=== PATIENT | female | born 1940 | race Caucasian/White ===

== ENCOUNTER 2020-06-25 08:09 | Outpatient (REF) | payer MEDICARE, SELFPAY ==
--- NOTE | 2020-06-25 08:38 | XR_ITS ---
EXAMINATION: XR RIBS, RIGHT CLINICAL INFORMATION: Pleurodynia, no injury. COMPARISON: 07/23/2014 TECHNIQUE: 3 views of the right ribs were obtained. Frontal view of the chest. FINDINGS: Lungs are clear. No consolidation, pneumothorax, or pleural effusion. The cardiomediastinal silhouette and pulmonary vasculature are normal. Aortic calcifications. Cervical fusion hardware noted. Osseous structures are unremarkable. Ribs are intact. No fractures are identified. Right upper quadrant surgical clips noted. XR/XR ribs RT min 3V w CXR1V IMPRESSION: No acute pulmonary finding. No focal rib abnormality identified.
--- NOTE | 2020-06-25 08:38 | XR_ITS ---
EXAMINATION: XR SCAPULA, RIGHT CLINICAL INFORMATION: Disorders of the bone/shoulder. COMPARISON: 08/06/2018 TECHNIQUE: AP and scapular Y views of the right scapula. FINDINGS: There is no fracture seen. Appropriate alignment of the glenohumeral joint. The acromioclavicular joint is intact. Degenerative changes present. The visualized lung is clear. The visualized ribs are intact. XR/XR scapula RT IMPRESSION: No fracture or malalignment. Degenerative change.
--- NOTE | 2020-06-25 08:38 | XR_ITS ---
EXAMINATION: XR SHOULDER, LEFT CLINICAL INFORMATION: Left shoulder pain. No injury. COMPARISON: None TECHNIQUE: Three views of the left shoulder. FINDINGS: No fracture or dislocation. The glenohumeral joint is well aligned. The joint space is maintained. Small marginal osteophytes are present. Mild hypertrophic degenerative change of the acromioclavicular joint. The visualized lung is clear. The visualized ribs are intact. Partially visualized cervical fusion hardware. XR/XR shoulder LT min 2V IMPRESSION: Mild degenerative changes throughout the left shoulder.
[2020-06-25 11:16] LABS: MANUAL DIFF FLAG NO
[2020-06-25 11:25] LABS: Basophils Percent Auto 0.3 % (0-2); Eosinophils Absolute Auto 0.1 X10*3/uL (0.0-0.4); Eosinophils Percent Auto 1.3 % (0-4); Hematocrit 35.8 % (37-47); Hemoglobin 11.7 g/dl (12.0-16.0); Imm Gran Abs Auto 0.01 X10*3/uL (0.00-0.03); Imm Gran Pct Auto 0.2 % (0.0-0.4); Lymphocytes Absolute Auto 1.5 X10*3/uL (1.2-4.9); Lymphocytes Percent Auto 23.7 % (20-40); Mean Corpuscular HGB Conc 32.7 g/dl (31.0-35.0); Mean Corpuscular Hemoglobin 30.3 pg (27.0-33.0); Mean Corpuscular Volume 92.7 fL (80-98); Mean Platelet Volume 10.2 fL (9.4-12.3); Monocytes Absolute Auto 0.4 X10*3/uL (0.1-1.2); Monocytes Percent Auto 6.9 % (2-11); Neutrophils Absolute Auto 4.2 X10*3/uL (2.0-8.3); Neutrophils Percent Auto 67.6 % (45-73); Platelet Count 245 X10*3/uL (160-400); Red Blood Count 3.86 X10*6/uL (4.20-5.50); Red Cell Distribution Width 12.6 % (11.0-16.0); White Blood Count 6.2 X10*3/uL (4.8-10.8)
[2020-06-25 11:35] LABS: Glucose Urine UA NEG (NEG); Leukocyte Esterase Urine NEG (NEG); Nitrite Urine NEG (NEG); Specific Gravity - Urine >= 1.030 (1.005-1.025); Urine Blood TRACE (NEG); Urine Ketones NEG (NEG); Urine Protein NEG (NEG-TRACE)
[2020-06-25 11:36] LABS: Appearance Urine CLOUDY; Color Urine YELLOW
[2020-06-25 11:45] LABS: Amorphous Sediment Urine 3+ /LPF; RBC Urine 0-2 /HPF (0); Squamous Epithelial Cell Urine 1+ /LPF; WBC Urine 0 /HPF (0-4)
[2020-06-25 12:08] LABS: Alanine Aminotransferase 16 U/L (0-31); Albumin Level 4.1 g/dL (3.5-5.0); Alkaline Phosphatase 101 U/L (39-117); Anion Gap 14 (12-20); Aspartate Amino Transferase 18 U/L (5-31); Bilirubin Total 0.4 mg/dL (0.0-1.0); Blood Urea Nitrogen 17 mg/dL (9-16); Calcium 8.9 mg/dL (8.4-10.2); Carbon Dioxide 23 mmol/L (22-29); Chloride 106 mmol/L (96-108); Cholesterol 198 mg/dL; Estimated Glomerular Filt Rate > 60; Glucose Fasting 101 mg/dL (60-99); HDL Cholesterol 53 mg/dL; LDL Cholesterol Calculated 116 mg/dl; Potassium 4.4 mmol/l (3.3-5.1); Sodium 139 mmol/L (135-145); Total Protein 6.8 g/dL (6.5-8.0); Triglycerides 145 mg/dL
[2020-06-25 12:14] LABS: TSH reflex Free T4 2.54 mIU/mL (0.32-4.0)
== END 2020-06-25 08:10 | disposition home or self-care (01) ==
LOC: HO.HMGCLDS 08:09
PROVIDERS: PCP Internal Medicine; Visit Provider Internal Medicine
DX: R07.81 Pleurodynia (principal); R05 Cough; M89.8X1 Other specified disorders of bone, shoulder; M54.6 Pain in thoracic spine; M25.512 Pain in left shoulder; I10 Essential (primary) hypertension; E78.00 Pure hypercholesterolemia, unspecified; E66.9 Obesity, unspecified
CPT/HCPCS: 36415; 71101; 73010; 73030; 80053; 80061; 81001; 84443; 85025

== ENCOUNTER 2020-10-20 06:45 | Outpatient (REF) | payer MEDICARE, SELFPAY ==
[2020-10-20 11:25] LABS: MANUAL DIFF FLAG NO
[2020-10-20 11:27] LABS: Glucose Urine UA NEG (NEG); Leukocyte Esterase Urine NEG (NEG); Nitrite Urine NEG (NEG); Specific Gravity - Urine 1.025 (1.005-1.025); Urine Blood NEG (NEG); Urine Ketones NEG (NEG); Urine Protein NEG (NEG-TRACE)
[2020-10-20 11:28] LABS: Appearance Urine CLEAR; Color Urine YELLOW
[2020-10-20 11:36] LABS: Basophils Percent Auto 0.3 % (0-2); Eosinophils Absolute Auto 0.1 X10*3/uL (0.0-0.4); Eosinophils Percent Auto 1.8 % (0-4); Hematocrit 36.5 % (37-47); Hemoglobin 11.7 g/dl (12.0-16.0); Imm Gran Abs Auto 0.01 X10*3/uL (0.00-0.03); Imm Gran Pct Auto 0.1 % (0.0-0.4); Lymphocytes Absolute Auto 1.9 X10*3/uL (1.2-4.9); Lymphocytes Percent Auto 28.4 % (20-40); Mean Corpuscular HGB Conc 32.1 g/dl (31.0-35.0); Mean Corpuscular Hemoglobin 30.5 pg (27.0-33.0); Mean Corpuscular Volume 95.1 fL (80-98); Mean Platelet Volume 10.4 fL (9.4-12.3); Monocytes Absolute Auto 0.6 X10*3/uL (0.1-1.2); Monocytes Percent Auto 9.3 % (2-11); Neutrophils Percent Auto 60.1 % (45-73); Platelet Count 237 X10*3/uL (160-400); Red Blood Count 3.84 X10*6/uL (4.20-5.50); Red Cell Distribution Width 13.2 % (11.0-16.0); White Blood Count 6.7 X10*3/uL (4.8-10.8)
[2020-10-20 11:51] LABS: Alanine Aminotransferase 18 U/L (0-31); Albumin Level 4.1 g/dL (3.5-5.0); Alkaline Phosphatase 110 U/L (39-117); Anion Gap 14 (12-20); Aspartate Amino Transferase 18 U/L (5-31); Bilirubin Total < 0.2 mg/dL (0.0-1.0); Blood Urea Nitrogen 14 mg/dL (9-16); Calcium 9.1 mg/dL (8.4-10.2); Carbon Dioxide 24 mmol/L (22-29); Chloride 106 mmol/L (96-108); Cholesterol 180 mg/dL; Estimated Glomerular Filt Rate > 60; Glucose Fasting 101 mg/dL (60-99); HDL Cholesterol 52 mg/dL; LDL Cholesterol Calculated 104 mg/dl; Potassium 3.7 mmol/L (3.3-5.1); Sodium 140 mmol/L (135-145); Total Protein 6.8 g/dL (6.5-8.0); Triglycerides 120 mg/dL
[2020-10-20 12:11] LABS: TSH reflex Free T4 3.12 uIU/mL (0.32-4.0)
[2020-10-20 12:24] LABS: Erythrocyte Sedimentation Rate 29 MM/HR (0-20)
== END 2020-10-20 06:46 | disposition home or self-care (01) ==
LOC: HO.HMGCLDS 06:45
PROVIDERS: PCP Internal Medicine; Visit Provider Internal Medicine
DX: E78.00 Pure hypercholesterolemia, unspecified (principal); I10 Essential (primary) hypertension; M25.512 Pain in left shoulder; M89.49 Other hypertrophic osteoarthropathy, multiple sites
CPT/HCPCS: 36415; 80053; 80061; 81003; 84443; 85025; 85652

== ENCOUNTER 2020-10-22 12:00 | Outpatient (REF) | payer MEDICARE, SELFPAY ==
--- NOTE | ~2020-10-22 | XR_ITS ---
EXAMINATION: XR CERVICAL SPINE CLINICAL INFORMATION: Cervicalgia COMPARISON: 09/01/2019 TECHNIQUE: 5 views of the cervical spine FINDINGS: Status post anterior fusion at C5-C7. There is stable anatomic alignment. Some mild disc height loss and bony spurring in the C3-C4 and C4-C5 levels. Bones are demineralized. Bony neuroforamina are grossly patent. Dens is intact. Prevertebral soft tissues are unremarkable. XR/XR cervical spine 4V IMPRESSION: Stable postsurgical changes in the cervical spine without hardware complication.
== END 2020-10-22 12:01 | disposition home or self-care (01) ==
LOC: HO.XRAY 12:00
PROVIDERS: PCP Internal Medicine; Visit Provider Internal Medicine
DX: M54.2 Cervicalgia (principal)
CPT/HCPCS: 72050

== ENCOUNTER 2020-12-14 07:39 | Outpatient (REF) | payer MEDICARE, SELFPAY ==
--- NOTE | ~2020-12-14 | XR_ITS ---
EXAMINATION: XR KNEE STANDING, BILATERAL XR KNEE, RIGHT XR KNEE, LEFT CLINICAL INFORMATION: Pain. COMPARISON: Bilateral knee radiographs dated 07/14/2016 TECHNIQUE: AP standing as well as lateral and sunrise views of the right and left knee. FINDINGS: RIGHT KNEE: Total right knee arthroplasty. No acute hardware or osseous fracture. No perihardware lucency to suggest loosening or infection. No significant joint effusion. Atherosclerotic calcifications. LEFT KNEE: Moderate medial compartment joint space narrowing. Tricompartmental marginal osteophytes. No osseous erosion. No fracture or dislocation. No significant joint effusion. Atherosclerotic calcifications. XR/XR knee RT 2V IMPRESSION: RIGHT KNEE: Total right knee arthroplasty without evidence of complication. LEFT KNEE: Moderate medial as well as mild patellofemoral and lateral compartment osteoarthritis. Findings appear progressed when compared to the most recent radiographs.
--- NOTE | ~2020-12-14 | XR_ITS ---
EXAMINATION: XR KNEE STANDING, BILATERAL XR KNEE, RIGHT XR KNEE, LEFT CLINICAL INFORMATION: Pain. COMPARISON: Bilateral knee radiographs dated 07/14/2016 TECHNIQUE: AP standing as well as lateral and sunrise views of the right and left knee. FINDINGS: RIGHT KNEE: Total right knee arthroplasty. No acute hardware or osseous fracture. No perihardware lucency to suggest loosening or infection. No significant joint effusion. Atherosclerotic calcifications. LEFT KNEE: Moderate medial compartment joint space narrowing. Tricompartmental marginal osteophytes. No osseous erosion. No fracture or dislocation. No significant joint effusion. Atherosclerotic calcifications. XR/XR knee LT 2V IMPRESSION: RIGHT KNEE: Total right knee arthroplasty without evidence of complication. LEFT KNEE: Moderate medial as well as mild patellofemoral and lateral compartment osteoarthritis. Findings appear progressed when compared to the most recent radiographs.
--- NOTE | ~2020-12-14 | XR_ITS ---
EXAMINATION: XR KNEE STANDING, BILATERAL XR KNEE, RIGHT XR KNEE, LEFT CLINICAL INFORMATION: Pain. COMPARISON: Bilateral knee radiographs dated 07/14/2016 TECHNIQUE: AP standing as well as lateral and sunrise views of the right and left knee. FINDINGS: RIGHT KNEE: Total right knee arthroplasty. No acute hardware or osseous fracture. No perihardware lucency to suggest loosening or infection. No significant joint effusion. Atherosclerotic calcifications. LEFT KNEE: Moderate medial compartment joint space narrowing. Tricompartmental marginal osteophytes. No osseous erosion. No fracture or dislocation. No significant joint effusion. Atherosclerotic calcifications. XR/XR knee standing BI IMPRESSION: RIGHT KNEE: Total right knee arthroplasty without evidence of complication. LEFT KNEE: Moderate medial as well as mild patellofemoral and lateral compartment osteoarthritis. Findings appear progressed when compared to the most recent radiographs.
== END 2020-12-14 07:40 | disposition home or self-care (01) ==
LOC: HO.HOSX 07:39
PROVIDERS: Visit Provider Orthopaedic Surgery
DX: M17.12 Unilateral primary osteoarthritis, left knee (principal); Z96.651 Presence of right artificial knee joint; Z87.891 Personal history of nicotine dependence
CPT/HCPCS: 20610; 73560; 73565; 99202; J1100

== ENCOUNTER 2021-01-06 11:16 | Outpatient (REF) | payer MEDICARE, SELFPAY ==
--- NOTE | ~2021-01-06 | MM_ITS ---
EXAMINATION: MM SCREENING DIGITAL BREAST TOMOSYNTHESIS, BILATERAL CLINICAL INFORMATION: Screening. Asymptomatic. The lifetime risk of breast cancer based on the Tyrer-Cuzick Model is 3.5%. COMPARISON: Mammography: January 03, 2020 and studies dating back to May 20, 2014 TECHNIQUE: Digital breast tomosynthesis is performed in both the craniocaudal and mediolateral oblique views along with computer-aided detection (CAD). Synthesized 2D images are generated from the tomosynthesis. FINDINGS: There are scattered areas of fibroglandular density (ACR BI-RADS breast composition Category b). There are no significant masses, abnormal calcifications, or other abnormalities. There is stability of multiplicity and bilaterality of calcifications in circumscribed densities some of which appear to be related to prominent ducts. MM/MM tomosynthesis screening BI IMPRESSION: There are no significant changes from prior study. ASSESSMENT: BI-RADS 2: Benign RECOMMENDATION: Routine annual mammography screening. This patient's information was entered into a reminder system with a target due date for their next mammogram.
== END 2021-01-06 11:17 | disposition home or self-care (01) ==
LOC: HO.MAMMO 11:16
PROVIDERS: Visit Provider Internal Medicine
DX: Z12.31 Encounter for screening mammogram for malignant neoplasm of breast (principal)
CPT/HCPCS: 77063; 77067

== ENCOUNTER → 2021-01-15 10:30 | Outpatient (BNVA) | payer MEDICARE, SELFPAY | PROVIDERS: PCP Internal Medicine; Visit Provider Orthopaedic Surgery | DX: M17.12 Unilateral primary osteoarthritis, left knee (principal) | CPT/HCPCS: 20610; 99212; J7318 ==

== ENCOUNTER 2021-02-26 07:56 | Outpatient (REF) | payer MEDICARE, SELFPAY ==
[2021-02-26 12:10] LABS: Appearance Urine CLEAR; Color Urine YELLOW; Glucose Urine UA NEG (NEG); Leukocyte Esterase Urine NEG (NEG); Nitrite Urine NEG (NEG); PH 5.5 (5.0-8.0); Specific Gravity - Urine >= 1.030 (1.005-1.025); UACC Culture Trigger NO; Urine Blood TRACE (NEG); Urine Ketones NEG (NEG); Urine Protein NEG (NEG-TRACE)
[2021-02-26 12:22] LABS: MANUAL DIFF FLAG NO
[2021-02-26 12:25] LABS: RBC Urine 0-2 /HPF (0); Squamous Epithelial Cell Urine 2+ /LPF; WBC Urine 0-2 /HPF (0-4)
[2021-02-26 12:33] LABS: Basophils Percent Auto 0.1 % (0-2); Eosinophils Absolute Auto 0.1 X10*3/uL (0.0-0.4); Hematocrit 34.8 % (37-47); Hemoglobin 11.7 g/dl (12.0-16.0); Imm Gran Abs Auto 0.02 X10*3/uL (0.00-0.03); Imm Gran Pct Auto 0.3 % (0.0-0.4); Lymphocytes Absolute Auto 1.3 X10*3/uL (1.2-4.9); Mean Corpuscular HGB Conc 33.6 g/dl (31.0-35.0); Mean Corpuscular Hemoglobin 31.1 pg (27.0-33.0); Mean Corpuscular Volume 92.6 fL (80-98); Mean Platelet Volume 10.1 fL (9.4-12.3); Monocytes Absolute Auto 0.5 X10*3/uL (0.1-1.2); Monocytes Percent Auto 6.7 % (2-11); Neutrophils Absolute Auto 5.4 X10*3/uL (2.0-8.3); Neutrophils Percent Auto 73.9 % (45-73); Platelet Count 270 X10*3/uL (160-400); Red Blood Count 3.76 X10*6/uL (4.20-5.50); Red Cell Distribution Width 12.9 % (11.0-16.0); White Blood Count 7.3 X10*3/uL (4.8-10.8)
[2021-02-26 12:58] LABS: Alanine Aminotransferase 15 U/L (0-31); Albumin Level 4.1 g/dL (3.5-5.0); Alkaline Phosphatase 106 U/L (39-117); Anion Gap 12 (12-20); Aspartate Amino Transferase 17 U/L (5-31); Bilirubin Total 0.5 mg/dL (0.0-1.0); Blood Urea Nitrogen 13 mg/dL (9-16); Calcium 9.4 mg/dL (8.4-10.2); Carbon Dioxide 25 mmol/L (22-29); Chloride 104 mmol/L (96-108); Cholesterol 193 mg/dL; Estimated Glomerular Filt Rate > 60; Glucose Fasting 99 mg/dL (60-99); HDL Cholesterol 60 mg/dL; LDL Cholesterol Calculated 108 mg/dl; Potassium 4.2 mmol/L (3.3-5.1); Sodium 137 mmol/L (135-145); Total Protein 6.8 g/dL (6.5-8.0); Triglycerides 129 mg/dL
[2021-02-26 13:24] LABS: TSH reflex Free T4 1.58 uIU/mL (0.32-4.0)
== END 2021-02-26 07:57 | disposition home or self-care (01) ==
LOC: HO.HMGCLDS 07:56
PROVIDERS: PCP Internal Medicine; Visit Provider Internal Medicine
DX: I10 Essential (primary) hypertension (principal); E78.00 Pure hypercholesterolemia, unspecified; E66.9 Obesity, unspecified
CPT/HCPCS: 36415; 80053; 80061; 81001; 84443; 85025

== ENCOUNTER → 2021-03-22 09:26 | Outpatient (BNVA) | payer MEDICARE, SELFPAY | PROVIDERS: PCP Internal Medicine; Visit Provider Orthopaedic Surgery | DX: M17.12 Unilateral primary osteoarthritis, left knee (principal) | CPT/HCPCS: 99212; J7318 ==

== ENCOUNTER → 2021-05-05 09:30 | Outpatient (BNVA) | payer MEDICARE, SELFPAY | PROVIDERS: PCP Internal Medicine; Visit Provider Orthopaedic Surgery | DX: Z01.812 Encounter for preprocedural laboratory examination (principal); Z01.810 Encounter for preprocedural cardiovascular examination ==

== ENCOUNTER 2021-07-21 07:09 | Outpatient (REF) | payer MEDICARE, SELFPAY ==
--- NOTE | ~2021-07-21 | XR_ITS ---
EXAMINATION: XR RIBS, RIGHT CLINICAL INFORMATION: Pleurodynia COMPARISON: Previous chest x-rays for a and rib x-ray May 2020 TECHNIQUE: 3 views of the right ribs and one view of the chest were obtained. FINDINGS: The cardiac and mediastinal contours are stable. The lungs are clear. There is no pleural effusion or pneumothorax. There are degenerative changes of the spine. There are postsurgical changes to the lower cervical spine. No rib fracture is seen. XR/XR ribs RT min 3V w CXR1V IMPRESSION: Degenerative changes of the thoracic spine otherwise unremarkable exam. No rib fracture seen.
[2021-07-21 11:13] LABS: MANUAL DIFF FLAG NO
[2021-07-21 11:15] LABS: Appearance Urine CLEAR; Color Urine YELLOW; Glucose Urine UA NEG (NEG); Leukocyte Esterase Urine NEG (NEG); Nitrite Urine NEG (NEG); PH 5.5 (5.0-8.0); Specific Gravity - Urine 1.025 (1.005-1.025); Urine Blood NEG (NEG); Urine Ketones NEG (NEG); Urine Protein NEG (NEG-TRACE)
[2021-07-21 11:18] LABS: Basophils Percent Auto 0.3 % (0-2); Eosinophils Absolute Auto 0.1 X10*3/uL (0.0-0.4); Hematocrit 37.9 % (37.0-47.0); Hemoglobin 12.2 g/dl (12.0-16.0); Imm Gran Abs Auto 0.03 X10*3/uL (0.00-0.03); Imm Gran Pct Auto 0.5 % (0.0-0.4); Lymphocytes Absolute Auto 1.6 X10*3/uL (1.2-4.9); Lymphocytes Percent Auto 24.1 % (20-40); Mean Corpuscular HGB Conc 32.2 g/dl (31.0-35.0); Mean Corpuscular Hemoglobin 29.9 pg (27.0-33.0); Mean Corpuscular Volume 92.9 fL (80.0-98.0); Mean Platelet Volume 10.3 fL (9.4-12.3); Monocytes Absolute Auto 0.5 X10*3/uL (0.1-1.2); Monocytes Percent Auto 7.3 % (2-11); Neutrophils Absolute Auto 4.2 x10*3/uL (2.0-8.3); Neutrophils Percent Auto 65.8 % (45-73); Platelet Count 261 X10*3/uL (160-400); Red Blood Count 4.08 X10*6/uL (4.20-5.50); Red Cell Distribution Width 13.1 % (11.0-16.0); White Blood Count 6.4 X10*3/uL (4.8-10.8)
[2021-07-21 11:52] LABS: Alanine Aminotransferase 13 U/L (0-31); Albumin Level 4.1 g/dL (3.5-5.0); Alkaline Phosphatase 106 U/L (39-117); Anion Gap 14 (12-20); Aspartate Amino Transferase 16 U/L (5-31); Bilirubin Total 0.3 mg/dL (0.0-1.0); Blood Urea Nitrogen 16 mg/dL (9-16); Calcium 9.5 mg/dL (8.4-10.2); Carbon Dioxide 23 mmol/L (22-29); Chloride 109 mmol/L (96-108); Cholesterol 192 mg/dL; Estimated Glomerular Filt Rate > 60; Glucose Fasting 106 mg/dL (60-99); HDL Cholesterol 52 mg/dL; LDL Cholesterol Calculated 116 mg/dl; Potassium 4.1 mmol/L (3.3-5.1); Sodium 142 mmol/L (135-145); Total Protein 7.1 g/dL (6.5-8.0); Triglycerides 124 mg/dL
[2021-07-21 11:59] LABS: Vitamin D 25-OH Total 25.3 ng/mL (>30)
== END 2021-07-21 07:10 | disposition home or self-care (01) ==
LOC: HO.HMGCLDS 07:09
PROVIDERS: Visit Provider Internal Medicine
DX: R07.81 Pleurodynia (principal); E55.9 Vitamin D deficiency, unspecified; E78.00 Pure hypercholesterolemia, unspecified; I10 Essential (primary) hypertension
CPT/HCPCS: 36415; 71101; 80053; 80061; 81003; 82306; 84443; 85025

== ENCOUNTER 2021-11-15 07:29 | Outpatient (REF) | payer MEDICARE, SELFPAY ==
[2021-11-15 11:18] LABS: MANUAL DIFF FLAG NO
[2021-11-15 11:27] LABS: Basophils Percent Auto 0.4 % (0-2); Eosinophils Absolute Auto 0.1 X10*3/uL (0.0-0.4); Eosinophils Percent Auto 1.5 % (0-4); Hematocrit 34.8 % (37.0-47.0); Hemoglobin 11.5 g/dl (12.0-16.0); Imm Gran Abs Auto 0.03 X10*3/uL (0.00-0.03); Imm Gran Pct Auto 0.4 % (0.0-0.4); Lymphocytes Absolute Auto 1.6 X10*3/uL (1.2-4.9); Lymphocytes Percent Auto 24.6 % (20-40); Mean Corpuscular Hemoglobin 30.8 pg (27.0-33.0); Mean Corpuscular Volume 93.3 fL (80.0-98.0); Mean Platelet Volume 10.2 fL (9.4-12.3); Monocytes Absolute Auto 0.5 X10*3/uL (0.1-1.2); Monocytes Percent Auto 8.1 % (2-11); Neutrophils Absolute Auto 4.3 x10*3/uL (2.0-8.3); Platelet Count 263 X10*3/uL (160-400); Red Blood Count 3.73 X10*6/uL (4.20-5.50); Red Cell Distribution Width 13.1 % (11.0-16.0); White Blood Count 6.7 X10*3/uL (4.8-10.8)
[2021-11-15 12:01] LABS: Alanine Aminotransferase 13 U/L (0-31); Albumin Level 4.1 g/dL (3.5-5.0); Alkaline Phosphatase 107 U/L (39-117); Anion Gap 11 (12-20); Aspartate Amino Transferase 15 U/L (5-31); Bilirubin Total 0.4 mg/dL (0.0-1.0); Blood Urea Nitrogen 13 mg/dL (9-16); Calcium 9.2 mg/dL (8.4-10.2); Carbon Dioxide 26 mmol/L (22-29); Chloride 104 mmol/L (96-108); Cholesterol 199 mg/dL; Estimated Glomerular Filt Rate > 60; Glucose Fasting 110 mg/dL (60-99); HDL Cholesterol 51 mg/dL; LDL Cholesterol Calculated 119 mg/dl; Potassium 5.3 mmol/L (3.3-5.1); Sodium 136 mmol/L (135-145); Total Protein 6.8 g/dL (6.5-8.0); Triglycerides 149 mg/dL
[2021-11-15 12:07] LABS: TSH reflex Free T4 2.99 uIU/mL (0.32-4.0); Vitamin D 25-OH Total 25.4 ng/mL (>30)
== END 2021-11-15 07:30 | disposition home or self-care (01) ==
LOC: HO.HMGCLDS 07:29
PROVIDERS: Visit Provider Internal Medicine
DX: E78.00 Pure hypercholesterolemia, unspecified (principal); I10 Essential (primary) hypertension; E55.9 Vitamin D deficiency, unspecified
CPT/HCPCS: 36415; 80053; 80061; 82306; 84443; 85025

== ENCOUNTER 2022-01-18 11:40 | Outpatient (REF) | payer MEDICARE, SELFPAY ==
--- NOTE | ~2022-01-18 | MM_ITS ---
EXAMINATION: MM SCREENING DIGITAL BREAST TOMOSYNTHESIS, BILATERAL CLINICAL INFORMATION: Screening. Asymptomatic. The lifetime risk of breast cancer based on the Tyrer-Cuzick Model is 1.5%. COMPARISON: Mammography: January 06, 2021 and studies dating back to May 20, 2014 TECHNIQUE: Digital breast tomosynthesis is performed in both the craniocaudal and mediolateral oblique views along with computer-aided detection (CAD). Synthesized 2D images are generated from the tomosynthesis. FINDINGS: There are scattered areas of fibroglandular density (ACR BI-RADS breast composition Category b). There are no new significant masses, abnormal calcifications, or other abnormalities. MM/MM tomosynthesis screening BI IMPRESSION: No significant changes from prior exam. ASSESSMENT: BI-RADS 1: Negative RECOMMENDATION: Routine annual mammography screening. This patient's information was entered into a reminder system with a target due date for their next mammogram.
== END 2022-01-18 11:41 | disposition home or self-care (01) ==
LOC: HO.MAMMO 11:40
PROVIDERS: Visit Provider Internal Medicine
DX: Z12.31 Encounter for screening mammogram for malignant neoplasm of breast (principal)
CPT/HCPCS: 77063; 77067

== ENCOUNTER 2022-03-22 06:11 | Outpatient (REF) | payer MEDICARE, SELFPAY ==
[2022-03-22 11:06] LABS: MANUAL DIFF FLAG NO
[2022-03-22 11:16] LABS: Appearance Urine Clear; Color Urine Yellow; Glucose Urine UA Negative (Negative); Leukocyte Esterase Urine Small (1+) (Negative); Nitrite Urine Negative (Negative); Specific Gravity - Urine 1.015 (1.005-1.025); UMIC TRIGGER UACC YES; Urine Blood Negative (Negative); Urine Ketones Negative (Negative); Urine Protein Negative (Neg-Trace)
[2022-03-22 11:28] LABS: Bacteria Urine None Seen (None Seen); Hyaline Casts Urine 0-2 /LPF (0-2); RBC Urine 0-2 /HPF (0-2); Squamous Epithelial Cell Urine 0-2 /HPF (0-2); UACC Culture Trigger YES; WBC Urine 0-5 /HPF (0-5)
[2022-03-22 11:35] LABS: Estimated Average Glucose 120 mg/dL; Hemoglobin A1c % 5.8 %
[2022-03-22 11:36] LABS: Basophils Percent Auto 0.3 % (0-2); Eosinophils Absolute Auto 0.1 X10*3/uL (0.0-0.4); Eosinophils Percent Auto 1.7 % (0-4); Hematocrit 34.9 % (37.0-47.0); Hemoglobin 11.4 g/dl (12.0-16.0); Imm Gran Abs Auto 0.03 X10*3/uL (0.00-0.03); Imm Gran Pct Auto 0.4 % (0.0-0.4); Lymphocytes Absolute Auto 1.9 X10*3/uL (1.2-4.9); Lymphocytes Percent Auto 27.7 % (20-40); Mean Corpuscular HGB Conc 32.7 g/dl (31.0-35.0); Mean Corpuscular Hemoglobin 30.5 pg (27.0-33.0); Mean Corpuscular Volume 93.3 fL (80.0-98.0); Mean Platelet Volume 10.3 fL (9.4-12.3); Monocytes Absolute Auto 0.6 X10*3/uL (0.1-1.2); Monocytes Percent Auto 8.5 % (2-11); Neutrophils Absolute Auto 4.2 x10*3/uL (2.0-8.3); Neutrophils Percent Auto 61.4 % (45-73); Platelet Count 270 X10*3/uL (160-400); Red Blood Count 3.74 X10*6/uL (4.20-5.50); Red Cell Distribution Width 13.4 % (11.0-16.0); White Blood Count 6.9 X10*3/uL (4.8-10.8)
[2022-03-22 12:05] LABS: Alanine Aminotransferase 13 U/L (0-31); Alkaline Phosphatase 101 U/L (39-117); Anion Gap 15 (12-20); Aspartate Amino Transferase 17 U/L (5-31); Bilirubin Total 0.2 mg/dL (0.0-1.0); Blood Urea Nitrogen 16 mg/dL (9-16); Calcium 9.4 mg/dL (8.4-10.2); Carbon Dioxide 25 mmol/L (22-29); Chloride 106 mmol/L (96-108); Cholesterol 197 mg/dL; Estimated Glomerular Filt Rate > 60; Glucose Fasting 103 mg/dL (60-99); HDL Cholesterol 49 mg/dL; LDL Cholesterol Calculated 114 mg/dl; Potassium 4.4 mmol/L (3.3-5.1); Sodium 142 mmol/L (135-145); Total Protein 6.8 g/dL (6.5-8.0); Triglycerides 174 mg/dL
[2022-03-22 12:30] LABS: TSH reflex Free T4 4.85 uIU/mL (0.32-4.0)
[2022-03-22 13:02] LABS: Free T4 (Free Thyroxine) 0.75 ng/dL (0.71-1.85)
== END 2022-03-22 06:12 | disposition home or self-care (01) ==
LOC: HO.HMGCLDS 06:11
PROVIDERS: PCP Internal Medicine; Visit Provider Internal Medicine
DX: I10 Essential (primary) hypertension (principal); E55.9 Vitamin D deficiency, unspecified; R73.01 Impaired fasting glucose; E78.00 Pure hypercholesterolemia, unspecified
CPT/HCPCS: 36415; 80053; 80061; 81001; 82306; 83036; 84439; 84443; 85025; 87086

== ENCOUNTER 2022-12-19 07:22 | Outpatient (REF) | payer MEDICARE, SELFPAY ==
[2022-12-19 11:32] LABS: MANUAL DIFF FLAG NO
[2022-12-19 11:43] LABS: Basophils Percent Auto 0.3 % (0-2); Eosinophils Absolute Auto 0.1 X10*3/uL (0.0-0.4); Eosinophils Percent Auto 1.7 % (0-4); Hematocrit 35.1 % (37.0-47.0); Hemoglobin 11.6 g/dl (12.0-16.0); Imm Gran Abs Auto 0.03 X10*3/uL (0.00-0.03); Imm Gran Pct Auto 0.4 % (0.0-0.4); Lymphocytes Absolute Auto 1.7 X10*3/uL (1.2-4.9); Lymphocytes Percent Auto 24.6 % (20-40); Mean Corpuscular Hemoglobin 30.4 pg (27.0-33.0); Mean Corpuscular Volume 91.9 fL (80.0-98.0); Mean Platelet Volume 10.1 fL (9.4-12.3); Monocytes Absolute Auto 0.6 X10*3/uL (0.1-1.2); Monocytes Percent Auto 8.3 % (2-11); Neutrophils Absolute Auto 4.5 x10*3/uL (2.0-8.3); Neutrophils Percent Auto 64.7 % (45-73); Platelet Count 258 X10*3/uL (160-400); Red Blood Count 3.82 X10*6/uL (4.20-5.50); Red Cell Distribution Width 12.9 % (11.0-16.0)
[2022-12-19 11:46] LABS: Appearance Urine Clear; Color Urine Yellow; Glucose Urine UA Negative (Negative); Leukocyte Esterase Urine Negative (Negative); Nitrite Urine Negative (Negative); PH 5.5 (5.0-9.0); Specific Gravity - Urine 1.015 (1.005-1.025); Urine Blood Negative (Negative); Urine Ketones Negative (Negative); Urine Protein Negative (Neg-Trace)
[2022-12-19 12:01] LABS: Alanine Aminotransferase 17 U/L (0-31); Alkaline Phosphatase 116 U/L (39-117); Anion Gap 13 (12-20); Aspartate Amino Transferase 20 U/L (5-31); Bilirubin Total 0.3 mg/dL (0.0-1.0); Blood Urea Nitrogen 13 mg/dL (9-16); Calcium 9.3 mg/dL (8.4-10.2); Carbon Dioxide 24 mmol/L (22-29); Chloride 103 mmol/L (96-108); Cholesterol 176 mg/dL; Estimated Glomerular Filt Rate > 60; Glucose Fasting 103 mg/dL (60-99); HDL Cholesterol 51 mg/dL; LDL Cholesterol Calculated 102 mg/dl; Potassium 4.1 mmol/L (3.3-5.1); Sodium 136 mmol/L (135-145); Total Protein 7.1 g/dL (6.5-8.0); Triglycerides 117 mg/dL
[2022-12-19 12:02] LABS: Estimated Average Glucose 120 mg/dL; Hemoglobin A1c % 5.8 %
[2022-12-19 12:18] LABS: Free T4 (Free Thyroxine) 0.74 ng/dL (0.71-1.85); Thyroid Stimulating Hormone 2.77 uIU/mL (0.32-4.0); Vitamin D 25-OH Total 43.4 ng/mL (>30)
== END 2022-12-19 07:23 | disposition home or self-care (01) ==
LOC: HO.HMGCLDS 07:22
PROVIDERS: PCP Internal Medicine; Visit Provider Internal Medicine
DX: E78.00 Pure hypercholesterolemia, unspecified (principal); R30.0 Dysuria; E03.9 Hypothyroidism, unspecified; R79.89 Other specified abnormal findings of blood chemistry; E11.9 Type 2 diabetes mellitus without complications; I10 Essential (primary) hypertension; E55.9 Vitamin D deficiency, unspecified
CPT/HCPCS: 36415; 80053; 80061; 81003; 82306; 83036; 84439; 84443; 85025

== ENCOUNTER 2022-12-20 10:57 | Outpatient (AMB) | payer MEDICARE, SELFPAY ==
[2022-12-20 11:00] VITALS: BP 130/78; PULSE 71; O2SAT 98; BMI 30.2
--- NOTE | 2022-12-20 11:00 | MHC.PC.OV ---
Vital Signs 12/20/22 11:00 Height 5 ft 3 in Weight 170 lb 4 oz BMI 30.2 BP 130/78 Blood Pressure Location Lt brachial Position Sitting Pulse 71 Pulse Source Pulse Oximeter Pulse Oximetry (%) 98 Oxygen Delivery Method Room Air Intake Visit Reasons: HTN, hyperlipidemia, lumbar DDD Migration Specialist Required: No Accompanied by: Self / Same As Patient Allergies sertraline [SERTRALINE] Allergy (Severe, Verified 12/20/22 11:55) DROPPED SODIUM LEVEL, BP increase Sodium drop aspirin [ASPIRIN] Allergy (Intermediate, Verified 12/20/22 11:55) RISK OF BLEDING NSAIDS (Non-Steroidal Anti-Inflamma Allergy (Unknown, Verified 12/20/22 11:55) risk of bleeding phenytoin [Dilantin] Allergy (Unknown, Verified 12/20/22 11:55) unknown Medication List - Last Reconciled 12/20/22 by Kelvin Pruett MD amlodipine 5 mg PO DAILY atenolol 50 mg PO DAILY atorvastatin 80 mg PO DAILY carbamide peroxide 6.5% (Debrox) 5 drps otic (ears) DAILY 7 days fluticasone propionate 50 mcg/actuation 2 sprays intranasal DAILY PRN irbesartan 300 mg PO DAILY lorazepam 0.5 mg PO BID PRN 30 days mirtazapine 15 mg PO BEDTIME 90 days Myrbetriq ER (mirabegron) 25 mg PO DAILY NS oxcarbazepine TAKE 1 TABLET BY MOUTH DAILY IN THE MORNING AND 2 TABLETS BY MOUTH DAILY IN THE EVENING oxycodone 5 mg PO Q6H PRN 28 days trazodone 150 mg PO BEDTIME Tobacco use date assessed: 12/20/22 Fall risk assessment: No Falls in past year Last assessed Fall Risk: 12/20/22 Dental Screening Dental Screen Date: 12/20/22 Did you have a dental visit in the last 12 months?: No Did you have a dental problem in the last 6 months where you did not have access to dental care?: No Was dental information given to patient?: No HPI HTN, hyperlipidemia, lumbar DDD HPI Details Patient comes in today for her follow up visit States that she has been experiencing increasing pain in her left knee lately and has been having a hard time walking as a results Used to see Dr. No for orhtopedic follow up but has not been back to see him in almost 2 years now Denies any recent injury or trauma to her knee Has also been experiencing some recurrent itching in both of her ears lately and has noticed at times recently that something seems to be popping' in her ears; denies any ear pain States that she feels okay otherwise She denies any headaches or dizziness Denies any chest pains, no increased SOB No nausea/vomiting, no abdominal pain No change in bowel habits noted States that her neck pain (chronic) remain adequately controlled on her current Rx Needs her Oxycodone Rx refilled Had her follow up labs done yesterday - to discuss her results [facility] Medical History Allergic rhinitis Anxiety Benign essential hypertension Degenerative disc disease, cervical Depression Epilepsy Insomnia Left shoulder pain Neck pain Obesity (BMI 30-39.9) Osteoarthritis Pain of right scapula Pure hypercholesterolemia Recurrent dry cough Rib pain on right side Right-sided thoracic back pain Urinary frequency Surgical History History of kidney surgery History of knee replacement procedure of right knee Hx of colonoscopy Hx of knee surgery Status post cervical disc replacement Family History Father Chronic mental illness Mother Hypertension Other Mental health problem Social History Housing: House Alcohol intake: current Alcohol intake frequency: holidays/special occasions only Alcohol type: wine Patient Tobacco Use Status: Former Tobacco user Tobacco use type: Cigarette e-Cigarette/Vaping Use: Never Used Second Hand Smoke Exposure: Yes service: No Current occupational status: retired Cognitive needs: No Hearing needs: No Vision needs: No Questionnaire PHQ-9 Over the last 2 weeks, how often have you been bothered by any of the following problems? 1. Little interest or pleasure in doing things: not at all 2. Feeling down, depressed, or hopeless: not at all 3. Trouble falling or staying asleep, or sleeping too much: not at all 4. Feeling tired or having little energy: not at all 5. Poor appetite or overeating: not at all 6. Feeling bad about yourself - or that you are a failure or have let yourself or your family down: not at all 7. Trouble concentrating on things, such as reading the newspaper or watching television: not at all 8. Moving or speaking so slowly that other people could have noticed. Or the opposite - being so fidgety or restless that you have been moving around a lot more than usual: not at all 9. Thoughts that you would be better off or of hurting yourself in some way: not at all Total score: 0 Depression Screening Interpretation: Negative 65302 - PHQ-9 Billing: Yes Source: Developed by Drs. Michoacano Hanson, Dayanna Car, Javier Spain and colleagues, with an educational zach from [employer]. Thrive Questionnaire Date Thrive assessed: 12/20/22 I am a: Patient What is your living situation today?: I have a steady place to live Within the past 12 months, did the food you bought not last and you didn't have the money to get more?: Never true Within the past 12 months, did you worry whether your food would run out before you got money to buy more?: Never true Do you have trouble paying for medicines?: No Do you have trouble getting transportation to medical appointments?: No Do you have trouble paying your heating and electricity bill?: No Do you have trouble taking care of your child, family member or friend?: No Do you have trouble with day-to-day activities such as bathing, preparing meals, shopping, managing finances, etc.?: No Are you currently unemployed and looking for a job?: No Are you interested in more education?: No Please select the resources that you would like help with: None Currently or been in a relationship where the following occur: no concerns reported AUDIT C Alcohol Use Questionnaire (AUDIT-C) 1. How often do you have a drink containing alcohol?: Never 3. How often do you have six or more drinks on one occasion?: Never Total Score: 0 Score Reviewed/Action Taken: Yes FEI-7 AMB Questionnaire FEI-7 Date FEI - 7 assessed: 12/20/22 Feeling nervous, anxious, or on edge: 0 = Not at all Not being able to stop or control worryin = Not at all Worrying too much about different things: 0 = Not at all Trouble relaxin = Not at all Being so restless that it is hard to sit still: 0 = Not at all Becoming easily annoyed or irritable: 0 = Not at all Feeling afraid as if something awful might happen: 0 = Not at all Total FEI-7 score (0-4 normal; 5-9 mild; 10-14 moderate; 15-21 severe): 0 Source: Developed by Drs. Michoacano Hanson, Dayanna Car, Javier Spain and colleagues, with an educational zach from [employer]. Review of Systems Const Denies chills, Reports fatigue, Denies fever(s) and Denies headache(s) ENT Denies dysphagia, Denies dizziness, Denies otalgia (but (+) recurrent itching and occasional popping sensation - see HPI), Denies headache(s), Reports neck pain, Denies sinus pain and Denies sore throat Card Denies chest pain, Denies palpitations and Denies dyspnea Resp Denies cough and Denies dyspnea GI Denies abdominal pain, Denies constipation, Denies dysphagia, Denies heartburn, Denies diarrhea, Denies nausea and Denies vomiting Denies difficulty voiding, Denies nocturia and Denies dysuria Musc Reports back pain, Reports arthralgias (left knee - increasing lately) and Reports neck pain Neuro Denies dizziness and Denies headache(s) Endo Reports fatigue and Denies palpitations Physical exam (Primary Care) Vital Signs: Last Vital Signs Pulse 71 12/20/22 11:00 BP 130/78 12/20/22 11:00 Pulse Ox 98 12/20/22 11:00 Oxygen Delivery Method Room Air 12/20/22 11:00 BMI result Body Mass Index 30.2 Tobacco/Smoking Status: Tobacco use Status Tobacco use date assessed 12/20/22 12/20/22 11:07 Patient Tobacco Use Status Former Tobacco user 12/20/22 11:07 Tobacco use type Cigarette 12/20/22 11:07 e-Cigarette/Vaping Use Never Used 12/20/22 11:07 PHQ-9: PHQ-9 Score PHQ-9: Total score 0 12/20/22 11:07 Depression Screening Interpretation: Negative Thrive Assessment: Date of Thrive Assessment Date Thrive assessed 12/20/22 12/20/22 11:07 Currently or been in a relationship where the following occur: no concerns reported Const General: no acute distress and alert HENMT Ears: unable to visualize TM bilaterally (due to excessive cerumen in both ear canals) Throat: Yes posterior oropharynx normal and Yes tonsils normal (no TP congestion noted) Neck Neck: Yes no lymphadenopathy and Yes tender Resp Auscultation: clear to auscultation bilaterally, no rales and no wheezes Cardio Rate: regular rate Rhythm: regular rhythm Heart sounds: no murmurs GI Palpation (GI): Soft to palpation and nontender Auscultation: normal bowel sounds Back/Spine/Pelvis Cervical Spine: Cervical spine tenderness Thoracic/Lumbar Spine: lumbar spinal tenderness Extrem General: Yes no clubbing, cyanosis or edema Left lower extremity: knee Details: tenderness and crepitus; no swelling Results Reviewed Results Reviewed: Laboratory Tests 12/19/22 12/19/22 12/19/22 07:33 07:33 07:33 WBC 7.0 Hgb 11.6 L Hct 35.1 L Plt Count 258 Sodium 136 Potassium 4.1 Creatinine 0.76 Estimated GFR > 60 Fasting Glucose 103 H Hemoglobin A1c % Calcium 9.3 AST 20 ALT 17 Triglycerides 117 Cholesterol 176 LDL Cholesterol, Calc 102 HDL Cholesterol 51 25-OH Vitamin D Total 43.4 TSH 2.77 Free T4 0.74 Ur Specific [place] 1.015 Urine Protein Negative Urine Glucose (UA) Negative Urine Blood Negative 12/19/22 07:33 WBC Hgb Hct Plt Count Sodium Potassium Creatinine Estimated GFR Fasting Glucose Hemoglobin A1c % 5.8 Calcium AST ALT Triglycerides Cholesterol LDL Cholesterol, Calc HDL Cholesterol 25-OH Vitamin D Total TSH Free T4 Ur Specific [place] Urine Protein Urine Glucose (UA) Urine Blood Assessment and Plan Assessment & Plan (1) Benign essential hypertension: Code(s): I10 - Essential (primary) hypertension Plan: Reinforced low-sodium diet - goal is systolic BP of at least 140 to 150 mm or less Continue Atenolol 50 mg QD, Amlodipine 5 mg QD and Irbesartan 300 mg QD (2) Pure hypercholesterolemia: Code(s): E78.00 - Pure hypercholesterolemia, unspecified Plan: Results of her labs done yesterday reviewed and discussed with patient - lipids have improved slightly from previous Reinforced low-cholesterol diet Continue Atorvastatin 80 mg QD Will recheck labs in 4 months for follow-up (3) Degenerative disc disease, cervical: Comment: S/P anterior fusion of C5-C7 in 2011 Code(s): M50.30 - Other cervical disc degeneration, unspecified cervical region Plan: States that her neck pain has been mostly manageable lately Cervical spine x-rays done in September 2020 revealed stable post-surgical changes and some mild degenerative changes in the cervical spine Will consider referral again to physical therapy if her neck pain flares up (4) Osteoarthritis: Comment: Involving multiple joints, including both shoulders and the right knee Code(s): M19.90 - Unspecified osteoarthritis, unspecified site Qualifiers: Osteoarthritis location: multiple joints Osteoarthritis type: primary Qualified Code(s): M89.49 - Other hypertrophic osteoarthropathy, multiple sites Plan: Shoulder x-rays in May 2020 revealed (+) degenerative changes S/P right knee arthroplasty in 2015 with significant improvement of her symptoms; has been experiencing increasing left knee pain for the past couple of years Had injections into her left knee a couple of years ago without any significant relief and states that she was seriously considering knee replacement surgery on her left knee for a while but her knee pain appears to have subsided lately Continue Oxycodone 5 mg every 6 hours as needed for severe pain (Rx refilled) and Celecoxib 200 mg QD PRN Used to follow up with orthopedics but has not been seen in a while - will refer back to orthopedics for her recently increasing left knee pain (5) Elevated TSH: Code(s): R79.89 - Other specified abnormal findings of blood chemistry Plan: Her serum TSH was slightly elevated back in February 2022 and her free T4 was in the low normal range back then but her TFTs are all back to normal on her labs done yesterday Will continue to monitor her TFTs closely (6) Epilepsy: Code(s): G40.909 - Epilepsy, unspecified, not intractable, without status epilepticus Qualifiers: Epilepsy type: unspecified Intractability: not intractable Status epilepticus: without status epilepticus Qualified Code(s): G40.909 - Epilepsy, unspecified, not intractable, without status epilepticus Plan: Stable with no recent recurrence Continue Trileptal 300 mg 1 tablet Q AM and 2 tablets Q PM Follow up with neurology as scheduled (7) Overactive bladder: Code(s): N32.81 - Overactive bladder Plan: Continue Myrbetriq ER 25 mg QD Follow up with urology as scheduled (8) Excessive cerumen in both ear canals: Code(s): H61.23 - Impacted cerumen, bilateral Plan: Will have patient start using some Debrox ear drops BID x 7 days and instructed on self-irrigation of her ears while in the shower If this is unsuccessful, will then consider referring patient to ENT for ear irrigation / disimpaction (9) Insomnia: Code(s): G47.00 - Insomnia, unspecified Qualifiers: Insomnia type: unspecified Qualified Code(s): G47.00 - Insomnia, unspecified Plan: Sleep hygiene reinforced Continue Trazodone 100 mg 1.5 tablets (150 mg) Q HS PRN (10) Anxiety: Code(s): F41.9 - Anxiety disorder, unspecified Plan: Continue Lorazepam 0.5 mg 1 to 2 tablets once a day at bedtime as needed (11) Depression: Code(s): F32.9 - Major depressive disorder, single episode, unspecified Qualifiers: Depression Type: unspecified Qualified Code(s): F32.9 - Major depressive disorder, single episode, unspecified Plan: Continue Mirtazapine 15 mg Q HS (12) Obesity (BMI 30-39.9): Code(s): E66.9 - Obesity, unspecified Plan: Reinforced diet/exercise as tolerated/lose weight, although due to her age, comorbidites and physical condition/issues, her activity and exercise tolerance is very limited Plan Follow up in 4 months Orders: Orders Comprehensive [place]. Panel Fast 4 Months E78.00 - Pure hypercholesterolemia, unspecified Lipid Panel 4 Months E78.00 - Pure hypercholesterolemia, unspecified TSH reflex Free T4 4 Months E78.00 - Pure hypercholesterolemia, unspecified Vitamin D 25-OH Total 4 Months E55.9 - Vitamin D deficiency, unspecified Complete Blood Count Auto Diff 4 Months I10 - Essential (primary) hypertension UA CC w/rflx Micro + Cult 4 Months R30.0 - Dysuria Referrals Orthopedics Referral M17.12 - Unilateral primary osteoarthritis, left knee Medications: New carbamide peroxide 6.5% (Debrox) 5 drps otic (ears) DAILY 7 days 15 mL 0RF Refilled oxycodone 5 mg PO Q6H 28 days PRN 112 tabs 0RF pain M89.49 - Other hypertrophic osteoarthropathy, multiple sites Coding Level of Care Code Est Pt Level 4 (46755) Diagnoses Benign essential hypertension I10 Pure hypercholesterolemia E78.00 Degenerative disc disease, cervical M50.30 Osteoarthritis M89.49 Osteoarthritis location: multiple joints Osteoarthritis type: primary Elevated TSH R79.89 Epilepsy G40.909 Epilepsy type: unspecified Intractability: not intractable Status epilepticus: without status epilepticus Overactive bladder N32.81 Excessive cerumen in both ear canals H61.23 Insomnia G47.00 Insomnia type: unspecified Anxiety F41.9 Depression F32.9 Depression Type: unspecified Obesity (BMI 30-39.9) E66.9
== END 2022-12-20 11:53 | disposition home or self-care (01) ==
PROVIDERS: Visit Provider Internal Medicine
DX: I10 Essential (primary) hypertension (principal); G40.909 Epilepsy, unspecified, not intractable, without status epilepticus; Z68.30 Body mass index [BMI] 30.0-30.9, adult; F41.9 Anxiety disorder, unspecified; F32.9 Major depressive disorder, single episode, unspecified; E78.00 Pure hypercholesterolemia, unspecified; M50.30 Other cervical disc degeneration, unspecified cervical region; M89.49 Other hypertrophic osteoarthropathy, multiple sites; R79.89 Other specified abnormal findings of blood chemistry; N32.81 Overactive bladder; H61.23 Impacted cerumen, bilateral; E66.9 Obesity, unspecified
CPT/HCPCS: 99214

== ENCOUNTER 2023-01-26 10:07 | Outpatient (REF) | payer MEDICARE, SELFPAY ==
--- NOTE | ~2023-01-26 | MM_ITS ---
EXAMINATION: MM SCREENING DIGITAL BREAST TOMOSYNTHESIS, BILATERAL CLINICAL INFORMATION: Screening. Asymptomatic. COMPARISON: Mammography: This study is compared with prior exams dating back to 2018. TECHNIQUE: Digital breast tomosynthesis is performed in both the craniocaudal and mediolateral oblique views along with computer-aided detection (CAD). Synthesized 2D images are generated from the tomosynthesis. FINDINGS: There are scattered areas of fibroglandular density (ACR BI-RADS breast composition Category b). There is a focal asymmetry in the upper inner quadrant of the left breast for which additional mammographic imaging is advised. Targeted sonography may be performed at the discretion of the diagnostic radiologist. The remainder of the left breast is normal. In the right breast, there are no significant masses, abnormal calcifications, or other abnormalities. MM/MM tomosynthesis screening BI IMPRESSION: Focal asymmetry of the left breast warrants additional mammographic imaging. No mammographic signs of malignancy right breast. ASSESSMENT: BI-RADS BI-RADS 0 - Incomplete: Needs additional Imaging. RECOMMENDATION: 1. Additional views of the left breast 2. Targeted ultrasound if warranted after review of the additional views. 3. Radiology department staff will contact the patient for additional imaging. Additional Imaging required This examination should not preclude the clinical evaluation of a suspicious palpable abnormality. This patient's information was entered into a reminder system with a target due date for their next mammogram.
== END 2023-01-26 10:08 | disposition home or self-care (01) ==
LOC: HO.MAMMO 10:07
PROVIDERS: PCP Internal Medicine; Visit Provider Internal Medicine
DX: Z12.31 Encounter for screening mammogram for malignant neoplasm of breast (principal)
CPT/HCPCS: 77063; 77067

== ENCOUNTER → 2023-01-26 10:15 | Outpatient (BNV) | payer MEDICARE, SELFPAY | PROVIDERS: PCP Internal Medicine; Visit Provider Radiology Diagnostic Radiology | DX: Z12.31 Encounter for screening mammogram for malignant neoplasm of breast (principal) | CPT/HCPCS: 77063; 77067 ==

== ENCOUNTER → 2023-02-09 11:00 | Outpatient (BNV) | payer MEDICARE, SELFPAY | PROVIDERS: PCP Internal Medicine; Visit Provider Radiology Diagnostic Radiology | DX: N63.22 Unspecified lump in the left breast, upper inner quadrant (principal) | CPT/HCPCS: 76642; 77061; 77065 ==

== ENCOUNTER 2023-02-09 11:51 | Outpatient (REF) | payer MEDICARE, SELFPAY ==
--- NOTE | ~2023-02-09 | MM_ITS ---
EXAMINATION: MM DIAGNOSTIC DIGITAL BREAST TOMOSYNTHESIS, LEFT US BREAST LIMITED, LEFT MAMMOGRAPHY: CLINICAL INFORMATION: Diagnostic follow-up for asymmetric density seen left breast upper inner quadrant, middle one third. COMPARISON: Mammography: Screening mammography 01/26/2023, 01/18/2022, and 01/06/2021. TECHNIQUE: Digital left breast tomosynthesis is performed utilizing left full-field 3-D mediolateral view, as well as left 3-D spot compression MLO and CC, views along with computer-aided detection (CAD). Synthesized 2D images are generated from the tomosynthesis. FINDINGS: There are scattered areas of fibroglandular density (ACR BI-RADS breast composition Category b). In the 10:00 axis of the left breast, middle one third, there is a persistent area of architectural distortion which does not dissipate on spot compression views and is also present persisting on the left mediolateral view. Finding is suspicious and will be evaluated by ultrasound. No additional suspicious findings left breast. There are a few scattered benign-appearing calcifications including vascular calcifications. ULTRASOUND: CLINICAL INFORMATION: Evaluate area of architectural distortion left breast 10:00 axis, middle one third, seen on screening exam. COMPARISON: None relevant. Mammography dated 01/26/2023, and 02/09/2023. TECHNIQUE: Targeted sonographic evaluation was performed using a high frequency linear transducer, with specific attention to the upper inner left breast. Selected archived documentation. FINDINGS: LEFT BREAST: Within the left breast at the 10:00 axis, 7 cm from the nipple, there is a irregular hypoechoic shadowing mass measuring 6 x 4 x 5 mm, with surrounding distortion of the Elder's ligaments and internal color Doppler signal with feeding vessel noted. This finding is suspicious and ultrasound-guided biopsy is recommended. The left axilla was scanned, which demonstrated no suspicious adenopathy. Findings and recommendations were discussed with the patient in detail. MM/MM tomosynthesis diagnostic LT IMPRESSION: Suspicious spiculated hypoechoic mass left breast 10:00 axis, 7 cm from the nipple, for which ultrasound-guided biopsy is recommended. Findings and recommendations were discussed with the patient in detail. She is in agreement with the overall plan. OVERALL ASSESSMENT: Mammography: BI-RADS 4 - Suspicious finding Ultrasound: BI-RADS 4 - Suspicious finding RECOMMENDATION: Biopsy recommended
== END 2023-02-09 11:52 | disposition home or self-care (01) ==
LOC: HO.MAMMO 11:51
PROVIDERS: PCP Internal Medicine; Visit Provider Internal Medicine
DX: N64.89 Other specified disorders of breast (principal)
CPT/HCPCS: 76642; 77061; 77065

== ENCOUNTER 2023-02-13 08:18 | Outpatient (AMB) | payer MEDICARE, SELFPAY ==
[2023-02-13 08:20] VITALS: BP 164/65; PULSE 75; BMI 30.1
--- NOTE | 2023-02-13 08:20 | MHC.OFFVIS ---
Intake Vital Signs 02/13/23 08:20 Height 5 ft 3 in Weight 170 lb BMI 30.1 BP 164/65 H Blood Pressure Location Rt brachial Position Sitting Pulse 75 Intake Visit Reasons: LT breast US guided bx 10 o'clock lesion Intake Note: Patient scheduled for Lt breast US guided bx. Denies pain, lumps, itch breasts. No hx of breast ca. Recent mammo and US done on 02-09-23. Office Coordinator Required: No Accompanied by: daughter Katie Allergies sertraline [SERTRALINE] Allergy (Severe, Verified 02/13/23 08:27) DROPPED SODIUM LEVEL, BP increase Sodium drop aspirin [ASPIRIN] Allergy (Intermediate, Verified 02/13/23 08:27) RISK OF BLEDING NSAIDS (Non-Steroidal Anti-Inflamma Allergy (Unknown, Verified 02/13/23 08:27) risk of bleeding phenytoin [Dilantin] Allergy (Unknown, Verified 02/13/23 08:27) unknown HPI HPI Comments History of Present Illness Details Patient presents for evaluation status post screening mammogram ultrasound demonstrated suspicious lesion involving left breast. Patient has no breast issues or complaints herself. She denies any pain, discharge, or skin changes. She does not do self-breast exams. 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 Chart was reviewed and patient evaluated. No significant family history the that she knows of for breast cancer although her daughter was also present for evaluations at the were 2 cousins with breast cancer. [facility] Medical History (Updated 02/13/23 @ 08:32 by PHOENIX Bob) Seizures Stroke (~2000) Ash ash disease (~2000) Urinary frequency Allergic rhinitis Degenerative disc disease, cervical Neck pain Depression Anxiety Insomnia Epilepsy Obesity (BMI 30-39.9) Osteoarthritis Benign essential hypertension Pure hypercholesterolemia Rib pain on right side Left shoulder pain Recurrent dry cough Pain of right scapula Right-sided thoracic back pain Surgical History (Updated 02/13/23 @ 08:58 by Lucio Stout MD) Hx of colonoscopy History of kidney surgery Status post cervical disc replacement History of knee replacement procedure of right knee Hx of knee surgery Family History Father Chronic mental illness Mother Hypertension Other Mental health problem Social History Housing: House Alcohol intake: current Alcohol intake frequency: holidays/special occasions only Alcohol type: wine Patient Tobacco Use Status: Former Tobacco user Tobacco use type: Cigarette e-Cigarette/Vaping Use: Never Used Second Hand Smoke Exposure: Yes service: No Current occupational status: retired Cognitive needs: No Hearing needs: No Vision needs: No Physical Exam Vital Signs: Last Vital Signs Pulse 75 02/13/23 08:20 BP 164/65 H 02/13/23 08:20 BMI result Body Mass Index 30.1 Chest Other: Chest breath sounds bilaterally, bilateral breast exam demonstrates no obvious mass, discharge, adenopathy or skin changes. Negative periclavicular, cervical, axillary exam bilaterally. GI Other: Abdomen moderately corpulent. Midline scar. Soft, benign. No obvious organomegaly. Assessment & Plan Assessment & Plan (1) Breast calcification, left: Code(s): R92.1 - Mammographic calcification found on diagnostic imaging of breast Plan: Patient is to have ultrasound-guided left breast +biopsy this morning. She will see me in approximately weeks time. All questions were answered. Orders: Orders US breast ndl core biopsy LT Today R92.1 - Mammographic calcification found on diagnostic imaging of breast Coding Level of Care Code New Pt Level 4 (95006) Diagnoses Breast calcification, left R92.1
== END 2023-02-13 08:52 | disposition home or self-care (01) ==
PROVIDERS: PCP Internal Medicine; Visit Provider Surgery
DX: R92.1 Mammographic calcification found on diagnostic imaging of breast (principal)
CPT/HCPCS: 99204

== ENCOUNTER 2023-02-13 09:49 | Outpatient (REF) | payer MEDICARE, SELFPAY ==
--- NOTE | ~2023-02-13 | MM_ITS ---
PROCEDURE: US GUIDED BREAST BIOPSY, LEFT CLINICAL INFORMATION: Suspicious hypoechoic irregular vascular shadowing mass 10:00 axis left breast, 10 cm from the nipple, measuring approximately 6 x 4 x 5 cm. COMPARISON: Mammography and ultrasound dated 02/09/2023. PROCEDURAL DETAILS: The details of the procedure, as well as the risks, benefits, and alternatives to the procedure were explained to the patient in detail and all of her questions were answered, after which written informed consent was obtained. Site and side were confirmed. Prior to the procedure, sonography revealed the expected irregular hypoechoic shadowing vascular-type o'clock mass, 10 cm from the nipple. A time-out was performed, the lesion intended for biopsy was targeted, and the overlying skin was then marked, prepped and draped in the usual sterile fashion. Using sonographic guidance, sterile technique, and 1% lidocaine without epinephrine for local anesthesia, multiple core biopsies were obtained through the targeted area with a 14G spring loaded Achieve core biopsy device. There was real-time confirmation of appropriate needle passage. Sampling was documented. At the completion of tissue sampling, a single open coil-shaped metallic clip was deposited at the biopsy site. There was no evidence of immediate complication. SPECIMEN: An appropriate sample was obtained. DIGITAL POST-PROCEDURE MAMMOGRAPHY: Breast density: The tissue contains scattered areas of fibroglandular density. BI-RADS version 5, category B. There are no new mammographic findings demonstrated. The postprocedure 2-view direct digital mammogram reveals the biopsy clip has migrated approximately 1 cm posterior to the biopsied mass on both views. There is no evidence of hematoma or other complication. The patient tolerated the procedure well and, after assuring adequate hemostasis, was discharged in good condition after reviewing postbiopsy breast care instructions. Final pathology results are pending. MM/MM diagnostic mammo unilat LT IMPRESSION: 1. No immediate complication from ultrasound-guided percutaneous biopsy left breast. 2. Ultrasound was used to localize and guide marker clip placement. 3. The 2-view direct digital postprocedure mammogram reveals the open coil-shaped biopsy clip is located approximately 1 cm posterior to the biopsied spiculated mass. 4. Final pathology results are pending. A separate report with final recommendations will be issued once these results are made available.
[2023-02-13] MEDS: Sodium Bicarbonate 8.4% 50 MEQ/50 ML VIAL SUBCUT (11:05)
== END 2023-02-13 09:50 | disposition home or self-care (01) ==
LOC: HO.MAMMO 09:49
PROVIDERS: PCP Internal Medicine; Visit Provider Surgery
DX: C50.212 Malignant neoplasm of upper-inner quadrant of left female breast (principal)
CPT/HCPCS: 19083; 77062; 77065; 88305; 88342; 88360; A4648

== ENCOUNTER → 2023-02-13 10:00 | Outpatient (BNV) | payer MEDICARE, SELFPAY | PROVIDERS: PCP Internal Medicine; Visit Provider Radiology Diagnostic Radiology | DX: C50.212 Malignant neoplasm of upper-inner quadrant of left female breast (principal) | CPT/HCPCS: 19083; 77065 ==

== ENCOUNTER 2023-02-20 09:32 | Outpatient (AMB) | payer MEDICARE, SELFPAY ==
[2023-02-20 09:46] VITALS: BP 152/67; PULSE 72; BMI 29.8
--- NOTE | 2023-02-20 09:46 | MHC.OFFVIS ---
Intake Vital Signs 02/20/23 09:46 Height 5 ft 3 in Weight 168 lb BMI 29.8 BP 152/67 H Blood Pressure Location Lt brachial Position Sitting Pulse 72 Intake Visit Reasons: Follow Up LT breast US guided bx 10 o'clock lesion Intake Note: Patient here to discuss Lt breast us guided bx. Feels nervous and anxious. Reports bx site healing well. Marketing And Communications Officer Required: No Accompanied by: Daughter Allergies sertraline [SERTRALINE] Allergy (Severe, Verified 02/20/23 09:47) DROPPED SODIUM LEVEL, BP increase Sodium drop aspirin [ASPIRIN] Allergy (Intermediate, Verified 02/20/23 09:47) RISK OF BLEDING NSAIDS (Non-Steroidal Anti-Inflamma Allergy (Unknown, Verified 02/20/23 09:47) risk of bleeding phenytoin [Dilantin] Allergy (Unknown, Verified 02/20/23 09:47) unknown HPI HPI Comments History of Present Illness Details Patient presents with her daughter. We had a very lengthy discussion of the pathology results demonstrating invasive breast cancer. Therapeutic options were extensively reviewed ranging from conservative therapy which I do not recommend, lumpectomy with sentinel lymph node biopsy, or modified radical mastectomy. My current recommendation is the patient undergo lumpectomy with sentinel lymph node biopsy. Extensive discussion was had with risks, benefits, alternatives of this procedure which included but not limited to bleeding, infection, recurrence, numbness, pain, scarring, not diagnosis lymph nodes, and the patient wishes to proceed. All questions were answered. Discussion was also made should they wish to pursue a 2nd opinion which I think encouraged but patient would like to proceed with the above-mentioned procedure. [facility] Medical History Seizures Stroke (~2000) Ash ash disease (~2000) Urinary frequency Allergic rhinitis Degenerative disc disease, cervical Neck pain Depression Anxiety Insomnia Epilepsy Obesity (BMI 30-39.9) Osteoarthritis Benign essential hypertension Pure hypercholesterolemia Rib pain on right side Left shoulder pain Recurrent dry cough Pain of right scapula Right-sided thoracic back pain Surgical History Hx of colonoscopy History of kidney surgery Status post cervical disc replacement History of knee replacement procedure of right knee Hx of knee surgery Family History Father Chronic mental illness Mother Hypertension Other Mental health problem Social History Housing: House Alcohol intake: current Alcohol intake frequency: holidays/special occasions only Alcohol type: wine Patient Tobacco Use Status: Former Tobacco user Tobacco use type: Cigarette e-Cigarette/Vaping Use: Never Used Second Hand Smoke Exposure: Yes service: No Current occupational status: retired Cognitive needs: No Hearing needs: No Vision needs: No Physical Exam Vital Signs: Last Vital Signs Pulse 72 02/20/23 09:46 BP 152/67 H 02/20/23 09:46 BMI result Body Mass Index 29.8 Chest Other: Chest breath sounds bilaterally, HS 1 in 2 Breast exam status quo, benign. Biopsy site clean dry and intact. GI Other: Abdomen soft, benign Assessment & Plan Assessment & Plan (1) Breast calcification, left: Code(s): R92.1 - Mammographic calcification found on diagnostic imaging of breast Plan Current plan is to arrange for radiologic localizer placement to be undertaken and day prior to surgery to have sentinel lymph node injection. Tentatively surgery will be next . I spoke with nuclear medicine and they are going to accommodate the patient for day before injection. All questions were answered. Arrangements made for all this. Coding Level of Care Code Est Pt Level 5 (16066) Diagnoses Breast calcification, left R92.1
== END 2023-02-20 10:26 | disposition home or self-care (01) ==
PROVIDERS: PCP Internal Medicine; Visit Provider Surgery
DX: R92.1 Mammographic calcification found on diagnostic imaging of breast (principal)
CPT/HCPCS: 99214

== ENCOUNTER → 2023-02-20 09:32 | Outpatient (BNVA) | payer MEDICARE, SELFPAY | PROVIDERS: PCP Internal Medicine; Visit Provider Surgery | DX: R92.1 Mammographic calcification found on diagnostic imaging of breast (principal) | CPT/HCPCS: 99212 ==

== ENCOUNTER 2023-02-23 12:46 | Outpatient (REF) | payer MEDICARE, SELFPAY ==
--- NOTE | ~2023-02-23 | MM_ITS ---
EXAMINATION: MM MAMMOGRAM GUIDED RFID LOCALIZATION BREAST, LEFT CLINICAL INFORMATION: Invasive ductal and lobular carcinoma, grade 1, medial upper left breast. COMPARISON: 02/13/2023, 02/09/2023, 01/26/2023. TECHNIQUE NEEDLE LOC: Proper informed consent is obtained from the patient after discussion of the procedure, potential risks and complications, and alternatives including declining the procedure today. Patient was given an opportunity for questions. The patient appeared to understand. The patient consented to the procedure and signed the consent form. GUIDANCE: Digital mammography. APPROACH: Cranio-caudal. TARGET: Mass/clip. ANESTHESIA: carbonated lidocaine 1%: 5 mL. LOCALIZATION SYSTEM: -[employer] LOCallizer Wire-Free Guidance System with 12g needle applicator. -Length: 10 cm. -RADIOFREQUENCY TAG: ID # [id number] DERMATOTOMY: Not performed. RF Tag ID confirmed with LOCalizer Guidance System prior to placement. The skin is prepped and local anesthesia administered. The needle is positioned and RFID tag deployed. Final images demonstrate the LOCalizer RF tag to reside immediately adjacent to the spiculated mass, and slightly anterior to the coil clip. Pertinent images have been marked and labeled. The patient tolerated the procedure well and had no immediate complications. Dressing placed and home instructions reviewed. MM/MM needle loc LT IMPRESSION: -Status post successful left breast RFID localization. -Please refer to marked and labeled images.
[2023-02-23] MEDS: Lidocaine HCl 1 % 20 ML VIAL 4 ML SUBCUT (14:31)
[2023-02-23] MEDS: Sodium Bicarbonate 8.4% 50 MEQ/50 ML VIAL SUBCUT (14:32)
== END 2023-02-23 12:47 | disposition home or self-care (01) ==
LOC: HO.MAMMO 12:46
PROVIDERS: PCP Internal Medicine; Visit Provider Surgery
DX: R92.1 Mammographic calcification found on diagnostic imaging of breast (principal)
CPT/HCPCS: 19281; C1819

== ENCOUNTER → 2023-03-01 12:53 | Outpatient (REF) | payer MEDICARE, SELFPAY ==
--- NOTE | ~2023-03-01 | NM_ITS ---
EXAMINATION: NM LYMPH SCINTIGRAPHY CLINICAL INFORMATION: Breast cancer COMPARISON: None available. TECHNIQUE: The subcutaneous soft tissues of the skin and nipple interface of the left breast at the 12, 3, 6 and 9:00 o'clock axis were injected with 4 separate aliquots of 0.125 mCi technetium 99 M labeled sulfur colloid for total dose of 0.5 mCi. Postprocedure imaging in the AP [place] and left lateral projection was performed. FINDINGS: There is adequate radiotracer uptake at the skin and nipple interface. Blossom node activity is seen in the left axilla. NM/NM sentinel node w imaging IMPRESSION: Positive sentinel node activity in the left axilla.
== END ==
LOC: HO.NUCMED 12:53
PROVIDERS: PCP Internal Medicine; Visit Provider Surgery
DX: R92.1 Mammographic calcification found on diagnostic imaging of breast (principal)
CPT/HCPCS: 78195; A9541

== ENCOUNTER 2023-03-02 06:05 | Day surgery (SDC) | payer MEDICARE, SELFPAY ==
[2023-02-28 07:31] VITALS: BMI 29.8
--- NOTE | 2023-03-01 09:25 | MHC.SHP ---
Pre-Procedural Eval Section A Date of Service: 03/01/23 The patient is an INPATIENT: No Changes since office visit: No Cold of Flu in the past 2 weeks, No New Medical Problems, No Changes in Medication and No Patient answered all questions The History & Physical has been completed within 30 days and I have reviewed it.: Yes Section B Chief Complaint: Mammographic calcification found on diagnostic denisse Allergies: Allergies Allergy/AdvReac Type Severity Reaction Status Date / Time sertraline [SERTRALINE] Allergy Severe DROPPED Verified 02/20/23 09:47 SODIUM LEVEL, BP increase Sodium drop aspirin [ASPIRIN] Allergy Intermediate RISK OF Verified 02/20/23 09:47 BLEDING NSAIDS (Non-Steroidal Allergy Unknown risk of Verified 02/20/23 09:47 Anti-Inflamma bleeding phenytoin [Dilantin] Allergy Unknown unknown Verified 02/20/23 09:47 Plan I have reviewed the history and physical and performed a pertinent physical examination on my patient. No changes have occurred unless specified. Time Spent With Patient Time: Total time managing care of this patient today ____ minutes.
[2023-03-02] VITALS (9 sets, daily range): BP systolic 160–181; BP diastolic 59–97; PULSE 63–68; RESP 14–18; TEMP 36.2–36.6; O2SAT 95–100
--- NOTE | ~2023-03-02 | MM_ITS ---
EXAMINATION: RFID LOCALIZATION SPECIMEN FROM THE LEFT BREAST CLINICAL INFORMATION: Left breast lumpectomy for invasive carcinoma with ductal and lobular features. COMPARISON: 02/23/2023. TECHNIQUE: Single view of the surgical specimen was obtained. FINDINGS: The radiograph of the excised surgical specimen shows that the RFID chip, and open coil biopsy clip as well as the spiculated mass are contained centrally within the specimen. There are a few peripheral calcifications also obtained. MM/MM surgical specimen IMPRESSION: Satisfactory excision of the mass, RFID chip, and biopsy clip. These findings were communicated to the surgeon in the OR at the time of specimen radiography.
[2023-03-02] MEDS: Lactated Ringers 1,000 ML 50 ML IVCONT (06:40)
--- NOTE | 2023-03-02 07:31 | P.CONAN_ITS ---
[facility] Active Problems Active Problems: All Active Problems (Updated 03/02/23 @ 06:37 by Elda Dunn RN) Breast calcification, left (Acute) Excessive cerumen in both ear canals (Acute) Overactive bladder (Acute) Elevated TSH (Acute) Impaired fasting blood sugar (Acute) Medicare annual wellness visit, subsequent (Acute) Rib pain on right side (Acute) Osteoarthritis of left knee (Acute) Encounter for annual wellness exam in Medicare patient (Acute) Torticollis, acute (Acute) Urinary frequency (Acute) Allergic rhinitis (Acute) Degenerative disc disease, cervical (Acute) Neck pain (Acute) Depression (Acute) Anxiety (Acute) Insomnia (Acute) Epilepsy (Acute) Obesity (BMI 30-39.9) (Acute) Osteoarthritis (Acute) Benign essential hypertension (Acute) Pure hypercholesterolemia (Acute) Rib pain on right side (Acute) Left shoulder pain (Acute) Recurrent dry cough (Acute) Pain of right scapula (Acute) Right-sided thoracic back pain (Acute) Past Medical History Medical History (Updated 03/02/23 @ 06:37 by Elda Dunn RN) Cataract Seizures Stroke (~2000) Ash ash disease (~2000) Urinary frequency Allergic rhinitis Degenerative disc disease, cervical Neck pain Depression Anxiety Insomnia Epilepsy Obesity (BMI 30-39.9) Osteoarthritis Benign essential hypertension Pure hypercholesterolemia Rib pain on right side Left shoulder pain Recurrent dry cough Pain of right scapula Right-sided thoracic back pain Family History Family History Father Chronic mental illness Mother Hypertension Other Mental health problem Family history of problems with anesthesia: No Surgical History Surgical History Hx of colonoscopy History of kidney surgery Status post cervical disc replacement History of knee replacement procedure of right knee Hx of knee surgery History of Problems with Anesthesia: No Social History Social History Housing: House Alcohol intake: current Alcohol intake frequency: does not drink Alcohol type: wine Patient Tobacco Use Status: Former Tobacco user Tobacco use type: Cigarette e-Cigarette/Vaping Use: Never Used Second Hand Smoke Exposure: Yes Are you DNR?: No Advance Directives: No Advance Directives Information Provided: No Advance Directives on File: No service: No Current occupational status: retired Cognitive needs: No Hearing needs: No Vision needs: No Meds Allergies Allergy/AdvReac Type Severity Reaction Status Date / Time sertraline [SERTRALINE] Allergy Severe DROPPED Verified 02/20/23 09:47 SODIUM LEVEL, BP increase Sodium drop aspirin [ASPIRIN] Allergy Intermediate RISK OF Verified 02/20/23 09:47 BLEDING NSAIDS (Non-Steroidal Allergy Unknown risk of Verified 02/20/23 09:47 Anti-Inflamma bleeding phenytoin [Dilantin] Allergy Unknown unknown Verified 02/20/23 09:47 Active Medications: Current Medications Lactated Ringer's (Lr) 1,000 mls @ 50 mls/hr IVCONT .Q20H ALANA Last Admin: 03/02/23 06:40 Dose: 50 mls/hr Home Medications Medication Instructions Recorded Confirmed Last Taken Type trazodone 100 mg tablet 150 mg PO BEDTIME 06/24/20 12/20/22 Unknown History Exam Exam Date and Time: March 02, 2023 0731 Height,Weight and Vital Signs: Height 5 ft 3 in Weight 76.204 kg Last Vital Signs Temp 98 F 03/02/23 06:23 Pulse 65 03/02/23 06:23 Resp 18 03/02/23 06:23 BP 160/84 H 03/02/23 06:23 Pulse Ox 97 03/02/23 06:23 O2 Del Method Room Air 03/02/23 06:23 Airway Mallampati Class: II TM Dist: >3cm Neck ROM: Full Denture: Upper Assessment and Plan Assessment Anesthesia Assessment: Anesthesia Plan Discussed and Chart Reviewed Final Anesthetic Review Family History of Problems with Anesthesia: No History of Problems with Anesthesia: No NPO: Yes ASA Class: III Final Preanesthetic Review: No Changes in Pt Med Stat, Meds/Allgs Chart Reviewed, Consent Obtained/Reviewed and Anes Risks/Benef Reviewed Patient Risk: Intermediate Procedure Risk: Low Anesthetic Plan Anesthetic Plan: GA Disposition: Standard PACU
--- NOTE | 2023-03-02 10:08 | W.PM.OPN ---
Operative Note Operative Note Date of Service: 03/02/23 Narrative: Preoperative diagnosis: [] Left breast cancer Postop diagnosis: [] Same Procedure [] left lumpectomy/quadrantectomy, sentinel lymph node biopsy Surgeon: Angle Senior Marketing Coordinator: [] Nehemiah Type of Anesthesia: [] General Indication for surgery: [] Left upper inner quadrant breast cancer Amma lymph nodes were identified with both methylene blue dye and isotope marker. Generous circumferential breast quadrantectomy was performed using localizer device. Specimen confirmed radiographically post excision. Findings: [] Patient was brought to the operating room, placed on operative table supine position, after adequate level of general anesthesia was induced, using alcohol prep, periareolar methylene blue subcutaneous injection was performed and area massaged. Preop identification with localizer device was used in the area in question was marked, in the left upper quadrant. Next the left breast, chest and axilla and upper arm were prepped and draped in usual sterile fashion. Using a curvilinear incision the upper outer quadrant just outside the areola, this carried down through skin, subcutaneous tissue, were superior and inferior skin flaps were developed and using localizer device, a very generous circumferential lumpectomy was performed and carried down to the pectoralis major. Dissection was completed and specimen tagged and immediately photographed/radiographed which demonstrated confirmation of specimen with localizer marker in specimen. Specimen was then sent to pathology for permanent evaluation. The lumpectomy wound Was irrigated, secured hemostasis, and closed using interrupted inverted dermal 3-0 Vicryl sutures followed by Steri-Strips. Next the axilla was approached where the isotope probe identified a ?hot ?area and through oblique small incision skin incision along the inferior axillary skin fold, carried down through skin, and subcutaneous tissue, were an in vivo (followed by ex vivo) [place] counter measured the sentinel lymph node hot spot value that was greater than 700 units of a collection of sentinel lymph nodes was uneventfully dissected out using combination of Bovie and blunt dissection. Postprocedure probing of the wound demonstrated no residual isotoping. Wound was irrigated, secured hemostasis, and closed using interrupted inverted dermal 3-0 Vicryl sutures followed by Steri-Strips. Sterile dressings were applied to both incisions. Each wound was infiltrated 0.5% Marcaine at completion. Sponge, needle, instrument counts reported correct. Patient tolerated the procedure well and emerged anesthesia and stable condition. EBL minimal
== END 2023-03-02 11:52 | disposition home or self-care (01) ==
PROVIDERS: PCP Internal Medicine; Visit Provider Surgery
PROC: (CPT 19301; principal; 2023-03-02 07:30)
PROC: (CPT 19301; 2023-03-02 07:30)
DX: C50.212 Malignant neoplasm of upper-inner quadrant of left female breast (principal); Z17.0 Estrogen receptor positive status [ER+]; I67.5 Moyamoya disease; I10 Essential (primary) hypertension; G40.909 Epilepsy, unspecified, not intractable, without status epilepticus; E78.00 Pure hypercholesterolemia, unspecified; Z88.8 Allergy status to other drugs, medicaments and biological substances; Z87.891 Personal history of nicotine dependence; Z86.73 Personal history of transient ischemic attack (TIA), and cerebral infarction without residual deficits; Z98.890 Other specified postprocedural states; Z79.899 Other long term (current) drug therapy
CPT/HCPCS: 19301; 38525; 88307; 88329; 88342; J0690; J2795; J3010; Q9968

== ENCOUNTER → 2023-03-02 06:05 | Outpatient (BNV) | payer MEDICARE, SELFPAY | PROVIDERS: PCP Internal Medicine; Visit Provider Surgery | DX: C50.212 Malignant neoplasm of upper-inner quadrant of left female breast (principal) | CPT/HCPCS: 19301; 38525; 38900 ==

== ENCOUNTER 2023-03-08 13:01 | Outpatient (AMB) | payer MEDICARE, SELFPAY ==
[2023-03-08 13:09] VITALS: BP 134/63; PULSE 80
--- NOTE | 2023-03-08 13:09 | MHC.OFFVIS ---
Intake Vital Signs 03/08/23 13:09 Weight 169 lb BP 134/63 Blood Pressure Location Lt brachial Position Sitting Pulse 80 Intake Visit Reasons: S/P Lt. breast lumpectomy, localizer, SN bx Intake Note: Patient here s/o lt breast lumpectomy. Patient c/o pain and soreness. Still taking rx pain meds. Denies oozing, redness, itch. Reports incision site healing well. Metal Bumper Required: No Accompanied by: Daughter Allergies sertraline [SERTRALINE] Allergy (Severe, Verified 03/08/23 13:11) DROPPED SODIUM LEVEL, BP increase Sodium drop aspirin [ASPIRIN] Allergy (Intermediate, Verified 03/08/23 13:11) RISK OF BLEDING NSAIDS (Non-Steroidal Anti-Inflamma Allergy (Unknown, Verified 03/08/23 13:11) risk of bleeding phenytoin [Dilantin] Allergy (Unknown, Verified 03/08/23 13:11) unknown HPI HPI Comments History of Present Illness Details Patient presents with her daughter for follow-up. She has minimal incisional discomfort. She is otherwise doing relatively well. Pathology results reviewed and demonstrated a T1 lesion with negative lymph nodes. [facility] Medical History Cataract Seizures Stroke (~2000) Ash ash disease (~2000) Urinary frequency Allergic rhinitis Degenerative disc disease, cervical Neck pain Depression Anxiety Insomnia Epilepsy Obesity (BMI 30-39.9) Osteoarthritis Benign essential hypertension Pure hypercholesterolemia Rib pain on right side Left shoulder pain Recurrent dry cough Pain of right scapula Right-sided thoracic back pain Surgical History Hx of colonoscopy History of kidney surgery Status post cervical disc replacement History of knee replacement procedure of right knee Hx of knee surgery Family History Father Chronic mental illness Mother Hypertension Other Mental health problem Social History Housing: House Alcohol intake: current Alcohol intake frequency: does not drink Alcohol type: wine Patient Tobacco Use Status: Former Tobacco user Tobacco use type: Cigarette e-Cigarette/Vaping Use: Never Used Second Hand Smoke Exposure: Yes service: No Current occupational status: retired Cognitive needs: No Hearing needs: No Vision needs: No Physical Exam Vital Signs: Last Vital Signs Pulse 80 03/08/23 13:09 BP 134/63 03/08/23 13:09 Chest Other: Breast and axillary wounds are healing very well. Assessment & Plan Assessment & Plan (1) Breast cancer, left: Code(s): C50.912 - Malignant neoplasm of unspecified site of left female breast Plan Patient and daughter would like the referral for Oncology and Radiation Oncology to be done at [facility]. Arrangements will be made for this. In The meantime, patient will see me approximately 3 weeks time for follow-up. She will need at least 4-6 weeks for complete healing of her incisions/wounds before commencing radiation therapy. All questions were answered. Patient will see me as directed or PE Coding Level of Care Code Global (80514) Diagnoses Breast cancer, left C50.912
== END 2023-03-08 13:38 | disposition home or self-care (01) ==
PROVIDERS: PCP Internal Medicine; Visit Provider Surgery
DX: C50.912 Malignant neoplasm of unspecified site of left female breast (principal)
CPT/HCPCS: 99024

== ENCOUNTER → 2023-03-08 13:01 | Outpatient (BNVA) | payer MEDICARE, SELFPAY | PROVIDERS: PCP Internal Medicine; Visit Provider Surgery ==

== ENCOUNTER 2023-03-28 09:09 | Outpatient (AMB) | payer MEDICARE, SELFPAY ==
[2023-03-28 09:38] VITALS: BP 139/64; PULSE 77
--- NOTE | 2023-03-28 09:38 | A.OFFVIS_ITS ---
Intake Vital Signs 03/28/23 09:38 Weight 167 lb BP 139/64 Blood Pressure Location Rt brachial Position Sitting Pulse 77 Intake Visit Reasons: S/P Lt. breast lumpectomy, localizer, SN bx Intake Note: Patient here s/p lt breast lumpectomy. Reports no changes with medical hx. Has appt with [facility] HEM/ONC Dr. Fair in March. Make Ready Worker Required: No Accompanied by: Daughter Allergies sertraline [SERTRALINE] Allergy (Severe, Verified 03/28/23 09:41) DROPPED SODIUM LEVEL, BP increase Sodium drop aspirin [ASPIRIN] Allergy (Intermediate, Verified 03/28/23 09:41) RISK OF BLEDING NSAIDS (Non-Steroidal Anti-Inflamma Allergy (Unknown, Verified 03/28/23 09:41) risk of bleeding phenytoin [Dilantin] Allergy (Unknown, Verified 03/28/23 09:41) unknown HPI HPI Comments History of Present Illness Details Patient presents with her daughter. She is convalescing quite well. She has occasional incisional discomfort which is improving. Genetic testing was reviewed and was all negative. [facility] Medical History Cataract Seizures Stroke (~2000) Ash ash disease (~2000) Urinary frequency Allergic rhinitis Degenerative disc disease, cervical Neck pain Depression Anxiety Insomnia Epilepsy Obesity (BMI 30-39.9) Osteoarthritis Benign essential hypertension Pure hypercholesterolemia Rib pain on right side Left shoulder pain Recurrent dry cough Pain of right scapula Right-sided thoracic back pain Surgical History Hx of colonoscopy History of kidney surgery Status post cervical disc replacement History of knee replacement procedure of right knee Hx of knee surgery Family History Father Chronic mental illness Mother Hypertension Other Mental health problem Social History Housing: House Alcohol intake: current Alcohol intake frequency: does not drink Alcohol type: wine Patient Tobacco Use Status: Former Tobacco user Tobacco use type: Cigarette e-Cigarette/Vaping Use: Never Used Second Hand Smoke Exposure: Yes service: No Current occupational status: retired Cognitive needs: No Hearing needs: No Vision needs: No Physical Exam Vital Signs: Last Vital Signs Pulse 77 03/28/23 09:38 BP 139/64 03/28/23 09:38 Chest Other: Breast and axillary wounds are well healed. Assessment & Plan Assessment & Plan (1) Breast cancer, left: Code(s): C50.912 - Malignant neoplasm of unspecified site of left female breast Plan Patient is scheduled to see [facility] oncology and radiation. Records will be sent. Patient will see vt status post completion of radiation therapy for a post radiation six-month mammogram and exam and then entered regular surveillance. All questions were answered. Coding Level of Care Code Global (58266) Diagnoses Breast cancer, left C50.912
== END 2023-03-28 09:59 | disposition home or self-care (01) ==
PROVIDERS: PCP Internal Medicine; Visit Provider Surgery
DX: C50.912 Malignant neoplasm of unspecified site of left female breast (principal)
CPT/HCPCS: 99024

== ENCOUNTER → 2023-03-28 09:09 | Outpatient (BNVA) | payer MEDICARE, SELFPAY | PROVIDERS: PCP Internal Medicine; Visit Provider Surgery ==

== ENCOUNTER 2023-04-25 06:27 | Outpatient (REF) | payer MEDICARE, SELFPAY ==
[2023-04-25 11:14] LABS: Appearance Urine Cloudy; Color Urine Yellow; Glucose Urine UA Negative (Negative); Leukocyte Esterase Urine Negative (Negative); Nitrite Urine Negative (Negative); PH 5.5 (5.0-9.0); Specific Gravity - Urine 1.015 (1.005-1.025); Urine Blood Negative (Negative); Urine Ketones Negative (Negative); Urine Protein Negative (Neg-Trace)
[2023-04-25 11:17] LABS: MANUAL DIFF FLAG NO
[2023-04-25 11:25] LABS: Basophils Percent Auto 0.5 % (0-2); Eosinophils Absolute Auto 0.1 X10*3/uL (0.0-0.4); Eosinophils Percent Auto 1.5 % (0-4); Hematocrit 34.9 % (37.0-47.0); Hemoglobin 11.1 g/dl (12.0-16.0); Imm Gran Abs Auto 0.03 X10*3/uL (0.00-0.03); Imm Gran Pct Auto 0.4 % (0.0-0.4); Lymphocytes Absolute Auto 1.8 X10*3/uL (1.2-4.9); Lymphocytes Percent Auto 24.1 % (20-40); Mean Corpuscular HGB Conc 31.8 g/dl (31.0-35.0); Mean Corpuscular Hemoglobin 30.1 pg (27.0-33.0); Mean Corpuscular Volume 94.6 fL (80.0-98.0); Mean Platelet Volume 10.4 fL (9.4-12.3); Monocytes Absolute Auto 0.5 X10*3/uL (0.1-1.2); Monocytes Percent Auto 7.1 % (2-11); Neutrophils Absolute Auto 4.9 x10*3/uL (2.0-8.3); Neutrophils Percent Auto 66.4 % (45-73); Platelet Count 264 X10*3/uL (160-400); Red Blood Count 3.69 X10*6/uL (4.20-5.50); Red Cell Distribution Width 13.3 % (11.0-16.0); White Blood Count 7.4 X10*3/uL (4.8-10.8)
[2023-04-25 12:00] LABS: Alanine Aminotransferase 15 U/L (0-31); Alkaline Phosphatase 107 U/L (39-117); Anion Gap 11 (12-20); Aspartate Amino Transferase 17 U/L (5-31); Bilirubin Total 0.3 mg/dL (0.0-1.0); Blood Urea Nitrogen 18 mg/dL (9-16); Calcium 9.3 mg/dL (8.4-10.2); Carbon Dioxide 25 mmol/L (22-29); Chloride 109 mmol/L (96-108); Cholesterol 177 mg/dL (<200); Estimated Glomerular Filt Rate > 60; Glucose Fasting 104 mg/dL (60-99); HDL Cholesterol 45 mg/dL (>40); LDL Cholesterol Calculated 104 mg/dL (<100); Sodium 141 mmol/L (135-145); TSH reflex Free T4 4.24 uIU/mL (0.32-4.0); Total Protein 7.1 g/dL (6.5-8.0); Triglycerides 142 mg/dL (<150); Vitamin D 25-OH Total 50.5 ng/mL (>30)
[2023-04-25 12:35] LABS: Free T4 (Free Thyroxine) 0.66 ng/dL (0.71-1.85)
== END 2023-04-25 06:28 | disposition home or self-care (01) ==
LOC: HO.HMGCLDS 06:27
PROVIDERS: PCP Internal Medicine; Visit Provider Internal Medicine
DX: E78.00 Pure hypercholesterolemia, unspecified (principal); R30.0 Dysuria; E55.9 Vitamin D deficiency, unspecified; I10 Essential (primary) hypertension
CPT/HCPCS: 36415; 80053; 80061; 81003; 82306; 84439; 84443; 85025

== ENCOUNTER 2023-04-26 10:55 | Outpatient (AMB) | payer MEDICARE, SELFPAY ==
[2023-04-26 10:58] VITALS: BP 140/82; PULSE 76; O2SAT 97; BMI 29.2
--- NOTE | 2023-04-26 10:58 | MHC.PC.OV ---
Vital Signs 04/26/23 10:58 Height 5 ft 3 in Weight 165 lb 2 oz BMI 29.2 BP 140/82 H Blood Pressure Location Lt brachial Position Sitting Pulse 76 Pulse Source Pulse Oximeter Pulse Oximetry (%) 97 Oxygen Delivery Method Room Air Intake Visit Reasons: 4mon f/u Manager Enterprise Required: No Accompanied by: Self / Same As Patient Allergies sertraline [SERTRALINE] Allergy (Severe, Verified 04/26/23 11:41) DROPPED SODIUM LEVEL, BP increase Sodium drop aspirin [ASPIRIN] Allergy (Intermediate, Verified 04/26/23 11:41) RISK OF BLEDING NSAIDS (Non-Steroidal Anti-Inflamma Allergy (Unknown, Verified 04/26/23 11:41) risk of bleeding phenytoin [Dilantin] Allergy (Unknown, Verified 04/26/23 11:41) unknown Medication List - Last Reconciled 04/26/23 by Kelvin Pruett MD amlodipine 5 mg PO DAILY anastrozole 1 mg PO DAILY atenolol 50 mg PO DAILY atorvastatin 80 mg PO DAILY fluticasone propionate 50 mcg/actuation 2 sprays intranasal DAILY PRN irbesartan 300 mg PO DAILY lidocaine HCl 4% (Aspercreme (lidocaine HCl)) 1 appl topical BID lorazepam 0.5 mg PO BID PRN 30 days mirtazapine 15 mg PO BEDTIME 90 days Myrbetriq ER (mirabegron) 25 mg PO DAILY NS oxcarbazepine TAKE 1 TABLET BY MOUTH DAILY IN THE MORNING AND 2 TABLETS BY MOUTH DAILY IN THE EVENING oxycodone 5 mg PO Q6H PRN 28 days oxycodone-acetaminophen 5-325 mg 1 tab PO Q4-6H PRN trazodone 150 mg PO BEDTIME Tobacco use date assessed: 04/26/23 Fall risk assessment: No Falls in past year Dental Screening Dental Screen Date: 04/26/23 Did you have a dental visit in the last 12 months?: No Did you have a dental problem in the last 6 months where you did not have access to dental care?: No Was dental information given to patient?: No HPI 4mon f/u HPI Details Patient comes in today for her follow up visit States that she feels okay She denies any headaches or dizziness Denies any chest pains, no increased SOB No nausea/vomiting, no abdominal pain States that she has been experiencing increasing constipation often lately and would like to get something to help relieve her recurrent bloating and discomfort due to increasing constipation States that her neck pain (chronic) and joint pains remain adequately controlled on her current Rx She was also recently diagnosed with left breast cancer and has since undergone lumpectomy She was referred to and seen by oncology at [facility] and has been started on Anastrozole 1 mg QD She is scheduled to see radiation oncology at [facility] in a couple of weeks to discuss need for adjuvant radiation Tx or not Had her follow up labs done yesterday - to discuss her results [facility] Medical History (Updated 05/01/23 @ 04:12 by Kelvin Pruett MD) Constipation Acquired hypothyroidism Overweight (BMI 25.0-29.9) Cataract Seizures Stroke (~2000) Ash ash disease (~2000) Urinary frequency Allergic rhinitis Degenerative disc disease, cervical Neck pain Depression Anxiety Insomnia Epilepsy Obesity (BMI 30-39.9) Osteoarthritis Benign essential hypertension Pure hypercholesterolemia Rib pain on right side Left shoulder pain Recurrent dry cough Pain of right scapula Right-sided thoracic back pain Surgical History (Updated 05/01/23 @ 04:16 by Kelvin Pruett MD) Hx of colonoscopy History of kidney surgery Status post cervical disc replacement History of knee replacement procedure of right knee Hx of knee surgery Family History Father Chronic mental illness Mother Hypertension Other Mental health problem Social History Housing: House Alcohol intake: current Alcohol intake frequency: does not drink Alcohol type: wine Patient Tobacco Use Status: Former Tobacco user Tobacco use type: Cigarette e-Cigarette/Vaping Use: Never Used Second Hand Smoke Exposure: Yes service: No Current occupational status: retired Cognitive needs: No Hearing needs: No Vision needs: No Questionnaire PHQ-9 Over the last 2 weeks, how often have you been bothered by any of the following problems? 1. Little interest or pleasure in doing things: not at all 2. Feeling down, depressed, or hopeless: not at all 3. Trouble falling or staying asleep, or sleeping too much: not at all 4. Feeling tired or having little energy: not at all 5. Poor appetite or overeating: not at all 6. Feeling bad about yourself - or that you are a failure or have let yourself or your family down: not at all 7. Trouble concentrating on things, such as reading the newspaper or watching television: not at all 8. Moving or speaking so slowly that other people could have noticed. Or the opposite - being so fidgety or restless that you have been moving around a lot more than usual: not at all 9. Thoughts that you would be better off or of hurting yourself in some way: not at all Total score: 0 Depression Screening Interpretation: Negative Depression Screening Done: Yes 88370 - PHQ-9 Billing: Yes Source: Developed by Drs. Michoacano Hanson, Dayanna Car, Javier Spain and colleagues, with an educational zach from [employer]. Thrive Questionnaire Date Thrive assessed: 04/26/23 I am a: Patient What is your living situation today?: I have a steady place to live Within the past 12 months, did the food you bought not last and you didn't have the money to get more?: Never true Within the past 12 months, did you worry whether your food would run out before you got money to buy more?: Never true Do you have trouble paying for medicines?: No Do you have trouble getting transportation to medical appointments?: No Do you have trouble paying your heating and electricity bill?: No Do you have trouble taking care of your child, family member or friend?: No Do you have trouble with day-to-day activities such as bathing, preparing meals, shopping, managing finances, etc.?: No Are you currently unemployed and looking for a job?: No Are you interested in more education?: No Please select the resources that you would like help with: None Currently or been in a relationship where the following occur: no concerns reported AUDIT C Alcohol Use Questionnaire (AUDIT-C) 1. How often do you have a drink containing alcohol?: Never 3. How often do you have six or more drinks on one occasion?: Never Total Score: 0 Score Reviewed/Action Taken: Yes FEI-7 AMB Questionnaire FEI-7 Date FEI - 7 assessed: 04/26/23 Feeling nervous, anxious, or on edge: 0 = Not at all Not being able to stop or control worryin = Not at all Worrying too much about different things: 0 = Not at all Trouble relaxin = Not at all Being so restless that it is hard to sit still: 0 = Not at all Becoming easily annoyed or irritable: 0 = Not at all Feeling afraid as if something awful might happen: 0 = Not at all Total FEI-7 score (0-4 normal; 5-9 mild; 10-14 moderate; 15-21 severe): 0 Source: Developed by Drs. Michoacano Hanson, Dayanna Car, Javier Spain and colleagues, with an educational zach from [employer]. Review of Systems Const Denies chills, Reports fatigue, Denies fever(s) and Denies headache(s) ENT Denies dysphagia, Denies dizziness, Denies otalgia, Denies headache(s), Reports neck pain (chronic), Denies odynophagia, Denies sinus pain and Denies sore throat Card Denies chest pain, Denies palpitations and Denies dyspnea Resp Denies cough and Denies dyspnea GI Denies abdominal pain, Denies constipation, Denies dysphagia, Denies heartburn, Denies diarrhea, Denies nausea, Denies odynophagia and Denies vomiting Denies difficulty voiding, Denies nocturia, Denies dysuria and Denies urinary urgency Musc Reports back pain, Reports arthralgias (left knee ) and Reports neck pain (chronic) Skin/Breast Denies rash Neuro Denies dizziness and Denies headache(s) Endo Reports fatigue and Denies palpitations Physical exam (Primary Care) Vital Signs: Last Vital Signs Pulse 76 04/26/23 10:58 BP 140/82 H 04/26/23 10:58 Pulse Ox 97 04/26/23 10:58 Oxygen Delivery Method Room Air 04/26/23 10:58 BMI result Body Mass Index 29.2 Tobacco/Smoking Status: Tobacco use Status Tobacco use date assessed 04/26/23 04/26/23 11:04 Patient Tobacco Use Status Former Tobacco user 04/26/23 11:00 Tobacco use type Cigarette 04/26/23 11:00 e-Cigarette/Vaping Use Never Used 04/26/23 11:00 PHQ-9: PHQ-9 Score PHQ-9: Total score 0 04/26/23 11:48 Depression Screening Interpretation: Negative Thrive Assessment: Date of Thrive Assessment Date Thrive assessed 04/26/23 04/26/23 11:04 Currently or been in a relationship where the following occur: no concerns reported Const General: no acute distress and alert HENMT Ears: TM's normal bilaterally and EAC's normal Throat: Yes posterior oropharynx normal and Yes tonsils normal (no TP congestion noted) Neck Neck: Yes no lymphadenopathy and Yes tender Resp Auscultation: clear to auscultation bilaterally, no rales and no wheezes Cardio Rate: regular rate Rhythm: regular rhythm Heart sounds: no murmurs GI Palpation (GI): Soft to palpation and nontender Auscultation: normal bowel sounds General: Yes no CVA tenderness Back/Spine/Pelvis Back: no CVA tenderness Cervical Spine: Cervical spine tenderness Thoracic/Lumbar Spine: lumbar spinal tenderness Skin Rashes: no rashes Extrem General: Yes no clubbing, cyanosis or edema Left lower extremity: knee Details: tenderness and crepitus; no swelling Results Reviewed Results Reviewed: Laboratory Tests 04/25/23 06:43 WBC 7.4 Hgb 11.1 L Hct 34.9 L Plt Count 264 Sodium 141 Potassium 4.0 Creatinine 0.87 Estimated GFR > 60 Fasting Glucose 104 H Calcium 9.3 AST 17 ALT 15 Triglycerides 142 Cholesterol 177 LDL Cholesterol, Calc 104 H HDL Cholesterol 45 25-OH Vitamin D Total 50.5 TSH 4.24 H Free T4 0.66 L Ur Specific [place] 1.015 Urine Protein Negative Urine Glucose (UA) Negative Urine Blood Negative Assessment and Plan Assessment & Plan (1) Benign essential hypertension: Code(s): I10 - Essential (primary) hypertension Plan: Reinforced low-sodium diet - goal is systolic BP of at least 140 to 150 mm or less Continue Atenolol 50 mg QD, Amlodipine 5 mg QD and Irbesartan 300 mg QD (2) Pure hypercholesterolemia: Code(s): E78.00 - Pure hypercholesterolemia, unspecified Plan: Results of her labs done yesterday reviewed and discussed with patient Reinforced low-cholesterol diet Continue Atorvastatin 80 mg QD Will recheck her labs and fasting lipids in 3 months for follow-up (3) Degenerative disc disease, cervical: Comment: S/P anterior fusion of C5-C7 in 2011 Code(s): M50.30 - Other cervical disc degeneration, unspecified cervical region Plan: States that her neck pain has been mostly manageable lately Cervical spine x-rays done in September 2020 revealed stable post-surgical changes and some mild degenerative changes in the cervical spine Will consider referral again to physical therapy if her neck pain flares up (4) Osteoarthritis: Comment: Involving multiple joints, including both shoulders and the right knee Code(s): M19.90 - Unspecified osteoarthritis, unspecified site Qualifiers: Osteoarthritis location: multiple joints Osteoarthritis type: primary Qualified Code(s): M89.49 - Other hypertrophic osteoarthropathy, multiple sites Plan: Shoulder x-rays in May 2020 revealed (+) degenerative changes S/P right knee arthroplasty in 2016 with significant improvement of her symptoms; has been experiencing increasing left knee pain for the past couple of years Had injections into her left knee a couple of years ago without any significant relief and states that she was seriously considering knee replacement surgery on her left knee for a while but her knee pain appears to have subsided lately Continue Oxycodone 5 mg every 6 hours as needed for severe pain; was also taking some Celecoxib 200 mg QD PRN for a while but she has not taken it in the past few months Used to follow up with orthopedics but has not been seen in a while - she was referred back to orthopedics for her recently increasing left knee pain back in November 2022 but placed her orthopedics appt on hold when she was diagnosed with breast cancer a couple of months ago (5) Breast cancer, left: Comment: 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; stage I ([id number]), grade 1, ER positive, SD positive, HER2 negative - diagnosed in January 2023 Code(s): C50.912 - Malignant neoplasm of unspecified site of left female breast Qualifiers: Breast location: unspecified site of breast Estrogen receptor status: positive Patient sex: female Qualified Code(s): C50.912 - Malignant neoplasm of unspecified site of left female breast; Z17.0 - Estrogen receptor positive status [ER+] Plan: Was diagnosed in January 2023 with invasive lobular carcinoma of the left breast after her routine mammogram revealed (+) calcifications and Bx done came back positive for breast cancer She has since undergone lumpectomy with negative margins She was referred to hematology/oncology and radiation oncology at [facility] (per request) and was seen by oncology a few weeks ago and started on Letrozole 1 mg QD, which should be continued for at least 5 years She will also be seeing radiation oncology at [facility] in 1 to 2 weeks for consultation as to whether she will require radiation therapy or not She will need to continue with annual mammography as well Follow up with oncology & radiation oncology as scheduled (6) Acquired hypothyroidism: Code(s): E03.9 - Hypothyroidism, unspecified Plan: Patient is advised that her TFTs are now indicating that she has an underactive thyroid and should start taking thyroid hormone supplements Will start her on Levothyroxine 25 mcg QD - instructions provided on the proper way of taking her thyroid hormone supplement Will recheck her TFTs in 3 months for follow up (7) Epilepsy: Code(s): G40.909 - Epilepsy, unspecified, not intractable, without status epilepticus Qualifiers: Epilepsy type: unspecified Intractability: not intractable Status epilepticus: without status epilepticus Qualified Code(s): G40.909 - Epilepsy, unspecified, not intractable, without status epilepticus Plan: Stable with no recent recurrence Continue Trileptal 300 mg 1 tablet Q AM and 2 tablets Q PM Follow up with neurology as scheduled (8) Constipation: Code(s): K59.00 - Constipation, unspecified Qualifiers: Constipation type: unspecified constipation type Qualified Code(s): K59.00 - Constipation, unspecified Plan: Encouraged increased oral fluids and dietary fiber Have advised patient that her opioid Rx may also be contributing to her constipation Will start patient for now on Senna 8.6 mg Q HS PRN (9) Overactive bladder: Code(s): N32.81 - Overactive bladder Plan: Continue Myrbetriq ER 25 mg QD Follow up with urology as scheduled (10) Insomnia: Code(s): G47.00 - Insomnia, unspecified Qualifiers: Insomnia type: unspecified Qualified Code(s): G47.00 - Insomnia, unspecified Plan: Sleep hygiene reinforced Continue Trazodone 100 mg 1.5 tablets (150 mg) Q HS PRN (11) Anxiety: Code(s): F41.9 - Anxiety disorder, unspecified Plan: Continue Lorazepam 0.5 mg 1 to 2 tablets once a day at bedtime as needed (12) Depression: Code(s): F32.9 - Major depressive disorder, single episode, unspecified Qualifiers: Depression Type: unspecified Qualified Code(s): F32.9 - Major depressive disorder, single episode, unspecified Plan: Continue Mirtazapine 15 mg Q HS (13) Overweight (BMI 25.0-29.9): Code(s): E66.3 - Overweight Plan: Reinforced diet/exercise as tolerated/lose weight, although due to her age, comorbidites and physical condition/issues, her activity and exercise tolerance is very limited Plan Follow up in 3 months Orders: Orders Lipid Panel 3 Months E78.00 - Pure hypercholesterolemia, unspecified Thyroid Stimulating Hormone 3 Months E03.9 - Hypothyroidism, unspecified Free T4 (Free Thyroxine) 3 Months E03.9 - Hypothyroidism, unspecified Complete Blood Count Auto Diff 3 Months I10 - Essential (primary) hypertension Comprehensive [facility]. Panel Fast 3 Months E78.00 - Pure hypercholesterolemia, unspecified Vitamin D 25-OH Total 3 Months E55.9 - Vitamin D deficiency, unspecified UA CC w/rflx Micro + Cult 3 Months R30.0 - Dysuria Medications: New levothyroxine Take on an empty stomach, first thing in the morning, with water. Do not eat or drink anything else for 30 minutes afterwards 25 mcg PO DAILY 90 days 90 tabs 3RF E03.9 - Hypothyroidism, unspecified sennosides (senna) 8.6 mg PO BEDTIME 90 days PRN 90 caps 3RF constipation levothyroxine Take on an empty stomach, first thing in the morning, with water. Do not eat or drink anything else for 30 minutes afterwards 25 mcg PO DAILY 15 days 15 tabs 0RF E03.9 - Hypothyroidism, unspecified Coding Level of Care Code Est Pt Level 4 (01481) Diagnoses Benign essential hypertension I10 Pure hypercholesterolemia E78.00 Degenerative disc disease, cervical M50.30 Primary osteoarthritis involving multiple joints M89.49 Osteoarthritis location: multiple joints Osteoarthritis type: primary Malignant neoplasm of left breast in female, estrogen receptor positive, unspecified site of breast C50.912; Z17.0 Breast location: unspecified site of breast Estrogen receptor status: positive Patient sex: female Acquired hypothyroidism E03.9 Nonintractable epilepsy without status epilepticus, unspecified epilepsy type G40.909 Epilepsy type: unspecified Intractability: not intractable Status epilepticus: without status epilepticus Constipation, unspecified constipation type K59.00 Constipation type: unspecified constipation type Overactive bladder N32.81 Insomnia, unspecified type G47.00 Insomnia type: unspecified Anxiety F41.9 Depression, unspecified depression type F32.9 Depression Type: unspecified Overweight (BMI 25.0-29.9) E66.3
== END 2023-04-26 11:54 | disposition home or self-care (01) ==
PROVIDERS: PCP Internal Medicine; Visit Provider Internal Medicine
DX: I10 Essential (primary) hypertension (principal); E78.00 Pure hypercholesterolemia, unspecified; M50.30 Other cervical disc degeneration, unspecified cervical region; M89.49 Other hypertrophic osteoarthropathy, multiple sites; E03.9 Hypothyroidism, unspecified; K59.00 Constipation, unspecified; N32.81 Overactive bladder; G47.00 Insomnia, unspecified; F41.9 Anxiety disorder, unspecified; F32.9 Major depressive disorder, single episode, unspecified; E66.3 Overweight
CPT/HCPCS: 99214

== ENCOUNTER 2023-05-08 13:42 | Outpatient (AMB) | payer MEDICARE, SELFPAY ==
--- NOTE | 2023-05-08 13:50 | MHC.OFFVIS ---
Intake Vital Signs 05/08/23 13:54 Height 5 ft 3 in Weight 163 lb 2.273 oz BMI 28.9 BP 143/66 H Blood Pressure Location Rt brachial Position Sitting Pulse 83 Intake Visit Reasons: ? left breast infection Intake Note: This patient presents for question left breast infection. Patient c/o; reports redness, reports hot to touch sensation, on abx; Cephalexin 500mg tid x10 days. 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 Accompanied by: Self / Same As Patient Allergies sertraline [SERTRALINE] Allergy (Severe, Verified 05/08/23 13:54) DROPPED SODIUM LEVEL, BP increase Sodium drop aspirin [ASPIRIN] Allergy (Intermediate, Verified 05/08/23 13:54) RISK OF BLEDING NSAIDS (Non-Steroidal Anti-Inflamma Allergy (Unknown, Verified 05/08/23 13:54) risk of bleeding phenytoin [Dilantin] Allergy (Unknown, Verified 05/08/23 13:54) unknown Medication List - Last Reconciled 05/08/23 by Lucio Stout MD amlodipine 5 mg PO DAILY anastrozole 1 mg PO DAILY atenolol 50 mg PO DAILY atorvastatin 80 mg PO DAILY cephalexin 500 mg PO TID fluticasone propionate 50 mcg/actuation 2 sprays intranasal DAILY PRN irbesartan 300 mg PO DAILY levothyroxine 25 mcg PO DAILY 15 days lidocaine HCl 4% (Aspercreme (lidocaine HCl)) 1 appl topical BID lorazepam 0.5 mg PO BID PRN 30 days mirtazapine 15 mg PO BEDTIME 90 days Myrbetriq ER (mirabegron) 25 mg PO DAILY NS oxcarbazepine TAKE 1 TABLET BY MOUTH DAILY IN THE MORNING AND 2 TABLETS BY MOUTH DAILY IN THE EVENING oxycodone 5 mg PO Q6H PRN 28 days oxycodone-acetaminophen 5-325 mg 1 tab PO Q4-6H PRN sennosides (senna) 8.6 mg PO BEDTIME PRN 90 days trazodone 150 mg PO BEDTIME HPI HPI Comments History of Present Illness Details Patient presents with a several-day history of left breast pain. She was seen by her oncologist and was found have superficial left breast cellulitis. She presents here for further evaluation. Patient is currently being treating by Oncology for her breast cancer. Patient is well known to me. [facility] Medical History (Updated 05/01/23 @ 04:12 by Kelvin Pruett MD) Constipation Acquired hypothyroidism Overweight (BMI 25.0-29.9) Cataract Seizures Stroke (~2000) Ash ash disease (~2000) Urinary frequency Allergic rhinitis Degenerative disc disease, cervical Neck pain Depression Anxiety Insomnia Epilepsy Obesity (BMI 30-39.9) Osteoarthritis Benign essential hypertension Pure hypercholesterolemia Rib pain on right side Left shoulder pain Recurrent dry cough Pain of right scapula Right-sided thoracic back pain Surgical History Hx of colonoscopy History of kidney surgery Status post cervical disc replacement History of knee replacement procedure of right knee Hx of knee surgery Family History Father Chronic mental illness Mother Hypertension Other Mental health problem Social History Housing: House Alcohol intake: current Alcohol intake frequency: does not drink Alcohol type: wine Patient Tobacco Use Status: Former Tobacco user Tobacco use type: Cigarette e-Cigarette/Vaping Use: Never Used Second Hand Smoke Exposure: Yes service: No Current occupational status: retired Cognitive needs: No Hearing needs: No Vision needs: No Physical Exam Vital Signs: Last Vital Signs Pulse 83 05/08/23 13:54 BP 143/66 H 05/08/23 13:54 BMI result Body Mass Index 28.9 Chest Other: Left periareolar and 12 o'clock position superficial cellulitis. Under sterile technique, incision site was aspirated and clear serous fluid postsurgical seroma was retrieved. No evidence of any purulence or abscess Assessment & Plan Assessment & Plan (1) Cellulitis of breast: Code(s): N61.0 - Mastitis without abscess Plan: , current plan is for patient continue antibiotics per Oncology, warm compresses, and left breast ultrasound. Patient will see me in few days time for follow-up or p.r.n. Orders: Orders US breast LT limited Today R92.1 - Mammographic calcification found on diagnostic imaging of breast Coding Level of Care Code Global (70959) Diagnoses Cellulitis of breast N61.0
[2023-05-08 13:54] VITALS: BP 143/66; PULSE 83; BMI 28.9
== END 2023-05-08 14:14 | disposition home or self-care (01) ==
PROVIDERS: PCP Internal Medicine; Visit Provider Surgery
DX: N61.0 Mastitis without abscess (principal)
CPT/HCPCS: 99024

== ENCOUNTER → 2023-05-08 13:42 | Outpatient (BNVA) | payer MEDICARE, SELFPAY | PROVIDERS: PCP Internal Medicine; Visit Provider Surgery | DX: N61.0 Mastitis without abscess (principal) | CPT/HCPCS: 99212 ==

== ENCOUNTER 2023-05-09 14:14 | Outpatient (REF) | payer MEDICARE, SELFPAY ==
--- NOTE | ~2023-05-09 | US_ITS ---
EXAMINATION: US DIAGNOSTIC ULTRASOUND BREAST, LEFT CLINICAL INFORMATION: Left breast seroma/fluid collection status post lumpectomy 12:00 axis, approximately 4 cm from the nipple.. COMPARISON: None relevant. TECHNIQUE: Ultrasound of the left breast breast is performed with real-time lopez scale imaging and color Doppler. FINDINGS: Within the 12:00 axis of the left breast approximately 4 cm from the nipple, there is a large hypoechoic predominantly anechoic fluid collection measuring 4.7 x 2.9 x 4.1 cm, most consistent with a postop seroma. There is no increased color Doppler signal surrounding the fluid collection. There are subtle septations noted within the fluid cavity. No additional abnormal findings. Results are discussed with the patient at time of visit. US/US breast LT limited IMPRESSION: Probable seroma as detailed 12:00 axis left breast, measuring up to 4.[address] Stout notified via secure text. ASSESSMENT: BI-RADS 2: Benign RECOMMENDATION: Clinical management. Ultrasound drainage in the mammogram department is offered if felt warranted..
== END 2023-05-09 14:15 | disposition home or self-care (01) ==
LOC: HO.MAMMO 14:14
PROVIDERS: PCP Internal Medicine; Visit Provider Surgery
DX: R92.1 Mammographic calcification found on diagnostic imaging of breast (principal)
CPT/HCPCS: 76642

== ENCOUNTER 2023-05-12 11:05 | Outpatient (AMB) | payer MEDICARE, SELFPAY ==
[2023-05-12 11:10] VITALS: BP 139/61; PULSE 83; BMI 28.9
--- NOTE | 2023-05-12 11:10 | MHC.OFFVIS ---
Intake Vital Signs 05/12/23 11:10 Height 5 ft 3 in Weight 163 lb BMI 28.9 BP 139/61 Blood Pressure Location Rt brachial Position Sitting Pulse 83 Intake Visit Reasons: follow up lt brst infection, f/u us Intake Note: Patient here for f/u Lt breast cellulitis. Lt beast US on 05-09-23. Reports Lt breast cellulitis improved with Cephalexin. Abx will finish in a couple of days. Patient c/o pain and tenderness at site. Take Down Inspector Required: No Accompanied by: Self / Same As Patient Allergies sertraline [SERTRALINE] Allergy (Severe, Verified 05/12/23 11:12) DROPPED SODIUM LEVEL, BP increase Sodium drop aspirin [ASPIRIN] Allergy (Intermediate, Verified 05/12/23 11:12) RISK OF BLEDING NSAIDS (Non-Steroidal Anti-Inflamma Allergy (Unknown, Verified 05/12/23 11:12) risk of bleeding phenytoin [Dilantin] Allergy (Unknown, Verified 05/12/23 11:12) unknown Medication List - Last Reconciled 05/12/23 by Lucio Stout MD amlodipine 5 mg PO DAILY anastrozole 1 mg PO DAILY atenolol 50 mg PO DAILY atorvastatin 80 mg PO DAILY cephalexin 500 mg PO TID fluticasone propionate 50 mcg/actuation 2 sprays intranasal DAILY PRN irbesartan 300 mg PO DAILY levothyroxine 25 mcg PO DAILY 15 days lidocaine HCl 4% (Aspercreme (lidocaine HCl)) 1 appl topical BID lorazepam 0.5 mg PO BID PRN 30 days mirtazapine 15 mg PO BEDTIME 90 days Myrbetriq ER (mirabegron) 25 mg PO DAILY NS oxcarbazepine TAKE 1 TABLET BY MOUTH DAILY IN THE MORNING AND 2 TABLETS BY MOUTH DAILY IN THE EVENING oxycodone 5 mg PO Q6H PRN 28 days oxycodone-acetaminophen 5-325 mg 1 tab PO Q4-6H PRN sennosides (senna) 8.6 mg PO BEDTIME PRN 90 days trazodone 150 mg PO BEDTIME HPI HPI Comments History of Present Illness Details Patient presents for follow-up. She has had moderate improvement of her left breast cellulitis. Ultrasound demonstrated no evidence of any abscess. Patient is completing her course of antibiotics. [facility] Medical History Constipation Acquired hypothyroidism Overweight (BMI 25.0-29.9) Cataract Seizures Stroke (~2000) Ash ash disease (~2000) Urinary frequency Allergic rhinitis Degenerative disc disease, cervical Neck pain Depression Anxiety Insomnia Epilepsy Obesity (BMI 30-39.9) Osteoarthritis Benign essential hypertension Pure hypercholesterolemia Rib pain on right side Left shoulder pain Recurrent dry cough Pain of right scapula Right-sided thoracic back pain Surgical History Hx of colonoscopy History of kidney surgery Status post cervical disc replacement History of knee replacement procedure of right knee Hx of knee surgery Family History Father Chronic mental illness Mother Hypertension Other Mental health problem Social History Housing: House Alcohol intake: current Alcohol intake frequency: does not drink Alcohol type: wine Patient Tobacco Use Status: Former Tobacco user Tobacco use type: Cigarette e-Cigarette/Vaping Use: Never Used Second Hand Smoke Exposure: Yes service: No Current occupational status: retired Cognitive needs: No Hearing needs: No Vision needs: No Physical Exam Vital Signs: Last Vital Signs Pulse 83 05/12/23 11:10 BP 139/61 05/12/23 11:10 BMI result Body Mass Index 28.9 Chest Other: Modest improvement of left breast cellulitis. Under sterile technique, seroma was aspirated and was of clear fluid. Approximately 20 cc was retrieved. Assessment & Plan Assessment & Plan (1) Cellulitis of breast: Code(s): N61.0 - Mastitis without abscess Plan Current plan is for the patient to continue antibiotic therapy and local wound care. She will see me approximately 1.5 weeks time or p.r.n.. All questions answered. Medications: New cephalexin 500 mg PO TID 30 caps 0RF Coding Level of Care Code Global (51842) Diagnoses Cellulitis of breast N61.0
== END 2023-05-12 11:36 | disposition home or self-care (01) ==
PROVIDERS: PCP Internal Medicine; Visit Provider Surgery
DX: N61.0 Mastitis without abscess (principal)
CPT/HCPCS: 99024

== ENCOUNTER → 2023-05-12 11:05 | Outpatient (BNVA) | payer MEDICARE, SELFPAY | PROVIDERS: PCP Internal Medicine; Visit Provider Surgery | DX: N61.0 Mastitis without abscess (principal) | CPT/HCPCS: 99212 ==

== ENCOUNTER 2023-05-23 09:03 | Observation (INO) | payer MEDICARE, SELFPAY ==
[2023-05-23] VITALS (10 sets, daily range): BP systolic 134–169; BP diastolic 55–86; PULSE 74–90; RESP 18–22; TEMP 36.8–37; O2SAT 90–98; BMI 29.0
--- NOTE | ~2023-05-23 | XR_ITS ---
EXAMINATION: XR CHEST CLINICAL INFORMATION: Cough. COMPARISON: None available. TECHNIQUE: 2 views of the chest were obtained. FINDINGS: The lungs are well-expanded and clear of acute process. Heart size and pulmonary vascularity is normal. There is mild dextroscoliosis dorsal spine. No aggressive lytic or sclerotic process seen. XR/XR chest 2V IMPRESSION: Unremarkable chest examination.
--- NOTE | 2023-05-23 09:43 | PC.NURSE ---
Pt reports SOB progressively worsening x's 1 week. Pt denies hx of COPD, asthma, or emphysema. Pt states she does have a hx of HTN, HLD, and recent breast infection for which she is on abx therapy. Pt lung soudns clear on auscultation; no noted edema to extremities can be assessed. Pt sat 95% on RA. BP norotensive. Pt declines any sick contacts.
--- NOTE | 2023-05-23 09:49 | MHC.EDTECH ---
This pct ambulated patient to conduct a sat test at the request of the provider, patient started at 92% o2 then byn the time we made it back to the room patient dropped to 90% o2
--- NOTE | 2023-05-23 10:01 | ED_ITS ---
HPI - General Adult General Chief complaint: Upper Respiratory Symptoms Stated complaint: Productive Cough Time Seen by Provider: 05/23/23 09:31 Source: patient Mode of arrival: ambulatory Limitations: no limitations History of Present Illness HPI narrative: 82-year-old female history of hypertension, hypothyroidism, breast cancer presenting to the emergency department for evaluation of cough, fatigue, malaise, myalgias, wheezing ongoing for the past week worsening. Patient reports some shortness of breath with exertion. Has not been feeling herself. Symptoms seem to be worse at night. Denies sick contacts. Denies chest pain, nausea, vomiting, abdominal pain, diarrhea, headache, vision changes. Related Data Home Medications Medication Instructions Recorded Confirmed anastrozole 1 mg tablet 1 mg PO DAILY 04/26/23 05/23/23 oxcarbazepine 300 mg tablet 300 mg PO TID 05/23/23 05/23/23 Previous Rx's Medication Instructions Recorded lorazepam 0.5 mg tablet 0.5 mg PO BID PRN anxiety 30 days 02/14/23 #60 tabs amlodipine 5 mg tablet 5 mg PO DAILY #90 tabs 02/28/23 atenolol 50 mg tablet 50 mg PO DAILY #90 tabs 02/28/23 atorvastatin 80 mg tablet 80 mg PO DAILY #90 tabs 02/28/23 oxycodone-acetaminophen 5 mg-325 1 tab PO Q4-6H PRN pain #30 tabs 03/02/23 mg tablet irbesartan 300 mg tablet 300 mg PO DAILY #90 tabs 03/22/23 mirtazapine 15 mg tablet 15 mg PO BEDTIME 90 days #90 tabs 03/31/23 levothyroxine 25 mcg tablet 25 mcg PO DAILY 15 days #15 tabs 04/26/23 sennosides 8.6 mg capsule (senna) 8.6 mg PO BEDTIME PRN constipation 04/26/23 90 days #90 caps Allergies Allergy/AdvReac Type Severity Reaction Status Date / Time sertraline [SERTRALINE] Allergy Severe DROPPED Verified 05/23/23 09:24 SODIUM LEVEL, BP increase Sodium drop aspirin [ASPIRIN] Allergy Intermediate RISK OF Verified 05/23/23 09:24 BLEDING NSAIDS (Non-Steroidal Allergy Unknown risk of Verified 05/23/23 09:24 Anti-Inflamma bleeding phenytoin [Dilantin] Allergy Unknown unknown Verified 05/23/23 09:24 Review of Systems 2 Review of Systems: Constitutional : No Weight loss, No Fever, No Chills, No Fatigue, No Malaise ENT/Mouth : No sore throat, No Rhinorrhea Eyes: No Eye Pain, No Swelling, No Redness Cardiovascular : No Chest Pain, + SOB, No Dyspnea on Exertion, No Orthopnea, No Edema, No Palpitations Respiratory : + Cough, + Sputum, + Wheezing Gastrointestinal : No Nausea, No Vomiting, No Diarrhea, No Constipation, No abdominal Pain, No Hematochezia, No Melena Genitourinary : No Dysuria, No Urinary Frequency, No Hematuria, Musculoskeletal : No joint pain, No Myalgias, No Joint Swelling Skin : No Skin Lesions, No rash Neuro : No Weakness, No Numbness, No Dizziness, No Headache Psych : No Anxiety/Panic, No Depression All other systems reviewed and are negative Yes all other systems are reviewed and are negative [facility] Past Medical History Attestation statement: The following information was validated with the patient. Source: old records reviewed and nursing notes reviewed Medical History Constipation Acquired hypothyroidism Overweight (BMI 25.0-29.9) Cataract Seizures Stroke (~2000) Ash ash disease (~2000) Urinary frequency Allergic rhinitis Degenerative disc disease, cervical Neck pain Depression Anxiety Insomnia Epilepsy Obesity (BMI 30-39.9) Osteoarthritis Benign essential hypertension Pure hypercholesterolemia Rib pain on right side Left shoulder pain Recurrent dry cough Pain of right scapula Right-sided thoracic back pain Surgical History Hx of colonoscopy History of kidney surgery Status post cervical disc replacement History of knee replacement procedure of right knee Hx of knee surgery Family History Family History Father Chronic mental illness Mother Hypertension Other Mental health problem Social History Social History Housing: House Alcohol intake: current Alcohol intake frequency: holidays/special occasions only Alcohol type: wine Patient Tobacco Use Status: Former Tobacco user Tobacco use type: Cigarette e-Cigarette/Vaping Use: Never Used Second Hand Smoke Exposure: Yes Use of substances other than those prescribed or required for medical reasons: No Advance Directives: Yes Advance Directives Information Provided: Yes Advance Directives on File: No service: No Current occupational status: retired Cognitive needs: No Hearing needs: No Vision needs: No Physical Exam ED Vital Signs: Vital Signs - 24 hr 05/23/23 09:24 05/23/23 09:39 05/23/23 09:46 Temperature 98.3 F Pulse Rate 85 79 Respiratory Rate 18 20 Blood Pressure 140/86 H 134/62 Pulse Oximetry 97 95 95 Oxygen Delivery Method Room Air Room Air Room Air 05/23/23 09:49 05/23/23 10:08 05/23/23 12:23 Temperature 98.4 F Pulse Rate 74 83 Respiratory Rate 18 22 H Blood Pressure 169/55 H Pulse Oximetry 90 L 94 Oxygen Delivery Method Room Air Room Air BMI result Body Mass Index 29.0 vss Appearance: Alert.? Oriented X3.? No acute distress.? Head: Normocephalic, atraumatic, no step-offs or deformities Eyes: Pupils equal, round and reactive to light.? ENT: Pharynx normal.? Neck: Normal inspection.? Neck supple.? CVS: Normal heart rate and rhythm.? Pulses normal.? Respiratory: No respiratory distress.? Breath sounds significant expiratory wheezing bilaterally, with faint crackles to bilateral lower lobes.? Abdomen: Soft and nontender.? Skin: Skin warm and dry.? Normal skin color.? Normal skin turgor.? Extremities: No lower extremity edema.? No calf ttp. 5/5 strength to bilateral upper and lower extremities Neuro: Oriented X 3.? No motor deficit.? No sensory deficit. CN 2-12 intact Course Reevaluation(s) Reevaluation #1: Ambulatory O2 patient became short of breath with labored breathing and was saturating 90% on room air had to go sit down. Steroids, bronch protocol and mag ordered. Likely hospital admission. Time: 10:07 Reevaluation #2: CBC with a normocytic anemia that appears to be around patient's baseline there is neutrophil predominance. Chemistry unremarkable. Troponin negative, EKG nonischemic. Lactic acid 2.4 patient receiving IV ceftriaxone as well as fluids. On reexamination patient has crackles bilaterally, worse on the right. I do have some concerns for pneumonia versus bronchitis. Patient 90% with ambulation will admit at this time for hypoxia and suspected pneumonia. RsV pending Time: 11:21 Reevaluation #3: RSV positive. Repeat ambulatory trial lowest oxygen 92%. Patient is reporting she feels tired however her breathing is improved from initially. Still having significant wheezing. Hospitalist will admit for obs. Request I cancel CT of chest. Time: 12:17 Additional Reevaluation(s): Patient to be admitted Medications Administered Generic Name Dose Route Start Last Admin Trade Name Freq PRN Reason Stop Dose Admin Enoxaparin Sodium 40 mg 05/23/23 12:30 05/23/23 12:40 Enoxaparin Sodium 40 Mg/0.4 Ml Syringe SUBCUT 40 mg Q24H ALANA Administration Discontinued Medications Generic Name Dose Route Start Last Admin Trade Name Freq PRN Reason Stop Dose Admin Albuterol Sulfate 2.5 mg/ 0 mg 05/23/23 10:03 05/23/23 10:06 Albuterol/Ipratropium 3 ml INHALE 05/23/23 10:04 1 dose ONCE ONE Administration Ceftriaxone Sodium 1 gm/ 50 mls @ 100 mls/hr 05/23/23 10:04 05/23/23 12:43 Sodium Chloride IV 05/23/23 10:33 Infused ONCE ONE Infusion Magnesium Sulfate 2 gm in 50 mls @ 25 mls/hr 05/23/23 10:05 05/23/23 10:54 Magnesium Sulfate/H2o IV 05/23/23 12:04 25 mls/hr ONCE ONE Administration Sodium Chloride 500 mls @ 500 mls/hr 05/23/23 11:30 05/23/23 12:41 Ns IV 05/23/23 12:29 500 mls/hr .Q1H ALANA Administration Methylprednisolone Sodium Succinate 125 mg 05/23/23 10:04 05/23/23 10:54 Methylprednisolone Sod Succ 125 Mg/2 Ml Vial IVPUSH 05/23/23 10:05 125 mg ONCE ONE Administration Medical Decision Making Medical Decision Making [facility] Narrative: 1004 82-year-old female presents with complaints of cough, fatigue, malaise, wheezing times 1 week physical exam with expiratory wheezing and faint crackles bilaterally history and physical exam concerning for bronchitis versus viral illness versus pneumonia. Unlikely acute respiratory distress, pneumothorax, pulmonary embolism. Plan- labs, imaging, viral test. Differential Diagnosis Differential Diagnoses: The differential diagnosis associated with the presentation includes history and physical exam concerning for bronchitis versus viral illness versus pneumonia. Unlikely acute respiratory distress, pneumothorax, pulmonary embolism. Admission/Observation Consideration of admission/observation: Escalation of care including admission/observation considered possible Consult Healthcare Provider Management of the patient was discussed with: Hospitalist Lab Data [facility] Lab Attestation statement: I reviewed the patient's lab results. 05/23/23 10:22 05/23/23 10:22 Labs: Lab Results 05/23/23 05/23/23 05/23/23 Range/Units 09:43 10:22 10:47 WBC 7.2 (4.8-10.8) X10*3/uL RBC 3.62 L (4.20-5.50) X10*6/uL Hgb 10.8 L (12.0-16.0) g/dl Hct 32.9 L (37.0-47.0) % MCV 90.9 (80.0-98.0) fL MCH 29.8 (27.0-33.0) pg MCHC 32.8 (31.0-35.0) g/dl RDW 13.0 (11.0-16.0) % Plt Count 277 (160-400) X10*3/uL MPV 9.4 (9.4-12.3) fL Immature Gran % (Auto) 0.4 (0.0-0.4) % Neut % (Auto) 78.1 H (45-73) % Lymph % (Auto) 13.7 L (20-40) % [place] % (Auto) 6.6 (2-11) % Eos % (Auto) 0.8 (0-4) % Baso % (Auto) 0.4 (0-2) % Lymph # (Auto) 1.0 L (1.2-4.9) X10*3/uL [place] # (Auto) 0.5 (0.1-1.2) X10*3/uL Eos # (Auto) 0.1 (0.0-0.4) X10*3/uL Baso # (Auto) 0.0 (0.0-0.2) X10*3/uL Abs Immat Gran (auto) 0.03 (0.00-0.03) X10*3/uL Absolute Neuts (auto) 5.6 (2.0-8.3) x10*3/uL Absolute Nucleated RBC 0.000 (0.0-0.012) X10*3/uL Nucleated RBC % (auto) 0.0 (0.0-0.2) /100WBC Sodium 137 (135-145) mmol/L Potassium 4.0 (3.3-5.1) mmol/L Chloride 102 (96-108) mmol/L Carbon Dioxide 24 (22-29) mmol/L Anion Gap 15 (12-20) BUN 12 (9-16) mg/dL Creatinine 0.91 (0.5-1.4) mg/dL Estim Creat Clear Calc 47.6 Estimated GFR 59 Random Glucose 143 H (60-115) mg/dL Lactic Acid 2.4 H* (0.5-2.0) mmol/L Calcium 9.6 (8.4-10.2) mg/dL Magnesium 1.8 (1.6-2.6) mg/dL Total Bilirubin 0.3 (0.0-1.0) mg/dL AST 18 (5-31) U/L ALT 14 (0-31) U/L Alkaline Phosphatase 118 H (39-117) U/L Troponin I High Sens < 2.7 (<3.5-17.0) ng/L B-Natriuretic Peptide 75 (<100) pg/mL Total Protein 7.3 (6.5-8.0) g/dL Albumin 4.0 (3.5-5.0) g/dL Procalcitonin 0.04 ng/mL COVID-19 (ELMO) Negative (Negative) COVID-19 Clin Com See Note Influenza Type A (BERNICE) Negative (Negative) Influenza Type A (PCR) NEGATIVE (Negative) Influenza Type B (BERNICE) Negative (Negative) Influenza Type B (PCR) NEGATIVE (Negative) Influenza A & B Note See Note RSV RNA Qual (PCR) POSITIVE A (Negative) SARS-CoV-2 RNA (RT-PCR) NEGATIVE (Negative) Independent Interpretation I performed an independent interpretation of an: Plain X-Ray (9 XR/XR chest 2V IMPRESSION: Unremarkable chest examination.) Radiology Impression Discussion of test interpretation with radiology: I have reviewed the radiologist's reading. Chronic Conditions Patient?s care impacted by: Hypertension and Other (hypothyroidism ) Critical Care Time Critical Care Time Critical Care Time: Yes Total Critical Care Time: 35 Attestation: I attest to this time spent taking care of the patient, obtaining history, physical, reviewing labs, imaging, speaking to my attending, speaking to specialist. Discharge Plan Discharge Clinical Impression: Pneumonia, Respiratory syncytial virus (RSV) Patient Disposition: Still a Patient Prescriptions: No Action lorazepam 0.5 mg tablet 0.5 mg PO BID PRN (Reason: anxiety) 30 Days Qty: 60 0RF amlodipine 5 mg tablet 5 mg PO DAILY Qty: 90 3RF atorvastatin 80 mg tablet 80 mg PO DAILY Qty: 90 3RF atenolol 50 mg tablet 50 mg PO DAILY Qty: 90 3RF irbesartan 300 mg tablet 300 mg PO DAILY Qty: 90 3RF mirtazapine 15 mg tablet 15 mg PO BEDTIME 90 Days Qty: 90 1RF oxycodone-acetaminophen 5-325 mg tablet 1 tab PO Q4-6H PRN (Reason: pain) Qty: 30 0RF Rx Instructions: Partial Fill upon patient request. oxcarbazepine 300 mg tablet 300 mg PO TID anastrozole 1 mg tablet 1 mg PO DAILY senna 8.6 mg capsule 8.6 mg PO BEDTIME PRN (Reason: constipation) 90 Days Qty: 90 3RF levothyroxine 25 mcg tablet 25 mcg PO DAILY 15 Days Qty: 15 0RF Rx Instructions: Take on an empty stomach, first thing in the morning, with water. Do not eat or drink anything else for 30 minutes afterwards
[2023-05-23 10:03] LABS: COVID-19 Test Negative (Negative); IDNOW Serial# 08D9AD1C; IDNOW Serial# BCCEAD1C; Influenza A Negative (Negative); Influenza B2 Negative (Negative)
--- NOTE | 2023-05-23 10:05 | ECG_ITS ---
Test Reason : SOB Blood Pressure : / mmHG Vent. Rate : 085 BPM Atrial Rate : 085 BPM P-R Int : 158 ms QRS Dur : 078 ms QT Int : 376 ms P-R-T Axes : 033 -07 032 degrees QTc Int : 447 ms Artifact in tracing Sinus rhythm with Premature atrial complexes Minimal voltage criteria for LVH, may be normal variant ( R in aVL ) Borderline ECG When compared with ECG of 14-MAY-2018 00:36, Premature atrial complexes are now Present T wave amplitude has decreased in Anterior leads Referred By: Alfonso Angeles Electronically Signed By:KILO DORSEY
[2023-05-23] MEDS: Albuterol Sulfate 2.5 MG, Albuterol/Iprat 2.5/0.5MG 3 ML 3 ML INHALE (10:06)
[2023-05-23 10:27] LABS: MANUAL DIFF FLAG NO
[2023-05-23 10:28] LABS: Basophils Percent Auto 0.4 % (0-2); Eosinophils Absolute Auto 0.1 X10*3/uL (0.0-0.4); Eosinophils Percent Auto 0.8 % (0-4); Hematocrit 32.9 % (37.0-47.0); Hemoglobin 10.8 g/dl (12.0-16.0); Imm Gran Abs Auto 0.03 X10*3/uL (0.00-0.03); Imm Gran Pct Auto 0.4 % (0.0-0.4); Lymphocytes Percent Auto 13.7 % (20-40); Mean Corpuscular HGB Conc 32.8 g/dl (31.0-35.0); Mean Corpuscular Hemoglobin 29.8 pg (27.0-33.0); Mean Corpuscular Volume 90.9 fL (80.0-98.0); Mean Platelet Volume 9.4 fL (9.4-12.3); Monocytes Absolute Auto 0.5 X10*3/uL (0.1-1.2); Monocytes Percent Auto 6.6 % (2-11); Neutrophils Absolute Auto 5.6 x10*3/uL (2.0-8.3); Neutrophils Percent Auto 78.1 % (45-73); Platelet Count 277 X10*3/uL (160-400); Red Blood Count 3.62 X10*6/uL (4.20-5.50); White Blood Count 7.2 X10*3/uL (4.8-10.8)
[2023-05-23] MEDS: methylPREDNISolone Sod Succ 125 MG/2 ML VIAL IVPUSH (10:54)
[2023-05-23] MEDS: cefTRIAXone sodium 1 GM in 0.9 % Sodium Chloride 50 ML IV (10:54)
[2023-05-23] MEDS: Magnesium Sulfate/H2O 2 GM/50 ML PIGGYBACK IV (10:54)
[2023-05-23 10:57] LABS: Alanine Aminotransferase 14 U/L (0-31); Alkaline Phosphatase 118 U/L (39-117); Anion Gap 15 (12-20); Aspartate Amino Transferase 18 U/L (5-31); Bilirubin Total 0.3 mg/dL (0.0-1.0); Blood Urea Nitrogen 12 mg/dL (9-16); Calcium 9.6 mg/dL (8.4-10.2); Carbon Dioxide 24 mmol/L (22-29); Chloride 102 mmol/L (96-108); Creatinine Clr Calc Pharmacy 47.6; Estimated Glomerular Filt Rate 59; Glucose Random 143 mg/dL (60-115); Magnesium 1.8 mg/dL (1.6-2.6); Sodium 137 mmol/L (135-145); Total Protein 7.3 g/dL (6.5-8.0)
[2023-05-23 10:59] LABS: Lactic Acid 2.4 mmol/L (0.5-2.0)
[2023-05-23 11:01] LABS: B Type Natriuretic Peptide 75 pg/mL (<100)
[2023-05-23 11:02] LABS: Troponin-I High Sensitivity < 2.7 ng/L (<3.5-17.0)
[2023-05-23 11:39] LABS: Influenza A PCR NEGATIVE (Negative); Influenza B PCR NEGATIVE (Negative); Resp Syncy Virus RNA Qual PCR POSITIVE (Negative); SARS COV2 PCR INHOUSE NEGATIVE (Negative)
--- NOTE | 2023-05-23 12:24 | PM.IMHP ---
History of Present Illness Date of Service: 05/23/23 Attending physician on admission: Maycol Cole Chief Complaint: SOB, dyspnea with exertion Pt is an 82-year-old female with a PMH significant for?HTN, HLD, hypothyroidism, hx of left breast cancer s/p lumpectomy 02/2023, moyamoya syndrome, and hemorrhagic CVA in 2000 who presents to the ED with?shortness of breath, cough, fatigue, and difficulty breathing x6 days. Patient states symptoms began on Monday of last week which she developed a cough and some shortness of breath. Symptoms worsened over the next few days to where she had significant shortness of breath, dyspnea upon exertion, fatigue, and constant cough productive of clear to whitish sputum. Reports symptoms worse at night. pt presents to the ED today after daughter found her to be significantly tired, fatigued, and not acting like herself. Pt denies chest pain/pressure, palpitations. No fever, chills, nausea, vomiting, abdominal pain. Denies headache. Of note, pt had left breast lumpectomy on 03/02/2023 and developed cellulitis of left breast approximately 2 months later. Was initially on a 10-day course of cephalexin 500 mg t.i.d. which was extended by another 10 days; pt finished course of abx last night. In the ED pt was patient was afebrile, but tachypneic up to 22, hypertensive up to 169/55, and satting as low as 90% on RA. Labs were significant for testing positive for RSV and lactic acid 2.4, otherwise unremarkable. No leukocytosis. Procalcitonin WNL at 0.04. CXR unremarkable with no evidence of consolidation or acute process. EKG demonstrated sinus rhythm with PACs and no evidence of significant ST elevations or depressions. Pt was treated with DuoNebs, Solu-Medrol, Mag sulfate, and ceftriaxone for empiric pneumonia coverage. Pt will be admitted to the hospital under observation for treatment and further evaluation of acute respiratory distress in the setting RSV infection. Review of Systems Review of Systems: Shortness of breath, GERARDO Persistent cough Fatigue Wheezing No chest pain/pressure, palpitations Denies fever, chills, N/V, abd pain PMFSH Medical History Constipation Acquired hypothyroidism Overweight (BMI 25.0-29.9) Cataract Seizures Stroke (~2000) Ash ash disease (~2000) Urinary frequency Allergic rhinitis Degenerative disc disease, cervical Neck pain Depression Anxiety Insomnia Epilepsy Obesity (BMI 30-39.9) Osteoarthritis Benign essential hypertension Pure hypercholesterolemia Rib pain on right side Left shoulder pain Recurrent dry cough Pain of right scapula Right-sided thoracic back pain Family History Father Chronic mental illness Mother Hypertension Other Mental health problem Surgical History Hx of colonoscopy History of kidney surgery Status post cervical disc replacement History of knee replacement procedure of right knee Hx of knee surgery Social History Housing: House Alcohol intake: current Alcohol intake frequency: holidays/special occasions only Alcohol type: wine Patient Tobacco Use Status: Former Tobacco user Tobacco use type: Cigarette Smoked in Last 30 Days: No e-Cigarette/Vaping Use: Never Used Patient Interested in Nicotine Replacement: No Patient Given Instructions on How to Stop Smoking: No Second Hand Smoke Exposure: No Use of substances other than those prescribed or required for medical reasons: No Advance Directives: Yes Advance Directives Information Provided: Yes Advance Directives on File: No Advance Directives Date on File: 05/23/23 Nutrition Risks: No Nutritional Risk service: No Current occupational status: retired Cognitive needs: No Hearing needs: No Vision needs: No Meds Allergies Allergy/AdvReac Type Severity Reaction Status Date / Time sertraline [SERTRALINE] Allergy Severe DROPPED Verified 05/23/23 09:24 SODIUM LEVEL, BP increase Sodium drop aspirin [ASPIRIN] Allergy Intermediate RISK OF Verified 05/23/23 09:24 BLEDING NSAIDS (Non-Steroidal Allergy Unknown risk of Verified 05/23/23 09:24 Anti-Inflamma bleeding phenytoin [Dilantin] Allergy Unknown unknown Verified 05/23/23 09:24 Active Medications: Current Medications Sodium Chloride (Ns) 500 mls @ 500 mls/hr IV .Q1H ALANA Stop: 05/23/23 12:29 Home Medications Medication Instructions Recorded Confirmed Last Taken Type anastrozole 1 mg tablet 1 mg PO DAILY 04/26/23 05/23/23 Unknown History oxcarbazepine 300 mg tablet 300 mg PO TID 05/23/23 05/23/23 Unknown History Physical Exam Vital Signs and Narrative: Vital Signs: Last Vital Signs Temp 98.4 F 05/23/23 12: Pulse 83 05/23/23 12:23 Resp 22 H 05/23/23 12:23 BP 169/55 H 05/23/23 12:23 Pulse Ox 94 05/23/23 12:23 O2 Del Method Room Air 05/23/23 12:23 BMI result Body Mass Index 29.0 Constitutional: Alert, audibly wheezing, in no acute distress. Mental Status: Oriented to person, place and time. Eyes: Pupils are equal, round, and reactive to light. Ear, Nose, and Throat: Oropharynx clear, mucous membranes moist. Ears and nose without deformities. Trachea midline. Respiratory: Significant bilateral wheezing and rhonchi. Cardiovascular: S1, S2, regularly irregular. No murmurs, rubs, or gallops. Chest: Left breast without erythema, warmth, or overt evidence of cellulitis Gastrointestinal: Abdomen soft, non-tender, non-distended. Normal bowel sounds. Neurologic: Cranial nerves II-XII are grossly intact bilaterally. No focal neurological deficits. Moves all extremities spontaneously. Skin: Warm, dry. Musculoskeletal: No cyanosis or clubbing. Extremities: No edema. Psychiatric: Normal mood and affect. Results Labs 05/23/23 10:22 05/23/23 10:22 Labs: Laboratory Results - last 24 hr 05/23/23 05/23/23 05/23/23 09:43 10:22 10:47 MCV 90.9 MCH 29.8 MCHC 32.8 RDW 13.0 Plt Count 277 MPV 9.4 Immature Gran % (Auto) 0.4 Neut % (Auto) 78.1 H Lymph % (Auto) 13.7 L [place] % (Auto) 6.6 Eos % (Auto) 0.8 Baso % (Auto) 0.4 Lymph # (Auto) 1.0 L [place] # (Auto) 0.5 Eos # (Auto) 0.1 Baso # (Auto) 0.0 Abs Immat Gran (auto) 0.03 Absolute Neuts (auto) 5.6 Absolute Nucleated RBC 0.000 Nucleated RBC % (auto) 0.0 Anion Gap 15 Estim Creat Clear Calc 47.6 Estimated GFR 59 Random Glucose 143 H Lactic Acid 2.4 H* Calcium 9.6 Magnesium 1.8 Total Bilirubin 0.3 AST 18 ALT 14 Alkaline Phosphatase 118 H B-Natriuretic Peptide 75 Total Protein 7.3 Albumin 4.0 COVID-19 (ELMO) Negative COVID-19 Clin Com See Note Influenza Type A (BERNICE) Negative Influenza Type A (PCR) NEGATIVE Influenza Type B (BERNICE) Negative Influenza Type B (PCR) NEGATIVE Influenza A & B Note See Note RSV RNA Qual (PCR) POSITIVE A SARS-CoV-2 RNA (RT-PCR) NEGATIVE Imaging Radiologist's Impressions: Impressions Chest X-Ray 05/23/23 09:57 IMPRESSION: Unremarkable chest examination. Assessment and Plan (1) Respiratory syncytial virus (RSV): Status: Acute Plan Pt is an 82-year-old female with a PMH significant for?HTN, HLD, hypothyroidism, hx of left breast cancer s/p lumpectomy 02/2023, moyamoya syndrome, and hemorrhagic CVA in 2000 who presents to the ED with?shortness of breath, cough, fatigue, and difficulty breathing x6 days. Pt will be admitted to the hospital under observation for treatment and further evaluation of acute respiratory distress in the setting RSV infection. Acute respiratory distress in the setting of RSV infection Pt with increased fatigue, SOB, cough, GERARDO for the 5-6 days Pt satting as low as 90% on RA; tested positive for RSV; significant wheezing on auscultation despite treatments in the ED Will treat with Duonebs, Solu-Medrol, Mucinex Elevated lactic acid Mildly elevated at 2.4 Likely secondary to respiratory distress, not sepsis; no sign of bacterial infection Repeat lactic acid Left breast cellulitis Patient last night completed 20-day course of cephalexin 500 mg t.i.d. No evidence of current cellulitis, no indication for continued/extended treatment at this time Follow up outpatient with Dr. Stout HTN Continue amlodipine, atenolol, irbesartan HLD Continue statin Hx of breast cancer Continue anastrozole Hypothyroidism Continue levothyroxine Mood disorder Continue mirtazapine Full Code Attending:?Dr. Cole DVT Prophylaxis: Lovenox Patient will be admitted to the hospital under observation for treatment of acute respiratory distress in the setting of RSV infection. Patient treated with IV steroids, breathing treatments, in close respiratory monitoring. Quality Stroke Does the patient have a stroke diagnosis?: No VTE Prior VTE?: No VTE Risk Level:: Medical - moderate - high VTE Device Contraindication: Treatment Not Indicated VTE Drug Contraindication: N/A - Med Ordered
[2023-05-23 12:25] LABS: Reflex Lactate? Lactic Acid Added
[2023-05-23 12:28] LABS: Procalcitonin 0.04 ng/mL
[2023-05-23] MEDS: Enoxaparin Sodium 40 MG/0.4 ML SYRINGE SUBCUT (12:40)
[2023-05-23] MEDS: 0.9 % Sodium Chloride 500 ML IV (12:41)
--- NOTE | 2023-05-23 12:48 | PHA.MEDREC ---
Pharmacy Consult ? Medication Reconciliation Pharmacy has completed the medication reconciliation.
--- NOTE | 2023-05-23 14:14 | MHC.EDTECH ---
Patient given lunch tray
[2023-05-23] MEDS: Albuterol/Iprat 2.5/0.5MG 3 ML AMPUL.NEB INHALE ×2 (15:27→19:59)
[2023-05-23] MEDS: OXcarbazepine 300 MG TABLET PO ×2 (15:43→20:17)
[2023-05-23 16:05] LABS: Lactic Acid 3.9 mmol/L (0.5-2.0)
[2023-05-23 17:10] LABS: Reflex Lactate? Lactic Acid Added
[2023-05-23] MEDS: 0.9 % Sodium Chloride Flush 3 ML SYRINGE IVFLUSH ×2 (17:26→20:22)
[2023-05-23] MEDS: guaiFENesin DM 200/20/10 ML 10 ML SYRUP PO (17:26)
[2023-05-23 17:55] LABS: ~Lactic Acid-LAB USE ONLY 3.6 mmol/L (0.5-2.0)
[2023-05-23] MEDS: methylPREDNISolone Sod Succ 40 MG/ML VIAL IVPUSH (18:26)
[2023-05-23 19:04] LABS: Cancel Lactic Acid Canceled
[2023-05-23] MEDS: Mirtazapine 15 MG TABLET PO (20:17)
[2023-05-23] MEDS: Acetaminophen 325 MG TABLET 650 MG PO (21:27)
[2023-05-23] MEDS: LORazepam 0.5 MG TABLET PO (21:28)
[2023-05-23] MEDS: oxyCODONE HCl Immed Release 5 MG TABLET PO (21:28)
[2023-05-23] MEDS: guaiFENesin DM 600/30 1 TAB TAB.ER.12H PO (22:18)
[2023-05-24] VITALS: BP 140/64; PULSE 85; RESP 18; TEMP 36.6; O2SAT 94
[2023-05-24 04:00] VITALS: BP 182/80; PULSE 73; RESP 16; TEMP 37; O2SAT 94
[2023-05-24] MEDS: Levothyroxine Sodium 25 MCG TABLET PO (05:21)
[2023-05-24] MEDS: guaiFENesin DM 200/20/10 ML 10 ML SYRUP PO ×2 (05:21→13:42)
[2023-05-24] MEDS: methylPREDNISolone Sod Succ 40 MG/ML VIAL IVPUSH (05:23)
[2023-05-24] MEDS: OXcarbazepine 300 MG TABLET PO ×2 (07:38→14:56)
[2023-05-24] MEDS: Anastrozole 1 MG TABLET PO (07:38)
[2023-05-24] MEDS: atenoloL 50 MG TABLET PO (07:38)
[2023-05-24] MEDS: amLODIPine Besylate 5 MG TABLET PO (07:38)
[2023-05-24] MEDS: Valsartan 160 MG TABLET PO (07:38)
[2023-05-24] MEDS: guaiFENesin DM 600/30 1 TAB TAB.ER.12H PO (07:38)
[2023-05-24] MEDS: Atorvastatin Calcium 80 MG TABLET PO (07:38)
[2023-05-24] MEDS: 0.9 % Sodium Chloride Flush 3 ML SYRINGE IVFLUSH (07:39)
[2023-05-24 07:47] VITALS: BP 201/80; PULSE 74; PULSE 81; RESP 16; TEMP 36; O2SAT 96
[2023-05-24] MEDS: Albuterol/Iprat 2.5/0.5MG 3 ML AMPUL.NEB INHALE ×2 (07:47→11:54)
[2023-05-24 09:32] VITALS: BP 145/80
[2023-05-24] MEDS: Enoxaparin Sodium 40 MG/0.4 ML SYRINGE SUBCUT (11:43)
[2023-05-24] MEDS: Docusate Sodium 100 MG CAPSULE PO (11:48)
[2023-05-24 11:54] VITALS: PULSE 81; RESP 16; O2SAT 98
--- NOTE | 2023-05-24 13:47 | P.DS_ITS ---
DS: Providers Provider Date of Service: 05/24/23 Date of admission: 05/23/23 12:16 Primary care physician: Kelvin Pruett MD DS: Diagnosis Discharge Diagnosis (1) Respiratory syncytial virus (RSV): Status: Acute DS: Summary Hospital Course Hospital Course: Date of Service: 05/23/23 Attending physician on admission: Maycol Cole Chief Complaint: SOB, dyspnea with exertion Pt is an 82-year-old female with a PMH significant for?HTN, HLD, hypothyroidism, hx of left breast cancer s/p lumpectomy 02/2023, moyamoya syndrome, and hemorrhagic CVA in 2000 who presents to the ED with?shortness of breath, cough, fatigue, and difficulty breathing x6 days. Patient states symptoms began on Monday of last week which she developed a cough and some shortness of breath. Symptoms worsened over the next few days to where she had significant shortness of breath, dyspnea upon exertion, fatigue, and constant cough productive of clear to whitish sputum. Reports symptoms worse at night. pt presents to the ED today after daughter found her to be significantly tired, fatigued, and not acting like herself. Pt denies chest pain/pressure, palpitations. No fever, chills, nausea, vomiting, abdominal pain. Denies headache. Of note, pt had left breast lumpectomy on 03/02/2023 and developed cellulitis of left breast approximately 2 months later. Was initially on a 10-day course of cephalexin 500 mg t.i.d. which was extended by another 10 days; pt finished course of abx last night. In the ED pt was patient was afebrile, but tachypneic up to 22, hypertensive up to 169/55, and satting as low as 90% on RA. Labs were significant for testing positive for RSV and lactic acid 2.4, otherwise unremarkable. No leukocytosis. Procalcitonin WNL at 0.04. CXR unremarkable with no evidence of consolidation or acute process. EKG demonstrated sinus rhythm with PACs and no evidence of significant ST elevations or depressions. Pt was treated with DuoNebs, Solu- Medrol, Mag sulfate, and ceftriaxone for empiric pneumonia coverage. Pt will be admitted to the hospital under observation for treatment and further evaluation of acute respiratory distress in the setting RSV infection. Hospital course: 82-year-old female with a PMH significant for?HTN, HLD, hypothyroidism, hx of left breast cancer s/p lumpectomy 02/2023, moyamoya syndrome, and hemorrhagic CVA in 2000 who presents to the ED with?shortness of breath, cough, fatigue, and difficulty breathing x6 days. Pt will be admitted to the hospital under observation for treatment and further evaluation of acute respiratory distress in the setting RSV infection. Acute respiratory distress in the setting of RSV infection, admitted to medical floor treated with DuoNebs, IV Solu-Medrol and Mucinex symptoms of shortness of breath and dyspnea on exertion improved therefore being discharged home on short course of prednisone, cough medications, albuterol MDI, recommended rest and plenty of fluids. Noted to have acute lactic acidosis likely secondary to respiratory distress and use of updraft not sepsis. History of Left breast cellulitis patient recently completed 20-day course of cephalexin 500 mg t.i.d. noted to have no recurrent episodes of cellulitis recommend outpatient follow-up with Dr. Stout. HTN stable blood pressures, Continue amlodipine, atenolol, irbesartan HLD Continue statin Hx of breast cancer Continue anastrozole Hypothyroidism Continue levothyroxine Mood disorder Continue mirtazapine. Time Attestation Discharge coordination time: Greater than 30 minutes Quality: Safe Use of Opioids Does Pt have an Active Cancer Diagnosis on the Problem List?: No Quality: Stroke Does the patient have a stroke diagnosis?: No Physical Exam Vital Signs: Vital Signs: Last Vital Signs Temp 96.8 F 05/24/23 07:47 Pulse 81 05/24/23 11:54 Resp 16 05/24/23 11:54 BP 145/80 H 05/24/23 09:32 Pulse Ox 96 05/24/23 07:47 O2 Del Method Room Air 05/24/23 07:47 BMI result Body Mass Index 29.0 Const: Other: General awake alert x3, in no acute distress. Neck no JVD. CVS regular rate rhythm, Left breast no tenderness .warmth or fluctuation noted Respiratory lungs occasional wheeze, no respiratory distress, no rales Gastrointestinal abdomen soft, non tender, bowel sounds audible, no no guarding , no rigidity. Extremities no edema. Neuro nonfocal Skin no rash Psych appropriate affect DS: Data Data Completed and Pending Labs on day of discharge: Laboratory Results - last 24 hr 05/23/23 05/23/23 15:06 17:22 Lactic Acid 3.9 H* Lactic Acid F/U @ 2Hr 3.6 H* Preliminary micro results at discharge 05/23/23 10:47 Blood Culture - Preliminary Blood - Venous No growth after 24 hours. 05/23/23 10:22 Blood Culture - Preliminary Blood - Venous No growth after 24 hours. Discharge Plan Discharge Anticipated Discharge Date/Time: 05/24/23 13:37 Patient Disposition: Home, Self-Care Discharge Diagnosis: Acute respiratory distress due to RSV Elevated waited lactic acid Referrals: Kelvin Pruett MD [Primary Care Provider] - 1 Week Discharge Medications: New dextromethorphan-guaifenesin 10-100 mg/5 mL Syrup 10 ml PO Q6H PRN (Reason: Cough) Qty: 237 0RF ascorbic acid (vitamin C) [Vitamin C] 500 mg tablet 500 mg PO DAILY Qty: 30 0RF prednisone 20 mg tablet 20 mg PO DAILY Qty: 4 0RF albuterol sulfate 90 mcg/actuation HFA aerosol inhaler 2 puff inhalation Q4-6H PRN (Reason: wheezing/sob) Qty: 8.5 0RF famotidine [Pepcid] 20 mg tablet 20 mg PO DAILY Qty: 7 0RF benzonatate 100 mg capsule 100 mg PO TID PRN (Reason: cough) Qty: 30 0RF Continued lorazepam 0.5 mg tablet 0.5 mg PO BID PRN (Reason: anxiety) 30 Days Qty: 60 0RF amlodipine 5 mg tablet 5 mg PO DAILY Qty: 90 3RF atorvastatin 80 mg tablet 80 mg PO DAILY Qty: 90 3RF atenolol 50 mg tablet 50 mg PO DAILY Qty: 90 3RF irbesartan 300 mg tablet 300 mg PO DAILY Qty: 90 3RF mirtazapine 15 mg tablet 15 mg PO BEDTIME 90 Days Qty: 90 1RF oxycodone-acetaminophen 5-325 mg tablet 1 tab PO Q4-6H PRN (Reason: pain) Qty: 30 0RF Rx Instructions: Partial Fill upon patient request. oxcarbazepine 300 mg tablet 300 mg PO TID anastrozole 1 mg tablet 1 mg PO DAILY senna 8.6 mg capsule 8.6 mg PO BEDTIME PRN (Reason: constipation) 90 Days Qty: 90 3RF levothyroxine 25 mcg tablet 25 mcg PO DAILY 15 Days Qty: 15 0RF Rx Instructions: Take on an empty stomach, first thing in the morning, with water. Do not eat or drink anything else for 30 minutes afterwards Discharge Orders: Discharge Order (Routine); Ordered 05/24/23 Ordered By: Maycol Cole Diet: Advance to usual diet Activity on Discharge: As tolerated Stand Alone Forms: Patient Portal Discharge page Care Plan Goals: RS we infection causing shortness of breath and cough, rest take vitamin-C, cough medication, prednisone as ordered and use albuterol MDI for shortness of breath and wheezing. Take Pepcid 20 mg daily for 1 week to avoid acidity with prednisone Return to check with recurrent or worsening symptoms of shortness of breath, high-grade fevers, worsening cough, headache, dizziness or lightheadedness. Health Concerns: Take all home medications as before Plan of Treatment: Outpatient follow-up with primary care physician call for appointment. Assessment: As above Discharge Date/Time: 05/24/23 15:26
--- NOTE | 2023-05-24 13:50 | MHC.CM.PN ---
pt dcd home no skilled services needed
[2023-05-24] MEDS: Albuterol Sulfate 90 MCG 8 GM INHALER 2 PUFF INHALE (14:56)
== END 2023-05-24 15:26 | disposition home or self-care (01) ==
LOC: HO.ED 11:23 → HO.EDOVER 12:57 → HO.S3 13:46
PROVIDERS: Physician Assistant; Admitting Provider Student in an Organized Health Care Education/Training Program; Emergency Provider Emergency Medicine; PCP Internal Medicine; Visit Provider Hospitalist
DX: J12.1 Respiratory syncytial virus pneumonia (principal); R05.9 Cough, unspecified; I10 Essential (primary) hypertension; E03.9 Hypothyroidism, unspecified; R06.02 Shortness of breath; I67.5 Moyamoya disease; G40.909 Epilepsy, unspecified, not intractable, without status epilepticus; R53.83 Other fatigue; N61.0 Mastitis without abscess; F39 Unspecified mood [affective] disorder; E78.5 Hyperlipidemia, unspecified; Z86.73 Personal history of transient ischemic attack (TIA), and cerebral infarction without residual deficits; Z20.828 Contact with and (suspected) exposure to other viral communicable diseases; Z20.822 Contact with and (suspected) exposure to COVID-19; Z85.3 Personal history of malignant neoplasm of breast
CPT/HCPCS: 0241U; 36415; 71046; 80053; 83605; 83735; 83880; 84145; 84484; 85025; 87040; 87502; 87635; 93005; 94640; 96365; 96366; 96368; 96372; 96375; 96376; 99221; 99285; J0696; J1650; J2920; J2930; J3475

== ENCOUNTER → 2023-05-23 10:05 | Outpatient (BNV) | payer MEDICARE, SELFPAY | PROVIDERS: Admitting Provider Student in an Organized Health Care Education/Training Program; Emergency Provider Emergency Medicine; PCP Internal Medicine; Visit Provider Internal Medicine | DX: I49.1 Atrial premature depolarization (principal) | CPT/HCPCS: 93010 ==

== ENCOUNTER → 2023-05-23 12:16 | Outpatient (BNV) | payer MEDICARE, SELFPAY | PROVIDERS: Admitting Provider Student in an Organized Health Care Education/Training Program; Emergency Provider Emergency Medicine; PCP Internal Medicine; Visit Provider Student in an Organized Health Care Education/Training Program | DX: B33.8 Other specified viral diseases (principal); R06.03 Acute respiratory distress | CPT/HCPCS: 99222; 99239 ==

== ENCOUNTER 2023-07-31 07:06 | Outpatient (REF) | payer MEDICARE, SELFPAY ==
[2023-07-31 11:09] LABS: MANUAL DIFF FLAG NO
[2023-07-31 11:25] LABS: Basophils Percent Auto 0.4 % (0-2); Eosinophils Absolute Auto 0.1 X10*3/uL (0.0-0.4); Eosinophils Percent Auto 1.9 % (0-4); Hematocrit 35.6 % (37.0-47.0); Hemoglobin 11.6 g/dl (12.0-16.0); Imm Gran Abs Auto 0.02 X10*3/uL (0.00-0.03); Imm Gran Pct Auto 0.3 % (0.0-0.4); Lymphocytes Absolute Auto 1.7 X10*3/uL (1.2-4.9); Lymphocytes Percent Auto 22.9 % (20-40); Mean Corpuscular HGB Conc 32.6 g/dl (31.0-35.0); Mean Corpuscular Hemoglobin 30.4 pg (27.0-33.0); Mean Corpuscular Volume 93.4 fL (80.0-98.0); Mean Platelet Volume 10.5 fL (9.4-12.3); Monocytes Absolute Auto 0.5 X10*3/uL (0.1-1.2); Monocytes Percent Auto 7.1 % (2-11); Neutrophils Absolute Auto 4.9 x10*3/uL (2.0-8.3); Neutrophils Percent Auto 67.4 % (45-73); Platelet Count 243 X10*3/uL (160-400); Red Blood Count 3.81 X10*6/uL (4.20-5.50); Red Cell Distribution Width 13.3 % (11.0-16.0); White Blood Count 7.3 X10*3/uL (4.8-10.8)
[2023-07-31 11:35] LABS: Appearance Urine Clear; Color Urine Yellow; Glucose Urine UA Negative (Negative); Leukocyte Esterase Urine Trace (Negative); Nitrite Urine Negative (Negative); UMIC TRIGGER UACC YES; Urine Blood Negative (Negative); Urine Ketones Negative (Negative); Urine Protein Negative (Neg-Trace)
[2023-07-31 11:41] LABS: Bacteria Urine None Seen (None Seen); Hyaline Casts Urine 0-2 /LPF (0-2); RBC Urine 0-2 /HPF (0-2); Squamous Epithelial Cell Urine 0-2 /HPF (0-2); WBC Urine 0-5 /HPF (0-5)
[2023-07-31 12:16] LABS: Alanine Aminotransferase 15 U/L (0-31); Alkaline Phosphatase 104 U/L (39-117); Anion Gap 11 (12-20); Aspartate Amino Transferase 18 U/L (5-31); Bilirubin Total 0.3 mg/dL (0.0-1.0); Blood Urea Nitrogen 17 mg/dL (9-16); Calcium 9.5 mg/dL (8.4-10.2); Carbon Dioxide 28 mmol/L (22-29); Chloride 107 mmol/L (96-108); Cholesterol 175 mg/dL (<200); Estimated Glomerular Filt Rate > 60; Glucose Fasting 102 mg/dL (60-99); HDL Cholesterol 49 mg/dL (>40); LDL Cholesterol Calculated 100 mg/dL (<100); Potassium 4.8 mmol/L (3.3-5.1); Sodium 141 mmol/L (135-145); Total Protein 7.1 g/dL (6.5-8.0); Triglycerides 133 mg/dL (<150)
[2023-07-31 12:19] LABS: Free T4 (Free Thyroxine) 0.63 ng/dL (0.71-1.85); Thyroid Stimulating Hormone 2.47 uIU/mL (0.32-4.0); Vitamin D 25-OH Total 50.5 ng/mL (>30)
== END 2023-07-31 07:07 | disposition home or self-care (01) ==
LOC: HO.HMGCLDS 07:06
PROVIDERS: PCP Internal Medicine; Visit Provider Internal Medicine
DX: E03.9 Hypothyroidism, unspecified (principal); E78.00 Pure hypercholesterolemia, unspecified; E55.9 Vitamin D deficiency, unspecified; I10 Essential (primary) hypertension
CPT/HCPCS: 36415; 80053; 80061; 81001; 82306; 84439; 84443; 85025

== ENCOUNTER 2023-08-03 11:29 | Outpatient (AMB) | payer MEDICARE, SELFPAY ==
[2023-08-03 11:40] VITALS: BP 116/58; PULSE 77; O2SAT 95; BMI 29.4
--- NOTE | 2023-08-03 11:40 | A.OFFPC_ITS ---
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 Required: No Accompanied by: Self / Same As Patient Allergies sertraline [SERTRALINE] Allergy (Severe, Verified 08/03/23 12:00) DROPPED SODIUM LEVEL, BP increase Sodium drop aspirin [ASPIRIN] Allergy (Intermediate, Verified 08/03/23 12:00) RISK OF BLEDING NSAIDS (Non-Steroidal Anti-Inflamma Allergy (Unknown, Verified 08/03/23 12:00) risk of bleeding phenytoin [Dilantin] Allergy (Unknown, Verified 08/03/23 12:00) unknown Medication List - Last Reconciled 08/03/23 by Kelvin Pruett MD albuterol sulfate 90 mcg/actuation 2 puffs inhalation Q4-6H PRN amlodipine 5 mg PO DAILY anastrozole 1 mg PO DAILY 90 days ascorbic acid (vitamin C) (Vitamin C) 500 mg PO DAILY atenolol 50 mg PO DAILY atorvastatin 80 mg PO DAILY benzonatate 100 mg PO TID PRN dextromethorphan-guaifenesin 10-100 mg/5 mL 10 mL PO Q6H PRN famotidine (Pepcid) 20 mg PO DAILY irbesartan 300 mg PO DAILY levothyroxine 25 mcg PO DAILY 15 days lorazepam 0.5 mg PO BID PRN 30 days mirtazapine 15 mg PO BEDTIME 90 days oxcarbazepine 300 mg PO TID oxycodone-acetaminophen 5-325 mg 1 tab PO Q4-6H PRN prednisone 20 mg PO DAILY sennosides (senna) 8.6 mg PO BEDTIME PRN 90 days Tobacco use date assessed: 08/03/23 Fall risk assessment: No Falls in past year Last assessed Fall Risk: 08/03/23 Dental Screening Dental Screen Date: 08/03/23 Did you have a dental visit in the last 12 months?: No Did you have a dental problem in the last 6 months where you did not have access to dental care?: No Was dental information given to patient?: No HPI 3mth f/u HPI Details Patient comes in today for her follow up visit States that she feels okay but reports increased fatigue for the past few weeks - states that for unknown reasons, she feels exhausted all the time lately She denies any headaches or dizziness Denies any chest pains, no increased SOB No nausea/vomiting, no abdominal pain No change in bowel habits noted States that her neck pain (chronic) and joint pains remain adequately controlled on her current Rx Had her follow up labs done a few days ago - to discuss her results [facility] Medical History (Updated 08/04/23 @ 04:49 by Kelvin Pruett MD) Osteopenia Constipation Acquired hypothyroidism Overweight (BMI 25.0-29.9) Cataract Seizures Stroke (~2000) Ash ash disease (~2000) Urinary frequency Allergic rhinitis Degenerative disc disease, cervical Neck pain Depression Anxiety Insomnia Epilepsy Obesity (BMI 30-39.9) Osteoarthritis Benign essential hypertension Pure hypercholesterolemia Rib pain on right side Left shoulder pain Recurrent dry cough Pain of right scapula Right-sided thoracic back pain Surgical History Hx of colonoscopy History of kidney surgery Status post cervical disc replacement History of knee replacement procedure of right knee Hx of knee surgery Family History Father Chronic mental illness Mother Hypertension Other Mental health problem Social History Housing: House Alcohol intake: current Alcohol intake frequency: holidays/special occasions only Alcohol type: wine Patient Tobacco Use Status: Former Tobacco user Tobacco use type: Cigarette e-Cigarette/Vaping Use: Never Used Second Hand Smoke Exposure: No Advance Directives Date on File: 05/23/23 service: No Current occupational status: retired Cognitive needs: No Hearing needs: No Vision needs: No Questionnaire PHQ-9 Over the last 2 weeks, how often have you been bothered by any of the following problems? 1. Little interest or pleasure in doing things: not at all 2. Feeling down, depressed, or hopeless: not at all 3. Trouble falling or staying asleep, or sleeping too much: not at all 4. Feeling tired or having little energy: not at all 5. Poor appetite or overeating: not at all 6. Feeling bad about yourself - or that you are a failure or have let yourself or your family down: not at all 7. Trouble concentrating on things, such as reading the newspaper or watching television: not at all 8. Moving or speaking so slowly that other people could have noticed. Or the opposite - being so fidgety or restless that you have been moving around a lot more than usual: not at all 9. Thoughts that you would be better off or of hurting yourself in some way: not at all Total score: 0 Depression Screening Interpretation: Negative Depression Screening Done: Yes 88088 - PHQ-9 Billing: Yes Source: Developed by Drs. Michoacano Hanson, Dayanna Car, Javier Spain and colleagues, with an educational zach from [employer]. Thrive Questionnaire Date Thrive assessed: 08/03/23 I am a: Patient What is your living situation today?: I have a steady place to live Within the past 12 months, did the food you bought not last and you didn't have the money to get more?: Never true Within the past 12 months, did you worry whether your food would run out before you got money to buy more?: Never true Do you have trouble paying for medicines?: No Do you have trouble getting transportation to medical appointments?: No Do you have trouble paying your heating and electricity bill?: No Do you have trouble taking care of your child, family member or friend?: No Do you have trouble with day-to-day activities such as bathing, preparing meals, shopping, managing finances, etc.?: No Are you currently unemployed and looking for a job?: No Are you interested in more education?: No Please select the resources that you would like help with: None Currently or been in a relationship where the following occur: no concerns reported THRIVE Score: 0 AUDIT C Alcohol Use Questionnaire (AUDIT-C) 1. How often do you have a drink containing alcohol?: Never 3. How often do you have six or more drinks on one occasion?: Never Total Score: 0 Score Reviewed/Action Taken: Yes FEI-7 AMB Questionnaire FEI-7 Date FEI - 7 assessed: 08/03/23 Feeling nervous, anxious, or on edge: 0 = Not at all Not being able to stop or control worryin = Not at all Worrying too much about different things: 0 = Not at all Trouble relaxin = Not at all Being so restless that it is hard to sit still: 0 = Not at all Becoming easily annoyed or irritable: 0 = Not at all Feeling afraid as if something awful might happen: 0 = Not at all Total FEI-7 score (0-4 normal; 5-9 mild; 10-14 moderate; 15-21 severe): 0 Source: Developed by Drs. Michoacano Hanson, Dayanna Car, Javier Spain and colleagues, with an educational zach from [employer]. Review of Systems Const Denies chills, Reports fatigue (increased ), Denies fever(s) and Denies headache(s) ENT Denies dysphagia, Denies dizziness, Denies otalgia, Denies headache(s), Reports neck pain (chronic), Denies odynophagia, Denies sinus pain and Denies sore throat Card Denies chest pain, Denies palpitations and Denies dyspnea Resp Denies cough and Denies dyspnea GI Denies abdominal pain, Denies constipation, Denies dysphagia, Denies heartburn, Denies diarrhea, Denies nausea, Denies odynophagia and Denies vomiting Denies difficulty voiding, Denies nocturia, Denies dysuria and Denies urinary urgency Musc Reports back pain, Reports arthralgias (left knee ) and Reports neck pain (chronic) Skin/Breast Denies rash Neuro Denies dizziness and Denies headache(s) Endo Reports fatigue (increased ) and Denies palpitations Physical exam (Primary Care) Vital Signs: Last Vital Signs Pulse 77 08/03/23 11:40 BP 116/70 08/03/23 12:04 Pulse Ox 95 08/03/23 11:40 Oxygen Delivery Method Room Air 08/03/23 11:40 BMI result Body Mass Index 29.4 Tobacco/Smoking Status: Tobacco use Status Tobacco use date assessed 08/03/23 08/03/23 11:42 Patient Tobacco Use Status Former Tobacco user 08/03/23 11:42 Tobacco use type Cigarette 08/03/23 11:42 e-Cigarette/Vaping Use Never Used 08/03/23 11:42 PHQ-9: PHQ-9 Score PHQ-9: Total score 0 08/03/23 12:03 Depression Screening Interpretation: Negative Thrive Assessment: Date of Thrive Assessment Date Thrive assessed 08/03/23 08/03/23 11:42 Currently or been in a relationship where the following occur: no concerns reported Const General: no acute distress and alert HENMT Ears: TM's normal bilaterally and EAC's normal Throat: Yes posterior oropharynx normal and Yes tonsils normal (no TP congestion noted) Neck Neck: Yes no lymphadenopathy and Yes tender Resp Auscultation: clear to auscultation bilaterally, no rales and no wheezes Cardio Rate: regular rate Rhythm: regular rhythm Heart sounds: no murmurs GI Palpation (GI): Soft to palpation and nontender Auscultation: normal bowel sounds General: Yes no CVA tenderness Back/Spine/Pelvis Back: no CVA tenderness Cervical Spine: Cervical spine tenderness Thoracic/Lumbar Spine: lumbar spinal tenderness Skin Rashes: no rashes Extrem General: Yes no clubbing, cyanosis or edema Left lower extremity: knee Details: tenderness and crepitus; no swelling Results Reviewed Results Reviewed: Laboratory Tests 07/31/23 07/31/23 07:13 07:15 WBC 7.3 Hgb 11.6 L Hct 35.6 L Plt Count 243 Sodium 141 Potassium 4.8 Creatinine 0.79 Estimated GFR > 60 Fasting Glucose 102 H Calcium 9.5 AST 18 ALT 15 Cholesterol 175 LDL Cholesterol, Calc 100 H HDL Cholesterol 49 25-OH Vitamin D Total 50.5 TSH 2.47 Free T4 0.63 L Ur Specific [place] 1.020 Urine Protein Negative Urine Glucose (UA) Negative Urine Blood Negative Urine Nitrite Negative Ur Leukocyte Esterase Trace H Assessment and Plan Assessment & Plan (1) Pure hypercholesterolemia: Code(s): E78.00 - Pure hypercholesterolemia, unspecified Plan: Results of her labs done a few days ago reviewed and discussed with patient Reinforced low-cholesterol diet Continue Atorvastatin 80 mg QD Will recheck her labs and fasting lipids in 3 months for follow-up (2) Benign essential hypertension: Code(s): I10 - Essential (primary) hypertension Plan: Reinforced low-sodium diet - goal is systolic BP of at least 140 to 150 mm or less Continue Atenolol 50 mg QD, Amlodipine 5 mg QD and Irbesartan 300 mg QD (3) Degenerative disc disease, cervical: Comment: S/P anterior fusion of C5-C7 in 2011 Code(s): M50.30 - Other cervical disc degeneration, unspecified cervical region Plan: States that her neck pain has been manageable lately Cervical spine x-rays done in September 2020 revealed stable post-surgical changes and some mild degenerative changes in the cervical spine Will consider referral again to physical therapy if her neck pain flares up (4) Osteoarthritis: Comment: Involving multiple joints, including both shoulders and the right knee Code(s): M19.90 - Unspecified osteoarthritis, unspecified site Qualifiers: Osteoarthritis location: multiple joints Osteoarthritis type: primary Qualified Code(s): M89.49 - Other hypertrophic osteoarthropathy, multiple sites Plan: Involving multiple joints Shoulder x-rays in May 2020 revealed (+) degenerative changes S/P right knee arthroplasty in 2015 with significant improvement of her symptoms; has been experiencing increasing left knee pain for the past couple of years Had injections into her left knee a couple of years ago without any significant relief and states that she was seriously considering knee replacement surgery on her left knee for a while but her knee pain appears to have subsided lately Continue Oxycodone 5 mg every 6 hours as needed for severe pain; was also taking some Celecoxib 200 mg QD PRN for a while but she has not taken it in the past few months Used to follow up with orthopedics but has not been seen in a while - she was referred back to orthopedics for her recently increasing left knee pain back in November 2022 but placed her orthopedics appt on hold when she was diagnosed with breast cancer a couple of months later (5) Breast cancer, left: Comment: 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; stage I ([id number]), grade 1, ER positive, WI positive, HER2 negative - diagnosed in January 2023 Code(s): C50.912 - Malignant neoplasm of unspecified site of left female breast Qualifiers: Breast location: unspecified site of breast Estrogen receptor status: positive Patient sex: female Qualified Code(s): C50.912 - Malignant neoplasm of unspecified site of left female breast; Z17.0 - Estrogen receptor positive status [ER+] Plan: Was diagnosed in January 2023 with invasive lobular carcinoma of the left breast after her routine mammogram revealed (+) calcifications and Bx done came back positive for breast cancer She has since undergone lumpectomy with negative margins She was referred to hematology/oncology and radiation oncology at [facility] (per request) and was seen by oncology a few months ago and started on Letrozole 1 mg QD, which she was advised to continue on for at least 5 years She was seen by radiation oncology at [facility] a couple of months ago for consultation as to whether she will require radiation therapy or not This was subsequently delayed when she developed RSV over the recent holidays and by the time she got back to Radiation Oncology, was advised that she was no longer in the window for radiation treatment to benefit her She will need to continue with annual mammography as well Follow up with oncology as scheduled (6) Acquired hypothyroidism: Code(s): E03.9 - Hypothyroidism, unspecified Plan: Her free T4 level is still low on her recent labs although her TSH remains normal Will increase her Levothyroxine to 50 mcg QD Will recheck her TFTs in 3 months for follow up (7) Osteopenia: Code(s): M85.80 - Other specified disorders of bone density and structure, unspecified site Qualifiers: Osteopenia location: unspecified Qualified Code(s): M85.80 - Other specified disorders of bone density and structure, unspecified site Plan: Her recent BMD done at [facility] on 07/14/2023 revealed (+) osteopenia with a T- score of -1.8 at the lumbar spine, -0.8 the left hip and -0.9 at the left femoral neck She is advised to continue taking her daily vitamin-D and calcium supplements Fall precautions reinforced (8) Epilepsy: Code(s): G40.909 - Epilepsy, unspecified, not intractable, without status epilepticus Qualifiers: Epilepsy type: unspecified Intractability: not intractable Status epilepticus: without status epilepticus Qualified Code(s): G40.909 - Epilepsy, unspecified, not intractable, without status epilepticus Plan: Stable with no recent recurrence Continue Trileptal 300 mg 1 tablet Q AM and 2 tablets Q PM Follow up with neurology as scheduled (9) Constipation: Code(s): K59.00 - Constipation, unspecified Qualifiers: Constipation type: unspecified constipation type Qualified Code(s): K59.00 - Constipation, unspecified Plan: Encouraged increased oral fluids and dietary fiber Continue Senna 8.6 mg Q HS PRN Have advised patient that her opioid Rx may also be contributing to her constipation (10) Overactive bladder: Code(s): N32.81 - Overactive bladder Plan: Continue Myrbetriq ER 25 mg QD Follow up with urology as scheduled (11) Insomnia: Code(s): G47.00 - Insomnia, unspecified Qualifiers: Insomnia type: unspecified Qualified Code(s): G47.00 - Insomnia, unspecified Plan: Sleep hygiene reinforced Continue Trazodone 100 mg 1.5 tablets (150 mg) Q HS PRN (12) Anxiety: Code(s): F41.9 - Anxiety disorder, unspecified Plan: Continue Lorazepam 0.5 mg 1 to 2 tablets once a day at bedtime as needed (13) Depression: Code(s): F32.9 - Major depressive disorder, single episode, unspecified Qualifiers: Depression Type: unspecified Qualified Code(s): F32.9 - Major depressive disorder, single episode, unspecified Plan: Continue Mirtazapine 15 mg Q HS (14) Overweight (BMI 25.0-29.9): Code(s): E66.3 - Overweight Plan: Reinforced diet/exercise as tolerated/lose weight, although due to her age, comorbidites and physical condition/issues, her activity and exercise tolerance is very limited Plan Follow up in 3 months Orders: Orders Comprehensive Wells. Panel Fast 3 Months E78.00 - Pure hypercholesterolemia, unspecified Free T4 (Free Thyroxine) 3 Months E03.9 - Hypothyroidism, unspecified Complete Blood Count Auto Diff 3 Months D64.9 - Anemia, unspecified Lipid Panel 3 Months E78.00 - Pure hypercholesterolemia, unspecified Thyroid Stimulating Hormone 3 Months E03.9 - Hypothyroidism, unspecified Medications: Changed From levothyroxine Take on an empty stomach, first thing in the morning, with water. Do not eat or drink anything else for 30 minutes afterwards 25 mcg PO DAILY 15 days 15 tabs 0RF E03.9 - Hypothyroidism, unspecified To levothyroxine Take on an empty stomach, first thing in the morning, with water. Do not eat or drink anything else for 30 minutes afterwards 50 mcg PO DAILY 90 days 90 tabs 1RF E03.9 - Hypothyroidism, unspecified Refilled anastrozole 1 mg PO DAILY 90 days 90 tabs 1RF Coding Level of Care Code Est Pt Level 4 (06157) Diagnoses Pure hypercholesterolemia E78.00 Benign essential hypertension I10 Degenerative disc disease, cervical M50.30 Primary osteoarthritis involving multiple joints M89.49 Osteoarthritis location: multiple joints Osteoarthritis type: primary Malignant neoplasm of left breast in female, estrogen receptor positive, unspecified site of breast C50.912; Z17.0 Breast location: unspecified site of breast Estrogen receptor status: positive Patient sex: female Acquired hypothyroidism E03.9 Osteopenia, unspecified location M85.80 Osteopenia location: unspecified Nonintractable epilepsy without status epilepticus, unspecified epilepsy type G40.909 Epilepsy type: unspecified Intractability: not intractable Status epilepticus: without status epilepticus Constipation, unspecified constipation type K59.00 Constipation type: unspecified constipation type Overactive bladder N32.81 Insomnia, unspecified type G47.00 Insomnia type: unspecified Anxiety F41.9 Depression, unspecified depression type F32.9 Depression Type: unspecified Overweight (BMI 25.0-29.9) E66.3
[2023-08-03 12:04] VITALS: BP 116/70
== END 2023-08-03 12:14 | disposition home or self-care (01) ==
PROVIDERS: PCP Internal Medicine; Visit Provider Internal Medicine
DX: E78.00 Pure hypercholesterolemia, unspecified (principal); I10 Essential (primary) hypertension; C50.912 Malignant neoplasm of unspecified site of left female breast; Z17.0 Estrogen receptor positive status [ER+]; E03.9 Hypothyroidism, unspecified; M85.80 Other specified disorders of bone density and structure, unspecified site; G40.909 Epilepsy, unspecified, not intractable, without status epilepticus; K59.00 Constipation, unspecified; N32.81 Overactive bladder; G47.00 Insomnia, unspecified; F41.9 Anxiety disorder, unspecified; F32.9 Major depressive disorder, single episode, unspecified
CPT/HCPCS: 99214

== ENCOUNTER 2023-10-02 07:18 | Outpatient (REF) | payer MEDICARE, SELFPAY ==
--- NOTE | ~2023-10-02 | XR_ITS ---
EXAMINATION: XR KNEE, LEFT XR AP UPRIGHT BOTH KNEES CLINICAL INFORMATION: Pain in the knee. COMPARISON: X-rays of the knees November 2020. TECHNIQUE: AP upright both knees with additional lateral and patella view of the left knee. FINDINGS: Left knee: There are prominent marginal osteophytes and joint space narrowing indicative of [id number] osteoarthritis of the medial compartment which has progressed compared to prior. Lateral compartment: Marginal osteophytes indicative of mild arthrosis. Patellofemoral compartment: Marginal osteophytes and possible joint space narrowing indicative of [id number] osteoarthritis probably unchanged. Arterial calcification noted. Right knee limited AP upright: There is a total knee arthroplasty in place. The components are in the usual position and are unchanged. There is no periprosthetic fracture or surrounding abnormal lucency. The surrounding soft tissues are normal. XR/XR knee LT 3V IMPRESSION: Right knee limited: Total knee arthroplasty without change or evidence of complication. Left knee: Tricompartmental osteoarthritis with degenerative changes most prominent in the medial compartment being moderate to severe. Degenerative changes slightly progressed compared with November 2020.
== END 2023-10-02 07:19 | disposition home or self-care (01) ==
LOC: HO.HOSX 07:18
PROVIDERS: Visit Provider Orthopaedic Surgery
DX: M17.12 Unilateral primary osteoarthritis, left knee (principal); Z96.651 Presence of right artificial knee joint
CPT/HCPCS: 73562; 99212

== ENCOUNTER 2023-10-02 10:07 | Outpatient (AMB) | payer MEDICARE, SELFPAY ==
[2023-10-02 10:18] VITALS: BMI 31.4
--- NOTE | 2023-10-02 10:18 | MHC.OFFVIS ---
Vital Signs 10/02/23 10:18 Height 5 ft 3 in Weight 177 lb BMI 31.4 Intake Visit Reasons: ov- left knee OA Intake Note: Jennie is an 83 year old female who presents today for a follow up of her Left Knee OA. At her last appointment on 03/22/21 we injected the left knee with Durolane. Patient reports more pain , 7 on a 0-10 pain scale. States she cancelled surgery because her knee was doing better but it is acting up again. 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 She had right knee replacement done by me approximately 7 years ago. She had a left knee replacement scheduled in 2021 but canceled as she was feeling better at the time. She comes in today with her daughter. She describes difficulty with ambulation. She feels that her left knee limits her ability to walk regularly. She has had injections in the past which have been minimally helpful. Her right knee is doing well but she does describe having difficulty postoperatively. She describes extensive pain and a slow and protracted recovery. Ultimately, however, her right knee feels very stable and pain-free. [facility] Medical History (Updated 10/02/23 @ 12:37 by Emory No MD) Osteopenia Constipation Acquired hypothyroidism Overweight (BMI 25.0-29.9) Cataract Seizures Stroke (~2000) Ash ash disease (~2000) Urinary frequency Allergic rhinitis Degenerative disc disease, cervical Neck pain Depression Anxiety Insomnia Epilepsy Obesity (BMI 30-39.9) Osteoarthritis Benign essential hypertension Pure hypercholesterolemia Rib pain on right side Left shoulder pain Recurrent dry cough Pain of right scapula Right-sided thoracic back pain Surgical History (Updated 10/02/23 @ 10:25 by PHOENIX Neves) H/O breast surgery Hx of colonoscopy History of kidney surgery Status post cervical disc replacement History of knee replacement procedure of right knee Hx of knee surgery Family History Father Chronic mental illness Mother Hypertension Other Mental health problem Social History Housing: House Alcohol intake: current Alcohol intake frequency: holidays/special occasions only Alcohol type: wine Patient Tobacco Use Status: Former Tobacco user Tobacco use type: Cigarette e-Cigarette/Vaping Use: Never Used Second Hand Smoke Exposure: No Advance Directives Date on File: 05/23/23 service: No Current occupational status: retired Cognitive needs: No Hearing needs: No Vision needs: No Physical Exam Vital Signs: BMI result Body Mass Index 31.4 Const General: cooperative, healthy appearing, no acute distress, well developed and alert HEENT Head: Yes normal to inspection, Yes normocephalic and Yes atraumatic Mouth: moist mucous membranes Eyes General: appearance normal, both eyes and all related structures EOM: EOMs intact bilaterally Chest Other: no audible wheezing. Resp Other: No audible wheezing Effort & Inspection: normal respiratory effort Cardio Other: Radial pulse palpable with no rythmic abnormalities Back/Spine/Pelvis Cervical Spine: normal cervical lordosis Skin General skin exam: no rashes or lesions noted Neuro General: no focal motor deficits Extrem Other: Left knee with varus alignment and varus thrust on gait. Sharp tenderness palpation medial joint line. Psych Appearance: grossly normal and well kempt Mental Status: mental status grossly normal Speech and movement: Normal speech and movement present Affect: normal affect Attitude: cooperative Results Reviewed Results Reviewed: I personally reviewed relevant radiographs. Varus pattern left knee osteoarthritis, severe Right total knee arthroplasty in expected post operative position with no hardware complications or evidence of loosening Assessment & Plan Assessment & Plan (1) Arthritis of left knee: Code(s): M17.12 - Unilateral primary osteoarthritis, left knee Category: Medical Plan This is an 83-year-old patient with left knee osteoarthritis. She has previously been scheduled for knee replacement but that was postponed mostly, it sounds like after talking to her today, due to anxiety. She describes having a difficult time after her 1st knee replacement. I discussed this with her. She does seem limited and is unable to be as active as she would like and that conservative treatments have failed. Given this I recommend left knee replacement. I discussed with her some of the risks, benefits and alternatives. She would like to go to rehab afterward and I think it will be important that anesthesia discuss perioperative nerve blocks for her. She does also appear to have some narcotic tolerance as she describes having had to use high doses of narcotics postoperatively in the past. Orders: Orders XR knee standing BI Today M25.569 - Pain in unspecified knee Coding Level of Care Code Est Pt Level 4 (88830) Diagnoses Arthritis of left knee M17.12
== END 2023-10-02 13:03 | disposition home or self-care (01) ==
PROVIDERS: PCP Internal Medicine; Visit Provider Orthopaedic Surgery
DX: M17.12 Unilateral primary osteoarthritis, left knee (principal)
CPT/HCPCS: 99214

== ENCOUNTER 2023-11-03 14:19 | Outpatient (AMB) | payer MEDICARE, SELFPAY ==
[2023-11-03 14:23] VITALS: BP 112/62; PULSE 70; O2SAT 98; BMI 28.9
--- NOTE | 2023-11-03 14:23 | A.OFFPC_ITS ---
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: No Customer Advocacy Manager: Not Required per policy Accompanied by: Self / Same As Patient Allergies sertraline [SERTRALINE] Allergy (Severe, Verified 11/03/23 15:06) DROPPED SODIUM LEVEL, BP increase Sodium drop aspirin [ASPIRIN] Allergy (Intermediate, Verified 11/03/23 15:06) RISK OF BLEDING NSAIDS (Non-Steroidal Anti-Inflamma Allergy (Unknown, Verified 11/03/23 15:06) risk of bleeding phenytoin [Dilantin] Allergy (Unknown, Verified 11/03/23 15:06) unknown Medication List - Last Reconciled 11/03/23 by Kelvin Pruett MD albuterol sulfate 90 mcg/actuation 2 puffs inhalation Q4-6H PRN amlodipine 5 mg PO DAILY anastrozole 1 mg PO DAILY 90 days ascorbic acid (vitamin C) (Vitamin C) 500 mg PO DAILY atenolol 50 mg PO DAILY atorvastatin 80 mg PO DAILY benzonatate 100 mg PO TID PRN dextromethorphan-guaifenesin 10-100 mg/5 mL 10 mL PO Q6H PRN famotidine (Pepcid) 20 mg PO DAILY irbesartan 300 mg PO DAILY levothyroxine 50 mcg PO DAILY 90 days lorazepam 0.5 mg PO BID PRN 30 days mirtazapine 15 mg PO BEDTIME 90 days oxcarbazepine 300 mg PO TID oxycodone-acetaminophen 5-325 mg 1 tab PO Q4-6H PRN sennosides (senna) 8.6 mg PO BEDTIME PRN 90 days trazodone 100 mg PO BEDTIME PRN walker Folding front wheeled walker Tobacco use date assessed: 08/03/23 Fall risk assessment: No Falls in past year Last assessed Fall Risk: 11/03/23 Dental Screening Dental Screen Date: 08/03/23 HPI [place] HPI Details Patient comes in today complaining of a recurrent sore throat as well as recurrent cough and some congestion for the past 5 days now Notes that her symptoms feel worse at night and that her cough sometimes keep her up at night States that she is concerned that she may have a strep throat and as she has a left knee replacement surgery coming up next month, needs to get her respiratory infection cleared up quickly so they do not delay her surgery She denies any fever; denies any headaches or dizziness Denies any chest pains, no increased SOB except for when she is coughing non- stop No nausea/vomiting, no abdominal pain No change in bowel habits noted PFSH Medical History (Updated 11/03/23 @ 15:36 by Kelvin Pruett MD) Osteopenia Constipation Acquired hypothyroidism Overweight (BMI 25.0-29.9) Cataract Seizures Stroke (~2000) Ash ash disease (~2000) Urinary frequency Allergic rhinitis Degenerative disc disease, cervical Neck pain Depression Anxiety Insomnia Epilepsy Obesity (BMI 30-39.9) Osteoarthritis Benign essential hypertension Pure hypercholesterolemia Rib pain on right side Left shoulder pain Recurrent dry cough Pain of right scapula Right-sided thoracic back pain Surgical History H/O breast surgery Hx of colonoscopy History of kidney surgery Status post cervical disc replacement History of knee replacement procedure of right knee Hx of knee surgery Family History Father Chronic mental illness Mother Hypertension Other Mental health problem Social History Housing: House Alcohol intake: current Alcohol intake frequency: holidays/special occasions only Alcohol type: wine Patient Tobacco Use Status: Former Tobacco user Tobacco use type: Cigarette e-Cigarette/Vaping Use: Never Used Second Hand Smoke Exposure: No Advance Directives Date on File: 05/23/23 service: No Current occupational status: retired Cognitive needs: No Hearing needs: No Vision needs: No Questionnaire Thrive Questionnaire Date Thrive assessed: 08/03/23 FEI-7 AMB Questionnaire FEI-7 Date FEI - 7 assessed: 08/03/23 Source: Developed by Drs. Michoacano Hanson, Dayanna Car, Javier Spain and colleagues, with an educational zach from [employer]. Review of Systems Const Denies chills, Reports fatigue, Denies fever(s) and Denies headache(s) ENT Denies dysphagia, Denies dizziness, Denies otalgia, Denies headache(s), Reports nasal congestion (on and off), Reports neck pain (chronic), Denies odynophagia, Denies sinus pain and Reports sore throat (on and off, worse at night) Card Denies chest pain, Denies palpitations and Denies dyspnea Resp Denies chest congestion, Reports cough (recurrent, worse at night; coughs up slightly yellowish phlegm at times), Denies dyspnea and Denies wheezing GI Denies abdominal pain, Denies constipation, Denies dysphagia, Denies heartburn, Denies diarrhea, Denies nausea, Denies odynophagia and Denies vomiting Denies difficulty voiding, Denies nocturia, Denies dysuria and Denies urinary urgency Musc Reports back pain, Reports arthralgias (left knee ) and Reports neck pain (chronic) Skin/Breast Denies rash Neuro Denies dizziness and Denies headache(s) Endo Reports fatigue and Denies palpitations Aller/Immun Denies wheezing Physical exam (Primary Care) Vital Signs: Last Vital Signs Pulse 70 11/03/23 14:23 BP 112/62 11/03/23 14:23 Pulse Ox 98 11/03/23 14:23 Oxygen Delivery Method Room Air 11/03/23 14:23 BMI result Body Mass Index 28.9 Tobacco/Smoking Status: Tobacco use Status Tobacco use date assessed 08/03/23 11/03/23 14:29 Patient Tobacco Use Status Former Tobacco user 11/03/23 14:29 Tobacco use type Cigarette 11/03/23 14:29 e-Cigarette/Vaping Use Never Used 11/03/23 14:29 Thrive Assessment: Date of Thrive Assessment Date Thrive assessed 08/03/23 11/03/23 14:29 Const General: no acute distress and alert HENMT Ears: TM's normal bilaterally and EAC's normal Throat: Yes tonsils normal (no TP congestion noted) and Yes posterior oropharynx abnormal ((+) mild erythema over the posterior pharyngeal wall;no TP congestion noted) Neck Neck: Yes no lymphadenopathy and Yes tender Thyroid: Thyroid normal Resp Auscultation: clear to auscultation bilaterally, no rales and no wheezes Cardio Rate: regular rate Rhythm: regular rhythm Heart sounds: no murmurs GI Palpation (GI): Soft to palpation and nontender Auscultation: normal bowel sounds General: Yes no CVA tenderness Back/Spine/Pelvis Back: no CVA tenderness Cervical Spine: Cervical spine tenderness Thoracic/Lumbar Spine: lumbar spinal tenderness Skin Rashes: no rashes Extrem General: Yes no clubbing, cyanosis or edema Left lower extremity: knee Details: tenderness and crepitus; no swelling Assessment and Plan Assessment & Plan (1) Pharyngitis: Code(s): J02.9 - Acute pharyngitis, unspecified Qualifiers: Pharyngitis/tonsillitis etiology: unspecified etiology Qualified Code(s): J02.9 - Acute pharyngitis, unspecified Plan: Patient is advised that she does not appear to have strep throat at present based on her symptoms and her throat exam but as she has a knee replacement surgery coming up in a month and she is concerned that her surgery may get pushed back if she has some acute issues going on, will start her empirically on Amoxicillin 500 mg Q 8 hours x 7 days (2) Allergic rhinitis: Code(s): J30.9 - Allergic rhinitis, unspecified Qualifiers: Allergic rhinitis trigger: pollen Allergic rhinitis seasonality: seasonal Qualified Code(s): J30.1 - Allergic rhinitis due to pollen Plan: She is advised that her respiratory symptoms also appear to be at least partially due to allergies Will start her on Cetirizine 10 mg QD PRN Plan To return as scheduled next month for her preop exam - as she had her regular follow up appt scheduled on 11/10/2023 and her preop exam scheduled on 11/16/2023, will just have the office combine her 2 visits into one on 11/16/2023 and patient is reminded to get her previously ordered labs as well as her EKG done BEFORE she comes in as we will need her labs and EKG to complete her preop evaluation Orders: Orders ECG 12 lead EKG Today I10 - Essential (primary) hypertension, I49.1 - Atrial premature depolarization Medications: New amoxicillin 500 mg PO Q8H 7 days 21 caps 0RF cetirizine 10 mg PO DAILY 90 days PRN 90 tabs 3RF allergy symptoms Coding Level of Care Code Est Pt Level 3 (22226) Diagnoses Pharyngitis, unspecified etiology J02.9 Pharyngitis/tonsillitis etiology: unspecified etiology Seasonal allergic rhinitis due to pollen J30.1 Allergic rhinitis trigger: pollen Allergic rhinitis seasonality: seasonal
== END 2023-11-03 15:19 | disposition home or self-care (01) ==
PROVIDERS: PCP Internal Medicine; Visit Provider Internal Medicine
DX: J02.9 Acute pharyngitis, unspecified (principal); J30.1 Allergic rhinitis due to pollen
CPT/HCPCS: 99213

== ENCOUNTER → 2023-11-10 10:57 | Outpatient (BNVA) | payer MEDICARE, SELFPAY | PROVIDERS: PCP Internal Medicine | DX: Z01.818 Encounter for other preprocedural examination (principal) ==

== ENCOUNTER 2023-11-14 06:06 | Outpatient (REF) | payer MEDICARE, SELFPAY ==
[2023-11-14 10:19] LABS: MANUAL DIFF FLAG NO
[2023-11-14 10:24] LABS: Basophils Percent Auto 0.4 % (0-2); Eosinophils Absolute Auto 0.1 X10*3/uL (0.0-0.4); Eosinophils Percent Auto 1.5 % (0-4); Hematocrit 34.1 % (37.0-47.0); Hemoglobin 11.3 g/dl (12.0-16.0); Imm Gran Abs Auto 0.04 X10*3/uL (0.00-0.03); Imm Gran Pct Auto 0.5 % (0.0-0.4); Lymphocytes Absolute Auto 1.8 X10*3/uL (1.2-4.9); Lymphocytes Percent Auto 22.8 % (20-40); Mean Corpuscular HGB Conc 33.1 g/dl (31.0-35.0); Mean Corpuscular Hemoglobin 30.8 pg (27.0-33.0); Mean Corpuscular Volume 92.9 fL (80.0-98.0); Mean Platelet Volume 9.7 fL (9.4-12.3); Monocytes Absolute Auto 0.6 X10*3/uL (0.1-1.2); Monocytes Percent Auto 7.5 % (2-11); Neutrophils Absolute Auto 5.4 x10*3/uL (2.0-8.3); Neutrophils Percent Auto 67.3 % (45-73); Platelet Count 303 X10*3/uL (160-400); Red Blood Count 3.67 X10*6/uL (4.20-5.50); Red Cell Distribution Width 12.7 % (11.0-16.0)
[2023-11-14 11:04] LABS: Alanine Aminotransferase 17 U/L (0-31); Albumin Level 3.9 g/dL (3.5-5.0); Alkaline Phosphatase 107 U/L (39-117); Anion Gap 11 (12-20); Aspartate Amino Transferase 18 U/L (5-31); Bilirubin Total 0.2 mg/dL (0.0-1.0); Blood Urea Nitrogen 19 mg/dL (9-16); Calcium 9.4 mg/dL (8.4-10.2); Carbon Dioxide 25 mmol/L (22-29); Chloride 106 mmol/L (96-108); Cholesterol 159 mg/dL (<200); Estimated Glomerular Filt Rate > 60; Glucose Fasting 101 mg/dL (60-99); HDL Cholesterol 47 mg/dL (>40); LDL Cholesterol Calculated 91 mg/dL (<100); Potassium 4.4 mmol/L (3.3-5.1); Sodium 138 mmol/L (135-145); Total Protein 7.3 g/dL (6.5-8.0); Triglycerides 105 mg/dL (<150)
[2023-11-14 11:09] LABS: Free T4 (Free Thyroxine) 0.75 ng/dL (0.71-1.85); Thyroid Stimulating Hormone 1.58 uIU/mL (0.32-4.0)
== END 2023-11-14 06:07 | disposition home or self-care (01) ==
LOC: HO.HMGCLDS 06:06
PROVIDERS: PCP Internal Medicine; Visit Provider Internal Medicine
DX: C50.912 Malignant neoplasm of unspecified site of left female breast (principal); Z17.0 Estrogen receptor positive status [ER+]; D64.9 Anemia, unspecified; E78.00 Pure hypercholesterolemia, unspecified; E03.9 Hypothyroidism, unspecified
CPT/HCPCS: 36415; 80053; 80061; 84439; 84443; 85025; 99212

== ENCOUNTER 2023-11-14 10:59 | Outpatient (AMB) | payer MEDICARE, SELFPAY ==
--- NOTE | 2023-11-14 11:05 | MHC.OFFVIS ---
Intake Visit Reasons: 6m br exam~ lt br lumpectomy Intake Note: Patient here for 6m br exam. Hx of left breast lumpectomy/ sentinel lymph node. Reports currently on Anastrozole daily. Patient c/o: mammo due in December. Pain once in a while on lt breast area. 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 Mechanic Required: No Accompanied by: Self / Same As Patient Allergies sertraline [SERTRALINE] Allergy (Severe, Verified 11/14/23 11:12) DROPPED SODIUM LEVEL, BP increase Sodium drop aspirin [ASPIRIN] Allergy (Intermediate, Verified 11/14/23 11:12) RISK OF BLEDING NSAIDS (Non-Steroidal Anti-Inflamma Allergy (Unknown, Verified 11/14/23 11:12) risk of bleeding phenytoin [Dilantin] Allergy (Unknown, Verified 11/14/23 11:12) unknown Medication List - Last Reconciled 11/14/23 by Lucio Stout MD amlodipine 5 mg PO DAILY anastrozole 1 mg PO DAILY 90 days atenolol 50 mg PO DAILY atorvastatin 80 mg PO DAILY benzonatate 100 mg PO TID PRN cetirizine 10 mg PO DAILY PRN 90 days dextromethorphan-guaifenesin 10-100 mg/5 mL 10 mL PO Q6H PRN irbesartan 300 mg PO DAILY levothyroxine 50 mcg PO DAILY 90 days lorazepam 0.5 mg PO BID PRN 30 days mirtazapine 15 mg PO BEDTIME 90 days oxcarbazepine 300 mg PO TID sennosides (senna) 8.6 mg PO BEDTIME PRN 90 days trazodone 100 mg PO BEDTIME PRN walker Folding front wheeled walker HPI Comments Details: Patient presents for follow-up status post left lumpectomy and sentinel lymph node biopsy. She is doing quite well. This is several month post up visit. She has no breast issues or complaints. [facility] Medical History Osteopenia Constipation Acquired hypothyroidism Overweight (BMI 25.0-29.9) Cataract Seizures Stroke (~2000) Ash ash disease (~2000) Urinary frequency Allergic rhinitis Degenerative disc disease, cervical Neck pain Depression Anxiety Insomnia Epilepsy Obesity (BMI 30-39.9) Osteoarthritis Benign essential hypertension Pure hypercholesterolemia Rib pain on right side Left shoulder pain Recurrent dry cough Pain of right scapula Right-sided thoracic back pain Surgical History H/O breast surgery Hx of colonoscopy History of kidney surgery Status post cervical disc replacement History of knee replacement procedure of right knee Hx of knee surgery Family History Father Chronic mental illness Mother Hypertension Other Mental health problem Social History Housing: House Alcohol intake: current Alcohol intake frequency: holidays/special occasions only Alcohol type: wine Patient Tobacco Use Status: Former Tobacco user Tobacco use type: Cigarette e-Cigarette/Vaping Use: Never Used Second Hand Smoke Exposure: No Advance Directives Date on File: 05/23/23 service: No Current occupational status: retired Cognitive needs: No Hearing needs: No Vision needs: No Physical Exam Chest Other: Bilateral breast exams demonstrated no obvious mass, discharge, adenopathy, or skin changes bilaterally. No active cervical periclavicular axillary adenopathy. Left breast and sentinel lymph node scars well healed. 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 She is on hormone therapy. She states that she did not require radiation therapy post lumpectomy. Current plan is to obtain follow-up mammogram in 3 months time she will see me after this visit. All questions answered. Plan See above Orders: Orders MM diagnostic mammo BI 3 Months C50.912 - Malignant neoplasm of unspecified site of left female breast, Z17.0 - Estrogen receptor positive status [ER+] Coding Level of Care Code Est Pt Level 4 (09434) Diagnoses Malignant neoplasm of left breast in female, estrogen receptor positive, unspecified site of breast C50.912; Z17.0 Breast location: unspecified site of breast Estrogen receptor status: positive Patient sex: female
== END 2023-11-14 11:41 | disposition home or self-care (01) ==
PROVIDERS: PCP Internal Medicine; Visit Provider Surgery
DX: C50.912 Malignant neoplasm of unspecified site of left female breast (principal); Z17.0 Estrogen receptor positive status [ER+]
CPT/HCPCS: 99213

== ENCOUNTER 2023-11-16 12:17 | Outpatient (AMB) | payer MEDICARE, SELFPAY ==
[2023-11-16 12:19] VITALS: BP 126/58; PULSE 71; O2SAT 97; BMI 29.0
--- NOTE | 2023-11-16 12:19 | A.OFFPC_ITS ---
Vital Signs 11/16/23 12:19 Height 5 ft 3 in Weight 164 lb BMI 29.0 BP 126/58 L Blood Pressure Location Lt brachial Position Sitting Pulse 71 Pulse Source Pulse Oximeter Pulse Oximetry (%) 97 Oxygen Delivery Method Room Air Intake Visit Reasons: L TKA w/Dr. Martin on 12/12/23 Intake Note: Patient is here for a Pre-op for Left TKA with Dr. No on 12/06/2023 Allergies sertraline [SERTRALINE] Allergy (Severe, Verified 11/16/23 12:53) DROPPED SODIUM LEVEL, BP increase Sodium drop aspirin [ASPIRIN] Allergy (Intermediate, Verified 11/16/23 12:53) RISK OF BLEDING NSAIDS (Non-Steroidal Anti-Inflamma Allergy (Unknown, Verified 11/16/23 12:53) risk of bleeding phenytoin [Dilantin] Allergy (Unknown, Verified 11/16/23 12:53) unknown Medication List - Last Reconciled 11/16/23 by Kelvin Pruett MD amlodipine 5 mg PO DAILY anastrozole 1 mg PO DAILY 90 days atenolol 50 mg PO DAILY atorvastatin 80 mg PO DAILY benzonatate 100 mg PO TID PRN cetirizine 10 mg PO DAILY PRN 90 days dextromethorphan-guaifenesin 10-100 mg/5 mL 10 mL PO Q6H PRN irbesartan 300 mg PO DAILY levothyroxine 50 mcg PO DAILY 90 days lorazepam 0.5 mg PO BID PRN 30 days mirtazapine 15 mg PO BEDTIME 90 days oxcarbazepine 300 mg PO TID sennosides (senna) 8.6 mg PO BEDTIME PRN 90 days trazodone 100 mg PO BEDTIME PRN walker Folding front wheeled walker Tobacco use date assessed: 08/03/23 Fall risk assessment: No Falls in past year Last assessed Fall Risk: 11/16/23 Dental Screening Dental Screen Date: 08/03/23 HPI L TKA w/Dr. Martin on 12/12/23 HPI Details Patient comes in today at the request of Dr. Emory No for a preoperative medical examination for clearance for surgery She is scheduled for a total left knee arthroplasty under general anesthesia on 12/06/2023 Patient states that other that her knee pain and joint pains, she feels okay She has been experiencing increasing left knee pain for the past couple of years and injections into her left knee a couple of years ago did not provide her with any significant relief She did not follow up with orthopedics for about a year as she was able to manage her knee pain with some pain meds until her increasing knee pain prompted a referral back to orthopedics in November 2022 She was unfortunately then diagnosed with breast cancer and chose to put the orthopedic referral on hold to address her breast cancer and undergo cancer treatment first States that she still has on and off sore throat from a couple of weeks ago although this and her cough and nasal congestion have improved with the empiric Abx Tx (Amoxicillin) as well as the Cetirizine that we started her on She denies any headaches or dizziness; denies any fever Denies any chest pains, no SOB No nausea/vomiting, no abdominal pain No change in bowel habits noted She had her follow up labs done a couple of days ago - to discuss her results [facility] Medical History (Updated 11/16/23 @ 23:32 by Kelvin Pruett MD) Osteopenia Constipation Acquired hypothyroidism Overweight (BMI 25.0-29.9) Cataract Seizures Stroke (~2000) Ash ash disease (~2000) Urinary frequency Allergic rhinitis Degenerative disc disease, cervical Neck pain Depression Anxiety Insomnia Epilepsy Obesity (BMI 30-39.9) Osteoarthritis Benign essential hypertension Pure hypercholesterolemia Rib pain on right side Left shoulder pain Recurrent dry cough Pain of right scapula Right-sided thoracic back pain Surgical History H/O breast surgery Hx of colonoscopy History of kidney surgery Status post cervical disc replacement History of knee replacement procedure of right knee Hx of knee surgery Family History Father Chronic mental illness Mother Hypertension Other Mental health problem Social History Housing: House Alcohol intake: current Alcohol intake frequency: holidays/special occasions only Alcohol type: wine Patient Tobacco Use Status: Former Tobacco user Tobacco use type: Cigarette e-Cigarette/Vaping Use: Never Used Second Hand Smoke Exposure: No Advance Directives Date on File: 05/23/23 service: No Current occupational status: retired Cognitive needs: No Hearing needs: No Vision needs: No Questionnaire Thrive Questionnaire Date Thrive assessed: 08/03/23 AUDIT C Alcohol Use Questionnaire (AUDIT-C) 1. How often do you have a drink containing alcohol?: Never 3. How often do you have six or more drinks on one occasion?: Never Total Score: 0 Score Reviewed/Action Taken: Yes FEI-7 AMB Questionnaire FEI-7 Date FEI - 7 assessed: 08/03/23 Source: Developed by Drs. Michoacano Hanson, Dayanna Car, Javier Spain and colleagues, with an educational zach from [employer]. Review of Systems Const Denies chills, Reports fatigue, Denies fever(s) and Denies headache(s) ENT Denies dysphagia, Denies dizziness, Denies otalgia, Denies headache(s), Denies nasal congestion, Denies nasal discharge, Reports neck pain (chronic), Denies odynophagia and Reports sore throat (mild, on and off, worse at night) Card Denies chest pain, Denies palpitations and Denies dyspnea Resp Denies chest congestion, Denies cough, Denies dyspnea and Denies wheezing GI Denies abdominal pain, Denies constipation, Denies dysphagia, Denies heartburn, Denies diarrhea, Denies nausea, Denies odynophagia and Denies vomiting Denies difficulty voiding, Denies nocturia, Denies dysuria and Denies urinary urgency Musc Reports back pain, Reports arthralgias (left knee ) and Reports neck pain (chronic) Skin/Breast Denies rash Neuro Denies dizziness and Denies headache(s) Endo Reports fatigue and Denies palpitations Aller/Immun Denies wheezing Physical exam (Primary Care) Vital Signs: Last Vital Signs Pulse 71 11/16/23 12:19 BP 126/58 L 11/16/23 12:19 Pulse Ox 97 11/16/23 12:19 Oxygen Delivery Method Room Air 11/16/23 12:19 BMI result Body Mass Index 29.0 Tobacco/Smoking Status: Tobacco use Status Tobacco use date assessed 08/03/23 11/16/23 12:20 Patient Tobacco Use Status Former Tobacco user 11/16/23 12:20 Tobacco use type Cigarette 11/16/23 12:20 e-Cigarette/Vaping Use Never Used 11/16/23 12:20 Thrive Assessment: Date of Thrive Assessment Date Thrive assessed 08/03/23 11/16/23 12:20 Const General: no acute distress and alert HENMT Face and sinus: No sinuses nontender Throat: Yes posterior oropharynx normal, Yes tonsils normal (no TP congestion ) and No postnasal drainage Neck Neck: Yes no lymphadenopathy and Yes tender Thyroid: Thyroid normal Resp Auscultation: clear to auscultation bilaterally, no rales and no wheezes Cardio Rate: regular rate Rhythm: regular rhythm Heart sounds: no murmurs GI Palpation (GI): Soft to palpation and nontender Auscultation: normal bowel sounds General: Yes no CVA tenderness Back/Spine/Pelvis Back: no CVA tenderness Cervical Spine: Cervical spine tenderness Thoracic/Lumbar Spine: lumbar spinal tenderness Skin Rashes: no rashes Extrem General: Yes no clubbing, cyanosis or edema Left lower extremity: knee Details: tenderness and crepitus; no swelling Results Reviewed Results Reviewed: Laboratory Tests 11/14/23 06:30 WBC 8.0 Hgb 11.3 L Hct 34.1 L Plt Count 303 Sodium 138 Potassium 4.4 Creatinine 0.82 Estimated GFR > 60 Fasting Glucose 101 H Calcium 9.4 AST 18 ALT 17 Triglycerides 105 Cholesterol 159 LDL Cholesterol, Calc 91 HDL Cholesterol 47 TSH 1.58 Free T4 0.75 Assessment and Plan Assessment & Plan (1) Preoperative examination: Code(s): Z01.818 - Encounter for other preprocedural examination Plan: Patient currently presents with acceptable risks for planned intermediate cardiac risk procedure Results of her labs done a couple of days ago reviewed and discussed with patient - she is advised that aside from her mild anemia, which is stable and has been ongoing since 2020, her labs are all within acceptable range She was also supposed to get her EKG done when she went for her labs but states that this was unfortunately not done and she is not sure why Have advised her to try getting this done ANALISA as I will need this before I can formally clear her for her upcoming surgery (2) Osteoarthritis of left knee: Code(s): M17.12 - Unilateral primary osteoarthritis, left knee Qualifiers: Osteoarthritis type: primary Qualified Code(s): M17.12 - Unilateral primary osteoarthritis, left knee Plan: She is currently scheduled for a total left knee arthroplasty under general anesthesia with Dr. No on 12/06/2023 Right knee arthroplasty was done back in 2015 and her right knee is currently still doing well since her surgery She was taking Percocet 5/325 mg and Celecoxib for her knee pain for a while but states that she has not taken both of these Rx in the past few weeks Is advised that she should avoid taking any NSAIDs as well as any Aspirin for at least 7 days prior to her knee surgery date (3) Pure hypercholesterolemia: Code(s): E78.00 - Pure hypercholesterolemia, unspecified Plan: Results of her labs done a few days ago reviewed and discussed with patient Reinforced low-cholesterol diet Continue Atorvastatin 80 mg QD Will recheck her labs and fasting lipids in 3 months for follow-up (4) Benign essential hypertension: Code(s): I10 - Essential (primary) hypertension Plan: Reinforced low-sodium diet - goal is systolic BP of at least 140 to 150 mm or less Continue Atenolol 50 mg QD, Amlodipine 5 mg QD and Irbesartan 300 mg QD (5) PAC (premature atrial contraction): Code(s): I49.1 - Atrial premature depolarization Plan: Her EKG done back in April 2023 revealed sinus rhythm with Premature atrial complexes and minimal voltage criteria for LVH, which may be normal variant ( R in aVL ) She is currently asymptomatic from a cardiac standpoint Will have patient get a repeat 12-lead EKG for follow up - she is advised that this is required before I can complete her clearance so she should try to get this done ANALISA (6) Degenerative disc disease, cervical: Comment: S/P anterior fusion of C5-C7 in 2011 Code(s): M50.30 - Other cervical disc degeneration, unspecified cervical region Plan: States that her neck pain has been manageable lately Cervical spine x-rays done in September 2020 revealed stable post-surgical changes and some mild degenerative changes in the cervical spine Will consider referring her again to physical therapy if her neck pain flares up (7) Breast cancer, left: Comment: 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; stage I ([id number]), grade 1, ER positive, NV positive, HER2 negative - diagnosed in January 2023 Code(s): C50.912 - Malignant neoplasm of unspecified site of left female breast Qualifiers: Breast location: unspecified site of breast Estrogen receptor status: positive Patient sex: female Qualified Code(s): C50.912 - Malignant neoplasm of unspecified site of left female breast; Z17.0 - Estrogen receptor positive status [ER+] Plan: Was diagnosed in January 2023 with invasive lobular carcinoma of the left breast after her routine mammogram revealed (+) calcifications and Bx done came back positive for breast cancer She has since undergone lumpectomy with negative margins She was referred to hematology/oncology and radiation oncology at [facility] (per request) and was started on Letrozole 1 mg QD, which she was advised to continue on for at least 5 years She was seen by radiation oncology at [facility] late last year for consultation as to whether she will require radiation therapy or not Her appointment was delayed when she developed RSV over the holidays and by the time she got to see Radiation Oncology, was advised that she was no longer in the window for radiation treatment to benefit her She will need to continue with annual mammography for continuing surveillance and to follow up with oncology as scheduled (8) Anemia: Code(s): D64.9 - Anemia, unspecified Qualifiers: Anemia type: unspecified type Qualified Code(s): D64.9 - Anemia, unspecified Plan: Mild; stable - H/H was at 11.3/34.1 on her labs done a couple of days ago She has been consistently mildly anemic for the past couple of years but her RBC indices are normal Will continue to monitor her CBC regularly and consider referral to hematology for further evaluation if this progresses (9) Acquired hypothyroidism: Code(s): E03.9 - Hypothyroidism, unspecified Plan: Her TFTs were normal on her labs done a couple of days ago Continue Levothyroxine 50 mcg QD Will recheck her TFTs in 3 months for follow up (10) Osteopenia: Code(s): M85.80 - Other specified disorders of bone density and structure, unspecified site Qualifiers: Osteopenia location: unspecified Qualified Code(s): M85.80 - Other specified disorders of bone density and structure, unspecified site Plan: Her recent BMD done at [facility] on 07/14/2023 revealed (+) osteopenia with a T- score of -1.8 at the lumbar spine, -0.8 the left hip and -0.9 at the left femoral neck She is advised to continue taking her vitamin D and calcium supplements daily Fall precautions reinforced (11) Epilepsy: Code(s): G40.909 - Epilepsy, unspecified, not intractable, without status epilepticus Qualifiers: Epilepsy type: unspecified Intractability: not intractable Status epilepticus: without status epilepticus Qualified Code(s): G40.909 - Epilepsy, unspecified, not intractable, without status epilepticus Plan: Stable with no recent recurrence Continue Trileptal 300 mg 1 tablet Q AM and 2 tablets Q PM 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 and was taking Aspirin daily for a while but she stopped taking this many years ago Follow up with neurology as scheduled (12) Constipation: Code(s): K59.00 - Constipation, unspecified Qualifiers: Constipation type: unspecified constipation type Qualified Code(s): K59.00 - Constipation, unspecified Plan: Encouraged again on increased oral fluids and dietary fiber Continue Senna 8.6 mg Q HS PRN Have advised patient that her opioid Rx may also be contributing to her constipation (13) Overactive bladder: Code(s): N32.81 - Overactive bladder Plan: Continue Myrbetriq ER 25 mg QD Follow up with urology as scheduled (14) Insomnia: Code(s): G47.00 - Insomnia, unspecified Qualifiers: Insomnia type: unspecified Qualified Code(s): G47.00 - Insomnia, unspecified Plan: Sleep hygiene reinforced Continue Trazodone 100 mg 1.5 tablets (150 mg) Q HS PRN (15) Anxiety: Code(s): F41.9 - Anxiety disorder, unspecified Plan: Continue Lorazepam 0.5 mg 1 to 2 tablets once a day at bedtime as needed (16) Depression: Code(s): F32.9 - Major depressive disorder, single episode, unspecified Qualifiers: Depression Type: unspecified Qualified Code(s): F32.9 - Major depressive disorder, single episode, unspecified Plan: Continue Mirtazapine 15 mg Q HS (17) Overweight (BMI 25.0-29.9): Code(s): E66.3 - Overweight Plan: Reinforced diet/exercise as tolerated/lose weight, although due to her age, comorbidites and physical condition/issues, her activity and exercise tolerance is very limited Plan Patient currently appears medically optimized and does not appear to have any contraindications to undergo planned left knee arthroplasty with Dr. No but she was not able to get her EKG done recently and have advised her to get this done ANALISA as this is required before I can formally clear her for surgery Final clearance will be provided when her EKG results are available for review Follow up in 3 months Orders: Orders Lipid Panel 3 Months E78.00 - Pure hypercholesterolemia, unspecified Comprehensive [place]. Panel Fast 3 Months E78.00 - Pure hypercholesterolemia, u nspecified Free T4 (Free Thyroxine) 3 Months E03.9 - Hypothyroidism, unspecified UA CC w/rflx Micro + Cult 3 Months R30.0 - Dysuria Complete Blood Count Auto Diff 3 Months D64.9 - Anemia, unspecified Thyroid Stimulating Hormone 3 Months E03.9 - Hypothyroidism, unspecified Vitamin D 25-OH Total 3 Months E55.9 - Vitamin D deficiency, unspecified Vitamin B12 and Folate 3 Months E53.8 - Deficiency of other specified B group vitamins Coding Level of Care Code Est Pt Level 4 (31905) Diagnoses Preoperative examination Z01.818 Primary osteoarthritis of left knee M17.12 Osteoarthritis type: primary Pure hypercholesterolemia E78.00 Benign essential hypertension I10 PAC (premature atrial contraction) I49.1 Degenerative disc disease, cervical M50.30 Malignant neoplasm of left breast in female, estrogen receptor positive, unspecified site of breast C50.912; Z17.0 Breast location: unspecified site of breast Estrogen receptor status: positive Patient sex: female Anemia, unspecified type D64.9 Anemia type: unspecified type Acquired hypothyroidism E03.9 Osteopenia, unspecified location M85.80 Osteopenia location: unspecified Nonintractable epilepsy without status epilepticus, unspecified epilepsy type G40.909 Epilepsy type: unspecified Intractability: not intractable Status epilepticus: without status epilepticus Constipation, unspecified constipation type K59.00 Constipation type: unspecified constipation type Overactive bladder N32.81 Insomnia, unspecified type G47.00 Insomnia type: unspecified Anxiety F41.9 Depression, unspecified depression type F32.9 Depression Type: unspecified Overweight (BMI 25.0-29.9) E66.3
== END 2023-11-16 13:09 | disposition home or self-care (01) ==
PROVIDERS: PCP Internal Medicine; Visit Provider Internal Medicine
DX: M17.12 Unilateral primary osteoarthritis, left knee (principal); Z01.818 Encounter for other preprocedural examination; G40.909 Epilepsy, unspecified, not intractable, without status epilepticus; C50.912 Malignant neoplasm of unspecified site of left female breast; E78.00 Pure hypercholesterolemia, unspecified; I10 Essential (primary) hypertension; I49.1 Atrial premature depolarization; M50.30 Other cervical disc degeneration, unspecified cervical region; Z17.0 Estrogen receptor positive status [ER+]; D64.9 Anemia, unspecified; E03.9 Hypothyroidism, unspecified; M85.80 Other specified disorders of bone density and structure, unspecified site
CPT/HCPCS: 99214

== ENCOUNTER → 2023-11-17 11:32 | Outpatient (BNV) | payer MEDICARE, SELFPAY | PROVIDERS: Admitting Provider Orthopaedic Surgery; PCP Internal Medicine; Visit Provider Internal Medicine Cardiovascular Disease | DX: I49.9 Cardiac arrhythmia, unspecified (principal) | CPT/HCPCS: 93010 ==

== ENCOUNTER 2023-12-01 11:20 | Outpatient (AMB) | payer MEDICARE, SELFPAY ==
--- NOTE | 2023-12-01 12:01 | A.OFFVIS_ITS ---
Vital Signs 12/01/23 12:04 Height 5 ft 3 in Weight 165 lb BMI 29.2 Intake Visit Reasons: Pre-Op: L TKA w/NE 12/06/23 Intake Note: Jennie is a 83 year old female who presents today pre operatively for Left TKA w/NE 12/06/23. Allergies phenytoin [Dilantin] Allergy (Severe, Verified 12/06/23 06:23) Hives sertraline [SERTRALINE] Allergy (Severe, Verified 12/01/23 12:05) DROPPED SODIUM LEVEL, BP increase Sodium drop aspirin [ASPIRIN] Allergy (Intermediate, Verified 12/01/23 12:05) RISK OF BLEDING NSAIDS (Non-Steroidal Anti-Inflamma Allergy (Unknown, Verified 12/01/23 12:05) risk of bleeding Medication List - Last Reconciled 12/01/23 by Allan Tineo PA-C amlodipine 5 mg PO DAILY anastrozole 1 mg PO DAILY 90 days atenolol 50 mg PO DAILY atorvastatin 80 mg PO DAILY irbesartan 300 mg PO DAILY levothyroxine 50 mcg PO DAILY 90 days loratadine (Claritin) 10 mg PO DAILY PRN lorazepam 0.5 mg PO BEDTIME PRN mirtazapine 15 mg PO BEDTIME 90 days oxcarbazepine 300 mg PO QAM oxcarbazepine 450 mg PO BEDTIME oxycodone-acetaminophen 5-325 mg (Percocet) 1 tab PO Q4-6H PRN sennosides (senna) 8.6 mg PO BEDTIME PRN 90 days trazodone 100 mg PO BEDTIME PRN walker Folding front wheeled walker HPI Comments Details: Ms Stone presents to the office today for preop visit. She is scheduled for left total knee arthroplasty with Dr. No. She continues to have ongoing pain and difficulty with ambulation in the left knee, which is affecting her quality of life; therefore, she has elected to move forward with surgery. [facility] Medical History Seasonal allergies Osteopenia Constipation Acquired hypothyroidism Overweight (BMI 25.0-29.9) Cataract Seizures Stroke (~2000) Ash ash disease (~2000) Urinary frequency Allergic rhinitis Degenerative disc disease, cervical Neck pain Depression Anxiety Insomnia Epilepsy Obesity (BMI 30-39.9) Osteoarthritis Benign essential hypertension Pure hypercholesterolemia Rib pain on right side Left shoulder pain Recurrent dry cough Pain of right scapula Right-sided thoracic back pain Surgical History H/O breast surgery Hx of colonoscopy History of kidney surgery Status post cervical disc replacement History of knee replacement procedure of right knee Hx of knee surgery Family History Father Chronic mental illness Mother Hypertension Other Mental health problem Social History Household Members: None Housing: House Are you a primary care support representative to a significant other at home: No Do you presently have visiting nurse or other home services: No Alcohol intake: current Alcohol intake frequency: holidays/special occasions only Alcohol type: wine Patient Tobacco Use Status: Former Tobacco user Tobacco use type: Cigarette Years Smoked: 10 e-Cigarette/Vaping Use: Never Used Second Hand Smoke Exposure: No Advance Directives Date on File: 05/23/23 service: No Current occupational status: retired Cognitive needs: No Hearing needs: No Vision needs: No Review of Systems Const All systems reviewed & are unremarkable except as noted in HPI and below Physical Exam Vital Signs: BMI result Body Mass Index 29.2 Const General: cooperative and no acute distress Orientation/consciousness: patient oriented x3 Neck Neck: Yes normal visual inspection and Yes no lymphadenopathy Resp Effort & Inspection: normal respiratory effort and able to speak in complete sentences Cardio Peripheral pulses: Peripheral pulses 2+ throughout GI Inspection: Yes normal to inspection Palpation (GI): Soft to palpation Skin General skin exam: no rashes or lesions noted Neuro General: patient oriented x3 Extrem Other: Left knee: Skin is intact. No open wound abrasion. ROM is 0-90 degrees. Calf supple, nontender. NVI. Assessment & Plan Assessment & Plan (1) Arthritis of left knee: Code(s): M17.12 - Unilateral primary osteoarthritis, left knee Category: Medical Plan I discussed in detail the procedure and what to expect pre and post operatively. We discussed the risks, benefits and alternatives to the surgery as well as the rehabilitation course. The risks; which include, but are not limited to infection, bleeding, nerve injury, ongoing pain, swelling, and stiffness, perioperative risk of injury to bones and soft tissues, and blood clots. I?ve answered all questions and with their understanding they have consented to move forward with Left total knee arthroplasty with Dr. Oneal Muhammad Patient Instructions: Scribed for Allan Tineo PA-C, by Ramon Lynn medical officer, on 12/01/2023 at 11:30 AM EST.? I, Allan Tineo PA-C, have personally reviewed and agree with the information entered by the scribe. Coding Level of Care Code Est Pt Level 3 (86686) Diagnoses Arthritis of left knee M17.12
[2023-12-01 12:04] VITALS: BMI 29.2
== END 2023-12-01 12:47 | disposition home or self-care (01) ==
PROVIDERS: PCP Internal Medicine; Visit Provider Physician Assistant
DX: M17.12 Unilateral primary osteoarthritis, left knee (principal)
CPT/HCPCS: 99024

== ENCOUNTER → 2023-12-01 11:20 | Outpatient (BNVA) | payer MEDICARE, SELFPAY | PROVIDERS: PCP Internal Medicine; Visit Provider Physician Assistant | DX: Z01.818 Encounter for other preprocedural examination (principal); M17.12 Unilateral primary osteoarthritis, left knee | CPT/HCPCS: 99212 ==

== ENCOUNTER 2023-12-06 06:02 | Inpatient (IN) | payer MEDICARE, SELFPAY ==
--- NOTE | 2023-11-17 11:32 | ECG_ITS ---
Test Reason : ESSENT. HTN Blood Pressure : / mmHG Vent. Rate : 069 BPM Atrial Rate : 069 BPM P-R Int : 164 ms QRS Dur : 076 ms QT Int : 380 ms P-R-T Axes : 028 003 038 degrees QTc Int : 407 ms Normal sinus rhythm with sinus arrhythmia Normal ECG When compared with ECG of 23-MAY-2023 10:31, Premature atrial complexes are no longer Present T wave amplitude has increased in Anterior leads Referred By: Kelvin Pruett Electronically Signed By:Jose Gonzalez
[2023-11-23 13:14] VITALS: BP 143/65; PULSE 72; RESP 16; O2SAT 97; BMI 28.9
--- NOTE | 2023-11-23 13:41 | P.CONAN_ITS ---
HPI - Anesthesia Eval Consult details Narrative: 83yo F for Left Knee Replacement Total, 12/06/23 No recent illness. Seasonal allergies No CP/SOB with activity limited to pain Seizures: Last 4 years ago Moyamoya ds: Stroke 2000, no residual PMFSH Active Problems Active Problems: All Active Problems Anemia (Acute) Preoperative examination (Acute) Pharyngitis (Acute) PAC (premature atrial contraction) (Acute) Arthritis of left knee (Acute) Respiratory syncytial virus (RSV) (Acute) Cellulitis of breast (Acute) Breast cancer, left (Acute) Breast calcification, left (Acute) Excessive cerumen in both ear canals (Acute) Overactive bladder (Acute) Elevated TSH (Acute) Impaired fasting blood sugar (Acute) Medicare annual wellness visit, subsequent (Acute) Rib pain on right side (Acute) Osteoarthritis of left knee (Acute) Encounter for annual wellness exam in Medicare patient (Acute) Torticollis, acute (Acute) Osteopenia (Acute) Constipation (Acute) Acquired hypothyroidism (Acute) Overweight (BMI 25.0-29.9) (Acute) Urinary frequency (Acute) Allergic rhinitis (Acute) Degenerative disc disease, cervical (Acute) Neck pain (Acute) Depression (Acute) Anxiety (Acute) Insomnia (Acute) Epilepsy (Acute) Obesity (BMI 30-39.9) (Acute) Osteoarthritis (Acute) Benign essential hypertension (Acute) Pure hypercholesterolemia (Acute) Rib pain on right side (Acute) Left shoulder pain (Acute) Recurrent dry cough (Acute) Pain of right scapula (Acute) Right-sided thoracic back pain (Acute) Past Medical History Medical History (Updated 11/23/23 @ 13:33 by Heena Valencia RN) Seasonal allergies Osteopenia Constipation Acquired hypothyroidism Overweight (BMI 25.0-29.9) Cataract Seizures Stroke (~2000) Ash ash disease (~2000) Urinary frequency Allergic rhinitis Degenerative disc disease, cervical Neck pain Depression Anxiety Insomnia Epilepsy Obesity (BMI 30-39.9) Osteoarthritis Benign essential hypertension Pure hypercholesterolemia Rib pain on right side Left shoulder pain Recurrent dry cough Pain of right scapula Right-sided thoracic back pain Family History Family History Father Chronic mental illness Mother Hypertension Other Mental health problem Family history of problems with anesthesia: No Surgical History Surgical History H/O breast surgery Hx of colonoscopy History of kidney surgery Status post cervical disc replacement History of knee replacement procedure of right knee Hx of knee surgery History of Problems with Anesthesia: No Social History Social History (Updated 11/23/23 @ 13:29 by Heena Valencia RN) Household Members: None Housing: House Are you a primary health care liaison to a significant other at home: No Do you presently have visiting nurse or other home services: No Alcohol intake: current Alcohol intake frequency: holidays/special occasions only Alcohol type: wine Patient Tobacco Use Status: Former Tobacco user Tobacco use type: Cigarette Years Smoked: 10 e-Cigarette/Vaping Use: Never Used Second Hand Smoke Exposure: No Use of substances other than those prescribed or required for medical reasons: No Advance Directives Date on File: 05/23/23 service: No Current occupational status: retired Cognitive needs: No Hearing needs: No Vision needs: No Meds Allergies Allergy/AdvReac Type Severity Reaction Status Date / Time sertraline [SERTRALINE] Allergy Severe DROPPED Verified 11/16/23 12:53 SODIUM LEVEL, BP increase Sodium drop aspirin [ASPIRIN] Allergy Intermediate RISK OF Verified 11/16/23 12:53 BLEDING NSAIDS (Non-Steroidal Allergy Unknown risk of Verified 11/16/23 12:53 Anti-Inflamma bleeding phenytoin [Dilantin] Allergy Unknown unknown Verified 11/16/23 12:53 Home Medications ?Medication ?Instructions ?Recorded ?Confirmed ?Last Taken ?Type trazodone 100 mg tablet 100 mg PO BEDTIME PRN Insomnia 10/02/23 11/23/23 Unknown History loratadine 10 mg tablet (Claritin) 10 mg PO DAILY PRN Allergy Symptoms 11/23/23 11/23/23 Unknown History lorazepam 0.5 mg tablet 0.5 mg PO BEDTIME PRN anxiety 11/23/23 11/23/23 Unknown History oxcarbazepine 300 mg tablet 300 mg PO QAM 11/23/23 11/23/23 Unknown History oxcarbazepine 300 mg tablet 450 mg PO BEDTIME 11/23/23 11/23/23 Unknown History oxycodone-acetaminophen 5 mg-325 1 tab PO Q4-6H PRN Pain 11/23/23 11/23/23 Unknown History mg tablet (Percocet) Exam Height,Weight and Vital Signs: Height 5 ft 3 in Weight 73.936 kg Last Vital Signs Pulse 72 11/23/23 13:14 Resp 16 11/23/23 13:14 BP 143/65 H 11/23/23 13:14 Pulse Ox 97 11/23/23 13:14 O2 Del Method Room Air 11/23/23 13:14 Pertinent Lab Results Pertinent Lab Results: Laboratory Tests 11/14/23 06:30 WBC 8.0 Hgb 11.3 L Hct 34.1 L Plt Count 303 Sodium 138 Potassium 4.4 Chloride 106 Carbon Dioxide 25 BUN 19 H Creatinine 0.82 Narrative Narrative: EKG 10/2023 Vent. Rate : 069 BPM Atrial Rate : 069 BPM P-R Int : 164 ms QRS Dur : 076 ms QT Int : 380 ms P-R-T Axes : 028 003 038 degrees QTc Int : 407 ms Normal sinus rhythm with sinus arrhythmia Normal ECG When compared with ECG of 23-MAY-2023 10:31, Premature atrial complexes are no longer Present T wave amplitude has increased in Anterior leads Airway Mallampati Class: II TM Dist: >3cm Neck ROM: Limited (s/p cspine surgery 2011) Denture: Upper Loose/Missing/Broken Teeth: Yes (lower molars missing) Heart: RRR Lungs: CTAB Assessment and Plan Assessment Anesthesia Assessment: Anesthesia Plan Discussed and PAT Visit Final Anesthetic Review Family History of Problems with Anesthesia: No History of Problems with Anesthesia: No
[2023-11-23 15:42] LABS: MRSA Nasal PCR NEGATIVE (Negative); SA Nasal PCR NEGATIVE (Negative)
[2023-12-06] VITALS (15 sets, daily range): BP systolic 116–187; BP diastolic 51–81; PULSE 59–76; RESP 16–18; TEMP 36.1–37.1; O2SAT 95–98; BMI 29.1
--- NOTE | ~2023-12-06 | XR_ITS ---
EXAMINATION: XR KNEE, LEFT CLINICAL INFORMATION: Status-post left knee total arthroplasty. COMPARISON: Radiographs dated 10/02/2023. TECHNIQUE: AP and lateral views of the left knee. FINDINGS: Prosthetic components of the total knee arthroplasty are appropriately aligned. No periprosthetic fracture. Gas from recent surgery is present in the joint and surrounding soft tissues. A joint effusion is present. There are atherosclerotic calcifications. XR/XR knee LT 2V IMPRESSION: Appropriate alignment of the left total knee arthroplasty.
--- OUTSIDE RECORDS SUMMARY | 2023-12-06 06:21 | XMS_ITS | Continuity of Care Document ---
Author Organization [facility] C ancer Care Address [address] [place] [address]- Care Team Providers Care Hse Manager Name Role Phone Kelvin Pruett MD Primary Care Physician [phone] [id number] Date(s): 07/25/23 - 09/26/23 [facility] Care [address] [place] [id number] Discharge Disposition: A-D/C Home Attending Physician: Anila Fair MD Admitting Physician: Anila Fair MD Referring Physician: Kelvin Pruett MD Allergies, Adverse Reactions, Alerts Substance Reaction Severity Status aspirin Active sertraline Active Dilantin Active Medications acetaminophen-oxyCODONE 325 mg-5 mg oral tablet 1 tablet, By Mouth, 4 times a day, PRN Pain , Moderate, # 12 tablet, 0 Refills, 01/29/15 13:49:49 Start Date: 01/29/15 Status: Ordered amLODIPine 10 mg oral tablet = 10 mg, By Mouth, Daily, # 30 tablet, 0 Refills, Maintenance, 02/20/15 10:52:13, Tablet, 10 mg By Mouth Daily Start Date: 02/20/15 Status: Ordered anastrozole 1 mg oral tablet 1 tablet = 1 mg, By Mouth, Daily, # 30 tablet, 2 Refills, Maintenance, 04/14/23 9:37:00 EST, Tablet, [id number], Partial fill upon patient request if the prescription is for a schedule II opioid drug., 161.2, cm, 04/14/23 8:56:00 EST, Height,... Start Date: 04/14/23 Status: Ordered atenolol 50 mg oral tablet = 50 mg, By Mouth, Daily, 0 Refills, Maintenance, 08/23/14 11:47:08, Tablet Start Date: 08/23/14 Status: Ordered Docusate 100, mg, By Mouth, 2 times a day, 28 tablet, 0, 0, 05/05/08 16:00:06, Hold for diarrhea, Print CULLEN Number, ADS [facility], 1.66041g+[id number], Constant Indicator Start Date: 05/05/08 Status: Ordered hydrALAZINE 25 mg oral tablet = 25 mg, By Mouth, 3 times a day, # 90 tablet, 0 Refills, Maintenance, 02/20/15 10:52:47, Tablet, 25 mg By Mouth 3 times a day Start Date: 02/20/15 Status: Ordered irbesartan 150 mg oral tablet 2 tablet = 300 mg, By Mouth, Daily, # 60 tablet, 0 Refills, Maintenance, 02/20/15 12:14:08, Tablet,2 tablet By Mouth Daily Start Date: 02/20/15 Status: Ordered lidocaine 5% topical film See Instructions, 1 patch to each upper back/shoulder for 12 hrs every day, # 14 pack/packet, 0 Refills, Maintenance, 01/29/15 11:16:46, Patch, 1 patch to each upper back/shoulder for 12 hrs every day Start Date: 01/29/15 Status: Ordered Lipitor 40 mg oral tablet 80 mg, 2, tablet, By Mouth, Daily at bedtime, 0 Refills Start Date: 02/24/05 Status: Ordered omeprazole 20 mg oral enteric coated capsule 1 capsule = 20 mg, By Mouth, Daily, # 30 capsule, 0 Refills, Maintenance, 01/27/15 18:21:16, EC Capsule Start Date: 01/27/15 Status: Ordered sertraline 100 mg oral tablet = 100 mg, By Mouth, Daily, 0 Refills, Maintenance, 08/23/14 11:51:34, Tablet Start Date: 08/23/14 Status: Ordered trazodone 150 mg oral tablet = 150 mg, By Mouth, Daily at bedtime, 0 Refills, Maintenance, 08/23/14 11:50:45, Tablet Start Date: 08/23/14 Status: Ordered Trileptal 300 mg oral tablet 1 tablet = 300 mg, By Mouth, Daily in AM, 0 Refills, Maintenance, 01/27/15 18:17:04 Start Date: 01/27/15 Status: Ordered Trileptal 300 mg oral tablet 1.5 tablet = 450 mg, By Mouth, Daily at bedtime, 0 Refills, Maintenance, 01/27/15 18:17:36 Start Date: 01/27/15 Status: Ordered Vitamin D3 oral tablet 1 tablet = 10 mcg, By Mouth, Daily, 0 Refills, Maintenance, 05/04/23 10:38:00 EST, Partial fill upon patient request if the prescription is for a schedule II opioid drug. Start Date: 05/04/23 Status: Ordered Vital Signs Most recent to oldest [Reference Range]: 1 Height 161.1 cm (07/27/23 9:36 AM) Weight 74.5 kg (07/27/23 9:36 AM) Oxygen Saturation [94-100 %] 97 % (07/27/23 9:36 AM) Pulse Rate [55-90 bpm] 89 bpm (07/27/23 9:36 AM) Body Mass Index [18.5-24.99 kg/m2] 28.71 kg/m2 *H* (07/27/23 9:36 AM) Blood Pressure [90-138/55-84 mm Hg] 133/ 54mm Hg (07/27/23 9:36 AM) Temperature [96.8-100.4 DegF] 97.5 DegF (07/27/23 9:36 AM) Mode of Delivery (Oxygen) Room air (07/27/23 9:36 AM) Blood pressure sites Arm, right (07/27/23 9:36 AM) Temperature Route Oral (07/27/23 9:36 AM) Dry Weight 74.5 kg (07/27/23 9:36 AM) Weight Obtained Via Standing scale (07/27/23 9:36 AM) Dry Weight Obtained Via Standing scale (07/27/23 9:36 AM) Social History Social History Type Response Smoking Status Former smoker; Other : quit >30yrs ago; entered on: 02/15/15 Sex Patient Care team information Care Team Personnel Name: Kelvin Pruett MD Position: Reference Physician Member Role: PCP Address: Address: [address] [place] [address] Drive [address] [place] [id number] Name: Ana Younger RN Position: S RN Member Role: Primary Care Nurse Name: Ann Gary RN Position: [facility] RN Member Role: Primary Care Nurse Name: Evelia Estrella RN Position: [facility] RN Member Role: Primary Care Nurse Name: Jaqueline ELI, Philly Sousa Position: [facility] Onco RN Member Role: Primary Care Nurse Name: Marv VEGA, Anila Position: [facility] Physician - Oncology Med Service: Hematology & Oncology Member Role: Admitting Physician Address: Address: [address] [place] [address] [place] [address]- Care Team Related Persons Name: ZOHAIB URBANO Address: home [address] [place] [address] Name: FRANCISCO ORLANDO Address: home [address] [place] [address]
--- OUTSIDE RECORDS SUMMARY | 2023-12-06 06:21 | XMS_ITS | Continuity of Care Document ---
Author Organization [facility] ancer Care Address [address] [place] [address]- Care Team Providers Care Sweeping Compound Blender Name Role Phone Flynn VEGA, Kelvin Johnson Primary Care Physician Encounter [facility] [place] [place] Date(s): 04/14/23 - 05/14/23 [facility] Care [address] [place] [id number] Allergies, Adverse Reactions, Alerts Substance Reaction Severity [...] 2 Refills, Maintenance, 04/14/23 9:37:00 EST, Tablet, [facility]pharm[facility] #[id number], Partial fill upon patient request if the [...] Hold for diarrhea, Print CULLEN Number, ADS [facility], [id number], Constant Indicator Start Date: 05/05/08 Status: Ordered [...] opioid drug. Start Date: 05/04/23 Status: Ordered Social History Social History Type Response Smoking Status Former smoker; Other : quit >30yrs ago; entered on: 02/15/15 Sex Patient Care team information Care Team Personnel Name: Flynn VEGA, Kelvin Johnson Position: Reference Physician Member Role: PCP Address: Address: [address] [place] [address] [place] [id number] Name: Ana Younger RN Position: S RN Member Role: Primary Care Nurse Name: Evelia Estrella RN Position: S RN Member Role: Primary Care Nurse Name: Ann Hernandez RN Position: S RN Member Role: Primary Care Nurse Name: Philly Parsons RN Position: S Onco RN Member Role: Primary Care Nurse Care Team Related Persons Name: ZOHAIB URBANO Address: home [address] [place] [address] Name: FRANCISCO ORLANDO Address: [address] [place] [address]
--- OUTSIDE RECORDS SUMMARY | 2023-12-06 06:21 | XMS_ITS | Continuity of Care Document ---
Author Organization [facility] RAD[facility]OLOG[facility] Address [address] [facility] [place] [address]- Care Team Providers Care Latcher Name Role Phone Flynn VEGA, Kelvin Johnson Primary Care Physician Encounter 04/14/23 - 06/22/23 [facility] RADIOLOGY AND IMAGING [address], [address] [place] [address]- Attending Physician: Anila Fair MD Admitting Physician: Anila Fair MD Referring Physician: Anila Fair MD Allergies, Adverse Reactions, Alerts Substance Reaction [...] 2 Refills, Maintenance, 04/14/23 9:37:00 EST, Tablet, [facility] #[id number], Partial fill upon patient request if the [...] Hold for diarrhea, Print CULLEN Number, [facility], 1.58561w+[id number], Constant Indicator Start Date: 05/05/08 Status: Ordered [...] Reference Physician Member Role: PCP Address: Address: [address] [place] [address]- Name: Ana Younger RN Position: [facility] RN Member Role: Primary Care Nurse Name: Evelia Estrella RN Position: S RN Member Role: Primary Care Nurse Name: Ann Hernandez RN Position: [facility] RN Member Role: Primary Care Nurse Name: Jaqueline ELI, Philly Sousa Position: [facility] Onco RN Member Role: Primary Care Nurse Name: Marv VEGA, Anila Position: [facility] Physician - Oncology Med Service: Hematology & Oncology Member Role: Referring Physician Address: Address: [address] [place] [address] [place] [address]- Care Team Related Persons Name: ZOHAIB URBANO Address: [address] [place] [address] Name: FRANCISCO ORLANDO Address: [address] [place] [address]
--- OUTSIDE RECORDS SUMMARY | 2023-12-06 06:21 | XMS_ITS | Continuity of Care Document ---
Author Organization [facility] ancer Care Address [address] [place] [address]- Care Team Providers Care Cloth Measurer Machine Name Role Phone Kelvin Pruett MD Primary Care Physician Encounter [facility] [id number] Date(s): 07/25/23 - 08/24/23 [facility] Care [address] [place] [id number] Attending Physician: Ad Mariscal Admitting Physician: Admtr, Ad Referring Physician: Admtr, Ar8 Allergies, Adverse Reactions, Alerts Substance Reaction Severity [...] Refills, Maintenance, 04/14/23 9:37:00 EST, Tablet, [facility]/pharmacy #[id number], Partial fill upon patient request if the [...] Hold for diarrhea, Print CULLEN Number, [facility], 1.71266w+[id number], Constant Indicator Start Date: 05/05/08 Status: Ordered [...] quit >30yrs ago; entered on: 02/15/15 Sex Laboratory * Event Display: Genetic Labs, Non [facility] Authored Date: Patient Care team information Care Team Personnel Name: Flynn VEGA, Kelvin Johnson Position: Reference Physician Member Role: PCP Address: Address: [address] [place] [address]- Name: Ana Younger RN Position: S RN Member Role: Primary Care Nurse Name: Ann Gary RN Position: S RN Member Role: Primary Care Nurse Name: Evelia Estrella RN Position: S RN Member Role: Primary Care Nurse Name: Philly Parsons RN Position: [facility] Onco RN Member Role: Primary Care Nurse Care Team Related Persons Name: ZOHAIB URBANO Address: [address] [place] [address] Name: FRANCISCO ORLANDO Address: [address] [place] [address]
--- OUTSIDE RECORDS SUMMARY | 2023-12-06 06:21 | XMS_ITS | Continuity of Care Document ---
Author Organization [facility] RADIOLOGY A [facility] IMAG[facility] [place] Address [address] [facility] [place] [address]- Care Team Providers Care Wet Wheeler Name Role Phone Flynn VEGA, Kelvin Johnson Primary Care Physician [phone] Encounter 07/14/23 - 07/21/23 [facility] RADIOLOGY AND IMAGING [address], [address] [place] [address]- Attending Physician: Anila Fair MD Admitting Physician: [...] 2 Refills, Maintenance, 04/14/23 9:37:00 EST, Tablet, [facility] #[id number], Partial fill upon patient request if the [...] for diarrhea, Print CULLEN Number, [facility], 1.30929s+[id number], Constant Indicator Start Date: 05/05/08 Status: Ordered [...] opioid drug. Start Date: 05/04/23 Status: Ordered Results Radiology Reports * Exam Date Time Procedure Performing Provider Status 07/14/23 2:48 PM Dexa Bone Density (Axial) Nish Moreira; Auth (Verified) Notes: (Dexa Bone Density (Axial)) Reason For Exam: hx breast cancer;Medication Use Associated with Low Bone Mass RESULT: Dexa Bone Density (Axial) EXAMINATION: DEXA bone density scan. CLINICAL INDICATION: Postmenopausal COMPARISON: None. TECHNIQUE: DEXA scan was performed using Search to Phone SL hardware and software package. Density measurements were obtained at the L1-L4 vertebra in the lumbar spine and also at the left hip. FINDINGS: Lumbar spine T score -1.8 Left total hip T score -0.8 Left femoral neck T score -0.9 10 year fracture risk Major osteoporotic fracture: 11% Hip fracture: 2% IMPRESSION: Bone mineral density measurements according to WHO classification: Osteopenia. WSN: [id number] Ordering Physician: Anila Fair Dictated By: Valente Live MD Dictated Date/Time: 07/21/23 1:33 pm Reviewed By: Valente Live MD Signed By: Valente Live MD Signed Date/Time: 07/21/23 1:33 pm Transcribed By: SAVANNAH Transcribed Date/Time: 07/21/23 1:32 pm Social History Social History Type Response Smoking Status Former smoker; Other : quit >30yrs ago; entered on: 02/15/15 Sex Patient Care team information Care Team Personnel Name: Kelvin Pruett MD Position: Reference Physician Member Role: PCP Address: Address: [address] [place] [address] [place] [address]- Name: Ana Younger RN Position: S RN Member Role: Primary Care Nurse Name: Evelia Estrella RN Position: S RN Member Role: Primary Care Nurse Name: Ann Hernandez RN Position: [facility] RN Member Role: Primary Care Nurse Name: Jaqueline ELI, Philly Sousa Position: [facility] Onco RN Member Role: Primary Care Nurse Name: Anila Fair MD Position: [facility] Physician - Oncology Med Service: Hematology & Oncology Member Role: Referring Physician Address: Address: [address] [place] [address] [place] [address]- Care Team Related Persons Name: ZOHAIB URBANO Address: [address] [place] [address] Name: FRANCISCO ORLANDO Address: [address] [place] [address]
--- OUTSIDE RECORDS SUMMARY | 2023-12-06 06:21 | XMS_ITS | Continuity of Care Document ---
Author Organization [facility] Address [address] [place] [address]- Care Team Providers Care Drawer Fitter Name Role Phone Flynn VEGA, Kelvin Johnson Primary Care Physician Encounter [facility] [place] Date(s): 03/09/23 - 07/04/23 [facility] [address] [place] [id number]- Discharge Disposition: A-D/C Home Attending Physician: Anila Fair MD Admitting Physician: Elliott Sheehan MD Referring Physician: Not on Staff, Referring MD Allergies, Adverse Reactions, Alerts Substance Reaction [...] 2 Refills, Maintenance, 04/14/23 9:37:00 EST, Tablet, [facility]/pharmacy #[id number], Partial fill upon patient request if the [...] for diarrhea, Print CULLEN Number, ADS OPPT, [id number], Constant Indicator Start Date: 05/05/08 Status: Ordered [...] Most recent to oldest [Reference Range]: 1 2 Height 161.1 cm (05/04/23 9:01 AM) 161.2 cm (04/14/23 8:56 AM) Weight 74.4 kg (05/04/23 9:01 AM) 74.4 kg (04/14/23 8:56 AM) Oxygen Saturation [94-100 %] 95 % (05/04/23 9:01 AM) 97 % (04/14/23 8:56 AM) Pulse Rate [55-90 bpm] 79 bpm (05/04/23 9:01 AM) 72 bpm (04/14/23 8:56 AM) Body Mass Index [18.5-24.99 kg/m2] 28.67 kg/m2 *H* (05/04/23 9:01 AM) 28.63 kg/m2 *H* (04/14/23 8:56 AM) Blood Pressure [90-138/55-84 mm Hg] 131/ 51mm Hg (05/04/23 9:01 AM) 141/63mm Hg *H* (04/14/23 8:56 AM) Temperature [96.8-100.4 DegF] 97.9 DegF (05/04/23 9:01 AM) 97.7 DegF (04/14/23 8:56 AM) Mode of Delivery (Oxygen) Room air (04/14/23 8:56 AM) Blood pressure sites Arm, right (05/04/23 9:01 AM) Arm, left (04/14/23 8:56 AM) Temperature Route Oral (05/04/23 9:01 AM) Oral (04/14/23 8:56 AM) Dry Weight 74.4 kg (05/04/23 9:01 AM) 74.4 kg (04/14/23 8:56 AM) Weight Obtained Via Standing scale (05/04/23 9:01 AM) Standing scale (04/14/23 8:56 AM) Dry Weight Obtained Via Standing scale (05/04/23 9:01 AM) Standing scale (04/14/23 8:56 AM) Social History Social History Type Response Smoking Status Former smoker; Other : quit >30yrs ago; entered on: 02/15/15 Sex Laboratory * Event Display: Genetic Labs, Non [facility] Authored Date: * Event Display: Genetic Labs, Non [facility] Authored Date: Note * Lauren Coats: PERFORM, SIGN, VERIFY Event Display: Patient Education/Instruction Authored Date: [id number] [facility] *Heme/Onc Adult Clinical Summary Name TL ORLANDO Age 82 Years 1940 PCP Flynn VEGA, Kelvin Johnson PCP Visit Date 03/09/2023 14:07:00 Additional Instructions: Scheduled Appointments?? Future Appointments ?No Future Appointments Scheduled Follow-Up Instructions ?? With: Address: When: Anila Fair [address] [place] [address] [place] [address] Business (1) In 104 days 07/27/2023 Diagnosis Medications: Please continue your medications until treatment is completed or stopped by your provider. Discuss any questions related to medications with your provider. New Medications [facility]/pharmacy #[id number], [address], [place] [id number], [phone] Anastrozole (anastrozole 1 mg oral tablet) 1 tab(s) Oral Daily. Refills: 2. Next Dose: Medications to Continue with No Changes These medications were not printed or sent to your pharmacy Amlodipine (amLODIPine 10 mg oral tablet) 10 Milligram Oral Daily. Refills: 0. Next Dose: Atenolol (atenolol 50 mg oral tablet) 50 Milligram Oral Daily. Next Dose: Atorvastatin (Lipitor 40 mg oral tablet) 2 tab(s) Oral Daily at Bedtime. Next Dose: Docusate 100 Milligram Oral twice a day. Hold for diarrhea. Refills: 0. Next Dose: HydrALAZINE (hydrALAZINE 25 mg oral tablet) 25 Milligram Oral 3 times a day. Refills: 0. Next Dose: Irbesartan (irbesartan 150 mg oral tablet) 2 tab(s) Oral Daily. Refills: 0. Next Dose: Lidocaine Topical (lidocaine 5% topical film) 1 patch to each upper back/shoulder for 12 hrs every day. Refills: 0. Next Dose: Omeprazole (omeprazole 20 mg oral enteric coated capsule) 1 capsule Oral Daily. Next Dose: Oxcarbazepine (Trileptal 300 mg oral tablet) 1 tab(s) Oral Daily in the morning. Next Dose: Oxcarbazepine (Trileptal 300 mg oral tablet) 1.5 tab(s) Oral Daily at Bedtime. Next Dose: Oxycodone / Acetaminophen (acetaminophen-oxyCODONE 325 mg-5 mg oral tablet) 1 tab(s) Oral 4 times aday as needed Pain , Moderate. Refills: 0. Next Dose: Sertraline (sertraline 100 mg oral tablet) 100 Milligram Oral Daily. Next Dose: Trazodone (trazodone 150 mg oral tablet) 150 Milligram Oral Daily at Bedtime. Next Dose: Allergy Info:?? Dilantin; aspirin Medications Given This Visit Future Orders ?No future orders Vital Signs Height 161.2 cm Weight 74.4 kg BMI 28.63 kg/m2 Blood Pressure 141 mm Hg/63 mm Hg Temperature 97.7 DegF Pulse Rate 72 bpm Respiratory Rate 02 Sat Mode of Delivery 97 %/Room air You can now view a summary of your hospital visit from the comfort of your home through a free online portal called [employer]. [employer] is a website that allows you to securely view your medical information including discharge summary, medications and follow-up visits. ??You can alsosend a secure electronic message to your doctor???s office to request appointments, renew medications or just ask a question. You can enroll at [email or web address] or register during your next office visit. Disclaimer:?? The information provided is of a general nature and is intended to be used in conjunction with the recommendations and advice of your health care practitioner. ??Every effort has been made to ensure that the information provided is accurate and complete at the time it is provided to you however, as your needs change, or, as new ??information becomes available, different or additional instructions may be required. If you have questions, please consult with your primary care provider or pharmacist, as appropriate. ??This information is not intended to serve as substitution for assessment and evaluation by a qualified health care provider. If you do not have a primary care provider, you may find a [facility] provider by calling [facility] DIY Link at [phone]. [facility], in keeping with [facility] guidance, no longer requires face masks for staff, patientsor visitors in most situations. Similar to time spent indoors at other locations, there is the chance that you were exposed to respiratory viruses during your time with us (such as flu or COVID-19).? If you develop symptoms concerning for a viral respiratory infection, please seek testing (and treatment if indicated) from your medical provider or home test kit. For information about the plan of care including goals and instructions for your diagnosis, please see the patient education orders section of this document. Patient Education Materials?? The content of this educational material or handout may have been modified, supplemented, or adapted from its original content and format to support your individualized medical care. Patient Care team information Care Team Personnel Name: Flynn VEGA, Kelvin Johnson Position: Reference Physician Member Role: PCP Address: Address: [address] [place] [id number]- Name: Ana Younger RN Position: [facility] RN Member Role: Primary Care Nurse Name: Evelia Estrella RN Position: S RN Member Role: Primary Care Nurse Name: Ann Hernandez RN Position: [facility] RN Member Role: Primary Care Nurse Name: Jaqueline ELI, Philly Sousa Position: [facility] Onco RN Member Role: Primary Care Nurse Name: Marv VEGA, Anila Position: [facility] Physician - Oncology Med Service: Hematology & Oncology Member Role: Attending Physician Address: Address: [address] [place] [address] [place] [address]- Care Team Related Persons Name: ZOHAIB URBANO Address: home [address] [place] [address] Name: FRANCISCO ORLANDO Address: home [address] [place] [address]
--- NOTE | 2023-12-06 06:31 | PC.NURSE ---
denies deficits from stroke per patient
[2023-12-06 07:07] LABS: Hematocrit 31.8 % (37.0-47.0); Hemoglobin 10.6 g/dl (12.0-16.0)
[2023-12-06] MEDS: Lactated Ringers 1,000 ML 100 ML IVCONT ×3 (07:11→19:41)
--- NOTE | 2023-12-06 07:21 | MHC.SHP ---
Pre-Procedural Eval Section A - 24 Hr Update-Section A only Date of Service: 12/06/23 The patient is an INPATIENT: No Changes since office visit: No Cold of Flu in the past 2 weeks, No New Medical Problems, No Changes in Medication and No Patient answered all questions The patient has been examined within 24 hours of the surgical procedure. The History & Physical has been completed within 30 days and I have reviewed it.: Yes Section B - Complete if H&P > 30 days Chief Complaint: L TKA Allergies: Allergies Allergy/AdvReac Type Severity Reaction Status Date / Time phenytoin [Dilantin] Allergy Severe Hives Verified 12/06/23 06:23 sertraline [SERTRALINE] Allergy Severe DROPPED Verified 12/01/23 12:05 SODIUM LEVEL, BP increase Sodium drop aspirin [ASPIRIN] Allergy Intermediate RISK OF Verified 12/01/23 12:05 BLEDING NSAIDS (Non-Steroidal Allergy Unknown risk of Verified 12/01/23 12:05 Anti-Inflamma bleeding Plan I have reviewed the history and physical and performed a pertinent physical examination on my patient. No changes have occurred unless specified. Time Spent With Patient Time: Total time managing care of this patient today ____ minutes.
--- NOTE | 2023-12-06 08:18 | P.CONAN_ITS ---
HPI - Anesthesia Eval Consult details Narrative: left TKA PMFSH Active Problems Active Problems: All Active Problems Anemia (Acute) Preoperative examination (Acute) Pharyngitis (Acute) PAC (premature atrial contraction) (Acute) Arthritis of left knee (Acute) Respiratory syncytial virus (RSV) (Acute) Cellulitis of breast (Acute) Breast cancer, left (Acute) Breast calcification, left (Acute) Excessive cerumen in both ear canals (Acute) Overactive bladder (Acute) Elevated TSH (Acute) Impaired fasting blood sugar (Acute) Medicare annual wellness visit, subsequent (Acute) Rib pain on right side (Acute) Osteoarthritis of left knee (Acute) Encounter for annual wellness exam in Medicare patient (Acute) Torticollis, acute (Acute) Osteopenia (Acute) Constipation (Acute) Acquired hypothyroidism (Acute) Overweight (BMI 25.0-29.9) (Acute) Urinary frequency (Acute) Allergic rhinitis (Acute) Degenerative disc disease, cervical (Acute) Neck pain (Acute) Depression (Acute) Anxiety (Acute) Insomnia (Acute) Epilepsy (Acute) Obesity (BMI 30-39.9) (Acute) Osteoarthritis (Acute) Benign essential hypertension (Acute) Pure hypercholesterolemia (Acute) Rib pain on right side (Acute) Left shoulder pain (Acute) Recurrent dry cough (Acute) Pain of right scapula (Acute) Right-sided thoracic back pain (Acute) Past Medical History Medical History Seasonal allergies Osteopenia Constipation Acquired hypothyroidism Overweight (BMI 25.0-29.9) Cataract Seizures Stroke (~2000) Ash ash disease (~2000) Urinary frequency Allergic rhinitis Degenerative disc disease, cervical Neck pain Depression Anxiety Insomnia Epilepsy Obesity (BMI 30-39.9) Osteoarthritis Benign essential hypertension Pure hypercholesterolemia Rib pain on right side Left shoulder pain Recurrent dry cough Pain of right scapula Right-sided thoracic back pain Family History Family History Father Chronic mental illness Mother Hypertension Other Mental health problem Family history of problems with anesthesia: No Surgical History Surgical History H/O breast surgery Hx of colonoscopy History of kidney surgery Status post cervical disc replacement History of knee replacement procedure of right knee Hx of knee surgery History of Problems with Anesthesia: No Social History Social History Household Members: None Housing: House Are you a primary care administrative tech to a significant other at home: No Do you presently have visiting nurse or other home services: No Alcohol intake: current Alcohol intake frequency: holidays/special occasions only Alcohol type: wine Patient Tobacco Use Status: Former Tobacco user Tobacco use type: Cigarette Years Smoked: 10 Smoked in Last 30 Days: No e-Cigarette/Vaping Use: Never Used Second Hand Smoke Exposure: No Use of substances other than those prescribed or required for medical reasons: No Have you been hit, kicked, punched, or otherwise hurt by someone within the past year? If so, by whom?: No Are you DNR?: No Advance Directives: Yes Advance Directives Information Provided: Yes Advance Directives on File: Yes Advance Directives Date on File: 05/23/23 Recently lost weight without trying: Yes How much weight loss: 2-13 pounds Eating poorly because of decreased appetite: No Nutrition screen score: 3 Nutrition Risks: Surgical patient >75years service: No Current occupational status: retired Cognitive needs: No Hearing needs: No Vision needs: No Meds Allergies Allergy/AdvReac Type Severity Reaction Status Date / Time phenytoin [Dilantin] Allergy Severe Hives Verified 12/06/23 06:23 sertraline [SERTRALINE] Allergy Severe DROPPED Verified 12/01/23 12:05 SODIUM LEVEL, BP increase Sodium drop aspirin [ASPIRIN] Allergy Intermediate RISK OF Verified 12/01/23 12:05 BLEDING NSAIDS (Non-Steroidal Allergy Unknown risk of Verified 12/01/23 12:05 Anti-Inflamma bleeding Active Medications: Current Medications Lactated Ringer's (Lr) 1,000 mls @ 100 mls/hr IVCONT .Q10H ALANA Last Admin: 12/06/23 07:11 Dose: 100 mls/hr Home Medications ?Medication ?Instructions ?Recorded ?Confirmed ?Last Taken ?Type trazodone 100 mg tablet 100 mg PO BEDTIME PRN Insomnia 10/02/23 12/01/23 Unknown History loratadine 10 mg tablet (Claritin) 10 mg PO DAILY PRN Allergy Symptoms 11/23/23 12/01/23 Unknown History lorazepam 0.5 mg tablet 0.5 mg PO BEDTIME PRN anxiety 11/23/23 12/01/23 12/06/23 History oxcarbazepine 300 mg tablet 300 mg PO QAM 11/23/23 12/01/23 12/06/23 History oxcarbazepine 300 mg tablet 450 mg PO BEDTIME 11/23/23 12/01/23 12/05/23 History oxycodone-acetaminophen 5 mg-325 1 tab PO Q4-6H PRN Pain 11/23/23 12/01/23 Unknown History mg tablet (Percocet) atorvastatin 80 mg tablet 80 mg PO BEDTIME 12/06/23 12/06/23 12/05/23 History Exam Height,Weight and Vital Signs: Height 5 ft 3 in Weight 74.446 kg Last Vital Signs Temp 98.3 F 12/06/23 07:02 Pulse 62 12/06/23 07:02 Resp 16 12/06/23 07:02 BP 141/60 H 12/06/23 07:02 Pulse Ox 95 12/06/23 07:02 O2 Del Method Room Air 12/06/23 07:02 Pertinent Lab Results Pertinent Lab Results: Laboratory Tests 11/23/23 11/23/23 12/06/23 13:30 14:10 06:26 Hgb 10.6 L Hct 31.8 L Nasal Screen MRSA (PCR) NEGATIVE Nasal S. aureus Screen NEGATIVE Nasal MRSA/S.aureus Interp SEE NOTE Blood Type AB Positive Antibody Screen NEGATIVE Crossmatch See Detail Crossmatch (AHG) See Detail Airway Heart: rrr Lungs: cta Assessment and Plan Assessment Anesthesia Assessment: Anesthesia Plan Discussed (refuses to remove finger ring, accepts ALL risks ss with finger swelling and loss of circulation if fluid requirements increase.) Final Anesthetic Review Family History of Problems with Anesthesia: No History of Problems with Anesthesia: No NPO: Yes ASA Class: III Final Preanesthetic Review: No Changes in Pt Med Stat, Meds/Allgs Chart Reviewed, Consent Obtained/Reviewed and Anes Risks/Benef Reviewed Patient Risk: Intermediate Procedure Risk: Intermediate Anesthetic Plan Anesthetic Plan: MAC:, Spinal, Regional Block and Agree w/ Assess. and Plan Disposition: Standard PACU
--- NOTE | 2023-12-06 09:23 | P.BOP_ITS ---
Brief Operative Note Date of Service: 12/06/23 Pre-op diagnosis: Left knee OA Post-op diagnosis: same Procedure: Left TKA Implants: [place] Triathlon cemented posterior stabilized 07/29/10 Surgeon: Emory No MD Anesthesia: regional and spinal Was an Biodiesel Processing Technician used for this Procedure?: No Biodiesel Processing Technician: Charline Williamson Estimated blood loss (mL): 20 Tourniquet time (min): 54 IV fluids (mL): 800 Pathology: other Condition: stable Disposition: PACU Assessment and Plan (No Qualifiers) Assessment and Plan (1) Status post total left knee replacement: Status: Acute Plan: Lovenox if ok with medicine given h/o hemorragic stroke. ASA cannot tolerate WBAT
[2023-12-06] MEDS: oxyCODONE HCl Immed Release 5 MG TABLET 10 MG PO ×2 (10:28→14:32)
[2023-12-06] MEDS: Celecoxib 200 MG CAPSULE PO ×2 (10:28→19:38)
--- NOTE | 2023-12-06 10:47 | HO.PM.IMCN ---
History of Present Illness Data of Consult Service Date: 12/06/23 Primary Care Provider: Kelvin Pruett MD [facility] Reason for consult: Medical management This is a 83-year-old female with pertinent history of hypertension, mixed hyperlipidemia, history of breast cancer status post lumpectomy in 2022, mood MS syndrome, hypothyroidism, history of hemorrhagic CVA in 2000 who underwent elective left TKA by Dr. No on 12/05 and hospital medicine team consulted for routine medical management. Patient states she is doing okay after surgery. Is maintaining normal oxygen saturation on room air. No overt complaints of pain. Patient states her last CVA was in 2000. No hemorrhagic CVA since 2000. Patient has no new complaints at this time. Review of Systems Cardiovascular: Cardiovascular: Reports no additional cardiovascular complaints Respiratory: Respiratory: Reports no additional respiratory complaints Gastrointestinal: Gastrointestinal: Reports no additional gastrointestinal complaints Genitourinary: Genitourinary: Reports no additional female genitourinary complaints [facility] Medical History Seasonal allergies Osteopenia Constipation Acquired hypothyroidism Overweight (BMI 25.0-29.9) Cataract Seizures Stroke (~2000) Ash ash disease (~2000) Urinary frequency Allergic rhinitis Degenerative disc disease, cervical Neck pain Depression Anxiety Insomnia Epilepsy Obesity (BMI 30-39.9) Osteoarthritis Benign essential hypertension Pure hypercholesterolemia Rib pain on right side Left shoulder pain Recurrent dry cough Pain of right scapula Right-sided thoracic back pain Family History Father Chronic mental illness Mother Hypertension Other Mental health problem Surgical History H/O breast surgery Hx of colonoscopy History of kidney surgery Status post cervical disc replacement History of knee replacement procedure of right knee Hx of knee surgery Social History Household Members: None Housing: House Are you a primary client care representative to a significant other at home: No Do you presently have visiting nurse or other home services: No Alcohol intake: current Alcohol intake frequency: holidays/special occasions only Alcohol type: wine Patient Tobacco Use Status: Former Tobacco user Tobacco use type: Cigarette Years Smoked: 10 Smoked in Last 30 Days: No e-Cigarette/Vaping Use: Never Used Second Hand Smoke Exposure: No Use of substances other than those prescribed or required for medical reasons: No Have you been hit, kicked, punched, or otherwise hurt by someone within the past year? If so, by whom?: No Do you feel safe in your current relationship?: No Current Relationship Is there a partner from a previous relationship who is making you feel unsafe now?: No Are you made to feel afraid or neglected: No Are you DNR?: No Advance Directives: Yes Advance Directives Information Provided: Yes Advance Directives on File: Yes Advance Directives Date on File: 05/23/23 Do you have a plan to hurt others: No Plan Recently lost weight without trying: No How much weight loss: 2-13 pounds Eating poorly because of decreased appetite: No Nutrition screen score: 1 Nutrition Risks: No Nutritional Risk Patient : No : No Poor oral hygiene: No service: No Current occupational status: retired Cognitive needs: No Hearing needs: No Vision needs: No Meds Allergies Allergy/AdvReac Type Severity Reaction Status Date / Time phenytoin [Dilantin] Allergy Severe Hives Verified 12/06/23 06:23 sertraline [SERTRALINE] Allergy Severe DROPPED Verified 12/01/23 12:05 SODIUM LEVEL, BP increase Sodium drop aspirin [ASPIRIN] Allergy Intermediate RISK OF Verified 12/01/23 12:05 BLEDING NSAIDS (Non-Steroidal Allergy Unknown risk of Verified 12/01/23 12:05 Anti-Inflamma bleeding Active Medications: Current Medications Acetaminophen (Acetaminophen 325 Mg Tablet) 650 mg PO Q6H PRN PRN Reason: Pain, Mild (Pain Scale 1-3), fever or headache Amlodipine Besylate (Amlodipine Besylate 5 Mg Tablet) 5 mg PO DAILY [facility]; Protocol Anastrozole (Anastrozole 1 Mg Tablet) 1 mg PO DAILY [facility] Atenolol (Atenolol 50 Mg Tablet) 50 mg PO DAILY [facility]; Protocol Last Admin: 12/06/23 10:45 Dose: Not Given Atorvastatin Calcium (Atorvastatin Calcium 80 Mg Tablet) 80 mg PO BEDTIME [facility] Celecoxib (Celecoxib 200 Mg Capsule) 200 mg PO BID [facility] Last Admin: 12/06/23 10:28 Dose: 200 mg Enoxaparin Sodium (Enoxaparin Sodium 40 Mg/0.4 Ml Syringe) 40 mg SUBCUT Q24H [facility] Hydromorphone HCl (Hydromorphone Hcl 0.5 Mg/0.5 Ml Syringe) 0.25 mg IVPUSH Q4H PRN; Protocol PRN Reason: Pain, Severe (Pain Scale 7-10) Lactated Ringer's (Lr) 1,000 mls @ 100 mls/hr IVCONT .Q10H [facility] Last Admin: 12/06/23 10:25 Dose: 100 mls/hr Cefazolin Sodium/Dextrose (Ancef) 2 gm in 50 mls @ 100 mls/hr IV POSTOP ONE Stop: 12/06/23 14:29 Levothyroxine Sodium (Levothyroxine Sodium 50 Mcg Tablet) 50 mcg PO DAILY@0600 [facility] Last Admin: 12/06/23 10:45 Dose: Not Given Loratadine (Loratadine 10 Mg Tablet) 10 mg PO DAILY PRN PRN Reason: Allergy Symptoms Lorazepam (Lorazepam 0.5 Mg Tablet) 0.5 mg PO BEDTIME PRN PRN Reason: anxiety Mirtazapine (Mirtazapine 15 Mg Tablet) 15 mg PO BEDTIME [facility] Non-Formulary Medication (Sennosides [Senna]) 8.6 mg PO BEDTIME PRN PRN Reason: constipation Ondansetron HCl (Ondansetron Hcl 4 Mg/2 Ml Vial) 4 mg IVPUSH ONCE PRN PRN Reason: Nausea and Vomiting Stop: 12/06/23 14:19 Oxcarbazepine (Oxcarbazepine 150 Mg Tablet) 450 mg PO BEDTIME [facility] Oxcarbazepine (Oxcarbazepine 300 Mg Tablet) 300 mg PO QAM [facility] Oxycodone HCl (Oxycodone Hcl Immed Release 5 Mg Tablet) 10 mg PO Q4H PRN PRN Reason: Pain, Moderate(Pain Scale 4-6) Last Admin: 12/06/23 10:28 Dose: 10 mg Sodium Chloride (0.9 % Sodium Chloride Flush 3 Ml Syringe) 3 ml IVFLUSH QSHIFT [facility] Last Admin: 12/06/23 10:45 Dose: Not Given Trazodone HCl (Trazodone Hcl 100 Mg Tablet) 100 mg PO BEDTIME PRN PRN Reason: Insomnia Valsartan (Valsartan 160 Mg Tablet) 160 mg PO DAILY [facility] Last Admin: 12/06/23 10:45 Dose: Not Given Home Medications ?Medication ?Instructions ?Recorded ?Confirmed ?Last Taken ?Type trazodone 100 mg tablet 100 mg PO BEDTIME PRN Insomnia 10/02/23 12/01/23 Unknown History loratadine 10 mg tablet (Claritin) 10 mg PO DAILY PRN Allergy Symptoms 11/23/23 12/01/23 Unknown History lorazepam 0.5 mg tablet 0.5 mg PO BEDTIME PRN anxiety 11/23/23 12/01/23 12/06/23 History oxcarbazepine 300 mg tablet 300 mg PO QAM 11/23/23 12/01/23 12/06/23 History oxcarbazepine 300 mg tablet 450 mg PO BEDTIME 11/23/23 12/01/23 12/05/23 History oxycodone-acetaminophen 5 mg-325 1 tab PO Q4-6H PRN Pain 11/23/23 12/01/23 Unknown History mg tablet (Percocet) atorvastatin 80 mg tablet 80 mg PO BEDTIME 12/06/23 12/06/23 12/05/23 History Physical Exam Vital Signs and Narrative: Vital Signs: Last Vital Signs Temp 96.9 F 12/06/23 10:22 Pulse 65 12/06/23 10:22 Resp 16 12/06/23 10:22 BP 175/77 H 12/06/23 10:22 Pulse Ox 97 12/06/23 10:22 O2 Del Method Room Air 12/06/23 10:22 O2 Flow Rate 6 12/06/23 09:28 BMI result Body Mass Index 29.1 Elderly female lying in bed in no distress Neck supple, no JVD Regular rate and rhythm, S1-S2 heard Regular breath sounds bilaterally, no wheezing or crackles appreciated Abdomen soft nontender, no guarding, no rigidity Patient is awake, alert and oriented to self, place, time and person ; no focal motor deficit Psych: Normal mood Results Labs 12/06/23 06:26 Assessment and Plan (1) Status post total left knee replacement: Status: Acute Plan This is a 83-year-old female with pertinent history of hypertension, mixed hyperlipidemia, history of breast cancer status post lumpectomy in 2022, mood MS syndrome, hypothyroidism, history of hemorrhagic CVA in 2000 who underwent elective left TKA by Dr. No on 12/05 and hospital medicine team consulted for routine medical management. #. Postop day 1 status post left TKA: Management including analgesia as per Orthopedic surgery #. History of hemorrhagic CVA: Okay for prophylactic Lovenox 40 mg daily. Is not on antiplatelet agent but is on high-intensity statin #. Hypertension: Continue amlodipine, atenolol and irbesartan #. Hypothyroidism: On Synthroid #. Mood disorder: On lorazepam p.r.n., mirtazapine and trazodone #. Seizure disorder: On oxcarbamazepine #. History of breast cancer: On anastrozole Thank you for the consult. We will sign off. Please reach out in case we can help.
--- NOTE | 2023-12-06 11:11 | PHA.MEDREC ---
Pharmacy Consult ? Medication Reconciliation Pharmacy has reviewed the medication reconciliation done by nursing and also went to talk to patient. Patient confirmed she is still taking amlodipine 5 mg and atorvastatin 80 mg. She takes lorazepam 0.5 mg at bedtime. She takes oxcarbazepine 300 mg in the morning and 450 mg at bedtime. She is not taking senna 8.6 mg nor trazodone 100 mg.
[2023-12-06 11:43] LABS: Creatinine Clr Calc Pharmacy 41.7; Estimated Glomerular Filt Rate 52
[2023-12-06] MEDS: Anastrozole 1 MG TABLET PO (12:39)
--- NOTE | 2023-12-06 14:02 | MHC.CM.PN ---
IMM 12/06/23 S/P L TKA. She lives by herself. Her dtr lives close by. She assists with shopping. Patient used a cane prior to admit. She has a walker and cane at home. She also has grabars in the shower. She states that she is independent with Adls. Patients preference for Acute Rehab is [facility]. The PT deandra has been sent to the facility. [facility] Acute Rehab via BLS.
[2023-12-06] MEDS: Acetaminophen 325 MG TABLET 650 MG PO (14:31)
[2023-12-06] MEDS: ceFAZolin Sodium/Dextrose,Iso 2 GM/50 ML PIGGYBACK IV (14:32)
[2023-12-06] MEDS: HYDROmorphone HCl 0.5 MG/0.5 ML SYRINGE 0.25 MG IVPUSH ×3 (16:32→23:47)
[2023-12-06] MEDS: 0.9 % Sodium Chloride Flush 3 ML SYRINGE IVFLUSH (16:33)
[2023-12-06] MEDS: Atorvastatin Calcium 80 MG TABLET PO (19:36)
[2023-12-06] MEDS: OXcarbazepine 150 MG TABLET 450 MG PO (19:38)
[2023-12-06] MEDS: Mirtazapine 15 MG TABLET PO (19:40)
[2023-12-06] MEDS: LORazepam 0.5 MG TABLET PO (21:51)
[2023-12-07] VITALS (9 sets, daily range): BP systolic 138–163; BP diastolic 64–79; PULSE 64–91; RESP 16–18; TEMP 36.2–36.8; O2SAT 93–97
[2023-12-07] MEDS: oxyCODONE HCl Immed Release 5 MG TABLET 10 MG PO ×4 (02:12→21:27)
[2023-12-07] MEDS: Acetaminophen 325 MG TABLET 650 MG PO ×3 (02:12→17:25)
[2023-12-07] MEDS: HYDROmorphone HCl 0.5 MG/0.5 ML SYRINGE 0.25 MG IVPUSH (05:13)
[2023-12-07] MEDS: Levothyroxine Sodium 50 MCG TABLET PO (05:14)
[2023-12-07] MEDS: Lactated Ringers 1,000 ML 100 ML IVCONT ×2 (05:14→15:13)
[2023-12-07 06:09] LABS: MANUAL DIFF FLAG NO
[2023-12-07 06:14] LABS: Basophils Percent Auto 0.1 % (0-2); Eosinophils Percent Auto 0.1 % (0-4); Hematocrit 25.8 % (37.0-47.0); Hemoglobin 8.9 g/dl (12.0-16.0); Imm Gran Abs Auto 0.05 X10*3/uL (0.00-0.03); Imm Gran Pct Auto 0.5 % (0.0-0.4); Lymphocytes Absolute Auto 1.3 X10*3/uL (1.2-4.9); Lymphocytes Percent Auto 14.4 % (20-40); Mean Corpuscular HGB Conc 34.5 g/dl (31.0-35.0); Mean Corpuscular Hemoglobin 31.3 pg (27.0-33.0); Mean Corpuscular Volume 90.8 fL (80.0-98.0); Mean Platelet Volume 9.6 fL (9.4-12.3); Monocytes Percent Auto 10.5 % (2-11); Neutrophils Absolute Auto 6.9 x10*3/uL (2.0-8.3); Neutrophils Percent Auto 74.4 % (45-73); Platelet Count 235 X10*3/uL (160-400); Red Blood Count 2.84 X10*6/uL (4.20-5.50); Red Cell Distribution Width 12.7 % (11.0-16.0); White Blood Count 9.3 X10*3/uL (4.8-10.8)
[2023-12-07 06:26] LABS: Anion Gap 11 (12-20); Blood Urea Nitrogen 18 mg/dL (9-16); Carbon Dioxide 25 mmol/L (22-29); Chloride 104 mmol/L (96-108); Creatinine Clr Calc Pharmacy 45.3; Estimated Glomerular Filt Rate 57; Glucose Fasting 118 mg/dL (60-99); Potassium 4.6 mmol/L (3.3-5.1); Sodium 135 mmol/L (135-145)
[2023-12-07] MEDS: amLODIPine Besylate 5 MG TABLET PO (08:25)
[2023-12-07] MEDS: atenoloL 50 MG TABLET PO (08:25)
[2023-12-07] MEDS: Anastrozole 1 MG TABLET PO (08:25)
[2023-12-07] MEDS: OXcarbazepine 300 MG TABLET PO (08:26)
[2023-12-07] MEDS: Celecoxib 200 MG CAPSULE PO ×2 (08:26→21:26)
[2023-12-07] MEDS: Valsartan 160 MG TABLET PO (08:26)
--- NOTE | 2023-12-07 08:31 | PM.PNORT ---
Subjective Subjective Date of Service: 12/07/23 Interval history: POD1 s/p LTKA Patient is resting in bed comfortably No overnight events Reports pain - nursing called to bedside, pain medication to be administered No additional complaints Physical Exam Vital Signs: Vital Signs: Last Vital Signs Temp 97.7 F 12/07/23 07:31 Pulse 64 12/07/23 07:31 Resp 16 12/07/23 07:31 BP 139/64 12/07/23 07:31 Pulse Ox 93 12/07/23 07:31 O2 Del Method Room Air 12/07/23 07:31 O2 Flow Rate 6 12/06/23 09:28 BMI result Body Mass Index 29.1 Const: General: cooperative, healthy appearing and no acute distress Resp: Effort & Inspection: normal respiratory effort and able to speak in complete sentences Cardio: Rate: regular rate Peripheral pulses: Peripheral pulses 2+ throughout GI: Palpation (GI): Soft to palpation Skin: Lesions: no lesions Rashes: no rashes Extrem: Other: left knee dressing is c/d/i. Able to dorsi/plantar flex. Calf is supple and nontender. Sensation intact. Pedal pulse intact. Procedures Date of Service Date of Service: 12/07/23 Progress Note: A&P Assessment and plan (1) Status post total left knee replacement: Status: Acute Assessment and Plan: Continue pain mgmnt Begin ASA for dvt ppx begin PT/OT for LTKA Dispo planning-PT/OT, pain mgmnt - Reports pain - nursing called to bedside, pain medication to be administered Time Spent With Patient Time: Total time managing care of this patient today ____ minutes. Quality Stroke Does the patient have a stroke diagnosis?: No VTE Prior VTE?: No VTE Risk Level:: Medical - moderate - high VTE Device Contraindication: N/A - Device Ordered VTE Drug Contraindication: N/A - Med Ordered
--- NOTE | 2023-12-07 09:19 | PC.NURSE ---
PRN tylenol 650mg and PRN oxycodone 10mg given for 8/10 pain per pt request.
[2023-12-07] MEDS: Aspirin 325 MG TABLET PO ×2 (11:21→21:25)
[2023-12-07] MEDS: 0.9 % Sodium Chloride 1,000 ML 999 ML IV (12:50)
--- NOTE | 2023-12-07 12:55 | PC.NURSE ---
1L bolus NS ordered to run over an hour at approximately 0845. Morning BP 139/64 with HR of 64 bpm. Maintenance fluids running at 100mL/hour. Current H&H 8.9 and 25.8. Most recent BP 141/79 and HR 68 bpm at 1156. Addressed with SURESH Williamson and solar applications development engineer ortho SURESH Max. Per ortho team- patient is fluid depleted requiring bolus. Patient's vital signs remain stable. Patient voiding independently and tolerating PO well. No signs or symptoms of distress. Patient resting comfortably in chair, call russell within reach.
[2023-12-07] MEDS: Docusate Sodium 100 MG CAPSULE PO (16:08)
--- NOTE | 2023-12-07 18:28 | PC.NURSE ---
Pt requested PRN tylenol 650mg and PRN oxycodone 10 mg for 8/10 pain.
[2023-12-07] MEDS: Mirtazapine 15 MG TABLET PO (21:25)
[2023-12-07] MEDS: Atorvastatin Calcium 80 MG TABLET PO (21:25)
[2023-12-07] MEDS: OXcarbazepine 150 MG TABLET 450 MG PO (21:26)
[2023-12-07] MEDS: LORazepam 0.5 MG TABLET PO (21:26)
[2023-12-08] VITALS (12 sets, daily range): BP systolic 138–169; BP diastolic 63–76; PULSE 68–82; RESP 16–18; TEMP 36.1–37.1; O2SAT 93–95
[2023-12-08] MEDS: Lactated Ringers 1,000 ML 100 ML IVCONT ×3 (00:54→22:05)
[2023-12-08] MEDS: Acetaminophen 325 MG TABLET 650 MG PO ×3 (05:16→18:04)
[2023-12-08] MEDS: Levothyroxine Sodium 50 MCG TABLET PO (05:16)
[2023-12-08] MEDS: oxyCODONE HCl Immed Release 5 MG TABLET 10 MG PO ×3 (05:16→18:04)
[2023-12-08 05:58] LABS: MANUAL DIFF FLAG NO
[2023-12-08 06:05] LABS: Basophils Percent Auto 0.3 % (0-2); Eosinophils Absolute Auto 0.2 X10*3/uL (0.0-0.4); Eosinophils Percent Auto 1.8 % (0-4); Hematocrit 26.1 % (37.0-47.0); Hemoglobin 8.7 g/dl (12.0-16.0); Imm Gran Abs Auto 0.03 X10*3/uL (0.00-0.03); Imm Gran Pct Auto 0.3 % (0.0-0.4); Lymphocytes Percent Auto 22.8 % (20-40); Mean Corpuscular HGB Conc 33.3 g/dl (31.0-35.0); Mean Corpuscular Volume 92.9 fL (80.0-98.0); Mean Platelet Volume 9.7 fL (9.4-12.3); Monocytes Absolute Auto 0.7 X10*3/uL (0.1-1.2); Monocytes Percent Auto 7.7 % (2-11); Neutrophils Absolute Auto 5.9 x10*3/uL (2.0-8.3); Neutrophils Percent Auto 67.1 % (45-73); Platelet Count 215 X10*3/uL (160-400); Red Blood Count 2.81 X10*6/uL (4.20-5.50); Red Cell Distribution Width 13.2 % (11.0-16.0); White Blood Count 8.7 X10*3/uL (4.8-10.8)
[2023-12-08 06:21] LABS: Anion Gap 12 (12-20); Blood Urea Nitrogen 13 mg/dL (9-16); Calcium 8.5 mg/dL (8.4-10.2); Carbon Dioxide 24 mmol/L (22-29); Chloride 105 mmol/L (96-108); Creatinine Clr Calc Pharmacy 59.2; Estimated Glomerular Filt Rate > 60; Glucose Fasting 99 mg/dL (60-99); Potassium 4.5 mmol/L (3.3-5.1); Sodium 136 mmol/L (135-145)
--- NOTE | 2023-12-08 07:50 | PM.PNORT ---
Subjective Subjective Date of Service: 12/08/23 Interval history: POD2 s/p LTKA Patient is resting in bed comfortably No overnight events Reports pain H/H low however denies CP, Palpitations, lighteadedness/dizziness No additional complaints Physical Exam Vital Signs: Vital Signs: Last Vital Signs Temp 97 F 12/08/23 07:38 Pulse 74 12/08/23 07:38 Resp 18 12/08/23 07:38 BP 169/72 H 12/08/23 07:38 Pulse Ox 93 12/08/23 07:38 O2 Del Method Room Air 12/08/23 07:38 O2 Flow Rate 6 12/06/23 09:28 BMI result Body Mass Index 29.1 Const: General: cooperative, healthy appearing and no acute distress Resp: Effort & Inspection: normal respiratory effort and able to speak in complete sentences Cardio: Rate: regular rate Peripheral pulses: Peripheral pulses 2+ throughout GI: Palpation (GI): Soft to palpation Skin: Lesions: no lesions Rashes: no rashes Extrem: Other: left knee dressing is c/d/i. Able to dorsi/plantar flex. Calf is supple and nontender. Sensation intact. Pedal pulse intact. Procedures Date of Service Date of Service: 12/08/23 Progress Note: A&P Assessment and plan (1) Status post total left knee replacement: Status: Acute Assessment and Plan: Continue pain mgmnt Begin ASA for dvt ppx begin PT/OT for LTKA Pain continues to be a concern Monitor H&H -Fluid bolus ordered yesterday Dispo planning-PT/OT, pain mgmnt, continued monitoring of H&H Time Spent With Patient Time: Total time managing care of this patient today ____ minutes. Quality Stroke Does the patient have a stroke diagnosis?: No VTE Prior VTE?: No VTE Risk Level:: Medical - moderate - high VTE Device Contraindication: N/A - Device Ordered VTE Drug Contraindication: N/A - Med Ordered
--- NOTE | 2023-12-08 08:33 | MHC.CM.PN ---
Addendum entered by Sari Blair 12/08/23 10:36: CM MET WITH PT AND DAUGHTER, BLAINE, AT BEDSIDE THEY ARE AGREEABLE TO DC TO [facility] TOMORROW PT WILL BE TRANSPORTED VIA BLS SNF HAS REQUESTED PTS MED [facility] BE BROUGHT FROM HOME BLAINE WILL BRING THE MED AND PTS CLOTHES TO THE SNF TOMORROW Original Note: CM MET WITH PT TO DISCUSS DC PLAN SHE IS AWARE [facility] WAS UNABLE TO OFFER [facility]ANEH IS STILL FOLLOWING SHE WAS INFORMED [facility] WAS OFFERING A BED CM EXPLAINED THE DIFFERENCES BETWEEN AR AND STR PT IS AWARE SHE MAY BE CLEARED TO DC TOMORROW CM WILL MEET WITH HER AGAIN IN THE MORNING FOR FINAL CHOICE
[2023-12-08] MEDS: HYDROmorphone HCl 0.5 MG/0.5 ML SYRINGE 0.25 MG IVPUSH (09:23)
[2023-12-08] MEDS: atenoloL 50 MG TABLET PO (10:01)
[2023-12-08] MEDS: amLODIPine Besylate 5 MG TABLET PO (10:02)
[2023-12-08] MEDS: OXcarbazepine 300 MG TABLET PO (10:03)
[2023-12-08] MEDS: Celecoxib 200 MG CAPSULE PO ×2 (10:03→20:55)
[2023-12-08] MEDS: Aspirin 325 MG TABLET PO ×2 (10:03→20:53)
[2023-12-08] MEDS: Anastrozole 1 MG TABLET PO (10:03)
[2023-12-08] MEDS: Valsartan 160 MG TABLET PO (10:03)
--- NOTE | 2023-12-08 13:11 | PC.NURSE ---
prn 650 mg Tylenol and 10 mg oxycodone administered per pt request
--- NOTE | 2023-12-08 18:06 | PC.NURSE ---
prn oxycodone 10 mg and 650 tylenol given per pt requet
[2023-12-08] MEDS: OXcarbazepine 150 MG TABLET 450 MG PO (20:54)
[2023-12-08] MEDS: Docusate Sodium 100 MG CAPSULE PO (20:54)
[2023-12-08] MEDS: LORazepam 0.5 MG TABLET PO (20:54)
[2023-12-08] MEDS: Atorvastatin Calcium 80 MG TABLET PO (20:55)
[2023-12-08] MEDS: Mirtazapine 15 MG TABLET PO (20:55)
[2023-12-09] VITALS (8 sets, daily range): BP systolic 130–180; BP diastolic 60–92; PULSE 68–80; RESP 12–20; TEMP 36.4–36.9; O2SAT 93–95
[2023-12-09] MEDS: HYDROmorphone HCl 0.5 MG/0.5 ML SYRINGE 0.25 MG IVPUSH (04:53)
[2023-12-09] MEDS: Levothyroxine Sodium 50 MCG TABLET PO (04:53)
[2023-12-09] MEDS: atenoloL 50 MG TABLET PO (05:11)
--- NOTE | 2023-12-09 05:13 | PC.NURSE ---
Addendum entered by Rosa Heath RN 12/09/23 06:07: repeat BP 141/65, pain relief acceptable. Original Note: Bp 180/72, pain 8/10 to left knee. Patient medicated with dilaudid, atenolol given early. Will cont monitor.
[2023-12-09 06:05] LABS: MANUAL DIFF FLAG NO
[2023-12-09 06:15] LABS: Basophils Percent Auto 0.3 % (0-2); Eosinophils Absolute Auto 0.2 X10*3/uL (0.0-0.4); Eosinophils Percent Auto 1.8 % (0-4); Hematocrit 25.2 % (37.0-47.0); Hemoglobin 8.4 g/dl (12.0-16.0); Imm Gran Abs Auto 0.06 X10*3/uL (0.00-0.03); Imm Gran Pct Auto 0.7 % (0.0-0.4); Lymphocytes Absolute Auto 1.5 X10*3/uL (1.2-4.9); Lymphocytes Percent Auto 16.8 % (20-40); Mean Corpuscular HGB Conc 33.3 g/dl (31.0-35.0); Mean Corpuscular Hemoglobin 31.1 pg (27.0-33.0); Mean Corpuscular Volume 93.3 fL (80.0-98.0); Mean Platelet Volume 9.7 fL (9.4-12.3); Monocytes Absolute Auto 0.6 X10*3/uL (0.1-1.2); Monocytes Percent Auto 6.3 % (2-11); Neutrophils Absolute Auto 6.7 x10*3/uL (2.0-8.3); Neutrophils Percent Auto 74.1 % (45-73); Platelet Count 222 X10*3/uL (160-400); Red Cell Distribution Width 13.2 % (11.0-16.0); White Blood Count 9.1 X10*3/uL (4.8-10.8)
[2023-12-09 06:41] LABS: Anion Gap 10 (12-20); Blood Urea Nitrogen 14 mg/dL (9-16); Carbon Dioxide 27 mmol/L (22-29); Chloride 103 mmol/L (96-108); Estimated Glomerular Filt Rate > 60; Glucose Fasting 106 mg/dL (60-99); Potassium 4.3 mmol/L (3.3-5.1); Sodium 136 mmol/L (135-145)
[2023-12-09] MEDS: Valsartan 160 MG TABLET PO (08:53)
[2023-12-09] MEDS: OXcarbazepine 300 MG TABLET PO (08:53)
[2023-12-09] MEDS: Aspirin 325 MG TABLET PO (08:53)
[2023-12-09] MEDS: Celecoxib 200 MG CAPSULE PO (08:53)
[2023-12-09] MEDS: amLODIPine Besylate 5 MG TABLET PO (08:54)
[2023-12-09] MEDS: Anastrozole 1 MG TABLET PO (08:54)
[2023-12-09] MEDS: Lactated Ringers 1,000 ML 100 ML IVCONT (09:02)
--- NOTE | 2023-12-09 10:07 | PM.DS ---
DS: Providers Provider Date of Service: 12/09/23 Date of admission: 12/06/23 06:02 Primary care physician: Kelvin Pruett MD Consults: 12/06/23 09:58 Consult to Hospitalist Routine Comment: hx of hemorrhagic stroke, input on DVT ppx Consulting Provider: Hospitalist Reason For Exam: Routine medical management DS: Diagnosis Discharge Diagnosis (1) Status post total left knee replacement: Status: Acute DS: Summary Hospital Course Hospital Course: The patient underwent a successful left total knee arthroplasty, they were transferred to PACU and then to the floor to recover. During their stay, their vitals were stable, afebrile at 98. Labs were unremarkable, H/H 8.4/25.2. POD 1 they were started on Aspirin 325mg po bid for DVT ppx, they also received Physical Therapy services twice a day. Prior to discharge, their dressing was clean dry and intact, and the plan was to be discharged to short term rehab. Time Attestation Total time managing care of this patient today: 30 mintues. Discharge Coordination Time (in mins): 30 Quality: Safe Use of Opioids Does Pt have an Active Cancer Diagnosis on the Problem List?: No Quality: Stroke Does the patient have a stroke diagnosis?: No Physical Exam Vital Signs: Vital Signs: Last Vital Signs Temp 98 F 12/09/23 07:45 Pulse 72 12/09/23 07:45 Resp 12 12/09/23 07:45 BP 150/80 H 12/09/23 08:54 Pulse Ox 95 12/09/23 08:00 O2 Del Method Room Air 12/09/23 08:00 O2 Flow Rate 6 12/06/23 09:28 BMI result Body Mass Index 29.1 Const: General: cooperative, healthy appearing and no acute distress Resp: Effort & Inspection: normal respiratory effort and able to speak in complete sentences Cardio: Rate: regular rate Peripheral pulses: Peripheral pulses 2+ throughout GI: Palpation (GI): Soft to palpation Skin: Lesions: no lesions Rashes: no rashes Extrem: Other: left knee dressing is c/d/i. Able to dorsi/plantar flex. Calf is supple and nontender. Sensation intact. Pedal pulse intact. DS: Data Data Completed and Pending Pending studies at discharge: Pending at discharge 12/06/23 08:52 Surgical [PTH] Routine Labs on day of discharge: Laboratory Results - last 24 hr 12/09/23 05:26 WBC 9.1 RBC 2.70 L Hgb 8.4 L Hct 25.2 L MCV 93.3 MCH 31.1 MCHC 33.3 RDW 13.2 Plt Count 222 MPV 9.7 Immature Gran % (Auto) 0.7 H Neut % (Auto) 74.1 H Lymph % (Auto) 16.8 L [place] % (Auto) 6.3 Eos % (Auto) 1.8 Baso % (Auto) 0.3 Lymph # (Auto) 1.5 [place] # (Auto) 0.6 Eos # (Auto) 0.2 Baso # (Auto) 0.0 Abs Immat Gran (auto) 0.06 H Absolute Neuts (auto) 6.7 Absolute Nucleated RBC 0.000 Nucleated RBC % (auto) 0.0 Sodium 136 Potassium 4.3 Chloride 103 Carbon Dioxide 27 Anion Gap 10 L BUN 14 Creatinine 0.71 Estim Creat Clear Calc 60.0 Estimated GFR > 60 Fasting Glucose 106 H Calcium 9.0 Discharge Plan Discharge Anticipated Discharge Date/Time: 12/09/23 12:00 Patient Disposition: Xfer SNF Discharge Diagnosis: Status post L TKA Referrals: Henrry Barnett [Outside] Kelvin Pruett MD [Primary Care Provider] - 1 Week Discharge Medications: New acetaminophen 325 mg Tablet 650 mg PO Q6H PRN (Reason: Pain, Mild (Pain Scale 1-3), fever or headache) 30 Days Qty: 240 0RF aspirin 325 mg Tablet 325 mg PO BID 42 Days Qty: 84 0RF celecoxib 200 mg Capsule 200 mg PO BID 30 Days Qty: 60 0RF oxycodone 10 mg tablet 10 mg PO Q4H PRN (Reason: Pain, Moderate(Pain Scale 4-6)) 7 Days Qty: 42 0RF Rx Instructions: Partial Fill upon patient request. docusate sodium 100 mg Capsule 100 mg PO DAILY PRN (Reason: Constipation) 30 Days Qty: 30 0RF Continued amlodipine 5 mg tablet 5 mg PO DAILY Qty: 90 3RF atenolol 50 mg tablet 50 mg PO DAILY Qty: 90 3RF irbesartan 300 mg tablet 300 mg PO DAILY Qty: 90 3RF mirtazapine 15 mg tablet 15 mg PO BEDTIME 90 Days Qty: 90 0RF (DME) walker Misc See Rx Instructions .ROUTE .MEDSUPPLY Qty: 1 0RF Rx Instructions: Folding front wheeled walker oxcarbazepine 300 mg Tablet 450 mg PO BEDTIME oxcarbazepine 300 mg tablet 300 mg PO QAM lorazepam 0.5 mg tablet 0.5 mg PO BEDTIME PRN (Reason: anxiety) loratadine [Claritin] 10 mg Tablet 10 mg PO DAILY PRN (Reason: Allergy Symptoms) atorvastatin 80 mg tablet 80 mg PO BEDTIME senna 8.6 mg capsule 8.6 mg PO BEDTIME PRN (Reason: constipation) 90 Days Qty: 90 3RF levothyroxine 50 mcg tablet 50 mcg PO DAILY 90 Days Qty: 90 1RF Rx Instructions: Take on an empty stomach, first thing in the morning, with water. Do not eat or drink anything else for 30 minutes afterwards anastrozole 1 mg tablet 1 mg PO DAILY 90 Days Qty: 90 1RF trazodone 100 mg tablet 100 mg PO BEDTIME PRN (Reason: Insomnia) Held oxycodone-acetaminophen [Percocet] 5-325 mg Tablet 1 tab PO Q4-6H PRN (Reason: Pain) Hold Instructions: Resume on 01/06/24. Discharge Orders: Discharge Order (Routine); Ordered 12/09/23 Ordered By: Toño Max Activity on Discharge: Use cane or walker Stand Alone Forms: Patient Portal Discharge page Print Language: Turkish Care Plan Goals: Restore function to L knee Health Concerns: None Plan of Treatment: Physical Therapy for ROM 0-120, quad strength, gait training. Use walker for ambulation Limit stair climbing, No shower, No tub bath, No driving Continue anticoagulant ASA for 6 weeks Keep Aquacel dressing clean, dry and intact. Follow up with orthopedics in 2 weeks Assessment: Stable for discharge
[2023-12-09] MEDS: Milk of Magnesia 30 ML ORAL.SUSP PO (10:11)
--- NOTE | 2023-12-09 10:14 | MHC.CM.PN ---
Patient medically cleared for dc to [facility]. S transport to [facility] scheduled for 3:30pm. Patient, RN and facility aware. IMM delivered.
--- NOTE | 2023-12-09 12:23 | PM.PNORT ---
Subjective Subjective Date of Service: 12/09/23 Interval history: Patient is an 83-year-old female who was admitted to the hospital status post left total knee arthroplasty with Dr. No, DOS 12/06/2023. Today, the patient reports that she is feeling fairly well, and that she has been ambulating regularly with physical therapy. She reports that that she experiences pain when she attempts to ambulate or bend her left knee after being in bed for long periods of time. The patient also expresses concern that, both yesterday and today, her breakfast feels as if it has been ?catching in her throat?, but this issue did not present itself with lunch or dinner yesterday. Physical Exam Vital Signs: Vital Signs: Last Vital Signs Temp 98 F 12/09/23 07:45 Pulse 72 12/09/23 07:45 Resp 12 12/09/23 07:45 BP 150/80 H 12/09/23 08:54 Pulse Ox 95 12/09/23 08:00 O2 Del Method Room Air 12/09/23 08:00 O2 Flow Rate 6 12/06/23 09:28 BMI result Body Mass Index 29.1 Extrem: Other: Dressing is in place, clean dry and intact Able to plantar flex and dorsiflex Compartments soft Calf nontender NVI. Procedures Date of Service Date of Service: 12/09/23 Progress Note: A&P Assessment and plan (1) Status post total left knee replacement: Status: Acute Plan Plan is to discharge patient to SNF today for rehab Continue pain management Continue work with PT/OT while rehab facility H&H improved since yesterday Continue aspirin for DVT prophylaxis Patient will follow-up in office on 12/21/2023 for a 2 week postop appointment, sooner with any acute concerns Time Spent With Patient Time: Total time managing care of this patient today ____ minutes. Quality Stroke Does the patient have a stroke diagnosis?: No VTE Prior VTE?: No VTE Risk Level:: Medical - moderate - high VTE Device Contraindication: N/A - Device Ordered VTE Drug Contraindication: N/A - Med Ordered
[2023-12-09] MEDS: Sodium Phosphate,Mono-Dibasic 133 ML ENEMA PR (13:31)
[2023-12-09] MEDS: oxyCODONE HCl Immed Release 5 MG TABLET 10 MG PO (14:36)
--- NOTE | 2023-12-13 07:06 | W.PM.OPN ---
Operative Note Operative Note Date of Service: 12/06/23 Narrative: Date of Service: 12/06/23 Pre-op diagnosis: Left knee OA Post-op diagnosis: same Procedure: Left TKA Implants: Moro Triathlon cemented posterior stabilized 07/29/10 Surgeon: Emory No MD Anesthesia: regional and spinal Was an [place]ound [place] Production Supervisor used for this Procedure?: No [employer] [place] [place] Production Supervisor: Charline Williamson Estimated blood loss (mL): 20 Tourniquet time (min): 54 IV fluids (mL): 800 Pathology: other Condition: stable Disposition: PACU Procedure in detail: The patient was brought to the operating room and prepped and draped in standard sterile fashion. A time-out was called to identify proper site proper procedure proper surgeon and IV antibiotics were administered. 1 g of IV tranexamic acid was administered. I began by making a midline incision to the retinaculum and performed a medial parapatellar arthrotomy. The patella was translated laterally and the knee was flexed up. The medial compartment was eburnated. I performed a small medial peel and resected the infrapatellar fat pad. Tk's line was then used to drill my intramedullary femoral guide and my distal femur cut of 10 mm was made in 5 degrees of valgus while protecting the soft tissues. I then measured a # 3 femur and placed my cutting guide and made my anterior posterior and chamfer cuts protecting the soft tissues at all times. I then made my box but removing the PCL. Once I was satisfied with my cuts I turned my attention to the tibia. I removed the meniscus medially and laterally and , using an external cutting guide, in line with the tibial crest and the third ray, I made my distal tibial cut in 0 deg slope of while protecting the posterior soft tissues at all times. An extension block was used to confirm appropriate amount of bony resection. I then sized a #3 tibia and once I was satisfied that there was complete tibial coverage I placed my trial and with the trial femur in place took the knee through range of motion. I was satisfied with the extension and flexion as well as the balance at 0, 30 and 90 degrees. I then turned my attention to the patella where I removed 1 cm from the undersurface of the patella and then trialed a 32a patellar button. Again the knee was taken through range of motion I was satisfied with the tracking. I then prepared the tibia with a drill and punch. A femoral bone plug was placed and the knee was irrigated copiously. I then cemented the patella, tibia and femur in standard fashion. Axial compression and a clamp were used while the cement dried. Once the cement was hard on the back table all excess cement was removed and I trialed different inserts until I selected a #11 insert. The final insert was placed and local TXA was administered. The knee was then closed with a running Quill suture, a 3 0 Vicryl and swati on the skin. Patient was then placed in sterile dressing and brought to recovery room in stable condition there were no known complications.
== END 2023-12-09 16:29 | disposition skilled nursing facility (03) | DRG 470 ==
LOC: HO.SSSA 06:20 → HO.S3 09:37
PROVIDERS: Physician Assistant; Admitting Provider Orthopaedic Surgery; PCP Internal Medicine; Visit Provider Orthopaedic Surgery
PROC: 0SRD0J9 Replacement of Left Knee Joint with Synthetic Substitute, Cemented, Open Approach (ICD-10-PCS; CPT 27447; principal; 2023-12-06 07:30)
DX: M17.12 Unilateral primary osteoarthritis, left knee (principal); G89.18 Other acute postprocedural pain; I10 Essential (primary) hypertension; E78.2 Mixed hyperlipidemia; C50.911 Malignant neoplasm of unspecified site of right female breast; E03.9 Hypothyroidism, unspecified; F39 Unspecified mood [affective] disorder; G40.909 Epilepsy, unspecified, not intractable, without status epilepticus; Z98.1 Arthrodesis status; Z79.811 Long term (current) use of aromatase inhibitors; Z79.890 Hormone replacement therapy; Z79.899 Other long term (current) drug therapy
CPT/HCPCS: 27447; 36415; 73560; 80048; 82565; 85014; 85018; 85025; 86850; 86900; 86901; 86902; 86920; 86922; 87640; 87641; 88305; 88311; 93005; 97110; 97116; 97162; 97166; 97530; C1713; C1776; J0131; J0665; J0690; J1100; J1170; J2250; J2405; J2704; J3010; J7120

== ENCOUNTER → 2023-12-06 06:02 | Outpatient (BNV) | payer MEDICARE, SELFPAY | PROVIDERS: Admitting Provider Orthopaedic Surgery; PCP Internal Medicine; Visit Provider Student in an Organized Health Care Education/Training Program | DX: I10 Essential (primary) hypertension (principal); Z96.652 Presence of left artificial knee joint; M17.12 Unilateral primary osteoarthritis, left knee | CPT/HCPCS: 99222 ==

== ENCOUNTER → 2023-12-06 06:02 | Outpatient (BNV) | payer MEDICARE, SELFPAY | PROVIDERS: Admitting Provider Orthopaedic Surgery; PCP Internal Medicine; Visit Provider Orthopaedic Surgery | DX: Z47.1 Aftercare following joint replacement surgery (principal); Z96.652 Presence of left artificial knee joint | CPT/HCPCS: 27447; 99024 ==

== ENCOUNTER 2023-12-21 09:31 | Outpatient (AMB) | payer MEDICARE, SELFPAY ==
--- NOTE | 2023-12-21 09:34 | A.OFFVIS_ITS ---
Intake Visit Reasons: 2WK PO: L TKA w/NE 12/06/23 Intake Note: Jennie an 83 year old female who presents today in a wheel chair for a post operative left TKA on 12/06/23 NE. Patient reports having soreness and pain, states her current pain level is 10 out of 10. Allergies phenytoin [Dilantin] Allergy (Severe, Verified 12/21/23 09:38) Hives sertraline [SERTRALINE] Allergy (Severe, Verified 12/21/23 09:38) DROPPED SODIUM LEVEL, BP increase Sodium drop aspirin [ASPIRIN] Allergy (Intermediate, Verified 12/21/23 09:38) RISK OF BLEDING NSAIDS (Non-Steroidal Anti-Inflamma Allergy (Unknown, Verified 12/21/23 09:38) risk of bleeding HPI HPI 2WK PO: L TKA w/NE 12/06/23: Details: Jennie is an 83-year-old female who presents today in a wheelchair for a post operative left TKA on 12/06/23 NE. She reports soreness and pain and states that her current pain level is on scale of 10 out of 10. She claims that walking and stair climbing makes the pain worse. She was last seen by her PCP before surgery. She reports that she usually ambulates with the walker and experiences pain while ambulating and notices difficulty bending her knee. [facility] Medical History Seasonal allergies Osteopenia Constipation Acquired hypothyroidism Overweight (BMI 25.0-29.9) Cataract Seizures Stroke (~2000) Ash ash disease (~2000) Urinary frequency Allergic rhinitis Degenerative disc disease, cervical Neck pain Depression Anxiety Insomnia Epilepsy Obesity (BMI 30-39.9) Osteoarthritis Benign essential hypertension Pure hypercholesterolemia Rib pain on right side Left shoulder pain Recurrent dry cough Pain of right scapula Right-sided thoracic back pain Surgical History H/O breast surgery Hx of colonoscopy History of kidney surgery Status post cervical disc replacement History of knee replacement procedure of right knee Hx of knee surgery Family History Father Chronic mental illness Mother Hypertension Other Mental health problem Social History Household Members: None Housing: House Are you a primary manager long term care to a significant other at home: No Do you presently have visiting nurse or other home services: No Alcohol intake: current Alcohol intake frequency: holidays/special occasions only Alcohol type: wine Patient Tobacco Use Status: Former Tobacco user Tobacco use type: Cigarette Years Smoked: 10 e-Cigarette/Vaping Use: Never Used Second Hand Smoke Exposure: No Advance Directives Date on File: 05/23/23 service: No Current occupational status: retired Cognitive needs: No Hearing needs: No Vision needs: No Review of Systems Const All systems reviewed & are unremarkable except as noted in HPI and below Physical Exam Const General: cooperative, healthy appearing, comfortable and no acute distress Orientation/consciousness: patient oriented x3 Neck Neck: Yes normal visual inspection and Yes no JVD Chest Chest palpation & inspection: normal inspection of the chest Resp Effort & Inspection: normal respiratory effort Auscultation: clear to auscultation bilaterally, crackles (no), rales (no), rhonchi (no) and wheezes (no) Cardio Jugular venous distension: no JVD Rate: regular rate Rhythm: regular rhythm Heart sounds: S1 normal heart sound present, S2 normal heart sound present, Murmur heart sound present (no) and Rub heart sound present (no) Neuro General: patient oriented x3 Extrem Other: Left knee: incision is clean, dry, and intact. No erythema, no drainage. Range of motion is 0 to 90 degrees. Calf supple and nontender. General: Yes normal to inspection, Yes no pedal edema and Yes no calf tenderness Psych Appearance: grossly normal Mental Status: mental status grossly normal Speech and movement: Normal speech and movement present Assessment & Plan Assessment & Plan (1) Status post total left knee replacement: Code(s): Z96.652 - Presence of left artificial knee joint Category: Surgical Plan Jes removed, steri strips applied. She will begin to transition to Outpatient PT to continue working on Gait training, ROM and quad strength. No driving for another 4 weeks. She will require ppx abx for dental procedures. She will f/u in [address] No or sooner if needed. Patient Instructions: Scribed for Allan Tineo PA-C, by tj Díaz scribe, on 12/21/2023 at 9:45 AM Allan COOK PA-C, have personally reviewed and agree with the information entered by the benny. Coding Level of Care Code Global (48328) Diagnoses Status post total left knee replacement Z96.652
== END 2023-12-21 10:25 | disposition home or self-care (01) ==
PROVIDERS: PCP Internal Medicine; Visit Provider Physician Assistant
DX: Z96.652 Presence of left artificial knee joint (principal)
CPT/HCPCS: 99024

== ENCOUNTER → 2023-12-21 09:31 | Outpatient (BNVA) | payer MEDICARE, SELFPAY | PROVIDERS: PCP Internal Medicine; Visit Provider Physician Assistant | DX: Z96.652 Presence of left artificial knee joint (principal) | CPT/HCPCS: 99212 ==

== ENCOUNTER 2023-12-25 09:29 | Outpatient (AMB) | payer MEDICARE, SELFPAY ==
--- NOTE | 2023-12-25 09:30 | MHC.PC.OV ---
Vital Signs 12/25/23 09:31 Height 5 ft 3 in Weight 172 lb BMI 30.5 BP 130/62 Blood Pressure Location Lt brachial Position Sitting Pulse 65 Pulse Source Pulse Oximeter Pulse Oximetry (%) 96 Oxygen Delivery Method Room Air Intake Visit Reasons: discharge follow up Intake Note: Patient is here for hospital discharge follow up. Patient was [place] [facility] [place], [facility] 12/09/23 to 12/22/23 . Alliance Manager Required: No Coin Machine Collector Supervisor: Present Accompanied by: Son Madyson Allergies phenytoin [Dilantin] Allergy (Severe, Verified 12/25/23 09:31) Hives sertraline [SERTRALINE] Allergy (Severe, Verified 12/25/23 09:31) DROPPED SODIUM LEVEL, BP increase Sodium drop aspirin [ASPIRIN] Allergy (Intermediate, Verified 12/25/23 09:31) RISK OF BLEDING NSAIDS (Non-Steroidal Anti-Inflamma Allergy (Unknown, Verified 12/25/23 09:31) risk of bleeding Tobacco use date assessed: 12/25/23 Fall risk assessment: No Falls in past year Last assessed Fall Risk: 12/25/23 Dental Screening Dental Screen Date: 08/03/23 HPI discharge follow up HPI Details Patient comes in today for her HDF follow up visit She recently has total right [place] [facility] [place] No on 12/06/2023 States that she still has increased pain in her right knee and that her right knee and leg are still swollen but notes that her pain has subsided slightly recently She will likely be starting home PT/OT soon once [facility] starts seeing her - states that they are scheduled to come over to her house later today for initial intake She denies any fever, headaches or dizziness Denies any chest pains, no SOB No nausea/vomiting, no abdominal pain No change in bowel habits noted States that she had some labs done last weekend and is wondering how her results came out Patient also brought in today a copy of her MOLST form as well as her updated immunization list - states that she really does not understand what the pink form (MOLST) is about [facility], [facility] Medical History Seasonal allergies Osteopenia Constipation Acquired hypothyroidism Overweight (BMI 25.0-29.9) Cataract Seizures Stroke (~2000) Ash ash disease (~2000) Urinary frequency Allergic rhinitis Degenerative disc disease, cervical Neck pain Depression Anxiety Insomnia Epilepsy Obesity (BMI 30-39.9) Osteoarthritis Benign essential hypertension Pure hypercholesterolemia Rib pain on right side Left shoulder pain Recurrent dry cough Pain of right scapula Right-sided thoracic back pain Surgical History History of left knee replacement H/O breast surgery Hx of colonoscopy History of kidney surgery Status post cervical disc replacement History of knee replacement procedure of right knee Hx of knee surgery Family History Father Chronic mental illness Mother Hypertension Other Mental health problem Social History Household Members: None Housing: House Are you a primary hospice care transitions coordinator to a significant other at home: No Do you presently have visiting nurse or other home services: No Alcohol intake: current Alcohol intake frequency: holidays/special occasions only Alcohol type: wine Patient Tobacco Use Status: Former Tobacco user Tobacco use type: Cigarette Years Smoked: 10 e-Cigarette/Vaping Use: Never Used Second Hand Smoke Exposure: No Advance Directives Date on File: 05/23/23 service: No Current occupational status: retired Cognitive needs: Yes (Walker) Hearing needs: No Vision needs: No Questionnaire Thrive Questionnaire Date Thrive assessed: 12/06/23 FEI-7 AMB Questionnaire FEI-7 Date FEI - 7 assessed: 08/03/23 Source: Developed by Drs. Michoacano Hanson, Dayanna Car, Javier Spain and colleagues, with an educational zach from [employer]. Review of Systems Const Denies chills, Reports fatigue, Denies fever(s) and Denies headache(s) ENT Denies dysphagia, Denies dizziness, Denies otalgia, Denies headache(s), Denies nasal discharge, Reports neck pain (chronic), Denies odynophagia and Denies sore throat Card Denies chest pain, Denies palpitations and Denies dyspnea Resp Denies chest congestion, Denies cough, Denies dyspnea and Denies wheezing GI Denies abdominal pain, Denies constipation, Denies dysphagia, Denies heartburn, Denies diarrhea, Denies nausea, Denies odynophagia and Denies vomiting Denies difficulty voiding, Denies nocturia, Denies dysuria and Denies urinary urgency Musc Reports as per HPI, Reports back pain, Reports arthralgias (left knee ), Reports joint swelling (left knee, with swelling of her left leg and foot as well) and Reports neck pain (chronic) Skin/Breast Denies rash Neuro Denies dizziness and Denies headache(s) Psych Denies anxiety Endo Reports fatigue and Denies palpitations Aller/Immun Denies wheezing Physical exam (Primary Care) Vital Signs: Last Vital Signs Pulse 65 12/25/23 09:31 BP 130/62 12/25/23 09:31 Pulse Ox 96 12/25/23 09:31 Oxygen Delivery Method Room Air 12/25/23 09:31 BMI result Body Mass Index 30.5 Tobacco/Smoking Status: Tobacco use Status Tobacco use date assessed 12/25/23 12/25/23 09:43 Patient Tobacco Use Status Former Tobacco user 12/25/23 09:43 Tobacco use type Cigarette 12/25/23 09:43 e-Cigarette/Vaping Use Never Used 12/25/23 09:43 Thrive Assessment: Date of Thrive Assessment Date Thrive assessed 12/06/23 12/25/23 09:43 Advance Care Planning discussion: Completed/Scanned Date of discussion: 12/25/23 Who was present: Patient, son-in-law (Osman), PCP Forms completed: [facility] Time spent: 1-15 minutes, on File Const General: no acute distress and alert HENMT Face and sinus: No sinuses nontender Throat: Yes posterior oropharynx normal, Yes tonsils normal (no TP congestion ) and No postnasal drainage Neck Neck: Yes no lymphadenopathy and Yes tender Thyroid: Thyroid normal Resp Auscultation: clear to auscultation bilaterally, no rales and no wheezes Cardio Rate: regular rate Rhythm: regular rhythm Heart sounds: no murmurs GI Palpation (GI): Soft to palpation and nontender Auscultation: normal bowel sounds General: Yes no CVA tenderness Back/Spine/Pelvis Back: no CVA tenderness Cervical Spine: Cervical spine tenderness Thoracic/Lumbar Spine: lumbar spinal tenderness Skin Rashes: no rashes Extrem General: No clubbing, No cyanosis and Yes edema (3+ edema of the left lower leg and foot) Left lower extremity: knee ((+) healed vertical incision over the left knee) Details: tenderness and swelling Location: of the pre-patellar area and of the infrapatellar area Assessment and Plan Assessment & Plan (1) Osteoarthritis of left knee: Code(s): M17.12 - Unilateral primary osteoarthritis, left knee Qualifiers: Osteoarthritis type: primary Qualified Code(s): M17.12 - Unilateral primary osteoarthritis, left knee Plan: She appears to have had successful total left knee arthroplasty under general anesthesia with Dr. No on 12/06/2023 Right knee arthroplasty was done back in 2015 and her right knee is currently still doing well since her surgery Patient states that [facility] will be coming over to her house later today for an initial intake, after which they will then start home PT and OT Follow up with orthopedics as scheduled (2) Pure hypercholesterolemia: Code(s): E78.00 - Pure hypercholesterolemia, unspecified Plan: Reinforced low-cholesterol diet Continue Atorvastatin 80 mg QD Have reminded patient to recheck her labs and fasting lipids as scheduled in a few weeks for follow-up (3) Benign essential hypertension: Code(s): I10 - Essential (primary) hypertension Plan: Reinforced low-sodium diet - goal is systolic BP of at least 140 to 150 mm or less Continue Atenolol 50 mg QD, Amlodipine 5 mg QD and Irbesartan 300 mg QD (4) PAC (premature atrial contraction): Code(s): I49.1 - Atrial premature depolarization Plan: Her EKG done back in April 2023 revealed sinus rhythm with Premature atrial complexes and minimal voltage criteria for LVH, which may be normal variant ( R in aVL ) Repeat 12-lead EKG done on 12/06/2023 showed (+) NSR with sinus arrhythmia, with no PACs noted currently (5) Degenerative disc disease, cervical: Comment: S/P anterior fusion of C5-C7 in 2011 Code(s): M50.30 - Other cervical disc degeneration, unspecified cervical region Plan: Patient states that her neck pain has been manageable lately Cervical spine x-rays done in September 2020 revealed stable post-surgical changes and some mild degenerative changes in the cervical spine Will consider referring her again to physical therapy if her neck pain flares up (6) Breast cancer, left: Comment: 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; stage I ([id number]), grade 1, ER positive, TX positive, HER2 negative - diagnosed in January 2023 Code(s): C50.912 - Malignant neoplasm of unspecified site of left female breast Qualifiers: Breast location: unspecified site of breast Estrogen receptor status: positive Patient sex: female Qualified Code(s): C50.912 - Malignant neoplasm of unspecified site of left female breast; Z17.0 - Estrogen receptor positive status [ER+] Plan: She was diagnosed in January 2023 with invasive lobular carcinoma of the left breast after her routine mammogram revealed (+) calcifications and Bx done came back positive for breast cancer She has since undergone lumpectomy with negative margins She was referred to hematology/oncology and radiation oncology at [facility] (per request) and was started on Letrozole 1 mg QD, which she was advised to continue on for at least 5 years She was seen by radiation oncology at [facility] late last year for consultation as to whether she will require radiation therapy or not Her appointment was delayed when she developed RSV over the holidays and by the time she got to see Radiation Oncology, was advised that she was no longer in the window for radiation treatment to benefit her She will need to continue with annual mammography for continuing surveillance and to follow up with oncology as scheduled (7) Anemia: Code(s): D64.9 - Anemia, unspecified Qualifiers: Anemia type: unspecified type Qualified Code(s): D64.9 - Anemia, unspecified Plan: Mild; stable She has been consistently mildly anemic for the past couple of years but her RBC indices are normal H/H was at 11.3/34.1 on her preop labs although she was reportedly advised at discharge that she needed to have her H/H rechecked, presumably because her H/H dropped during her recent surgery - will have her get this rechecked when [facility] comes over to her house to do some lab draw sometime in the next couple of days Will continue to monitor her CBC regularly and consider referral to hematology for further evaluation if this progresses (8) Acquired hypothyroidism: Code(s): E03.9 - Hypothyroidism, unspecified Plan: Continue Levothyroxine 50 mcg QD Will recheck her TFTs in a few weeks for follow up (9) Hyponatremia: Code(s): E87.1 - Hypo-osmolality and hyponatremia Plan: Patient presumably developed hyponatremia post-op States that she had some labs done last weekend at [facility] - we do not have the results of these labs and will try to request for these to be sent over for review ANALISA Will also have her get her BMP rechecked to follow up on her serum sodium level (10) Osteopenia: Code(s): M85.80 - Other specified disorders of bone density and structure, unspecified site Qualifiers: Osteopenia location: unspecified Qualified Code(s): M85.80 - Other specified disorders of bone density and structure, unspecified site Plan: Her recent BMD done at [facility] on 07/14/2023 revealed (+) osteopenia with a T-score of -1.8 at the lumbar spine, -0.8 the left hip and -0.9 at the left femoral neck She is advised to continue taking her vitamin D and calcium supplements daily Fall precautions reinforced (11) Epilepsy: Code(s): G40.909 - Epilepsy, unspecified, not intractable, without status epilepticus Qualifiers: Epilepsy type: unspecified Intractability: not intractable Status epilepticus: without status epilepticus Qualified Code(s): G40.909 - Epilepsy, unspecified, not intractable, without status epilepticus Plan: Stable with no recent recurrence Continue Trileptal 300 mg 1 tablet Q AM and 2 tablets Q PM 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 and was taking Aspirin daily for a while but she stopped taking this many years ago Follow up with neurology as scheduled (12) Constipation: Code(s): K59.00 - Constipation, unspecified Qualifiers: Constipation type: unspecified constipation type Qualified Code(s): K59.00 - Constipation, unspecified Plan: Encouraged again on increased oral fluids and dietary fiber Continue Senna 8.6 mg Q HS PRN Have advised patient that her opioid Rx may also be contributing to her constipation (13) Overactive bladder: Code(s): N32.81 - Overactive bladder Plan: Continue Myrbetriq ER 25 mg QD Follow up with urology as scheduled (14) Insomnia: Code(s): G47.00 - Insomnia, unspecified Qualifiers: Insomnia type: unspecified Qualified Code(s): G47.00 - Insomnia, unspecified Plan: Sleep hygiene reinforced Continue Trazodone 100 mg 1.5 tablets (150 mg) Q HS PRN; she also takes Mirtazapine at bedtime and this may also be helping with her sleep (15) Anxiety: Code(s): F41.9 - Anxiety disorder, unspecified Plan: Continue Lorazepam 0.5 mg 1 to 2 tablets once a day at bedtime as needed (16) Depression: Code(s): F32.9 - Major depressive disorder, single episode, unspecified Qualifiers: Depression Type: unspecified Qualified Code(s): F32.9 - Major depressive disorder, single episode, unspecified Plan: Continue Mirtazapine 15 mg Q HS (17) Overweight (BMI 25.0-29.9): Code(s): E66.3 - Overweight Plan: Reinforced diet/exercise as tolerated/lose weight, although due to her age, comorbidites and physical condition/issues, her activity and exercise tolerance is very limited Plan Follow up as scheduled in January 2024 Have reminded patient to make sure she gets her previously ordered follow up labs done before she comes in for her regular appointment in January 2024 Orders: Orders Complete Blood Count Auto Diff Today D64.9 - Anemia, unspecified Basic Metabolic Panel Today E87.1 - Hypo-osmolality and hyponatremia Medications: Refilled levothyroxine Take on an empty stomach, first thing in the morning, with water. Do not eat or drink anything else for 30 minutes afterwards 50 mcg PO DAILY 90 days 90 tabs 1RF E03.9 - Hypothyroidism, unspecified Coding Level of Care Code Est Pt Level 3 (64726) Diagnoses Primary osteoarthritis of left knee M17.12 Osteoarthritis type: primary Pure hypercholesterolemia E78.00 Benign essential hypertension I10 PAC (premature atrial contraction) I49.1 Degenerative disc disease, cervical M50.30 Malignant neoplasm of left breast in female, estrogen receptor positive, unspecified site of breast C50.912; Z17.0 Breast location: unspecified site of breast Estrogen receptor status: positive Patient sex: female Anemia, unspecified type D64.9 Anemia type: unspecified type Acquired hypothyroidism E03.9 Hyponatremia E87.1 Osteopenia, unspecified location M85.80 Osteopenia location: unspecified Nonintractable epilepsy without status epilepticus, unspecified epilepsy type G40.909 Epilepsy type: unspecified Intractability: not intractable Status epilepticus: without status epilepticus Constipation, unspecified constipation type K59.00 Constipation type: unspecified constipation type Overactive bladder N32.81 Insomnia, unspecified type G47.00 Insomnia type: unspecified Anxiety F41.9 Depression, unspecified depression type F32.9 Depression Type: unspecified Overweight (BMI 25.0-29.9) E66.3 Additional Codes Vital Signs *Quality* - Advance Care Planning discussion: Completed/Scanned ([id number]) Vital Signs *Quality* - Time spent: 1-15 minutes, on File ([id number])
[2023-12-25 09:31] VITALS: BP 130/62; PULSE 65; O2SAT 96; BMI 30.5
== END 2023-12-25 10:48 | disposition home or self-care (01) ==
PROVIDERS: PCP Internal Medicine; Visit Provider Internal Medicine
DX: E78.00 Pure hypercholesterolemia, unspecified (principal); M17.12 Unilateral primary osteoarthritis, left knee; I10 Essential (primary) hypertension; I49.1 Atrial premature depolarization; M50.30 Other cervical disc degeneration, unspecified cervical region; C50.912 Malignant neoplasm of unspecified site of left female breast; Z17.0 Estrogen receptor positive status [ER+]; D64.9 Anemia, unspecified; E03.9 Hypothyroidism, unspecified; E87.1 Hypo-osmolality and hyponatremia; M85.80 Other specified disorders of bone density and structure, unspecified site; G40.909 Epilepsy, unspecified, not intractable, without status epilepticus; K59.00 Constipation, unspecified; N32.81 Overactive bladder; G47.00 Insomnia, unspecified; F41.9 Anxiety disorder, unspecified; F32.9 Major depressive disorder, single episode, unspecified; E66.3 Overweight
CPT/HCPCS: 1123F; 99213

== ENCOUNTER 2023-12-26 14:59 | Outpatient (REF) | payer MEDICARE, SELFPAY ==
[2023-12-26 16:11] LABS: MANUAL DIFF FLAG NO
[2023-12-26 16:33] LABS: Basophils Percent Auto 0.4 % (0-2); Eosinophils Absolute Auto 0.1 X10*3/uL (0.0-0.4); Eosinophils Percent Auto 1.4 % (0-4); Hematocrit 25.7 % (37.0-47.0); Hemoglobin 8.5 g/dl (12.0-16.0); Imm Gran Abs Auto 0.05 X10*3/uL (0.00-0.03); Imm Gran Pct Auto 0.6 % (0.0-0.4); Lymphocytes Absolute Auto 1.3 X10*3/uL (1.2-4.9); Lymphocytes Percent Auto 15.6 % (20-40); Mean Corpuscular HGB Conc 33.1 g/dl (31.0-35.0); Mean Corpuscular Hemoglobin 30.8 pg (27.0-33.0); Mean Corpuscular Volume 93.1 fL (80.0-98.0); Mean Platelet Volume 9.7 fL (9.4-12.3); Monocytes Absolute Auto 0.7 X10*3/uL (0.1-1.2); Monocytes Percent Auto 8.1 % (2-11); Neutrophils Percent Auto 73.9 % (45-73); Platelet Count 426 X10*3/uL (160-400); Red Blood Count 2.76 X10*6/uL (4.20-5.50); Red Cell Distribution Width 14.9 % (11.0-16.0); White Blood Count 8.1 X10*3/uL (4.8-10.8)
[2023-12-26 16:58] LABS: Anion Gap 14 (12-20); Blood Urea Nitrogen 10 mg/dL (9-16); Calcium 9.5 mg/dL (8.4-10.2); Carbon Dioxide 24 mmol/L (22-29); Chloride 96 mmol/L (96-108); Estimated Glomerular Filt Rate > 60; Glucose Random 136 mg/dL (60-115); Potassium 4.9 mmol/L (3.3-5.1); Sodium 129 mmol/L (135-145)
== END 2023-12-26 15:00 | disposition home or self-care (01) ==
LOC: HO.HMGCLDS 14:59
PROVIDERS: PCP Internal Medicine; Visit Provider Internal Medicine
DX: E87.1 Hypo-osmolality and hyponatremia (principal); D64.9 Anemia, unspecified
CPT/HCPCS: 36415; 80048; 85025

== ENCOUNTER → 2024-01-01 23:59 | Outpatient (BNV) | payer MEDICARE, SELFPAY | PROVIDERS: PCP Internal Medicine; Visit Provider Internal Medicine | DX: I10 Essential (primary) hypertension (principal); I67.5 Moyamoya disease; F33.9 Major depressive disorder, recurrent, unspecified | CPT/HCPCS: G0180 ==

== ENCOUNTER → 2024-01-05 23:59 | Outpatient (BNV) | payer MEDICARE, SELFPAY | PROVIDERS: PCP Internal Medicine; Visit Provider Internal Medicine | DX: I10 Essential (primary) hypertension (principal); K59.00 Constipation, unspecified; E87.1 Hypo-osmolality and hyponatremia | CPT/HCPCS: G0180 ==

== ENCOUNTER 2024-01-09 07:32 | Outpatient (REF) | payer MEDICARE, SELFPAY ==
[2024-01-09 10:50] LABS: Anion Gap 14 (12-20); Blood Urea Nitrogen 11 mg/dL (9-16); Calcium 9.5 mg/dL (8.4-10.2); Carbon Dioxide 22 mmol/L (22-29); Chloride 92 mmol/L (96-108); Estimated Glomerular Filt Rate > 60; Glucose Random 109 mg/dL (60-115); Potassium 4.5 mmol/L (3.3-5.1); Sodium 123 mmol/L (135-145)
== END 2024-01-09 07:33 | disposition home or self-care (01) ==
LOC: HO.HMGCLDS 07:32
PROVIDERS: PCP Internal Medicine; Visit Provider Internal Medicine
DX: Z13.89 Encounter for screening for other disorder (principal)
CPT/HCPCS: 36415; 80048

== ENCOUNTER 2024-01-09 19:34 | Inpatient (IN) | payer MEDICARE, SELFPAY ==
--- NOTE | 2024-01-09 | ECG_ITS ---
Test Reason : WEAKNESS Blood Pressure : / mmHG Vent. Rate : 077 BPM Atrial Rate : 077 BPM P-R Int : 188 ms QRS Dur : 084 ms QT Int : 394 ms P-R-T Axes : 027 -09 035 degrees QTc Int : 445 ms Sinus rhythm with Premature atrial complexes with Aberrant conduction (vs PVC) Otherwise normal ECG When compared with ECG of 17-NOV-2023 11:34, Aberrant conduction is now Present Referred By: Generic ED Physician Electronically Signed By:KILO DORSEY
[2024-01-09 19:44] VITALS: BP 156/56; BP 160/60; PULSE 70; PULSE 72; RESP 17; TEMP 37.1; O2SAT 95; BMI 30.6
[2024-01-09 19:58] LABS: MANUAL DIFF FLAG NO
[2024-01-09 20:05] LABS: Basophils Percent Auto 0.6 % (0-2); Eosinophils Absolute Auto 0.1 X10*3/uL (0.0-0.4); Eosinophils Percent Auto 1.1 % (0-4); Hematocrit 27.3 % (37.0-47.0); Hemoglobin 9.6 g/dl (12.0-16.0); Imm Gran Abs Auto 0.04 X10*3/uL (0.00-0.03); Imm Gran Pct Auto 0.6 % (0.0-0.4); Lymphocytes Absolute Auto 1.3 X10*3/uL (1.2-4.9); Lymphocytes Percent Auto 18.2 % (20-40); Mean Corpuscular HGB Conc 35.2 g/dl (31.0-35.0); Mean Corpuscular Hemoglobin 30.9 pg (27.0-33.0); Mean Corpuscular Volume 87.8 fL (80.0-98.0); Monocytes Absolute Auto 0.7 X10*3/uL (0.1-1.2); Monocytes Percent Auto 10.2 % (2-11); Neutrophils Absolute Auto 4.9 x10*3/uL (2.0-8.3); Neutrophils Percent Auto 69.3 % (45-73); Platelet Count 374 X10*3/uL (160-400); Red Blood Count 3.11 X10*6/uL (4.20-5.50); Red Cell Distribution Width 13.9 % (11.0-16.0); White Blood Count 7.1 X10*3/uL (4.8-10.8)
--- NOTE | 2024-01-09 20:12 | PC.NURSE ---
pt biba from home reporting onset of increasing weakness x1 week, pt reports getting call from PCP who stated pt had very low sodium levels and pt should follow up in the er. pt reports hx of stroke without deficits, pt stroke work up negative, all extremity functions in tact, pt a&ox4. ems placed 18G in left ac.
[2024-01-09 20:14] LABS: Alanine Aminotransferase 14 U/L (0-31); Alkaline Phosphatase 126 U/L (39-117); Anion Gap 14 (12-20); Aspartate Amino Transferase 16 U/L (5-31); Bilirubin Total 0.4 mg/dL (0.0-1.0); Blood Urea Nitrogen 12 mg/dL (9-16); Calcium 9.4 mg/dL (8.4-10.2); Carbon Dioxide 22 mmol/L (22-29); Chloride 94 mmol/L (96-108); Creatinine Clr Calc Pharmacy 58.3; Estimated Glomerular Filt Rate > 60; Glucose Random 117 mg/dL (60-115); Potassium 4.4 mmol/L (3.3-5.1); Sodium 126 mmol/L (135-145); Total Protein 7.1 g/dL (6.5-8.0)
--- NOTE | 2024-01-09 20:16 | ED.WEAKNESS ---
HPI - Weakness General Chief complaint: Weakness Stated complaint: Low sodium level per pcp, weakness Time Seen by Provider: 01/09/24 19:51 Source: patient and EMS Mode of arrival: EMS Limitations: no limitations History of Present Illness ED Provider: Dr. Fe Davis HPI Narrative: Patient comes to the emergency room via ambulance. Patient states that today she received a phone call from her PCP and asked her to come to the emergency room because her sodium is low. Patient states that she got blood work from her PCP earlier today because for 1 week she has been feeling very tired, weak, no chest pain or shortness of breath, no fever chills, no urinary symptoms. Patient states that for the last 3 days the weakness and fatigue got worse. Patient states that in the past she has had hyponatremia secondary to sertraline which was discontinued Related Data Home Medications ?Medication ?Instructions ?Recorded ?Confirmed trazodone 100 mg tablet 100 mg PO BEDTIME PRN Insomnia 10/02/23 12/01/23 loratadine 10 mg tablet (Claritin) 10 mg PO DAILY PRN Allergy Symptoms 11/23/23 12/01/23 oxcarbazepine 300 mg tablet 300 mg PO QAM 11/23/23 12/01/23 oxcarbazepine 300 mg tablet 450 mg PO BEDTIME 11/23/23 12/01/23 oxycodone-acetaminophen 5 mg-325 1 tab PO Q4-6H PRN Pain 11/23/23 12/01/23 mg tablet (Percocet) atorvastatin 80 mg tablet 80 mg PO BEDTIME 12/06/23 12/06/23 ferrous sulfate 325 mg (65 mg 325 mg PO DAILY 12/21/23 iron) tablet Previous Rx's ?Medication ?Instructions ?Recorded amlodipine 5 mg tablet 5 mg PO DAILY #90 tabs 02/28/23 irbesartan 300 mg tablet 300 mg PO DAILY #90 tabs 03/22/23 sennosides 8.6 mg capsule (senna) 8.6 mg PO BEDTIME PRN constipation 04/26/23 90 days #90 caps anastrozole 1 mg tablet 1 mg PO DAILY 90 days #90 tabs 08/03/23 walker #1 ea 10/31/23 acetaminophen 325 mg tablet 650 mg (2 x 325 mg) PO Q6H PRN 12/09/23 Pain, Mild (Pain Scale 1-3), fever or headache 30 days #240 tabs aspirin 325 mg tablet 325 mg PO BID 42 days #84 tabs 12/09/23 celecoxib 200 mg capsule 200 mg PO BID 30 days #60 caps 12/09/23 docusate sodium 100 mg capsule 100 mg PO DAILY PRN Constipation 12/09/23 30 days #30 caps oxycodone 10 mg tablet 10 mg PO Q4H PRN Pain, 12/09/23 Moderate(Pain Scale 4-6) 7 days #42 tabs atenolol 50 mg tablet 50 mg PO DAILY #90 tabs 12/11/23 levothyroxine 50 mcg tablet 50 mcg PO DAILY 90 days #90 tabs 12/25/23 lorazepam 0.5 mg tablet 0.5 mg PO BID PRN anxiety 30 days 01/02/24 #60 tabs mirtazapine 15 mg tablet 15 mg PO BEDTIME 90 days #90 tabs 01/02/24 oxycodone-acetaminophen 5 mg-325 1 tab PO Q6-8H PRN pain #30 tabs 01/05/24 mg tablet Allergies Allergy/AdvReac Type Severity Reaction Status Date / Time phenytoin [Dilantin] Allergy Severe Hives Verified 01/09/24 19:47 sertraline [SERTRALINE] Allergy Severe DROPPED Verified 01/09/24 19:47 SODIUM LEVEL, BP increase Sodium drop aspirin [ASPIRIN] Allergy Intermediate RISK OF Verified 01/09/24 19:47 BLEDING NSAIDS (Non-Steroidal Allergy Unknown risk of Verified 01/09/24 19:47 Anti-Inflamma bleeding Review of Systems Review of Systems: Constitutional : No Weight loss, No Fever, No Chills, No Night Sweats, complaining of fatigue and weakness ENT/Mouth : No Hearing loss, No Ear Pain, No Nasal Congestion, No Sinus Pain, No Hoarseness, No sore throat, No Rhinorrhea, No Swallowing Difficulty Eyes: No Eye Pain, No Swelling, No Redness, No Foreign Body, No Discharge, No Vision Changes Cardiovascular : No Chest Pain, No SOB, No Dyspnea on Exertion, No Orthopnea, No Edema, No Palpitations Respiratory : No Cough, No Sputum, No Wheezing, No Smoke Exposure, No Dyspnea Gastrointestinal : No Nausea, No Vomiting, No Diarrhea, No Constipation, No abdominal Pain, No Hematochezia, No Melena Genitourinary : no irregular bleeding, No Dysuria, No Urinary Frequency, No Hematuria, No Urinary Incontinence, No Urgency, No Flank Pain, No Urinary Flow Changes, No Hesitancy Musculoskeletal : No joint pain, No Myalgias, No Joint Swelling Skin : No Skin Lesions, No rash Neuro : No Weakness, No Numbness, No Paresthesias, No Loss of Consciousness, No Dizziness, No Headache Psych : No Anxiety/Panic, No Depression, No SI/HI/AH/VH, No Social Issues, Heme/Lymph: No Bruising, No Bleeding,No Lymphadenopathy Endocrine : No Polyuria, No Polydipsia, No Temperature Intolerance [facility] Past Medical History Medical History Seasonal allergies Osteopenia Constipation Acquired hypothyroidism Overweight (BMI 25.0-29.9) Cataract Seizures Stroke (~2000) Ash ash disease (~2000) Urinary frequency Allergic rhinitis Degenerative disc disease, cervical Neck pain Depression Anxiety Insomnia Epilepsy Obesity (BMI 30-39.9) Osteoarthritis Benign essential hypertension Pure hypercholesterolemia Rib pain on right side Left shoulder pain Recurrent dry cough Pain of right scapula Right-sided thoracic back pain Surgical History History of left knee replacement H/O breast surgery Hx of colonoscopy History of kidney surgery Status post cervical disc replacement History of knee replacement procedure of right knee Hx of knee surgery Family History Family History Father Chronic mental illness Mother Hypertension Other Mental health problem Social History Social History Household Members: None Housing: House Are you a primary dog day care attendant to a significant other at home: No Do you presently have visiting nurse or other home services: No Alcohol intake: current Alcohol intake frequency: holidays/special occasions only Alcohol type: wine Patient Tobacco Use Status: Former Tobacco user Tobacco use type: Cigarette Years Smoked: 10 e-Cigarette/Vaping Use: Never Used Second Hand Smoke Exposure: No Advance Directives: Yes Advance Directives Information Provided: No Advance Directives on File: No Advance Directives Date on File: 05/23/23 Do you have a plan to hurt others: No Plan service: No Current occupational status: retired Cognitive needs: Yes (Walker) Hearing needs: No Vision needs: No Physical Exam Vital Signs: Vital Signs: Last Vital Signs Temp 98.8 F 01/09/24 19:44 Pulse 72 01/09/24 19:44 Resp 17 01/09/24 19:44 BP 156/56 H 01/09/24 19:44 Pulse Ox 95 01/09/24 19:44 O2 Del Method Room Air 01/09/24 19:44 BMI result Body Mass Index 30.6 Const: Other: Appearance: Alert. Oriented X3. No acute distress. Eyes: Pupils equal, round and reactive to light. ENT: Pharynx normal. Neck: Normal inspection. Neck supple. No lymph nodes noted. No crepitus CVS: Normal heart rate and rhythm. Pulses normal. Normal S1 and S2 Respiratory: No respiratory distress. Breath sounds normal. No Wheezing. No rales Abdomen: Soft and nontender. No rigidity. No distention. Skin: Skin warm and dry. Normal skin color. Normal skin turgor. Extremities: No lower extremity edema. No Lacerations. No Rash Neuro: Oriented X 3. No motor deficit. No sensory deficit. Moving all extremities. No slurred speech. CN 2 through 12 grossly intact Psych: calm, cooperative, normal affect Medical Decision Making Medical Decision Making [facility] Narrative: My interpretation of labs: Hematology is at baseline, hemoglobin is 9.6 which is chronic for the patient. Sodium earlier this morning was 123, at this time in the evening 126. Urine analysis/osmolality/sodium pending -patient receiving 0.5 L of normal saline -patient is currently on several medications that may cause hyponatremia including Trileptal, lorazepam, mirtazapine and Celebrex -I discussed the patient with Dr. Ellsworth, patient being admitted Differential Diagnosis Differential Diagnoses: The differential diagnosis associated with the presentation includes (Hyponatremia, UTI, decompensation) Admission/Observation Consideration of admission/observation: Escalation of care including admission/observation considered Consult Healthcare Provider Management of the patient was discussed with: Hospitalist Lab Data [facility] Lab Attestation statement: I reviewed the patient's lab results. 01/09/24 19:54 01/09/24 19:54 Labs: Lab Results 01/09/24 Range/Units 19:54 WBC 7.1 (4.8-10.8) X10*3/uL RBC 3.11 L (4.20-5.50) X10*6/uL Hgb 9.6 L (12.0-16.0) g/dl Hct 27.3 L (37.0-47.0) % MCV 87.8 (80.0-98.0) fL MCH 30.9 (27.0-33.0) pg MCHC 35.2 H (31.0-35.0) g/dl RDW 13.9 (11.0-16.0) % Plt Count 374 (160-400) X10*3/uL MPV 9.0 L (9.4-12.3) fL Immature Gran % (Auto) 0.6 H (0.0-0.4) % Neut % (Auto) 69.3 (45-73) % Lymph % (Auto) 18.2 L (20-40) % [place] % (Auto) 10.2 (2-11) % Eos % (Auto) 1.1 (0-4) % Baso % (Auto) 0.6 (0-2) % Lymph # (Auto) 1.3 (1.2-4.9) X10*3/uL [place] # (Auto) 0.7 (0.1-1.2) X10*3/uL Eos # (Auto) 0.1 (0.0-0.4) X10*3/uL Baso # (Auto) 0.0 (0.0-0.2) X10*3/uL Abs Immat Gran (auto) 0.04 H (0.00-0.03) X10*3/uL Absolute Neuts (auto) 4.9 (2.0-8.3) x10*3/uL Absolute Nucleated RBC 0.000 (0.0-0.012) X10*3/uL Nucleated RBC % (auto) 0.0 (0.0-0.2) /100WBC Sodium 126 L (135-145) mmol/L Potassium 4.4 (3.3-5.1) mmol/L Chloride 94 L (96-108) mmol/L Carbon Dioxide 22 (22-29) mmol/L Anion Gap 14 (12-20) BUN 12 (9-16) mg/dL Creatinine 0.75 (0.5-1.4) mg/dL Estim Creat Clear Calc 58.3 Estimated GFR > 60 Random Glucose 117 H (60-115) mg/dL Calcium 9.4 (8.4-10.2) mg/dL Total Bilirubin 0.4 (0.0-1.0) mg/dL AST 16 (5-31) U/L ALT 14 (0-31) U/L Alkaline Phosphatase 126 H (39-117) U/L Total Protein 7.1 (6.5-8.0) g/dL Albumin 4.0 (3.5-5.0) g/dL Independent Interpretation I performed an independent interpretation of an: EKG (Sinus rhythm, heart rate 77, no ST segment depression or elevation, nonspecific T-wave inversion in lead 3, QTC 445, occasional PVCs) Critical Care Time Critical Care Time Critical Care Time: Yes Total Critical Care Time: 60 Attestation: I have personally provided critical care time. Time includes review of lab data, radiology results, discussion with consultants, and monitoring for potential decompensation. Intervention performed as documented. Discharge Plan Discharge Clinical Impression: Acute hyponatremia Prescriptions: No Action amlodipine 5 mg tablet 5 mg PO DAILY Qty: 90 3RF irbesartan 300 mg tablet 300 mg PO DAILY Qty: 90 3RF (DME[facility] See Rx Instructions .ROUTE .MEDSUPPLY Qty: 1 0RF Rx Instructions: Folding front wheeled walker atenolol 50 mg tablet 50 mg PO DAILY Qty: 90 3RF lorazepam 0.5 mg tablet 0.5 mg PO BID PRN (Reason: anxiety) 30 Days Qty: 60 0RF mirtazapine 15 mg tablet 15 mg PO BEDTIME 90 Days Qty: 90 0RF oxycodone-acetaminophen 5-325 mg tablet 1 tab PO Q6-8H PRN (Reason: pain) Qty: 30 0RF Rx Instructions: Partial Fill upon patient request. oxcarbazepine 300 mg Tablet 450 mg PO BEDTIME oxcarbazepine 300 mg tablet 300 mg PO QAM oxycodone-acetaminophen [Percocet] 5-325 mg Tablet 1 tab PO Q4-6H PRN (Reason: Pain) Hold Instructions: Resume on 01/06/24. loratadine [Claritin] 10 mg Tablet 10 mg PO DAILY PRN (Reason: Allergy Symptoms) atorvastatin 80 mg tablet 80 mg PO BEDTIME acetaminophen 325 mg Tablet 650 mg PO Q6H PRN (Reason: Pain, Mild (Pain Scale 1-3), fever or headache) 30 Days Qty: 240 0RF aspirin 325 mg Tablet 325 mg PO BID 42 Days Qty: 84 0RF celecoxib 200 mg Capsule 200 mg PO BID 30 Days Qty: 60 0RF oxycodone 10 mg tablet 10 mg PO Q4H PRN (Reason: Pain, Moderate(Pain Scale 4-6)) 7 Days Qty: 42 0RF Rx Instructions: Partial Fill upon patient request. docusate sodium 100 mg Capsule 100 mg PO DAILY PRN (Reason: Constipation) 30 Days Qty: 30 0RF senna 8.6 mg capsule 8.6 mg PO BEDTIME PRN (Reason: constipation) 90 Days Qty: 90 3RF anastrozole 1 mg tablet 1 mg PO DAILY 90 Days Qty: 90 1RF levothyroxine 50 mcg tablet 50 mcg PO DAILY 90 Days Qty: 90 1RF Rx Instructions: Take on an empty stomach, first thing in the morning, with water. Do not eat or drink anything else for 30 minutes afterwards ferrous sulfate 325 mg (65 mg iron) tablet 325 mg PO DAILY trazodone 100 mg tablet 100 mg PO BEDTIME PRN (Reason: Insomnia) Print Language: Guyanese
--- NOTE | 2024-01-09 20:18 | PM.IMHP ---
History of Present Illness Date of Service: 01/09/24 Chief Complaint: Abnormal labs This is a 83-year-old female with pertinent history of seizure disorder, hypertension, history of hemorrhagic CVA in 2000, hypothyroidism, history of breast cancer status post lumpectomy in 2022, moyamoya disease who was sent to the emergency department for evaluation of low-sodium. Patient states she made an appointment with her PCP as she was feeling unwell. Patient reports generalized weakness and easy fatigability that has been ongoing for the last 5-6 days. Outpatient blood work was done and patient's sodium was found to be 123 and she was asked to come to the ER. Patient was found to have low-sodium in the past attributed to sertraline which was discontinued. Admits poor p.o. intake due to weakness for the last few days. No nausea, vomiting or loose stools. No fever, chills, chest discomfort, palpitations, shortness of breath, abdominal pain, changes in urinary or bowel habits. No change in prescription medications in the last 1 week. In the emergency department, sodium was found to be 126. Review of Systems Constitutional: Constitutional: Reports fatigue, Reports lethargy, Reports malaise, Reports poor appetite and Reports weakness Cardiovascular: Cardiovascular: Reports no additional cardiovascular complaints Respiratory: Respiratory: Reports no additional respiratory complaints Gastrointestinal: Gastrointestinal: Reports no additional gastrointestinal complaints Genitourinary: Genitourinary: Reports no additional female genitourinary complaints Neurologic: Reports weakness Endocrine: Endocrine: Reports fatigue [facility] Medical History Seasonal allergies Osteopenia Constipation Acquired hypothyroidism Overweight (BMI 25.0-29.9) Cataract Seizures Stroke (~2000) Ash ash disease (~2000) Urinary frequency Allergic rhinitis Degenerative disc disease, cervical Neck pain Depression Anxiety Insomnia Epilepsy Obesity (BMI 30-39.9) Osteoarthritis Benign essential hypertension Pure hypercholesterolemia Rib pain on right side Left shoulder pain Recurrent dry cough Pain of right scapula Right-sided thoracic back pain Family History Father Chronic mental illness Mother Hypertension Other Mental health problem Surgical History History of left knee replacement H/O breast surgery Hx of colonoscopy History of kidney surgery Status post cervical disc replacement History of knee replacement procedure of right knee Hx of knee surgery Social History Household Members: None Housing: House Are you a primary medical care evaluation specialist to a significant other at home: No Do you presently have visiting nurse or other home services: No Alcohol intake: current Alcohol intake frequency: holidays/special occasions only Alcohol type: wine Patient Tobacco Use Status: Former Tobacco user Tobacco use type: Cigarette Years Smoked: 10 Smoked in Last 30 Days: No e-Cigarette/Vaping Use: Never Used Second Hand Smoke Exposure: No Use of substances other than those prescribed or required for medical reasons: No Advance Directives: Yes Advance Directives Information Provided: No Advance Directives on File: No Advance Directives Date on File: 05/23/23 Do you have a plan to hurt others: No Plan Nutrition Risks: No Nutritional Risk service: No Current occupational status: retired Cognitive needs: Yes (Walker) Hearing needs: No Vision needs: No Meds Allergies Allergy/AdvReac Type Severity Reaction Status Date / Time phenytoin [Dilantin] Allergy Severe Hives Verified 01/09/24 19:47 sertraline [SERTRALINE] Allergy Severe DROPPED Verified 01/09/24 19:47 SODIUM LEVEL, BP increase Sodium drop aspirin [ASPIRIN] Allergy Intermediate RISK OF Verified 01/09/24 19:47 BLEDING NSAIDS (Non-Steroidal Allergy Unknown risk of Verified 01/09/24 19:47 Anti-Inflamma bleeding Active Medications: Current Medications Sodium Chloride (Ns) 500 mls @ 999 mls/hr IVCONT .Q31M ONE Stop: 01/09/24 20:45 Home Medications ?Medication ?Instructions ?Recorded ?Confirmed ?Last Taken ?Type oxcarbazepine 300 mg tablet 300 mg PO DAILY 11/23/23 01/09/24 01/09/24 History oxcarbazepine 300 mg tablet 450 mg PO BEDTIME 11/23/23 01/09/24 01/09/24 History oxycodone-acetaminophen 5 mg-325 1 tab PO Q4-6H PRN Pain 11/23/23 01/09/24 01/09/24 History mg tablet (Percocet) atorvastatin 80 mg tablet 80 mg PO BEDTIME 12/06/23 01/09/2424 History aspirin 81 mg tablet,delayed 81 mg PO DAILY 01/09/24 01/09/24 01/09/24 History release levothyroxine 50 mcg tablet 50 mcg PO DAILY@0600 01/09/24 01/09/24 01/09/24 History Physical Exam Vital Signs and Narrative: Vital Signs: Last Vital Signs Temp 98.8 F 01/09/24 19:44 Pulse 72 01/09/24 19:44 Resp 17 01/09/24 19:44 BP 156/56 H 01/09/24 19:44 Pulse Ox 95 01/09/24 19:44 O2 Del Method Room Air 01/09/24 19:44 BMI result Body Mass Index 30.6 Elderly female lying in bed in no distress Neck supple, no JVD Regular rate and rhythm, S1-S2 heard Regular breath sounds bilaterally, no wheezing or crackles appreciated Abdomen soft nontender, no guarding, no rigidity Patient is awake, alert and oriented to self, place, time and person ; no focal motor deficit Psych: Normal mood No pedal edema Results Labs 01/09/24 19:54 01/09/24 19:54 Labs: Laboratory Results - last 24 hr 01/09/24 19:54 MCV 87.8 MCH 30.9 MCHC 35.2 H RDW 13.9 Plt Count 374 MPV 9.0 L Immature Gran % (Auto) 0.6 H Neut % (Auto) 69.3 Lymph % (Auto) 18.2 L [place] % (Auto) 10.2 Eos % (Auto) 1.1 Baso % (Auto) 0.6 Lymph # (Auto) 1.3 [place] # (Auto) 0.7 Eos # (Auto) 0.1 Baso # (Auto) 0.0 Abs Immat Gran (auto) 0.04 H Absolute Neuts (auto) 4.9 Absolute Nucleated RBC 0.000 Nucleated RBC % (auto) 0.0 Anion Gap 14 Estim Creat Clear Calc 58.3 Estimated GFR > 60 Random Glucose 117 H Calcium 9.4 Total Bilirubin 0.4 AST 16 ALT 14 Alkaline Phosphatase 126 H Total Protein 7.1 Albumin 4.0 Assessment and Plan (1) Hyponatremia: Status: Acute Plan This is a 83-year-old female with pertinent history of seizure disorder, hypertension, history of hemorrhagic CVA in 2000, hypothyroidism, history of breast cancer status post lumpectomy in 2022, moyamoya disease who was sent to the emergency department for evaluation of low-sodium. #. Hyponatremia hypotonic, moderate: Resuscitated with IV normal saline in the ER. Serum and urine studies pending. If SIADH, hold NSAID and Trileptal. Closely monitor #. Hypertension: Continue amlodipine, atenolol and irbesartan #. Hypothyroidism: On Synthroid #. Mood disorder: On lorazepam p.r.n., mirtazapine and trazodone #. Seizure disorder: On oxcarbamazepine #. History of breast cancer: On anastrozole Med rec pending DVT prophylaxis: Lovenox Full code. Discussed with patient and son at bedside Ivonne (grand daughter): [phone] Admit as inpatient and will require two night minimum hospital stay for close monitoring of serum sodium (as above), which is not possible in a lesser acute setting. Quality Stroke Does the patient have a stroke diagnosis?: No VTE Prior VTE?: No VTE Risk Level:: Medical - moderate - high VTE Device Contraindication: Treatment Not Indicated VTE Drug Contraindication: N/A - Med Ordered
[2024-01-09] MEDS: 0.9 % Sodium Chloride 500 ML 999 ML IVCONT (20:50)
[2024-01-09] MEDS: Enoxaparin Sodium 40 MG/0.4 ML SYRINGE SUBCUT (20:56)
[2024-01-09 21:31] LABS: Osmolality, Serum 266 mosm/kg (281-305)
--- NOTE | 2024-01-09 21:33 | PC.NURSE ---
pt ambulated to bathroom with steady gait with gin, unable to provider urine sample at this time.
--- NOTE | 2024-01-09 21:36 | PHA.MEDREC ---
Addendum entered by Tammy Looney RPh 01/09/24 21:49: Reviewed by [facility]. Original Note: Pharmacy Consult ? Medication Reconciliation Pharmacy has completed the medication reconciliation. Spoke to patient to confirm med list. Patient had a medication list with her. Patient states she is no longer taking Celecoxib 200 mg bid, ferrous sulfate 352 mg daily, Loratadine 10 mg daily, and Trazadone 100 mg at bedtime. Patient says she is on Amlodipine 5 mg daily, however last fill date was 05-21-23 for 90 days, and Atorvastatin 80 mg daily, however last fill date was 03-08-23 for 90 days. Oxycodone-Acetaminophen 5mg -325mg Q6H prn , last fill date 01-02-24 for 7 days. Patient also states she take Oxcarbazepine 300 mg daily and 450 mg at bedtime.
[2024-01-09 22:28] LABS: Osmolality Urine 295 mosm/kg (373-1093)
[2024-01-10] MEDS: 0.9 % Sodium Chloride Flush 3 ML SYRINGE IVFLUSH ×3 (00:27→18:01)
[2024-01-10] MEDS: LORazepam 0.5 MG TABLET PO (00:55)
--- NOTE | 2024-01-10 02:17 | PC.NURSE ---
pt placed in hospital bed for comfort at this time.
[2024-01-10 04:12] VITALS: BP 185/85; PULSE 78; RESP 17; TEMP 36.8; O2SAT 95
[2024-01-10] MEDS: oxyCODONE HCl Immed Release 5 MG TABLET PO ×2 (04:21→20:47)
--- NOTE | 2024-01-10 04:21 | PC.NURSE ---
pt reporting 10/10 left knee pain, pt medicated per jul.
[2024-01-10 06:04] LABS: MANUAL DIFF FLAG NO
[2024-01-10 06:09] LABS: Basophils Percent Auto 0.4 % (0-2); Eosinophils Absolute Auto 0.1 X10*3/uL (0.0-0.4); Eosinophils Percent Auto 1.1 % (0-4); Hematocrit 27.2 % (37.0-47.0); Hemoglobin 9.3 g/dl (12.0-16.0); Imm Gran Abs Auto 0.03 X10*3/uL (0.00-0.03); Imm Gran Pct Auto 0.4 % (0.0-0.4); Lymphocytes Absolute Auto 1.2 X10*3/uL (1.2-4.9); Lymphocytes Percent Auto 15.9 % (20-40); Mean Corpuscular HGB Conc 34.2 g/dl (31.0-35.0); Mean Corpuscular Hemoglobin 30.1 pg (27.0-33.0); Mean Platelet Volume 9.2 fL (9.4-12.3); Monocytes Absolute Auto 0.8 X10*3/uL (0.1-1.2); Monocytes Percent Auto 9.9 % (2-11); Neutrophils Absolute Auto 5.5 x10*3/uL (2.0-8.3); Neutrophils Percent Auto 72.3 % (45-73); Platelet Count 349 X10*3/uL (160-400); Red Blood Count 3.09 X10*6/uL (4.20-5.50); White Blood Count 7.6 X10*3/uL (4.8-10.8)
[2024-01-10 06:16] VITALS: BP 186/76; PULSE 75; RESP 13; TEMP 36.5; O2SAT 96
[2024-01-10 06:22] LABS: Anion Gap 15 (12-20); Blood Urea Nitrogen 8 mg/dL (9-16); Calcium 9.4 mg/dL (8.4-10.2); Carbon Dioxide 20 mmol/L (22-29); Chloride 95 mmol/L (96-108); Creatinine Clr Calc Pharmacy 61.5; Estimated Glomerular Filt Rate > 60; Glucose Random 104 mg/dL (60-115); Potassium 4.2 mmol/L (3.3-5.1); Sodium 126 mmol/L (135-145)
[2024-01-10 06:44] LABS: Thyroid Stimulating Hormone 0.77 uIU/mL (0.32-4.0)
[2024-01-10 08:55] VITALS: BP 158/68; PULSE 78; RESP 18; TEMP 36.1; O2SAT 93
[2024-01-10] MEDS: amLODIPine Besylate 5 MG TABLET PO (09:05)
[2024-01-10] MEDS: Valsartan 160 MG TABLET PO (09:05)
[2024-01-10] MEDS: atenoloL 50 MG TABLET PO (09:05)
[2024-01-10] MEDS: Aspirin Enteric Coated 81 MG TABLET.DR PO (09:05)
[2024-01-10] MEDS: OXcarbazepine 300 MG TABLET PO (09:05)
--- NOTE | 2024-01-10 10:21 | P.PNIM_ITS ---
Subjective Subjective Date of Service: 01/10/24 Interval History: feeling a bit better Physical Exam 2 Vital Signs: Vital Signs: Last Vital Signs Temp 97.0 F 01/10/24 08:55 Pulse 78 01/10/24 08:55 Resp 18 01/10/24 08:55 BP 158/68 H 01/10/24 08:55 Pulse Ox 93 01/10/24 08:55 O2 Del Method Room Air 01/10/24 08:55 BMI result Body Mass Index 30.6 Const: Other: Appearance: Alert. Oriented X3. No acute distress. Eyes: Pupils equal, round and reactive to light. ENT: Pharynx normal. Neck: Normal inspection. Neck supple. No lymph nodes noted. No crepitus CVS: Normal heart rate and rhythm. Pulses normal. Normal S1 and S2 Respiratory: No respiratory distress. Breath sounds normal. No Wheezing. No rales Abdomen: Soft and nontender. No rigidity. No distention. Skin: Skin warm and dry. Normal skin color. Normal skin turgor. Extremities: No lower extremity edema. No Lacerations. No Rash Neuro: Oriented X 3. No motor deficit. No sensory deficit. Moving all extremities. No slurred speech. CN 2 through 12 grossly intact Psych: calm, cooperative, normal affect Objective Data Active Medications Acetaminophen (Acetaminophen 325 Mg Tablet) 650 mg PO Q6H PRN PRN Reason: Pain, Mild (Pain Scale 1-3), fever or headache Amlodipine Besylate (Amlodipine Besylate 5 Mg Tablet) 5 mg PO DAILY [facility]; Protocol Last Admin: 01/10/24 09:05 Dose: 5 mg Documented By: KARLA Anastrozole (Anastrozole 1 Mg Tablet) 1 mg PO DAILY [facility] Aspirin (Aspirin Enteric Coated 81 Mg Tablet.) 81 mg PO DAILY [facility] Last Admin: 01/10/24 09:05 Dose: 81 mg Documented By: KARLA Atenolol (Atenolol 50 Mg Tablet) 50 mg PO DAILY [facility]; Protocol Last Admin: 01/10/24 09:05 Dose: 50 mg Documented By: KARLA Atorvastatin Calcium (Atorvastatin Calcium 80 Mg Tablet) 80 mg PO BEDTIME [facility] Calcium Carbonate (Calcium Carbonate 750 Mg Tab.Chew) 750 mg PO Q4H PRN PRN Reason: Heartburn Docusate Sodium (Docusate Sodium 100 Mg Capsule) 100 mg PO DAILY PRN PRN Reason: Constipation Enoxaparin Sodium (Enoxaparin Sodium 40 Mg/0.4 Ml Syringe) 40 mg SUBCUT Q24H [facility] Last Admin: 01/09/24 20:56 Dose: 40 mg Documented By: BRONWYN Levothyroxine Sodium (Levothyroxine Sodium 50 Mcg Tablet) 50 mcg PO DAILY@0600 [facility] Lorazepam (Lorazepam 0.5 Mg Tablet) 0.5 mg PO BID PRN PRN Reason: anxiety Magnesium Hydroxide (Milk Of Magnesia 30 Ml Oral.Susp) 30 ml PO DAILY PRN PRN Reason: Constipation Melatonin (Melatonin 3 Mg Tablet) 6 mg PO BEDTIME PRN PRN Reason: Insomnia Mirtazapine (Mirtazapine 15 Mg Tablet) 15 mg PO BEDTIME [facility] Ondansetron HCl (Ondansetron Hcl 4 Mg/2 Ml Vial) 4 mg IVPUSH Q8H PRN PRN Reason: Nausea and Vomiting Oxcarbazepine (Oxcarbazepine 150 Mg Tablet) 450 mg PO BEDTIME [facility] Oxcarbazepine (Oxcarbazepine 300 Mg Tablet) 300 mg PO DAILY [facility] Last Admin: 01/10/24 09:05 Dose: 300 mg Documented By: KARLA Oxycodone HCl (Oxycodone Hcl Immed Release 5 Mg Tablet) 5 mg PO Q4H PRN PRN Reason: Pain, Severe (Pain Scale 7-10) Last Admin: 01/10/24 04:21 Dose: 5 mg Documented By: BRONWYN Sodium Chloride (0.9 % Sodium Chloride Flush 3 Ml Syringe) 3 ml IVFLUSH QSHIFT [facility] Last Admin: 01/10/24 07:23 Dose: 3 ml Documented By: YESI Valsartan (Valsartan 160 Mg Tablet) 160 mg PO DAILY [facility] Last Admin: 01/10/24 09:05 Dose: 160 mg Documented By: KARLA Labs 01/10/24 05:29 01/10/24 05:29 Labs: Laboratory Results - last 24 hr 01/09/24 01/09/24 01/09/24 19:54 20:57 21:59 MCV 87.8 MCH 30.9 MCHC 35.2 H RDW 13.9 Plt Count 374 MPV 9.0 L Immature Gran % (Auto) 0.6 H Neut % (Auto) 69.3 Lymph % (Auto) 18.2 L [place] % (Auto) 10.2 Eos % (Auto) 1.1 Baso % (Auto) 0.6 Lymph # (Auto) 1.3 [place] # (Auto) 0.7 Eos # (Auto) 0.1 Baso # (Auto) 0.0 Abs Immat Gran (auto) 0.04 H Absolute Neuts (auto) 4.9 Absolute Nucleated RBC 0.000 Nucleated RBC % (auto) 0.0 Anion Gap 14 Estim Creat Clear Calc 58.3 Estimated GFR > 60 Random Glucose 117 H Osmolality 266 L Calcium 9.4 Total Bilirubin 0.4 AST 16 ALT 14 Alkaline Phosphatase 126 H Total Protein 7.1 Albumin 4.0 TSH Urine Osmolality 295 L Ur Random Sodium 96.0 01/10/24 05:29 MCV 88.0 MCH 30.1 MCHC 34.2 RDW 14.0 Plt Count 349 MPV 9.2 L Immature Gran % (Auto) 0.4 Neut % (Auto) 72.3 Lymph % (Auto) 15.9 L [place] % (Auto) 9.9 Eos % (Auto) 1.1 Baso % (Auto) 0.4 Lymph # (Auto) 1.2 [place] # (Auto) 0.8 Eos # (Auto) 0.1 Baso # (Auto) 0.0 Abs Immat Gran (auto) 0.03 Absolute Neuts (auto) 5.5 Absolute Nucleated RBC 0.000 Nucleated RBC % (auto) 0.0 Anion Gap 15 Estim Creat Clear Calc 61.5 Estimated GFR > 60 Random Glucose 104 Osmolality Calcium 9.4 Total Bilirubin AST ALT Alkaline Phosphatase Total Protein Albumin TSH 0.77 Urine Osmolality Ur Random Sodium Assessment and Plan (1) Acute hyponatremia: Status: Acute Plan 83F PMH epilepsy, htn, hemorrhagic cva in 2000, hypothyroid, breast ca s/p lumpectomy 2022, moyamoya disease presented with weakness, found to have low sodium hyponatremia likely med related siadh will continue trileptal for seizures, and monitor on fluid restritction, nephro eval htn aml;dopine, arb, atenolol hypothryoid synthroid mood disorder atvian, remerom, trazodonw epilepsy trileptal breast ca anastrazole dvt prophylaxis - lovenox full code reason for continued hospitalization:hyponatremia Quality Stroke Does the patient have a stroke diagnosis?: No VTE Prior VTE?: No VTE Risk Level:: Medical - moderate - high VTE Device Contraindication: Treatment Not Indicated VTE Drug Contraindication: N/A - Med Ordered
[2024-01-10] MEDS: Anastrozole 1 MG TABLET PO (10:25)
[2024-01-10] MEDS: Milk of Magnesia 30 ML ORAL.SUSP PO (12:15)
[2024-01-10] MEDS: Docusate Sodium 100 MG CAPSULE PO (12:15)
--- NOTE | 2024-01-10 13:25 | PM.CNNEP ---
History of Present Illness Reason for Consult Consult date: 01/10/24 Reason for consult: Hyponatremia Chief Complaint Chief complaint: Abnormal labs History of Present Illness Narrative: 83-year-old female with seizure disorder, hypertension, history of hemorrhagic CVA in 2000, hypothyroidism, history of breast cancer status post lumpectomy in 2022, moyamoya disease who was sent to the emergency department for evaluation of low-sodium. she was feeling unwell and had seen PCP. She has been having generalized weakness and easy fatigability that has been ongoing for the last 5-6 days. Outpatient blood work showed patient's sodium was found to be 123 and she was asked to come to the ER. Patient was found to have low-sodium in the past attributed to sertraline which was discontinued. Admits poor p.o. intake due to weakness for the last few days. No nausea, vomiting or loose stools. No fever, chills, chest discomfort, palpitations, shortness of breath, abdominal pain, changes in urinary or bowel habits. No change in prescription medications in the last 1 week. Nephrology has been consulted to assist in a clinical care during her current hospital stay Review of Systems Review of Systems Yes all other systems are reviewed and are negative PMFSH Past Medical History Medical History Seasonal allergies Osteopenia Constipation Acquired hypothyroidism Overweight (BMI 25.0-29.9) Cataract Seizures Stroke (~2000) Ash ash disease (~2000) Urinary frequency Allergic rhinitis Degenerative disc disease, cervical Neck pain Depression Anxiety Insomnia Epilepsy Obesity (BMI 30-39.9) Osteoarthritis Benign essential hypertension Pure hypercholesterolemia Rib pain on right side Left shoulder pain Recurrent dry cough Pain of right scapula Right-sided thoracic back pain Family History Family History Father Chronic mental illness Mother Hypertension Other Mental health problem Surgical History Surgical History History of left knee replacement H/O breast surgery Hx of colonoscopy History of kidney surgery Status post cervical disc replacement History of knee replacement procedure of right knee Hx of knee surgery Social History Social History Household Members: None Housing: House Are you a primary caretaker to a significant other at home: No Do you presently have visiting nurse or other home services: No Alcohol intake: current Alcohol intake frequency: holidays/special occasions only Alcohol type: wine Patient Tobacco Use Status: Former Tobacco user Tobacco use type: Cigarette Years Smoked: 10 e-Cigarette/Vaping Use: Never Used Second Hand Smoke Exposure: No Advance Directives Date on File: 05/23/23 service: No Current occupational status: retired Cognitive needs: Yes ([employer]) Hearing needs: No Vision needs: No Meds Allergies Allergy/AdvReac Type Severity Reaction Status Date / Time phenytoin [Dilantin] Allergy Severe Hives Verified 01/09/24 19:47 sertraline [SERTRALINE] Allergy Severe DROPPED Verified 01/09/24 19:47 SODIUM LEVEL, BP increase Sodium drop aspirin [ASPIRIN] Allergy Intermediate RISK OF Verified 01/09/24 19:47 BLEDING NSAIDS (Non-Steroidal Allergy Unknown risk of Verified 01/09/24 19:47 Anti-Inflamma bleeding Active Medications: Current Medications Acetaminophen (Acetaminophen 325 Mg Tablet) 650 mg PO Q6H PRN PRN Reason: Pain, Mild (Pain Scale 1-3), fever or headache Amlodipine Besylate (Amlodipine Besylate 5 Mg Tablet) 5 mg PO DAILY [facility]; Protocol Last Admin: 01/10/24 09:05 Dose: 5 mg Anastrozole (Anastrozole 1 Mg Tablet) 1 mg PO DAILY [facility] Last Admin: 01/10/24 10:25 Dose: 1 mg Aspirin (Aspirin Enteric Coated 81 Mg Tablet.) 81 mg PO DAILY [facility] Last Admin: 01/10/24 09:05 Dose: 81 mg Atenolol (Atenolol 50 Mg Tablet) 50 mg PO DAILY [facility]; Protocol Last Admin: 01/10/24 09:05 Dose: 50 mg Atorvastatin Calcium (Atorvastatin Calcium 80 Mg Tablet) 80 mg PO BEDTIME [facility] Calcium Carbonate (Calcium Carbonate 750 Mg Tab.Chew) 750 mg PO Q4H PRN PRN Reason: Heartburn Docusate Sodium (Docusate Sodium 100 Mg Capsule) 100 mg PO DAILY PRN PRN Reason: Constipation Enoxaparin Sodium (Enoxaparin Sodium 40 Mg/0.4 Ml Syringe) 40 mg SUBCUT Q24H [facility] Last Admin: 01/09/24 20:56 Dose: 40 mg Levothyroxine Sodium (Levothyroxine Sodium 50 Mcg Tablet) 50 mcg PO DAILY@0600 [facility] Lorazepam (Lorazepam 0.5 Mg Tablet) 0.5 mg PO BID PRN PRN Reason: anxiety Magnesium Hydroxide (Milk Of Magnesia 30 Ml Oral.Susp) 30 ml PO DAILY PRN PRN Reason: Constipation Melatonin (Melatonin 3 Mg Tablet) 6 mg PO BEDTIME PRN PRN Reason: Insomnia Mirtazapine (Mirtazapine 15 Mg Tablet) 15 mg PO BEDTIME [facility] Ondansetron HCl (Ondansetron Hcl 4 Mg/2 Ml Vial) 4 mg IVPUSH Q8H PRN PRN Reason: Nausea and Vomiting Oxcarbazepine (Oxcarbazepine 150 Mg Tablet) 450 mg PO BEDTIME [facility] Oxcarbazepine (Oxcarbazepine 300 Mg Tablet) 300 mg PO DAILY [facility] Last Admin: 01/10/24 09:05 Dose: 300 mg Oxycodone HCl (Oxycodone Hcl Immed Release 5 Mg Tablet) 5 mg PO Q4H PRN PRN Reason: Pain, Severe (Pain Scale 7-10) Last Admin: 01/10/24 04:21 Dose: 5 mg Sodium Chloride (0.9 % Sodium Chloride Flush 3 Ml Syringe) 3 ml IVFLUSH QSHIFT [facility] Last Admin: 01/10/24 07:23 Dose: 3 ml Valsartan (Valsartan 160 Mg Tablet) 160 mg PO DAILY [facility] Last Admin: 01/10/24 09:05 Dose: 160 mg Home Medications ?Medication ?Instructions ?Recorded ?Confirmed ?Last Taken ?Type oxcarbazepine 300 mg tablet 300 mg PO DAILY 11/23/23 01/09/24 01/09/24 History oxcarbazepine 300 mg tablet 450 mg PO BEDTIME 11/23/23 01/09/24 01/09/24 History oxycodone-acetaminophen 5 mg-325 1 tab PO Q4-6H PRN Pain 11/23/23 01/09/24 01/09/24 History mg tablet (Percocet) atorvastatin 80 mg tablet 80 mg PO BEDTIME 12/06/23 01/09/24 01/09/24 History aspirin 81 mg tablet,delayed 81 mg PO DAILY 01/09/24 01/09/24 01/09/24 History release levothyroxine 50 mcg tablet 50 mcg PO DAILY@0600 08/13/24 08/13/24 08/13/24 History Physical Exam Vital Signs: Last Vital Signs Temp 97.0 F 01/10/24 08:55 Pulse 78 01/10/24 08:55 Resp 18 01/10/24 08:55 BP 158/68 H 01/10/24 08:55 Pulse Ox 93 01/10/24 08:55 O2 Del Method Room Air 01/10/24 08:55 BMI result Body Mass Index 30.6 Const General: no acute distress Eyes EOM: EOMs intact bilaterally Neck Neck: Yes supple Resp Auscultation: diminished lung sounds Cardio Rate: regular rate GI Palpation (GI): Soft to palpation Neuro General: moves all extremities Results Lab Results 01/10/24 05:29 01/10/24 05:29 Lab results: Chemistry 01/09/24 01/10/24 19:54 05:29 Sodium 126 L 126 L Potassium 4.4 4.2 Carbon Dioxide 22 20 L BUN 12 8 L Creatinine 0.75 0.71 Calcium 9.4 9.4 Hematology 01/09/24 01/10/24 19:54 05:29 WBC 7.1 7.6 Hgb 9.6 L 9.3 L Plt Count 374 349 Urine Studies 01/09/24 21:59 Urine Osmolality 295 L Assessment and Plan (1) Hyponatremia: Status: Acute Plan Hyponatremia due to excess ADH Clinically euvolemic. Cortisol ordered for morning Renal functions normal; ordered 1 dose of oral urea No indication for any hypertonic saline May need fluid restriction; labs a.m. Procedures Date of Service Date of Service: 01/10/24
--- NOTE | 2024-01-10 15:00 | MHC.CM.PN ---
IMM DELIVERED PT LIVES ALONE AND IS ACTIVE WITH [facility] FOR P.T. RETURN REFERRAL SENT. PT USES [facility] FOR MOBILITY. +HCP, DAUGHTER HAS COPY AND PT WILL REQUEST SHE BRING IN WHEN VISITS. PCP DR. BROOKS DP: HOME WITH RESUMPTION OF SERVICES WITH [facility] FOR P.T. DAUGHTER WILL TRANSPORT HOME. CM WILL CONTINUE TO FOLLOW FOR ANY CHANGE TO DC PLAN/NEEDS.
[2024-01-10] MEDS: Urea 15 GM POWDER PO (15:10)
[2024-01-10 15:22] VITALS: BP 142/81; PULSE 75; RESP 18; TEMP 36.6; O2SAT 97
[2024-01-10 19:24] VITALS: BP 146/65; PULSE 78; RESP 16; TEMP 36.6; O2SAT 94
[2024-01-10] MEDS: Atorvastatin Calcium 80 MG TABLET PO (20:47)
[2024-01-10] MEDS: Mirtazapine 15 MG TABLET PO (20:47)
[2024-01-10] MEDS: OXcarbazepine 150 MG TABLET 450 MG PO (20:48)
[2024-01-10] MEDS: Enoxaparin Sodium 40 MG/0.4 ML SYRINGE SUBCUT (20:51)
[2024-01-10] MEDS: Acetaminophen 325 MG TABLET 650 MG PO (22:27)
[2024-01-11] VITALS (7 sets, daily range): BP systolic 152–178; BP diastolic 50–80; PULSE 65–75; RESP 16–18; TEMP 36.3–36.6; O2SAT 94–96
--- NOTE | 2024-01-11 05:25 | PC.NURSE ---
This RN got permission from pt to informed the granddaughter Peg about the pt's care of plan. Pt's grandmarceloughter Peg phone number is [phone]. Per granddaughter Peg stated she will like to talk to the pt's attending MD about her care . This RN will informed the oncoming AM RN about the situation. Plan of care ongoing.
[2024-01-11] MEDS: Levothyroxine Sodium 50 MCG TABLET PO (05:56)
[2024-01-11 06:41] LABS: Anion Gap 11 (12-20); Blood Urea Nitrogen 19 mg/dL (9-16); Calcium 9.5 mg/dL (8.4-10.2); Carbon Dioxide 25 mmol/L (22-29); Chloride 97 mmol/L (96-108); Creatinine Clr Calc Pharmacy 59.8; Estimated Glomerular Filt Rate > 60; Glucose Fasting 101 mg/dL (60-99); Potassium 4.3 mmol/L (3.3-5.1); Sodium 129 mmol/L (135-145)
[2024-01-11 06:44] LABS: Hematocrit 29.5 % (37.0-47.0); Hemoglobin 9.8 g/dl (12.0-16.0); Mean Corpuscular HGB Conc 33.2 g/dl (31.0-35.0); Mean Corpuscular Hemoglobin 29.6 pg (27.0-33.0); Mean Corpuscular Volume 89.1 fL (80.0-98.0); Mean Platelet Volume 9.3 fL (9.4-12.3); Platelet Count 387 X10*3/uL (160-400); Red Blood Count 3.31 X10*6/uL (4.20-5.50); White Blood Count 6.9 X10*3/uL (4.8-10.8)
[2024-01-11 06:59] LABS: Cortisol Random 18.4 ug/dL
[2024-01-11] MEDS: atenoloL 50 MG TABLET PO (07:41)
[2024-01-11] MEDS: Aspirin Enteric Coated 81 MG TABLET.DR PO (07:42)
[2024-01-11] MEDS: Valsartan 160 MG TABLET PO (07:42)
[2024-01-11] MEDS: amLODIPine Besylate 5 MG TABLET PO (07:42)
[2024-01-11] MEDS: 0.9 % Sodium Chloride Flush 3 ML SYRINGE IVFLUSH ×3 (07:43→23:44)
[2024-01-11] MEDS: Anastrozole 1 MG TABLET PO (07:43)
[2024-01-11] MEDS: OXcarbazepine 300 MG TABLET PO (07:43)
--- NOTE | 2024-01-11 11:10 | HO.PM.IMPN ---
Subjective Subjective Date of Service: 01/11/24 Interval History: feeling stronger Physical Exam Vital Signs: Vital Signs: Last Vital Signs Temp 97.7 F 01/11/24 07:35 Pulse 69 01/11/24 07:41 Resp 16 01/11/24 07:35 BP 152/50 H 01/11/24 10:04 Pulse Ox 95 01/11/24 07:35 O2 Del Method Room Air 01/11/24 07:35 BMI result Body Mass Index 30.6 Const: General: no acute distress Eyes: EOM: EOMs intact bilaterally Neck: Neck: Yes supple Resp: Auscultation: diminished lung sounds Cardio: Rate: regular rate GI: Palpation (GI): Soft to palpation Neuro: General: moves all extremities Objective Data Active Medications Acetaminophen (Acetaminophen 325 Mg Tablet) 650 mg PO Q6H PRN PRN Reason: Pain, Mild (Pain Scale 1-3), fever or headache Last Admin: 01/10/24 22:27 Dose: 650 mg Documented By: MADYSON Comments: per pt request asked for Tylenol for 610 pain Amlodipine Besylate (Amlodipine Besylate 10 Mg Tablet) 10 mg PO DAILY [facility]; Protocol Anastrozole (Anastrozole 1 Mg Tablet) 1 mg PO DAILY [facility] Last Admin: 01/11/24 07:43 Dose: 1 mg Documented By: ANDREW Aspirin (Aspirin Enteric Coated 81 Mg Tablet.) 81 mg PO DAILY [facility] Last Admin: 01/11/24 07:42 Dose: 81 mg Documented By: ANDREW Atenolol (Atenolol 50 Mg Tablet) 50 mg PO DAILY [facility]; Protocol Last Admin: 01/11/24 07:41 Dose: 50 mg Documented By: ANDREW Atorvastatin Calcium (Atorvastatin Calcium 80 Mg Tablet) 80 mg PO BEDTIME [facility] Last Admin: 01/10/24 20:47 Dose: 80 mg Documented By: MADYSON Calcium Carbonate (Calcium Carbonate 750 Mg Tab.Chew) 750 mg PO Q4H PRN PRN Reason: Heartburn Docusate Sodium (Docusate Sodium 100 Mg Capsule) 100 mg PO DAILY PRN PRN Reason: Constipation Last Admin: 01/10/24 12:15 Dose: 100 mg Documented By: SHAN Enoxaparin Sodium (Enoxaparin Sodium 40 Mg/0.4 Ml Syringe) 40 mg SUBCUT Q24H [facility] Last Admin: 01/10/24 20:51 Dose: 40 mg Documented By: MADYSON Levetiracetam (Levetiracetam 500 Mg Tablet) 500 mg PO BID [facility] Levothyroxine Sodium (Levothyroxine Sodium 50 Mcg Tablet) 50 mcg PO DAILY@0600 [facility] Last Admin: 01/11/24 05:56 Dose: 50 mcg Documented By: MADYSON Lorazepam (Lorazepam 0.5 Mg Tablet) 0.5 mg PO BID PRN PRN Reason: anxiety Magnesium Hydroxide (Milk Of Magnesia 30 Ml Oral.Susp) 30 ml PO DAILY PRN PRN Reason: Constipation Last Admin: 01/10/24 12:15 Dose: 30 ml Documented By: SHAN Melatonin (Melatonin 3 Mg Tablet) 6 mg PO BEDTIME PRN PRN Reason: Insomnia Mirtazapine (Mirtazapine 15 Mg Tablet) 15 mg PO BEDTIME [facility] Last Admin: 01/10/24 20:47 Dose: 15 mg Documented By: MADYSON Ondansetron HCl (Ondansetron Hcl 4 Mg/2 Ml Vial) 4 mg IVPUSH Q8H PRN PRN Reason: Nausea and Vomiting Oxycodone HCl (Oxycodone Hcl Immed Release 5 Mg Tablet) 5 mg PO Q4H PRN PRN Reason: Pain, Severe (Pain Scale 7-10) Last Admin: 01/10/24 20:47 Dose: 5 mg Documented By: MADYSON Sodium Chloride (0.9 % Sodium Chloride Flush 3 Ml Syringe) 3 ml IVFLUSH QSHIFT [facility] Last Admin: 01/11/24 07:43 Dose: 3 ml Documented By: ANDREW Valsartan (Valsartan 160 Mg Tablet) 160 mg PO DAILY [facility] Last Admin: 01/11/24 07:42 Dose: 160 mg Documented By: ANDREW Labs 01/11/24 05:52 01/11/24 05:52 Labs: Laboratory Results - last 24 hr 01/11/24 05:52 MCV 89.1 MCH 29.6 MCHC 33.2 RDW 14.0 Plt Count 387 MPV 9.3 L Absolute Nucleated RBC 0.000 Nucleated RBC % (auto) 0.0 Anion Gap 11 L Estim Creat Clear Calc 59.8 Estimated GFR > 60 Fasting Glucose 101 H Calcium 9.5 Random Cortisol 18.4 Assessment and Plan (1) Acute hyponatremia: Status: Acute Plan 83F PMH epilepsy, htn, hemorrhagic cva in 2000, hypothyroid, breast ca s/p lumpectomy 2022, moyamoya disease presented with weakness, found to have low sodium hyponatremia likely med related siadh improved to 129, s/p urea on fluid restriction continue to monitor nephro following d/w family, will change tripletal to keppra htn - uncontrolled amlodopine increased to 10mg, arb, atenolol hypothryoid synthroid mood disorder atvian, remerom, trazodonw history of hemmorrhagic cva trileptal will be changed to keppra breast ca anastrazole dvt prophylaxis - lovenox full code reason for continued hospitalization:hyponatremia Quality Stroke Does the patient have a stroke diagnosis?: No VTE Prior VTE?: No VTE Risk Level:: Medical - moderate - high VTE Device Contraindication: Treatment Not Indicated VTE Drug Contraindication: N/A - Med Ordered
--- NOTE | 2024-01-11 19:16 | P.PNNP_ITS ---
Subjective Subjective Date of Service: 01/11/24 Interval history: feeling stronger; Na better Physical Exam 2 Vital Signs: Vital Signs: Last Vital Signs Temp 97.8 F 01/11/24 15:21 Pulse 75 01/11/24 15:21 Resp 18 01/11/24 15:21 BP 156/80 H 01/11/24 15:21 Pulse Ox 94 01/11/24 15:21 O2 Del Method Room Air 01/11/24 15:21 BMI result Body Mass Index 30.6 Const: General: comfortable Orientation/consciousness: patient oriented x3 Eyes: EOM: EOMs intact bilaterally Neck: Neck: Yes supple Resp: Auscultation: diminished lung sounds Cardio: Rate: regular rate GI: Palpation (GI): Soft to palpation Neuro: General: patient oriented x3 and moves all extremities Objective Data Labs 01/11/24 05:52 01/11/24 05:52 Labs: Laboratory Results - last 24 hr 01/11/24 05:52 WBC 6.9 RBC 3.31 L Hgb 9.8 L Hct 29.5 L MCV 89.1 MCH 29.6 MCHC 33.2 RDW 14.0 Plt Count 387 MPV 9.3 L Absolute Nucleated RBC 0.000 Nucleated RBC % (auto) 0.0 Sodium 129 L Potassium 4.3 Chloride 97 Carbon Dioxide 25 Anion Gap 11 L BUN 19 H Creatinine 0.73 Estim Creat Clear Calc 59.8 Estimated GFR > 60 Fasting Glucose 101 H Calcium 9.5 Random Cortisol 18.4 Procedures Date of Service Date of Service: 01/11/24 Assessment & Plan Assessment and plan (1) Hyponatremia: Status: Acute Assessment and Plan: Hyponatremia due to excess ADH Clinically euvolemic. Cortisol ok Renal functions normal; 1 dose of oral urea given(01/09) No indication for any hypertonic saline May need fluid restriction; labs a.m Progress Note: Quality Stroke Does the patient have a stroke diagnosis?: No
[2024-01-11] MEDS: Mirtazapine 15 MG TABLET PO (21:09)
[2024-01-11] MEDS: levETIRAcetam 500 MG TABLET PO (21:09)
[2024-01-11] MEDS: Enoxaparin Sodium 40 MG/0.4 ML SYRINGE SUBCUT (21:09)
[2024-01-11] MEDS: Atorvastatin Calcium 80 MG TABLET PO (21:09)
[2024-01-11] MEDS: Melatonin 3 MG TABLET 6 MG PO (21:13)
[2024-01-11] MEDS: LORazepam 0.5 MG TABLET PO (21:13)
[2024-01-11] MEDS: oxyCODONE HCl Immed Release 5 MG TABLET PO (21:57)
[2024-01-11] MEDS: Acetaminophen 325 MG TABLET 650 MG PO (23:41)
[2024-01-12 03:34] VITALS: BP 158/62; PULSE 66; RESP 16; TEMP 36.2; O2SAT 96
[2024-01-12 06:22] LABS: Hematocrit 28.8 % (37.0-47.0); Hemoglobin 9.7 g/dl (12.0-16.0); Mean Corpuscular HGB Conc 33.7 g/dl (31.0-35.0); Mean Corpuscular Hemoglobin 29.5 pg (27.0-33.0); Mean Corpuscular Volume 87.5 fL (80.0-98.0); Platelet Count 404 X10*3/uL (160-400); Red Blood Count 3.29 X10*6/uL (4.20-5.50); Red Cell Distribution Width 13.9 % (11.0-16.0); White Blood Count 7.1 X10*3/uL (4.8-10.8)
[2024-01-12] MEDS: Levothyroxine Sodium 50 MCG TABLET PO (06:39)
[2024-01-12 06:43] LABS: Anion Gap 15 (12-20); Blood Urea Nitrogen 18 mg/dL (9-16); Calcium 9.5 mg/dL (8.4-10.2); Carbon Dioxide 23 mmol/L (22-29); Chloride 96 mmol/L (96-108); Creatinine Clr Calc Pharmacy 55.3; Estimated Glomerular Filt Rate > 60; Glucose Fasting 92 mg/dL (60-99); Potassium 3.9 mmol/L (3.3-5.1); Sodium 130 mmol/L (135-145)
[2024-01-12 08:13] VITALS: BP 170/80; PULSE 75; RESP 18; TEMP 36.1; O2SAT 95
[2024-01-12] MEDS: Aspirin Enteric Coated 81 MG TABLET.DR PO (08:14)
[2024-01-12] MEDS: amLODIPine Besylate 10 MG TABLET PO (08:14)
[2024-01-12] MEDS: Anastrozole 1 MG TABLET PO (08:15)
[2024-01-12] MEDS: 0.9 % Sodium Chloride Flush 3 ML SYRINGE IVFLUSH (08:15)
[2024-01-12] MEDS: atenoloL 50 MG TABLET PO (08:15)
[2024-01-12] MEDS: levETIRAcetam 500 MG TABLET PO (08:15)
[2024-01-12] MEDS: Valsartan 160 MG TABLET PO (08:20)
--- NOTE | 2024-01-12 09:20 | P.DS_ITS ---
DS: Providers Provider Date of Service: 01/12/24 Date of admission: 01/09/24 20:17 Date of discharge: 01/12/24 Primary care physician: Kelvin Pruett MD Consults: 01/10/24 10:21 Consult to Nephrology Routine Consulting Provider: [facility] Reason for consultation: hyponatremia, ?siadh DS: Diagnosis Discharge Diagnosis (1) Hyponatremia: Status: Acute DS: Summary Hospital Course Hospital Course: from initial hpi: 83-year-old female with pertinent history of seizure disorder, hypertension, history of hemorrhagic CVA in 2000, hypothyroidism, history of breast cancer status post lumpectomy in 2022, moyamoya disease who was sent to the emergency department for evaluation of low-sodium. Patient states she made an appointment with her PCP as she was feeling unwell. Patient reports generalized weakness and easy fatigability that has been ongoing for the last 5-6 days. Outpatient blood work was done and patient's sodium was found to be 123 and she was asked to come to the ER. Patient was found to have low-sodium in the past attributed to sertraline which was discontinued. Admits poor p.o. intake due to weakness for the last few days. No nausea, vomiting or loose stools. No fever, chills, chest discomfort, palpitations, shortness of breath, abdominal pain, changes in urinary or bowel habits. No change in prescription medications in the last 1 week. In the emergency department, sodium was found to be 126. hospital course: patient admitted for acute hyponatremia due to siadh. patient was put on fluid restriction, given 1 dose of urea, trileptal changed to keppra. sodium increased at acceptable rate. now 130 at discharge. will conitnue to follow outpaitent with nephrology. for unctonrolled hypertenison was continued on atenolol, ARB, and amlodipine increased to 10mg daily. For hypothyroid was continued on Synthroid. For mood disorder was continue on Ativan, Remeron, trazodone. For history of hemorrhagic CVA continued on antiepileptic. For history of breast cancer was continued on anastrozole. Patient is feeling better will be discharged home. Time Attestation Discharge Coordination Time (in mins): 34 Quality: Safe Use of Opioids Does Pt have an Active Cancer Diagnosis on the Problem List?: No Quality: Stroke Does the patient have a stroke diagnosis?: No Physical Exam Vital Signs: Vital Signs: Last Vital Signs Temp 97.0 F 01/12/24 08:13 Pulse 75 01/12/24 08:13 Resp 18 01/12/24 08:13 BP 170/80 H 01/12/24 08:13 Pulse Ox 95 01/12/24 08:13 O2 Del Method Room Air 01/12/24 08:13 BMI result Body Mass Index 30.6 General: AO X 3, no acute distress Resp: CTA bilateral, no accessory muscles used CVS: S1,S2,RRR GI: soft, non tender, non distended Neuro: motor grossly intact, alert Psych: appropriate affect, appropriate insight DS: Data Data Completed and Pending Completed studies during hospitalization [Text1]: Procedures Introduction of Anesthetic Agent into Peripheral Nerves and Plexi, Percutaneous Approach (12/06/23) Replacement of Left Knee Joint with Synthetic Substitute, Cemented, Open Approach (12/06/23) Labs on day of discharge: Laboratory Results - last 24 hr 01/12/24 05:21 WBC 7.1 RBC 3.29 L Hgb 9.7 L Hct 28.8 L MCV 87.5 MCH 29.5 MCHC 33.7 RDW 13.9 Plt Count 404 H MPV 9.0 L Absolute Nucleated RBC 0.000 Nucleated RBC % (auto) 0.0 Sodium 130 L Potassium 3.9 Chloride 96 Carbon Dioxide 23 Anion Gap 15 BUN 18 H Creatinine 0.79 Estim Creat Clear Calc 55.3 Estimated GFR > 60 Fasting Glucose 92 Calcium 9.5 Discharge Plan Discharge Anticipated Discharge Date/Time: 01/12/24 09:14 Patient Disposition: Home, Self-Care Discharge Diagnosis: siadh, hyponatremia Referrals: Kelvin Pruett MD [Primary Care Provider] - 1 Week Ras Bangura MD [Physician] - 1 Week Discharge Medications: New levetiracetam 500 mg Tablet 500 mg PO BID Qty: 180 0RF amlodipine 10 mg Tablet 10 mg PO DAILY Qty: 90 0RF Protocol: Hold for SBP< HOLD for SBP < : 90 Continued irbesartan 300 mg tablet 300 mg PO DAILY Qty: 90 3RF (DME) walker Misc See Rx Instructions .ROUTE .MEDSUPPLY Qty: 1 0RF Rx Instructions: Folding front wheeled walker atenolol 50 mg tablet 50 mg PO DAILY Qty: 90 3RF lorazepam 0.5 mg tablet 0.5 mg PO BID PRN (Reason: anxiety) 30 Days Qty: 60 0RF mirtazapine 15 mg tablet 15 mg PO BEDTIME 90 Days Qty: 90 0RF aspirin 81 mg Tablet,Delayed Release (Dr/Ec) 81 mg PO DAILY levothyroxine 50 mcg tablet 50 mcg PO DAILY@0600 Rx Instructions: Take on an empty stomach, first thing in the morning, with water. Do not eat or drink anything else for 30 minutes afterwards oxycodone-acetaminophen [Percocet] 5-325 mg Tablet 1 tab PO Q4-6H PRN (Reason: Pain) Hold Instructions: Resume on 01/06/24. atorvastatin 80 mg tablet 80 mg PO BEDTIME acetaminophen 325 mg Tablet 650 mg PO Q6H PRN (Reason: Pain, Mild (Pain Scale 1-3), fever or headache) 30 Days Qty: 240 0RF docusate sodium 100 mg Capsule 100 mg PO DAILY PRN (Reason: Constipation) 30 Days Qty: 30 0RF senna 8.6 mg capsule 8.6 mg PO BEDTIME PRN (Reason: constipation) 90 Days Qty: 90 3RF anastrozole 1 mg tablet 1 mg PO DAILY 90 Days Qty: 90 1RF Discontinued amlodipine 5 mg tablet 5 mg PO DAILY Qty: 90 3RF oxcarbazepine 300 mg Tablet 450 mg PO BEDTIME oxcarbazepine 300 mg tablet 300 mg PO DAILY Discharge Orders: Discharge Order (Routine); Ordered 01/12/24 Ordered By: Reilly Michael Diet: fluid restrict 1.5L per d Activity on Discharge: As tolerated Stand Alone Forms: Patient Portal Discharge page Print Language: Azerbaijani Other Ambulatory Orders: Basic Metabolic Panel (Routine) Timeframe: 1 Week Facility: [facility] - Location: Laboratory Ordered By: Reilly Michael Care Plan Goals: manage low sodium and high blood pressure Health Concerns: low sodium, high blood pressure Plan of Treatment: trileptal changed to keppra continue fluid restrict 1.5L per day amlodipine incrased to 10mg daily follow up bmp in about 1 week follow up with nephrology Assessment: see above
[2024-01-12] MEDS: Acetaminophen 325 MG TABLET 650 MG PO (09:26)
--- NOTE | 2024-01-12 11:12 | MHC.CM.PN ---
PT WILL DC HOME TODAY WITH RESUMPTION OF [facility] DAUGHTER TO TRANSPORT
== END 2024-01-12 11:38 | disposition home or self-care (01) | DRG 644 ==
LOC: HO.ED 19:58 → HO.EDOVER 20:48 → HO.S3 01-10 07:42
PROVIDERS: Internal Medicine Nephrology; Admitting Provider Student in an Organized Health Care Education/Training Program; Emergency Provider Emergency Medicine; PCP Internal Medicine; Visit Provider Internal Medicine
DX: E22.2 Syndrome of inappropriate secretion of antidiuretic hormone (principal); I67.5 Moyamoya disease; G40.909 Epilepsy, unspecified, not intractable, without status epilepticus; T42.1X5A Adverse effect of iminostilbenes, initial encounter; E03.9 Hypothyroidism, unspecified; I10 Essential (primary) hypertension; C50.912 Malignant neoplasm of unspecified site of left female breast; F39 Unspecified mood [affective] disorder; Z79.811 Long term (current) use of aromatase inhibitors; Z87.891 Personal history of nicotine dependence; Z86.73 Personal history of transient ischemic attack (TIA), and cerebral infarction without residual deficits; Z79.82 Long term (current) use of aspirin; Z79.890 Hormone replacement therapy; Z79.899 Other long term (current) drug therapy
CPT/HCPCS: 36415; 80048; 80053; 82533; 83930; 83935; 84300; 84443; 85025; 85027; 93005; 97161; 99285; J1650

== ENCOUNTER → 2024-01-09 20:15 | Outpatient (BNV) | payer MEDICARE, SELFPAY | PROVIDERS: Admitting Provider Student in an Organized Health Care Education/Training Program; Emergency Provider Emergency Medicine; PCP Internal Medicine; Visit Provider Internal Medicine | DX: I49.1 Atrial premature depolarization (principal) | CPT/HCPCS: 93010 ==

== ENCOUNTER → 2024-01-09 20:17 | Outpatient (BNV) | payer MEDICARE, SELFPAY | PROVIDERS: Admitting Provider Student in an Organized Health Care Education/Training Program; Emergency Provider Emergency Medicine; PCP Internal Medicine; Visit Provider Internal Medicine Nephrology | DX: E87.1 Hypo-osmolality and hyponatremia (principal) | CPT/HCPCS: 99223; 99232 ==

== ENCOUNTER → 2024-01-09 20:17 | Outpatient (BNV) | payer MEDICARE, SELFPAY | PROVIDERS: Admitting Provider Student in an Organized Health Care Education/Training Program; Emergency Provider Emergency Medicine; PCP Internal Medicine; Visit Provider Student in an Organized Health Care Education/Training Program | DX: E87.1 Hypo-osmolality and hyponatremia (principal) | CPT/HCPCS: 99222; 99232; 99233; 99239 ==

== ENCOUNTER → 2024-01-24 23:59 | Outpatient (BNV) | payer MEDICARE, SELFPAY | PROVIDERS: PCP Internal Medicine; Visit Provider Internal Medicine | DX: I10 Essential (primary) hypertension (principal); K59.00 Constipation, unspecified; H25.9 Unspecified age-related cataract; R56.9 Unspecified convulsions | CPT/HCPCS: G0180 ==

== ENCOUNTER 2024-01-26 10:13 | Outpatient (AMB) | payer MEDICARE, SELFPAY ==
--- NOTE | 2024-01-26 10:25 | A.OFFVIS_ITS ---
Vital Signs 01/26/24 10:31 Height 5 ft 3 in Weight 157 lb BMI 27.8 Intake Visit Reasons: PO - L TKA w/NE 12/06/23 - Infection Concern! Intake Note: Jennie an 83 year old female who presents today for a post operative left TKA on 12/06/23 NE. Patient reports ongoing swelling and pain around her knee. At night her pain is worse. States she has not been feeling well, having a lot of fatigue and not appetite to eat. Allergies phenytoin [Dilantin] Allergy (Severe, Verified 01/09/24 19:47) Hives sertraline [SERTRALINE] Allergy (Severe, Verified 01/09/24 19:47) DROPPED SODIUM LEVEL, BP increase Sodium drop aspirin [ASPIRIN] Allergy (Intermediate, Verified 01/09/24 19:47) RISK OF BLEDING NSAIDS (Non-Steroidal Anti-Inflamma Allergy (Unknown, Verified 01/09/24 19:47) risk of bleeding Medication List - Last Reconciled 01/26/24 by Allan Tineo PA-C acetaminophen 650 mg (2 x 325 mg) PO Q6H PRN 30 days amlodipine 10 mg See Protocol PO DAILY anastrozole 1 mg PO DAILY 90 days aspirin 81 mg PO DAILY atenolol 50 mg PO DAILY atorvastatin 80 mg PO BEDTIME docusate sodium 100 mg PO DAILY PRN 30 days irbesartan 300 mg PO DAILY levetiracetam 500 mg PO BID levothyroxine 50 mcg PO DAILY@0600 lorazepam 0.5 mg PO BID PRN 30 days mirtazapine 15 mg PO BEDTIME 90 days oxycodone-acetaminophen 5-325 mg (Percocet) 1 tab PO Q4-6H PRN sennosides (senna) 8.6 mg PO BEDTIME PRN 90 days walker Folding front wheeled walker HPI HPI PO - L TKA w/NE 12/06/23 - Infection Concern!: Details: 83-year-old female who returns to the office today for post-op left TKA, 12/06/[address]. She states she has ongoing pain and swelling around her knee. Her pain is aggravated at night. She also reports she is not doing well having weakness and fatigue. [facility] Medical History Seasonal allergies Osteopenia Constipation Acquired hypothyroidism Overweight (BMI 25.0-29.9) Cataract Seizures Stroke (~2000) Ash ash disease (~2000) Urinary frequency Allergic rhinitis Degenerative disc disease, cervical Neck pain Depression Anxiety Insomnia Epilepsy Obesity (BMI 30-39.9) Osteoarthritis Benign essential hypertension Pure hypercholesterolemia Rib pain on right side Left shoulder pain Recurrent dry cough Pain of right scapula Right-sided thoracic back pain Surgical History History of left knee replacement H/O breast surgery Hx of colonoscopy History of kidney surgery Status post cervical disc replacement History of knee replacement procedure of right knee Hx of knee surgery Family History Father Chronic mental illness Mother Hypertension Other Mental health problem Social History Household Members: None Housing: House Are you a primary morning caregiver to a significant other at home: No Do you presently have visiting nurse or other home services: Yes Alcohol intake: current Alcohol intake frequency: holidays/special occasions only Alcohol type: wine Comment: not documented previous shift Patient Tobacco Use Status: Former Tobacco user Tobacco use type: Cigarette Years Smoked: 10 e-Cigarette/Vaping Use: Never Used Second Hand Smoke Exposure: No Advance Directives Date on File: 05/23/23 service: No Current occupational status: retired Cognitive needs: Yes (Walker) Hearing needs: No Vision needs: No Review of Systems Const All systems reviewed & are unremarkable except as noted in HPI and below Physical Exam Vital Signs: BMI result Body Mass Index 27.8 Extrem Other: Left knee: Incision well healed. No redness or joint effusion. She does have tenderness at the posterior aspect of knee with a palpable mass along the posterolateral aspect of her knee. Calf supple, nontender. She has good pulses and sensation is intact. Assessment & Plan Assessment & Plan (1) Status post total left knee replacement: Code(s): Z96.652 - Presence of left artificial knee joint Category: Surgical Plan A STAT US of LLE was ordered to rule out DVT. If the results are positive, we will get her on therapeutic treatment. As for her feeling weak, I am aware of her issues balancing in rehab and when she was discharged from the rehab. I feel this is something she should adjust with her PCP and she does have an appointment with the PCP on Monday at 11:30 AM. If there are any other urgent concerns, she should reach out to her PCP sooner or see the ED. I will contact her with the results once the US is complete. Orders: Orders US venous duplex LE LT Today R22.42 - Localized swelling, mass and lump, left lower limb, R60.9 - Edema, unspecified, Z96.652 - Presence of left artificial kn ee joint Patient Instructions: Scribed for Allan Tineo PA-C, by Ramon Lynn rn medical inpatient services, on 01/26/2024 at 10:15 AM EST.? I, Allan Tineo PA-C, have personally reviewed and agree with the information entered by the scribe. Coding Level of Care Code Global (94165) Diagnoses Status post total left knee replacement Z96.652
[2024-01-26 10:31] VITALS: BMI 27.8
== END 2024-01-26 11:07 | disposition home or self-care (01) ==
PROVIDERS: PCP Internal Medicine; Visit Provider Physician Assistant
DX: Z96.652 Presence of left artificial knee joint (principal)
CPT/HCPCS: 99024

== ENCOUNTER → 2024-01-26 10:13 | Outpatient (BNVA) | payer MEDICARE, SELFPAY | PROVIDERS: PCP Internal Medicine; Visit Provider Physician Assistant ==

== ENCOUNTER 2024-01-26 11:15 | Outpatient (REF) | payer MEDICARE, SELFPAY ==
--- NOTE | ~2024-01-26 | US_ITS ---
EXAMINATION: US TRIPLEX LOWER EXTREMITY, LEFT CLINICAL INFORMATION: Left lower extremity edema COMPARISON: None available. TECHNIQUE: Color-flow triplex imaging with spectral analysis and compression Doppler were performed on the left lower extremity. FINDINGS: Respiratory variation, normal compression and augmented flow are noted throughout the left lower extremity. The visualized common femoral vein, superficial femoral vein, profunda femoral vein, popliteal vein and midcalf peroneal and posterior tibial venous segments show no evidence of deep venous thrombosis. 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 Large Maddox's cyst Electronically signed by: Solo Schwartz MD 01/26/2024 01:06 PM EDT
== END 2024-01-26 11:16 | disposition home or self-care (01) ==
LOC: HO.US 11:15
PROVIDERS: PCP Internal Medicine; Visit Provider Physician Assistant
DX: R60.9 Edema, unspecified (principal); Z96.652 Presence of left artificial knee joint; R22.42 Localized swelling, mass and lump, left lower limb; M71.22 Synovial cyst of popliteal space [Baker], left knee
CPT/HCPCS: 93971; 99212

== ENCOUNTER 2024-01-30 08:00 | Outpatient (REF) | payer MEDICARE, SELFPAY ==
[2024-01-30 10:07] LABS: MANUAL DIFF FLAG NO
[2024-01-30 10:17] LABS: Basophils Percent Auto 0.3 % (0-2); Eosinophils Absolute Auto 0.1 X10*3/uL (0.0-0.4); Eosinophils Percent Auto 1.4 % (0-4); Hematocrit 32.5 % (37.0-47.0); Hemoglobin 10.7 g/dl (12.0-16.0); Imm Gran Abs Auto 0.06 X10*3/uL (0.00-0.03); Imm Gran Pct Auto 0.7 % (0.0-0.4); Lymphocytes Absolute Auto 1.2 X10*3/uL (1.2-4.9); Lymphocytes Percent Auto 13.5 % (20-40); Mean Corpuscular HGB Conc 32.9 g/dl (31.0-35.0); Mean Corpuscular Hemoglobin 29.6 pg (27.0-33.0); Mean Platelet Volume 9.3 fL (9.4-12.3); Monocytes Absolute Auto 0.7 X10*3/uL (0.1-1.2); Monocytes Percent Auto 7.6 % (2-11); Neutrophils Percent Auto 76.5 % (45-73); Platelet Count 371 X10*3/uL (160-400); Red Blood Count 3.61 X10*6/uL (4.20-5.50); Red Cell Distribution Width 14.1 % (11.0-16.0); White Blood Count 9.1 X10*3/uL (4.8-10.8)
[2024-01-30 10:36] LABS: Appearance Urine Clear; Color Urine Yellow; Glucose Urine UA Negative (Negative); Leukocyte Esterase Urine Trace (Negative); Nitrite Urine Negative (Negative); PH 5.5 (5.0-9.0); Specific Gravity - Urine 1.025 (1.005-1.025); UMIC TRIGGER UACC YES; Urine Blood Negative (Negative); Urine Ketones Negative (Negative); Urine Protein Negative (Neg-Trace)
[2024-01-30 10:47] LABS: Alanine Aminotransferase 21 U/L (0-31); Albumin Level 3.9 g/dL (3.5-5.0); Alkaline Phosphatase 118 U/L (39-117); Anion Gap 16 (12-20); Aspartate Amino Transferase 19 U/L (5-31); Bilirubin Total 0.2 mg/dL (0.0-1.0); Blood Urea Nitrogen 14 mg/dL (9-16); Calcium 9.5 mg/dL (8.4-10.2); Carbon Dioxide 21 mmol/L (22-29); Chloride 96 mmol/L (96-108); Cholesterol 135 mg/dL (<200); Estimated Glomerular Filt Rate > 60; Free T4 (Free Thyroxine) 0.75 ng/dL (0.71-1.85); Glucose Fasting 114 mg/dL (60-99); HDL Cholesterol 46 mg/dL (>40); LDL Cholesterol Calculated 70 mg/dL (<100); Potassium 4.5 mmol/L (3.3-5.1); Sodium 128 mmol/L (135-145); Thyroid Stimulating Hormone 0.94 uIU/mL (0.32-4.0); Triglycerides 97 mg/dL (<150); Vitamin D 25-OH Total 66.8 ng/mL (>30)
[2024-01-30 10:53] LABS: Bacteria Urine None Seen (None Seen); Calcium Oxalate Crystals Urine Present; Hyaline Casts Urine 0-2 /LPF (0-2); RBC Urine 0-2 /HPF (0-2); Squamous Epithelial Cell Urine 0-2 /HPF (0-2); Vitamin B12 337 pg/mL (200-900); WBC Urine 0-5 /HPF (0-5)
== END 2024-01-30 08:01 | disposition home or self-care (01) ==
LOC: HO.HMGCLDS 08:00
PROVIDERS: PCP Internal Medicine; Visit Provider Internal Medicine
DX: E78.00 Pure hypercholesterolemia, unspecified (principal); E53.8 Deficiency of other specified B group vitamins; E03.9 Hypothyroidism, unspecified; D64.9 Anemia, unspecified; E55.9 Vitamin D deficiency, unspecified
CPT/HCPCS: 36415; 80053; 80061; 81001; 82306; 82607; 82746; 84439; 84443; 85025

== ENCOUNTER 2024-01-30 11:28 | Outpatient (AMB) | payer MEDICARE, SELFPAY ==
[2024-01-30 11:29] VITALS: BP 134/58; PULSE 78; O2SAT 96; BMI 27.5
--- NOTE | 2024-01-30 11:29 | A.OFFPC_ITS ---
Vital Signs 01/30/24 11:29 Height 5 ft 3 in Weight 155 lb 6 oz BMI 27.5 BP 134/58 L Blood Pressure Location Lt brachial Position Sitting Pulse 78 Pulse Source Pulse Oximeter Pulse Oximetry (%) 96 Oxygen Delivery Method Room Air Intake Visit Reasons: HDF [facility] Low sodium, fatigue National Insurance Officer Required: No Accompanied by: Self / Same As Patient Allergies phenytoin [Dilantin] Allergy (Severe, Verified 01/30/24 11:30) Hives sertraline [SERTRALINE] Allergy (Severe, Verified 01/30/24 11:30) DROPPED SODIUM LEVEL, BP increase Sodium drop aspirin [ASPIRIN] Allergy (Intermediate, Verified 01/30/24 11:30) RISK OF BLEDING NSAIDS (Non-Steroidal Anti-Inflamma Allergy (Unknown, Verified 01/30/24 11:30) risk of bleeding Tobacco use date assessed: 01/30/24 Fall risk assessment: 1 Fall in past year Last assessed Fall Risk: 01/30/24 Dental Screening Dental Screen Date: 01/30/24 Did you have a dental visit in the last 12 months?: No Did you have a dental problem in the last 6 months where you did not have access to dental care?: No Was dental information given to patient?: No HPI HPI Comments History of Present Illness Details 83 y/o male patient who presents to the clinic for HDF. Pt was admitted at [facility] on 01/09/24 and discharged home 01/17/24 for Anemia, and Hyponatremia due to SIADH. Pt has an appointment with Kidney Doctor 02/12/24. Pt continues to c/o generalized weakness, Fatigue, and poor appetite. Recent lab work done today still does show Low NA, Hemoglobin and HCT levels. S/p Breast CA with left Breast Lumpectomy, currently taking Anastrozole. CT Scan Abdomen done at [facility] negative for Metastasis. S/p left knee replacement. She does endorse left knee pain (Back of knee) and was told she had Maddox's cyst. [facility] Medical History Seasonal allergies Osteopenia Constipation Acquired hypothyroidism Overweight (BMI 25.0-29.9) Cataract Seizures Stroke (~2000) Ash ash disease (~2000) Urinary frequency Allergic rhinitis Degenerative disc disease, cervical Neck pain Depression Anxiety Insomnia Epilepsy Obesity (BMI 30-39.9) Osteoarthritis Benign essential hypertension Pure hypercholesterolemia Rib pain on right side Left shoulder pain Recurrent dry cough Pain of right scapula Right-sided thoracic back pain Surgical History History of left knee replacement H/O breast surgery Hx of colonoscopy History of kidney surgery Status post cervical disc replacement History of knee replacement procedure of right knee Hx of knee surgery Family History Father Chronic mental illness Mother Hypertension Other Mental health problem Social History Household Members: None Housing: House Are you a primary children's zoo caretaker to a significant other at home: No Do you presently have visiting nurse or other home services: Yes Alcohol intake: current Alcohol intake frequency: holidays/special occasions only Alcohol type: wine Comment: not documented previous shift Patient Tobacco Use Status: Former Tobacco user Tobacco use type: Cigarette Years Smoked: 10 e-Cigarette/Vaping Use: Never Used Second Hand Smoke Exposure: No Advance Directives Date on File: 05/23/23 service: No Current occupational status: retired Cognitive needs: Yes (Walker) Hearing needs: No Vision needs: No Questionnaire PHQ-9 Over the last 2 weeks, how often have you been bothered by any of the following problems? 1. Little interest or pleasure in doing things: not at all 2. Feeling down, depressed, or hopeless: not at all 3. Trouble falling or staying asleep, or sleeping too much: not at all 4. Feeling tired or having little energy: not at all 5. Poor appetite or overeating: not at all 6. Feeling bad about yourself - or that you are a failure or have let yourself or your family down: not at all 7. Trouble concentrating on things, such as reading the newspaper or watching television: not at all 8. Moving or speaking so slowly that other people could have noticed. Or the opposite - being so fidgety or restless that you have been moving around a lot more than usual: not at all 9. Thoughts that you would be better off or of hurting yourself in some way: not at all Total score: 0 Depression Screening Interpretation: Negative Depression Screening Done: Yes [id number] - PHQ-9 Billing: Yes Source: Developed by Drs. Michoacano Hanson, Dayanna Car, Javier Spain and colleagues, with an educational zach from [employer]. Thrive Questionnaire Date Thrive assessed: 01/30/24 I am a: Patient What is your living situation today?: I have a steady place to live Within the past 12 months, did the food you bought not last and you didn't have the money to get more?: Never true Within the past 12 months, did you worry whether your food would run out before you got money to buy more?: Never true Do you have trouble paying for medicines?: No Do you have trouble getting transportation to medical appointments?: No Do you have trouble paying your heating and electricity bill?: No Do you have trouble taking care of your child, family member or friend?: No Do you have trouble with day-to-day activities such as bathing, preparing meals, shopping, managing finances, etc.?: No Are you currently unemployed and looking for a job?: No Are you interested in more education?: No Please select the resources that you would like help with: None Currently or been in a relationship where the following occur: No concerns re ported THRIVE Score: 0 AUDIT C Alcohol Use Questionnaire (AUDIT-C) 1. How often do you have a drink containing alcohol?: Never 3. How often do you have six or more drinks on one occasion?: Never Total Score: 0 Score Reviewed/Action Taken: Yes FEI-7 AMB Questionnaire FEI-7 Date FEI - 7 assessed: 01/30/24 Feeling nervous, anxious, or on edge: 0 = Not at all Not being able to stop or control worryin = Not at all Worrying too much about different things: 0 = Not at all Trouble relaxin = Not at all Being so restless that it is hard to sit still: 0 = Not at all Becoming easily annoyed or irritable: 0 = Not at all Feeling afraid as if something awful might happen: 0 = Not at all Total FEI-7 score (0-4 normal; 5-9 mild; 10-14 moderate; 15-21 severe): 0 Source: Developed by Dayanna Acosta Kurt Kroenke and colleagues, with an educational zach from [employer]. Review of Systems Const All systems reviewed & are unremarkable except as noted in HPI and below Physical exam (Primary Care) Vital Signs: Last Vital Signs Pulse 78 01/30/24 11:29 BP 134/58 L 01/30/24 11:29 Pulse Ox 96 01/30/24 11:29 Oxygen Delivery Method Room Air 01/30/24 11:29 BMI result Body Mass Index 27.5 Tobacco/Smoking Status: Tobacco use Status Tobacco use date assessed 01/30/24 01/30/24 11:39 Patient Tobacco Use Status Former Tobacco user 01/30/24 11:39 Tobacco use type Cigarette 01/30/24 11:39 e-Cigarette/Vaping Use Never Used 01/30/24 11:39 PHQ-9: PHQ-9 Score PHQ-9: Total score 0 01/30/24 11:39 Depression Screening Interpretation: Negative Thrive Assessment: Date of Thrive Assessment Date Thrive assessed 01/30/24 01/30/24 11:39 Currently or been in a relationship where the following occur: No concerns reported Const General: cooperative and no acute distress Nutritional Appearance: obese Orientation/consciousness: patient oriented x3 Resp Effort & Inspection: normal respiratory effort Cardio Heart sounds: S1 normal heart sound present and S2 normal heart sound present Skin General skin exam: no rashes or lesions noted Neuro General: patient oriented x3 Extrem Left lower extremity: knee (Well healing scar left knee from TKR) Details: normal to inspection (Palpable small cyst behind left knee) and normal ROM; no tenderness and no swelling Psych Speech and movement: Normal speech and movement present Assessment and Plan Assessment & Plan (1) Acute hyponatremia: Code(s): E87.1 - Hypo-osmolality and hyponatremia Plan: Due to SIADH Pt to f/u with Kidney specialist 02/11 Continue on Fluid restriction (2) Poor appetite: Code(s): R63.0 - Anorexia Plan: Small simple meals Ensure Protein shakes PRN (3) General weakness: Code(s): R53.1 - Weakness Plan: Take frequent Rests As needed. (4) Anemia, iron deficiency: Code(s): D50.9 - Iron deficiency anemia, unspecified Qualifiers: Iron deficiency anemia type: other iron deficiency Qualified Code(s): D50.8 - Other iron deficiency anemias Plan: Increase Iron intake. F/U with Kidney Specialist Coding Level of Care Code Est Pt Level 4 (03108) Diagnoses Acute hyponatremia E87.1 Poor appetite R63.0 General weakness R53.1 Other iron deficiency anemia D50.8 Iron deficiency anemia type: other iron deficiency Time Spent (min) 20 Comment Spent reviewing Hospital notes and Patient education
== END 2024-01-30 13:10 | disposition home or self-care (01) ==
PROVIDERS: PCP Internal Medicine; Visit Provider Nurse Practitioner Family
DX: E87.1 Hypo-osmolality and hyponatremia (principal); R63.0 Anorexia; R53.1 Weakness; D50.8 Other iron deficiency anemias
CPT/HCPCS: 99214

== ENCOUNTER 2024-02-02 09:06 | Outpatient (REF) | payer MEDICARE, SELFPAY | END 2024-02-02 09:07 | disposition home or self-care (01) | LOC: HO.MAMMO 09:06 | PROVIDERS: PCP Internal Medicine; Visit Provider Internal Medicine | DX: Z13.89 Encounter for screening for other disorder (principal) ==

== ENCOUNTER 2024-02-12 14:59 | Outpatient (AMB) | payer MEDICARE, SELFPAY ==
[2024-02-12 15:02] VITALS: BP 142/56; PULSE 79; O2SAT 95; BMI 27.5
--- NOTE | 2024-02-12 15:02 | HO.NEPHOV ---
Vital Signs 02/12/24 15:02 Height 5 ft 3 in Weight 155 lb BMI 27.5 BP 142/56 H Blood Pressure Location Rt brachial Position Sitting Pulse 79 Pulse Source Pulse Oximeter Pulse Oximetry (%) 95 Oxygen Delivery Method Room Air Intake Visit Reasons: DX-Hyponatremia/ LVM Duty Officer Required: No Accompanied by: Daughter Allergies phenytoin [Dilantin] Allergy (Severe, Verified 02/12/24 15:04) Hives sertraline [SERTRALINE] Allergy (Severe, Verified 02/12/24 15:04) DROPPED SODIUM LEVEL, BP increase Sodium drop aspirin [ASPIRIN] Allergy (Intermediate, Verified 02/12/24 15:04) RISK OF BLEDING NSAIDS (Non-Steroidal Anti-Inflamma Allergy (Unknown, Verified 02/12/24 15:04) risk of bleeding Medication List - Last Reconciled 02/12/24 by Saurav Ariza MD acetaminophen 650 mg (2 x 325 mg) PO Q6H PRN 30 days amlodipine 10 mg See Protocol PO DAILY anastrozole 1 mg PO DAILY 90 days aspirin 81 mg PO DAILY PRN atenolol 50 mg PO DAILY atorvastatin 80 mg PO BEDTIME docusate sodium 100 mg PO DAILY PRN 30 days irbesartan 300 mg PO DAILY levothyroxine 50 mcg PO DAILY@0600 lorazepam 0.5 mg PO BID PRN 30 days mirtazapine 15 mg PO BEDTIME 90 days oxcarbazepine 300 mg PO BID oxycodone-acetaminophen 5-325 mg (Percocet) 1 tab PO Q4-6H PRN sennosides (senna) 8.6 mg PO BEDTIME PRN 90 days walker Folding front wheeled walker HPI Comments Details: Jennie is a pleasant 83 year year old woman with a history of moyamoya disease. She has history of seizures and she has been on Trileptal. She was recently hospitalized at [facility] and was found to hyponatremia. Trileptal was discontinued and she was placed on Keppra apparently she did not tolerate Keppra and she has been placed back on oxcarbazepine 300 mg b.i.d.. She had a repeat admission to [facility] for hyponatremia. Extensive workup was done. She was unable to tolerate urea powder due to the taste. She is drinking about 4 glasses of water at home. She continues have fatigue. Recent thyroid function was normal cortisol was normal. Urine osmolality was 295 with a urine sodium of 96 back in December of 2023. [facility] Medical History Seasonal allergies Osteopenia Constipation Acquired hypothyroidism Overweight (BMI 25.0-29.9) Cataract Seizures Stroke (~2000) Ash ash disease (~2000) Urinary frequency Allergic rhinitis Degenerative disc disease, cervical Neck pain Depression Anxiety Insomnia Epilepsy Obesity (BMI 30-39.9) Osteoarthritis Benign essential hypertension Pure hypercholesterolemia Rib pain on right side Left shoulder pain Recurrent dry cough Pain of right scapula Right-sided thoracic back pain Surgical History History of left knee replacement H/O breast surgery Hx of colonoscopy History of kidney surgery Status post cervical disc replacement History of knee replacement procedure of right knee Hx of knee surgery Family History Father Chronic mental illness Mother Hypertension Other Mental health problem Social History Household Members: None Housing: House Are you a primary customer care voice consultant to a significant other at home: No Do you presently have visiting nurse or other home services: Yes Alcohol intake: current Alcohol intake frequency: holidays/special occasions only Alcohol type: wine Comment: not documented previous shift Patient Tobacco Use Status: Former Tobacco user Tobacco use type: Cigarette Years Smoked: 10 e-Cigarette/Vaping Use: Never Used Second Hand Smoke Exposure: No Advance Directives Date on File: 05/23/23 service: No Current occupational status: retired Cognitive needs: Yes (Walker) Hearing needs: No Vision needs: No Review of Systems Const Reports as per HPI, Denies anorexia, Denies fatigue, Denies fever(s) and Denies headache(s) Eyes Denies blurry vision ENT Denies headache(s) Card Denies chest pain, Denies pedal edema and Denies dyspnea Resp Denies cough, Denies hemoptysis and Denies dyspnea GI Denies diarrhea, Denies nausea and Denies vomiting Denies hematuria, Denies urinary frequency and Denies urinary hesitancy Neuro Denies confusion, Denies headache(s) and Denies focal weakness Psych Denies confusion Endo Denies cold intolerance, Denies fatigue and Denies polyuria Physical Exam Vital Signs: Last Vital Signs Pulse 79 02/12/24 15:02 BP 142/56 H 02/12/24 15:02 Pulse Ox 95 02/12/24 15:02 Oxygen Delivery Method Room Air 02/12/24 15:02 BMI result Body Mass Index 27.5 Const General: No confusion Orientation/consciousness: No confusion Eyes General: appearance normal, both eyes and all related structures Visual Lomeli: normal visual lomeli by confrontation Neck Neck: Yes supple and Yes no JVD Resp Effort & Inspection: normal respiratory effort and respiratory effort not decreased Auscultation: rhonchi Cardio Palpation: no palpable S3 and no palpable S4 Heart sounds: no rubs GI Inspection: Yes normal to inspection Palpation (GI): Soft to palpation Percussion: Yes normal to percussion Auscultation: normal bowel sounds General: Yes no CVA tenderness Back/Spine/Pelvis Back: no CVA tenderness Skin General skin exam: no petechiae and no purpura Neuro General: No confusion Extrem General: No clubbing and No edema Results Reviewed Nephrology Results: Hgb 10.7 g/dl (12.0-16.0) L 01/30/24 WBC 9.1 X10*3/uL (4.8-10.8) 01/30/24 Plt Count 371 X10*3/uL (160-400) 01/30/24 Sodium 128 mmol/L (135-145) L 01/30/24 Potassium 4.5 mmol/L (3.3-5.1) 01/30/24 Chloride 96 mmol/L (96-108) 01/30/24 Carbon Dioxide 21 mmol/L (22-29) L 01/30/24 BUN 14 mg/dL (9-16) 01/30/24 Creatinine 0.77 mg/dL (0.5-1.4) 01/30/24 Calcium 9.5 mg/dL (8.4-10.2) 01/30/24 Urine Protein Negative mg/dL (Neg-Trace) 01/30/24 Assessment & Plan Assessment & Plan (1) Acute hyponatremia: Code(s): E87.1 - Hypo-osmolality and hyponatremia Category: Medical Plan Elderly woman with hyponatremia. Jennie most likely has decreased free water clearance due to non osmotic ADH release. Oxcarbazepine could be playing a role in decreasing free water clearance. Recent thyroid function was normal Cortisol level was normal. Recommendation limit free water intake. Encouraged her to drink Gatorade or Powerade instead. Keep her on regular salt diet. I will hold off on adding sodium chloride tablets due to underlying hypertension. She is unable to tolerate urea powder therefore I will not restart urea powder. Recheck serum sodium serum osmolality and urine sodium and osmolality. Goal is to maintain serum sodium more than 133 millimoles. If the serum sodium persistently stays less than 133 we should consider switching oxcarbazepine to a different agent. I have answered all her questions Orders: Orders Osmolality, Serum Today E87.1 - Hypo-osmolality and hyponatremia Basic Metabolic Panel 1 Week E87.1 - Hypo-osmolality and hyponatremia Basic Metabolic Panel Today E87.1 - Hypo-osmolality and hyponatremia Coding Level of Care Code Est Pt Level 4 (70966) Diagnoses Acute hyponatremia E87.1
== END 2024-02-12 15:38 | disposition home or self-care (01) ==
PROVIDERS: PCP Internal Medicine; Visit Provider Internal Medicine Hypertension Specialist
DX: E87.1 Hypo-osmolality and hyponatremia (principal)
CPT/HCPCS: 99214

== ENCOUNTER → 2024-02-12 14:59 | Outpatient (BNVA) | payer MEDICARE, SELFPAY | PROVIDERS: PCP Internal Medicine; Visit Provider Internal Medicine Hypertension Specialist | DX: E87.1 Hypo-osmolality and hyponatremia (principal) | CPT/HCPCS: 99212 ==

== ENCOUNTER 2024-02-13 06:45 | Outpatient (REF) | payer MEDICARE, SELFPAY ==
[2024-02-13 10:16] LABS: Appearance Urine Clear; Color Urine Yellow; Glucose Urine UA Negative (Negative); Leukocyte Esterase Urine Negative (Negative); Nitrite Urine Negative (Negative); Specific Gravity - Urine 1.015 (1.005-1.025); Urine Blood Negative (Negative); Urine Ketones Negative (Negative); Urine Protein Negative (Neg-Trace)
[2024-02-13 10:51] LABS: Anion Gap 12 (12-20); Blood Urea Nitrogen 16 mg/dL (9-16); Calcium 10.1 mg/dL (8.4-10.2); Carbon Dioxide 27 mmol/L (22-29); Chloride 107 mmol/L (96-108); Estimated Glomerular Filt Rate > 60; Glucose Random 104 mg/dL (60-115); Potassium 4.4 mmol/L (3.3-5.1); Sodium 142 mmol/L (135-145)
[2024-02-13 13:32] LABS: Osmolality, Serum 292 mosm/kg (281-305)
== END 2024-02-13 06:46 | disposition home or self-care (01) ==
LOC: HO.HMGCLDS 06:45
PROVIDERS: PCP Internal Medicine; Visit Provider Internal Medicine Hypertension Specialist
DX: R30.0 Dysuria (principal); E87.1 Hypo-osmolality and hyponatremia
CPT/HCPCS: 36415; 80048; 81003; 83930

== ENCOUNTER 2024-02-16 09:58 | Outpatient (AMB) | payer MEDICARE, SELFPAY ==
[2024-02-16 10:00] VITALS: BMI 27.5
--- NOTE | 2024-02-16 10:00 | A.OFFVIS_ITS ---
Vital Signs 02/16/24 10:00 Height 5 ft 3 in Weight 155 lb BMI 27.5 Intake Visit Reasons: PO: L TKA w/NE 12/06/23 Intake Note: Jennie is an 83 year old female who presents today for a post operative appointment s/p Left TKA 12/06/23 At her last visit a STAT US was ordered to rule out DVT due to increased pain, fatigue and lack of appetite. The US was negative for DVT. Patient reports that she has continued pain in the left knee, most of her discomfort is due to the bakers cyst. She has tried Ice & Heat application with little to no relief. Her symptoms are worsened with ambulation of stairs and prolonged walking. Allergies phenytoin [Dilantin] Allergy (Severe, Verified 02/16/24 13:57) Hives sertraline [SERTRALINE] Allergy (Severe, Verified 02/16/24 13:57) DROPPED SODIUM LEVEL, BP increase Sodium drop aspirin [ASPIRIN] Allergy (Intermediate, Verified 02/16/24 13:57) RISK OF BLEDING NSAIDS (Non-Steroidal Anti-Inflamma Allergy (Unknown, Verified 02/16/24 13:57) risk of bleeding HPI HPI PO: L TKA w/NE 12/06/23: Details: Jennie is an 83 year old female who presents today for a post operative appointment s/p Left TKA 12/06/23 At her last visit a STAT US was ordered to rule out DVT due to increased pain, fatigue and lack of appetite. The US was negative for DVT. Patient reports that she has continued pain in the left knee, most of her discomfort is due to the bakers cyst. She has tried Ice & Heat application with little to no relief. Her symptoms are worsened with ambulation of stairs and prolonged walking. [facility] Medical History Seasonal allergies Osteopenia Constipation Acquired hypothyroidism Overweight (BMI 25.0-29.9) Cataract Seizures Stroke (~2000) Ash ash disease (~2000) Urinary frequency Allergic rhinitis Degenerative disc disease, cervical Neck pain Depression Anxiety Insomnia Epilepsy Obesity (BMI 30-39.9) Osteoarthritis Benign essential hypertension Pure hypercholesterolemia Rib pain on right side Left shoulder pain Recurrent dry cough Pain of right scapula Right-sided thoracic back pain Surgical History History of left knee replacement H/O breast surgery Hx of colonoscopy History of kidney surgery Status post cervical disc replacement History of knee replacement procedure of right knee Hx of knee surgery Family History Father Chronic mental illness Mother Hypertension Other Mental health problem Social History Household Members: None Housing: House Are you a primary healthcare representative to a significant other at home: No Do you presently have visiting nurse or other home services: Yes Alcohol intake: current Alcohol intake frequency: holidays/special occasions only Alcohol type: wine Comment: not documented previous shift Patient Tobacco Use Status: Former Tobacco user Tobacco use type: Cigarette Years Smoked: 10 e-Cigarette/Vaping Use: Never Used Second Hand Smoke Exposure: No Advance Directives Date on File: 05/23/23 service: No Current occupational status: retired Cognitive needs: Yes (Walker) Hearing needs: No Vision needs: No Physical Exam Vital Signs: BMI result Body Mass Index 27.5 Extrem Other: Incision clean dry and intact 0-125 degrees of motion Stable to varus and valgus stress. Assessment & Plan Assessment & Plan (1) Status post total left knee replacement: Code(s): Z96.652 - Presence of left artificial knee joint Category: Surgical Plan: Jennie is doing very well. She does not think she is doing well but her motion is good her incision looks good and I tried to reassure her. I recommend she continue strengthening and see me in 6 weeks. Orders: Orders PT Evaluation and Treatment 02/16/24 Z96.652 - Presence of left artificial knee joint Coding Level of Care Code Global (02146) Diagnoses Status post total left knee replacement Z96.652
== END 2024-02-16 10:39 | disposition home or self-care (01) ==
PROVIDERS: PCP Internal Medicine; Visit Provider Orthopaedic Surgery
DX: Z96.652 Presence of left artificial knee joint (principal)
CPT/HCPCS: 99024

== ENCOUNTER → 2024-02-16 09:58 | Outpatient (BNVA) | payer MEDICARE, SELFPAY | PROVIDERS: PCP Internal Medicine; Visit Provider Orthopaedic Surgery | DX: E78.00 Pure hypercholesterolemia, unspecified (principal); I10 Essential (primary) hypertension; E87.1 Hypo-osmolality and hyponatremia; I49.1 Atrial premature depolarization; M17.12 Unilateral primary osteoarthritis, left knee; M50.30 Other cervical disc degeneration, unspecified cervical region; Z98.1 Arthrodesis status; C50.912 Malignant neoplasm of unspecified site of left female breast; Z79.811 Long term (current) use of aromatase inhibitors; Z17.0 Estrogen receptor positive status [ER+]; D64.9 Anemia, unspecified; E03.9 Hypothyroidism, unspecified; M85.80 Other specified disorders of bone density and structure, unspecified site; G40.909 Epilepsy, unspecified, not intractable, without status epilepticus; K59.00 Constipation, unspecified; N32.81 Overactive bladder; G47.00 Insomnia, unspecified; F41.9 Anxiety disorder, unspecified; F32.9 Major depressive disorder, single episode, unspecified; E66.3 Overweight; Z68.27 Body mass index [BMI] 27.0-27.9, adult; Z79.899 Other long term (current) drug therapy; Z47.1 Aftercare following joint replacement surgery; Z96.652 Presence of left artificial knee joint | CPT/HCPCS: 99212 ==

== ENCOUNTER 2024-02-16 13:03 | Outpatient (AMB) | payer MEDICARE, SELFPAY ==
--- NOTE | 2024-02-16 13:28 | MHC.PC.OV ---
Vital Signs 02/16/24 13:30 Height 5 ft 3 in Weight 154 lb 8 oz BMI 27.4 BP 130/66 Blood Pressure Location Lt brachial Position Sitting Pulse 80 Pulse Source Pulse Oximeter Pulse Oximetry (%) 97 Oxygen Delivery Method Room Air Intake Visit Reasons: 3mth f/u Intake Note: Patient is here to follow up on Hypothyroidism, DDD, HTN and lab results. Hris Coordinator Required: No Infection Control Preventionist: Not Required per policy Accompanied by: Self / Same As Patient Allergies phenytoin [Dilantin] Allergy (Severe, Verified 02/16/24 13:57) Hives sertraline [SERTRALINE] Allergy (Severe, Verified 02/16/24 13:57) DROPPED SODIUM LEVEL, BP increase Sodium drop aspirin [ASPIRIN] Allergy (Intermediate, Verified 02/16/24 13:57) RISK OF BLEDING NSAIDS (Non-Steroidal Anti-Inflamma Allergy (Unknown, Verified 02/16/24 13:57) risk of bleeding Medication List - Last Reconciled 02/16/24 by Kelvin Pruett MD acetaminophen 650 mg (2 x 325 mg) PO Q6H PRN 30 days amlodipine 10 mg See Protocol PO DAILY anastrozole 1 mg PO DAILY 90 days aspirin 81 mg PO DAILY PRN atenolol 50 mg PO DAILY atorvastatin 80 mg PO BEDTIME docusate sodium 100 mg PO DAILY PRN 30 days irbesartan 300 mg PO DAILY levothyroxine 50 mcg PO DAILY@0600 lorazepam 0.5 mg PO BID PRN 30 days mirtazapine 15 mg PO BEDTIME 90 days oxcarbazepine 300 mg PO BID oxycodone-acetaminophen 5-325 mg (Percocet) 1 tab PO Q4-6H PRN sennosides (senna) 8.6 mg PO BEDTIME PRN 90 days walker Folding front wheeled walker Tobacco use date assessed: 02/16/24 Fall risk assessment: No Falls in past year Last assessed Fall Risk: 02/16/24 Dental Screening Dental Screen Date: 01/30/24 HPI 3mth f/u HPI Details Patient comes in today for her follow up visit States that she continues to feel very fatigued and worn down often Notes that she seems to be urinating a lot more often at night and this keeps her up for most of the night States that she tried to make up for her lack of sleep by trying to get some sleep in the afternoon but notes that it does not really help much as she still feels tired constantly throughout the day She denies any headaches or dizziness Denies any chest pains, no increased SOB No nausea/vomiting, no abdominal pain No change in bowel habits noted She had her follow up labs done a couple of weeks ago and had some more recent labs done to follow up on her sodium level about 3 days ago Relates that she was also seen by nephrology earlier this week and was advised to limit her free water intake and drink Gatorade or Powerade more often instead She would like to know if she can get her labs done more often than just once every 3 months to help keep track of her serum sodium level better [facility] Medical History Seasonal allergies Osteopenia Constipation Acquired hypothyroidism Overweight (BMI 25.0-29.9) Cataract Seizures Stroke (~2000) Ash ash disease (~2000) Urinary frequency Allergic rhinitis Degenerative disc disease, cervical Neck pain Depression Anxiety Insomnia Epilepsy Obesity (BMI 30-39.9) Osteoarthritis Benign essential hypertension Pure hypercholesterolemia Rib pain on right side Left shoulder pain Recurrent dry cough Pain of right scapula Right-sided thoracic back pain Surgical History History of left knee replacement H/O breast surgery Hx of colonoscopy History of kidney surgery Status post cervical disc replacement History of knee replacement procedure of right knee Hx of knee surgery Family History Father Chronic mental illness Mother Hypertension Other Mental health problem Social History Household Members: None Housing: House Are you a primary healthcare prof to a significant other at home: No Do you presently have visiting nurse or other home services: Yes Alcohol intake: current Alcohol intake frequency: holidays/special occasions only Alcohol type: wine Comment: not documented previous shift Patient Tobacco Use Status: Former Tobacco user Tobacco use type: Cigarette Years Smoked: 10 e-Cigarette/Vaping Use: Never Used Second Hand Smoke Exposure: No Advance Directives Date on File: 05/23/23 service: No Current occupational status: retired Cognitive needs: Yes (Walker) Hearing needs: No Vision needs: No Questionnaire PHQ-9 Over the last 2 weeks, how often have you been bothered by any of the following problems? 1. Little interest or pleasure in doing things: not at all 2. Feeling down, depressed, or hopeless: not at all 3. Trouble falling or staying asleep, or sleeping too much: not at all 4. Feeling tired or having little energy: not at all 5. Poor appetite or overeating: not at all 6. Feeling bad about yourself - or that you are a failure or have let yourself or your family down: not at all 7. Trouble concentrating on things, such as reading the newspaper or watching television: not at all 8. Moving or speaking so slowly that other people could have noticed. Or the opposite - being so fidgety or restless that you have been moving around a lot more than usual: not at all 9. Thoughts that you would be better off or of hurting yourself in some way: not at all Total score: 0 Depression Screening Interpretation: Negative Depression Screening Done: Yes 53851 - PHQ-9 Billing: Yes Source: Developed by Drs. Michoacano Hanson, Dayanna Car, Javier Spain and colleagues, with an educational zach from [employer]. Thrive Questionnaire Date Thrive assessed: 01/30/24 Are you currently unemployed and looking for a job?: No FEI-7 AMB Questionnaire FEI-7 Date FEI - 7 assessed: 01/30/24 Source: Developed by Drs. Michoacano Hanson, Dayanna Car, Javier Spain and colleagues, with an educational zach from [employer]. Review of Systems Const Denies chills, Reports fatigue, Denies fever(s) and Denies headache(s) ENT Denies dysphagia, Denies dizziness, Denies otalgia, Denies headache(s), Denies nasal discharge, Reports neck pain (chronic), Denies odynophagia and Denies sore throat Card Denies chest pain, Denies palpitations and Denies dyspnea Resp Denies chest congestion, Denies cough, Denies dyspnea and Denies wheezing GI Denies abdominal pain, Denies constipation, Denies dysphagia, Denies heartburn, Denies diarrhea, Denies nausea, Denies odynophagia and Denies vomiting Denies difficulty voiding, Reports nocturia, Denies dysuria and Denies urinary urgency Musc Reports back pain, Reports arthralgias (left knee, on and off), Denies joint swelling and Reports neck pain (chronic) Skin/Breast Denies rash Neuro Denies dizziness and Denies headache(s) Psych Reports anxiety Endo Reports fatigue and Denies palpitations Aller/Immun Denies wheezing Physical exam (Primary Care) Vital Signs: Last Vital Signs Pulse 80 02/16/24 13:30 BP 130/66 02/16/24 13:30 Pulse Ox 97 02/16/24 13:30 Oxygen Delivery Method Room Air 02/16/24 13:30 BMI result Body Mass Index 27.4 Tobacco/Smoking Status: Tobacco use Status Tobacco use date assessed 02/16/24 02/16/24 13:35 Patient Tobacco Use Status Former Tobacco user 02/16/24 13:35 Tobacco use type Cigarette 02/16/24 13:35 e-Cigarette/Vaping Use Never Used 02/16/24 13:35 Depression Screening Interpretation: Negative Thrive Assessment: Date of Thrive Assessment Date Thrive assessed 01/30/24 02/16/24 13:35 Const General: no acute distress and alert HENMT Throat: Yes posterior oropharynx normal and Yes tonsils normal (no TP congestion ) Neck Neck: Yes no lymphadenopathy and Yes tender Thyroid: Thyroid normal Resp Auscultation: clear to auscultation bilaterally, no rales and no wheezes Cardio Rate: regular rate Rhythm: regular rhythm Heart sounds: no murmurs GI Palpation (GI): Soft to palpation and nontender Auscultation: normal bowel sounds General: Yes no CVA tenderness Back/Spine/Pelvis Back: no CVA tenderness Cervical Spine: Cervical spine tenderness Thoracic/Lumbar Spine: lumbar spinal tenderness Skin Rashes: no rashes Extrem General: Yes no clubbing, cyanosis or edema Left lower extremity: knee Details: tenderness and crepitus; no swelling Results Reviewed Results Reviewed: Laboratory Tests 01/30/24 02/13/24 02/13/24 08:12 06:50 06:55 WBC 9.1 Hgb 10.7 L Hct 32.5 L Plt Count 371 Sodium 142 Potassium 4.4 Creatinine 0.76 Estimated GFR > 60 Fasting Glucose 114 H Osmolality 292 Calcium 10.1 D AST 19 ALT 21 Triglycerides 97 Cholesterol 135 LDL Cholesterol, Calc 70 HDL Cholesterol 46 Vitamin B12 337 25-OH Vitamin D Total 66.8 TSH 0.94 Free T4 0.75 Urine pH Ur Specific [place] Urine Protein Urine Glucose (UA) Urine Blood Urine Nitrite Ur Leukocyte Esterase 02/13/24 07:00 WBC Hgb Hct Plt Count Sodium Potassium Creatinine Estimated GFR Fasting Glucose Osmolality Calcium AST ALT Triglycerides Cholesterol LDL Cholesterol, Calc HDL Cholesterol Vitamin B12 25-OH Vitamin D Total TSH Free T4 Urine pH 7.0 Ur Specific [place] 1.015 Urine Protein Negative Urine Glucose (UA) Negative Urine Blood Negative Urine Nitrite Negative Ur Leukocyte Esterase Negative Assessment and Plan Assessment & Plan (1) Pure hypercholesterolemia: Code(s): E78.00 - Pure hypercholesterolemia, unspecified Plan: Results of her labs done a couple of weeks ago reviewed and discussed with patient Reinforced low-cholesterol diet Continue Atorvastatin 80 mg QD Will have patient recheck her labs and fasting lipids in 3 months for follow up (2) Benign essential hypertension: Code(s): I10 - Essential (primary) hypertension Plan: Goal is systolic BP of at least 140 to 150 mm or less Would normally advise low sodium diet but not in this patient with recurrent hyponatremia Continue Atenolol 50 mg QD, Amlodipine 10 mg QD and Irbesartan 300 mg QD She is reminded to continue monitoring her blood pressure regularly (3) Hyponatremia: Code(s): E87.1 - Hypo-osmolality and hyponatremia Plan: Her serum sodium level was at 128 on her follow up labs done a couple of weeks ago but this came back to normal when she had this rechecked 3 days ago - sodium level is now normal at 142 She was advised by nephrology recently that her recurrent hyponatremia is likely from decreased free water clearance due to non-osmotic ADH release and that her Oxcarbazepine may be contributing to this and that consideration may be made to try to find an alternative for this if corrective measures are not successful She has been instructed to limit her free water intake and substitute that with Gatorade or Powerade instead, which she has been doing, and to also stay on a regular salt diet Per request, will have her get her electrolyte levels rechecked weekly at least until she goes back to see nephrology for follow up early next month Follow up with nephrology as scheduled (4) PAC (premature atrial contraction): Code(s): I49.1 - Atrial premature depolarization Plan: Her EKG done back in April 2023 revealed sinus rhythm with Premature atrial complexes and minimal voltage criteria for LVH, which may be normal variant ( R in aVL ) Repeat 12-lead EKG done on 12/06/2023 showed (+) NSR with sinus arrhythmia, with no PACs noted currently (5) Osteoarthritis of left knee: Code(s): M17.12 - Unilateral primary osteoarthritis, left knee Qualifiers: Osteoarthritis type: primary Qualified Code(s): M17.12 - Unilateral primary osteoarthritis, left knee Plan: She appears to have had successful total left knee arthroplasty under general anesthesia with Dr. No on 12/06/2023 Right knee arthroplasty was done back in 2016 and her right knee is currently still doing well since her surgery Patient recently completed PT / OT for her knee Follow up with orthopedics as scheduled (6) Degenerative disc disease, cervical: Comment: S/P anterior fusion of C5-C7 in 2011 Code(s): M50.30 - Other cervical disc degeneration, unspecified cervical region Plan: Patient states that her neck pain has been manageable lately Cervical spine x-rays done in September 2020 revealed stable post-surgical changes and some mild degenerative changes in the cervical spine Will consider referring her again to physical therapy if her neck pain flares up (7) Breast cancer, left: Comment: 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; stage I ([id number]), grade 1, ER positive, IA positive, HER2 negative - diagnosed in January 2023 Code(s): C50.912 - Malignant neoplasm of unspecified site of left female breast Qualifiers: Breast location: unspecified site of breast Estrogen receptor status: positive Patient sex: female Qualified Code(s): C50.912 - Malignant neoplasm of unspecified site of left female breast; Z17.0 - Estrogen receptor positive status [ER+] Plan: She was diagnosed in January 2023 with invasive lobular carcinoma of the left breast after her routine mammogram revealed (+) calcifications and Bx done came back positive for breast cancer She has since undergone lumpectomy with negative margins She was referred to hematology/oncology and radiation oncology at [facility] (per request) and was started on Letrozole 1 mg QD, which she was advised to continue on for at least 5 years She was seen by radiation oncology at [facility] late last year for consultation as to whether she will require radiation therapy or not Her appointment was delayed when she developed RSV over the holidays and by the time she got to see Radiation Oncology, was advised that she was no longer in the window for radiation treatment to benefit her She will need to continue with annual mammography for continuing surveillance and to follow up with oncology as scheduled (8) Anemia: Code(s): D64.9 - Anemia, unspecified Qualifiers: Anemia type: unspecified type Qualified Code(s): D64.9 - Anemia, unspecified Plan: Mild; stable She has been consistently mildly anemic for the past couple of years but her RBC indices are normal H/H was at 10.7/32.5 on her labs done a couple of weeks ago Will continue to monitor her CBC regularly and consider referral to hematology for further evaluation if this progresses (9) Acquired hypothyroidism: Code(s): E03.9 - Hypothyroidism, unspecified Plan: She is advised that her TFTs were normal on her recent labs Continue Levothyroxine 50 mcg QD Will recheck her TFTs in a few weeks for follow up (10) Osteopenia: Code(s): M85.80 - Other specified disorders of bone density and structure, unspecified site Qualifiers: Osteopenia location: unspecified Qualified Code(s): M85.80 - Other specified disorders of bone density and structure, unspecified site Plan: Her recent BMD done at [facility] on 07/14/2023 revealed (+) osteopenia with a T-score of -1.8 at the lumbar spine, -0.8 the left hip and -0.9 at the left femoral neck She is advised to continue taking her vitamin D and calcium supplements daily Fall precautions reinforced (11) Epilepsy: Code(s): G40.909 - Epilepsy, unspecified, not intractable, without status epilepticus Qualifiers: Epilepsy type: unspecified Intractability: not intractable Status epilepticus: without status epilepticus Qualified Code(s): G40.909 - Epilepsy, unspecified, not intractable, without status epilepticus Plan: Stable with no recent recurrence Continue Trileptal 300 mg 1 tablet Q AM and 2 tablets Q PM 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 and was taking Aspirin daily for a while but she stopped taking this many years ago Follow up with neurology as scheduled (12) Constipation: Code(s): K59.00 - Constipation, unspecified Qualifiers: Constipation type: unspecified constipation type Qualified Code(s): K59.00 - Constipation, unspecified Plan: She is encouraged again on increased oral fluids and dietary fiber Continue Senna 8.6 mg Q HS PRN Have advised patient that her opioid Rx may also be contributing to her constipation (13) Overactive bladder: Code(s): N32.81 - Overactive bladder Plan: Have advised her that this may also be a reason for her recent nocturia and if she wants to, we can try her on some Rx for this later on (14) Insomnia: Code(s): G47.00 - Insomnia, unspecified Qualifiers: Insomnia type: unspecified Qualified Code(s): G47.00 - Insomnia, unspecified Plan: Sleep hygiene reinforced Continue Trazodone 100 mg 1.5 tablets (150 mg) Q HS PRN; she also takes Mirtazapine at bedtime and this may also be helping with her sleep (15) Anxiety: Code(s): F41.9 - Anxiety disorder, unspecified Plan: Continue Lorazepam 0.5 mg 1 to 2 tablets once a day at bedtime as needed (16) Depression: Code(s): F32.9 - Major depressive disorder, single episode, unspecified Qualifiers: Depression Type: unspecified Qualified Code(s): F32.9 - Major depressive disorder, single episode, unspecified Plan: Continue Mirtazapine 15 mg Q HS (17) Overweight (BMI 25.0-29.9): Code(s): E66.3 - Overweight Plan: Reinforced diet/exercise as tolerated/lose weight, although due to her age, comorbidites and physical condition/issues, her activity and exercise tolerance is very limited Plan Follow up in 3 months Orders: Orders Basic Metabolic Panel 03/05/24 E87.1 - Hypo-osmolality and hyponatremia Comprehensive [place]. Panel Fast 3 Months E78.00 - Pure hypercholesterolemia, unspecified Lipid Panel 3 Months E78.00 - Pure hypercholesterolemia, unspecified Vitamin B12 and Folate 3 Months E53.8 - Deficiency of other specified B group vitamins Basic Metabolic Panel 02/27/24 E87.1 - Hypo-osmolality and hyponatremia Basic Metabolic Panel 02/20/24 E87.1 - Hypo-osmolality and hyponatremia Complete Blood Count Auto Diff 3 Months D64.9 - Anemia, unspecified Free T4 (Free Thyroxine) 3 Months E03.9 - Hypothyroidism, unspecified Thyroid Stimulating Hormone 3 Months E03.9 - Hypothyroidism, unspecified Vitamin D 25-OH Total 3 Months E55.9 - Vitamin D deficiency, unspecified Coding Level of Care Code Est Pt Level 4 (65465) Complex EM visit Add On G2211 Diagnoses Pure hypercholesterolemia E78.00 Benign essential hypertension I10 Hyponatremia E87.1 PAC (premature atrial contraction) I49.1 Primary osteoarthritis of left knee M17.12 Osteoarthritis type: primary Degenerative disc disease, cervical M50.30 Malignant neoplasm of left breast in female, estrogen receptor positive, unspecified site of breast C50.912; Z17.0 Breast location: unspecified site of breast Estrogen receptor status: positive Patient sex: female Anemia, unspecified type D64.9 Anemia type: unspecified type Acquired hypothyroidism E03.9 Osteopenia, unspecified location M85.80 Osteopenia location: unspecified Nonintractable epilepsy without status epilepticus, unspecified epilepsy type G40.909 Epilepsy type: unspecified Intractability: not intractable Status epilepticus: without status epilepticus Constipation, unspecified constipation type K59.00 Constipation type: unspecified constipation type Overactive bladder N32.81 Insomnia, unspecified type G47.00 Insomnia type: unspecified Anxiety F41.9 Depression, unspecified depression type F32.9 Depression Type: unspecified Overweight (BMI 25.0-29.9) E66.3
[2024-02-16 13:30] VITALS: BP 130/66; PULSE 80; O2SAT 97; BMI 27.4
== END 2024-02-16 14:09 | disposition home or self-care (01) ==
PROVIDERS: PCP Internal Medicine; Visit Provider Internal Medicine
DX: E78.00 Pure hypercholesterolemia, unspecified (principal); C50.912 Malignant neoplasm of unspecified site of left female breast; G40.909 Epilepsy, unspecified, not intractable, without status epilepticus; I10 Essential (primary) hypertension; E87.1 Hypo-osmolality and hyponatremia; I49.1 Atrial premature depolarization; M17.12 Unilateral primary osteoarthritis, left knee; M50.30 Other cervical disc degeneration, unspecified cervical region; Z17.0 Estrogen receptor positive status [ER+]; D64.9 Anemia, unspecified; E03.9 Hypothyroidism, unspecified; M85.80 Other specified disorders of bone density and structure, unspecified site

== ENCOUNTER 2024-02-20 06:44 | Outpatient (REF) | payer MEDICARE, SELFPAY ==
[2024-02-20 10:48] LABS: Anion Gap 10 (12-20); Blood Urea Nitrogen 20 mg/dL (9-16); Calcium 9.7 mg/dL (8.4-10.2); Carbon Dioxide 27 mmol/L (22-29); Chloride 107 mmol/L (96-108); Estimated Glomerular Filt Rate > 60; Glucose Random 114 mg/dL (60-115); Potassium 4.1 mmol/L (3.3-5.1); Sodium 140 mmol/L (135-145)
== END 2024-02-20 06:45 | disposition home or self-care (01) ==
LOC: HO.HMGCLDS 06:44
PROVIDERS: PCP Internal Medicine; Visit Provider Internal Medicine
DX: E87.1 Hypo-osmolality and hyponatremia (principal)
CPT/HCPCS: 36415; 80048

== ENCOUNTER 2024-02-26 14:59 | Outpatient (REF) | payer MEDICARE, SELFPAY ==
--- NOTE | ~2024-02-26 | MM_ITS ---
EXAMINATION: MM DIAGNOSTIC DIGITAL BREAST TOMOSYNTHESIS, BILATERAL CLINICAL INFORMATION: Postop protocol: year 1 left breast lumpectomy and conservation therapy for superomedial invasive carcinoma. COMPARISON: Mammography: 02/23/2023 left RFID localization. Left breast diagnostic mammography with left ultrasound-guided core biopsy 02/13/2023. Diagnostic left mammography 02/09/2023 with diagnostic left ultrasound. Screening mammography 01/26/2023, 01/18/2022, 01/06/2021, and dating back to 2015. TECHNIQUE: Digital breast tomosynthesis is performed in both the craniocaudal and mediolateral oblique views along with computer-aided detection (CAD). Synthesized 2D images are generated from the tomosynthesis. In addition, 2-D spot magnification left CC and ML views x2 were obtained of the lumpectomy site, as well as a full field right 3-D cleavage view. FINDINGS: There are scattered areas of fibroglandular density (ACR BI-RADS breast composition Category b). Posttherapeutic changes left breast superior medial aspect, anterior one third, with expected postoperative scarring. No definite evidence of recurrence of disease. There are benign dystrophic, secretory, vascular calcifications in both breasts. There is bilateral duct ectasia in the anterior bilateral breasts. Loosely grouped in the central slightly lateral mid left breast are stable from multiple priors. No suspicious masses, developing grouped suspicious calcifications, or developing regions of architectural distortion in either breast. No axillary abnormalities. Overall parenchymal pattern right breast is stable from priors. MM/MM tomosynthesis diagnostic BI IMPRESSION: -There are no findings suspicious for malignancy in either breast. -There are post-therapeutic changes left breast upper medial aspect anterior one third. -There are stable benign findings as discussed. -Recommend continuing yearly postop protocol in one year. ASSESSMENT: BI-RADS BI-RADS 2 - Benign Findings RECOMMENDATION: 1 year F/U Results were provided to the patient at time of visit by the technologist. This patient's information was entered into a reminder system with a target due date for their next mammogram. Electronically signed by: Stef Mtz MD 02/26/2024 04:10 PM EDT
== END 2024-02-26 15:00 | disposition home or self-care (01) ==
LOC: HO.MAMMO 14:59
PROVIDERS: PCP Internal Medicine; Visit Provider Surgery
DX: Z85.3 Personal history of malignant neoplasm of breast (principal)
CPT/HCPCS: 77062; 77066

== ENCOUNTER → 2024-02-26 15:01 | Outpatient (BNV) | payer MEDICARE, SELFPAY | PROVIDERS: PCP Internal Medicine; Visit Provider Radiology Diagnostic Radiology | DX: C50.912 Malignant neoplasm of unspecified site of left female breast (principal) | CPT/HCPCS: 77066; G0279 ==

== ENCOUNTER 2024-03-05 06:36 | Outpatient (REF) | payer MEDICARE, SELFPAY ==
[2024-03-05 10:22] LABS: Anion Gap 12 (12-20); Blood Urea Nitrogen 15 mg/dL (9-16); Calcium 9.6 mg/dL (8.4-10.2); Carbon Dioxide 28 mmol/L (22-29); Chloride 105 mmol/L (96-108); Estimated Glomerular Filt Rate > 60; Glucose Random 109 mg/dL (60-115); Potassium 4.1 mmol/L (3.3-5.1); Sodium 141 mmol/L (135-145)
== END 2024-03-05 06:37 | disposition home or self-care (01) ==
LOC: HO.HMGCLDS 06:36
PROVIDERS: Internal Medicine Hypertension Specialist; PCP Internal Medicine; Visit Provider Internal Medicine
DX: E87.1 Hypo-osmolality and hyponatremia (principal)
CPT/HCPCS: 36415; 80048

== ENCOUNTER 2024-03-22 15:18 | Outpatient (AMB) | payer MEDICARE, SELFPAY ==
[2024-03-22 15:21] VITALS: BP 140/62; PULSE 76; O2SAT 96; BMI 27.8
--- NOTE | 2024-03-22 15:21 | HO.NEPHOV_ITS ---
Vital Signs 03/22/24 15:21 03/22/24 15:29 Height 5 ft 3 in Weight 157 lb BMI 27.8 BP 140/62 H 120/60 Blood Pressure Location Lt brachial Lt brachial Position Sitting Sitting Pulse 76 Pulse Source Pulse Oximeter Pulse Oximetry (%) 96 Oxygen Delivery Method Room Air Intake Visit Reasons: Acute hyponatremia/ Conf Cookie Breaker Required: No Accompanied by: Self / Same As Patient Allergies phenytoin [Dilantin] Allergy (Severe, Verified 03/22/24 15:23) Hives sertraline [SERTRALINE] Allergy (Severe, Verified 03/22/24 15:23) DROPPED SODIUM LEVEL, BP increase Sodium drop aspirin [ASPIRIN] Allergy (Intermediate, Verified 03/22/24 15:23) RISK OF BLEDING NSAIDS (Non-Steroidal Anti-Inflamma Allergy (Unknown, Verified 03/22/24 15:23) risk of bleeding Medication List - Last Reconciled 03/22/24 by Saurav Ariza MD acetaminophen 650 mg (2 x 325 mg) PO Q6H PRN 30 days amlodipine 10 mg See Protocol PO DAILY 90 days anastrozole 1 mg PO DAILY 90 days aspirin 81 mg PO DAILY PRN atenolol 50 mg PO DAILY atorvastatin 80 mg PO BEDTIME docusate sodium 100 mg PO DAILY PRN 30 days irbesartan 300 mg PO DAILY levothyroxine 50 mcg PO DAILY@0600 lorazepam 0.5 mg PO BID PRN 30 days mirtazapine 15 mg PO BEDTIME 90 days oxcarbazepine Take 1 tablet in the morning and 2 tablets in the evening orally; oxycodone-acetaminophen 5-325 mg (Percocet) 1 tab PO Q4-6H PRN sennosides (senna) 8.6 mg PO BEDTIME PRN 90 days walker Folding front wheeled walker HPI Comments Details: Jennie is a pleasant 83 year year old woman with a history of moyamoya disease. She has history of seizures and she has been on Trileptal. She was recently hospitalized at [facility] and was found to hyponatremia. Trileptal was discontinued and she was placed on Keppra apparently she did not tolerate Keppra and she has been placed back on oxcarbazepine 300 mg b.i.d.. She had a repeat admission to [facility] for hyponatremia. Extensive workup was done. She was unable to tolerate urea powder due to the taste. She is drinking about 4 glasses of water at home. She continues have fatigue. Recent thyroid function was normal cortisol was normal. Urine osmolality was 295 with a urine sodium of 96 back in December of 2023. [facility] Medical History Seasonal allergies Osteopenia Constipation Acquired hypothyroidism Overweight (BMI 25.0-29.9) Cataract Seizures Stroke (~2000) Ash ash disease (~2000) Urinary frequency Allergic rhinitis Degenerative disc disease, cervical Neck pain Depression Anxiety Insomnia Epilepsy Obesity (BMI 30-39.9) Osteoarthritis Benign essential hypertension Pure hypercholesterolemia Rib pain on right side Left shoulder pain Recurrent dry cough Pain of right scapula Right-sided thoracic back pain Surgical History History of left knee replacement H/O breast surgery Hx of colonoscopy History of kidney surgery Status post cervical disc replacement History of knee replacement procedure of right knee Hx of knee surgery Family History Father Chronic mental illness Mother Hypertension Other Mental health problem Social History Household Members: None Housing: House Are you a primary healthcare business analyst to a significant other at home: No Do you presently have visiting nurse or other home services: Yes Alcohol intake: current Alcohol intake frequency: holidays/special occasions only Alcohol type: wine Comment: not documented previous shift Patient Tobacco Use Status: Former Tobacco user Tobacco use type: Cigarette Years Smoked: 10 e-Cigarette/Vaping Use: Never Used Second Hand Smoke Exposure: No Advance Directives Date on File: 05/23/23 service: No Current occupational status: retired Cognitive needs: Yes (Walker) Hearing needs: No Vision needs: No Review of Systems Neuro Denies confusion Psych Denies confusion Physical Exam Vital Signs: Last Vital Signs Pulse 76 03/22/24 15:21 BP 140/62 H 03/22/24 15:21 Pulse Ox 96 03/22/24 15:21 Oxygen Delivery Method Room Air 03/22/24 15:21 BMI result Body Mass Index 27.8 Const General: No confusion Orientation/consciousness: No confusion Eyes General: appearance normal, both eyes and all related structures Visual Lomeli: normal visual lomeli by confrontation Neck Neck: Yes supple and Yes no JVD Resp Effort & Inspection: normal respiratory effort and respiratory effort not decreased Auscultation: rhonchi Cardio Palpation: no palpable S3 and no palpable S4 Heart sounds: no rubs GI Inspection: Yes normal to inspection Palpation (GI): Soft to palpation Percussion: Yes normal to percussion Auscultation: normal bowel sounds General: Yes no CVA tenderness Back/Spine/Pelvis Back: no CVA tenderness Skin General skin exam: no petechiae and no purpura Neuro General: No confusion Extrem General: No clubbing and No edema Results Reviewed Nephrology Results: Sodium 141 mmol/L (135-145) 03/05/24 Potassium 4.1 mmol/L (3.3-5.1) 03/05/24 Chloride 105 mmol/L (96-108) 03/05/24 Carbon Dioxide 28 mmol/L (22-29) 03/05/24 BUN 15 mg/dL (9-16) 03/05/24 Creatinine 0.80 mg/dL (0.5-1.4) 03/05/24 Calcium 9.6 mg/dL (8.4-10.2) 03/05/24 Urine Protein Negative mg/dL (Neg-Trace) 02/13/24 Assessment & Plan Assessment & Plan (1) Acute hyponatremia: Code(s): E87.1 - Hypo-osmolality and hyponatremia Category: Medical (2) HTN (hypertension): Code(s): I10 - Essential (primary) hypertension Category: Medical Plan Elderly woman with hyponatremia. Jennie most likely has decreased free water clearance due to non osmotic ADH release. Oxcarbazepine could be playing a role in decreasing free water clearance. Recent thyroid function was normal Cortisol level was normal. BP is well controlled Recommendation limit free water intake. Encouraged her to drink Gatorade or Powerade instead. Keep her on regular salt diet. I will hold off on adding sodium chloride tablets due to underlying hypertension. She is unable to tolerate urea powder and no indication at thistime Goal is to maintain serum sodium more than 133 millimoles. If the serum sodium persistently stays less than 133 we should consider switching oxcarbazepine to a different agent. I have answered all her questions Orders: Orders Basic Metabolic Panel 6 Months E87.1 - Hypo-osmolality and hyponatremia Coding Level of Care Code Est Pt Level 4 (92537) Diagnoses Acute hyponatremia E87.1 HTN (hypertension) I10
[2024-03-22 15:29] VITALS: BP 120/60
== END 2024-03-22 15:33 | disposition home or self-care (01) ==
PROVIDERS: PCP Internal Medicine; Visit Provider Internal Medicine Hypertension Specialist
DX: E87.1 Hypo-osmolality and hyponatremia (principal); I10 Essential (primary) hypertension
CPT/HCPCS: 99214

== ENCOUNTER → 2024-03-22 15:18 | Outpatient (BNVA) | payer MEDICARE, SELFPAY | PROVIDERS: PCP Internal Medicine; Visit Provider Internal Medicine Hypertension Specialist | DX: E87.1 Hypo-osmolality and hyponatremia (principal); I10 Essential (primary) hypertension | CPT/HCPCS: 99212 ==

== ENCOUNTER 2024-03-29 11:06 | Outpatient (AMB) | payer MEDICARE, SELFPAY ==
[2024-03-29 11:08] VITALS: BMI 27.8
--- NOTE | 2024-03-29 11:08 | A.OFFVIS_ITS ---
Vital Signs 03/29/24 11:08 Height 5 ft 3 in Weight 157 lb BMI 27.8 Intake Visit Reasons: OV: Left TKA w/NE 12/06/23 Intake Note: Jennie is an 83 year old female who presents today for a post operative appointment s/p Left TKA 12/06/23 Allergies phenytoin [Dilantin] Allergy (Severe, Verified 03/22/24 15:23) Hives sertraline [SERTRALINE] Allergy (Severe, Verified 03/22/24 15:23) DROPPED SODIUM LEVEL, BP increase Sodium drop aspirin [ASPIRIN] Allergy (Intermediate, Verified 03/22/24 15:23) RISK OF BLEDING NSAIDS (Non-Steroidal Anti-Inflamma Allergy (Unknown, Verified 03/22/24 15:23) risk of bleeding HPI HPI OV: Left TKA w/NE 12/06/23: Details: Jennie is 3-1/2 months status post left knee replacement. Her motion is good but she still complains of pain with stairs and occasionally she has pain with standing from a seated position. She feels that this has been more difficult than her contralateral knee. [facility] Medical History Seasonal allergies Osteopenia Constipation Acquired hypothyroidism Overweight (BMI 25.0-29.9) Cataract Seizures Stroke (~2000) Ash ash disease (~2000) Urinary frequency Allergic rhinitis Degenerative disc disease, cervical Neck pain Depression Anxiety Insomnia Epilepsy Obesity (BMI 30-39.9) Osteoarthritis Benign essential hypertension Pure hypercholesterolemia Rib pain on right side Left shoulder pain Recurrent dry cough Pain of right scapula Right-sided thoracic back pain Surgical History History of left knee replacement H/O breast surgery Hx of colonoscopy History of kidney surgery Status post cervical disc replacement History of knee replacement procedure of right knee Hx of knee surgery Family History Father Chronic mental illness Mother Hypertension Other Mental health problem Social History Household Members: None Housing: House Are you a primary healthcare insurance sales agent to a significant other at home: No Do you presently have visiting nurse or other home services: Yes Alcohol intake: current Alcohol intake frequency: holidays/special occasions only Alcohol type: wine Comment: not documented previous shift Patient Tobacco Use Status: Former Tobacco user Tobacco use type: Cigarette Years Smoked: 10 e-Cigarette/Vaping Use: Never Used Second Hand Smoke Exposure: No Advance Directives Date on File: 05/23/23 service: No Current occupational status: retired Cognitive needs: Yes (Walker) Hearing needs: No Vision needs: No Physical Exam Vital Signs: BMI result Body Mass Index 27.8 Extrem Other: Incision clean dry and intact Mild tenderness to palpation posteromedially Mild effusion 5-130 degrees of motion Assessment & Plan Assessment & Plan (1) Status post total left knee replacement: Code(s): Z96.652 - Presence of left artificial knee joint Category: Surgical Plan: Celiac is 3 and half months status post left knee replacement. Objectively speaking she is doing well and improving and walking comfortably but continues to complain various things feeling with med she continue her exercises and can follow up in 3 months. Coding Level of Care Code Est Pt Level 3 (17589) Diagnoses Status post total left knee replacement Z96.652
== END 2024-03-29 11:30 | disposition home or self-care (01) ==
LOC: HO.HOS 11:07
PROVIDERS: PCP Internal Medicine; Visit Provider Orthopaedic Surgery
DX: Z47.1 Aftercare following joint replacement surgery (principal); Z96.652 Presence of left artificial knee joint
CPT/HCPCS: 99213

== ENCOUNTER → 2024-03-29 11:06 | Outpatient (BNVA) | payer MEDICARE, SELFPAY | PROVIDERS: PCP Internal Medicine; Visit Provider Orthopaedic Surgery | DX: Z96.652 Presence of left artificial knee joint (principal) | CPT/HCPCS: 99212 ==

== ENCOUNTER 2024-04-07 12:54 | Observation (INO) | payer MEDICARE, SELFPAY ==
[2024-04-07] VITALS (10 sets, daily range): BP systolic 129–164; BP diastolic 54–73; PULSE 68–82; RESP 16–21; TEMP 36.6; O2SAT 97–100; BMI 28.8
--- NOTE | ~2024-04-07 | CT_ITS ---
EXAMINATION: CT HEAD WITHOUT CONTRAST CLINICAL INFORMATION: Syncope COMPARISON: None available. TECHNIQUE: Contiguous axial imaging was performed from the skull base to vertex without intravenous administration of contrast. This CT examination was performed using dose optimization techniques as appropriate, variously including the following: *Automated exposure control *Adjustment of mA and/or kV according to patient size (this includes techniques or standardized protocols for targeted exams where dose is matched to indication/reason for exam; i.e. extremities or head) *Use of iterative reconstruction technique DLP: 589 mGy-cm FINDINGS: There is underlying atrophy. Periventricular white matter changes are noted. Old right basal ganglia infarct. No evolving infarct, mass lesion, mass effect or midline shift. No hemorrhage or extra-axial fluid collections. Vascular calcifications are seen. Lens extractions have been performed. Right maxillary and right sphenoid sinus coastal thickening. Nasal turbinates are mildly thickened and nasal mucosal thickening identified. kamila structures are intact. Soft tissues are unremarkable. CT/CT head/brain wo IV con IMPRESSION: 1. No acute intracranial pathology. 2. Atrophy, small vessel ischemic changes and old right basal ganglia infarct. Electronically signed by: Monica Grimes MD 04/07/2024 03:13 PM [facility]
--- NOTE | ~2024-04-07 | XR_ITS ---
EXAMINATION: XR CHEST CLINICAL INFORMATION: Syncope COMPARISON: None available. TECHNIQUE: Frontal view of the chest was obtained. FINDINGS: No significant abnormality is noted involving the heart, lungs, mediastinum, bony thorax or soft tissues. XR/XR chest 1V IMPRESSION: No acute cardiopulmonary process. Electronically signed by: Yohannes Vilchis DO 04/07/2024 03:53 PM [facility]
--- NOTE | 2024-04-07 13:11 | ECG_ITS ---
Test Reason : SYNCOPE Blood Pressure : / mmHG Vent. Rate : 066 BPM Atrial Rate : 066 BPM P-R Int : 186 ms QRS Dur : 084 ms QT Int : 406 ms P-R-T Axes : 074 -02 017 degrees QTc Int : 425 ms Normal sinus rhythm Normal ECG When compared with ECG of 09-JAN-2024 20:15, Aberrant conduction is no longer Present Referred By: Nell Vasquez Electronically Signed By:Jose Gonzalez
--- NOTE | 2024-04-07 13:12 | ED.SYNCOPE ---
HPI - Syncope General Chief Complaint: Syncope Stated Complaint: CHEST PAIN NAUSEA VOMITING Time Seen by Provider: 04/07/24 12:56 Source: patient and EMS Mode of arrival: EMS Limitations: no limitations History of Present Illness ED Provider: DR. Vasquez HPI narrative: 83-year-old female with pertinent history of seizure disorder, hypertension, history of hemorrhagic CVA in 2000, hypothyroidism, history of breast cancer status post lumpectomy in 2022, moyamoya disease patient was brought in by ambulance for evaluation after having a witnessed syncopal episode by her family, patient was going out with her family when she started to complain of feeling tired, the patient passed out in front of her family and became unresponsive for few minutes patient do not recall the events the next thing she remember when ambulance is taking her to the hospital. Patient is just feeling tired and fatigued otherwise no chest pain or shortness of breath. Related Data Home Medications ?Medication ?Instructions ?Recorded ?Confirmed oxycodone-acetaminophen 5 mg-325 1 tab PO Q4-6H PRN Pain 11/23/23 03/22/24 mg tablet (Percocet) atorvastatin 80 mg tablet 80 mg PO BEDTIME 12/06/23 03/22/24 aspirin 81 mg tablet,delayed 81 mg PO DAILY PRN 02/12/24 03/22/24 release Previous Rx's ?Medication ?Instructions ?Recorded sennosides 8.6 mg capsule (senna) 8.6 mg PO BEDTIME PRN constipation 04/26/23 90 days #90 caps walker #1 ea 10/31/23 acetaminophen 325 mg tablet 650 mg (2 x 325 mg) PO Q6H PRN 12/09/23 Pain, Mild (Pain Scale 1-3), fever or headache 30 days #240 tabs docusate sodium 100 mg capsule 100 mg PO DAILY PRN Constipation 12/09/23 30 days #30 caps atenolol 50 mg tablet 50 mg PO DAILY #90 tabs 12/11/23 mirtazapine 15 mg tablet 15 mg PO BEDTIME 90 days #90 tabs 01/02/24 irbesartan 300 mg tablet 300 mg PO DAILY #90 tabs 01/31/24 levothyroxine 50 mcg tablet 50 mcg PO DAILY@0600 #90 tabs 02/28/24 lorazepam 0.5 mg tablet 0.5 mg PO BID PRN anxiety 30 days 03/18/24 #60 tabs oxcarbazepine 300 mg tablet See Rx Instructions PO .COMPLEX 03/20/24 #270 tabs amlodipine 10 mg tablet 10 mg PO DAILY 90 days #90 tabs 03/21/24 anastrozole 1 mg tablet 1 mg PO DAILY #90 tabs 03/24/24 trazodone 100 mg tablet 100 mg PO BEDTIME PRN sleep 90 04/02/24 days #90 tabs Allergies Allergy/AdvReac Type Severity Reaction Status Date / Time phenytoin [Dilantin] Allergy Severe Hives Verified 04/07/24 13:08 sertraline [SERTRALINE] Allergy Severe DROPPED Verified 04/07/24 13:08 SODIUM LEVEL, BP increase Sodium drop aspirin [ASPIRIN] Allergy Intermediate RISK OF Verified 04/07/24 13:08 BLEDING NSAIDS (Non-Steroidal Allergy Unknown risk of Verified 04/07/24 13:08 Anti-Inflamma bleeding Review of Systems Review of Systems: All other systems are reviewed and are negative Constitutional: Reports as per HPI and Reports no additional constitutional complaints Eyes: Reports as per HPI and Reports no additional eye complaints Reports system reviewed and no additional complaints, except as documented Cardiovascular: Reports as per HPI and Reports no additional cardiovascular complaints Respiratory: Reports as per HPI and Reports no additional respiratory complaints Gastrointestinal: Reports as per HPI and Reports no additional gastrointestinal complaints Genitourinary: Reports no additional female genitourinary complaints Musculoskeletal: Reports no additional musculoskeletal complaints Skin/Breast: Reports system reviewed and no additional complaints, except as docu Psychiatric: Reports no additional psychiatric complaints Endocrine: Reports no additional endocrine complaints Hematologic/Lymphatic: Reports no additional hematologic/lymphatic complaints Allergic/Immunologic: Reports no additional allergic/immunologic complaints Reports system reviewed and no additional complaints, except as documented and Reports Abnormal speech present [facility] Past Medical History Medical History Seasonal allergies Osteopenia Constipation Acquired hypothyroidism Overweight (BMI 25.0-29.9) Cataract Seizures Stroke (~2000) Ash ash disease (~2000) Urinary frequency Allergic rhinitis Degenerative disc disease, cervical Neck pain Depression Anxiety Insomnia Epilepsy Obesity (BMI 30-39.9) Osteoarthritis Benign essential hypertension Pure hypercholesterolemia Rib pain on right side Left shoulder pain Recurrent dry cough Pain of right scapula Right-sided thoracic back pain Surgical History History of left knee replacement H/O breast surgery Hx of colonoscopy History of kidney surgery Status post cervical disc replacement History of knee replacement procedure of right knee Hx of knee surgery Family History Family History Father Chronic mental illness Mother Hypertension Other Mental health problem Social History Social History Household Members: None Housing: House Are you a primary animal care service worker to a significant other at home: No Do you presently have visiting nurse or other home services: Yes Alcohol intake: current Alcohol intake frequency: holidays/special occasions only Alcohol type: hard liquor Comment: not documented previous shift Patient Tobacco Use Status: Former Tobacco user Tobacco use type: Cigarette Years Smoked: 10 Smoked in Last 30 Days: No e-Cigarette/Vaping Use: Never Used Second Hand Smoke Exposure: No Use of substances other than those prescribed or required for medical reasons: No Advance Directives: Yes Advance Directives Information Provided: Yes Advance Directives on File: No Advance Directives Date on File: 05/23/23 Do you have a plan to hurt others: No Plan service: No Current occupational status: retired Cognitive needs: Yes (Walker) Hearing needs: No Vision needs: No Physical Exam Vital Signs: Vital Signs: Last Vital Signs Temp 97.9 F 04/07/24 13:13 Pulse 82 04/07/24 15:41 Resp 21 H 04/07/24 14:13 BP 157/66 H 04/07/24 15:41 Pulse Ox 98 04/07/24 14:13 O2 Del Method Room Air 04/07/24 14:13 BMI result Body Mass Index 28.8 Vital signs have been reviewed and appear to be correct. Blood pressure elevated. Heart rate normal. Respiratory rate normal. Temperature normal. Oxygen saturation normal. Appearance: Alert. Oriented X3. No acute distress. Head: Normal external exam. Normocephalic. Atraumatic. No Marie signs noted. No raccoon eyes noted Eyes: PERRLA. EOMI. Conjunctiva and sclera normal. Eyelids normal. ENT: TM's Normal. Pharynx normal. Uvula midline. Moist mucous membranes. No trismus noted. No drooling noted. No muffled voice noted. Neck: Normal inspection. Neck supple. FROM. No adenopathy. Thyroid Normal. No meningeal signs. No neck mass noted. CVS: Normal heart rate and rhythm. Heart sound normal. No murmurs noted. Pulses normal throughout. Respiratory: No respiratory distress. Painless inspiration. Breath sounds normal. No wheezes/rales/rhonchi noted. Chest nontender. No accessory muscle usage noted or decreased air movement noted. Abdomen: Soft and nontender. Bowel sounds normal in all 4 quadrants. No distention noted. No organomegaly noted. No visible injury noted. Back: No CVA tenderness. Full range of motion noted. Skin: Skin warm and dry. Normal skin color. Normal skin turgor. No rashes/lesions/lacerations noted. Extremities: No lower extremity edema. Extremities exhibit normal range of motion. Extremities nontender. Neuro: Oriented X 3. Cranial nerve exam: II-XII are grossly intact No motor deficit. No sensory deficit. Reflexes normal. Course Reevaluation(s) Reevaluation #1: 83-year-old female presented after had a witnessed syncopal episode and unresponsiveness by her family, patient has only symptoms is feeling tired and fatigued no chest pain, no shortness of breath, labs are unremarkable, normal neurological exam, head CT is unremarkable. Normal serum sodium level. Orthostatic vital sign are unremarkable. Time: 15:17 Medical Decision Making Differential Diagnosis Differential Diagnoses: The differential diagnosis associated with the presentation includes ( ACS, dehydration, hyponatremia, electrolyte derangement, intracranial pathology, severe anemia, pneumonia, pneumothorax, pleural effusion.) Admission/Observation Consideration of admission/observation: Escalation of care including admission/observation considered Consult Healthcare Provider Management of the patient was discussed with: Hospitalist ( Zulema Wood) Lab Data MDM Lab Attestation statement: I reviewed the patient's lab results. 04/07/24 13:27 04/07/24 13:27 Labs: Lab Results 04/07/24 Range/Units 13:27 WBC 8.4 (4.8-10.8) X10*3/uL RBC 3.64 L (4.20-5.50) X10*6/uL Hgb 10.9 L (12.0-16.0) g/dl Hct 32.6 L (37.0-47.0) % MCV 89.6 (80.0-98.0) fL MCH 29.9 (27.0-33.0) pg MCHC 33.4 (31.0-35.0) g/dl RDW 15.1 (11.0-16.0) % Plt Count 232 D (160-400) X10*3/uL MPV 9.6 (9.4-12.3) fL Immature Gran % (Auto) 0.6 H (0.0-0.4) % Neut % (Auto) 75.7 H (45-73) % Lymph % (Auto) 15.8 L (20-40) % Stephens % (Auto) 6.5 (2-11) % Eos % (Auto) 1.2 (0-4) % Baso % (Auto) 0.2 (0-2) % Lymph # (Auto) 1.3 (1.2-4.9) X10*3/uL Stephens # (Auto) 0.6 (0.1-1.2) X10*3/uL Eos # (Auto) 0.1 (0.0-0.4) X10*3/uL Baso # (Auto) 0.0 (0.0-0.2) X10*3/uL Abs Immat Gran (auto) 0.05 H (0.00-0.03) X10*3/uL Absolute Neuts (auto) 6.4 (2.0-8.3) x10*3/uL Absolute Nucleated RBC 0.000 (0.0-0.012) X10*3/uL Nucleated RBC % (auto) 0.0 (0.0-0.2) /100WBC PT 11.0 (10.9-12.4) SEC INR 0.9 (0.9-1.1) Sodium 143 (135-145) mmol/L Potassium 4.3 (3.3-5.1) mmol/L Chloride 108 (96-108) mmol/L Carbon Dioxide 24 (22-29) mmol/L Anion Gap 15 (12-20) BUN 16 (9-16) mg/dL Creatinine 0.82 (0.5-1.4) mg/dL Estim Creat Clear Calc 51.8 Estimated GFR > 60 Random Glucose 117 H (60-115) mg/dL Calcium 9.9 (8.4-10.2) mg/dL Total Bilirubin 0.3 (0.0-1.0) mg/dL Direct Bilirubin < 0.1 (0.0-0.5) mg/dL AST 24 (5-31) U/L ALT 20 (0-31) U/L Alkaline Phosphatase 107 (39-117) U/L Troponin I High Sens 2.9 (<3.5-17.0) ng/L B-Natriuretic Peptide 126 H (<100) pg/mL Total Protein 7.2 (6.5-8.0) g/dL Albumin 4.1 (3.5-5.0) g/dL Lipase 27 (8-78) U/L Influenza Type A (PCR) NEGATIVE (Negative) Influenza Type B (PCR) NEGATIVE (Negative) RSV RNA Qual (PCR) NEGATIVE (Negative) SARS-CoV-2 RNA (RT-PCR) NEGATIVE (Negative) Independent Interpretation I performed an independent interpretation of an: CT Scan ( head: No acute intracranial pathology.) Radiology Impression Discussion of test interpretation with radiology: I have reviewed the radiologist's reading. Discharge Plan Discharge Clinical Impression: Syncope Patient Disposition: Admitted As Inpatient Print Language: Panamanian
[2024-04-07 13:32] LABS: MANUAL DIFF FLAG NO
[2024-04-07 13:33] LABS: Basophils Percent Auto 0.2 % (0-2); Eosinophils Absolute Auto 0.1 X10*3/uL (0.0-0.4); Eosinophils Percent Auto 1.2 % (0-4); Hematocrit 32.6 % (37.0-47.0); Hemoglobin 10.9 g/dl (12.0-16.0); Imm Gran Abs Auto 0.05 X10*3/uL (0.00-0.03); Imm Gran Pct Auto 0.6 % (0.0-0.4); Lymphocytes Absolute Auto 1.3 X10*3/uL (1.2-4.9); Lymphocytes Percent Auto 15.8 % (20-40); Mean Corpuscular HGB Conc 33.4 g/dl (31.0-35.0); Mean Corpuscular Hemoglobin 29.9 pg (27.0-33.0); Mean Corpuscular Volume 89.6 fL (80.0-98.0); Mean Platelet Volume 9.6 fL (9.4-12.3); Monocytes Absolute Auto 0.6 X10*3/uL (0.1-1.2); Monocytes Percent Auto 6.5 % (2-11); Neutrophils Absolute Auto 6.4 x10*3/uL (2.0-8.3); Neutrophils Percent Auto 75.7 % (45-73); Platelet Count 232 X10*3/uL (160-400); Red Blood Count 3.64 X10*6/uL (4.20-5.50); Red Cell Distribution Width 15.1 % (11.0-16.0); White Blood Count 8.4 X10*3/uL (4.8-10.8)
[2024-04-07 13:40] LABS: INTERNATIONAL NORM RATIO 0.9 (0.9-1.1)
[2024-04-07 13:50] LABS: Alanine Aminotransferase 20 U/L (0-31); Albumin Level 4.1 g/dL (3.5-5.0); Alkaline Phosphatase 107 U/L (39-117); Anion Gap 15 (12-20); Aspartate Amino Transferase 24 U/L (5-31); Bilirubin Direct < 0.1 mg/dL (0.0-0.5); Bilirubin Total 0.3 mg/dL (0.0-1.0); Blood Urea Nitrogen 16 mg/dL (9-16); Calcium 9.9 mg/dL (8.4-10.2); Carbon Dioxide 24 mmol/L (22-29); Chloride 108 mmol/L (96-108); Creatinine Clr Calc Pharmacy 51.8; Estimated Glomerular Filt Rate > 60; Glucose Random 117 mg/dL (60-115); Lipase 27 U/L (8-78); Potassium 4.3 mmol/L (3.3-5.1); Sodium 143 mmol/L (135-145); Total Protein 7.2 g/dL (6.5-8.0)
[2024-04-07 13:55] LABS: B Type Natriuretic Peptide 126 pg/mL (<100)
[2024-04-07 13:56] LABS: Troponin-I High Sensitivity 2.9 ng/L (<3.5-17.0)
--- NOTE | 2024-04-07 15:26 | PM.IMHP ---
History of Present Illness Date of Service: 05/01/24 Chief Complaint: syncope 83-year-old female with pertinent history of seizure disorder, hypertension, moyamoya disease, history of hemorrhagic CVA in 2000, hypothyroidism, history of breast cancer status post lumpectomy in 2022. She presents with syncope. Acording to her son who was with her. Patient was complaining of feeling tired and felt as if she was going to pass out, on the way out she became unreponive at the back of the seat and son drove her back to the house about 10 minutes away. In the driveway, she was taking out of the car and was making gurgly breathing noise and son did 3 chest compression which woke her up but then again felt back to sleep until EMS arrived and then spontaneously woke up. Her pulse was not checked until EMS checked, so triage documentation stating she lost pulse is not true. No obvious seizure activity such urinary or stool incontinence, prior seizures have been characterized by shakes. Work up including head CT, ECG, troponin I so far negative. Of note, she takes ativan and oxycodone for unknown reason and took both prior to the incident. Review of Systems Review of Systems: Gen: no fever Resp: no sob, no cough CV: no chest, no GERARDO, no leg edema GI: No n/v, no abd pain Neuro: No confusion [facility] Medical History Seasonal allergies Osteopenia Constipation Acquired hypothyroidism Overweight (BMI 25.0-29.9) Cataract Seizures Stroke (~2000) Ash ash disease (~2000) Urinary frequency Allergic rhinitis Degenerative disc disease, cervical Neck pain Depression Anxiety Insomnia Epilepsy Obesity (BMI 30-39.9) Osteoarthritis Benign essential hypertension Pure hypercholesterolemia Rib pain on right side Left shoulder pain Recurrent dry cough Pain of right scapula Right-sided thoracic back pain Family History Father Chronic mental illness Mother Hypertension Other Mental health problem Surgical History History of left knee replacement H/O breast surgery Hx of colonoscopy History of kidney surgery Status post cervical disc replacement History of knee replacement procedure of right knee Hx of knee surgery Social History Household Members: None Housing: House Are you a primary associate director career services to a significant other at home: No Do you presently have visiting nurse or other home services: Yes Alcohol intake: current Alcohol intake frequency: holidays/special occasions only Alcohol type: hard liquor Comment: not documented previous shift Patient Tobacco Use Status: Former Tobacco user Tobacco use type: Cigarette Years Smoked: 10 Smoked in Last 30 Days: No e-Cigarette/Vaping Use: Never Used Second Hand Smoke Exposure: No Use of substances other than those prescribed or required for medical reasons: No Advance Directives: Yes Advance Directives Information Provided: Yes Advance Directives on File: No Advance Directives Date on File: 05/23/23 Do you have a plan to hurt others: No Plan service: No Current occupational status: retired Cognitive needs: Yes (Walker) Hearing needs: No Vision needs: No Meds Allergies Allergy/AdvReac Type Severity Reaction Status Date / Time phenytoin [Dilantin] Allergy Severe Hives Verified 04/07/24 13:08 sertraline [SERTRALINE] Allergy Severe DROPPED Verified 04/07/24 13:08 SODIUM LEVEL, BP increase Sodium drop aspirin [ASPIRIN] Allergy Intermediate RISK OF Verified 04/07/24 13:08 BLEDING NSAIDS (Non-Steroidal Allergy Unknown risk of Verified 04/07/24 13:08 Anti-Inflamma bleeding Home Medications ?Medication ?Instructions ?Recorded ?Confirmed ?Last Taken ?Type oxycodone-acetaminophen 5 mg-325 1 tab PO Q4-6H PRN Pain 11/23/23 03/22/24 01/09/24 History mg tablet (Percocet) atorvastatin 80 mg tablet 80 mg PO BEDTIME 12/06/23 03/22/24 01/09/24 History aspirin 81 mg tablet,delayed 81 mg PO DAILY PRN 02/12/24 03/22/24 Unknown History release Physical Exam Vital Signs and Narrative: Vital Signs: Last Vital Signs Temp 97.9 F 04/07/24 13:13 Pulse 75 04/07/24 14:13 Resp 21 H 04/07/24 14:13 BP 145/73 H 04/07/24 14:13 Pulse Ox 98 04/07/24 14:13 O2 Del Method Room Air 04/07/24 14:13 BMI result Body Mass Index 28.8 General: AO X 3, no acute distress Resp: CTA bilateral CVS: S1,S2,RRR GI: +BS, NT, no distention Skin: No rash Neuro: motor grossly intact Psych: appropriate affect Results Labs 04/07/24 13:27 04/07/24 13:27 Labs: Laboratory Results - last 24 hr 04/07/24 13:27 MCV 89.6 MCH 29.9 MCHC 33.4 RDW 15.1 Plt Count 232 D MPV 9.6 Immature Gran % (Auto) 0.6 H Neut % (Auto) 75.7 H Lymph % (Auto) 15.8 L Patrick % (Auto) 6.5 Eos % (Auto) 1.2 Baso % (Auto) 0.2 Lymph # (Auto) 1.3 Patrick # (Auto) 0.6 Eos # (Auto) 0.1 Baso # (Auto) 0.0 Abs Immat Gran (auto) 0.05 H Absolute Neuts (auto) 6.4 Absolute Nucleated RBC 0.000 Nucleated RBC % (auto) 0.0 PT 11.0 INR 0.9 Anion Gap 15 Estim Creat Clear Calc 51.8 Estimated GFR > 60 Random Glucose 117 H Calcium 9.9 Total Bilirubin 0.3 Direct Bilirubin < 0.1 AST 24 ALT 20 Alkaline Phosphatase 107 Troponin I High Sens 2.9 B-Natriuretic Peptide 126 H Total Protein 7.2 Albumin 4.1 Lipase 27 Imaging Radiologist's Impressions: Impressions Head CT 04/07/24 13:11 IMPRESSION: 1. No acute intracranial pathology. 2. Atrophy, small vessel ischemic changes and old right basal ganglia infarct. Electronically signed by: Monica Grimes MD 04/07/2024 03:13 PM EST Assessment and Plan (1) Syncope: Status: Acute Plan 83/F PMH epilepsy, HTTN, h/o hemorrhagic cva in 2000, hypothyroid, breast ca s/p lumpectomy 2022, moyamoya disease here with syncope Syncope, etiology unclear--? seizure, orthostatic, arrythmia, vasovagal -monitor on tele -check orthostatic -Neuro consult htn -resume home meds per med rec hypoT -synthroid mood disorder -atvian, remerom, trazodonw epilepsy trileptal breast ca anastrazole dvt prophylaxis - lovenox full code obs for syncope Quality Stroke Does the patient have a stroke diagnosis?: No VTE Prior VTE?: No VTE Risk Level:: Medical - moderate - high VTE Device Contraindication: Treatment Not Indicated VTE Drug Contraindication: N/A - Med Ordered
[2024-04-07 16:10] LABS: Influenza A PCR NEGATIVE (Negative); Influenza B PCR NEGATIVE (Negative); Resp Syncy Virus RNA Qual PCR NEGATIVE (Negative); SARS COV2 PCR INHOUSE NEGATIVE (Negative)
[2024-04-07 16:45] LABS: Appearance Urine Clear; Color Urine Yellow; Glucose Urine UA Negative (Negative); Leukocyte Esterase Urine Negative (Negative); Nitrite Urine Negative (Negative); Specific Gravity - Urine 1.015 (1.005-1.025); Urine Blood Negative (Negative); Urine Ketones Negative (Negative); Urine Protein Negative (Neg-Trace)
--- NOTE | 2024-04-07 16:50 | PHA.MEDREC ---
Addendum entered by Tammy Looney RPh 04/07/24 16:55: Reviewed by [facility] Original Note: Pharmacy Consult ? Medication Reconciliation Pharmacy has completed the medication reconciliation. Spoke with patient to confirm medications. She stopped taking anastrozole 3 weeks ago because she was getting pains in her hands. She is not taking baby aspirin and reports that she does not have an allergy to it. She reports she takes atorvastatin but there is not claim history. She takes oxcarbazepine 1 tab in the morning and 1 and 1/2 tab at night (rx says 1 in the AM and 2 in PM). She reports she took her morning medications this morning including an oxycodone and a lorazepam. She is NOT on keppra.
[2024-04-07] MEDS: Enoxaparin Sodium 40 MG/0.4 ML SYRINGE SUBCUT (18:13)
[2024-04-07] MEDS: Mirtazapine 15 MG TABLET PO (23:03)
[2024-04-07] MEDS: Acetaminophen 325 MG TABLET 650 MG PO (23:03)
[2024-04-07] MEDS: LORazepam 0.5 MG TABLET PO (23:03)
[2024-04-07] MEDS: Atorvastatin Calcium 80 MG TABLET PO (23:03)
[2024-04-07] MEDS: 0.9 % Sodium Chloride Flush 3 ML SYRINGE IVFLUSH (23:06)
[2024-04-08] VITALS (8 sets, daily range): BP systolic 00–191; BP diastolic 00–82; PULSE 0–87; RESP 0–18; TEMP -17.7–36.4; O2SAT 94–95
[2024-04-08] MEDS: OXcarbazepine 150 MG TABLET 450 MG PO (00:23)
[2024-04-08 05:23] LABS: Anion Gap 13 (12-20); Blood Urea Nitrogen 18 mg/dL (9-16); Calcium 9.4 mg/dL (8.4-10.2); Carbon Dioxide 24 mmol/L (22-29); Chloride 107 mmol/L (96-108); Creatinine Clr Calc Pharmacy 53.7; Estimated Glomerular Filt Rate > 60; Glucose Random 99 mg/dL (60-115); Potassium 3.9 mmol/L (3.3-5.1); Sodium 140 mmol/L (135-145)
[2024-04-08] MEDS: Levothyroxine Sodium 50 MCG TABLET PO (06:35)
--- NOTE | 2024-04-08 08:55 | HO.PM.IMPN ---
Subjective Subjective Date of Service: 04/08/24 Interval History: 83 you f admitted for syncopal episode feeling well, no concerns, wants to go home. no chest pain, SOB, lightheadedness, abd pain, nausea or vomiting Constitutional Constitutional: Denies body ache(s), Denies chills, Denies fever(s) and Denies headache(s) Eyes Eyes: Denies blurry vision and Denies change in vision ENT Ears, Nose, Mouth, and Throat: Denies dizziness, Denies headache(s) and Denies nasal congestion Cardiovascular Cardiovascular: Denies chest pain, Denies rapid heart rate, Denies leg edema and Denies dyspnea Respiratory Respiratory: Denies cough and Denies dyspnea Gastrointestinal Gastrointestinal: Denies constipation, Denies diarrhea, Denies nausea and Denies vomiting Genitourinary Genitourinary: Denies dysuria and Denies urinary urgency Musculoskeletal Musculoskeletal: Denies numbness and Denies tingling Integumentary/Breasts Skin/Breast: Denies rash Neurologic Neurologic: Denies confusion, Denies dizziness, Denies headache(s), Denies focal weakness, Denies memory loss, Denies numbness, Denies convulsions and Denies tingling Psychiatric Psychiatric: Denies confusion and Denies memory loss Physical Exam Vital Signs: Vital Signs: Last Vital Signs Temp 97.6 F 04/08/24 08:28 Pulse 78 04/08/24 08:28 Resp 16 04/08/24 08:28 BP 158/71 H 04/08/24 08:28 Pulse Ox 94 04/08/24 08:28 O2 Del Method Room Air 04/08/24 08:28 BMI result Body Mass Index 28.8 General: AOx3, no acute distress Resp: CTA bilaterally CVS: S1, S2, RRR GI: +BS, NT, no distention Skin: Warm, dry Neuro: Cranial nerves II-XII grossly intact bilaterally. Motor grossly intact bilaterally. Strength equal 4/5 bilateral upper and lower extremities. Extremities: No edema Psych: Appropriate affect Const: General: No confusion Orientation/consciousness: No confusion Neuro: General: No confusion Objective Data Active Medications Acetaminophen (Acetaminophen 325 Mg Tablet) 650 mg PO Q6H PRN PRN Reason: Pain, Mild (Pain Scale 1-3), fever or headache Last Admin: 04/07/24 23:03 Dose: 650 mg Documented By: MIKE Amlodipine Besylate (Amlodipine Besylate 10 Mg Tablet) 10 mg PO DAILY [facility]; Protocol Atenolol (Atenolol 50 Mg Tablet) 50 mg PO DAILY [facility]; Protocol Atorvastatin Calcium (Atorvastatin Calcium 80 Mg Tablet) 80 mg PO BEDTIME [facility] Last Admin: 04/07/24 23:03 Dose: 80 mg Documented By: MIKE Calcium Carbonate (Calcium Carbonate 750 Mg Tab.Chew) 750 mg PO Q4H PRN PRN Reason: Heartburn Docusate Sodium (Docusate Sodium 100 Mg Capsule) 100 mg PO DAILY PRN PRN Reason: Constipation Enoxaparin Sodium (Enoxaparin Sodium 40 Mg/0.4 Ml Syringe) 40 mg SUBCUT Q24H [facility] Last Admin: 04/07/24 18:13 Dose: 40 mg Documented By: BOO Levothyroxine Sodium (Levothyroxine Sodium 50 Mcg Tablet) 50 mcg PO DAILY@0600 [facility] Last Admin: 04/08/24 06:35 Dose: 50 mcg Documented By: DAMIEN Lorazepam (Lorazepam 0.5 Mg Tablet) 0.5 mg PO BEDTIME [facility] Last Admin: 04/07/24 23:03 Dose: 0.5 mg Documented By: MIKE Magnesium Hydroxide (Milk Of Magnesia 30 Ml Oral.Susp) 30 ml PO DAILY PRN PRN Reason: Constipation Melatonin (Melatonin 3 Mg Tablet) 6 mg PO BEDTIME PRN PRN Reason: Insomnia Mirtazapine (Mirtazapine 15 Mg Tablet) 15 mg PO BEDTIME [facility] Last Admin: 04/07/24 23:03 Dose: 15 mg Documented By: MIKE Oxcarbazepine (Oxcarbazepine 300 Mg Tablet) 300 mg PO DAILY@0900 [facility] Oxcarbazepine (Oxcarbazepine 150 Mg Tablet) 450 mg PO BEDTIME [facility] Last Admin: 04/08/24 00:23 Dose: 450 mg Documented By: DAMIEN Polyethylene Glycol (Polyethylene Glycol 3350 17 Gm Powd.Pack) 17 gm PO DAILY PRN PRN Reason: Constipation Sodium Chloride (0.9 % Sodium Chloride Flush 3 Ml Syringe) 3 ml IVFLUSH QSHIFT [facility] Last Admin: 04/07/24 23:06 Dose: 3 ml Documented By: HO.SCHAFEE Trazodone HCl (Trazodone Hcl 100 Mg Tablet) 100 mg PO BEDTIME PRN PRN Reason: sleep Valsartan (Valsartan 160 Mg Tablet) 160 mg PO DAILY [facility] Labs 04/07/24 13:27 04/08/24 04:37 Labs: Laboratory Results - last 24 hr 04/07/24 04/07/24 04/08/24 13:27 16:36 04:37 MCV 89.6 MCH 29.9 MCHC 33.4 RDW 15.1 Plt Count 232 D MPV 9.6 Immature Gran % (Auto) 0.6 H Neut % (Auto) 75.7 H Lymph % (Auto) 15.8 L [place] % (Auto) 6.5 Eos % (Auto) 1.2 Baso % (Auto) 0.2 Lymph # (Auto) 1.3 [place] # (Auto) 0.6 Eos # (Auto) 0.1 Baso # (Auto) 0.0 Abs Immat Gran (auto) 0.05 H Absolute Neuts (auto) 6.4 Absolute Nucleated RBC 0.000 Nucleated RBC % (auto) 0.0 PT 11.0 INR 0.9 Anion Gap 15 13 Estim Creat Clear Calc 51.8 53.7 Estimated GFR > 60 > 60 Random Glucose 117 H 99 Calcium 9.9 9.4 Total Bilirubin 0.3 Direct Bilirubin < 0.1 AST 24 ALT 20 Alkaline Phosphatase 107 Troponin I High Sens 2.9 B-Natriuretic Peptide 126 H Total Protein 7.2 Albumin 4.1 Lipase 27 Urine Color Yellow Urine Appearance Clear Urine pH 6.0 Ur Specific [place] 1.015 Urine Protein Negative Urine Glucose (UA) Negative Urine Ketones Negative Urine Blood Negative Urine Nitrite Negative Ur Leukocyte Esterase Negative Influenza Type A (PCR) NEGATIVE Influenza Type B (PCR) NEGATIVE RSV RNA Qual (PCR) NEGATIVE SARS-CoV-2 RNA (RT-PCR) NEGATIVE Assessment and Plan (1) Syncope: Status: Acute Plan 83/F PMH epilepsy, HTN, h/o hemorrhagic cva in 2000, hypothyroid, breast ca s/p lumpectomy 2022, moyamoya disease here with syncope Syncope, etiology unclear--likey vasovagal, consider ?seizure, orthostatic, arrythmia -monitor on tele - has been NSR -check orthostatic - + with supine to sitting, likely unrelated as pt was sitting for 20+ mins prior to episode -Neuro consult - not yet seen htn -resume home meds per med rec hypoT -synthroid mood disorder -atvian, remerom, trazodonw epilepsy trileptal breast ca anastrazole dvt prophylaxis - lovenox full code continue obs for syncope Quality Stroke Does the patient have a stroke diagnosis?: No VTE Prior VTE?: No VTE Risk Level:: Medical - moderate - high VTE Device Contraindication: Treatment Not Indicated VTE Drug Contraindication: N/A - Med Ordered
[2024-04-08] MEDS: 0.9 % Sodium Chloride Flush 3 ML SYRINGE IVFLUSH (09:36)
[2024-04-08] MEDS: amLODIPine Besylate 10 MG TABLET PO (09:37)
[2024-04-08] MEDS: OXcarbazepine 300 MG TABLET PO (09:37)
[2024-04-08] MEDS: atenoloL 50 MG TABLET PO (09:37)
--- NOTE | 2024-04-08 09:57 | PC.NURSE ---
Pt A&Ox3 Skin is warm and dry Breaths and speech are slow, even, and unlabored. BP elevated. Pt medicated per JUL for AM meds. Valsartan unavailable in [facility] at this time. Pharmacy to deliver, will administer upon arrival. Pt expresses disinterest in being admitted and requests to speak with provider.
--- NOTE | 2024-04-08 10:23 | PM.DS ---
DS: Providers Provider Date of Service: 04/08/24 Date of admission: 04/07/24 16:19 Date of discharge: 04/08/24 Primary care physician: Kelvin Pruett MD Consults: 04/08/24 07:03 Consult to Neurology Routine Consulting Provider: [facility] Reason for consultation: syncope ? seizure DS: Diagnosis Discharge Diagnosis (1) Syncope: Status: Acute DS: Summary Hospital Course Hospital Course: H&P on admission: 83-year-old female with pertinent history of seizure disorder, hypertension, moyamoya disease, history of hemorrhagic CVA in 2000, hypothyroidism, history of breast cancer status post lumpectomy in 2022. She presents with syncope, according to her son who was with her. Patient was complaining of feeling tired and felt as if she was going to pass out, on the way out she became unresponsive at the back of the seat and son drove her back to the house about 10 minutes away. In the driveway, she was taken out of the car and was making gurgly breathing noise and son did 3 chest compressions, which woke her up but then again fell back to sleep until EMS arrived and then spontaneously woke up. Her pulse was not checked until EMS checked, so triage documentation stating she lost pulse is not true. No obvious seizure activity such as urinary or stool incontinence, prior seizures have been characterized by shakes. Work up including head CT, ECG, troponin I so far negative. Of note, she takes ativan and oxycodone for unknown reason and took both prior to the incident. Hospital course: Workup including head CT, ECG and troponin negative. Continuous telemetry normal. BMP normal. No sign of any infection. Orthostatics + with an increase in HR from supine to sitting, however, unlikely related to the syncopal episode as pt was sitting for a prolonged period of time without any change in position. She has been monitored since 1am today, nothing concerning on w/u and pt is feeling well. No further syncopal episodes. No chest pain, SOB, lightheadedness, change in vision, nausea or vomiting. Neuro consult was put in but not yet seen by patient. She is requesting to leave now. Status at Discharge Functional status at discharge: uses cane/walker Overall status at discharge: patient is back to baseline Time Attestation Discharge Coordination Time (in mins): 30 Quality: Safe Use of Opioids Does Pt have an Active Cancer Diagnosis on the Problem List?: No Quality: Stroke Does the patient have a stroke diagnosis?: No Physical Exam Vital Signs: Vital Signs: Last Vital Signs Temp 97.5 F 04/08/24 09:55 Pulse 87 04/08/24 09:37 Resp 18 04/08/24 09:34 BP 191/80 H 04/08/24 09:37 Pulse Ox 94 04/08/24 09:34 O2 Del Method Room Air 04/08/24 09:34 BMI result Body Mass Index 28.8 General: AOx3, no acute distress Resp: CTA bilaterally CVS: S1, S2, RRR GI: +BS, NT, no distention Skin: Warm, dry Neuro: Cranial nerves II-XII grossly intact bilaterally. Motor grossly intact bilaterally. Strength equal 4/5 bilateral upper and lower extremities. Extremities: No edema Psych: Appropriate affect DS: Data Data Completed and Pending Completed studies during hospitalization [Text1]: Procedures Introduction of Anesthetic Agent into Peripheral Nerves and Plexi, Percutaneous Approach (12/06/23) Replacement of Left Knee Joint with Synthetic Substitute, Cemented, Open Approach (12/06/23) Labs on day of discharge: Laboratory Results - last 24 hr 04/07/24 04/07/24 04/08/24 13:27 16:36 04:37 WBC 8.4 RBC 3.64 L Hgb 10.9 L Hct 32.6 L MCV 89.6 MCH 29.9 MCHC 33.4 RDW 15.1 Plt Count 232 D MPV 9.6 Immature Gran % (Auto) 0.6 H Neut % (Auto) 75.7 H Lymph % (Auto) 15.8 L [place] % (Auto) 6.5 Eos % (Auto) 1.2 Baso % (Auto) 0.2 Lymph # (Auto) 1.3 [place] # (Auto) 0.6 Eos # (Auto) 0.1 Baso # (Auto) 0.0 Abs Immat Gran (auto) 0.05 H Absolute Neuts (auto) 6.4 Absolute Nucleated RBC 0.000 Nucleated RBC % (auto) 0.0 PT 11.0 INR 0.9 Sodium 143 140 Potassium 4.3 3.9 Chloride 108 107 Carbon Dioxide 24 24 Anion Gap 15 13 BUN 16 18 H Creatinine 0.82 0.79 Estim Creat Clear Calc 51.8 53.7 Estimated GFR > 60 > 60 Random Glucose 117 H 99 Calcium 9.9 9.4 Total Bilirubin 0.3 Direct Bilirubin < 0.1 AST 24 ALT 20 Alkaline Phosphatase 107 Troponin I High Sens 2.9 B-Natriuretic Peptide 126 H Total Protein 7.2 Albumin 4.1 Lipase 27 Urine Color Yellow Urine Appearance Clear Urine pH 6.0 Ur Specific [place] 1.015 Urine Protein Negative Urine Glucose (UA) Negative Urine Ketones Negative Urine Blood Negative Urine Nitrite Negative Ur Leukocyte Esterase Negative Influenza Type A (PCR) NEGATIVE Influenza Type B (PCR) NEGATIVE RSV RNA Qual (PCR) NEGATIVE SARS-CoV-2 RNA (RT-PCR) NEGATIVE Discharge Plan Discharge Anticipated Discharge Date/Time: 04/08/24 10:16 Patient Disposition: Home, Self-Care Discharge Diagnosis: syncope Referrals: Kelvin Pruett MD [Primary Care Provider] - 1 Week Discharge Medications: Continued (DME) walker Misc See Rx Instructions .ROUTE .MEDSUPPLY Qty: 1 0RF Rx Instructions: Folding front wheeled walker atenolol 50 mg tablet 50 mg PO DAILY Qty: 90 3RF mirtazapine 15 mg tablet 15 mg PO BEDTIME 90 Days Qty: 90 0RF irbesartan 300 mg tablet 300 mg PO DAILY Qty: 90 3RF levothyroxine 50 mcg tablet 50 mcg PO DAILY@0600 Qty: 90 3RF Rx Instructions: Take on an empty stomach, first thing in the morning, with water. Do not eat or drink anything else for 30 minutes afterwards amlodipine 10 mg tablet 10 mg PO DAILY 90 Days Qty: 90 1RF Protocol: Hold for SBP< HOLD for SBP < : 90 trazodone 100 mg tablet 100 mg PO BEDTIME PRN (Reason: sleep) 90 Days Qty: 90 0RF oxcarbazepine 300 mg tablet 450 mg PO BEDTIME lorazepam 0.5 mg tablet 0.5 mg PO BEDTIME polyethylene glycol 3350 [Miralax] 17 gram/dose Powder 17 g PO DAILY PRN (Reason: Constipation) oxcarbazepine 300 mg tablet 300 mg PO DAILY@0900 lorazepam 0.5 mg tablet 0.5 mg PO DAILY PRN (Reason: anxiety) oxycodone-acetaminophen [Percocet] 5-325 mg Tablet 1 tab PO Q4-6H PRN (Reason: Pain) atorvastatin 80 mg tablet 80 mg PO BEDTIME acetaminophen 325 mg Tablet 650 mg PO Q6H PRN (Reason: Pain, Mild (Pain Scale 1-3), fever or headache) 30 Days Qty: 240 0RF docusate sodium 100 mg Capsule 100 mg PO DAILY PRN (Reason: Constipation) 30 Days Qty: 30 0RF Diet: Regular diet Activity on Discharge: As tolerated Stand Alone Forms: Patient Portal Discharge page Print Language: Belarusian Care Plan Goals: recovery from syncopal episode Health Concerns: syncope Plan of Treatment: continue adquate hydration transition slowly from laying to sitting upright and sitting to standing Assessment: see above
[2024-04-08] MEDS: Valsartan 160 MG TABLET PO (12:08)
--- NOTE | 2024-04-08 12:09 | MHC.CM.PN ---
CM MET WITH PT AND SON AT BEDSIDE PT LIVES ALONE AND IS INDEPENDENT WITH CARE SHE HAS A CANE AND WALKER BUT DOES NOT USE THEM AT BASELINE SHE SAYS SHE HAS A HCP, COPY REQUESTED PCP: HALI BROOKS OBSERVATION NOTICE DELIVERED DCP: HOME TODAY WITH NO SERVICES VIA PRIVATE TRANSPORT
--- NOTE | 2024-04-08 12:10 | PC.NURSE ---
Pt wishes to leave hospital at this time. Per hospitalist, Pt is in need of neuro consult; Pt is unwilling to wait. Hospitalist aware and d/c paperwork entered.
== END 2024-04-08 12:24 | disposition home or self-care (01) ==
LOC: HO.ED 15:22 → HO.EDOVER 16:29
PROVIDERS: Admitting Provider Internal Medicine; Emergency Provider Emergency Medicine; PCP Internal Medicine; Visit Provider Internal Medicine
DX: R55 Syncope and collapse (principal); I10 Essential (primary) hypertension; G40.909 Epilepsy, unspecified, not intractable, without status epilepticus; E03.9 Hypothyroidism, unspecified; F39 Unspecified mood [affective] disorder; Z03.818 Encounter for observation for suspected exposure to other biological agents ruled out; Z85.3 Personal history of malignant neoplasm of breast; Z79.899 Other long term (current) drug therapy
CPT/HCPCS: 0241U; 36415; 70450; 71045; 80048; 80076; 81003; 83690; 83880; 84484; 85025; 85610; 93005; 96372; 99222; 99285; J1650

== ENCOUNTER → 2024-04-07 13:11 | Outpatient (BNV) | payer MEDICARE, SELFPAY | PROVIDERS: Admitting Provider Internal Medicine; Emergency Provider Emergency Medicine; PCP Internal Medicine; Visit Provider Internal Medicine Cardiovascular Disease | DX: R55 Syncope and collapse (principal) | CPT/HCPCS: 93010 ==

== ENCOUNTER → 2024-04-07 16:19 | Outpatient (BNV) | payer MEDICARE, SELFPAY | PROVIDERS: Admitting Provider Internal Medicine; Emergency Provider Emergency Medicine; PCP Internal Medicine; Visit Provider Physician Assistant | DX: R55 Syncope and collapse (principal) | CPT/HCPCS: 99223; 99238; 99499 ==

== ENCOUNTER 2024-05-17 08:40 | Outpatient (REF) | payer MEDICARE, SELFPAY ==
--- OUTSIDE RECORDS SUMMARY | 2024-05-17 08:43 | XMS_ITS | Clinical Summary ---
Author Organization Unknown Care Team Providers Care Hand Launderer Name Role Phone CECILIA VEGA, HALI Unavailable Unavailable ZAYDA PT, ELIDA Unavailable Unavailable SPAFFOSIRIS OT, PAM Unavailable Unavailable DOMINIQUE RN, TREV Unavailable Unavailab temo RIOS CYCLE ANALYST, PRASAD Unavailable Vonnie edwin NORIEGA METAL HARDENER, WILLY Unavailable Unavailable Payers Payer Name Policy Type Policy Number Effective Date Expira tion Date MEDICARE.NGS.PDGM [id number] Problems Condition Name Condition Details Condition Category Status Onset Date Resolution Date Last Treatment Date Treating Clinician Comments IRON DEFICIENCY ANEMIA, UNSPECIFIED Active 01-13 00:00: 00 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 Active 815 00:00: 00 AFTERCARE FOLLOWING JOINT REPLACEMENT SURGERY Active 7- 00:00: 00 OTH DISRD OF BONE DENSITY AND STRUCTURE, UNSPECIFIED SITE Active 05-29 00:00: 00 ESSENTIAL (PRIMARY) HYPERTENSION Active 05-29 00:00: 00 MOYAMOYA DISEASE Active 01-13 00:00: 00 OTHER SEIZURES Active 05-29 00:00: 00 INSOMNIA, UNSPECIFIED Active 05-29 00:00: 00 CONSTIPATION , UNSPECIFIED Active 05-29 00:00: 00 MAJOR DEPRESSIVE DISORDER, RECURRENT, UNSPECIFIED Active 05-29 00:00: 00 ANXIETY DISORDER, UNSPECIFIED Active 05-29 00:00: 00 DEFICIENCY OF OTHER SPECIFIED B GROUP VITAMINS Active 05-29 00:00: 00 UNSPECIFIED AGE-RELATED CATARACT Active 05-29 00:00: 00 HYPO-OSMOLAL ITY AND HYPONATREMIA Active 05-29 00:00: 00 OBESITY, UNSPECIFIED Active 05-29 00:00: 00 HYPERLIPIDEM IA, UNSPECIFIED Active 05-29 00:00: 00 HYPOTHYROIDI SM, UNSPECIFIED Active 05-29 00:00: 00 PRESENCE OF ARTIFICIAL KNEE JOINT, BILATERAL Active 12-22 00:00: 00 RETIREMENT (CURRENT) USE OF ASPIRIN Active 12-22 00:00: 00 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 Active 12-22 00:00: 00 BODY MASS INDEX [BMI] 25.0-25.9, ADULT Active 05-29 00:00: 00 PERSONAL HISTORY OF MALIGNANT NEOPLASM OF BREAST Active 05-29 00:00: 00 PRSNL HX OF TIA (TIA), AND CEREB INFRC W/O RESID DEFICITS Active 05-29 00:00: 00 Allergies, Adverse Reactions, Alerts Allergy Name Allergy Type Status Severity Reaction(s) Onset Date Inactive Date Treating Clinician Comments DILANTIN Propensity to adverse reactions Active 12-22 15:06: 53 SERTRALINE Propensity to adverse reactions Active 12-22 15:08: 12 Medications Ordered Medication Name Filled Medication Name Start Date Stop Date Current Medication? Ordering Clinician Indication Dosage Frequency Signature (SIG) Comments Components atenolol 50 mg tablet 12-17 00:00: 00 Yes [id number] BETA CRESENCIO 1 tablet DAILY 1 tablet DAILY (route: oral) Med Classific ation: Cardiovas cular Therapy Agents irbesartan 300 mg tablet 12-05 00:00: 00 Yes [id number] HTN 1 tablet DAILY 1 tablet DAILY (route: oral) Med Classific ation: Cardiovas cular Therapy Agents lorazepam 0.5 mg tablet 11-21 00:00: 00 Yes [id number] ANXIETY 1 tablet BEDTIME 1 tablet BEDTIME (route: oral) Med Classific ation: Central Nervous System Agents amlodipine 5 mg tablet 12-22 00:00: 00 01-13 00:00 :00 No [id number] HTN 1 tablet DAILY 1 tablet DAILY (route: oral) Med Classific ation: Cardiovas cular Therapy Agents anastrozole 1 mg tablet 12-22 00:00: 00 Yes [id number] HX OF BREAST CANCER 1 tablet DAILY 1 tablet DAILY (route: oral) Med Classific ation: Antineopl astics atorvastati n 80 mg tablet 12-22 00:00: 00 Yes [id number] HLD 1 tablet BEDTIME 1 tablet BEDTIME (route: oral) Med Classific ation: Cardiovas cular Therapy Agents celecoxib 100 mg capsule 12-22 00:00: 00 12-25 23:59 :00 No [id number] NSAID 1 capsule 2 TIMES DAILY 1 capsule 2 TIMES DAILY (route: oral) Med Classific ation: Analgesic , Anti-infl ammatory or Antipyret ic ferrous sulfate 325 mg (65 mg iron) tablet 12-22 00:00: 00 12-25 23:59 :00 No [id number] SUPPLEMENT 1 tablet DAILY 1 tablet DAILY (route: oral) Med Classific ation: Electroly te Balance-N utritiona l Products levothyroxi ne 50 mcg capsule 12-22 00:00: 00 Yes [id number] THYROID 1 capsule DAILY 1 capsule DAILY (route: oral) Med Classific ation: Endocrine loratadine 10 mg tablet 12-22 00:00: 00 12-25 23:59 :00 No [id number] SEASONAL ALLERGIES 1 tablet DAILY 1 tablet DAILY (route: oral) Med Classific ation: Respirato ry Therapy Agents Miralax 17 gram/dose oral powder 12-22 00:00: 00 Yes [id number] CONSTIPATIO N 17 gram DAILY 17 gram DAILY (route: oral) Med Classific ation: Gastroint estinal Therapy Agents mirtazapine 15 mg tablet 12-22 00:00: 00 12-24 12:01 :09.3 23 No [id number] DEPRESSION 1 tablet BEDTIME 1 tablet BEDTIME (route: oral) Med Classific ation: Central Nervous System Agents omeprazole 40 mg capsule,del ayed release 12-22 00:00: 00 Yes [id number] DYSPEPSIA 1 capsule DAILY 1 capsule DAILY (route: oral) Med Classific ation: Gastroint estinal Therapy Agents oxcarbazepi ne 300 mg tablet 12-22 00:00: 00 01-13 00:00 :00 No [id number] ANTICONVULS ANT 1.5 tablet BEDTIME 1.5 tablet BEDTIME (route: oral) Med Classific ation: Central Nervous System Agents oxycodone 10 mg tablet 12-22 00:00: 00 12-25 23:59 :00 No [id number] PAIN 1 tablet EVERY 4 HOURS 1 tablet EVERY 4 HOURS (route: oral) Med Classific ation: Analgesic , Anti-infl ammatory or Antipyret ic trazodone 100 mg tablet 12-22 00:00: 00 Yes [id number] INSOMNIA 1 tablet BEDTIME 1 tablet BEDTIME (route: oral) Med Classific ation: Central Nervous System Agents Tylenol Extra Strength 500 mg tablet 12-22 00:00: 00 Yes [id number] PAIN 2 tablet 3 TIMES DAILY 2 tablet 3 TIMES DAILY (route: oral) Med Classific ation: Analgesic , Anti-infl ammatory or Antipyret ic aspirin 325 mg tablet 12-24 00:00: 00 01-05 23:59 :00 No [id number] blood thinner 1 tablet 2 TIMES DAILY 1 tablet 2 TIMES DAILY (route: oral) Med Classific ation: Analgesic , Anti-infl ammatory or Antipyret ic oxycodone 5 mg tablet 12-25 00:00: 00 01-13 00:00 :00 No [id number] SEVERE PAIN 1 tablet EVERY 4 HOURS 1 tablet EVERY 4 HOURS (route: oral) Med Classific ation: Analgesic , Anti-infl ammatory or Antipyret ic amlodipine 5 mg tablet 01-08 00:00: 00 01-08 23:59 :00 No [id number] HIGH BLOOD PRESSURE 1 tablet DAILY 1 tablet DAILY (route: oral) Med Classific ation: Cardiovas cular Therapy Agents Colace 100 mg capsule 01-08 00:00: 00 01-09 23:59 :00 No [id number] CONSTIPATIO N 2 capsule BEDTIME 2 capsule BEDTIME (route: oral) Med Classific ation: Gastroint estinal Therapy Agents Colace 100 mg capsule 01-10 00:00: 00 Yes [id number] CONSTIPATIO N 2 capsule BEDTIME 2 capsule BEDTIME (route: oral) Med Classific ation: Gastroint estinal Therapy Agents Metamucil [facility] Fiber 3.4 gram/5.8 gram oral powder 14 00:00: 00 Yes [id number] CONSTIPATIO N 5.8 gram DAILY 5.8 gram DAILY (route: oral) Med Classific ation: Gastroint estinal Therapy Agents amlodipine 10 mg tablet 18 00:00: 00 Yes [id number] HTN 10 mg DAILY 10 mg DAILY (route: oral) Med Classific ation: Cardiovas cular Therapy Agents aspirin 81 mg chewable tablet 01-13 00:00: 00 Yes [id number] NSAID 81 mg DAILY 81 mg DAILY (route: oral) Med Classific ation: Hematolog ical Agents Keppra 500 mg tablet 01-13 00:00: 00 02-19 23:59 :00 No [id number] TREATS SEIZURE DISORDER 500 mg 2 TIMES DAILY 500 mg 2 TIMES DAILY (route: oral) Med Classific ation: Central Nervous System Agents Percocet 5 mg-325 mg tablet 01-13 00:00: 00 Yes [id number] PAIN 5-35 mg EVERY 4 HOURS 5-35 mg EVERY 4 HOURS (route: oral) Med Classific ation: Analgesic , Anti-infl ammatory or Antipyret ic Senna Lax 8.6 mg tablet 01-13 00:00: 00 Yes [id number] STOOL SOFTNER 1 tablet BEDTIME 1 tablet BEDTIME (route: oral) Med Classific ation: Gastroint estinal Therapy Agents mirtazapine 15 mg tablet 02-19 00:00: 00 Yes [id number] IMPROVES SLEEP 1 tablet BEDTIME 1 tablet BEDTIME (route: oral) Med Classific ation: Central Nervous System Agents oxcarbazepi ne 300 mg tablet 02-19 00:00: 00 Yes [id number] SEIZURE DISORDER 1 tablet DAILY 1 tablet DAILY (route: oral) Med Classific ation: Central Nervous System Agents oxcarbazepi ne 300 mg tablet 02-19 00:00: 00 Yes [id number] SEIZURE DISORDER 1.5 tablet BEDTIME 1.5 tablet BEDTIME (route: oral) Med Classific ation: Central Nervous System Agents Vital Signs Vital Name Observation Time Observation Value Commen ts Temperature 2024-02-20 12:55:00.000 97.3 [degF] Temperature 2024-02-14 10:48:00.000 97 [degF] Temperature 2024-02-07 14:42:00.000 98 [degF] Temperature 2024-02-06 11:41:00.000 98.7 [degF] Temperature 2024-02-01 13:11:00.000 97.5 [degF] Temperature 2024-01-31 15:08:00.000 98.3 [degF] Temperature 2024-01-25 13:28:00.000 98.3 [degF] Temperature 2024-01-19 10:55:00.000 97.3 [degF] Temperature 2024-01-18 11:26:00.000 97.7 [degF] Temperature 2024-01-14 10:44:00.000 97.8 [degF] Temperature 2024-01-09 17:09:00.000 97.9 [degF] Temperature 2024-01-05 14:44:00.000 97.7 [degF] Temperature 2024-01-04 11:21:00.000 97.7 [degF] Temperature 2024-01-01 15:16:00.000 98.3 [degF] Temperature 2023-12-27 12:56:00.000 97 [degF] Temperature 2023-12-27 11:15:00.000 98.1 [degF] Temperature 2023-12-26 13:46:00.000 98.3 [degF] Temperature 2023-12-25 15:02:00.000 97.9 [degF] Temperature 2023-12-23 15:11:00.000 97.8 [degF] BMI (%) 2024-01-14 10:25:49.000 30 kg/m2 BMI (%) 2023-12-23 15:11:00.000 31 kg/m2 Height 2024-01-14 10:25:02.000 63 [in_us] Height 2023-12-23 15:11:00.000 63 [in_us] Pulse 2024-02-20 12:55:00.000 80 /min Pulse 2024-02-14 10:48:00.000 78 /min Pulse 2024-02-07 14:42:00.000 75 /min Pulse 2024-02-06 11:41:00.000 70 /min Pulse 2024-02-01 13:11:00.000 74 /min Pulse 2024-01-31 15:08:00.000 71 /min Pulse 2024-01-25 13:28:00.000 73 /min Pulse 2024-01-19 10:55:00.000 65 /min Pulse 2024-01-18 11:26:00.000 70 /min Pulse 2024-01-14 10:44:00.000 70 /min Pulse 2024-01-09 17:09:00.000 79 /min Pulse 2024-01-05 14:44:00.000 75 /min Pulse 2024-01-04 11:21:00.000 76 /min Pulse 2024-01-01 15:16:00.000 81 /min Pulse 2023-12-27 12:56:00.000 62 /min Pulse 2023-12-27 11:15:00.000 74 /min Pulse 2023-12-26 13:46:00.000 57 /min Pulse 2023-12-25 15:02:00.000 69 /min Pulse 2023-12-23 15:11:00.000 62 /min O2 Saturation (%) 2024-02-20 12:55:00.000 96 % O2 Saturation (%) 2024-02-06 11:41:00.000 96 % O2 Saturation (%) 2024-02-01 13:11:00.000 97 % O2 Saturation (%) 2024-01-25 13:28:00.000 98 % O2 Saturation (%) 2024-01-18 11:26:00.000 96 % O2 Saturation (%) 2024-01-14 10:44:00.000 97 % O2 Saturation (%) 2024-01-09 17:09:00.000 97 % O2 Saturation (%) 2024-01-04 11:21:00.000 97 % O2 Saturation (%) 2023-12-27 12:56:00.000 97 % O2 Saturation (%) 2023-12-27 11:15:00.000 95 % O2 Saturation (%) 2023-12-26 13:46:00.000 97 % O2 Saturation (%) 2023-12-23 15:11:00.000 97 % Respirations 2024-02-20 12:55:00.000 18 /min Respirations 2024-02-14 10:48:00.000 18 /min Respirations 2024-02-07 14:42:00.000 17 /min Respirations 2024-02-06 11:41:00.000 18 /min Respirations 2024-02-01 13:11:00.000 18 /min Respirations 2024-01-31 15:08:00.000 18 /min Respirations 2024-01-25 13:28:00.000 18 /min Respirations 2024-01-19 10:55:00.000 18 /min Respirations 2024-01-18 11:26:00.000 18 /min Respirations 2024-01-14 10:44:00.000 18 /min Respirations 2024-01-09 17:09:00.000 18 /min Respirations 2024-01-05 14:44:00.000 18 /min Respirations 2024-01-04 11:21:00.000 18 /min Respirations 2024-01-01 15:16:00.000 18 /min Respirations 2023-12-27 13:07:00.000 18 /min Respirations 2023-12-27 11:15:00.000 16 /min Respirations 2023-12-26 13:46:00.000 18 /min Respirations 2023-12-25 15:02:00.000 18 /min Respirations 2023-12-23 15:11:00.000 18 /min Weight (lbs) 2024-01-14 10:25:49.000 170 [lb_av] Weight (lbs) 2023-12-26 13:46:00.000 174 [lb_av] Weight (lbs) 2023-12-23 15:11:00.000 179 [lb_av] Systolic Blood Pressure 2024-02-20 12:55:00.000 138 mm [Hg] Systolic Blood Pressure 2024-02-14 10:48:00.000 114 mm [Hg] Systolic Blood Pressure 2024-02-07 14:42:00.000 120 mm [Hg] Systolic Blood Pressure 2024-02-06 11:41:00.000 120 mm [Hg] Systolic Blood Pressure 2024-02-01 13:11:00.000 152 mm [Hg] Systolic Blood Pressure 2024-01-31 15:08:00.000 130 mm [Hg] Systolic Blood Pressure 2024-01-25 13:28:00.000 130 mm [Hg] Systolic Blood Pressure 2024-01-19 10:55:00.000 116 mm [Hg] Systolic Blood Pressure 2024-01-18 11:26:00.000 130 mm [Hg] Systolic Blood Pressure 2024-01-14 10:44:00.000 110 mm [Hg] Systolic Blood Pressure 2024-01-09 17:09:00.000 180 mm [Hg] Systolic Blood Pressure 2024-01-05 14:44:00.000 150 mm [Hg] Systolic Blood Pressure 2024-01-04 11:21:00.000 140 mm [Hg] Systolic Blood Pressure 2024-01-01 15:16:00.000 136 mm [Hg] Systolic Blood Pressure 2023-12-27 13:04:00.000 150 mm [Hg] Systolic Blood Pressure 2023-12-27 11:15:00.000 148 mm [Hg] Systolic Blood Pressure 2023-12-26 13:46:00.000 150 mm [Hg] Systolic Blood Pressure 2023-12-25 15:02:00.000 132 mm [Hg] Systolic Blood Pressure 2023-12-23 15:11:00.000 118 mm [Hg] Diastolic Blood Pressure 2024-02-20 12:55:00.000 62 mm [Hg] Diastolic Blood Pressure 2024-02-14 10:48:00.000 58 mm [Hg] Diastolic Blood Pressure 2024-02-07 14:42:00.000 50 mm [Hg] Diastolic Blood Pressure 2024-02-06 11:41:00.000 54 mm [Hg] Diastolic Blood Pressure 2024-02-01 13:11:00.000 60 mm [Hg] Diastolic Blood Pressure 2024-01-31 15:08:00.000 68 mm [Hg] Diastolic Blood Pressure 2024-01-25 13:28:00.000 56 mm [Hg] Diastolic Blood Pressure 2024-01-19 10:55:00.000 60 mm [Hg] Diastolic Blood Pressure 2024-01-18 11:26:00.000 60 mm [Hg] Diastolic Blood Pressure 2024-01-14 10:44:00.000 70 mm [Hg] Diastolic Blood Pressure 2024-01-09 17:09:00.000 60 mm [Hg] Diastolic Blood Pressure 2024-01-05 14:44:00.000 62 mm [Hg] Diastolic Blood Pressure 2024-01-04 11:21:00.000 60 mm [Hg] Diastolic Blood Pressure 2024-01-01 15:16:00.000 62 mm [Hg] Diastolic Blood Pressure 2023-12-27 13:04:00.000 80 mm [Hg] Diastolic Blood Pressure 2023-12-27 11:15:00.000 70 mm [Hg] Diastolic Blood Pressure 2023-12-26 13:46:00.000 70 mm [Hg] Diastolic Blood Pressure 2023-12-25 15:02:00.000 62 mm [Hg] Diastolic Blood Pressure 2023-12-23 15:11:00.000 68 mm [Hg] Plan of Treatment Planned Activity Planned Date Details Comments Future Scheduled Test RN TO OBSE RVE, ASSESS, EVALUATE, AND DEVELOP AN INDIVIDUALIZED PLAN OF CARE. AGENCY MAY ACCEPT ORDERS FROM CONSULTING PHYSICIANS. REGISTERED NURSETO OBSERVE AND ASSESS/LICENSED PRACTICAL NURSE TO OBSERVE FOR RISK FOR FALLS AND INSTRUCT IN FALL PREVENTION, HOME SAFETY, MEDICATION MANAGEMENT, INFECTION PREVENTION, AND NUTRITION MANAGEMENT. REGISTERED NURSE/LICENSED PRACTICAL NURSE MAY PERFORM O2 SATURATION LEVEL ON ADMISSION AND PRN FOR RN TO ASSESS/CYCLE ANALYST TO OBSERVE PATIENT, WITH NOTIFICATION TO THE PHYSICIAN IF SATURATION IS 90% IN THE ABSENCE OF MORE SPECIFIC PARAMETERS FROM THE PHYSICIAN. AGENCY MAY PERFORM A RESUMPTION OF CARE VISIT FOLLOWING ANY HOSPITAL ADMISSION. REGISTERED NURSE/LICENSED PRACTICAL NURSE TO MONITOR CO-MORBID CONDITIONS LISTED ON THE PLAN OF CARE AND ANY NEW CONDITIONS THAT PRESENT THEMSELVES DURING THIS EPISODE TO IDENTIFY CHANGES AND INTERVENE TO MINIMIZE COMPLICATIONS. [code = RN TO OBSERVE, ASSESS, EVALUATE, AND DEVELOP AN INDIVIDUALIZED PLAN OF CARE. AGENCY MAY ACCEPT ORDERS FROM CONSULTING PHYSICIANS. REGISTERED NURSETO OBSERVE AND ASSESS/LICENSED PRACTICAL NURSE TO OBSERVE FOR RISK FOR FALLS AND INSTRUCT IN FALL PREVENTION, HOME SAFETY, MEDICATION MANAGEMENT, INFECTION PREVENTION, AND NUTRITION MANAGEMENT. REGISTERED NURSE/LICENSED PRACTICAL NURSE MAY PERFORM O2 SATURATION LEVEL ON ADMISSION AND PRN FOR RN TO ASSESS/CYCLE ANALYST TO OBSERVE PATIENT, WITH NOTIFICATION TO THE PHYSICIAN IF SATURATION IS 90% IN THE ABSENCE OF MORE SPECIFIC PARAMETERS FROM THE PHYSICIAN. AGENCY MAY PERFORM A RESUMPTION OF CARE VISIT FOLLOWING ANY HOSPITAL ADMISSION. REGISTERED NURSE/LICENSED PRACTICAL NURSE TO MONITOR CO-MORBID CONDITIONS LISTED ON THE PLAN OF CARE AND ANY NEW CONDITIONS THAT PRESENT THEMSELVES DURING THIS EPISODE TO IDENTIFY CHANGES AND INTERVENE TO MINIMIZE COMPLICATIONS.] Future Scheduled Test RISK FOR H OSPITALIZATION; REGISTERED NURSE TO ASSESS /TEACH, LICENSED PRACTICAL NURSE TO OBSERVE/TEACH PATIENT/CAREGIVER ON RISK FOR HOSPITALIZATION/EMERGENCY ROOM VISITS, TEACH SIGNS AND SYMPTOMS THAT PUT PATIENT AT RISK, WHEN TO NOTIFY NURSE/PHYSICIAN OF COMPLICATIONS/DECLINE, AND WHEN TO CALL 911. [code = RISK FOR HOSPITALIZATION; REGISTERED NURSE TO ASSESS /TEACH, LICENSED PRACTICAL NURSE TO OBSERVE/TEACH PATIENT/CAREGIVER ON RISK FOR HOSPITALIZATION/EMERGENCY ROOM VISITS, TEACH SIGNS AND SYMPTOMS THAT PUT PATIENT AT RISK, WHEN TO NOTIFY NURSE/PHYSICIAN OF COMPLICATIONS/DECLINE, AND WHEN TO CALL 911.] Future Scheduled Test MEDICATION MANAGEMENT; REGISTERED NURSE/LICENSED PRACTICAL NURSE TO REVIEW MEDICATIONS FOR INTERACTIONS, EFFECTIVENESS OF DRUG THERAPY, AND SIGNS/SYMPTOMS OF ADVERSE REACTIONS. MAY INSTRUCT AND REINFORCE MEDICATION TEACHING RELATED TO THE USE OF MEDICATIONS, DOSAGE, FREQUENCY, PURPOSE, SIDE EFFECTS, AND TO REPORT COMPLICATIONS. [code = MEDICATION MANAGEMENT; REGISTERED NURSE/LICENSED PRACTICAL NURSE TO REVIEW MEDICATIONS FOR INTERACTIONS, EFFECTIVENESS OF DRUG THERAPY, AND SIGNS/SYMPTOMS OF ADVERSE REACTIONS. MAY INSTRUCT AND REINFORCE MEDICATION TEACHING RELATED TO THE USE OF MEDICATIONS, DOSAGE, FREQUENCY, PURPOSE, SIDE EFFECTS, AND TO REPORT COMPLICATIONS.] Future Scheduled Test CARDIOVASC ULAR SYSTEM; REGISTERED NURSE TO ASSESS /TEACH, LICENSED PRACTICAL NURSE TO OBSERVE/TEACH RELATED TO ALTERED CARDIOVASCULAR STATUS TO MINIMIZE COMPLICATIONS AND REDUCE HOSPITALIZATION. [code = CARDIOVASCULAR SYSTEM; REGISTERED NURSE TO ASSESS /TEACH, LICENSED PRACTICAL NURSE TO OBSERVE/TEACH RELATED TO ALTERED CARDIOVASCULAR STATUS TO MINIMIZE COMPLICATIONS AND REDUCE HOSPITALIZATION.] Future Scheduled Test HYPERTENSI ON MANAGEMENT; REGISTERED NURSE TO ASSESS AND TEACH/LICENSED PRACTICAL NURSE TO OBSERVE AND TEACH WARNING SIGNS AND SYMPTOMS TO AVOID HOSPITALIZATION. [code = HYPERTENSION MANAGEMENT; REGISTERED NURSE TO ASSESS AND TEACH/LICENSED PRACTICAL NURSE TO OBSERVE AND TEACH WARNING SIGNS AND SYMPTOMS TO AVOID HOSPITALIZATION.] Future Scheduled Test PAIN MANAG EMENT; REGISTERED NURSE TO ASSESS AND TEACH/LICENSED PRACTICAL NURSE TO OBSERVE AND TEACH AND PROVIDE EDUCATION ON PAIN MANAGEMENT TECHNIQUES. [code = PAIN MANAGEMENT; REGISTERED NURSE TO ASSESS AND TEACH/LICENSED PRACTICAL NURSE TO OBSERVE AND TEACH AND PROVIDE EDUCATION ON PAIN MANAGEMENT TECHNIQUES.] Future Scheduled Test FALL REDUC TION MANAGEMENT; REGISTERED NURSE TO ASSESS AND TEACH/LICENSED PRACTICAL NURSE TO OBSERVE AND TEACH ON EDUCATION AND INTERVENTION TO IDENTIFY FALL RISK FACTORS SUCH MEDICATIONS THAT MAY CAUSE DIZZINESS, CHRONIC DISEASES, PSYCHOLOGICAL FACTORS, AND EMPOWER/EDUCATE PATIENT/CAREGIVER TO MINIMIZE FALL RISK. [code = FALL REDUCTION MANAGEMENT; REGISTERED NURSE TO ASSESS AND TEACH/LICENSED PRACTICAL NURSE TO OBSERVE AND TEACH ON EDUCATION AND INTERVENTION TO IDENTIFY FALL RISK FACTORS SUCH MEDICATIONS THAT MAY CAUSE DIZZINESS, CHRONIC DISEASES, PSYCHOLOGICAL FACTORS, AND EMPOWER/EDUCATE PATIENT/CAREGIVER TO MINIMIZE FALL RISK.] Future Scheduled Test SKIN INTEG RITY REGISTERED NURSE TO ASSESS AND TEACH/LICENSED PRACTICAL NURSE TO OBSERVE AND TEACH INTEGUMENTARY STATUS TO IDENTIFY CHANGES AND INTERVENE TO MINIMIZE COMPLICATIONS. PROVIDE SKILLED TEACHING OF GENERAL WOUND AND SKIN CARE AND PREVENTION RELATED TO POTENTIAL FOR OR ACTUAL ALTERED SKIN INTEGRITY MONITOR LEFT LOWER EXTREMITY SURGICAL WOUND FOR SIGNS AND SYMPTOMS OF INFECTION [code = SKIN INTEGRITY REGISTERED NURSE TO ASSESS AND TEACH/LICENSED PRACTICAL NURSE TO OBSERVE AND TEACH INTEGUMENTARY STATUS TO IDENTIFY CHANGES AND INTERVENE TO MINIMIZE COMPLICATIONS. PROVIDE SKILLED TEACHING OF GENERAL WOUND AND SKIN CARE AND PREVENTION RELATED TO POTENTIAL FOR OR ACTUAL ALTERED SKIN INTEGRITY MONITOR LEFT LOWER EXTREMITY SURGICAL WOUND FOR SIGNS AND SYMPTOMS OF INFECTION ] Future Scheduled Test PHYSICAL T HERAPIST TO EVALUATE FOR DECREASED STRENGTH [code = PHYSICAL THERAPIST TO EVALUATE FOR DECREASED STRENGTH ] Future Scheduled Test OCCUPATION AL THERAPIST TO EVALUATE FOR SELF CARE DEFICITS [code = OCCUPATIONAL THERAPIST TO EVALUATE FOR SELF CARE DEFICITS ] Future Scheduled Test AGENCY MAY PERFORM A RESUMPTION OF CARE VISIT FOLLOWING ANY HOSPITAL ADMISSION. PT TO EVALUATE, OBSERVE / ASSESS, AND MONITOR, METAL HARDENER TO OBSERVE AND MONITOR, PROVIDE SKILLED THERAPEUTIC INTERVENTION, ACTIVITY, EDUCATION, AND TRAINING TO ADDRESS; PT/METAL HARDENER TO PROVIDE GAIT TRAINING FOR IMPROVED MOBILITY AND /OR TO NORMALIZE GAIT PATTERN THERAPEUTIC EXERCISES AND ESTABLISHING A HOME EXERCISE PROGRAM (PT/METAL HARDENER) PT/METAL HARDENER TO PROVIDE STAIR TRAINING SIT TO/FROM STAND TRANSFERS (PT/METAL HARDENER) PT / METAL HARDENER TO MONITOR AND EDUCATE ON OXYGEN SATURATION DURING ADLS/IADLS, NOTIFY PHYSICIAN AND/OR THE RN CLINICAL ESTIMATOR JEWELRY FOR PHYSICIAN NOTIFICATION AND IF O2 SATS BELOW PHYSICIAN ORDERED PARAMETERS AFTER 10 MIN OF REST PT / METAL HARDENER MAY EDUCATE ON PAIN MANAGEMENT CLINICALLY INDICATED, INCLUDING NON-PHARMACOLOGICAL PAIN REDUCTION TECHNIQUES AND USE OF CRYOTHERAPY UP TO 20 MIN AT A TIME FOR PAIN MANAGEMENT 4 TIMES PER DAY TO LEFT KNEE PT/METAL HARDENER TO TEACH KNEE REPLACEMENT SELF-MANAGEMENT PT / METAL HARDENER TO OBSERVE WOUND/INCISION AND/OR INTACT DRESSING ON LEFT KNEE AND REPORT EARLY SIGNS AND SYMPTOMS OF WOUND DETERIORATION, COMPLICATIONS, OR INFECTION TO PHYSICIAN AND/OR THE RN CLINICAL ESTIMATOR JEWELRY FOR PHYSICIAN NOTIFICATION. PT/METAL HARDENER TO IDENTIFY FALL RISK FACTORS; EDUCATE THE PATIENT/CAREGIVER ON WAYS TO REDUCE FALL RISK FACTORS AND ESTABLISH HOME EXERCISE PROGRAM TO MINIMIZE FALL RISK. MAY TEACH THE PATIENT FLOOR RECOVERY WHEN CLINICALLY APPROPRIATE [code = AGENCY MAY PERFORM A RESUMPTION OF CARE VISIT FOLLOWING ANY HOSPITAL ADMISSION. PT TO EVALUATE, OBSERVE / ASSESS, AND MONITOR, METAL HARDENER TO OBSERVE AND MONITOR, PROVIDE SKILLED THERAPEUTIC INTERVENTION, ACTIVITY, EDUCATION, AND TRAINING TO ADDRESS; PT/METAL HARDENER TO PROVIDE GAIT TRAINING FOR IMPROVED MOBILITY AND /OR TO NORMALIZE GAIT PATTERN THERAPEUTIC EXERCISES AND ESTABLISHING A HOME EXERCISE PROGRAM (PT/METAL HARDENER) PT/METAL HARDENER TO PROVIDE STAIR TRAINING SIT TO/FROM STAND TRANSFERS (PT/METAL HARDENER) PT / METAL HARDENER TO MONITOR AND EDUCATE ON OXYGEN SATURATION DURING ADLS/IADLS, NOTIFY PHYSICIAN AND/OR THE RN CLINICAL ESTIMATOR JEWELRY FOR PHYSICIAN NOTIFICATION AND IF O2 SATS BELOW PHYSICIAN ORDERED PARAMETERS AFTER 10 MIN OF REST PT / METAL HARDENER MAY EDUCATE ON PAIN MANAGEMENT CLINICALLY INDICATED, INCLUDING NON-PHARMACOLOGICAL PAIN REDUCTION TECHNIQUES AND USE OF CRYOTHERAPY UP TO 20 MIN AT A TIME FOR PAIN MANAGEMENT 4 TIMES PER DAY TO LEFT KNEE PT/METAL HARDENER TO TEACH KNEE REPLACEMENT SELF-MANAGEMENT PT / METAL HARDENER TO OBSERVE WOUND/INCISION AND/OR INTACT DRESSING ON LEFT KNEE AND REPORT EARLY SIGNS AND SYMPTOMS OF WOUND DETERIORATION, COMPLICATIONS, OR INFECTION TO PHYSICIAN AND/OR THE RN CLINICAL ESTIMATOR JEWELRY FOR PHYSICIAN NOTIFICATION. PT/METAL HARDENER TO IDENTIFY FALL RISK FACTORS; EDUCATE THE PATIENT/CAREGIVER ON WAYS TO REDUCE FALL RISK FACTORS AND ESTABLISH HOME EXERCISE PROGRAM TO MINIMIZE FALL RISK. MAY TEACH THE PATIENT FLOOR RECOVERY WHEN CLINICALLY APPROPRIATE] Future Scheduled Test OCCUPATION AL THERAPY EVALUATION PERFORMED. NO ADDITIONAL VISITS REQUIRED. PROVIDED SKILLED INTERVENTION INCLUDING ADL AND IADL RETRAINING. [code = OCCUPATIONAL THERAPY EVALUATION PERFORMED. NO ADDITIONAL VISITS REQUIRED. PROVIDED SKILLED INTERVENTION INCLUDING ADL AND IADL RETRAINING. ] Goal 2024-01-14 Patient Goal - TO GET STRONG ER Goal 2024-02-20 Patient Goal - TO GET STRONG ER Goal Provider Goal - A PLAN OF CARE WILL BE ESTABLISHED THAT MEETS THE PATIENTS NEEDS. PATIENT WILL DEMONSTRATE OXYGEN SATURATION WITHIN NORMAL LIMITS OR PATIENTS OPTIMAL LEVEL ESTABLISHED BY THE PHYSICIAN THROUGHOUT CARE. CHANGES TO CO-MORBID CONDITIONS AND ANY NEW CONDITIONS WILL BE IDENTIFIED AND REPORTED TO THE PHYSICIAN. Goal Provider Goal - PATIENT/CAREGIVER WILL VERBALIZE UNDERSTANDING OF SIGNS AND SYMPTOMS THAT PUT THE PATIENT AT RISK FOR HOSPITALIZATION /EMERGENCY ROOM VISITS, WHEN TO NOTIFY NURSE/PHYSICIAN OF COMPLICATIONS/DECLINE AND WHEN TO CALL 911. Goal Provider Goal - PATIENT/CAREGIVER TO VERBALIZE, AND CONSISTENTLY DEMONSTRATE EFFECTIVE, SAFE MANAGEMENT OF MEDICATION INCLUDING KNOWLEDGE OF EFFECTIVENESS, POTENTIAL SIDE EFFECTS AND DRUG REACTIONS AND WHEN TO CONTACT THE APPROPRIATE CARE PROVIDER. PATIENT/CAREGIVER WILL BE ABLE TO VERBALIZE UNDERSTANDING OF MEDICATION REGIMEN AND ACCURATELY TAKE MEDICATIONS PRESCRIBED WITHOUT ADVERSE EFFECTS BY 02/22 Goal Provider Goal - PATIENT / CAREGIVER WILL VERBALIZE/DEMONSTRATE UNDERSTANDING OF MEASURES TO MANAGE ALTERED CARDIOVASCULAR STATUS BY 02/22 Goal Provider Goal - PATIENT / CAREGIVER WILL VERBALIZE/DEMONSTRATE AN ABILITY TO ADHERE TO SELF-MANAGEMENT OF HTN TO MINIMIZE COMPLICATIONS AND AVOID HOSPITALIZATION BY END OF EPISODE. Goal Provider Goal - PATIENT / CAREGIVER WILL VERBALIZE / DEMONSTRATE UNDERSTANDING OF PAIN CONTROL MEASURES BY 02/22 Goal Provider Goal - PATIENT/CAREGIVER ABLE TO IDENTIFY FALL RISK FACTORS AND IMPLEMENT STRATEGIES TO MINIMIZE FALL RISK. PATIENT/CAREGIVER WILL VERBALIZE/DEMONSTRATE AN ABILITY TO ADHERE TO FALL REDUCTION SELF MANAGEMENT AND LIFE-STYLE CHANGES AT DISCHARGE. PERSONAL GOAL(S) STATED BY PATIENT/CAREGIVER WILL BE MET BY 02/22 Goal Provider Goal - CHANGES IN SKIN INTEGRITY STATUS WILL BE IDENTIFIED AND REPORTED TO THE PHYSICIAN FOR PROMPT INTERVENTION. PATIENT / CAREGIVER WILL VERBALIZE/DEMONSTRATE ADEQUATE KNOWLEDGE OF INTEGUMENTARY STATUS AND APPROPRIATE MEASURES TO PROMOTE SKIN INTEGRITY AND PREVENT INJURY BY 02/22 Goal Provider Goal - Goal Provider Goal - Goal Provider Goal - PT LTG: PATIENT WILL DEMONSTRATE REDUCED GAIT DEVIATIONS TO REDUCE THE RISK FOR FALLING AND MINIMIZE STRAIN ON KNEES EVIDENCED BY IMPROVED HEEL STRIKE, ADEQUATE STEP LENGTH AND CONSISTENT FOOT CLEARANCE BILATERALLY USING CANE TO WALK WITH INDEPENDENCE IN ORDER TO ACCESS ALL AREAS OF THE HOME WITHIN 4 WEEKS PT LTG: PATIENT WILL DEMONSTRATE REDUCED FALL RISK EVIDENCED BY IMPROVED SELF- SELECTED WALKING SPEED (SSWS CUT SCORE 0.6 TO 0.9 INDICATES MODERATE FALL RISK, 0.6 M/S INDICATES HIGH FALL RISK) FROM 0.6M/SEC TO 1.0M/SEC WITHIN 4 WEEKS PT STG: PATIENT WILL DEMONSTRATE INDEPENDENCE WITH LOWER EXTREMITY HOME EXERCISE PROGRAM WITHIN 3 WEEKS PT LTG: PATIENT WILL DEMONSTRATE IMPROVED FUNCTIONAL STRENGTH EVIDENCED BY FIVE TIMES SIT TO STAND TEST (CUT SCORE >12 SECONDS INDICATES AN INCREASED FALL RISK) IMPROVING FROM 33 SECONDS TO 15 SECONDS WITHIN 4 WEEKS PT LTG: PATIENT WILL DEMONSTRATE INCREASED STRENGTH OF LEFT LE FROM 3-/5 TO 4/5 WITHIN 4 WEEKS IN ORDER TO IMPROVE SAFETY AND STABILITY WITH GAIT AND STAIRS PT LTG: PATIENT WILL DEMONSTRATE INCREASED ROM OF LEFT KNEE FROM -2-103 DEGREES TO 0-120 DEGREES WITHIN 4 WEEKS IN ORDER TO IMPROVE GAIT PATTERN AND TECHNIQUE WITH TRANSFERS AND STAIRS PT LTG: PATIENT WILL DEMONSTRATE IMPROVED ABILITY TO SAFELY NEGOTIATE STAIRS FROM MIN ASSIST TO INDEPENDENT WITH CANE AND RAIL IN ORDER TO SAFELY ENTER AND EXIT HOME WITHIN 4 WEEKS PT STG: PATIENT WILL DEMONSTRATE IMPROVED ABILITY TO PERFORM SIT TO/FROM STAND TRANSFERS TO REDUCE THE RISK OF SKIN BREAKDOWN AND REDUCE FALL RISK FROM SBA TO INDEPENDENT WITHIN 2 WEEKS PT LTG: PATIENT WILL MAINTAIN OXYGEN SATURATION WITHIN PHYSICIAN ORDERED PARAMETERS THROUGHOUT EPISODE OF CARE. PT GOAL: PATIENT WILL DEMONSTRATE UNDERSTANDING OF PAIN MANAGEMENT TECHNIQUES EVIDENCED BY REDUCED PAIN IN LEFT KNEE FROM 8/10 TO 2/10 WITHIN 4 WEEKS PT GOAL: PATIENT WILL DEMONSTRATE OPTIMAL OUTCOMES, INCLUDING INCREASED ROM AND STRENGTH AND FUNCTIONAL MOBILITY FOLLOWING KNEE SURGERY BY END OF EPISODE. PT GOAL: THE PATIENT WILL NOT DEMONSTRATE ANY WOUND COMPLICATIONS DURING THE EPISODE OF CARE. PT LTG: PATIENT/CAREGIVER WILL DEMONSTRATE ADHERENCE TO FALL REDUCTION SELF-MANAGEMENT AND REDUCING FALL RISK FACTORS TO MINIMIZE FALL RISK BY END OF EPISODE. Goal Provider Goal - PATIENT / CAREGIVER WITHIN 1 VISIT WILL BE ABLE TO VERBALIZE / DEMONSTRATE UNDERSTANDING OF NEEDED ADAPTIVE EQUIPMENT FOR SHOWERING AND SAFE TRANSPORT OF ITEMS IN KITCHEN. Reason for Visit INDEPENDENT IN THE HOME Encounters Start Date/Time End Date/Time Encounter Type Admission Type Attending [facility] Care Department Encounter ID Discharge Date Discharge Status Discharge Condition Discharge Reason Percent Goals Met 2023-12-23 00:00:00 2024-02-20 00:00:00 Outpatient NEW ADMISSION ELIDA PRIEST [facility] [id number] 2024-02-20 00:00:00 DISCHARGE TO HOME OR SELF CARE INDEPENDEN T IN THE HOME HH OR PAL- GOALS MET 86.67
[2024-05-17 10:55] LABS: MANUAL DIFF FLAG NO
[2024-05-17 11:02] LABS: Basophils Percent Auto 0.4 % (0-2); Eosinophils Absolute Auto 0.1 X10*3/uL (0.0-0.4); Eosinophils Percent Auto 1.9 % (0-4); Hematocrit 33.7 % (37.0-47.0); Hemoglobin 11.2 g/dl (12.0-16.0); Imm Gran Abs Auto 0.02 X10*3/uL (0.00-0.03); Imm Gran Pct Auto 0.3 % (0.0-0.4); Lymphocytes Absolute Auto 1.5 X10*3/uL (1.2-4.9); Mean Corpuscular HGB Conc 33.2 g/dl (31.0-35.0); Mean Corpuscular Hemoglobin 31.2 pg (27.0-33.0); Mean Corpuscular Volume 93.9 fL (80.0-98.0); Mean Platelet Volume 10.1 fL (9.4-12.3); Monocytes Absolute Auto 0.5 X10*3/uL (0.1-1.2); Monocytes Percent Auto 7.1 % (2-11); Neutrophils Absolute Auto 4.7 x10*3/uL (2.0-8.3); Neutrophils Percent Auto 68.3 % (45-73); Platelet Count 251 X10*3/uL (160-400); Red Blood Count 3.59 X10*6/uL (4.20-5.50); Red Cell Distribution Width 13.6 % (11.0-16.0); White Blood Count 6.9 X10*3/uL (4.8-10.8)
[2024-05-17 11:31] LABS: Alanine Aminotransferase 19 U/L (0-31); Albumin Level 3.9 g/dL (3.5-5.0); Alkaline Phosphatase 109 U/L (39-117); Anion Gap 10 (12-20); Aspartate Amino Transferase 23 U/L (5-31); Bilirubin Total 0.5 mg/dL (0.0-1.0); Blood Urea Nitrogen 13 mg/dL (9-16); Calcium 9.4 mg/dL (8.4-10.2); Carbon Dioxide 28 mmol/L (22-29); Chloride 110 mmol/L (96-108); Cholesterol 167 mg/dL (<200); Estimated Glomerular Filt Rate > 60; Glucose Fasting 100 mg/dL (60-99); HDL Cholesterol 43 mg/dL (>40); LDL Cholesterol Calculated 95 mg/dL (<100); Sodium 144 mmol/L (135-145); Triglycerides 148 mg/dL (<150)
[2024-05-17 11:47] LABS: Free T4 (Free Thyroxine) 0.86 ng/dL (0.71-1.85); Thyroid Stimulating Hormone 2.08 uIU/mL (0.32-4.0); Vitamin D 25-OH Total 56.8 ng/mL (>30)
[2024-05-17 12:11] LABS: Folate 6.3 ng/mL (> or = 4.0); Vitamin B12 235 pg/mL (200-900)
== END 2024-05-17 08:41 | disposition home or self-care (01) ==
LOC: HO.HMGCLDS 08:40
PROVIDERS: PCP Internal Medicine; Visit Provider Internal Medicine
DX: E78.00 Pure hypercholesterolemia, unspecified (principal); E53.8 Deficiency of other specified B group vitamins; D64.9 Anemia, unspecified; E03.9 Hypothyroidism, unspecified; E55.9 Vitamin D deficiency, unspecified
CPT/HCPCS: 36415; 80053; 80061; 82306; 82607; 82746; 84439; 84443; 85025

== ENCOUNTER 2024-06-14 02:49 | Emergency (ER) | payer MEDICARE, SELFPAY ==
[2024-06-14] VITALS (9 sets, daily range): BP systolic 130–178; BP diastolic 53–70; PULSE 73–84; RESP 14–18; TEMP 36.4–36.8; O2SAT 92–97; BMI 29.2
--- NOTE | ~2024-06-14 | CT_ITS ---
CLINICAL HISTORY: Severe headache, left facial droop, R O stroke CT head without contrast Comparison: CT/SR - CT HEAD/BRAIN WO IV CON - 04/07/24 13:54 EST Findings: There is subarachnoid hemorrhage in the left side of the basilar cisterns, left sylvian fissure, left cerebral sulci, and along the left cerebellar hemisphere. There is an intraparenchymal hematoma within the medial left temporal lobe measuring 1.3 cm. There is no midline shift. Ventricles are within normal limits in size. There is an unchanged chronic lacunar infarct within the right caudate head. There is generalized cerebral atrophy. The visualized portions of the orbits, paranasal sinuses, and mastoids are unremarkable. No fractures are identified. IMPRESSION: 1. Subarachnoid hemorrhage as above. 2. 1.3 cm intraparenchymal hematoma in the medial left temporal lobe. This document has been electronically signed by: Lul Dunn MD on 06/14/2024 03:15:57
--- OUTSIDE RECORDS SUMMARY | 2024-06-14 02:51 | XMS_ITS | Clinical Summary ---
Author Organization Unknown Care Team Providers Care Cnc Maintenance Technician Name Role Phone CECILIA VEGA, HALI Unavailable Unavailable ZAYDA PT, ELIDA Unavailable Unavailable SPAFFOSIRIS OT, PAM Unavailable Unavailable DOMINIQUE RN, TREV Unavailable Unavailab temo RIOS FRENCH BINDER, PRASAD Unavailable Vonnie edwin NORIEGA APPLIANCE SALES ASSOCIATE, WILLY Unavailable Unavailable Payers Payer Name Policy Type Policy Number Effective Date Expira tion Date MEDICARE.[id number] Problems Condition Name Condition Details Condition Category [...] KNEE JOINT, BILATERAL Active 12-22 00:00: 00 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) USE OF ASPIRIN Active 12-22 00:00: 00 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) USE OF OPIATE ANALGESIC Active 12-22 [...] 50 mg tablet 12-17 00:00: 00 Yes [id number] BETA CRESENCIO 1 tablet DAILY 1 tablet DAILY (route: oral) Med Classific ation: Cardiovas cular Therapy Agents irbesartan 300 mg tablet 12-05 00:00: 00 Yes [id number] HTN 1 tablet DAILY 1 tablet DAILY (route: oral) Med Classific ation: Cardiovas cular Therapy Agents lorazepam 0.5 mg tablet 11-21 00:00: 00 Yes [id number] ANXIETY 1 tablet BEDTIME 1 tablet BEDTIME (route: oral) Med Classific ation: Central Nervous System Agents amlodipine 5 mg tablet 12-22 00:00: 00 01-13 00:00 :00 No [id number] HTN 1 tablet DAILY 1 tablet DAILY (route: oral) Med Classific ation: Cardiovas cular Therapy Agents anastrozole 1 mg tablet 12-22 00:00: 00 Yes [id number] HX OF BREAST CANCER 1 tablet DAILY 1 tablet DAILY (route: oral) Med Classific ation: Antineopl astics atorvastati n 80 mg tablet 12-22 00:00: 00 Yes [id number] HLD 1 tablet BEDTIME 1 tablet BEDTIME (route: oral) Med Classific ation: Cardiovas cular Therapy Agents celecoxib 100 mg capsule 12-22 00:00: 00 12-25 23:59 :00 No [id number] NSAID 1 capsule 2 TIMES DAILY 1 capsule 2 TIMES DAILY (route: oral) Med Classific ation: Analgesic , Anti-infl ammatory or Antipyret ic ferrous sulfate 325 mg (65 mg iron) tablet 12-22 00:00: 00 12-25 23:59 :00 No [id number] SUPPLEMENT 1 tablet DAILY 1 tablet DAILY (route: oral) Med Classific ation: Electroly te Balance-N utritiona l Products levothyroxi ne 50 mcg capsule 12-22 00:00: 00 Yes [id number] THYROID 1 capsule DAILY 1 capsule DAILY (route: oral) Med Classific ation: Endocrine loratadine 10 mg tablet 12-22 00:00: 00 12-25 23:59 :00 No [id number] SEASONAL ALLERGIES 1 tablet DAILY 1 tablet DAILY (route: oral) Med Classific ation: Respirato ry Therapy Agents Miralax 17 gram/dose oral powder 12-22 00:00: 00 Yes [id number] CONSTIPATIO N 17 gram DAILY 17 gram DAILY (route: oral) Med Classific ation: Gastroint estinal Therapy Agents mirtazapine 15 mg tablet 12-22 00:00: 00 12-24 12:01 :09.3 23 No [id number] DEPRESSION 1 tablet BEDTIME 1 tablet BEDTIME (route: oral) Med Classific ation: Central Nervous System Agents omeprazole 40 mg capsule,del ayed release 12-22 00:00: 00 Yes [id number] DYSPEPSIA 1 capsule DAILY 1 capsule DAILY (route: oral) Med Classific ation: Gastroint estinal Therapy Agents oxcarbazepi ne 300 mg tablet 12-22 00:00: 00 01-13 00:00 :00 No [id number] ANTICONVULS ANT 1.5 tablet BEDTIME 1.5 tablet BEDTIME (route: oral) Med Classific ation: Central Nervous System Agents oxycodone 10 mg tablet 12-22 00:00: 00 12-25 23:59 :00 No [id number] PAIN 1 tablet EVERY 4 HOURS 1 tablet EVERY 4 HOURS (route: oral) Med Classific ation: Analgesic , Anti-infl ammatory or Antipyret ic trazodone 100 mg tablet 12-22 00:00: 00 Yes [id number] INSOMNIA 1 tablet BEDTIME 1 tablet BEDTIME (route: oral) Med Classific ation: Central Nervous System Agents Tylenol Extra Strength 500 mg tablet 12-22 00:00: 00 Yes [id number] PAIN 2 tablet 3 TIMES DAILY 2 tablet 3 TIMES DAILY (route: oral) Med Classific ation: Analgesic , Anti-infl ammatory or Antipyret ic aspirin 325 mg tablet 12-24 00:00: 00 01-05 23:59 :00 No [id number] blood thinner 1 tablet 2 TIMES DAILY 1 tablet 2 TIMES DAILY (route: oral) Med Classific ation: Analgesic , Anti-infl ammatory or Antipyret ic oxycodone 5 mg tablet 12-25 00:00: 00 01-13 00:00 :00 No [id number] SEVERE PAIN 1 tablet EVERY 4 HOURS 1 tablet EVERY 4 HOURS (route: oral) Med Classific ation: Analgesic , Anti-infl ammatory or Antipyret ic amlodipine 5 mg tablet 01-08 00:00: 00 01-08 23:59 :00 No [id number] HIGH BLOOD PRESSURE 1 tablet DAILY 1 tablet DAILY (route: oral) Med Classific ation: Cardiovas cular Therapy Agents Colace 100 mg capsule 01-08 00:00: 00 01-09 23:59 :00 No [id number] CONSTIPATIO N 2 capsule BEDTIME 2 capsule BEDTIME (route: oral) Med Classific ation: Gastroint estinal Therapy Agents Colace 100 mg capsule 01-10 00:00: 00 Yes [id number] CONSTIPATIO N 2 capsule BEDTIME 2 capsule BEDTIME (route: oral) Med Classific ation: Gastroint estinal Therapy Agents Metamucil [facility] Fiber 3.4 gram/5.8 gram oral powder 14 00:00: 00 Yes [id number] CONSTIPATIO N 5.8 gram DAILY 5.8 gram DAILY (route: oral) Med Classific ation: Gastroint estinal Therapy Agents amlodipine 10 mg tablet 18 00:00: 00 Yes [id number] HTN 10 mg DAILY 10 mg DAILY (route: oral) Med Classific ation: Cardiovas cular Therapy Agents aspirin 81 mg chewable tablet 01-13 00:00: 00 Yes [id number] NSAID 81 mg DAILY 81 mg DAILY (route: oral) Med Classific ation: Hematolog ical Agents Keppra 500 mg tablet 01-13 00:00: 00 02-19 23:59 :00 No [id number] TREATS SEIZURE DISORDER 500 mg 2 TIMES DAILY 500 mg 2 TIMES DAILY (route: oral) Med Classific ation: Central Nervous System Agents Percocet 5 mg-325 mg tablet 01-13 00:00: 00 Yes [id number] PAIN 5-35 mg EVERY 4 HOURS 5-35 mg EVERY 4 HOURS (route: oral) Med Classific ation: Analgesic , Anti-infl ammatory or Antipyret ic Senna Lax 8.6 mg tablet 01-13 00:00: 00 Yes [id number] STOOL SOFTNER 1 tablet BEDTIME 1 tablet BEDTIME (route: oral) Med Classific ation: Gastroint estinal Therapy Agents mirtazapine 15 mg tablet 02-19 00:00: 00 Yes [id number] IMPROVES SLEEP 1 tablet BEDTIME 1 tablet BEDTIME (route: oral) Med Classific ation: Central Nervous System Agents oxcarbazepi ne 300 mg tablet 02-19 00:00: 00 Yes [id number] SEIZURE DISORDER 1 tablet DAILY 1 tablet DAILY (route: oral) Med Classific ation: Central Nervous System Agents oxcarbazepi ne 300 mg tablet 02-19 00:00: 00 Yes [id number] SEIZURE DISORDER 1.5 tablet BEDTIME 1.5 tablet [...] ON ADMISSION AND PRN FOR RN TO ASSESS/FRENCH BINDER TO OBSERVE PATIENT, WITH NOTIFICATION TO THE [...] ON ADMISSION AND PRN FOR RN TO ASSESS/FRENCH BINDER TO OBSERVE PATIENT, WITH NOTIFICATION TO THE [...] TO EVALUATE, OBSERVE / ASSESS, AND MONITOR, APPLIANCE SALES ASSOCIATE TO OBSERVE AND MONITOR, PROVIDE SKILLED THERAPEUTIC INTERVENTION, ACTIVITY, EDUCATION, AND TRAINING TO ADDRESS; PT/APPLIANCE SALES ASSOCIATE TO PROVIDE GAIT TRAINING FOR IMPROVED MOBILITY AND /OR TO NORMALIZE GAIT PATTERN THERAPEUTIC EXERCISES AND ESTABLISHING A HOME EXERCISE PROGRAM (PT/APPLIANCE SALES ASSOCIATE) PT/APPLIANCE SALES ASSOCIATE TO PROVIDE STAIR TRAINING SIT TO/FROM STAND TRANSFERS (PT/APPLIANCE SALES ASSOCIATE) PT / APPLIANCE SALES ASSOCIATE TO MONITOR AND EDUCATE ON OXYGEN SATURATION DURING ADLS/IADLS, NOTIFY PHYSICIAN AND/OR THE RN CLINICAL ADVENTURE THERAPIST FOR PHYSICIAN NOTIFICATION AND IF O2 SATS BELOW PHYSICIAN ORDERED PARAMETERS AFTER 10 MIN OF REST PT / APPLIANCE SALES ASSOCIATE MAY EDUCATE ON PAIN MANAGEMENT CLINICALLY INDICATED, INCLUDING NON-PHARMACOLOGICAL PAIN REDUCTION TECHNIQUES AND USE OF CRYOTHERAPY UP TO 20 MIN AT A TIME FOR PAIN MANAGEMENT 4 TIMES PER DAY TO LEFT KNEE PT/APPLIANCE SALES ASSOCIATE TO TEACH KNEE REPLACEMENT SELF-MANAGEMENT PT / APPLIANCE SALES ASSOCIATE TO OBSERVE WOUND/INCISION AND/OR INTACT DRESSING ON LEFT KNEE AND REPORT EARLY SIGNS AND SYMPTOMS OF WOUND DETERIORATION, COMPLICATIONS, OR INFECTION TO PHYSICIAN AND/OR THE RN CLINICAL ADVENTURE THERAPIST FOR PHYSICIAN NOTIFICATION. PT/APPLIANCE SALES ASSOCIATE TO IDENTIFY FALL RISK FACTORS; EDUCATE THE PATIENT/CAREGIVER ON WAYS TO REDUCE FALL RISK FACTORS AND ESTABLISH HOME EXERCISE PROGRAM TO MINIMIZE FALL RISK. MAY TEACH THE PATIENT FLOOR RECOVERY WHEN CLINICALLY APPROPRIATE [code = AGENCY MAY PERFORM A RESUMPTION OF CARE VISIT FOLLOWING ANY HOSPITAL ADMISSION. PT TO EVALUATE, OBSERVE / ASSESS, AND MONITOR, APPLIANCE SALES ASSOCIATE TO OBSERVE AND MONITOR, PROVIDE SKILLED THERAPEUTIC INTERVENTION, ACTIVITY, EDUCATION, AND TRAINING TO ADDRESS; PT/APPLIANCE SALES ASSOCIATE TO PROVIDE GAIT TRAINING FOR IMPROVED MOBILITY AND /OR TO NORMALIZE GAIT PATTERN THERAPEUTIC EXERCISES AND ESTABLISHING A HOME EXERCISE PROGRAM (PT/APPLIANCE SALES ASSOCIATE) PT/APPLIANCE SALES ASSOCIATE TO PROVIDE STAIR TRAINING SIT TO/FROM STAND TRANSFERS (PT/APPLIANCE SALES ASSOCIATE) PT / APPLIANCE SALES ASSOCIATE TO MONITOR AND EDUCATE ON OXYGEN SATURATION DURING ADLS/IADLS, NOTIFY PHYSICIAN AND/OR THE RN CLINICAL ADVENTURE THERAPIST FOR PHYSICIAN NOTIFICATION AND IF O2 SATS BELOW PHYSICIAN ORDERED PARAMETERS AFTER 10 MIN OF REST PT / APPLIANCE SALES ASSOCIATE MAY EDUCATE ON PAIN MANAGEMENT CLINICALLY INDICATED, INCLUDING NON-PHARMACOLOGICAL PAIN REDUCTION TECHNIQUES AND USE OF CRYOTHERAPY UP TO 20 MIN AT A TIME FOR PAIN MANAGEMENT 4 TIMES PER DAY TO LEFT KNEE PT/APPLIANCE SALES ASSOCIATE TO TEACH KNEE REPLACEMENT SELF-MANAGEMENT PT / APPLIANCE SALES ASSOCIATE TO OBSERVE WOUND/INCISION AND/OR INTACT DRESSING ON LEFT KNEE AND REPORT EARLY SIGNS AND SYMPTOMS OF WOUND DETERIORATION, COMPLICATIONS, OR INFECTION TO PHYSICIAN AND/OR THE RN CLINICAL ADVENTURE THERAPIST FOR PHYSICIAN NOTIFICATION. PT/APPLIANCE SALES ASSOCIATE TO IDENTIFY FALL RISK FACTORS; EDUCATE THE [...] End Date/Time Encounter Type Admission Type Attending [facility] Care Department Encounter ID Discharge Date Discharge Status Discharge Condition Discharge Reason Percent Goals Met 2023-12-23 00:00:00 2024-02-20 00:00:00 Outpatient NEW ADMISSION ELIDA PRIEST [facility] [id number] 2024-02-20 00:00:00 DISCHARGE TO HOME OR SELF CARE INDEPENDEN T IN THE HOME HH OR PAL- GOALS MET 86.67
--- NOTE | 2024-06-14 02:53 | ED.NEUROSD ---
HPI - Neuro Symptoms/Deficit General Chief Complaint: Stroke Stated Complaint: Head/Neck pain Time Seen by Provider: 06/14/24 02:53 Source: patient and EMS Mode of arrival: EMS Limitations: no limitations History of Present Illness ED Provider: Dr. Huang Cook HPI Narrative: 83-year-old female with pertinent history of seizure disorder, hypertension, history of hemorrhagic CVA in 2000, hypothyroidism, history of breast cancer status post lumpectomy in 2022, moyamoya disease who presents emergency department for evaluation severe, sudden onset of headache which woke her up from sleep at 01:30 hours. Patient was transported to the emergency department as a stroke alert secondary to facial droop. I did evaluate the patient on the EMS stretcher. Patient was complaining of a severe headache in the frontal area of her head with associated photophobia. She states she was also feeling very anxious. She was oriented to person, month and was able to tell me her age. Patient's neurologic exam did reveal left facial droop, it is unclear if this is new or old. Patient was brought directly radiology for CT scan of the head without IV contrast. Related Data Home Medications ?Medication ?Instructions ?Recorded ?Confirmed oxycodone-acetaminophen 5 mg-325 1 tab PO Q4-6H PRN Pain 11/23/23 04/09/24 mg tablet (Percocet) atorvastatin 80 mg tablet 80 mg PO BEDTIME 12/06/23 04/09/24 lorazepam 0.5 mg tablet 0.5 mg PO BEDTIME 04/07/24 04/09/24 oxcarbazepine 300 mg tablet 300 mg PO DAILY@0900 04/07/24 04/09/24 oxcarbazepine 300 mg tablet 450 mg PO BEDTIME 04/07/24 04/09/24 polyethylene glycol 3350 17 17 g PO DAILY PRN Constipation 04/07/24 04/09/24 gram/dose oral powder (Miralax) Previous Rx's ?Medication ?Instructions ?Recorded walker #1 ea 10/31/23 acetaminophen 325 mg tablet 650 mg (2 x 325 mg) PO Q6H PRN 12/09/23 Pain, Mild (Pain Scale 1-3), fever or headache 30 days #240 tabs docusate sodium 100 mg capsule 100 mg PO DAILY PRN Constipation 12/09/23 30 days #30 caps atenolol 50 mg tablet 50 mg PO DAILY #90 tabs 12/11/23 irbesartan 300 mg tablet 300 mg PO DAILY #90 tabs 01/31/24 levothyroxine 50 mcg tablet 50 mcg PO DAILY@0600 #90 tabs 02/28/24 trazodone 100 mg tablet 100 mg PO BEDTIME PRN sleep 90 04/02/24 days #90 tabs amlodipine 10 mg tablet 10 mg PO DAILY 90 days #90 tabs 04/08/24 lorazepam 0.5 mg tablet 0.5 mg PO BID PRN anxiety 30 days 04/24/24 #60 tabs mirtazapine 15 mg tablet 15 mg PO BEDTIME 90 days #90 tabs 04/24/24 Allergies Allergy/AdvReac Type Severity Reaction Status Date / Time phenytoin [Dilantin] Allergy Severe Hives Verified 06/14/24 03:21 sertraline [SERTRALINE] Allergy Severe DROPPED Verified 06/14/24 03:21 SODIUM LEVEL, BP increase Sodium drop aspirin [ASPIRIN] Allergy Intermediate RISK OF Verified 06/14/24 03:21 BLEDING NSAIDS (Non-Steroidal Allergy Unknown risk of Verified 06/14/24 03:21 Anti-Inflamma bleeding Review of Systems Review of Systems: Yes all other systems are reviewed and are negative [facility] Past Medical History Medical History Seasonal allergies Osteopenia Constipation Acquired hypothyroidism Overweight (BMI 25.0-29.9) Cataract Seizures Stroke (~2000) Ash ash disease (~2000) Urinary frequency Allergic rhinitis Degenerative disc disease, cervical Neck pain Depression Anxiety Insomnia Epilepsy Obesity (BMI 30-39.9) Osteoarthritis Benign essential hypertension Pure hypercholesterolemia Rib pain on right side Left shoulder pain Recurrent dry cough Pain of right scapula Right-sided thoracic back pain Surgical History History of left knee replacement H/O breast surgery Hx of colonoscopy History of kidney surgery Status post cervical disc replacement History of knee replacement procedure of right knee Hx of knee surgery Family History Family History Father Chronic mental illness Mother Hypertension Other Mental health problem Social History Social History Household Members: None Housing: House Are you a primary healthcare sales representative to a significant other at home: No Do you presently have visiting nurse or other home services: Yes Alcohol intake: current Alcohol intake frequency: holidays/special occasions only Alcohol type: beer Comment: not documented previous shift Patient Tobacco Use Status: Former Tobacco user Tobacco use type: Cigarette Years Smoked: 10 e-Cigarette/Vaping Use: Never Used Second Hand Smoke Exposure: No Advance Directives Date on File: 05/23/23 service: No Current occupational status: retired Cognitive needs: Yes (Walker) Hearing needs: No Vision needs: No Physical Exam Vital Signs: Vital Signs: Last Vital Signs Temp 97.5 F 06/14/24 03:19 Pulse 82 06/14/24 03:24 Resp 14 06/14/24 03:24 BP 153/64 H 06/14/24 03:24 Pulse Ox 93 06/14/24 03:24 O2 Del Method Room Air 06/14/24 03:24 BMI result Body Mass Index 29.2 Exam: General: Awake, alert , anxious, in distress secondary to her headache pain Head: Normocephalic, atraumatic EENT: PERRL, Lids normal, sclera normal, conjunctiva normal, nose normal , ears normal, throat without erythema or exudates Neck: Supple, no adenopathy Lung: breath sounds symmetric, no wheezing, rales or rhonchi Chest: symmetric movement, nontender Heart: regular rate and rhythm, normal S1, S2 no murmurs or rubs Abdomen: soft, non-tender, nondistended, normal bowel sounds Back: no vertebral tenderness, no CVAT Extremities: no deformities, moves all extremities symmetrically Neuro: Awake, alert, oriented, normal speech, cranial nerves with left facial droop otherwise intact, moves all extremities symmetrically Psych: Pleasant, cooperative Medications Administered Discontinued Medications Generic Name Dose Route Start Last Admin Trade Name Freq PRN Reason Stop Dose Admin Morphine Sulfate 4 mg 06/14/24 03:06 06/14/24 03:12 Morphine Sulfate 4 Mg/Ml Cartridge IVPUSH 06/14/24 03:07 4 mg ONCE STA Administration Protocol Morphine Sulfate 4 mg 06/14/24 03:23 06/14/24 03:28 Morphine Sulfate 4 Mg/Ml Cartridge IVPUSH 06/14/24 03:24 4 mg ONCE STA Administration Protocol Medical Decision Making Medical Decision Making [facility] Narrative: 83-year-old female with pertinent history of seizure disorder, hypertension, history of hemorrhagic CVA in 2000, hypothyroidism, history of breast cancer status post lumpectomy in 2022, moyamoya disease who presents emergency department for evaluation severe, sudden onset of headache which woke her up from sleep at 01:30 hours. Patient was transported to the emergency department as a stroke alert secondary to facial droop. I did evaluate the patient on the EMS stretcher. Patient was complaining of a severe frontal headache, greater than 10/10 with associated photophobia. She states she was also feeling very anxious. She was oriented to person, month and was able to tell me her age. Patient's neurologic exam did reveal left facial droop, it is unclear if this is new or old. NIH stroke scale was 1. Patient was brought directly radiology for CT scan of the head without IV contrast. Differential diagnosis: ?Includes but is not limited to stroke, TIA, intracranial hemorrhage, migraine headache, anxiety, anemia, electrolyte abnormalities Course: 03:[address] scan is consistent with a subarachnoid hemorrhage. Patient was treated with morphine 4 mg IV x2 and Zofran 4 mg IV. 03:40 I did discuss the patient's presentation with the neurology float remover at [facility], Dr. Meza. She recommended nicardipine drip to keep the patient's systolic blood pressure at 140 or lower. Patient did have elevated blood pressures on initial presentation but blood pressure improved with morphine IV. There were no beds in the neuro critical care unit. 04:08 I did discuss the patient with the medical float remover at [facility], in the patient was accepted as an ED to ICU transfer. Patient's headache pain is now 8/10 and she was given a 3rd dose of morphine 4 mg IV. Systolic blood pressure is below 140 and Narcan drip was not started. Patient will be transferred by ALS ambulance to [facility] for further treatment. Admission/Observation Consideration of admission/observation: Escalation of care including admission/observation considered (Yes) Consult Healthcare Provider Management of the patient was discussed with: Compliance Lead Lab Data [facility] Lab Attestation statement: I reviewed the patient's lab results. 06/14/24 03:15 06/14/24 03:15 Labs: Lab Results 06/14/24 06/14/24 Range/Units 02:56 03:15 WBC 11.0 H (4.8-10.8) X10*3/uL RBC 3.58 L (4.20-5.50) X10*6/uL Hgb 11.1 L (12.0-16.0) g/dl Hct 33.3 L (37.0-47.0) % MCV 93.0 (80.0-98.0) fL MCH 31.0 (27.0-33.0) pg MCHC 33.3 (31.0-35.0) g/dl RDW 12.7 (11.0-16.0) % Plt Count 254 (160-400) X10*3/uL MPV 9.4 (9.4-12.3) fL Immature Gran % (Auto) 0.4 (0.0-0.4) % Neut % (Auto) 72.9 (45-73) % Lymph % (Auto) 18.3 L (20-40) % [place] % (Auto) 6.8 (2-11) % Eos % (Auto) 1.3 (0-4) % Baso % (Auto) 0.3 (0-2) % Lymph # (Auto) 2.0 (1.2-4.9) X10*3/uL [place] # (Auto) 0.8 (0.1-1.2) X10*3/uL Eos # (Auto) 0.1 (0.0-0.4) X10*3/uL Baso # (Auto) 0.0 (0.0-0.2) X10*3/uL Abs Immat Gran (auto) 0.04 H (0.00-0.03) X10*3/uL Absolute Neuts (auto) 8.0 (2.0-8.3) x10*3/uL Absolute Nucleated RBC 0.000 (0.0-0.012) X10*3/uL Nucleated RBC % (auto) 0.0 (0.0-0.2) /100WBC POC Glucose 117 H (60-115) mg/dL Independent Interpretation I performed an independent interpretation of an: EKG and CT Scan Interpretation: My interpretation patient's CT scan is as follows: Left subarachnoid hemorrhage with no midline shift. My interpretation patient's 12 EKG done at 03:11 hours is as follows: Sinus rhythm with a rate of 80, no ST segment elevation, no ST segment depression, no significant T-wave abnormalities, no PACs, no PVCs. Radiology Impression Discussion of test interpretation with radiology: I have reviewed the radiologist's reading. Radiologist Impression: CT head without contrast Comparison: CT/SR - CT HEAD/BRAIN WO IV CON - 04/07/24 13:54 EST Findings: There is subarachnoid hemorrhage in the left side of the basilar cisterns, left sylvian fissure, left cerebral sulci, and along the left cerebellar hemisphere. There is an intraparenchymal hematoma within the medial left temporal lobe measuring 1.3 cm. There is no midline shift. Ventricles are within normal limits in size. There is an unchanged chronic lacunar infarct within the right caudate head. There is generalized cerebral atrophy. The visualized portions of the orbits, paranasal sinuses, and mastoids are unremarkable. No fractures are identified. IMPRESSION: 1. Subarachnoid hemorrhage as above. 2. 1.3 cm intraparenchymal hematoma in the medial left temporal lobe. This document has been electronically signed by: Lul Dunn MD on 06/14/2024 03:15:57 NIH Stroke Scale Internal: Initial- Upon Arrival Level of Consciousness: Alert Level of Consciousness Questions: Answers both questions correctly Level of Consciousness Commands: Performs both tasks correctly Best Gaze: Normal Visual: No visual loss Facial Palsy: Minor paralyis Motor Arm (Right): No drift Motor Arm (Left): No drift Motor Leg (Right): No drift Motor Leg (Left): No drift Limb Ataxia: Absent Sensory: Normal Best Language: No aphasia Dysarthia: Normal Extinction and Inattention: No abnormality Score: 1 Critical Care Time Critical Care Time Critical Care Time: Yes Total Critical Care Time: 80 Attestation: Critical Care: The patient was critically ill with a high probability of imminent or life threatening deterioration. I spent greater than 30 minutes of discontinuous time evaluating the patient,delivering critical care at the bedside, discussing and evaluating pertinent data with consultants. Critical care time does not include time spent performing separately billable procedures or teaching. Total time spent performing critical care was 80 minutes. Discharge Plan Discharge Clinical Impression: Acute spontaneous subarachnoid intracranial hemorrhage Patient Disposition: [facility] Transfer Details: ED to [facility] medical ICU, accepting attending is Dr. Astorga Prescriptions: No Action (DME) walker Misc See Rx Instructions .ROUTE .MEDSUPPLY Qty: 1 0RF Rx Instructions: Folding front wheeled walker atenolol 50 mg tablet 50 mg PO DAILY Qty: 90 3RF irbesartan 300 mg tablet 300 mg PO DAILY Qty: 90 3RF levothyroxine 50 mcg tablet 50 mcg PO DAILY@0600 Qty: 90 3RF Rx Instructions: Take on an empty stomach, first thing in the morning, with water. Do not eat or drink anything else for 30 minutes afterwards trazodone 100 mg tablet 100 mg PO BEDTIME PRN (Reason: sleep) 90 Days Qty: 90 0RF amlodipine 10 mg tablet 10 mg PO DAILY 90 Days Qty: 90 1RF Protocol: Hold for SBP< HOLD for SBP < : 90 lorazepam 0.5 mg tablet 0.5 mg PO BID PRN (Reason: anxiety) 30 Days Qty: 60 0RF mirtazapine 15 mg tablet 15 mg PO BEDTIME 90 Days Qty: 90 0RF oxcarbazepine 300 mg tablet 450 mg PO BEDTIME lorazepam 0.5 mg tablet 0.5 mg PO BEDTIME polyethylene glycol 3350 [Miralax] 17 gram/dose Powder 17 g PO DAILY PRN (Reason: Constipation) oxcarbazepine 300 mg tablet 300 mg PO DAILY@0900 oxycodone-acetaminophen [Percocet] 5-325 mg Tablet 1 tab PO Q4-6H PRN (Reason: Pain) atorvastatin 80 mg tablet 80 mg PO BEDTIME acetaminophen 325 mg Tablet 650 mg PO Q6H PRN (Reason: Pain, Mild (Pain Scale 1-3), fever or headache) 30 Days Qty: 240 0RF docusate sodium 100 mg Capsule 100 mg PO DAILY PRN (Reason: Constipation) 30 Days Qty: 30 0RF Print Language: French
--- NOTE | 2024-06-14 02:54 | ECG_ITS ---
Test Reason : stroke alert Blood Pressure : */* mmHG Vent. Rate : 80 BPM Atrial Rate : 84 BPM P-R Int : * ms QRS Dur : 78 ms QT Int : 370 ms P-R-T Axes : * 5 54 degrees QTcB Int : 426 ms Sinus rhythm Normal ECG When compared with ECG of 07-Apr-2024 13:14, No significant changes seen Referred By: Huang Cook Electronically Signed By: RAH COLINDRES MD
[2024-06-14 03:02] LABS: Glucose, Whole Blood 117 mg/dL (60-115)
[2024-06-14] MEDS: Morphine Sulfate 4 MG/ML CARTRIDGE IVPUSH ×3 (03:12→04:38)
[2024-06-14 03:21] LABS: Basophils Percent Auto 0.3 % (0-2); Eosinophils Absolute Auto 0.1 X10*3/uL (0.0-0.4); Eosinophils Percent Auto 1.3 % (0-4); Hematocrit 33.3 % (37.0-47.0); Hemoglobin 11.1 g/dl (12.0-16.0); Imm Gran Abs Auto 0.04 X10*3/uL (0.00-0.03); Imm Gran Pct Auto 0.4 % (0.0-0.4); Lymphocytes Percent Auto 18.3 % (20-40); MANUAL DIFF FLAG NO; Mean Corpuscular HGB Conc 33.3 g/dl (31.0-35.0); Mean Platelet Volume 9.4 fL (9.4-12.3); Monocytes Absolute Auto 0.8 X10*3/uL (0.1-1.2); Monocytes Percent Auto 6.8 % (2-11); Neutrophils Percent Auto 72.9 % (45-73); Platelet Count 254 X10*3/uL (160-400); Red Blood Count 3.58 X10*6/uL (4.20-5.50); Red Cell Distribution Width 12.7 % (11.0-16.0)
[2024-06-14 03:32] LABS: Prothrombin Time 11.9 SEC (10.9-12.4)
[2024-06-14 03:34] LABS: Anion Gap 14 (12-20); Blood Urea Nitrogen 21 mg/dL (9-16); Calcium 9.5 mg/dL (8.4-10.2); Carbon Dioxide 24 mmol/L (22-29); Chloride 109 mmol/L (96-108); Cholesterol 174 mg/dL (<200); Creatinine Clr Calc Pharmacy 53.4; Estimated Glomerular Filt Rate > 60; Glucose Random 118 mg/dL (60-115); HDL Cholesterol 44 mg/dL (>40); LDL Cholesterol Calculated 92 mg/dL (<100); Partial Thromboplastin Time 28.6 SEC (26.0-36.8); Potassium 4.3 mmol/L (3.3-5.1); Sodium 143 mmol/L (135-145); Triglycerides 193 mg/dL (<150)
[2024-06-14 03:38] LABS: Stroke Lab Use COMPLETE
[2024-06-14] MEDS: ondansetron HCL 4 MG/2 ML VIAL IVPUSH (03:47)
--- OUTSIDE RECORDS SUMMARY | 2024-06-14 04:37 | XMS_ITS | Clinical Summary ---
Author Organization Unknown Care Team Providers Care [employer] Tunnel Elastic Operator Name Role Phone CECILIA VEGA, HALI Unavailable Unavailable ZAYDA PT, ELIDA Unavailable Unavailable SPAFFOSIRIS OT, PAM Unavailable Unavailable DOMINIQUE RN, TREV Unavailable Unavailab temo RIOS CRUMB PACKER, PRASAD Unavailable Vonnie edwin NORIEGA BULK TANK DRIVER, WILLY Unavailable Unavailable Payers Payer Name Policy Type Policy Number Effective Date Expira tion Date MEDICARE.NGS.PDGM [id number] Problems Condition Name Condition Details Condition Category [...] KNEE JOINT, BILATERAL Active 12-22 00:00: 00 PARTY COORDINATOR (CURRENT) USE OF ASPIRIN Active 12-22 00:00: 00 PARTY COORDINATOR (CURRENT) USE OF OPIATE ANALGESIC Active 12-22 [...] 50 mg tablet 12-17 00:00: 00 Yes [id number] BETA CRESENCIO 1 tablet DAILY 1 tablet DAILY (route: oral) Med Classific ation: Cardiovas cular Therapy Agents irbesartan 300 mg tablet 12-05 00:00: 00 Yes [id number] HTN 1 tablet DAILY 1 tablet DAILY (route: oral) Med Classific ation: Cardiovas cular Therapy Agents lorazepam 0.5 mg tablet 11-21 00:00: 00 Yes [id number] ANXIETY 1 tablet BEDTIME 1 tablet BEDTIME (route: oral) Med Classific ation: Central Nervous System Agents amlodipine 5 mg tablet 12-22 00:00: 00 01-13 00:00 :00 No [id number] HTN 1 tablet DAILY 1 tablet DAILY (route: oral) Med Classific ation: Cardiovas cular Therapy Agents anastrozole 1 mg tablet 12-22 00:00: 00 Yes [id number] HX OF BREAST CANCER 1 tablet DAILY 1 tablet DAILY (route: oral) Med Classific ation: Antineopl astics atorvastati n 80 mg tablet 12-22 00:00: 00 Yes [id number] HLD 1 tablet BEDTIME 1 tablet BEDTIME (route: oral) Med Classific ation: Cardiovas cular Therapy Agents celecoxib 100 mg capsule 12-22 00:00: 00 12-25 23:59 :00 No [id number] NSAID 1 capsule 2 TIMES DAILY 1 capsule 2 TIMES DAILY (route: oral) Med Classific ation: Analgesic , Anti-infl ammatory or Antipyret ic ferrous sulfate 325 mg (65 mg iron) tablet 12-22 00:00: 00 12-25 23:59 :00 No [id number] SUPPLEMENT 1 tablet DAILY 1 tablet DAILY (route: oral) Med Classific ation: Electroly te Balance-N utritiona l Products levothyroxi ne 50 mcg capsule 12-22 00:00: 00 Yes [id number] THYROID 1 capsule DAILY 1 capsule DAILY (route: oral) Med Classific ation: Endocrine loratadine 10 mg tablet 12-22 00:00: 00 12-25 23:59 :00 No [id number] SEASONAL ALLERGIES 1 tablet DAILY 1 tablet DAILY (route: oral) Med Classific ation: Respirato ry Therapy Agents Miralax 17 gram/dose oral powder 12-22 00:00: 00 Yes [id number] CONSTIPATIO N 17 gram DAILY 17 gram DAILY (route: oral) Med Classific ation: Gastroint estinal Therapy Agents mirtazapine 15 mg tablet 12-22 00:00: 00 12-24 12:01 :09.3 23 No [id number] DEPRESSION 1 tablet BEDTIME 1 tablet BEDTIME (route: oral) Med Classific ation: Central Nervous System Agents omeprazole 40 mg capsule,del ayed release 12-22 00:00: 00 Yes [id number] DYSPEPSIA 1 capsule DAILY 1 capsule DAILY (route: oral) Med Classific ation: Gastroint estinal Therapy Agents oxcarbazepi ne 300 mg tablet 12-22 00:00: 00 01-13 00:00 :00 No [id number] ANTICONVULS ANT 1.5 tablet BEDTIME 1.5 tablet BEDTIME (route: oral) Med Classific ation: Central Nervous System Agents oxycodone 10 mg tablet 12-22 00:00: 00 12-25 23:59 :00 No [id number] PAIN 1 tablet EVERY 4 HOURS 1 tablet EVERY 4 HOURS (route: oral) Med Classific ation: Analgesic , Anti-infl ammatory or Antipyret ic trazodone 100 mg tablet 12-22 00:00: 00 Yes [id number] INSOMNIA 1 tablet BEDTIME 1 tablet BEDTIME (route: oral) Med Classific ation: Central Nervous System Agents Tylenol Extra Strength 500 mg tablet 12-22 00:00: 00 Yes [id number] PAIN 2 tablet 3 TIMES DAILY 2 tablet 3 TIMES DAILY (route: oral) Med Classific ation: Analgesic , Anti-infl ammatory or Antipyret ic aspirin 325 mg tablet 12-24 00:00: 00 01-05 23:59 :00 No [id number] blood thinner 1 tablet 2 TIMES DAILY 1 tablet 2 TIMES DAILY (route: oral) Med Classific ation: Analgesic , Anti-infl ammatory or Antipyret ic oxycodone 5 mg tablet 12-25 00:00: 00 01-13 00:00 :00 No [id number] SEVERE PAIN 1 tablet EVERY 4 HOURS 1 tablet EVERY 4 HOURS (route: oral) Med Classific ation: Analgesic , Anti-infl ammatory or Antipyret ic amlodipine 5 mg tablet 01-08 00:00: 00 01-08 23:59 :00 No [id number] HIGH BLOOD PRESSURE 1 tablet DAILY 1 tablet DAILY (route: oral) Med Classific ation: Cardiovas cular Therapy Agents Colace 100 mg capsule 01-08 00:00: 00 01-09 23:59 :00 No [id number] CONSTIPATIO N 2 capsule BEDTIME 2 capsule BEDTIME (route: oral) Med Classific ation: Gastroint estinal Therapy Agents Colace 100 mg capsule 01-10 00:00: 00 Yes [id number] CONSTIPATIO N 2 capsule BEDTIME 2 capsule BEDTIME (route: oral) Med Classific ation: Gastroint estinal Therapy Agents Metamucil [facility] Fiber 3.4 gram/5.8 gram oral powder 14 00:00: 00 Yes [id number] CONSTIPATIO N 5.8 gram DAILY 5.8 gram DAILY (route: oral) Med Classific ation: Gastroint estinal Therapy Agents amlodipine 10 mg tablet 18 00:00: 00 Yes [id number] HTN 10 mg DAILY 10 mg DAILY (route: oral) Med Classific ation: Cardiovas cular Therapy Agents aspirin 81 mg chewable tablet 01-13 00:00: 00 Yes [id number] NSAID 81 mg DAILY 81 mg DAILY (route: oral) Med Classific ation: Hematolog ical Agents Keppra 500 mg tablet 01-13 00:00: 00 02-19 23:59 :00 No [id number] TREATS SEIZURE DISORDER 500 mg 2 TIMES DAILY 500 mg 2 TIMES DAILY (route: oral) Med Classific ation: Central Nervous System Agents Percocet 5 mg-325 mg tablet 01-13 00:00: 00 Yes [id number] PAIN 5-35 mg EVERY 4 HOURS 5-35 mg EVERY 4 HOURS (route: oral) Med Classific ation: Analgesic , Anti-infl ammatory or Antipyret ic Senna Lax 8.6 mg tablet 01-13 00:00: 00 Yes [id number] STOOL SOFTNER 1 tablet BEDTIME 1 tablet BEDTIME (route: oral) Med Classific ation: Gastroint estinal Therapy Agents mirtazapine 15 mg tablet 02-19 00:00: 00 Yes [id number] IMPROVES SLEEP 1 tablet BEDTIME 1 tablet BEDTIME (route: oral) Med Classific ation: Central Nervous System Agents oxcarbazepi ne 300 mg tablet 02-19 00:00: 00 Yes [id number] SEIZURE DISORDER 1 tablet DAILY 1 tablet DAILY (route: oral) Med Classific ation: Central Nervous System Agents oxcarbazepi ne 300 mg tablet 02-19 00:00: 00 Yes [id number] SEIZURE DISORDER 1.5 tablet BEDTIME 1.5 tablet [...] ON ADMISSION AND PRN FOR RN TO ASSESS/CRUMB PACKER TO OBSERVE PATIENT, WITH NOTIFICATION TO THE [...] ON ADMISSION AND PRN FOR RN TO ASSESS/CRUMB PACKER TO OBSERVE PATIENT, WITH NOTIFICATION TO THE [...] TO EVALUATE, OBSERVE / ASSESS, AND MONITOR, BULK TANK DRIVER TO OBSERVE AND MONITOR, PROVIDE SKILLED THERAPEUTIC INTERVENTION, ACTIVITY, EDUCATION, AND TRAINING TO ADDRESS; PT/BULK TANK DRIVER TO PROVIDE GAIT TRAINING FOR IMPROVED MOBILITY AND /OR TO NORMALIZE GAIT PATTERN THERAPEUTIC EXERCISES AND ESTABLISHING A HOME EXERCISE PROGRAM (PT/BULK TANK DRIVER) PT/BULK TANK DRIVER TO PROVIDE STAIR TRAINING SIT TO/FROM STAND TRANSFERS (PT/BULK TANK DRIVER) PT / BULK TANK DRIVER TO MONITOR AND EDUCATE ON OXYGEN SATURATION DURING ADLS/IADLS, NOTIFY PHYSICIAN AND/OR THE RN CLINICAL MIDDLE SCHOOL TUTOR FOR PHYSICIAN NOTIFICATION AND IF O2 SATS BELOW PHYSICIAN ORDERED PARAMETERS AFTER 10 MIN OF REST PT / BULK TANK DRIVER MAY EDUCATE ON PAIN MANAGEMENT CLINICALLY INDICATED, INCLUDING NON-PHARMACOLOGICAL PAIN REDUCTION TECHNIQUES AND USE OF CRYOTHERAPY UP TO 20 MIN AT A TIME FOR PAIN MANAGEMENT 4 TIMES PER DAY TO LEFT KNEE PT/BULK TANK DRIVER TO TEACH KNEE REPLACEMENT SELF-MANAGEMENT PT / BULK TANK DRIVER TO OBSERVE WOUND/INCISION AND/OR INTACT DRESSING ON LEFT KNEE AND REPORT EARLY SIGNS AND SYMPTOMS OF WOUND DETERIORATION, COMPLICATIONS, OR INFECTION TO PHYSICIAN AND/OR THE RN CLINICAL MIDDLE SCHOOL TUTOR FOR PHYSICIAN NOTIFICATION. PT/BULK TANK DRIVER TO IDENTIFY FALL RISK FACTORS; EDUCATE THE PATIENT/CAREGIVER ON WAYS TO REDUCE FALL RISK FACTORS AND ESTABLISH HOME EXERCISE PROGRAM TO MINIMIZE FALL RISK. MAY TEACH THE PATIENT FLOOR RECOVERY WHEN CLINICALLY APPROPRIATE [code = AGENCY MAY PERFORM A RESUMPTION OF CARE VISIT FOLLOWING ANY HOSPITAL ADMISSION. PT TO EVALUATE, OBSERVE / ASSESS, AND MONITOR, BULK TANK DRIVER TO OBSERVE AND MONITOR, PROVIDE SKILLED THERAPEUTIC INTERVENTION, ACTIVITY, EDUCATION, AND TRAINING TO ADDRESS; PT/BULK TANK DRIVER TO PROVIDE GAIT TRAINING FOR IMPROVED MOBILITY AND /OR TO NORMALIZE GAIT PATTERN THERAPEUTIC EXERCISES AND ESTABLISHING A HOME EXERCISE PROGRAM (PT/BULK TANK DRIVER) PT/BULK TANK DRIVER TO PROVIDE STAIR TRAINING SIT TO/FROM STAND TRANSFERS (PT/BULK TANK DRIVER) PT / BULK TANK DRIVER TO MONITOR AND EDUCATE ON OXYGEN SATURATION DURING ADLS/IADLS, NOTIFY PHYSICIAN AND/OR THE RN CLINICAL MIDDLE SCHOOL TUTOR FOR PHYSICIAN NOTIFICATION AND IF O2 SATS BELOW PHYSICIAN ORDERED PARAMETERS AFTER 10 MIN OF REST PT / BULK TANK DRIVER MAY EDUCATE ON PAIN MANAGEMENT CLINICALLY INDICATED, INCLUDING NON-PHARMACOLOGICAL PAIN REDUCTION TECHNIQUES AND USE OF CRYOTHERAPY UP TO 20 MIN AT A TIME FOR PAIN MANAGEMENT 4 TIMES PER DAY TO LEFT KNEE PT/BULK TANK DRIVER TO TEACH KNEE REPLACEMENT SELF-MANAGEMENT PT / BULK TANK DRIVER TO OBSERVE WOUND/INCISION AND/OR INTACT DRESSING ON LEFT KNEE AND REPORT EARLY SIGNS AND SYMPTOMS OF WOUND DETERIORATION, COMPLICATIONS, OR INFECTION TO PHYSICIAN AND/OR THE RN CLINICAL MIDDLE SCHOOL TUTOR FOR PHYSICIAN NOTIFICATION. PT/BULK TANK DRIVER TO IDENTIFY FALL RISK FACTORS; EDUCATE THE [...] End Date/Time Encounter Type Admission Type Attending [facility] Care Department Encounter ID Discharge Date Discharge Status Discharge Condition Discharge Reason Percent Goals Met 2023-12-23 00:00:00 2024-02-20 00:00:00 Outpatient NEW ADMISSION ELIDA PRIEST [facility] [id number] 2024-02-20 00:00:00 DISCHARGE TO HOME OR SELF CARE INDEPENDEN T IN THE HOME HH OR PAL- GOALS MET 86.67
--- NOTE | 2024-06-14 04:45 | PC.NURSE ---
Pt BIBA from home, Pt reports headache starting yesterday evening taking oxycodone with relief, going to sleep and waking up around 0130 with worsening headache pain and upper neck pain. Pt denies any injury/trauma. Denies thinner. Son at bedside. Pt A&Ox3, left sided facial droop, Pt reports hx of previous stroke, equal hand neighborhood worker, no extremity weakness, second IV line placed. RN verbal report given to Genet ELI over to [facility].
[2024-06-14 05:03] LABS: Influenza A PCR NEGATIVE (Negative); Influenza B PCR NEGATIVE (Negative); Resp Syncy Virus RNA Qual PCR NEGATIVE (Negative); SARS COV2 PCR INHOUSE NEGATIVE (Negative)
[2024-06-14 14:55] LABS: Prothrombin Time Whole Bld POC 12.4 sec (11.1-13.5)
== END 2024-06-14 04:50 | disposition short-term general hospital (02) ==
LOC: HO.ED 04:35
PROVIDERS: Emergency Provider Emergency Medicine Emergency Medical Services
DX: I60.4 Nontraumatic subarachnoid hemorrhage from basilar artery (principal); I10 Essential (primary) hypertension; E78.00 Pure hypercholesterolemia, unspecified; E03.9 Hypothyroidism, unspecified; R29.701 NIHSS score 1; Z87.891 Personal history of nicotine dependence; Z79.02 Long term (current) use of antithrombotics/antiplatelets; Z79.899 Other long term (current) drug therapy; Z03.818 Encounter for observation for suspected exposure to other biological agents ruled out
CPT/HCPCS: 0241U; 36415; 70450; 80048; 80061; 82947; 84484; 85025; 85610; 85730; 93005; 96374; 96375; 96376; 99285; J2270; J2405

== ENCOUNTER → 2024-06-14 02:54 | Outpatient (BNV) | payer MEDICARE, SELFPAY | PROVIDERS: Emergency Provider Emergency Medicine Emergency Medical Services; Visit Provider Radiology Diagnostic Radiology | DX: I63.9 Cerebral infarction, unspecified (principal) | CPT/HCPCS: 70450 ==

== ENCOUNTER → 2024-06-14 02:54 | Outpatient (BNV) | payer MEDICARE, SELFPAY | PROVIDERS: Emergency Provider Emergency Medicine Emergency Medical Services; Visit Provider Internal Medicine Cardiovascular Disease | DX: I63.9 Cerebral infarction, unspecified (principal) | CPT/HCPCS: 93010 ==

== ENCOUNTER 2024-06-25 13:00 | Outpatient (AMB) | payer MEDICARE, SELFPAY ==
--- NOTE | 2024-06-25 13:03 | A.OFFPC_ITS ---
Vital Signs 06/25/24 13:05 Height 5 ft 3 in Weight 155 lb 8 oz BMI 27.5 BP 120/48 L Blood Pressure Location Lt brachial Position Sitting Pulse 78 Pulse Source Pulse Oximeter Temp 97.6 F Temp Source Oral Pulse Oximetry (%) 95 Oxygen Delivery Method Room Air Intake Visit Reasons: [facility] 06/18 stroke Disk Operator Required: No Accompanied by: Daughter Allergies phenytoin [Dilantin] Allergy (Severe, Verified 06/25/24 13:22) Hives sertraline [SERTRALINE] Allergy (Severe, Verified 06/25/24 13:22) DROPPED SODIUM LEVEL, BP increase Sodium drop trazodone Allergy (Severe, Verified 06/25/24 13:31) respiratory depression aspirin [ASPIRIN] Allergy (Intermediate, Verified 06/25/24 13:22) RISK OF BLEDING NSAIDS (Non-Steroidal Anti-Inflamma Allergy (Unknown, Verified 06/25/24 13:22) risk of bleeding Medication List - Last Reconciled 06/25/24 by ITZ De La O acetaminophen 650 mg (2 x 325 mg) PO Q6H PRN 30 days amlodipine 10 mg See Protocol PO DAILY 90 days atenolol 50 mg PO DAILY atorvastatin 80 mg PO BEDTIME docusate sodium 100 mg PO DAILY PRN 30 days irbesartan 300 mg PO DAILY levothyroxine 50 mcg PO DAILY@0600 lorazepam 0.5 mg PO BEDTIME lorazepam 0.5 mg PO BID PRN 30 days mirtazapine 15 mg PO BEDTIME 90 days oxcarbazepine 450 mg PO BEDTIME oxcarbazepine 300 mg PO DAILY@0900 oxycodone-acetaminophen 5-325 mg (Percocet) 1 tab PO Q4-6H PRN polyethylene glycol 3350 (Miralax) 17 grams PO DAILY PRN walker Folding front wheeled walker Tobacco use date assessed: 06/25/24 Fall risk assessment: No Falls in past year Last assessed Fall Risk: 06/25/24 Dental Screening Dental Screen Date: 06/25/24 Did you have a dental visit in the last 12 months?: Yes Did you have a dental problem in the last 6 months where you did not have access to dental care?: No Was dental information given to patient?: Patient has dentist HPI [facility] 06/18 stroke HPI Details Patient is a 83-year-old female significant past medical history of h ypertension, hyperlipidemia, hypothyroidism, moyamoya disease, prior history of left temporal intraparenchymal hemorrhage 2000, seizure disorder, breast cancer status post left-sided lumpectomy 02/2023 at [facility] on anastrozole, general anxiety disorder, depression, left knee meniscal tear status post surgical repair in 2008, right knee meniscal tear status post repair 2014 She is a patient of Dr. Pruett, was last seen in the office on 02/16/2024 The patient is presenting today post hospital follow-up. She was admitted on 06/14/2004 to [facility]U has a Direct transfer from [facility] with left [id number] SAH, left temporal horn intraparenchymal hemorrhage The patient reports that her blood pressure is fluctuating and the other night her systolic was in 190s Reports that her family called a family doctor who instructed them to give an extra dose of the amlodipine 10 mg and half of the atenolol 50mg. Reports that the blood pressure came down to her baseline Reports that she took a dose of her Ativan as well Patient reports that she has been feeling more tired and just feels like resting blood pressure is below her baseline in office today reports that she hates drinking water and had not been drinking much The patient was encouraged that she needs to drink more Will repeat labs and have the patient come back in a 1 month for blood pressure check Discussed with patient and daughter that she needs to check her blood pressure at least twice a day and to call the office for any concerns She denies chest pain, denies shortness of breath, denies heart palpitation, denies dizziness Reports that she has been moving her bowels, denies abdominal pain or urinary symptoms Patient reports that they want the patient trazodone to be listed as an allergy Reports that the medication caused her to almost cardiopulmonary arrested-this medication was discontinued in as a allergy Patient and daughter report an upcoming appointment with with the Neurology The patient also an upcoming appointment Nephrology. The patient was encouraged to keep that appointment to also discuss blood pressure fluctuation with them as well Right calf pain: Reports that her right calf and hurting for 5 days now Reports that the pain travels up behind her knee to her thigh On exam, no discoloration, no swelling,will add magnesium to her labs [facility] Medical History (Updated 06/26/24 @ 12:47 by ITZ De La O) Seasonal allergies Osteopenia Constipation Acquired hypothyroidism Overweight (BMI 25.0-29.9) Cataract Seizures Stroke (~2000) Ash ash disease (~2000) Urinary frequency Allergic rhinitis Degenerative disc disease, cervical Neck pain Depression Anxiety Insomnia Epilepsy Obesity (BMI 30-39.9) Osteoarthritis Benign essential hypertension Pure hypercholesterolemia Rib pain on right side Left shoulder pain Recurrent dry cough Pain of right scapula Right-sided thoracic back pain Surgical History History of left knee replacement H/O breast surgery Hx of colonoscopy History of kidney surgery Status post cervical disc replacement History of knee replacement procedure of right knee Hx of knee surgery Family History Father Chronic mental illness Mother Hypertension Other Mental health problem Social History Household Members: None Housing: House Are you a primary doggy daycare activities director to a significant other at home: No Do you presently have visiting nurse or other home services: Yes Alcohol intake: current Alcohol intake frequency: holidays/special occasions only Alcohol type: beer Comment: not documented previous shift Patient Tobacco Use Status: Former Tobacco user Tobacco use type: Cigarette Years Smoked: 10 e-Cigarette/Vaping Use: Never Used Second Hand Smoke Exposure: No Advance Directives Date on File: 05/23/23 service: No Current occupational status: retired Cognitive needs: Yes (Walker) Hearing needs: No Vision needs: No Questionnaire PHQ-9 Over the last 2 weeks, how often have you been bothered by any of the following problems? 1. Little interest or pleasure in doing things: not at all 2. Feeling down, depressed, or hopeless: not at all 3. Trouble falling or staying asleep, or sleeping too much: not at all 4. Feeling tired or having little energy: not at all 5. Poor appetite or overeating: not at all 6. Feeling bad about yourself - or that you are a failure or have let yourself or your family down: not at all 7. Trouble concentrating on things, such as reading the newspaper or watching television: not at all 8. Moving or speaking so slowly that other people could have noticed. Or the opposite - being so fidgety or restless that you have been moving around a lot more than usual: not at all 9. Thoughts that you would be better off or of hurting yourself in some way: not at all Total score: 0 Depression Screening Interpretation: Negative Depression Screening Done: Yes 68091 - PHQ-9 Billing: Yes Source: Developed by Drs. Michoacano Hanson, Dayanna Car, Javier Spain and colleagues, with an educational zach from [employer]. Thrive Questionnaire Date Thrive assessed: 06/25/24 I am a: Patient What is your living situation today?: I have a steady place to live Within the past 12 months, did the food you bought not last and you didn't have the money to get more?: Never true Within the past 12 months, did you worry whether your food would run out before you got money to buy more?: Never true Do you have trouble paying for medicines?: No Do you have trouble getting transportation to medical appointments?: No Do you have trouble paying your heating and electricity bill?: No Do you have trouble taking care of your child, family member or friend?: No Do you have trouble with day-to-day activities such as bathing, preparing meals, shopping, managing finances, etc.?: No Are you currently unemployed and looking for a job?: No Are you interested in more education?: No Please select the resources that you would like help with: None Currently or been in a relationship where the following occur: No concerns reported THRIVE Score: 0 AUDIT C Alcohol Use Questionnaire (AUDIT-C) 1. How often do you have a drink containing alcohol?: Never 3. How often do you have six or more drinks on one occasion?: Never Total Score: 0 Score Reviewed/Action Taken: Yes FEI-7 AMB Questionnaire FEI-7 Date FEI - 7 assessed: 06/25/24 Feeling nervous, anxious, or on edge: 0 = Not at all Not being able to stop or control worryin = Not at all Worrying too much about different things: 0 = Not at all Trouble relaxin = Not at all Being so restless that it is hard to sit still: 0 = Not at all Becoming easily annoyed or irritable: 0 = Not at all Feeling afraid as if something awful might happen: 0 = Not at all Total FEI-7 score (0-4 normal; 5-9 mild; 10-14 moderate; 15-21 severe): 0 Source: Developed by Drs. Michoacano Hanson, Dayanna Car, Javier Spain and colleagues, with an educational zach from [employer]. FEI-7 Assessment Billing FEI-7 Assessment Tool: FEI-7 Assessment 83691 Review of Systems Const Details: Denies chills, + tiredness, Denies fever(s), Denies headache(s) and Denies weakness HEENT Denies change in vision, Denies dizziness, Denies headache(s), Denies hearing loss, Denies nasal congestion, Denies sinus pain, Denies sinus pressure and Denies sore throat Card Denies chest pain, Denies lightheadedness, Denies dyspnea and Denies other (palpitations) Resp Denies cough, Denies dyspnea and Denies wheezing GI Denies abdominal pain, Denies melena, Denies hematochezia, Denies change in bowel habits, Denies dyspepsia and Denies nausea Denies hematuria and Denies dysuria Musc Denies abnormal gait, + myalgias (right calf), + chronic arthralgias (left knee intermittently), + chronic lower back pain, Denies numbness and Denies tingling Skin/Breast Denies rash, Denies unusual bruising and Denies wounds Neuro Denies abnormal gait, Denies dizziness, Denies headache(s), Denies memory loss, Denies numbness, Denies Sensory deficit (Neuro), Denies tingling and Denies weakness Psych Denies anxiety, Denies depression and Denies memory loss Endo Denies cold intolerance, Denies fatigue, Denies heat intolerance, Denies polydipsia and Denies polyuria Kamari/Lymph Denies easy bleeding and Denies easy bruising Aller/Immun Denies wheezing Physical exam (Primary Care) Vital Signs: Last Vital Signs Temp 97.6 F 06/25/24 13:05 Pulse 78 06/25/24 13:05 BP 120/48 L 06/25/24 13:05 Pulse Ox 95 06/25/24 13:05 Oxygen Delivery Method Room Air 06/25/24 13:05 BMI result Body Mass Index 27.5 Tobacco/Smoking Status: Tobacco use Status Tobacco use date assessed 06/25/24 06/25/24 13:15 Patient Tobacco Use Status Former Tobacco user 06/25/24 13:05 Tobacco use type Cigarette 06/25/24 13:05 e-Cigarette/Vaping Use Never Used 06/25/24 13:05 PHQ-9: PHQ-9 Score PHQ-9: Total score 0 06/26/24 12:20 Depression Screening Interpretation: Negative Thrive Assessment: Date of Thrive Assessment Date Thrive assessed 06/25/24 06/25/24 13:11 Currently or been in a relationship where the following occur: No concerns reported Const Other: General: no acute distress, well developed, alert and awake Nutritional Appearance: well nourished Orientation/consciousness: patient oriented x3 HENMT Head: Yes normocephalic and Yes atraumatic Ears: hearing grossly normal bilaterally and TM's normal bilaterally General nose exam: Normal external nose present and Normal nares present Mouth: Normal oral and palatal mucosa present and dry mucous membranes Eyes Pupils: Equal, round and reactive pupils present and Pupil accommodation reflex normal EOM: EOMs intact bilaterally Neck Neck: Yes normal visual inspection, Yes no lymphadenopathy and Yes trachea midline Thyroid: Thyroid normal Lymphatic: no lymphadenopathy noted Resp Effort & Inspection: normal respiratory effort Auscultation: clear to auscultation bilaterally Cardio Rate: regular rate Rhythm: regular rhythm Heart sounds: S1 normal heart sound present, S2 normal heart sound present, no gallops, no murmurs and no rubs GI Palpation (GI): No Abdominal aortic bruit present, Soft to palpation, nontender, No hepatosplenomegaly present and No Rebound tenderness present Auscultation: normal bowel sounds General: Yes no CVA tenderness Back/Spine/Pelvis Back: no CVA tenderness Cervical Spine: cervical ROM normal and No Cervical spine tenderness Thoracic/Lumbar Spine: Lumbar spine tenderness Skin General: warm and dry. Normal skin color. Normal skin turgor Lesions: no lesions Nails: normal Neuro General: patient oriented x3, gait normal and CN's II-XI intact bilaterally Cranial nerves: Yes Equal, round and reactive pupils present Cognition (Neuro): normal cognition Gait exam (Neuro): Normal gait present Motor exam (neuro): 5/5 motor strength present throughout Extrem General: Yes normal to inspection, No edema and No calf tenderness Psych Appearance: grossly normal Affect: normal affect Attitude: cooperative Thought process: Normal thought process present Coding Level of Care Code Est Pt Level 4 (10278) Diagnoses Subarachnoid hemorrhage I60.9 Ash ash disease I67.5 Hypertension, unspecified type I10 Hypertension type: unspecified Acquired hypothyroidism E03.9 Nonintractable epilepsy without status epilepticus, unspecified epilepsy type G40.909 Epilepsy type: unspecified Intractability: not intractable Status epilepticus: without status epilepticus Degenerative disc disease, cervical M50.30 Malignant neoplasm of left breast in female, estrogen receptor positive, unspecified site of breast C50.912; Z17.0 Breast location: unspecified site of breast Estrogen receptor status: positive Patient sex: female Insomnia, unspecified type G47.00 Insomnia type: unspecified Anxiety F41.9 Depression, unspecified depression type F32.9 Depression Type: unspecified Additional Codes FEI-7 Assessment Billing - FEI-7 Assessment Tool: FEI-7 Assessment 81881 ([id number]) PHQ-9 - 06486 - PHQ-9 Billing: Yes ([id number]) Time Spent (min) 45 Assessment & Plan Assessment & Plan (1) Subarachnoid hemorrhage: Code(s): I60.9 - Nontraumatic subarachnoid hemorrhage, unspecified Category: Medical Plan: The patient was found to a left-side [id number] subarachnoid hemorrhage and a left frontal horm intraperenchymal brain hemorrhage Follow up with neurology as scheduled (2) Ash ash disease: Onset Date: ~2000 Comment: was on Aspirin daily for a while but she stopped taking this many years ago Code(s): I67.5 - Moyamoya disease Category: Medical Plan: Follow up with Neurology as scheduled (3) HTN (hypertension): Code(s): I10 - Essential (primary) hypertension Category: Medical Qualifiers: Hypertension type: unspecified Qualified Code(s): I10 - Essential (primary) hypertension Plan: Uncontrolled: Reports blood pressures fluctuating from high to low normal. Possible multifactorial, patient reports that she has not drinking water, the patient is also on other medications that could affect blood pressure. For instance, the patient is on lorazepam 0.5 mg b.i.d. p.r.n. reports the systolic was 190s the other night. Reports that a family doctor instructed her to take an extra dose of amlodipine 10 mg and 1/2 of her atenolol 50 mg. The patient also took 1 of her lorazepam 0.5mg as well. Reports that her blood pressure came down close to her baseline. The patient is also concerned about feeling tired. Discussed with the patient that she needs to drink water because being dehydrated could cause her to feel tired. Added, she is also taking lorazepam which will add to her tiredness. The patient blood pressure in office today is low normal. Lower than what her normal used to be. Reinforced the needs to drink more and to monitor blood pressure more frequently Patient to contact the office for any concerns. We will send the patient to recheck blood work and have the patient follow up in a month as well to closely monitor her blood pressure (4) Acquired hypothyroidism: Code(s): E03.9 - Hypothyroidism, unspecified Category: Medical Plan: Continue levothyroxine 50 mcg daily Blood work ordered-will advise when resulted (5) Epilepsy: Code(s): G40.909 - Epilepsy, unspecified, not intractable, without status epilepticus Category: Medical Qualifiers: Epilepsy type: unspecified Intractability: not intractable Status epilepticus: without status epilepticus Qualified Code(s): G40.909 - Epilepsy, unspecified, not intractable, without status epilepticus Plan: Continue oxcarbazepine 300 mg daily+ oxcarbamazepine 450 mg at bedtime Follow up with Neurology as scheduled (6) Degenerative disc disease, cervical: Comment: S/P anterior fusion of C5-C7 in 2011 Code(s): M50.30 - Other cervical disc degeneration, unspecified cervical region Category: Medical Plan: Continue acetaminophen 650 mg q.6 p.r.n. 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; stage I (IE1GQB9), grade 1, ER positive, VT positive, HER2 negative - diagnosed in January 2023 Code(s): C50.912 - Malignant neoplasm of unspecified site of left female breast Category: Surgical Qualifiers: Breast location: unspecified site of breast Estrogen receptor status: positive Patient sex: female Qualified Code(s): C50.912 - Malignant neoplasm of unspecified site of left female breast; Z17.0 - Estrogen receptor positive status [ER+] Plan: Continue anastrozole (8) Insomnia: Code(s): G47.00 - Insomnia, unspecified Category: Medical Qualifiers: Insomnia type: unspecified Qualified Code(s): G47.00 - Insomnia, unspecified Plan: Trazodone 100 mg at bedtime was discontinued and add to allergy list Per daughter, this medication caused the patient to have a near cardiopulumonary arrest Per patient, all she wants to do is sleep continue mirtazapine 15 mg and practice good sleep hygiene (9) Anxiety: Code(s): F41.9 - Anxiety disorder, unspecified Category: Medical Plan: Continue lorazepam 0.5 mg b.i.d. p.r.n. (10) Depression: Code(s): F32.9 - Major depressive disorder, single episode, unspecified Category: Medical Qualifiers: Depression Type: unspecified Qualified Code(s): F32.9 - Major depressive disorder, single episode, unspecified Plan: Continue mirtazapine 15 mg at bedtime + lorazepam p.r.n. Plan Follow up in 1 month Orders: Orders Comprehensive [place]. Panel Fast 06/27/24 D64.9 - Anemia, unspecified, E03.9 - Hypothyroidism, unspecified, E66.3 - Overweight, F41.9 - Anxiety disorder, unspecified, G40.909 - Epilepsy, unspecified, not intractable, without status epilepticus, G47.00 - Insomnia, unspecified, I10 - Essential (primary) hypertension, R25.2 - Cramp and spasm, R73.01 - Impaired fasting glucose, R79.89 - Other specified abnormal findings of blood chemistry Magnesium 06/27/24 D64.9 - Anemia, unspecified, E03.9 - Hypothyroidism, unspecified, E66.3 - Overweight, F41.9 - Anxiety disorder, unspecified, G40.909 - Epilepsy, unspecified, not intractable, without status epilepticus, G47.00 - Insomnia, unspecified, I10 - Essential (primary) hypertension, R25.2 - Cramp and spasm, R73.01 - Impaired fasting glucose, R79.89 - Other specified abnormal findings of blood chemistry TSH reflex Free T4 06/27/24 D64.9 - Anemia, unspecified, E03.9 - Hypothyroidism, unspecified, E66.3 - Overweight, F41.9 - Anxiety disorder, unspecified, G40.909 - Epilepsy, unspecified, not intractable, without status epilepticus, G47.00 - Insomnia, unspecified, I10 - Essential (primary) hypertension, R25.2 - Cramp and spasm, R73.01 - Impaired fasting glucose, R79.89 - Other specified abnormal findings of blood chemistry Free T4 (Free Thyroxine) 06/27/24 D64.9 - Anemia, unspecified, E03.9 - Hypothyroidism, unspecified, E66.3 - Overweight, F41.9 - Anxiety disorder, unspecified, G40.909 - Epilepsy, unspecified, not intractable, without status epilepticus, G47.00 - Insomnia, unspecified, I10 - Essential (primary) hypertension, R25.2 - Cramp and spasm, R73.01 - Impaired fasting glucose, R79.89 - Other specified abnormal findings of blood chemistry Complete Blood Count Auto Diff 06/27/24 D64.9 - Anemia, unspecified, E03.9 - Hypothyroidism, unspecified, E66.3 - Overweight, F41.9 - Anxiety disorder, unspecified, G40.909 - Epilepsy, unspecified, not intractable, without status epilepticus, G47.00 - Insomnia, unspecified, I10 - Essential (primary) hypertension, R25.2 - Cramp and spasm, R73.01 - Impaired fasting glucose, R79.89 - Other specified abnormal findings of blood chemistry Vitamin D 25-OH Total 06/27/24 D64.9 - Anemia, unspecified, E03.9 - Hypothyroidism, unspecified, E66.3 - Overweight, F41.9 - Anxiety disorder, unspecified, G40.909 - Epilepsy, unspecified, not intractable, without status epilepticus, G47.00 - Insomnia, unspecified, I10 - Essential (primary) hypertension, R25.2 - Cramp and spasm, R73.01 - Impaired fasting glucose, R79.89 - Other specified abnormal findings of blood chemistry Vitamin B12 and Folate 06/27/24 D64.9 - Anemia, unspecified, E03.9 - Hypothyroidism, unspecified, E66.3 - Overweight, F41.9 - Anxiety disorder, unspecified, G40.909 - Epilepsy, unspecified, not intractable, without status epilepticus, G47.00 - Insomnia, unspecified, I10 - Essential (primary) hypertension, R25.2 - Cramp and spasm, R73.01 - Impaired fasting glucose, R79.89 - Other specified abnormal findings of blood chemistry UA CC w/rflx Micro + Cult 06/27/24 D64.9 - Anemia, unspecified, E03.9 - Hypothyroidism, unspecified, E66.3 - Overweight, F41.9 - Anxiety disorder, unspecified, G40.909 - Epilepsy, unspecified, not intractable, without status epilepticus, G47.00 - Insomnia, unspecified, I10 - Essential (primary) hypertension, R25.2 - Cramp and spasm, R73.01 - Impaired fasting glucose, R79.89 - Other specified abnormal findings of blood chemistry Hemoglobin A1c 06/27/24 D64.9 - Anemia, unspecified, E03.9 - Hypothyroidism, unspecified, E66.3 - Overweight, F41.9 - Anxiety disorder, unspecified, G40.909 - Epilepsy, unspecified, not intractable, without status epilepticus, G47.00 - Insomnia, unspecified, I10 - Essential (primary) hypertension, R25.2 - Cramp and spasm, R73.01 - Impaired fasting glucose, R79.89 - Other specified abnormal findings of blood chemistry Medications: Discontinued trazodone Discontinued Reason: Doctor's Order 100 mg PO BEDTIME 90 days PRN 90 tabs 3RF sleep
[2024-06-25 13:05] VITALS: BP 120/48; PULSE 78; TEMP 36.4; O2SAT 95; BMI 27.5
--- OUTSIDE RECORDS SUMMARY | 2024-06-25 13:56 | XMS_ITS | Continuity of Care Document ---
Author Organization [facility] ter Address [address] [place] [address]- Care Team Providers Care Credit Or Loans Officer Name Role Phone Flynn VEGA, Kelvin Johnson [id number] Date(s): 06/14/24 - 06/18/[address] [id number] Discharge Disposition: A-D/C Home Attending Physician: Erick Xavier MD Admitting Physician: Juanito Astorga MD Referring Physician: Juanito Astorga MD Encounter Type: Disch IP Allergies, Adverse Reactions, Alerts Substance Criticality Severity Reaction Reaction Severity Status aspirin Active sertraline Active Dilantin Active Medications Acetaminophen Tablet 650 mg, Tablet, By Mouth, Every 6 hours, PRN for Pain , Mild, Routine, 06/15/24 11:03:00 AM EST Start Date: 06/15/24 Stop Date: 06/19/24 Status: Discontinued Repeat number: 1 amLODIPine 10 mg oral tablet = 10 mg, By Mouth, Daily, # 30 tablet, 0 Refills, Maintenance, 02/20/15 10:52:13 AM EDT, Tablet, [id number] Start Date: 02/20/15 Status: Ordered Quantity: 30.0 Unit: tablet Repeat number: 1 amLODIPine 10 mg oral tablet 5 mg, Tablet, By Mouth, Hold for: BP<100/60, 06/18/24 9:00:00 AM EST Start Date: 06/18/24 Stop Date: 06/18/24 Status: Completed Repeat number: 1 anastrozole 1 mg oral tablet 1 tablet = 1 mg, By Mouth, Daily, # 90 tablet, 3 Refills, Maintenance, 06/10/24 12:54:00 PM EST, Tablet, [facility]/pharmacy #[id number], Partial fill upon patient request if the prescription is for a schedule II opioid drug., 160, cm, 03/11/24 10:59:00 EDT, Height, 70.9, kg, 03/11/24 10:59:00 EDT, Dry Weight Start Date: 06/10/24 Status: Ordered Quantity: 90.0 Unit: tablet Repeat number: 4 atenolol 50 mg oral tablet = 50 mg, By Mouth, Daily, 0 Refills, Maintenance, 08/23/14 11:47:08 AM EDT, Tablet Start Date: 08/23/14 Status: Ordered Repeat number: 1 atenolol 50 mg oral tablet 25 mg, Tablet, By Mouth, 06/18/24 9:00:00 AM EST Start Date: 06/18/24 Stop Date: 06/18/24 Status: Completed Repeat number: 1 Docusate = 100 mg, By Mouth, 2 times a day, Hold for diarrhea, # 28 tablet, 0 Refills, 05/05/08 4:00:06 PM EST Start Date: 05/05/08 Status: Ordered Quantity: 28.0 Unit: tablet Repeat number: 1 levothyroxine 0.05 mg oral tablet 1 tablet = 50 mcg, By Mouth, Daily, # 30 tablet, 0 Refills, Maintenance, 01/16/24 8:57:00 AM EDT, Tablet, Partial fill upon patient request if the prescription is for a schedule II opioid drug. Start Date: 01/16/24 Status: Ordered Quantity: 30.0 Unit: tablet Repeat number: 1 lidocaine 5% topical film See Instructions, 1 patch to each upper back/shoulder for 12 hrs every day, # 14 pack/packet, 0 Refills, Maintenance, 01/29/15 11:16:46 AM EDT, Patch, [facility] # [id number], 1 patch to each upper back/shoulder for 12 hrs every day Start Date: 01/29/15 Status: Ordered Quantity: 14.0 Unit: pack/packet Repeat number: 1 Lipitor 40 mg oral tablet 80 mg, 2, tablet, By Mouth, Daily at bedtime, 0 Refills Start Date: 02/24/05 Status: Ordered Repeat number: 1 LORazepam 0.5 mg oral tablet 1 tablet = 0.5 mg, By Mouth, 2 times a day, PRN as needed for anxiety, 0 Refills, Maintenance, 01/16/24 8:57:00 AM EDT, Tablet, Partial fill upon patient request if the prescription is for a schedule II opioid drug. Start Date: 01/16/24 Status: Ordered Repeat number: 1 losartan 25 mg oral tablet 25 mg, Tablet, By Mouth, 06/18/24 9:00:00 AM EST Start Date: 06/18/24 Stop Date: 06/18/24 Status: Completed Repeat number: 1 mirtazapine 15 mg oral tablet 1 tablet = 15 mg, By Mouth, Daily at bedtime, # 30 tablet, 0 Refills, Maintenance, 01/16/24 8:57:00 AM EDT, Tablet, Partial fill upon patient request if the prescription is for a schedule II opioid drug. Start Date: 01/16/24 Status: Ordered Quantity: 30.0 Unit: tablet Repeat number: 1 OXcarbazepine 300 mg oral tablet 300 mg, 1, tablet, By Mouth, Daily in AM, Refills 0, Maintenance, 06/14/24 2:17:00 PM EST, Partial fill upon patient request if the prescription is for a schedule II opioid drug. Start Date: 06/14/24 Status: Ordered Repeat number: 1 OXcarbazepine 300 mg oral tablet 450 mg, 1.5, tablet, By Mouth, Daily at bedtime, Refills 0, Maintenance, 06/14/24 2:24:00 PM EST, Partial fill upon patient request if the prescription is for a schedule II opioid drug. Start Date: 06/14/24 Status: Ordered Repeat number: 1 Vitamin D3 oral tablet 1 tablet = 10 mcg, By Mouth, Daily, 0 Refills, Maintenance, 05/04/23 10:38:00 AM EST, Partial fill upon patient request if the prescription is for a schedule II opioid drug. Start Date: 05/04/23 Status: Ordered Repeat number: 1 Results Radiology Reports * Exam Date Time Procedure Performing Provider Status 06/18/24 1:12 AM MRI Brain W+W/O Contrast Carmnia South; Auth (Verified) Notes: (MRI Brain W+W/O Contrast) Reason For Exam: SAH / Moyamoya disease, requested by Neurology to r.o. mass;Other: RESULT: MRI Brain W+W/O Contrast MRI Brain W+W/O Contrast INDICATION / CLINICAL QUESTION: SAH; Moyamoya disease, requested by Neurology to r.o. mass; Clinical Question(s): Tumor Primary; Order Comment: Please see Reference Text for complete list of contraindications Tumor Primary TECHNIQUE: Sagittal and axial T1, axial T2, axial gradient echo weighted images and axial diffusionweighted images. After 15 cc Prohance administered intravenously, axial FLAIR, axial T1-weighted images with sagittal, axial and coronal T1 weighted MENDEZ images were obtained. COMPARISON: CT of head on 06/15/2024 end the prior MRI of brain on 02/25/2005. FINDINGS: There is an approximately 1.1 x 1.4 x 1 cm focal area of susceptibility artifacts in the left anterior medial temporal lobe corresponding to the acute hematoma seen on the prior CT. It is associated with mild surrounding edema. This lesion shows questionable mild rim enhancement although this is difficult to determine due to rim-like hyperintense T1 signals on the precontrast T1- weighted images. A repeat study after the acute hematoma subsides will be useful to evaluate any underlying pathology. Multiple focal areas of acute subarachnoid hemorrhages are again noted in the left frontoparietal and temporal sulci as well as the left sylvian fissure. These areas show susceptibility artifacts. Smaller area of susceptibility artifacts are seen within the right medial frontoparietal sulci also represent subarachnoid hemorrhages. There are hyperintense FLAIR signals within the sulci of bilateraloccipital lobes without associated susceptibility artifacts which could represent proteinaceous fluids. No definite subdural hematoma is noted on the current MRI. There is mild generalized age-related atrophy. Again demonstrated multiple small areas of hyperintense T2 and FLAIR signals are seen in the periventricular and subcortical white matters bilaterally as well as fanny, which are nonspecific but may represent chronic small vessels ischemic disease. Please correlate clinically. 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 Postcontrast images show no other area of abnormal enhancement. Status post bilateral lens extractions. There are normal flow voids within the major intracranial vessels. A small mucus retention cyst is seen in the right-sided sphenoid sinus and the right maxillary sinus respectively. IMPRESSION: There is an approximately 1.1 x 1.4 x 1 cm focal acute hematoma in the left anterior medial temporal lobe associated with mild surrounding edema. Whether this lesion has mild rim enhancement is difficult to determine. A repeat study after the acute hematoma subsides will be useful to evaluate any underlying pathology. Acute subarachnoid hemorrhages in the left frontoparietal and temporal sulci as well as the left sylvian fissure, to a lesser extent at the right medial frontoparietal sulci. Other chronic findings as described above. WSN: [id number] Ordering Physician: Erick Xavier Dictated By: Bhavesh Paulino MD Dictated Date/Time: 06/18/24 12:26 p Reviewed By: Bhavesh Paulino MD Signed By: Bhavesh Paulino MD Signed Date/Time: 06/18/24 12:26 pm Transcribed By: SAVANNAH Transcribed Date/Time: 06/18/24 12:18 pm * Exam Date Time Procedure Performing Provider Status 06/17/24 3:41 PM Chest 2 Views Frontal and Lat Abby Cartagena; Auth (Verified) Notes: (Chest 2 Views Frontal and Lat) Reason For Exam: Hemoptysis / cough;Other: RESULT: Chest 2 Views Frontal and Lat Chest 2 Views Frontal and Lat Reason: Hemoptysis, cough COMPARISON: 01/15/2024 FINDINGS: LINES AND TUBES: None. LUNGS AND PLEURA: Clear lungs. Normal pulmonary vascularity. No pleural effusion. No pneumothorax. HEART, MEDIASTINUM AND ZEYAD: Heart is normal in size. Normal mediastinal and hilar contour. BONES AND SOFT TISSUES: No acute abnormality. Postoperative changes in the cervical spine. IMPRESSION: No acute abnormality. WSN: [id number] Ordering Physician: Erick Xavier Dictated By: Amrik Mohamud MD Dictated Date/Time: 06/17/24 4:10 pm Reviewed By: Amrik Mohamud MD Signed By: Amrik Mohamud MD Signed Date/Time: 06/17/24 4:10 pm Transcribed By: SAVANNAH Transcribed Date/Time: 06/17/24 4:09 pm * Exam Date Time Procedure Performing Provider Status 06/15/24 9:[address] Head/Brain W/O Contrast Neeraj Gloria; Auth (Verified) Notes: (CT Head/Brain W/O Contrast) Reason For Exam: sudden change in mentation, admitted with IPH, SAH;Other: RESULT: CT Head/Brain W/O Contrast CT Head/Brain W/O Contrast INDICATION: Reason: Other:; sudden change in mentation, admitted with IPH, SAH; Clinical Question(s): Hematoma; Order Comment: TECHNIQUE: Noncontrast head CT using axial technique and reconstructed in axial and coronal planes.Iterative reconstruction techniques are used to optimize dose and image quality. CTDIvol Head: 45.20 mGy, DLP Head: 772 mGy*cm. COMPARISON: 06/14/[address] FINDINGS: [employer] view findings, lines and tubes: None. BRAIN AND EXTRA-AXIAL SPACES: LEFT hemispheric frontoparietal temporal hyperdense subarachnoid hemorrhage, without significant interval change. Medial LEFT temporal horn intraparenchymal hemorrhage is without interval change. Decrease in hemorrhage in the LEFT ambient cistern. Small foci of LEFT frontal extra-axial hemorrhage, either subdural or subarachnoid in location. There is no longer hemorrhage layering on the LEFT tentorium. There is again there is normal graham-white matter differentiation. No evidence of acute infarction. Effacement of the LEFT cerebral sulci in the areas of subarachnoid hemorrhage. Mild prominence of the ventricles and sulci consistent with parenchymal volume loss. Mild low-density white matter changes. CALVARIUM, SKULL BASE, AND SOFT TISSUES: No fractures or suspicious bony lesions. Mild ethmoid air cell mucosal thickening. Small fluid level in the RIGHT sphenoid sinus. Visualized orbits and globes are intact. The extracranial soft tissues are unremarkable. IMPRESSION: LEFT frontoparietal temporal subarachnoid hemorrhage, temporal horn intraparenchymal hemorrhage, additional foci of LEFT frontal subdural versus subarachnoid hemorrhage. No significant interval change compared to 06/14/2024 with the exception of decrease in subdural blood along the LEFT tentorium and decrease in hemorrhage in the LEFT ambient cistern. WSN: [id number] Ordering Physician: Hernan Rincon Dictated By: Gavi Goode MD Dictated Date/Time: 06/15/24 10:10 p Reviewed By: Gavi Goode MD Signed By: Gavi Goode MD Signed Date/Time: 06/15/24 10:10 pm Transcribed By: SAVANNAH Transcribed Date/Time: 06/15/24 10:00 pm * Exam Date Time Procedure Performing Provider Status 06/14/24 6:[address] Angio Neck Marine Hernandez; Au th (Verified) Notes: (CT Angio Neck) Reason For Exam: SAD;Other: RESULT: CT Angio Neck CT Angio Head, CT Angio Neck Reason: Other:; SAD; Clinical Question(s): AVM / AVM TECHNIQUE: CT angiogram of the head and neck was performed after bolus administration of intravenous contrast. 100 mL of Isovue 300 was administered intravenously. Coronal and sagittal MIP reformatted images were obtained. Additional 3-D images were created on a separate workstation under concurrent supervision by the attending radiologist. All stenoses are measured using NASCET criteria. Weight-based protocol using automatic tube modulation was used to optimize exposure parameters. RADIATION DOSE PARAMETERS: CTDIvol Body: 11.77 mGy, DLP Body: 508 mGy*cm. CTDIvol Head: 45.50 mGy, DLP Head: 772 mGy*cm. COMPARISON: Noncontrast CT head performed concurrently. FINDINGS: There is a 3 vessel arch. Mural calcified and noncalcified atherosclerotic plaques are seen along the visualized aortic arch and the supraaortic proximal great neck vessels. The right proximal subclavian artery origin has a focal mild stenosis. No hemodynamically significant stenosis. The right common carotid artery is normal in caliber. The right carotid bulb has mural calcified and noncalcified atherosclerotic plaques calcifications extending to the right proximal internal carotid artery. There is an focal acute intraluminal hematoma along the medial aspect of the proximal ICAmeasuring up 5 x 6 mm cross-section and 12 mm at the maximal craniocaudal dimension. The right proximal ICA shows 50% stenosis by NASCET criteria. The left common carotid artery is normal in caliber. The left carotid bulb has mild mural calcifications extending to the left proximal internal carotid artery. The left proximal ICA shows 10% stenosis by NASCET criteria. Right vertebral artery: Patent without stenosis. Left vertebral artery: Dominant. Patent without stenosis. Cervical spine: Status post ACDF of C4-C6 levels. Cervical spondylosis at the rest levels. Soft tissues and lung apices: The visualized upper lungs are degraded by motion artifacts. Diffuse irregular groundglass densities are seen bilaterally suggesting diffuse emphysematous changes. No definite acute pathology. . Mild dependent atelectasis bilaterally. Bilateral thyroid lobes are normal. There is no acute abnormality throughout the soft tissue neck. [place]: Concurrent CT of head showed acute subarachnoid hemorrhages along the left MCA, in the left frontal sulci and the left sylvian fissure. There is a 1.2 x 0.8 cm acute intraparenchymal hematoma in the left temporal lobe. Trace acute left subdural hemorrhage along the left tentorium.Generalized volume loss and bilateral periventricular hypodensities are noted. A mucus retention cyst with mild mucosal thickening in the right inferior maxillary sinus. Mild mucosal thickening in the right-sided sphenoid sinus. Bilateral internal carotid arteries at the skull base have multiple mural calcifications causing focal areas of mild stenosis on the right and moderate to to severe stenosis on the left. Bilateral posterior communicating arteries are visualized. No posterior communicating artery aneurysm is seen. There is a contrast brush in the suprasellar and parasellar cisterns due to numerous small collateral vessels. The evaluation of proximal intracranial proximal ACAs, MCAs branches are limited. The right DINA is hypoplastic. There appears to be a focal severe stenosis at the A1 segment of right DINA. The proximal M1 segment probably also has a focal severe stenosis. No definite aneurysm is noted. Bilateral intracranial vertebral arteries show no definite stenosis. The vertebrobasilar junction is normal. The basilar artery is slightly tortuous. No stenosis or dissection is seen. There is no basilar tip aneurysm. Bilateral adult and pediatric neurologist and their branches are patent. The superior sagittal sinuses, the straight sinus, bilateral transverse and sigmoid sinuses: Patentwithout dural sinus thrombosis. IMPRESSION: Acute left-sided subarachnoid hemorrhage as well as a small intraparenchymal hematoma in the left temporal lobe as described. Trace acute left subdural hemorrhage along the left tentorium. Bilateral carotid siphons have multiple mural calcifications causing mild stenosis on right and moderate to severe stenosis on the left. There is a contrast brush in the suprasellar and parasellar cisterns due to numerous small collateral vessels. The evaluation of proximal intracranial vessels are limited. No definite cutoff of the major branches of the intracranial arteries although the details are limited. Moyamoya disease is susp ected. There appears to be focal severe stenosis at the right proximal M1 segment and the right proximal A1 segment respectively. No discrete aneurysm is noted The right proximal internal carotid artery show 50% stenosis by NASCET criteria. There is an focal acute intraluminal hematoma along the medial aspect of the proximal ICA measuring up 5 x 6 mm cross-section and 12 mm at the maximal craniocaudal dimension. The left proximal internal carotid artery show 10% stenosis by NASCET criteria. The right cervical vertebral artery shows no significant stenosis. The left cervical vertebral artery shows no significant stenosis. The preliminary reports were given by the [facility]. The focal acute intraluminal hematoma along the medial aspect of the proximal ICA was not mentioned. An actionable message ([place]) has been communicated via the [employer] system on 06/14/2024 2:23 PM, Message ID [id number]. WSN: [id number] Ordering Physician: Maria E Boyer Dictated By: Bhavesh Paulino MD Dictated Date/Time: 06/14/24 2:23 pm Reviewed By: Bhavesh Paulino MD Signed By: Bhavesh Paulino MD Signed Date/Time: 06/14/24 2:23 pm Transcribed By: SAVANNAH Transcribed Date/Time: 06/14/24 2:10 pm * Exam Date Time Procedure Performing Provider Status 06/14/24 6:[address] Angio Head Marine Hernandez; Au th (Verified) Notes: (CT Angio Head) Reason For Exam: SAD;Other: RESULT: CT Angio Head CT Angio Head, CT Angio Neck Reason: Other:; SAD; Clinical Question(s): AVM / AVM TECHNIQUE: CT angiogram of the head and neck was performed after bolus administration of intravenous contrast. 100 mL of Isovue 300 was administered intravenously. Coronal and sagittal MIP reformatted images were obtained. Additional 3-D images were created on a separate workstation under concurrent supervision by the attending radiologist. All stenoses are measured using NASCET criteria. Weight-based protocol using automatic tube modulation was used to optimize exposure parameters. RADIATION DOSE PARAMETERS: CTDIvol Body: 11.77 mGy, DLP Body: 508 mGy*cm. CTDIvol Head: 45.50 mGy, DLP Head: 772 mGy*cm. COMPARISON: Noncontrast CT head performed concurrently. FINDINGS: There is a 3 vessel arch. Mural calcified and noncalcified atherosclerotic plaques are seen along the visualized aortic arch and the supraaortic proximal great neck vessels. The right proximal subclavian artery origin has a focal mild stenosis. No hemodynamically significant stenosis. The right common carotid artery is normal in caliber. The right carotid bulb has mural calcified and noncalcified atherosclerotic plaques calcifications extending to the right proximal internal carotid artery. There is an focal acute intraluminal hematoma along the medial aspect of the proximal ICAmeasuring up 5 x 6 mm cross-section and 12 mm at the maximal craniocaudal dimension. The right proximal ICA shows 50% stenosis by NASCET criteria. The left common carotid artery is normal in caliber. The left carotid bulb has mild mural calcifications extending to the left proximal internal carotid artery. The left proximal ICA shows 10% stenosis by NASCET criteria. Right vertebral artery: Patent without stenosis. Left vertebral artery: Dominant. Patent without stenosis. Cervical spine: Status post ACDF of C4-C6 levels. Cervical spondylosis at the rest levels. Soft tissues and lung apices: The visualized upper lungs are degraded by motion artifacts. Diffuse irregular groundglass densities are seen bilaterally suggesting diffuse emphysematous changes. No definite acute pathology. . Mild dependent atelectasis bilaterally. Bilateral thyroid lobes are normal. There is no acute abnormality throughout the soft tissue neck. [place]: Concurrent CT of head showed acute subarachnoid hemorrhages along the left MCA, in the left frontal sulci and the left sylvian fissure. There is a 1.2 x 0.8 cm acute intraparenchymal hematoma in the left temporal lobe. Trace acute left subdural hemorrhage along the left tentorium.Generalized volume loss and bilateral periventricular hypodensities are noted. A mucus retention cyst with mild mucosal thickening in the right inferior maxillary sinus. Mild mucosal thickening in the right-sided sphenoid sinus. Bilateral internal carotid arteries at the skull base have multiple mural calcifications causing focal areas of mild stenosis on the right and moderate to to severe stenosis on the left. Bilateral posterior communicating arteries are visualized. No posterior communicating artery aneurysm is seen. There is a contrast brush in the suprasellar and parasellar cisterns due to numerous small collateral vessels. The evaluation of proximal intracranial proximal ACAs, MCAs branches are limited. The right DINA is hypoplastic. There appears to be a focal severe stenosis at the A1 segment of right DINA. The proximal M1 segment probably also has a focal severe stenosis. No definite aneurysm is noted. Bilateral intracranial vertebral arteries show no definite stenosis. The vertebrobasilar junction is normal. The basilar artery is slightly tortuous. No stenosis or dissection is seen. There is no basilar tip aneurysm. Bilateral adult and pediatric neurologist and their branches are patent. The superior sagittal sinuses, the straight sinus, bilateral transverse and sigmoid sinuses: Patentwithout dural sinus thrombosis. IMPRESSION: Acute left-sided subarachnoid hemorrhage as well as a small intraparenchymal hematoma in the left temporal lobe as described. Trace acute left subdural hemorrhage along the left tentorium. Bilateral carotid siphons have multiple mural calcifications causing mild stenosis on right and moderate to severe stenosis on the left. There is a contrast brush in the suprasellar and parasellar cisterns due to numerous small collateral vessels. The evaluation of proximal intracranial vessels are limited. No definite cutoff of the major branches of the intracranial arteries although the details are limited. Moyamoya disease is susp ected. There appears to be focal severe stenosis at the right proximal M1 segment and the right proximal A1 segment respectively. No discrete aneurysm is noted The right proximal internal carotid artery show 50% stenosis by NASCET criteria. There is an focal acute intraluminal hematoma along the medial aspect of the proximal ICA measuring up 5 x 6 mm cross-section and 12 mm at the maximal craniocaudal dimension. The left proximal internal carotid artery show 10% stenosis by NASCET criteria. The right cervical vertebral artery shows no significant stenosis. The left cervical vertebral artery shows no significant stenosis. The preliminary reports were given by the [facility]. The focal acute intraluminal hematoma along the medial aspect of the proximal ICA was not mentioned. An actionable message ([place]) has been communicated via the [employer] system on 06/14/2024 2:23 PM, Message ID [id number]. WSN: [id number] Ordering Physician: Maria E Boyer Dictated By: Bhavesh Paulino MD Dictated Date/Time: 06/14/24 2:23 pm Reviewed By: Bhavesh Paulino MD Signed By: Bhavesh Paulino MD Signed Date/Time: 06/14/24 2:23 pm Transcribed By: SAVANNAH Transcribed Date/Time: 06/14/24 2:10 pm * Exam Date Time Procedure Performing Provider Status 06/14/24 6:[address] Head/Brain W/O Contrast Marine Hernandez; Auth (Verified) Notes: (CT Head/Brain W/O Contrast) Reason For Exam: SAH;Other: RESULT: CT Head/Brain W/O Contrast CT Head/Brain W/O Contrast INDICATION: Reason: Other:; SAH; Clinical Question(s): AVM TECHNIQUE: Noncontrast head CT using axial technique and reconstructed in axial and coronal planes.Iterative reconstruction techniques are used to optimize dose and image quality. CTDIvol Body: 12.00 mGy, DLP Body: 24 mGy*cm. CTDIvol Head: 45.50 mGy, DLP Head: 772 mGy*cm. COMPARISON: None. FINDINGS: [employer]ing [employer] view findings, lines and tubes: None. BRAIN AND EXTRA-AXIAL SPACES: Left frontoparietotemporal subarachnoid hemorrhage. Medial left temporal horn intraparenchymal hemorrhage measuring 1.2 x 0.9 cm (series 202:41), with suspected extension into the left choroid plexus (series 202:45). Subarachnoid hemorrhage extends into the left ambient and the interpeduncular cisterns. Multiple small foci of left frontal extra-axial hemorrhage, measuring 3 mm, probably subdural (series 202:59, 93). Very faint left tentorial subdural hemorrhage measuring 3 mm in maximum thickness (series 205:34, series 202:51). No midline shift. Mild effacement of the left sulci. Graham-white matter differentiation is well preserved. No acute infarct. Negative insular ribbon sign. Atherosclerotic vascular calcification of the carotid arteries but negative hyperdense vessel sign. Mild low-density white matter changes. CALVARIUM, SKULL BASE, AND SOFT TISSUES: No fractures or suspicious bony lesions. Air-fluid level within the right sphenoid sinus, nonspecific. Mild mucosal thickening in the right maxillary sinus. The remaining paranasal sinuses and mastoid air cells are clear. Visualized orbits and globes are intact. The extracranial soft tissues are unremarkable. IMPRESSION: Left frontoparietotemporal subarachnoid hemorrhage, left temporal horn intraparenchymal hemorrhage,left frontal extra-axial, tiny likely subdural hemorrhages measuring up to 3 mm. Hemorrhage extendsinto the basal cisterns. No midline shift, however there is left hemispheric effacement of the sulci. I have personally reviewed the images and I agree with this report. WSN: [id number] Ordering Physician: Maria E Boyer Dictated By: Nell Doran MD Dictated Date/Time: 06/14/24 7:33 am Reviewed By: Valente Servin MD Signed By: Valente Servin MD Signed Date/Time: 06/14/24 7:38 am Transcribed By: SAVANNAH Transcribed Date/Time: 06/14/24 7:11 am Vital Signs Most recent to oldest [Reference Range]: 1 2 3 4 5 Height 160 cm (06/17/24 10:04 AM) 160 cm (06/14/24 5:25 AM) Weight 72.6 kg (06/14/24 5:25 AM) Oxygen Saturation [94-100 %] 97 % (06/18/24 10:00 AM) 99 % (06/18/24 1:00 AM) 94 % (06/17/24 7:00 AM) Pulse Rate [55-90 bpm] 75 bpm (06/18/24 10:00 AM) 82 bpm (06/18/24 8:09 AM) 82 bpm (06/18/24 1:00 AM) Body Mass Index [18.5-24.99 kg/m2] 28.36 kg/m2 *H* (06/14/24 5: AM) Blood Pressure [90-138/55-84 mm Hg] 143/61mm Hg *H* (06/18/24 11:00 AM) 124/49mm Hg (06/18/24 10:00 AM) 138/87mm Hg (06/18/24 8:09 AM) 138/87mm Hg (06/18/24 8:09 AM) 138/87mm Hg (06/18/24 8:09 AM) Respiratory Rate [16-30 br/min] 16 br/min (06/18/24 12:11 PM) 18 br/min (06/18/24 10:00 AM) 18 br/min (06/18/24 1:00 AM) Temperature [96.8-100.4 DegF] 99.0 DegF (06/18/24 10:00 AM) 98.1 DegF (06/18/24 1:00 AM) 97.8 DegF (06/17/24 3:00 PM) Liters per Minute 2 L/min (06/14/24 11:00 AM) 2 L/min (06/14/24 7:00 AM) Mode of Delivery (Oxygen) Room air (06/18/24 10:00 AM) Room air (06/18/24 1:00 AM) Room air (06/17/24 4:00 AM) Blood pressure sites Arm, left (06/18/24 11:00 AM) Arm, right (06/18/24 10:00 AM) Arm, right (06/18/24 8:00 AM) Temperature Route Oral (06/18/24 10:00 AM) Oral (06/18/24 1:00 AM) Oral (06/17/24 3:00 PM) Dry Weight 72.6 kg (06/14/24 5:25 AM) Weight Obtained Via Bed scale (06/14/24 5:25 AM) Dry Weight Obtained Via Bed scale (06/14/24 5:25 AM) Social History Social History Type Response Smoking Status Former smoker; Other : quit >30yrs ago; entered on: 02/15/15 Sex Sex Representation Female (finding) Note * Kaur Lewis RN: PERFORM Event Display: Discharge/Transfer Note Hospital Authored Date: [id number] Nursing Discharge Note Entered On: 06/18/2024 15:47 EST Performed On: 06/18/2024 14:56 EST by Kaur Lewis RN Nursing Discharge Note 2 Discharge Time : 06/18/2024 14:56 EST Discharge Level of Care at Discharge : Homehealth/VNA Discharge VNA/Hospice/Home Care(v001) : [facility] [phone] Patient Left Unit Via : Wheelchair Patient Accompanied Off Unit with : Responsible adult DC Instructions Provided & Signed by Pt : Yes Patient Understands D/C Instructions : Yes Verbalized Understanding of D/C Plan By : Patient Patient Instructions Discharge Signed : Yes Discharge Comments : IV removed, cannula tip intact. Pt able to state when to take next doses of all meds and when to make and attend all follow up appointments Did Pt have Specialty Bed or Wound Vac : No Kaur Lewis RN - 06/18/2024 15:46 EST * Erick Xavier MD: PERFORM Event Display: Discharge/Transfer Note Hospital Authored Date: [id number] Patient: ??TL STONE ? Age:??83 Years?Sex:??Female?:??1940?? 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) Seizure disorder (G40.909) Cough with hemoptysis (R04.2) Hypertension (I10) Hyperlipidemia (E78.5) Hypothyroidism (E03.9) Breast cancer (C50.919) Depression with anxiety (F41.8) _ Discharge Medications Amlodipine (amLODIPine 10 mg oral tablet)?10?Milligram?By Mouth?Daily Anastrozole (anastrozole 1 mg oral tablet)?1?tab(s)?1?Milligram?By Mouth?Daily Atenolol (atenolol 50 mg oral tablet)?50?Milligram?By Mouth?Daily Atorvastatin (Lipitor 40 mg oral tablet)?See Instructions?1 tablet By Mouth NCE A DAY?80?Milligram?2?tab(s)?By Mouth?Daily at Bedtime Cholecalciferol (Vitamin D3 oral tablet)?1?tab(s)?10?Microgram?By Mouth?Daily Docusate?100?Milligram?By Mouth?2 times a day?Hold for diarrhea Levothyroxine (levothyroxine 0.05 mg oral tablet)?1?tab(s)?50?Microgram?By Mouth?Daily Lidocaine Topical (lidocaine 5% topical film)?See Instructions?1 patch to each upper back/shoulder for 12 hrs every day Lorazepam (LORazepam 0.5 mg oral tablet)?1?tab(s)?0.5?Milligram?By Mouth?2 times a day?as needed?as needed for anxiety Mirtazapine (mirtazapine 15 mg oral tablet)?1?tab(s)?15?Milligram?By Mouth?Daily at bedtime Oxcarbazepine (OXcarbazepine 300 mg oral tablet)?300?Milligram?1?tablet?By Mouth?Daily in AM Oxcarbazepine (OXcarbazepine 300 mg oral tablet)?450?Milligram?1.5?tablet?By Mouth?Daily at bedtime ? Allergies Allergies ?(Active and Proposed Allergies Only) sertraline? (Severity: Unknown severity, Onset: Unknown) aspirin? (Severity: Unknown severity, Onset: Unknown) Dilantin? (Severity: Unknown severity, Onset: Unknown) ? PCP Follow-Up/Heads-Up ?? Prompt f/u with PCP & Neurology??for post-discharge eval, medication adjustments & plan of care ?? -- Future Appointments Monday 3:00 PM EDT ?? With: Camilla VEGA, Rodney Where: [facility] [address] [place] [address], [address] [place] [id number]- Status: Pending Objective Assessment and Plan ? Assessment:? Ms. Stone is our sweet and pleasant 83 y.o. 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 breast cancer s/p left-side??lumpectomy??(02/2023 at [facility]) on anastrozole,??generalized anxiety disorder / depression, h.o. left knee meniscal tear s/p surgical repair (02/2009, Dr. Bailey) / right knee meniscal tear s/p surgical repair (09/2014, Dr. Bailey), admitted on 06/14/2024 to the MICU as a direct transfer from the ER at [facility]??with a left fronto-parieto- temporal SAH / left temporal horn??intraparenchymal??hemorrhage.?? s/p neuroangiography c.w. 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 Triaged out of MICU to[facility] on 06/15/2024 Triaged out of [facility] to [facility]??on 06/17/2024 ?? Left-side zykxtx-rhbtqjd-lztvdbur subarachnoid hemorrhage (I60.9):??. 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 Seizure disorder (G40.909):? Neurology input much appreciated Despite all of the above, she looks great, with no reina neurologic??deficit?? MRI with / without contrast??(-) for??underlying mass Triaged out of MICU to[facility] on 06/15/2024 Triaged out of [facility] to [facility]??on 06/17/2024 Plan:?? * Awaiting final note / report from neuroangiography * On oxcarbazepine * Close outpatient f/u with PCP & Neurology ?? Cough with hemoptysis (R04.2):? Very scant amount, but causing a lot of anxiety CXR??(-) IMPRESSION: No acute abnormality. Repeat COVID-19 (-)? Hypertension (I10):??. Hyperlipidemia (E78.5):? On atenolol + amlodipine + atorvastatin ?? Hypothyroidism (E03.9):? On levothyroxine ?? Breast cancer (C50.919):? On anastrozole ?? Depression with anxiety (F41.8):? On mirtazapine + PRN lorazepam ? -- ? Vital Signs?? Temperature: 98.1 DegF (06/18/24 01:00:00) Temperature Route: Oral (06/18/24 01:00:00) Pulse Rate: 82 bpm (06/18/24 08:09:00) Respiratory Rate: 16 br/min (06/18/24 12:11:00) Vented: No (06/17/24 20:12:00) Systolic Blood Pressure: 138 mm Hg (06/18/24 08:09:00) Systolic Blood Pressure: 138 mm Hg (06/18/24 08:09:00) Systolic Blood Pressure: 138 mm Hg (06/18/24 08:09:00) Diastolic Blood Pressure:??87 mm Hg??High (06/18/24 08:09:00) Diastolic Blood Pressure:??87 mm Hg??High (06/18/24 08:09:00) Diastolic Blood Pressure:??87 mm Hg??High (06/18/24 08:09:00) Blood pressure sites: Arm, right (06/18/24 08:00:00) Pulse Pressure: 71 mm Hg (06/18/24 01:00:00) Oxygen Saturation: 99 % (06/18/24 01:00:00) Mode of Delivery (Oxygen): Room air (06/18/24 01:00:00) Early Warning Score: 0 (06/18/24 11:16:00) ? . Physical Exam Afebrile, Tmax = 98.1 F, HR = 82', BP = 138??/ 67 Normocephalic, NEL, no thrush, on room air Clear chest to auscultation S1 / S2 no murmur [place] abdomen, no rebound LEs (-) for edema.?? Neurologically grossly non-focal Follow-Up Appointments Added Follow Up ?Time Frame ?Comments [facility] Flynn VEGA, Kelvin Sampson MD, Rodney ?? FIRST AVAILABLE Results Test Name Test Result Date/Time WBC 9.4 k/mm3 06/18/2024 06:31 EST Hgb 10.1 Gm/dL 06/18/2024 06:31 EST Hct 30.7 % 06/18/2024 06:31 EST Platelet Count 246 k/mm3 06/18/2024 06:31 EST Sodium 138 mmol/L 06/18/2024 06:31 EST Potassium 4.5 mmol/L 06/18/2024 06:31 EST Chloride 102 mmol/L 06/18/2024 06:31 EST Bicarbonate Level 27 mmol/L 06/18/2024 06:31 EST Anion Gap 9 06/18/2024 06:31 EST BUN 14 mg/dL 06/18/2024 06:31 EST Creatinine-Blood 0.81 mg/dL 06/18/2024 06:31 EST Estimated GFR Creatinine 73 ML/MIN/1.73 M2 06/18/2024 06:31 EST Phosphorus 3.8 mg/dL 06/18/2024 06:31 EST Magnesium 2.4 mg/dL 06/18/2024 06:31 EST ?? 40??minutes spent on discharge summary / bedside care / coordination of care * Morenita VEGA, Erick: PERFORM Event Display: Discharge/Transfer Note Hospital Authored Date: ?? * [id number] ATTESTATION ENCOUNTER CM informs me that she will have [facility] services for SN / PT - Nursing services for medication??management /??safety evaluation / stroke education - PT services for home PT regimen / fall prevention / ROM / stroke recovery - List of diagnoses below, especially Ash-ash disease with left-side uuqcni-dhseqsz-amlmumsz SAH & left temporal horn hemorrhagic intraparenchymal stroke. - Homebound due to??stroke / weakness /??difficulty with stairs & weight-bearing ? -- ?? * Joshua ELI, Kaur: PERFORM Event Display: Patient Education/Instruction Authored Date: Inpatient Adult Discharge Instructions. [address] [address] Name: TL STONE : 1940?? Visit: 06/14/2024 05:06?? Current Date: 06/18/2024 13:58 ?? Account: [id number]?? Inpatient Adult Discharge Instructions We would like to thank you for allowing us to assist you with your healthcare needs. The following includes patient education materials and information regarding your injury/illness. Our entire staffstrives to provide an excellent experience for our patients and their families. PLEASE ENSURE YOU FOLLOW-UP PER THE INSTRUCTIONS BELOW! ?? YOUR OPINION IS IMPORTANT TO US! Please complete the survey you may receive by mail or email. Your feedback will be used to make improvements to the healthcare experiences of our patients and their families. Surveys are administered by [employer] ?? If further treatment with your primary care physician or another doctor is recommended, it is important for you to keep the appointment. Call your primary care physician or return to the Emergency Department immediately if your condition worsens, fails to improve, or new symptoms develop. If you need to find a doctor, you can call [facility] Link for a referral at [phone] or toll free at [phone]) or log in to [email or web address] ?? [facility], in keeping with [facility] guidance, no longer requires face masks for staff, patientsor visitors in most situations. Similiar to time spent indoors at other locations, there is the chance that you were exposed to repiratory viruses during your time with us (such as flu or COVID-19). If you develop symptoms concerning for a viral respiratory infection, please seek testing (and treatment if indicated) from your medical provider or home test kit. ?? You can view and manage your care through the patient portal or by using a health care holly of your choosing. [employer] is a website that allows you to securely view your medical information including your hospital discharge summary, office visit summaries, medications and follow-up visits. You can also request appointments, renew medications, and request access to your medical information using a health care holly of your choosing, or just ask a question. You can enroll at [email or web address] or register during your next office visit. You have been discharged from [facility], Patient Care Unit: [facility]??. If you have any questions regarding these instructions, including results of studies pending, afteryou leave, please call us and we will be happy to assist you 19/12. [facility] Your Care Team Attending Physician Erick Xavier MD?? Consulting Providers Erick Xavier MD?? Discharging Providers Erick Xavier MD Reason for Your Visit SAH, IPH?? 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 You may have had other tests and procedures not included in this list. Please discuss all test results with your provider. Basic Metabolic Panel BUN CBC CBC w/ Differential COVID-19 (2019 Novel Coronavirus) PCR Creatinine GLUCOSE POC Lactate Level Lactic Acid Level LFT's Lytes Magnesium Level Phosphorus Level PT (INR) CT Angio Head CT Angio Neck CT Head/Brain W/O Contrast CXR W/ Frontal and Lat MRI Brain W+W/O Contrast Add On Lab Order?? BUN?? Basic Metabolic Panel?? CBC?? CBC w/ Differential?? COVID-19 (2019 Novel Coronavirus) PCR?? CT Angio Head?? CT Angio Neck?? CT Head/Brain W/O Contrast?? Creatinine?? Electrolytes (Lytes)?? Glucose POC?? Hepatic Function Panel (LFT's)?? INR (PT (INR))?? Lactic Acid Level?? MRI Brain W+W/O Contrast?? Magnesium Level?? Oxcarbazepine Level?? Phosphorus Level?? Chest 2 Views Frontal and Lat (CXR W/ Frontal and Lat)?? Primary Care Provider Kelvin Pruett MD? Advance Directive Health Care Proxy on File Yes - Health Care Proxy Discharge Vitals Temperature: 99 DegF Height: 160 cm Pulse Rate: 75 bpm Weight: 72.6 kg Respiratory Rate: 16 br/min Body Mass Index:??28.36 kg/m2??High Systolic Blood Pressure:??143 mm Hg??High Body surface area: 1.8 Diastolic Blood Pressure: 61 mm Hg ?? Oxygen Saturation: 97 % ?? Studies Pending All studies ordered during this hospital stay have been completed unless listed below. Please discuss all pending results with your provider listed above in these instructions. ?? Add On Lab Order?? Oxcarbazepine Level?? What to do next Instructions From Your Doctor ?? Orders? 01/21/25 12:45:00 EST?? Scheduled Follow-Up Appointments Monday 3:00 PM EDT ?? With: Rodney Sampson MD Where: [facility] [address], [address] [place] [id number]- Status: Pending You Need to Schedule the Following Appointments Follow Up with??[facility] Follow Up with??Flynn VEGA, Kelvin Elizabeth Where: [address] [place] [address] Drive [address] [place] [address]- Follow Up with??Rodney Sampson MD Where: [address], [address], [address] [place] [address]- Discharge Medications TL STONE :1940 Visit Date:06/14/2024 Medications: Please continue your medications until treatment is completed or stopped by your provider. Medications not listed below should be discontinued. Discuss any questions related to medications with your provider. What How Much When Instructions Next Dose Changed Oxcarbazepine (OXcarbazepine 300 mg oral tablet) 1.5 tab(s) Oral Daily at Bedtime Changed Oxcarbazepine (OXcarbazepine 300 mg oral tablet) 1 tab(s) Oral Daily in the morning Unchanged Amlodipine (amLODIPine 10 mg oral tablet) 10 Milligram Oral Daily Unchanged Anastrozole (anastrozole 1 mg oral tablet) 1 tab(s) Oral Daily Unchanged Atenolol (atenolol 50 mg oral tablet) 50 Milligram Oral Daily Unchanged Atorvastatin (Lipitor 40 mg oral tablet) 2 tab(s) Oral Daily at Bedtime Unchanged Cholecalciferol (Vitamin D3 oral tablet) 1 tab(s) Oral Daily Unchanged Docusate 100 Milligram Oral Twice a day Hold for diarrhea ?? Unchanged Levothyroxine (levothyroxine 0.05 mg oral tablet) 1 tab(s) Oral Daily Unchanged Lidocaine Topical (lidocaine 5% topical film) See instructions 1 patch to each upper back/ shoulder for 12 hrs every day ?? . Unchanged Lorazepam (LORazepam 0.5 mg oral tablet) 1 tab(s) Oral Twice a day as needed for as needed for anxiety Unchanged Mirtazapine (mirtazapine 15 mg oral tablet) 1 tab(s) Oral Daily at Bedtime Prescription Given During Visit No new medications prescribed at time of discharge.?? Laboratory Results Below is a partial list of the most recent Laboratory test results done prior to this discharge. You may have had other tests and procedures not included in this list. Please discuss all test resultswith your provider. Est Creatinine Clearance - 45.04 mL/min (06/18/2024) Basic Metabolic Panel (06/17/2024) ???Sodium - 139 mmol/L???Potassium - 4.5 mmol/L???Chloride - 106 mmol/L???Bicarbonate Level - 24 mmol/L???Anion Gap - 9???Glucose Level - 98 mg/dL???BUN - 16 mg/dL???Creatinine-Blood - 0.78 mg/dL???Estimated GFR Creatinine - 76 ML/MIN/1.73 M2???Calcium - 9.2 mg/dL BUN (06/18/2024) ???BUN - 14 mg/dL CBC (06/18/2024) ???WBC - 9.4 k/mm3???RBC - 3.27 m/mm3???Hgb - 10.1 Gm/dL???Hct - 30.7 %???MCV - 93.9 femtoliters???MCH - 30.9 pg???MCHC - 32.9 Gm/dL???Platelet Count - 246 k/mm3???RDW-SD - 44.0 femtoliters???MPV - 9.9 femtoliters???Nucleated RBC (Automated) - 0.0 #/100 WBC'S???Abs. NRBC - 0.0 k/mm3 CBC w/ Differential (06/16/2024) ???WBC - 9.6 k/mm3???RBC - 3.16 m/mm3???Hgb - 9.8 Gm/dL???Hct - 29.5 %???MCV - 93.4 femtoliters???MCH - 31.0 pg???MCHC - 33.2 Gm/dL???Platelet Count - 230 k/mm3???RDW-SD - 44.0 femtoliters???MPV - 9.6 femtoliters???Nucleated RBC (Automated) - 0.0 #/100 WBC'S???Abs. NRBC - 0.0 k/mm3???Abs. Neut - 7.5 k/mm3???Abs. Lymph - 1.3 k/mm3???Abs. [place] - 0.6 k/mm3???Abs. Eo - 0.2 k/mm3???Abs. Baso - 0.0 k/mm3???Neut % - 77.7 %???Lymph % - 13.9 %???[place] % - 6.0 %???Eos % - 1.6 %???Baso % - 0.3 %???Imm Gran- 0.5 %???Abs. Imm Gran - 0.1 k/mm3 COVID-19 (2019 Novel Coronavirus) PCR (06/17/2024) ???COVID-19 PCR Specimen Source - NASAL???COVID-19 PCR Result - NEGATIVE Creatinine (06/18/2024) ???Creatinine-Blood - 0.81 mg/dL???Estimated GFR Creatinine - 73 ML/MIN/1.73 M2 GLUCOSE POC (06/18/2024) ???Glucose, POC - 107 mg/dL Lactate Level (06/14/2024) ???Lactate - 2.5 mmol/L Lactic Acid Level (06/15/2024) ???Lactate - 0.9 mmol/L LFT's (06/14/2024) ???Protein, Total - 7.1 Gm/dL???Albumin - 4.2 Gm/dL???Alkaline Phosphatase - 115 units/L???AST (SGOT) - 17 units/L???ALT (SGPT) - 12 units/L???Bilirubin, Total - 0.2 mg/dL???Bilirubin, Direct - 0.1 mg/dL???Bilirubin, Indirect - 0.1 mg/dL Lytes (06/18/2024) ???Sodium - 138 mmol/L???Potassium - 4.5 mmol/L???Chloride - 102 mmol/L???Bicarbonate Level - 27 mmol/L???Anion Gap - 9 Magnesium Level (06/18/2024) ???Magnesium - 2.4 mg/dL Phosphorus Level (06/18/2024) ???Phosphorus - 3.8 mg/dL PT (INR) (06/14/2024) ???INR - 1.0???Protime (PT) - 10.9 seconds You will be contacted within 72 hours with your results. Allergies (NKA means No Known Allergies) Dilantin aspirin sertraline Problems Active Problems??(4) CVA?? HIGH CHOLESTEROL?? HTN?? ASH ASH?? Education Materials Below is the list of Educational Leaflet Providered with your Discharge Instructions. [employer] Patient Education - Hemorrhagic Stroke: Subarachnoid Hemorrhage?? Valuables and Belongings I fully understand and agree that [facility] accepts no responsibility for all my personal property including clothing, toilet articles, radios, jewelry, dentures, hearing aids, rings, money, or any other property that is in my possession or is brought to me after admission. I understand certain valuables may be placed in a hospital safe for a short period of time. I understand that the hospital is not liable for loss or damage due to accident, fire, or other natural occurrence while said property is in the safe. I accept full responsibility for any personal property that I keep with me, and will not hold the hospital responsible in case of loss or disappearance. I acknowledge that i have been encouraged to send valuables and belongings home. ?? Review of Valuable and Belonging List: With patient Date for Pt to Sign Valuables/Belongings: 06/14/24 07:25:00 ?? Other Discharge Information ? Case Management Discharge Plan?? Discharge Plan?? Discharge Agency Information?? Discharge Level of Care at Discharge: Homehealth/VNA Name of Agency #1: [facility] Discharge VNA/Hospice/Home Care: [facility] [phone] Service Categories #1: Physical Therapy, Nursing Home ?? [facility] If you do ??not hear from them please call [phone] ?? Pulmonary Rehab Status?? Pulmonary Rehab Discharge Status?? Respiratory Rate: 16 br/min ? Common Emergency Awareness Tips IS IT A STROKE? Act FAST and Check for these signs: FACE Does the face look uneven? ARM Does one arm drift down? SPEECH Does their speech sound strange? TIME Call at any sign of stroke ?? Heart Attack Signs Chest discomfort: Most heart attacks involve discomfort in the center of the chest and lasts more than a few minutes, or goes away and comes back. It can feel like uncomfortable pressure, squeezing, fullness or pain. Discomfort in upper body: Symptoms can include pain or discomfort in one or both arms, back, neck, jaw or stomach. Shortness of breath: With or without discomfort. Other signs: Breaking out in a cold sweat, nausea, or lightheaded. Remember, MINUTES DO MATTER. If you experience any of these heart attack warning signs, call to get immediate medical attention! ?? Smoking can increase your chances of developing chronic health problems and can cause harmful effects to other family members in your house. If you smoke, you are strongly encouraged to quit. Please call [facility] Link at [phone] or [phone] Pages ([phone]) or log in to [email or web address] for referrals to smoking cessation programs. ?? 517 Suicide & Crisis Lifeline is available 19/12 if you or someone you know needs to find a reason to keep living. By calling 567 you'll be connected to a skilled, trained counselor at a crisis center in your area. INPATIENT DISCHARGE INSTRUCTIONS SIGNATURE PAGE YadyALVATRISTATL Location:[facility] Registration Date and Time:06/14/2024 05:06 EST Primary Care Physician: Kelvin Pruett MD, Attending Physician: Erick Xavier MD, I TL STONE, have received the above patient education materials/instructions and have verbalized understanding. If ambulance or transport services are being used I further acknowledge being given a choice of service. ?? If you need to contact me, please call me at this number: . Patient/Family Law Mediator Name: Patient/Family Law Mediator Signature: Relationship to Patient: Witness Name/Signature: Date: * Kaur Lewis RN: PERFORM Event Display: Patient Education/Instruction Authored Date: [id number] Inpatient Adult Discharge Instructions. [place] [id number] Name: TL STONE : 1940?? Visit: 06/14/2024 05:06?? Current Date: 06/18/2024 13:45 ?? Account: [id number]?? Inpatient Adult Discharge Instructions We would like to thank you for allowing us to assist you with your healthcare needs. The following includes patient education materials and information regarding your injury/illness. Our entire staffstrives to provide an excellent experience for our patients and their families. PLEASE ENSURE YOU FOLLOW-UP PER THE INSTRUCTIONS BELOW! ?? YOUR OPINION IS IMPORTANT TO US! Please complete the survey you may receive by mail or email. Your feedback will be used to make improvements to the healthcare experiences of our patients and their families. Surveys are administered by [employer] ?? If further treatment with your primary care physician or another doctor is recommended, it is important for you to keep the appointment. Call your primary care physician or return to the Emergency Department immediately if your condition worsens, fails to improve, or new symptoms develop. If you need to find a doctor, you can call [facility] Link for a referral at [phone] or toll free at [phone]) or log in to [email or web address].. ?? [facility], in keeping with [facility] guidance, no longer requires face masks for staff, patientsor visitors in most situations. Similiar to time spent indoors at other locations, there is the chance that you were exposed to repiratory viruses during your time with us (such as flu or COVID-19). If you develop symptoms concerning for a viral respiratory infection, please seek testing (and treatment if indicated) from your medical provider or home test kit. ?? You can view and manage your care through the patient portal or by using a health care holly of your choosing. [employer] is a website that allows you to securely view your medical information including your hospital discharge summary, office visit summaries, medications and follow-up visits. You can also request appointments, renew medications, and request access to your medical information using a health care holly of your choosing, or just ask a question. You can enroll at [email or web address] or register during your next office visit. You have been discharged from [facility], Patient Care Unit: D5A??. If you have any questions regarding these instructions, including results of studies pending, afteryou leave, please call us and we will be happy to assist you 19/12. [facility] Your Care Team Attending Physician Erick Xavier MD?? Consulting Providers Erick Xavier MD?? Discharging Providers Erick Xavier MD Reason for Your Visit SAH, IPH?? 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 You may have had other tests and procedures not included in this list. Please discuss all test results with your provider. Basic Metabolic Panel BUN CBC CBC w/ Differential COVID-19 (2019 Novel Coronavirus) PCR Creatinine GLUCOSE POC Lactate Level Lactic Acid Level LFT's Lytes Magnesium Level Phosphorus Level PT (INR) CT Angio Head CT Angio Neck CT Head/Brain W/O Contrast CXR W/ Frontal and Lat MRI Brain W+W/O Contrast Add On Lab Order?? BUN?? Basic Metabolic Panel?? CBC?? CBC w/ Differential?? COVID-19 (2019 Novel Coronavirus) PCR?? CT Angio Head?? CT Angio Neck?? CT Head/Brain W/O Contrast?? Creatinine?? Electrolytes (Lytes)?? Glucose POC?? Hepatic Function Panel (LFT's)?? INR (PT (INR))?? Lactic Acid Level?? MRI Brain W+W/O Contrast?? Magnesium Level?? Oxcarbazepine Level?? Phosphorus Level?? Chest 2 Views Frontal and Lat (CXR W/ Frontal and Lat)?? Primary Care Provider Kelvin Pruett MD? Advance Directive Health Care Proxy on File Yes - Health Care Proxy Discharge Vitals Temperature: 99 DegF Height: 160 cm Pulse Rate: 75 bpm Weight: 72.6 kg Respiratory Rate: 16 br/min Body Mass Index:??28.36 kg/m2??High Systolic Blood Pressure:??143 mm Hg??High Body surface area: 1.8 Diastolic Blood Pressure: 61 mm Hg ?? Oxygen Saturation: 97 % ?? Studies Pending All studies ordered during this hospital stay have been completed unless listed below. Please discuss all pending results with your provider listed above in these instructions. ?? Add On Lab Order?? Oxcarbazepine Level?? What to do next Instructions From Your Doctor ?? Orders? 06/18/24 12:45:00 EST?? Scheduled Follow-Up Appointments Monday 3:00 PM EDT ?? With: Rodney Sampson MD Where: [facility] [address] [facility] 3rd Floor, [address] [place] [address]- Status: Pending You Need to Schedule the Following Appointments Follow Up with??[facility] Follow Up with??Kelvin Pruett MD Where: [address] [place] [address] [place] [address]- Follow Up with??Camilla VEGA, Rodney Where: [address] [facility], 3rd Floor, [address] [place] [address]- Discharge Medications TL STONE :1940 Visit Date:06/14/2024 Medications: Please continue your medications until treatment is completed or stopped by your provider. Medications not listed below should be discontinued. Discuss any questions related to medications with your provider. What How Much When Instructions Next Dose Changed Oxcarbazepine (OXcarbazepine 300 mg oral tablet) 1.5 tab(s) Oral Daily at Bedtime Tonight 06/18/24 9pm Changed Oxcarbazepine (OXcarbazepine 300 mg oral tablet) 1 tab(s) Oral Daily in the morning Tomorrow 06/19/24 9am Unchanged Amlodipine (amLODIPine 10 mg oral tablet) 10 Milligram Oral Daily Tomorrow 06/19/24 9am Unchanged Anastrozole (anastrozole 1 mg oral tablet) 1 tab(s) Oral Daily Tomorrow 06/19/24 9am Unchanged Atenolol (atenolol 50 mg oral tablet) 50 Milligram Oral Daily Tomorrow 06/19/24 9am Unchanged Atorvastatin (Lipitor 40 mg oral tablet) 2 tab(s) Oral Daily at Bedtime Tonight 06/18/24 9pm Unchanged Cholecalciferol (Vitamin D3 oral tablet) 1 tab(s) Oral Daily Tomorrow 06/19/24 9am Unchanged Docusate 100 Milligram Oral Twice a day Hold for diarrhea ?? Tonight 06/18/24 9pm Unchanged Levothyroxine (levothyroxine 0.05 mg oral tablet) 1 tab(s) Oral Daily Tomorrow 06/19/24 7am Unchanged Lidocaine Topical (lidocaine 5% topical film) See instructions 1 patch to each upper back/ shoulder for 12 hrs every day ?? Not given, Resume as prescribed Unchanged Lorazepam (LORazepam 0.5 mg oral tablet) 1 tab(s) Oral Twice a day as needed for as needed for anxiety Take as prescribed Unchanged Mirtazapine (mirtazapine 15 mg oral tablet) 1 tab(s) Oral Daily at Bedtime Tonight 06/18/24 9pm Prescription Given During Visit No new medications prescribed at time of discharge.?? Laboratory Results Below is a partial list of the most recent Laboratory test results done prior to this discharge. You may have had other tests and procedures not included in this list. Please discuss all test resultswith your provider. Est Creatinine Clearance - 45.04 mL/min (06/18/2024) Basic Metabolic Panel (06/17/2024) ???Sodium - 139 mmol/L???Potassium - 4.5 mmol/L???Chloride - 106 mmol/L???Bicarbonate Level - 24 mmol/L???Anion Gap - 9???Glucose Level - 98 mg/dL???BUN - 16 mg/dL???Creatinine-Blood - 0.78 mg/dL???Estimated GFR Creatinine - 76 ML/MIN/1.73 M2???Calcium - 9.2 mg/dL BUN (06/18/2024) ???BUN - 14 mg/dL CBC (06/18/2024) ???WBC - 9.4 k/mm3???RBC - 3.27 m/mm3???Hgb - 10.1 Gm/dL???Hct - 30.7 %???MCV - 93.9 femtoliters???MCH - 30.9 pg???MCHC - 32.9 Gm/dL???Platelet Count - 246 k/mm3???RDW-SD - 44.0 femtoliters???MPV - 9.9 femtoliters???Nucleated RBC (Automated) - 0.0 #/100 WBC'S???Abs. NRBC - 0.0 k/mm3 CBC w/ Differential (06/16/2024) ???WBC - 9.6 k/mm3???RBC - 3.16 m/mm3???Hgb - 9.8 Gm/dL???Hct - 29.5 %???MCV - 93.4 femtoliters???MCH - 31.0 pg???MCHC - 33.2 Gm/dL???Platelet Count - 230 k/mm3???RDW-SD - 44.0 femtoliters???MPV - 9.6 femtoliters???Nucleated RBC (Automated) - 0.0 #/100 WBC'S???Abs. NRBC - 0.0 k/mm3???Abs. Neut - 7.5 k/mm3???Abs. Lymph - 1.3 k/mm3???Abs. [place] - 0.6 k/mm3???Abs. Eo - 0.2 k/mm3???Abs. Baso - 0.0 k/mm3???Neut % - 77.7 %???Lymph % - 13.9 %???[place] % - 6.0 %???Eos % - 1.6 %???Baso % - 0.3 %???Imm Gran- 0.5 %???Abs. Imm Gran - 0.1 k/mm3 COVID-19 (2019 Novel Coronavirus) PCR (06/17/2024) ???COVID-19 PCR Specimen Source - NASAL???COVID-19 PCR Result - NEGATIVE Creatinine (06/18/2024) ???Creatinine-Blood - 0.81 mg/dL???Estimated GFR Creatinine - 73 ML/MIN/1.73 M2 GLUCOSE POC (06/18/2024) ???Glucose, POC - 107 mg/dL Lactate Level (06/14/2024) ???Lactate - 2.5 mmol/L Lactic Acid Level (06/15/2024) ???Lactate - 0.9 mmol/L LFT's (06/14/2024) ???Protein, Total - 7.1 Gm/dL???Albumin - 4.2 Gm/dL???Alkaline Phosphatase - 115 units/L???AST (SGOT) - 17 units/L???ALT (SGPT) - 12 units/L???Bilirubin, Total - 0.2 mg/dL???Bilirubin, Direct - 0.1 mg/dL???Bilirubin, Indirect - 0.1 mg/dL Lytes (06/18/2024) ???Sodium - 138 mmol/L???Potassium - 4.5 mmol/L???Chloride - 102 mmol/L???Bicarbonate Level - 27 mmol/L???Anion Gap - 9 Magnesium Level (06/18/2024) ???Magnesium - 2.4 mg/dL Phosphorus Level (06/18/2024) ???Phosphorus - 3.8 mg/dL PT (INR) (06/14/2024) ???INR - 1.0???Protime (PT) - 10.9 seconds You will be contacted within 72 hours with your results. Allergies (NKA means No Known Allergies) Dilantin aspirin sertraline Problems Active Problems??(4) CVA?? HIGH CHOLESTEROL?? HTN?? ASH ASH?? Education Materials Below is the list of Educational Leaflet Providered with your Discharge Instructions. Valuables and Belongings I fully understand and agree that [facility] accepts no responsibility for all my personal property including clothing, toilet articles, radios, jewelry, dentures, hearing aids, rings, money, or any other property that is in my possession or is brought to me after admission. I understand certain valuables may be placed in a hospital safe for a short period of time. I understand that the hospital is not liable for loss or damage due to accident, fire, or other natural occurrence while said property is in the safe. I accept full responsibility for any personal property that I keep with me, and will not hold the hospital responsible in case of loss or disappearance. I acknowledge that i have been encouraged to send valuables and belongings home. ?? Review of Valuable and Belonging List: With patient Date for Pt to Sign Valuables/Belongings: 06/14/24 07:25:00 ?? Other Discharge Information ? Pulmonary Rehab Status?? Pulmonary Rehab Discharge Status?? Respiratory Rate: 16 br/min ? Common Emergency Awareness Tips IS IT A STROKE? Act FAST and Check for these signs: FACE Does the face look uneven? ARM Does one arm drift down? SPEECH Does their speech sound strange? TIME Call at any sign of stroke ?? Heart Attack Signs Chest discomfort: Most heart attacks involve discomfort in the center of the chest and lasts more than a few minutes, or goes away and comes back. It can feel like uncomfortable pressure, squeezing, fullness or pain. Discomfort in upper body: Symptoms can include pain or discomfort in one or both arms, back, neck, jaw or stomach. Shortness of breath: With or without discomfort. Other signs: Breaking out in a cold sweat, nausea, or lightheaded. Remember, MINUTES DO MATTER. If you experience any of these heart attack warning signs, call to get immediate medical attention! ?? Smoking can increase your chances of developing chronic health problems and can cause harmful effects to other family members in your house. If you smoke, you are strongly encouraged to quit. Please call [facility] Link at [phone] or [phone] ([phone]) or log in to [email or web address] for referrals to smoking cessation programs. ?? 417 Suicide & Crisis Lifeline is available 19/12 if you or someone you know needs to find a reason to keep living. By calling 815 you'll be connected to a skilled, trained counselor at a crisis center in your area. INPATIENT DISCHARGE INSTRUCTIONS SIGNATURE PAGE YadyTL COFFEY Location:[facility] Registration Date and Time:06/14/2024 05:06 EST Primary Care Physician: Flynn VEGA, Kelvin Johnson, Attending Physician: Erick Xavier MD, I TL STONE, have received the above patient education materials/instructions and have verbalized understanding. If ambulance or transport services are being used I further acknowledge being given a choice of service. ?? If you need to contact me, please call me at this number: . Patient/Family Law Mediator Name: Patient/Family Law Mediator Signature: Relationship to Patient: Witness Name/Signature: Date: * Kaur Lewis RN: PERFORM Event Display: Patient Education Leaflets Authored Date: [id number] Hemorrhagic Stroke: Subarachnoid Hemorrhage ?? [id number] Hemorrhagic Stroke: Subarachnoid Hemorrhage A hemorrhagic stroke happens when a blood vessel in the brain ruptures or leaks. A blood vessel on the surface of the brain bursts and bleeds (hemorrhages). This spills blood into the subarachnoid space around the brain and sometimes into the brain. The arachnoid is one of the 3 membranes that surround the brain. In a subarachnoid hemorrhage, the blood leaks under this membrane and around the brai n (in the subarachnoid space). This type of stroke often happens suddenly, with little warning. It's the most serious of all typesof strokes. What happens during a subarachnoid hemorrhage? This type of stroke happens when a major blood vessel bursts on the surface of the brain. Normally,the subarachnoid space is filled with a clear fluid, the cerebrospinal fluid (CSF). When the blood vessel bursts, blood flows into the CSF. The amount of fluid in the subarachnoid space increases andputs pressure on the brain. This extra blood and CSF is named hydrocephalus. In addition to flowingaround the brain, blood can also enter and damage the brain. Blood in the brain is called a brain hematoma or blood clot. Most of these strokes happen when a cerebral aneurysm or arteriovenous malformations bursts. An aneurysm is a weak spot in the wall of a blood vessel. A bubble often forms in this weak spot. In some cases, a cerebral aneurysm causes pain or other symptoms. In most cases, though, an aneurysm causes no symptoms until it bursts. ?? What are the symptoms of a subarachnoid hemorrhage? Any stroke is a medical emergency. If you have any of these symptoms, even if they seem to get better, call 911 right away: ??? Sudden, excruciating headache with no known cause ??? Nausea and vomiting (often with headache) ??? Sudden confusion or decrease in alertness ??? Trouble moving or loss offeeling, especially on the face, arm, or leg specifically on one side of the body ??? Sudden trouble walking, dizziness, loss of balance or coordination ??? Sudden trouble talking or understanding speech? Sudden mood changes ??? Sudden dimness, double vision, or loss of vision, particularly in one eye ??? Eyes suddenly very sensitive to light ??? Neck and shoulder pain or stiff neck ??? Seizure ?? How is a hemorrhagic stroke treated??? The short-term (acute) phase lasts from the first minutes to hours after symptoms start. During this phase, treatment focuses on easing pressure on the brain and preventing more damage. You may have a procedure or surgery to repair the burst (ruptured) aneurysm. A drain may be placed into the brainto remove CSF and ease pressure to treat the hydrocephalus. This drain can also be used to measure the brain pressure. You may get medicines through an IV line to control blood pressure. You may alsoget seizure medicine. Tests will likely be done to check for other aneurysms in the brain. If they are found, you may need surgery to reduce the risk that they will burst and bleed. Even if there is no more risk of bleeding, after a subarachnoid hemorrhage people are at risk of a stroke from tightening of the blood vessels (vasospasm) for about 14 days. After the acute phase, treatment focuses on recovery. Long-term damage from a stroke can include paralysis, trouble speaking or understanding, and trouble thinking clearly. Rehab can help reduce these effects and regain skills. Rehab starts in the hospital and generally??continues in an inpatient or outpatient facility, and eventually at home. It will focus on regaining lost skills. It may include: ??? Help regaining movement ??? Therapy for speech and language ??? Help with swallowing ??? Help reducing risk factors for another stroke, such as smoking In addition, medicines that help prevent another stroke may be given. These include medicines to control blood pressure and prevent bleeding. ?? Last Reviewed Date: 2021 ?? [id number] The [employer]. All rights reserved. This information is not intended as a substitute for professional medical care. Always follow your healthcare professional's instructions. ?? * Event Display: Hemodynamic Procedure Report Authored Date: Admission evaluation note * Maria E Boyer MD: PERFORM, MODIFY, MODIFY Event Display: Admission Note Authored Date: Patient: ??TL STONE ? Age:??83 Years?Sex:??Female?:??1940?? Chief Complaint/Reason for Consultation SAH History of Present Illness 83-year-old female with a past medical history of moyamoya syndrome with an intracranial hemorrhagein 2000 and subsequent development of a seizure disorder, hypertension, left-sided breast cancer?status postlumpectomy 2022 who is currently on anastrozole, History of left knee replacement,??recent knee replacement in November 2023 and subsequent discharged to physical rehab, and recent diagnosis of hyponatremia at [facility] presents for evaluation of decreased appetite, profound weakness and difficulty with ambulation,??Who presents as a transfer from [facility] for subarachnoid hemorrhage. ?? Patient woke up??Around 1:30 AM with sudden onset of headache and photophobia .?? He was transported to [facility] as a stroke alert given the right-sided facial droop which patient tells me that is chronic since her first brain bleed.?? CT scan done at outside hospital was consistent with subarachnoid hemorrhage, patient was given morphine 4 Mg twice, Zofran 4 Mg.?? Hospital Discussed Case with Dr. Shields, She Recommended Nicardipine Drip to Keep Patient Systolic Blood Pressure 140 over, Given There Is No Beds in Neurocritical Unit Patient accepted within Medical ICU. Lab work at the outside hospital showed Hemoglobin 11.1, WBC 11.0, hematocrit 33, platelet 254. EKG outside hospital showed sinus rhythm evolving to 80s, no ST segment changes reported. CT head with 1.3 cm intraparenchymal hematoma?in the medial left temporal lobe, subarachnoid hemorrhage in the left side of basilar cistern, left sylvian fissure left cerebral sulcal, along the left cerebral hemisphere. ?? Upon arrival to unit, patient was evaluated immediately, her NIH score was a 1 during which appearsto be chronic.?? She did however have a scheduled photophobia,?? She states that her healthcare proxy is her granddaughter.?? Patient is also to be full code.?? Her systolic was in 170s which nicardipine drip was started ? Review of Systems A full review of systems was completed and is otherwise negative except as mentioned in history of present illness. Objective Measurements?? Height: 160 cm (06/14/24) Weight: 72.6 kg (06/14/24) Dry Weight: 72.6 kg (06/14/24) Body Mass Index:??28.36 kg/m2??High (06/14/24) ? Vital Signs?? Temperature: 98 DegF (06/14/24 05:25:00) Temperature Route: Axillary (06/14/24 05:25:00) Pulse Rate: 87 bpm (06/14/24 05:25:00) Heart Rate Monitored: 82 bpm (06/14/24 06:00:07) Respiratory Rate:??15 br/min??Low (06/14/24 06:07:00) Vented: No (06/14/24 06:00:00) Systolic Blood Pressure: 134 mm Hg (06/14/24 06:00:00) Diastolic Blood Pressure:??52 mm Hg??Low (06/14/24 06:00:00) Blood pressure sites: Arm, left (06/14/24 06:00:00) Mean Arterial Pressure: 102 mm Hg (06/14/24 05:25:00) Pulse Pressure: 82 mm Hg (06/14/24 06:00:00) Oxygen Saturation:??91 %??Low (06/14/24 06:00:07) Mode of Delivery (Oxygen): Room air (06/14/24 06:00:00) ? Physical Exam Constitutional: Alert, with??frontal headache and photophobia Mental Status: Oriented to person, place and time. Head: Normocephalic. Eyes: Pupils are equal, round and reactive to light. Extraocular muscles intact. Neck: Supple, Full range of motion. Respiratory: Clear to auscultation. No wheezing, rales or rhonchi. Cardiovascular: S1 S2 regular. No murmurs, Gastrointestinal: Abdomen soft, non-tender, non-distended. Neurologic: Cranial nerves II-XII grossly intact. No focal neurological deficits. Flexor plantar response. Moves all extremities spontaneously. Sensation intact bilaterally.??Chronic Rfacial drop Musculoskeletal: no LE edema Psychiatric: Normal mood and affect Assessment/Plan Diagnoses Subarachnoid hemorrhage ??(I60.9) ?? 83-year-old female with a past medical history of morning hypertension, left- sided breast cancer?status postlumpectomy 2022 who is currently on anastrozole, History of left knee replacement,??recent knee replacement in November 2023 and subsequent discharged to physical rehab, and recent diagnosis of hyponatremia at [facility] presents for evaluation of decreased appetite, profound weakness and difficulty with ambulation,??Who presents as a transfer from [facility] for subarachnoid hemorrhage. ? Neuro/HEENT Acute nontraumatic subarachnoid hemorrhage Moyamoya syndrome with an intracranial hemorrhage in 2000 and subsequent development of a seizure disorder, CT head with 1.3 cm intraparenchymal hematoma?in the medial left temporal lobe, subarachnoid hemorrhage in the left side of basilar cistern, left sylvian fissure left cerebral sulcal, along the left cerebral hemisphere. NIH score 1 for chronic facial drop No focal deficit ?? Plan: ? -??Pain control: IV Tylenol 1 g Q6 hourly scheduled,??Dilaudid 1 g every 4 hourly??for breakthrough severe pain, ? -Neurochecks every hourly,??head of bed to 30 degree angle, ? -Nicardipine drip to maintain SBP less than 140 ? -Nimodipine??60 Mg every 4 hourly to prevent??delayed cerebral injury ? -Pneumoboots for DVT ? -She will need NSG??follow up soon ? - Stat CT and CTA head ?? Cardiovascular Hx of Hypertension Plan: ? -??holding home irbesartan and amlodipine? - SBP??<140 as mentioned above ?- c/w home atenelol and atorvastatin ? - site monitor ? - EKG PRN ?? Pulmonary no concerns ?? Gastroenterology no issues Plan: ? -??Famotidine 20 mg IV BID for GI ppx ?? Renal ?? Plan: ? - obtain BMP ? - Monitor I/O ? - Daily BMP ? - Avoid nephrotoxins ?? MSK/Integ No issues Plan: off loading ?? Heme/Onc ?? Ca Breast on Anastrozole Plan: ? - holding home anastrozole given uncertain??effects on coagulation ? - Monitor CBC ?? Endocrine Hypothyroidism Plan: ?- c/w home levo ? - POC Glucose ??Q6H??while NPO ? - SSI ? - Hypoglycemia measures ?? Infectious Disease no issues Plan: ? - Monitor fever and WBC curve ?? Quality Measures: Diet:??NPO??except meds once pass swallow eval DVT prophylaxis:??Pneumoboots Code Status:??FULL CODE??confirmed HCP is granddaughter. ? Patient has been??seen and discussed with Fellow Dr. Neri ?? Dr. Maria E Boyer Internal Medicine PGY2 [employer] ?? Please note:??[employer] services were used to dictate??the above note.?I apologize in advance for any??typos and miscommunications.?? Please reach out to me??for clarification.? Histories Allergies Allergies ?(Active and Proposed Allergies Only) sertraline? (Severity: Unknown severity, Onset: Unknown) aspirin? (Severity: Unknown severity, Onset: Unknown) Dilantin? (Severity: Unknown severity, Onset: Unknown) ? Past Medical History/Problem List No problems documented. ? Past Surgical History No surgery history documented. ? Social History Alcohol Details:??Use: Current. ??Frequency: 1-2 times per year. ??Type: Wine. Employment/School Details:??Status: Retired. Exercise Details:??Self assessment: Poor condition. Home/Environment Details:??Living situation: Home/Independent. Nutrition/Health Details:??Diet: Regular. Sexual Details:??Sexually involved in last 6 months: No. Substance Abuse Details:??Use: Never. Tobacco Details:??Former smoker, Other: quit >30yrs ago. Details:??Former smoker, Type: Cigarettes. ? Family History No Family History documented. ? Medications Home Medications Amlodipine (amLODIPine 10 mg oral tablet)?10?Milligram?By Mouth?Daily Anastrozole (anastrozole 1 mg oral tablet)?1?tab(s)?1?Milligram?By Mouth?Daily Atenolol (atenolol 50 mg oral tablet)?50?Milligram?By Mouth?Daily Atorvastatin (Lipitor 40 mg oral tablet)?See Instructions?1 tablet By Mouth NCE A DAY?80?Milligram?2?tab(s)?By Mouth?Daily at Bedtime Cholecalciferol (Vitamin D3 oral tablet)?1?tab(s)?10?Microgram?By Mouth?Daily Docusate?100?Milligram?By Mouth?2 times a day?Hold for diarrhea Irbesartan (irbesartan 150 mg oral tablet)?2?tab(s)?300?Milligram?By Mouth?Daily Levothyroxine (levothyroxine 0.05 mg oral tablet)?1?tab(s)?50?Microgram?By Mouth?Daily Lidocaine Topical (lidocaine 5% topical film)?See Instructions?1 patch to each upper back/shoulder for 12 hrs every day Lorazepam (LORazepam 0.5 mg oral tablet)?1?tab(s)?0.5?Milligram?By Mouth?2 times a day?as needed?as needed for anxiety Mirtazapine (mirtazapine 15 mg oral tablet)?1?tab(s)?15?Milligram?By Mouth?Daily at bedtime Oxcarbazepine (OXcarbazepine 300 mg oral tablet)?300?Milligram?By Mouth?2 times a day?for 30?Days?See Instructions?300 mg [id number] bedtime ? Results Recent Labs No labs resulted between 06/13/2024 00:00 and 06/14/2024 06:16? Hospital Progress note * Feliberto Holly NP: PERFORM Event Display: Progress Note Hospital Authored Date: [id number] Patient: ??TL STONE ? Age:??83 Years?Sex:??Female?:??1940?? Chief Complaint/Reason for Consult SAH, IPH History of Present Illness Interval History: Yesterday, pt with significant??constipation. MRI Brain completed; pending report.?? Review of Systems Pt reports mild headache most notable in am, constipation improved. Physical Exam Vitals & Measurements Vital Signs?? Temperature: 98.1 DegF (06/18/24 01:00:00) Temperature Route: Oral (06/18/24 01:00:00) Pulse Rate: 82 bpm (06/18/24 08:09:00) Respiratory Rate: 18 br/min (06/18/24 01:00:00) Vented: No (06/17/24 20:12:00) Systolic Blood Pressure: 138 mm Hg (06/18/24 08:09:00) Systolic Blood Pressure: 138 mm Hg (06/18/24 08:09:00) Systolic Blood Pressure: 138 mm Hg (06/18/24 08:09:00) Diastolic Blood Pressure:??87 mm Hg??High (06/18/24 08:09:00) Diastolic Blood Pressure:??87 mm Hg??High (06/18/24 08:09:00) Diastolic Blood Pressure:??87 mm Hg??High (06/18/24 08:09:00) Blood pressure sites: Arm, right (06/18/24 08:00:00) Pulse Pressure: 71 mm Hg (06/18/24 01:00:00) Oxygen Saturation: 99 % (06/18/24 01:00:00) Mode of Delivery (Oxygen): Room air (06/18/24 01:00:00) Early Warning Score: 0 (06/18/24 08:10:38) Intake?? Output?? Oral Fluids: 480 mL (13:00) Urine Voided: 1 mL (13:00) ?? Stool Frequency: 1 (16:00) Gen: No acute distress, awake, alert?? HEENT: normocephalic, atraumatic. No ptosis. Nares patent. Oropharynx without lesions. Psych: not depressed or anxious?? CV:?? rhythm??regular, 3+radial pulses Pulm: normal I:E, no dyspnea GI/: non-distended, soft, no guarding Derm: no rashes or edema Neuro: Mental status: Oriented x 4 Speech is fluent, appropriate with no slurring or aphasia. Repeats 'No ifs, ands, or buts . Names well. Follows simple and complex commands.?? Cranial Nerves: PERRL 5 mm brisk , EOMI without nystagmus, Visual louis full. Face appears symmetric with no drooping or weakness. Facial sensation intact. Hearing intact to finger rub bilaterally.??Tongue and uvula midline. Palate symmetric movements. Shoulder shrug symmetric bilaterally. Motor: strength??5/5 BUE/BLE. No pronator drift. Normal bulk and tone. No abnormal movements.?? Coordination: No ataxia or dysmetria noted with finger to nose.?? Sensation: Intact light touch sensation bilaterally. No extinction to double simultaneous stimulation. Gait deferred. Assessment/Plan 83 y/o RH female with history of Ash-Ash and L temporal ICH in 2000, subsequent sz d/o on Trileptal, h/o of L. sided breast cancer s/p lumpectomy in 2022 on Anastrazole,??L. knee replacement, and recent R. knee replacement in November 2023 presenting to [facility] with Worst headache of life,??who was found to have L temporal IPH and SAH.??CTA of head/neck with multifocal intracranial stenosis, no aneurysm, started on nicardipine gtt transferred to [facility] for further management.??Patientwent for diagnostic angiogram which did not reveal aneurysm.??She had episode of speech arrest on HD2 which was suspected to be seizure, increased??Trileptal to 450mg BID ( from 300 qam and 450 qhs).??She has remained back to baseline since transfer our of [facility], with BP controlled on po meds. Discussed with NEV, no role for intervention. MRI Brain with and without FEI prelim read is consistent with CT scans, no underlyin g mass identified on prelim read.? DDX: L frontotemporal??SAH, L. Temporal IPH, tiny SDH.??ICH score 1.??PBD 4. Etiology: ash ash vshtn?? Seizure 06/15/2024 consisting of speech arrest,??likely provoked breakthrough seizure in setting of SAH/IPH.? Recommendations: - follow up on final read of MRI - continues??to have risk of ischemic brain injury due to Ash Ash, however, due to recurrent IPH,not a candidate for Antiplt??therapy for prevention.?? - hold all antiplts - follow Trileptal level from 06/16. - continue increased dose of trilptal 450mg BID ( from 300 qam and 450 qhs) - outpt neuro??follow up, for stroke and epilepsy??communicated - ok to d/c from neuro perspective - we will sign off at this time.? Thank you for the consult.?? Case discussed with Dr. Alcaraz??Feliade Recs given to Dr. Johnson Maldonado-??David ? Problem List/Past Medical History Ongoing No qualifying data Hospital Medications Medications (25) Active SCHEDULED: (12) Amlodipine 5 mg Tablet (amLODIPine 10 mg oral tablet) ??5 mg, By Mouth, Daily in AM Atenolol 25 mg Tablet (atenolol 50 mg oral tablet) ??25 mg, By Mouth, Daily in AM Atorvastatin 80 mg Tablet (atorvastatin 80 mg oral tablet) ??80 mg, By Mouth, Daily at bedtime Docusate Sodium 100 mg Capsule (Colace sodium 100 mg oral capsule) ??100 mg 1 capsule, By Mouth, 2 times a day Hydrocortisone 25 mg Hemmorhoidal Supp (HydroCORTisone ??Supp) ??25 mg 1 supp, Rectally, 3 times a day Insulin Lispro 100 units/mL Inj (Humalog Sliding Scale) ??2-10 units, Subcutaneous Injection, 3 times a day with meals and bedtime Levothyroxine 25 mcg Tablet (levothyroxine 0.025 mg oral tablet) ??50 mcg, By Mouth, Daily Losartan 25 mg Tablet (losartan 25 mg oral tablet) ??25 mg, By Mouth, Daily Mirtazapine 15 mg Tablet (mirtazapine 15 mg oral tablet) ??15 mg, By Mouth, Daily at bedtime Oxcarbazepine 150 mg Tablet (OXcarbazepine 150 mg oral tablet) ??450 mg, By Mouth, 2 times a day Senna Tablet (Senna 8.6 mg oral tablet) ??17.2 mg 2 tablet, By Mouth, Daily Vitamin D 400 IU Tablet (Vitamin D3 1000 intl units oral tablet) ??400 International_Units, By Mouth, Daily CONTINUOUS: (0) PRN: (13) Acetaminophen 325 mg Tablet (Acetaminophen Tablet) ??650 mg, By Mouth, Every 6 hours Bisacodyl 10 mg Suppository (Bisacodyl Supp) ??10 mg 1 supp, Rectally, 2 times a day Dextrose Inj Syringe (Dextrose 50% Inj Syringe (25Gm)) ??12.5 Gm, IV Push Slowly, Every 20 minutes Dextrose Inj Syringe (Dextrose 50% Inj Syringe (25Gm)) ??25 Gm, IV Push Slowly, Every 15 minutes Glucagon 1 mg Inj (Glucagon Inj) ??1 mg, Intramuscular, Once Glucose 40% Gel (15 Gm) (Glucose Gel) ??15 Gm, By Mouth, Every 20 minutes Glucose 40% Gel (15 Gm) (Glucose Gel) ??30 Gm, By Mouth, Every 20 minutes Lorazepam 0.5 mg Tablet (LORazepam 0.5 mg oral tablet) ??0.5 mg, By Mouth, 2 times a day Magnesium Hydroxide 8% Susp UD (Milk of Magnesia Liquid) ??30 mL, By Mouth, 2 times a day Ondansetron 2mg/mL Inj (2mL Vial) (Zofran Inj) ??4 mg, IV Push, Every 6 hours OxyCODONE 5 mg IR Tablet (oxyCODONE 5 mg oral tablet) ??5 mg, By Mouth, Every 6 hours Polyethylene Glycol 17 Gm Powder (MiraLax Powder) ??17 Gm 1 pack/packet, By Mouth, Daily Senna Tablet (Senna 8.6 mg oral tablet) ??8.6 mg 1 tablet, By Mouth, Daily Allergies Dilantin aspirin sertraline Recent Lab Results Abs. NRBC: 0 k/mm3 (06/18/24 06:31:00) Anion Gap: 9 (06/18/24 06:31:00) BUN: 14 mg/dL (06/18/24 06:31:00) Chloride: 102 mmol/L (06/18/24 06:31:00) Estimated GFR Creatinine: 73 ML/MIN/1.73 M2 (06/18/24 06:31:00) Hct:??30.7 %??Low (06/18/24 06:31:00) Hgb:??10.1 Gm/dL??Low (06/18/24 06:31:00) MCH: 30.9 pg (06/18/24 06:31:00) MCHC:??32.9 Gm/dL??Low (06/18/24 06:31:00) MCV: 93.9 femtoliters (06/18/24 06:31:00) MPV: 9.9 femtoliters (06/18/24 06:31:00) Nucleated RBC (Automated): 0 #/100 WBC'S (06/18/24 06:31:00) Platelet Count: 246 k/mm3 (06/18/24 06:31:00) Potassium: 4.5 mmol/L (06/18/24 06:31:00) RBC:??3.27 m/mm3??Low (06/18/24 06:31:00) RDW-SD: 44 femtoliters (06/18/24 06:31:00) Sodium: 138 mmol/L (06/18/24 06:31:00) WBC: 9.4 k/mm3 (06/18/24 06:31:00) * Izabela Finnegan MD: PERFORM Event Display: Progress Note Hospital Authored Date: Attending Attestation:??I have discussed the case and its management with the advanced practitionerand agree with the findings and plan as documented in the advanced practitioner???s note. ?? Brain MRI with no??clear underlying mass, however, recommend to repeat brain MRI with and w/o contrast within??8 weeks??after??resolution of intracranial bleeding to completely rule our??underlying brain lesions. ?? Izabela Dupont M.D Attending-Vascular Neurology Department of Neurosciences * Christina Jalloh RN: PERFORM, SIGN, VERIFY Event Display: Progress Note Hospital Authored Date: Patient: TL STONE Age: 83 years Sex: Female : 1940 Associated Diagnoses: None Author: Christina Jalloh RN Findings Evaluation Pt is alert to self place and time. Pt c/o headache, medicated with tylenol with good effect. Vss and afebrile. See cis for a complete assessment. Report call to [facility] Nurse and recieved patinet. Pt going to MRI then to [facility]. . * Morenita VEGA, Erick: PERFORM Event Display: Progress Note Hospital Authored Date: Patient: ??TL STONE ? Age:??83 Years?Sex:??Female?:??1940?? Subjective ?? Ms. Stone is our sweet and pleasant 83 y.o. 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 breast cancer s/p left-side??lumpectomy??(02/2023 at [facility]) on anastrozole,??generalized anxiety disorder / depression, h.o. left knee meniscal tear s/p surgical repair (02/2009, Dr. Bailey) / right knee meniscal tear s/p surgical repair (09/2014, Dr. Bailey), admitted on 06/14/2024 to the MICU as a direct transfer from the ER at [facility]??with a left fronto-parieto- temporal SAH / left temporal horn??intraparenchymal??hemorrhage.?? s/p neuroangiography c.w. 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 Triaged out of MICU to[facility] on 06/15/2024 Currently * Seen with Neurology at bedside this morning She is asking to be discharge home, but Neurology would like to do a brain MRI with / without contrast and observe her till tomorrow * Also, she has had very labile / soft BP's with orthostatism Halving all her antihypertensive doses * Has had cough with specks of blood in her phlegm * Afebrile * WBC count = 8.6 K * sCreat =??0.78 * Triaging out of [facility] to [facility] today ? Review of Systems General symptoms: (-)??fever?? Cardiopulmonary:??(+) cough with specks of blood in the sputum / (-) chest pain GI:?? (-)??abdominal pain /??(-) diarrhea :??(-) dysuria Neuro: (-) headache?? Objective Vital Signs?? Temperature: 98.1 DegF (06/17/24 07:00:00) Temperature Route: Oral (06/17/24 07:00:00) Pulse Rate: 82 bpm (06/17/24 09:00:00) Pulse Rate, Lyin bpm (06/17/24 10:04:00) Systolic Blood Pressure, Lyin mm Hg (06/17/24 10:04:00) Diastolic Blood Pressure, Lyin mm Hg (06/17/24 10:04:00) Systolic Blood Pressure, Sittin mm Hg (06/17/24 10:04:00) Diastolic Blood Pressure, Sittin mm Hg (06/17/24 10:04:00) Systolic Blood Pressure, Standin mm Hg (06/17/24 10:04:00) Diastolic Blood Pressure, Standin mm Hg (06/17/24 10:04:00) Heart Rate Monitored: 70 bpm (06/17/24 07:00:11) Respiratory Rate: 17 br/min (06/17/24 07:00:11) Vented: No (06/17/24 07:00:00) Systolic Blood Pressure: 96 mm Hg (06/17/24 09:32:00) Diastolic Blood Pressure:??44 mm Hg??Low (06/17/24 09:32:00) Blood pressure sites: Arm, left (06/17/24 09:00:00) Pulse Pressure: 81 mm Hg (06/17/24 06:00:00) Oxygen Saturation: 94 % (06/17/24 07:00:11) Mode of Delivery (Oxygen): Room air (06/17/24 04:00:00) Early Warning Score: 3 (06/17/24 09:32:16) ? Physical Exam Afebrile, Tmax = 98.1 F, HR = 82', BP = 115 / 59 Normocephalic, NEL, no thrush, on room air Clear chest to auscultation, few scattered rhonchi / secretions S1 / S2 no murmur [place] abdomen, no rebound LEs (-) for edema.?? Neurologically grossly non-focal.?? _ Inpatient Medications Medications (23) Active SCHEDULED: (10) Amlodipine 5 mg Tablet (amLODIPine 10 mg oral tablet) ??5 mg, By Mouth, Daily in AM Atenolol 25 mg Tablet (atenolol 50 mg oral tablet) ??25 mg, By Mouth, Daily in AM Atorvastatin 80 mg Tablet (atorvastatin 80 mg oral tablet) ??80 mg, By Mouth, Daily at bedtime Docusate Sodium 100 mg Capsule (Colace sodium 100 mg oral capsule) ??100 mg 1 capsule, By Mouth, 2 times a day Insulin Lispro 100 units/mL Inj (Humalog Sliding Scale) ??2-10 units, Subcutaneous Injection, Every6 hours Levothyroxine 25 mcg Tablet (levothyroxine 0.025 mg oral tablet) ??50 mcg, By Mouth, Daily Losartan 25 mg Tablet (losartan 25 mg oral tablet) ??25 mg, By Mouth, Daily Mirtazapine 15 mg Tablet (mirtazapine 15 mg oral tablet) ??15 mg, By Mouth, Daily at bedtime Oxcarbazepine 150 mg Tablet (OXcarbazepine 150 mg oral tablet) ??450 mg, By Mouth, 2 times a day Vitamin D 400 IU Tablet (Vitamin D3 1000 intl units oral tablet) ??400 International_Units, By Mouth, Daily CONTINUOUS: (0) PRN: (13) Acetaminophen 325 mg Tablet (Acetaminophen Tablet) ??650 mg, By Mouth, Every 6 hours Bisacodyl 10 mg Suppository (Bisacodyl Supp) ??10 mg 1 supp, Rectally, 2 times a day Dextrose Inj Syringe (Dextrose 50% Inj Syringe (25Gm)) ??12.5 Gm, IV Push Slowly, Every 20 minutes Dextrose Inj Syringe (Dextrose 50% Inj Syringe (25Gm)) ??25 Gm, IV Push Slowly, Every 15 minutes Glucagon 1 mg Inj (Glucagon Inj) ??1 mg, Intramuscular, Once Glucose 40% Gel (15 Gm) (Glucose Gel) ??15 Gm, By Mouth, Every 20 minutes Glucose 40% Gel (15 Gm) (Glucose Gel) ??30 Gm, By Mouth, Every 20 minutes Lorazepam 0.5 mg Tablet (LORazepam 0.5 mg oral tablet) ??0.5 mg, By Mouth, 2 times a day Magnesium Hydroxide 8% Susp UD (Milk of Magnesia Liquid) ??30 mL, By Mouth, 2 times a day Ondansetron 2mg/mL Inj (2mL Vial) (Zofran Inj) ??4 mg, IV Push, Every 6 hours OxyCODONE 5 mg IR Tablet (oxyCODONE 5 mg oral tablet) ??5 mg, By Mouth, Every 6 hours Polyethylene Glycol 17 Gm Powder (MiraLax Powder) ??17 Gm 1 pack/packet, By Mouth, Daily Senna Tablet (Senna 8.6 mg oral tablet) ??8.6 mg 1 tablet, By Mouth, Daily ? Results Test Name Test Result Date/Time WBC 8.6 k/mm3 06/17/2024 07:36 EST Hgb 9.7 Gm/dL 06/17/2024 07:36 EST Hct 30.0 % 06/17/2024 07:36 EST Platelet Count 220 k/mm3 06/17/2024 07:36 EST Sodium 139 mmol/L 06/17/2024 07:36 EST Potassium 4.5 mmol/L 06/17/2024 07:36 EST Chloride 106 mmol/L 06/17/2024 07:36 EST Bicarbonate Level 24 mmol/L 06/17/2024 07:36 EST Anion Gap 9 06/17/2024 07:36 EST Glucose Level 98 mg/dL 06/17/2024 07:36 EST BUN 16 mg/dL 06/17/2024 07:36 EST Creatinine-Blood 0.78 mg/dL 06/17/2024 07:36 EST Estimated GFR Creatinine 76 ML/MIN/1.73 M2 06/17/2024 07:36 EST Calcium 9.2 mg/dL 06/17/2024 07:36 EST ?? Assessment/Plan ? Left-side [id number] subarachnoid hemorrhage (I60.9):??. 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 Seizure disorder (G40.909):? Neurology input much appreciated Despite all of the above, she looks great, with no reina deficit and asking to go home...?? Plan:?? * MRI with / without contrast as requested by Neurology to r.o. underlying mass * Awaiting final note / report from neuroangiography * On oxcarbazepine * Triaging out of [facility] to [facility] today ?? Cough with hemoptysis (R04.2):? Very scant, but causing a lot of anxiety CXR ordered / repeat COVID-19? Hypertension (I10):??. Hyperlipidemia (E78.5):? On atenolol + amlodipine + losartan Soft BP's, halving doses ?? Hypothyroidism (E03.9):? On levothyroxine ?? Breast cancer (C50.919):? On anastrozole ?? Depression with anxiety (F41.8):? On mirtazapine + PRN lorazepam ?? VTE Prophylaxis:? On pneumoboots Heparinoids contraindicated due to SAH / IPH / hemoptysis ? Ongoing Medical Necessity:? Left uvhyvc-oxvtouk-bkayybsi SAH / left temporal horn??intraparenchymal??hemorrhage.? Discharge Planning:? Triaging out of [facility] to [facility] today ? Consult note * Kaylyn Tavera NP: PERFORM Event Display: Consultation Note Authored Date: [id number] Patient: ??TL STONE ? Age:??83 Years?Sex:??Female?:??1940?? Chief Complaint/Reason for Consult cc; SAH History of Present Illness Ms. Stone, 83 y/o RH female with history of Ash-Ash and ICH in 2000, subsequent sz d/o on Trileptal, h/o of L. sided breast cancer s/p lumpectomy in 2022 on Anastrazole, history of L. knee replacement, and recent R. knee replacement in November 2023, recent dx??of Hyponatremia?? at [facility] presented with decreased appetite, profound weakness and gait instability, now admitted as a transfer from [facility] for SAH. ?? Patient reports that she was sleeping, says she was dreaming of her son, suddenly she say she felt like her son was present and opened her eyes, she realized she was just dreaming but felt a terribleHA, sudden onset, 5/10 to the back of head, neck and into the shoulders, she denied any trauma and no recent illness. She awoke at about??0130. She was taken to [facility], as a stroke alert, there was?? R.FD noted. Head CT noted a L.Hemispheric SAH. ?? [facility], pt was [facility] into the MICU. She was given MS and Zofran at OSH. SBPs??reported > 140.?? EKG: NSR.? As per notes; Upon arrival to unit, patient was evaluated immediately, her NIH score was a 1 during which appears to be chronic.?? She did however have a scheduled photophobia,?? She states that herhealthcare proxy is her granddaughter.?? Patient is also to be full code.?? Her systolic was in 170s which nicardipine drip was started ?? CTH from OSH?? reported as:??CT head with 1.3 cm intraparenchymal hematoma?in the medial lefttemporal lobe, subarachnoid hemorrhage in the left side of basilar cistern, left sylvian fissure left cerebral sulcal, along the left cerebral hemisphere. ?? Repeat Head CT and CTA of h/n obtained at [facility]; noted L.SAH and multifocal intracranial stenosis,no evidence of aneurysm. This am after further??discussion with patient, HCP, and grand-daughter a hospitalist in [place] and Dr. Wood of [facility] [place], patient agreed for diagnostic cerebral angio, found evidence of?? Ash-Ash, no??aneurysm. Review of Systems GEN: no fevers, no chills HEENT: mild headache to the back of the head, says nothing like it was CV: no cp, no palpitations RESP: no sob, no wheezing GI: no n/v/d : no dysuria/frequency/urgency MUSK: no joint pain, no muscle aches/pains DERM: no skin rashes, no bruising PSYCH: no depression, no anxiety NEURO: no vision changes, no speech changes, no change in swallow, no weakness, no sensory changes,no imbalance, no dizziness. Physical Exam Vitals & Measurements T:??98.6?F?? HR:??81??(Peripheral)?? RR:??19?? BP:??140/72?? SpO2:??93%?? HT:??160??cm?? WT:??72.6??kg?? BMI:??28.36? GENERAL APPERANCE:?? stated age?? HEENT: nc/at?? NECK: supple LUNGS: ??Normal I:E HEART: RRR ABD: soft, ND, NT. EXT: No clubbing, no edema SKIN: no obvious rashes NEURO: awake and alert oriented to her name, age, place, mo, yr names well?? follows commands well Cranial Nerves:?? Pupils: perrl Visual: vff Extra ocular movements: Intact Facial sensation: smile is symmetric, slight droop at the corner of the right lip Hearing: intact bilaterally to voice?? Speech: clear, fluent, appropriate?? Tongue: Protrudes Midline Gag: soft palate raises equally Shoulder shru/5 Neck musculature: 5/5 Motor Exam: Strength: 5/5 in the b/l UEs??and 5/5 in the b/l LEs Sensory: sensation to light touch intact and equal bilaterally to face, bilateral upper extremities, and bilateral lower extremities, no extinction to DSS?? Coordination: FTN intact, Carter symmetric, no pronator drift. ? (06/14/2024 06:[address] Head/Brain W/O Contrast) ?? IMPRESSION: ?? Left frontoparietotemporal subarachnoid hemorrhage, left temporal horn intraparenchymal hemorrhage,left frontal extra-axial, tiny likely subdural hemorrhages measuring up to 3 mm. Hemorrhage extendsinto the basal cisterns. No midline shift, however there is left hemispheric effacement of the sulci. ?? I have personally reviewed the images and I agree with this report. WSN: [id number] ?? [1] Assessment/Plan Discharge Planning:? 83 y/o RH female with history of Ash-Ash and ICH in 2000, subsequent sz d/o on Trileptal, h/o of L. sided breast cancer s/p lumpectomy in 2022 on Anastrazole, history of L. knee replacement, and recent R. knee replacement in November 2023, recent dx??of Hyponatremia?? at [facility] presented with decreased appetite, profound weakness and gait instability, now admitted as a transfer from [facility] for SAH, SBPs reported > 140 at OSH, 179 on arrival to [facility], repeat Head CT with Left frontoparietotemporal subarachnoid hemorrhage, left temporal horn intraparenchymal hemorrhage, left frontal extra-axial, tiny likely subdural hemorrhages measuring up to 3 mm. Hemorrhage extends into the basal cisterns. No midline shift, however there is left hemispheric effacement of the sulci. CTA of head/neck with multifocal intracranial stenosis, no aneurysm, started on nicardipine gtt?? and SAH protocol, now pt sp cerebral diasostic angio this am; found evidence of?? Ash-Ash, no??aneurysm. ?? dx L. F/T SAH, L. Temporal IPH, tiny SDH,?? PBD 0. r/t atherosclerosis and hx of Ash-Ash ?? Plan -SBP < 150 -no anti-platelets -ok to stop SAH: nimodipine -c/w monitoring in the MICU; q1h neuro checks -stat Head CT for acute change in neuro status -c/w home Trileptal 300mg/450mg -sz precautions -dvt prophylaxis w/ compression boots ?? dw Dr. Meza Will follow Please call for any questions. Problem List/Past Medical History Ongoing No qualifying data Procedure/Surgical History No qualifying data available. Home Medications Amlodipine: 10 mg, By Mouth, Daily Anastrozole: 1 mg = 1 tablet, By Mouth, Daily Atenolol: 50 mg, By Mouth, Daily Atorvastatin: 80 mg = 2 tablet, By Mouth, Daily at bedtime Cholecalciferol: 10 mcg = 1 tablet, By Mouth, Daily Docusate: 100 mg, By Mouth, 2 times a day, Hold for diarrhea Irbesartan: 300 mg = 2 tablet, By Mouth, Daily Levothyroxine: 50 mcg = 1 tablet, By Mouth, Daily Lidocaine Topical: See Instructions, 1 patch to each upper back/shoulder for 12 hrs every day Lorazepam: 0.5 mg = 1 tablet, By Mouth, 2 times a day, PRN (as needed for anxiety) Mirtazapine: 15 mg = 1 tablet, By Mouth, Daily at bedtime Oxcarbazepine: See Instructions, 300 mg [id number] bedtime Allergies Dilantin aspirin sertraline Social History Alcohol Use: Current. Frequency: 1-2 times per year. Type: Wine. Employment/School Status: Retired. Exercise Self assessment: Poor condition. Home/Environment Living situation: Home/Independent. Nutrition/Health Diet: Regular. Sexual Sexually involved in last 6 months: No. Substance Abuse Use: Never. Tobacco Former smoker, Other: quit >30yrs ago. Family History No family history recorded. Lab Results Test Name Test Result Date/Time WBC 14.0 k/mm3 06/14/2024 05:54 EST RBC 3.64 m/mm3 06/14/2024 05:54 EST Hgb 11.3 Gm/dL 06/14/2024 05:54 EST MCH 31.0 pg 06/14/2024 05:54 EST MCHC 32.4 Gm/dL 06/14/2024 05:54 EST Platelet Count 246 k/mm3 06/14/2024 05:54 EST Abs. Neut 12.5 k/mm3 06/14/2024 05:54 EST Neut % 89.3 % 06/14/2024 05:54 EST INR 1.0 06/14/2024 05:54 EST Glucose Level 124 mg/dL 06/14/2024 05:54 EST Glucose, POC 127 mg/dL 06/14/2024 09:09 EST Glucose, POC 140 mg/dL 06/14/2024 06:14 EST Alkaline Phosphatase 115 units/L 06/14/2024 05:54 EST AST (SGOT) 17 units/L 06/14/2024 05:54 EST ALT (SGPT) 12 units/L 06/14/2024 05:54 EST Lactate 2.5 mmol/L 06/14/2024 05:54 EST [1]??CT Head/Brain W/O Contrast; Valente Servin MD 06/14/2024 06:41 EST * Rachel Meza MD: PERFORM Event Display: Consultation Note Authored Date: [id number] ? NEUROCRITICAL CARE ATTENDING ATTESTATION: I have seen and examined this patient. I have reviewed the care provided to the patient by??OPHTHALMIC ASST Zlobicka immediately after the visit. I have reviewed the patient???s medical history, physical exam findings, and the assessment and plan as documented in above mentioned note. I am in agreement with theplan of care as documented in the note with the following highlights and additions. ? 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 Patient has been in her USOH and awoke from a dream around 1:30am and shortly after awakening experienced a thunderclap severe MCKEON reaching max severity right away. She had no associatedweakness, numbness, but did have difficulty??ambulating. She called her son who took her to the OSH. GCS15 there, NIHSS 0, SBP 180s.??CTH images from there reviewed on [facility] showing a??1cc L temporal IPH with associated SAH extending into the sylvian fissure, no IVH. 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 ?? Patient without new??complaints this afternoon, states headache has improved. ??Denies??weakness, numbness, cp, sob, nausea/vomiting, abdominal pain. all other systems reviewed negative. ?? Exam today shows: GEN? AAOX3, NAD, follows all commands and cooperates with exam; no aphasia, no dysarthria CN - PERRL, VFFTC, EOMI, no facial asymmetry, tongue protrudes midline MOTOR: no drift. BUE - 5/5 throughout, BLE - 5/5 throughout SENSATION: intact and symmetric to LT in BUE and BLE CEREBELLUM: no nystagmus CV/PULM - RRR, no murmurs; lungs CTAB ? 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 ? Rachel Meza MD Neuro-critical Care Attending ?? Patient Care team information Care Team Personnel Name: Flynn VEGA, Kelvin Johnson Position: Reference Physician Member Role: PCP Address: [address] [place] [address] [place] [address]- Telecom: Name: Ana Younger RN Position: [facility] RN Member Role: Primary Care Nurse Name: Osiris Hancock RN Position: [facility] RN Member Role: Primary Care Nurse Name: Ann Gary RN Position: [facility] RN Member Role: Primary Care Nurse Name: Deven Brown RN Position: [facility] RN Member Role: Primary Care Nurse Name: Chani Holguin RN Position: [facility] AMB Nurse Member Role: Primary Care Nurse Name: Becky Wills RN Position: [facility] RN Member Role: Primary Care Nurse Name: Evelia Estrella RN Position: [facility] RN Member Role: Primary Care Nurse Name: Toño De León RN Position: [facility] RN Member Role: Primary Care Nurse Name: Kaur Lewis RN Position: [facility] RN Member Role: Primary Care Nurse Name: Angela Hernandez RN Position: [facility] RN Member Role: Primary Care Nurse Name: Ronnie Nation RN Position: [facility] RN Member Role: Primary Care Nurse Name: Raisa Jean Baptiste RN Position: [facility] RN Member Role: Primary Care Nurse Name: Bushra Spears LPN Position: S RN Member Role: Primary Care Nurse Name: Philly Parsons RN Position: [facility] Onco RN Member Role: Primary Care Nurse Care Team Related Persons Name: ZOHAIB URBANO Name: YadyTRISTA FRANCISCO Insurance Providers Guarantor name: TL [facility] Plan Information #: 1 Payer: MEDICARE A INPT 25 Member Number: [id number] Policy Number: NA Group Number: NA Health Plan Information #: 2 Payer: MEDICARE PART B OUTPT Member Number: [id number] Policy Number: NA Group Number: NA Health Plan Information #: 3 Payer: MEDEX Member Number: [id number] Policy Number: NA Group Number: [id number] Health Plan Information #: 4 Payer: MEDEX Member Number: [id number] Policy Number: NA Group Number: NA
== END 2024-06-25 14:01 | disposition home or self-care (01) ==
PROVIDERS: PCP Internal Medicine
DX: I60.9 Nontraumatic subarachnoid hemorrhage, unspecified (principal); G40.909 Epilepsy, unspecified, not intractable, without status epilepticus; C50.912 Malignant neoplasm of unspecified site of left female breast; I67.5 Moyamoya disease; I10 Essential (primary) hypertension; E03.9 Hypothyroidism, unspecified; M50.30 Other cervical disc degeneration, unspecified cervical region; Z17.0 Estrogen receptor positive status [ER+]; G47.00 Insomnia, unspecified; F41.9 Anxiety disorder, unspecified; F32.9 Major depressive disorder, single episode, unspecified

== ENCOUNTER → 2024-06-25 13:00 | Outpatient (BNVA) | payer MEDICARE, SELFPAY | PROVIDERS: PCP Internal Medicine | DX: I60.9 Nontraumatic subarachnoid hemorrhage, unspecified (principal); I67.5 Moyamoya disease; I10 Essential (primary) hypertension; E03.9 Hypothyroidism, unspecified; G40.909 Epilepsy, unspecified, not intractable, without status epilepticus; M50.30 Other cervical disc degeneration, unspecified cervical region; C50.912 Malignant neoplasm of unspecified site of left female breast; Z17.0 Estrogen receptor positive status [ER+]; G47.00 Insomnia, unspecified; F41.9 Anxiety disorder, unspecified; F32.9 Major depressive disorder, single episode, unspecified | CPT/HCPCS: 96127; 99212 ==

== ENCOUNTER 2024-06-27 06:14 | Outpatient (REF) | payer MEDICARE, SELFPAY ==
[2024-06-27 09:54] LABS: MANUAL DIFF FLAG NO
[2024-06-27 10:02] LABS: Appearance Urine Clear; Color Urine Yellow; Glucose Urine UA Negative (Negative); Leukocyte Esterase Urine Negative (Negative); Nitrite Urine Negative (Negative); PH 5.5 (5.0-9.0); Urine Blood Negative (Negative); Urine Ketones Negative (Negative); Urine Protein Negative (Neg-Trace)
[2024-06-27 10:22] LABS: Basophils Percent Auto 0.4 % (0-2); Eosinophils Absolute Auto 0.2 X10*3/uL (0.0-0.4); Eosinophils Percent Auto 2.4 % (0-4); Hematocrit 32.4 % (37.0-47.0); Hemoglobin 10.6 g/dl (12.0-16.0); Imm Gran Abs Auto 0.04 X10*3/uL (0.00-0.03); Imm Gran Pct Auto 0.5 % (0.0-0.4); Lymphocytes Percent Auto 23.9 % (20-40); Mean Corpuscular HGB Conc 32.7 g/dl (31.0-35.0); Mean Corpuscular Hemoglobin 30.8 pg (27.0-33.0); Mean Corpuscular Volume 94.2 fL (80.0-98.0); Mean Platelet Volume 9.7 fL (9.4-12.3); Monocytes Absolute Auto 0.6 X10*3/uL (0.1-1.2); Monocytes Percent Auto 6.9 % (2-11); Neutrophils Absolute Auto 5.5 x10*3/uL (2.0-8.3); Neutrophils Percent Auto 65.9 % (45-73); Platelet Count 360 X10*3/uL (160-400); Red Blood Count 3.44 X10*6/uL (4.20-5.50); Red Cell Distribution Width 13.1 % (11.0-16.0); White Blood Count 8.4 X10*3/uL (4.8-10.8)
[2024-06-27 10:40] LABS: Estimated Average Glucose 114 mg/dL; Hemoglobin A1C 104.8234 umol/L; Hemoglobin A1c % 5.6 % (<6.0); Total Hemoglobin (HGBA1C) 2749.8971 umol/L
[2024-06-27 10:56] LABS: Alanine Aminotransferase 11 U/L (0-31); Alkaline Phosphatase 82 U/L (39-117); Anion Gap 10 (12-20); Aspartate Amino Transferase 20 U/L (5-31); Bilirubin Total 0.3 mg/dL (0.0-1.0); Blood Urea Nitrogen 12 mg/dL (9-16); Calcium 9.1 mg/dL (8.4-10.2); Carbon Dioxide 26 mmol/L (22-29); Chloride 107 mmol/L (96-108); Estimated Glomerular Filt Rate > 60; Glucose Fasting 99 mg/dL (60-99); Magnesium 1.8 mg/dL (1.6-2.6); Potassium 3.8 mmol/L (3.3-5.1); Sodium 139 mmol/L (135-145); Total Protein 7.2 g/dL (6.5-8.0)
[2024-06-27 11:19] LABS: Free T4 (Free Thyroxine) 0.94 ng/dL (0.71-1.85); TSH reflex Free T4 1.42 uIU/mL (0.32-4.0); Vitamin D 25-OH Total 67.3 ng/mL (>30)
[2024-06-27 11:22] LABS: Vitamin B12 250 pg/mL (200-900)
== END 2024-06-27 06:15 | disposition home or self-care (01) ==
LOC: HO.HMGCLDS 06:14
PROVIDERS: PCP Internal Medicine
DX: I10 Essential (primary) hypertension (principal); D64.9 Anemia, unspecified; R73.01 Impaired fasting glucose; R79.89 Other specified abnormal findings of blood chemistry; E03.9 Hypothyroidism, unspecified; E66.3 Overweight; G47.00 Insomnia, unspecified; G40.909 Epilepsy, unspecified, not intractable, without status epilepticus; F41.9 Anxiety disorder, unspecified; R25.2 Cramp and spasm
CPT/HCPCS: 36415; 80053; 81003; 82306; 82607; 82746; 83036; 83735; 84439; 84443; 85025

== ENCOUNTER 2024-07-26 12:53 | Outpatient (AMB) | payer MEDICARE, SELFPAY ==
--- NOTE | 2024-07-26 12:55 | MHC.PC.OV ---
Vital Signs 07/26/24 12:56 Height 5 ft 3 in Weight 155 lb 4 oz BMI 27.5 BP 148/70 H Blood Pressure Location Lt brachial Position Sitting Pulse 68 Pulse Source Pulse Oximeter Temp 96.9 F Temp Source Temporal Artery Scan Pulse Oximetry (%) 96 Oxygen Delivery Method Room Air Intake Visit Reasons: 1month f/u Tax Map Technician Required: No Accompanied by: Daughter Allergies phenytoin [Dilantin] Allergy (Severe, Verified 07/28/24 18:18) Hives sertraline [SERTRALINE] Allergy (Severe, Verified 07/28/24 18:18) DROPPED SODIUM LEVEL, BP increase Sodium drop trazodone Allergy (Severe, Verified 07/28/24 18:18) respiratory depression aspirin [ASPIRIN] Allergy (Intermediate, Verified 07/28/24 18:18) RISK OF BLEDING NSAIDS (Non-Steroidal Anti-Inflamma Allergy (Unknown, Verified 07/28/24 18:18) risk of bleeding Medication List - Last Reconciled 07/28/24 by ITZ De La O acetaminophen 650 mg (2 x 325 mg) PO Q6H PRN 30 days amlodipine 10 mg See Protocol PO DAILY 90 days atenolol 50 mg PO DAILY atorvastatin 80 mg PO BEDTIME clonidine HCl 0.1 mg PO BEDTIME 30 days docusate sodium 100 mg PO DAILY PRN 30 days irbesartan 300 mg PO DAILY levothyroxine 50 mcg PO DAILY@0600 lorazepam 0.5 mg PO BEDTIME lorazepam 0.5 mg PO BID PRN 30 days mirtazapine 15 mg PO BEDTIME 90 days oxcarbazepine 450 mg PO BEDTIME oxcarbazepine 300 mg PO DAILY@0900 oxycodone-acetaminophen 5-325 mg (Percocet) 1 tab PO Q4-6H PRN polyethylene glycol 3350 (Miralax) 17 grams PO DAILY PRN walker Folding front wheeled walker Tobacco use date assessed: 06/25/24 Fall risk assessment: No Falls in past year Last assessed Fall Risk: 07/26/24 Dental Screening Dental Screen Date: 06/25/24 HPI 1month f/u HPI Details Patient is a 83-year-old female presenting for follow-up for uncontrolled blood pressure. Accompanied by daughter Blood pressure is elevated in office today Patient daughter reports that the patient did not take the amlodipine as yet The patient's reports that she started given the patient the amlodipine 10 mg at 3 pm because she noticed that her blood pressure would spike in the evenings The patient is currently on Amlodipine 10mg daily, atenolol 50 mg daily, and irbesartan 300mg daily-reinforced taking medications as prescribe and to contact the office if they are any concerns Will add clonidine 0.1mg at bedtime and have the patient return in 2 weeks Reports that she has been having serious headaches on and off, she is sensitive to the light and sounds Unclear, if the patient migraines are driving her blood pressure spikes The patient has an upcoming appt with [facility] neurology mid-july . [facility] Medical History Seasonal allergies Osteopenia Constipation Acquired hypothyroidism Overweight (BMI 25.0-29.9) Cataract Seizures Stroke (~2000) Ash ash disease (~2000) Urinary frequency Allergic rhinitis Degenerative disc disease, cervical Neck pain Depression Anxiety Insomnia Epilepsy Obesity (BMI 30-39.9) Osteoarthritis Benign essential hypertension Pure hypercholesterolemia Rib pain on right side Left shoulder pain Recurrent dry cough Pain of right scapula Right-sided thoracic back pain Surgical History History of left knee replacement H/O breast surgery Hx of colonoscopy History of kidney surgery Status post cervical disc replacement History of knee replacement procedure of right knee Hx of knee surgery Family History Father Chronic mental illness Mother Hypertension Other Mental health problem Social History Household Members: None Housing: House Are you a primary disabilities caregiver to a significant other at home: No Do you presently have visiting nurse or other home services: Yes Alcohol intake: current Alcohol intake frequency: holidays/special occasions only Alcohol type: beer Comment: not documented previous shift Patient Tobacco Use Status: Former Tobacco user Tobacco use type: Cigarette Years Smoked: 10 e-Cigarette/Vaping Use: Never Used Second Hand Smoke Exposure: No Advance Directives Date on File: 05/23/23 service: No Current occupational status: retired Cognitive needs: Yes (Walker) Hearing needs: No Vision needs: No Questionnaire Thrive Questionnaire Date Thrive assessed: 06/25/24 FEI-7 AMB Questionnaire FEI-7 Date FEI - 7 assessed: 06/25/24 Source: Developed by Drs. Michoacano Hanson, Dayanna Car, Javier Spain and colleagues, with an educational zach from [employer]. Review of Systems Const Details: Denies chills, +fatigue (feels like she wants to sleep), Denies fever(s), Denies headache(s) and Denies weakness HEENT Denies change in vision, Denies dizziness, +headache (migraines)(s), Denies hearing loss, Denies nasal congestion, Denies sinus pain, Denies sinus pressure and Denies sore throat Card Denies chest pain, Denies lightheadedness, Denies dyspnea and Denies other (palpitations) Resp Denies cough, Denies dyspnea and Denies wheezing GI Denies abdominal pain, Denies melena, Denies hematochezia, Denies change in bowel habits, Denies dyspepsia and Denies nausea Denies hematuria and Denies dysuria Musc Denies abnormal gait, Denies myalgias, +arthralgias (left knee pain), Denies numbness and Denies tingling Skin/Breast Denies rash, Denies unusual bruising and Denies wounds Neuro Denies abnormal gait, Denies dizziness, Denies headache(s), Denies memory loss, Denies numbness, Denies Sensory deficit (Neuro), Denies tingling and Denies weakness Physical exam (Primary Care) Vital Signs: Last Vital Signs Temp 96.9 F 07/26/24 12:56 Pulse 68 07/26/24 12:56 BP 148/70 H 07/26/24 12:56 Pulse Ox 96 07/26/24 12:56 Oxygen Delivery Method Room Air 07/26/24 12:56 BMI result Body Mass Index 27.5 Tobacco/Smoking Status: Tobacco use Status Tobacco use date assessed 06/25/24 07/26/24 12:58 Patient Tobacco Use Status Former Tobacco user 07/26/24 12:58 Tobacco use type Cigarette 07/26/24 12:58 e-Cigarette/Vaping Use Never Used 07/26/24 12:58 Thrive Assessment: Date of Thrive Assessment Date Thrive assessed 06/25/24 07/26/24 12:58 Const Other: General: no acute distress, well developed, alert and awake Nutritional Appearance: well nourished Orientation/consciousness: patient oriented x3 HENMT Head: Yes normocephalic and Yes atraumatic Eyes Pupils: Equal, round and reactive pupils present and Pupil accommodation reflex normal EOM: EOMs intact bilaterally Neck Neck: Yes normal visual inspection, Yes no lymphadenopathy and Yes trachea midline Thyroid: Thyroid normal Lymphatic: no lymphadenopathy noted Resp Effort & Inspection: normal respiratory effort Auscultation: clear to auscultation bilaterally Cardio Rate: regular rate Rhythm: regular rhythm Heart sounds: S1 normal heart sound present, S2 normal heart sound present, no gallops, no murmurs and no rubs GI Palpation (GI): Abdomen is soft and nontender Auscultation: normal bowel sounds General: Yes no CVA tenderness Back/Spine/Pelvis Back: no CVA tenderness Cervical Spine: Cervical tenderness Lumbar Spine: Lumbar tenderness Skin General: warm and dry. Normal skin color. Normal skin turgor Lesions: no lesions Rashes: no rashes Trauma: no lacerations or abrasions Wounds: no wounds Nails: normal Neuro General: patient oriented x3, gait normal Cranial nerves: Yes Equal, round and reactive pupils present Cognition (Neuro): normal cognition Gait exam (Neuro): Normal gait present Extrem General: Yes normal to inspection, No edema and No calf tenderness Psych Appearance: grossly normal Affect: normal affect Attitude: cooperative Thought process: Normal thought process present Coding Level of Care Code Est Pt Level 3 (18043) Diagnoses Subarachnoid hemorrhage I60.9 Hypertension, unspecified type I10 Hypertension type: unspecified Time Spent (min) 36 Assessment & Plan Assessment & Plan (1) Subarachnoid hemorrhage: Code(s): I60.9 - Nontraumatic subarachnoid hemorrhage, unspecified Category: Medical Plan: The patient has an upcoming appt with neurology in mid-july continue percocet prn q4-6 hours as needed or alternately Tylenol 650mg PRN (2) HTN (hypertension): Code(s): I10 - Essential (primary) hypertension Category: Medical Qualifiers: Hypertension type: unspecified Qualified Code(s): I10 - Essential (primary) hypertension Plan: Blood pressure is elevated in office today Patient daughter reports that the patient did not take the amlodipine as yet The patient's reports that she started given the patient the amlodipine 10 mg at 3 pm because she noticed that her blood pressure would spiked in the evenings The patient is currently on Amlodipine 10mg daily, atenolol 50 mg daily, and irbesartan 300mg daily-reinforced taking medications as prescribe and to contact the office if they are any concerns Will add clonidine 0.1mg at bedtime and have the patient return in 2 weeks Medications: New clonidine HCl 0.1 mg PO BEDTIME 30 days 30 tabs 1RF I10 - Essential (primary) hypertension
[2024-07-26 12:56] VITALS: BP 148/70; PULSE 68; TEMP 36.1; O2SAT 96; BMI 27.5
--- OUTSIDE RECORDS SUMMARY | 2024-07-26 14:57 | XMS_ITS | Continuity of Care Document ---
Author Organization [facility] ter Address [address] [place] [address]- Care Team Providers Care Lieutenant Firefighter Name Role Phone Kelvin Pruett MD [id number] Date[facility]s): [facility]/18/[facility] - 07/18/[address] [facility] [address] [place] [id number]- Attending Physician: Not on Staff, Attending MD Admitting Physician: Not on Staff, Admitting MD Referring Physician: Not on Staff, Referring MD Encounter Type: Pre-Outpt Allergies, Adverse Reactions, Alerts Substance Criticality Severity Reaction Reaction Severity Status aspirin Active sertraline Active Dilantin Active Medications amLODIPine 10 mg oral tablet = 10 mg, By Mouth, Daily, # 30 tablet, 0 Refills, Maintenance, 02/20/15 10:52:13 AM EDT, Tablet, [id number] Start Date: 02/20/15 Status: Ordered Quantity: 30.0 Unit: tablet Repeat number: 1 anastrozole 1 mg oral tablet 1 tablet = 1 mg, By Mouth, Daily, # 90 tablet, 3 Refills, Maintenance, 06/21/24 2:18:00 PM EST, Tablet, [facility], Partial fill upon patient request if the prescription is for a schedule II opioid drug., 160, cm, 06/17/24 10:04:00 EST, Height, 72.6, kg, 06/14/24 5:25:00 EST, Dry Weight Start Date: 06/21/24 Status: Ordered Quantity: 90.0 Unit: tablet Repeat number: 4 atenolol 50 mg oral tablet = 50 mg, By Mouth, Daily, 0 Refills, Maintenance, 08/23/14 11:47:08 AM EDT, Tablet Start Date: 08/23/14 Status: Ordered Repeat number: 1 Docusate = 100 mg, [...] Refills, Maintenance, 01/29/15 11:16:46 AM EDT, Patch, [id number], 1 patch to each [...] Date: 01/16/24 Status: Ordered Repeat number: 1 mirtazapine 15 mg oral [...] Date: 05/04/23 Status: Ordered Repeat number: 1 Social History Social History Type Response Smoking Status Former smoker; Other : quit >30yrs ago; entered on: 02/15/15 Sex Sex Representation Female (finding) Patient Care team information Care Team Personnel Name: Kelvin Pruett MD Position: Reference Physician Member Role: PCP Address: [address] [place] [address] Telecom: Name: Ana Younger RN Position: [facility] RN Member Role: Primary Care Nurse Name: Osiris Hancock RN Position: [facility] RN Member Role: Primary Care Nurse Name: Ann Gary RN Position: [facility] RN Member Role: Primary Care Nurse Name: Deven Brown RN Position: [facility] RN Member Role: Primary Care Nurse Name: Chani Holguin RN Position: [facility] AMB Nurse Member Role: Primary Care Nurse Name: Becky Wills RN Position: [facility] RN Member Role: Primary Care Nurse Name: Evelia Estrella RN Position: [facility] RN Member Role: Primary Care Nurse Name: Toño De León RN Position: [facility] RN Member Role: Primary Care Nurse Name: Kaur Lewis RN Position: [facility] RN Member Role: Primary Care Nurse Name: Angela Hernandez RN Position: [facility] RN Member Role: Primary Care Nurse Name: Ronnie Nation RN Position: [facility] RN Member Role: Primary Care Nurse Name: Karen Corbett RN, Raisa Marquez Position: S RN Member Role: Primary Care Nurse Name: Bushra Spears LPN Position: S RN Member Role: Primary Care Nurse Name: Philly Parsons RN Position: [facility] Onco RN Member Role: Primary Care Nurse Care Team Related Persons Name: SUNDEEP ZOHAIB Name: FRANCISCO ORLANDO Insurance Providers Guarantor name: TL [facility] Health Plan Information #: 1 Payer: MEDICARE PART B OUTPT Member Number: NA Policy Number: NA Group Number: NA Health Plan Information #: 2 Payer: MEDEX Member Number: NA Policy Number: NA Group Number: NA
== END 2024-07-26 13:56 | disposition home or self-care (01) ==
PROVIDERS: PCP Internal Medicine
DX: I60.9 Nontraumatic subarachnoid hemorrhage, unspecified (principal); I10 Essential (primary) hypertension

== ENCOUNTER → 2024-07-26 12:53 | Outpatient (BNVA) | payer MEDICARE, SELFPAY | PROVIDERS: PCP Internal Medicine | DX: I60.9 Nontraumatic subarachnoid hemorrhage, unspecified (principal); I10 Essential (primary) hypertension | CPT/HCPCS: 99212 ==

== ENCOUNTER 2024-08-27 13:08 | Outpatient (AMB) | payer MEDICARE, SELFPAY ==
[2024-08-27 13:39] VITALS: BP 118/70; PULSE 86; O2SAT 97
--- NOTE | 2024-08-27 13:39 | MHC.OFFWIV ---
Intake Vital Signs 08/27/24 13:39 Weight 160 lb 5 oz BP 118/70 Blood Pressure Location Rt brachial Position Sitting Pulse 86 Pulse Source Pulse Oximeter Pulse Oximetry (%) 97 Oxygen Delivery Method Room Air Intake Visit Reasons: EP pain on LT hand Intake Note: Patient here for left hand pain that started last week. Patient Tobacco Use Status: Former Tobacco user Allergies phenytoin [Dilantin] Allergy (Severe, Verified 08/27/24 13:41) Hives sertraline [SERTRALINE] Allergy (Severe, Verified 08/27/24 13:41) DROPPED SODIUM LEVEL, BP increase Sodium drop trazodone Allergy (Severe, Verified 08/27/24 13:41) respiratory depression aspirin [ASPIRIN] Allergy (Intermediate, Verified 08/27/24 13:41) RISK OF BLEDING NSAIDS (Non-Steroidal Anti-Inflamma Allergy (Unknown, Verified 08/27/24 13:41) risk of bleeding Do you need a note to return to daycare/school/sports/work: No HPI HPI Comments History of Present Illness Details This is an 83-year-old right hand dominant female presenting for evaluation of left hand pain that started last week. Patient denies any injury or trauma preceding the onset of her symptoms. Patient states that her pain started on the dorsal surface of her left hand and has now radiated to the palmar surface of her left hand. Patient has taken Tylenol and oxycodone without complete relief of her discomfort. Patient states that at this point she is unable to make a closed fist with her left hand. Patient denies any left wrist pain or left arm pain. [facility] Medical History Seasonal allergies Osteopenia Constipation Acquired hypothyroidism Overweight (BMI 25.0-29.9) Cataract Seizures Stroke (~2000) Ash ash disease (~2000) Urinary frequency Allergic rhinitis Degenerative disc disease, cervical Neck pain Depression Anxiety Insomnia Epilepsy Obesity (BMI 30-39.9) Osteoarthritis Benign essential hypertension Pure hypercholesterolemia Rib pain on right side Left shoulder pain Recurrent dry cough Pain of right scapula Right-sided thoracic back pain Surgical History History of left knee replacement H/O breast surgery Hx of colonoscopy History of kidney surgery Status post cervical disc replacement History of knee replacement procedure of right knee Hx of knee surgery Family History Father Chronic mental illness Mother Hypertension Other Mental health problem Social History Household Members: None Housing: House Are you a primary residential care facility manager to a significant other at home: No Do you presently have visiting nurse or other home services: Yes Alcohol intake: current Alcohol intake frequency: holidays/special occasions only Alcohol type: beer Comment: not documented previous shift Patient Tobacco Use Status: Former Tobacco user Tobacco use type: Cigarette Years Smoked: 10 e-Cigarette/Vaping Use: Never Used Second Hand Smoke Exposure: No Advance Directives Date on File: 05/23/23 service: No Current occupational status: retired Cognitive needs: Yes (Walker) Hearing needs: No Vision needs: No Review of Systems Const All systems reviewed & are unremarkable except as noted in HPI and below Eyes Reports no additional complaints ENT Reports no additional complaints Card Reports no additional complaints Resp Reports no additional complaints GI Reports no additional complaints Reports no additional complaints Musc Details: left hand pain Skin/Breast Reports system reviewed and no additional complaints, except as documented Neuro Reports no additional complaints Psych Reports no additional complaints Endo Reports no additional complaints Kamari/Lymph Reports no additional complaints Aller/Immun Reports no additional complaints Physical Exam Vital Signs: Last Vital Signs Pulse 86 08/27/24 13:39 BP 118/70 08/27/24 13:39 Pulse Ox 97 08/27/24 13:39 Oxygen Delivery Method Room Air 08/27/24 13:39 Const General: cooperative, comfortable, well developed, alert, awake and Physically active Nutritional Appearance: average body habitus Orientation/consciousness: patient oriented x3 Limitations: no limitations Back/Spine/Pelvis Cervical Spine: normal cervical lordosis, cervical ROM normal, No cervical muscular tenderness, No pain with cervical ROM, No cervical spasm, No Cervical spine tenderness and No cervical ROM abnormal Skin Other: No cutaneous lesions, erythema or edema of the left hand General skin exam: no rashes or lesions noted Neuro Other: Sensation intact throughout the hands bilaterally. General: patient oriented x3 Extrem Other: There is pain to palpation of the left dorsal hand and palmar surfaces of the fingers (2nd, 3rd and 4th digits) as well as the left thenar eminence. General: Yes normal to inspection, No full ROM, Yes capillary refill normal, Yes no joint enlargement and Yes no clubbing, cyanosis or edema Psych Appearance: grossly normal Mental Status: mental status grossly normal Insight: Good insight present (Psych) Judgement: Good judgement present (Psych) Assessment & Plan Assessment & Plan (1) Left hand pain: Comment: Patient does not report any injury or trauma preceding the onset of her symptoms and therefore imaging is deferred at this time. Patient's history coupled with her examination is more consistent with a tendinitis. Patient will be discharged home with a burst course of prednisone. Code(s): M79.642 - Pain in left hand Plan: Prednisone 20 mg daily x5 days. Patient will follow up with her primary care provider as an outpatient or return here to the walk-in as needed. Medications: New prednisone 20 mg PO DAILY 5 tabs 0RF Coding Level of Care Code Est Pt Level 3 (63949) Diagnoses Left hand pain M79.642 Time Spent (min) 20
== END 2024-08-27 14:37 | disposition home or self-care (01) ==
PROVIDERS: PCP Internal Medicine; Visit Provider Physician Assistant
DX: M79.642 Pain in left hand (principal)

== ENCOUNTER → 2024-08-27 13:08 | Outpatient (BNVA) | payer MEDICARE, SELFPAY | PROVIDERS: PCP Internal Medicine; Visit Provider Physician Assistant | DX: M79.642 Pain in left hand (principal) | CPT/HCPCS: 99212 ==

== ENCOUNTER 2024-09-06 06:14 | Outpatient (REF) | payer MEDICARE, SELFPAY ==
[2024-09-06 10:57] LABS: Anion Gap 12 (12-20); Blood Urea Nitrogen 19 mg/dL (9-16); Calcium 9.4 mg/dL (8.4-10.2); Carbon Dioxide 26 mmol/L (22-29); Chloride 109 mmol/L (96-108); Estimated Glomerular Filt Rate > 60; Glucose Random 96 mg/dL (60-115); Potassium 4.1 mmol/L (3.3-5.1); Sodium 143 mmol/L (135-145)
== END 2024-09-06 06:15 | disposition home or self-care (01) ==
LOC: HO.HMGCLDS 06:14
PROVIDERS: PCP Internal Medicine; Referring Provider Internal Medicine Hypertension Specialist; Visit Provider Internal Medicine
DX: E87.1 Hypo-osmolality and hyponatremia (principal)
CPT/HCPCS: 36415; 80048

== ENCOUNTER 2024-09-09 12:35 | Outpatient (AMB) | payer MEDICARE, SELFPAY ==
[2024-09-09 12:35] VITALS: BP 134/60; PULSE 73; O2SAT 98; BMI 27.7
--- NOTE | 2024-09-09 12:38 | A.OFFVIS_ITS ---
Intake Vital Signs 09/09/24 12:35 Height 5 ft 3 in Weight 156 lb 2 oz BMI 27.7 BP 134/60 Blood Pressure Location Lt brachial Position Sitting Pulse 73 Pulse Source Pulse Oximeter Pulse Oximetry (%) 98 Oxygen Delivery Method Room Air Intake Visit Reasons: AWV [id number] Steward/Stewardess Third Class Required: No Accompanied by: Self / Same As Patient Allergies phenytoin [Dilantin] Allergy (Severe, Verified 09/09/24 13:01) Hives sertraline [SERTRALINE] Allergy (Severe, Verified 09/09/24 13:01) DROPPED SODIUM LEVEL, BP increase Sodium drop trazodone Allergy (Severe, Verified 09/09/24 13:01) respiratory depression aspirin [ASPIRIN] Allergy (Intermediate, Verified 09/09/24 13:01) RISK OF BLEDING NSAIDS (Non-Steroidal Anti-Inflamma Allergy (Unknown, Verified 09/09/24 13:01) risk of bleeding Medication List - Last Reconciled 09/09/24 by Kelvin Pruett MD acetaminophen 650 mg (2 x 325 mg) PO Q6H PRN 30 days amlodipine 10 mg See Protocol PO DAILY 90 days atenolol 50 mg PO DAILY atorvastatin 80 mg PO BEDTIME clonidine HCl 0.1 mg PO BEDTIME 30 days docusate sodium 100 mg PO DAILY PRN 30 days irbesartan 300 mg PO DAILY levothyroxine 50 mcg PO DAILY@0600 lorazepam 0.5 mg PO BEDTIME lorazepam 0.5 mg PO BID PRN 30 days mirtazapine 15 mg PO BEDTIME 90 days oxcarbazepine 450 mg PO BEDTIME oxcarbazepine 300 mg PO DAILY@0900 oxycodone-acetaminophen 5-325 mg (Percocet) 1 tab PO Q4-6H PRN polyethylene glycol 3350 (Miralax) 17 grams PO DAILY PRN prednisone 20 mg PO DAILY walker Folding front wheeled walker Do you need a note to return to daycare/school/sports/work: No HPI AWV G0438 HPI Details Patient comes in today for her Medicare Annual Wellness Exam AND follow up visit States that she feels okay but is feeling somewhat upset/anxious at present as she got lost on the way up here and it took her a while to find the hospital and she was very anxious that she was going to be late and her appointment will end up getting cancelled States that she came up from [place] today, which is different from the road that she usually takes to get here and ended up getting lost in [place] She currently denies any headaches or dizziness Denies any chest pains, no increased SOB No nausea/vomiting, no abdominal pain No change in bowel habits noted Needs a couple of her Rx refilled, including her bedtime Clonidine if she is to continue on the Rx She had some follow up labs done a few days ago - to discuss her results ----- [place] of care was reviewed and updated today Patient has a healthcare proxy in place and on file; they were provided with a MOLST form and instructed to complete these as soon as possible IPPE/AWV: c/o of Annual Wellness Visit, subsequent visit. Medical / Social History Reviewed Past Medical History Yes . [place] of Care / Care Team list updated Yes . Surgical/Hospitalization History Yes . Current Medications (including OTC and supplements) Yes . Family History Yes . Tobacco Control form Yes . AUDIT-C (Alcohol use) form Yes . Illicit drug use in Social History Yes . Current diagnosis of depression? No Appropriate PHQ2/PHQ9 completed Yes . Data entered by Psychologist Military Personnel and reviewed by provider Home Safety Throw rugs? No Grab bars? No Raised toilet seats? No Working smoke detectors? Yes Working carbon monoxide detectors? Yes Data entered by Psychologist Military Personnel and reviewed by provider Activities of Daily Living (ADLs) Difficulty bathing or showering? No Difficulty dressing? No Difficulty using the toilet? No Difficulty getting in and out of bed? No Difficulty walking? No Receives help from another person with any of the above tasks? No Instrumental Activities of Daily Living (IADLs) Uses the telephone without help Gets to places out of walking distance without help Goes shopping for groceries without help Prepares own meals without help Does own minor home maintenance without help Does own laundry without help Does own housework without help Manages own money without help Currently takes medications? Yes Takes medication without help End-of-Life Planning Discussed advance directive Yes Advance directive on file Discussed wishes expressed in advance directive agreed to following patient's wishes Fall Risk: Fall History Have you had any falls with injury in the past year? No . Have you had two or more falls in the past year? No . Fall Risk Assessment: No falls in the past year . HRA filled out by the patient, reviewed by Provider and scanned. [facility] Medical History Seasonal allergies Osteopenia Constipation Acquired hypothyroidism Overweight (BMI 25.0-29.9) Cataract Seizures Stroke (~2000) Ash ash disease (~2000) Urinary frequency Allergic rhinitis Degenerative disc disease, cervical Neck pain Depression Anxiety Insomnia Epilepsy Obesity (BMI 30-39.9) Osteoarthritis Benign essential hypertension Pure hypercholesterolemia Rib pain on right side Left shoulder pain Recurrent dry cough Pain of right scapula Right-sided thoracic back pain Surgical History History of left knee replacement H/O breast surgery Hx of colonoscopy History of kidney surgery Status post cervical disc replacement History of knee replacement procedure of right knee Hx of knee surgery Family History Father Chronic mental illness Mother Hypertension Other Mental health problem Social History Household Members: None Housing: House Are you a primary home visit field care manager to a significant other at home: No Do you presently have visiting nurse or other home services: Yes Alcohol intake: current Alcohol intake frequency: holidays/special occasions only Alcohol type: beer Comment: not documented previous shift Patient Tobacco Use Status: Former Tobacco user Tobacco use type: Cigarette Years Smoked: 10 e-Cigarette/Vaping Use: Never Used Second Hand Smoke Exposure: No Advance Directives Date on File: 05/23/23 service: No Current occupational status: retired Cognitive needs: Yes (Walker) Hearing needs: No Vision needs: No Questionnaire Medicare Wellness Checkup What is your age?: 82 or older What gender do you identify with?: female During the past 4 weeks, how much have you been bothered by emotional problems such as feeling anxious, depressed, irritable, sad or downhearted, and blue?: not at all During the past 4 weeks, has your physical & emotional health limited your social activities with family, friends, neighbors, or groups?: not at all During the past 4 weeks, how much bodily pain have you generally had?: moderate pain During the past 4 weeks, was someone available to help you if you needed & wanted help?: yes, as much as I wanted During the past 4 weeks, what was the hardest physical activity you could do for at least 2 minutes?: moderate Can you get to places out of walking distance without help? (For eg., can you travel alone on buses, taxis or drive your car?): Yes Can you go shopping for groceries or clothes without someone's help?: Yes Can you prepare your own meals?: Yes Can you do your housework without help?: Yes Because of any health problems, do you need the help of another person with your personal care needs such as eating, bathing, dressing or getting around the house?: No Can you handle your own money without help?: Yes During the past 4 weeks, how would you rate your health in general?: good During the past 4 weeks how have things been going for you?: pretty well Are you having difficulties driving your car?: no Do you always fasten your seat belt when you are in a car?: yes, usually During past 4 weeks, have you been bothered by the following: never: Falling or dizzy when standing up, Sexual problems?, Trouble eating well?, Teeth or denture problems?, Problems using the telephone? and Tiredness or fatigue? Have you fallen 2 or more times in the past year?: No Are you afraid of falling?: No Are you a smoker?: no During the past 4 weeks, how many drinks of wine, beer, or other alcoholic beverages did you have?: 1 drink or less per week Do you exercise for about 20 minutes 3 or more times a week?: no, I usually do not exercise this much Have you been given information to help with the following?: yes: Hazards in your house that might hurt you? and yes: Keeping track of your medications? How often do you have trouble taking medicines the way you have been told to take them?: I always take medicine as prescribed How confident are you that you can control & manage most of your health problems?: somewhat confident What is your race?: White Mini Mental State Exam (MMSE) Orientation What is the (year) (season) (date) (day) (month)?: year, season, date, day and month Where are we (state) (county) (town or city) (hospital) (floor)?: state, county, town or city, hospital/clinic and floor Score Score: 10 Activity of Daily Living Bathing - sponge bath, tub bath or shower: receives no assistance (gets in/out by self, if usual bathing means Dressing - getting clothes from closets & drawers, including inner/outer garments & fasteners.: gets clothes & gets completely dressed without help Toileting - going to the 'toilet room' for urine/bowel elimination & cleaning self/arranging clothes: goes to toilet room, cleans self, arranges clothes without help Transfer: moves in & out of bed and chair without help (may use support object) Continence: has occasional 'accidents' Feeding: feeds self without help Total Score: 0 Information obtained from: patient Using telephone: independent Traveling: independent Shopping: independent Preparing meals: independent Housework: independent Taking medicine: independent Managing money: independent PHQ-9 Over the last 2 weeks, how often have you been bothered by any of the following problems? 1. Little interest or pleasure in doing things: not at all 2. Feeling down, depressed, or hopeless: not at all 3. Trouble falling or staying asleep, or sleeping too much: several days 4. Feeling tired or having little energy: several days 5. Poor appetite or overeating: not at all 6. Feeling bad about yourself - or that you are a failure or have let yourself or your family down: not at all 7. Trouble concentrating on things, such as reading the newspaper or watching television: not at all 8. Moving or speaking so slowly that other people could have noticed. Or the opposite - being so fidgety or restless that you have been moving around a lot more than usual: not at all 9. Thoughts that you would be better off or of hurting yourself in some way: not at all Total score: 2 Depression Screening Interpretation: Negative Depression Screening Done: Yes 98013 - PHQ-9 Billing: Yes Source: Developed by Drs. Michoacano Hanson, Dayanna Car, Javier Spain and colleagues, with an educational zach from [email or web address]. PHQ-2/PHQ-9 PHQ-2 Over the last 2 weeks, how often have you been bothered by any of the following problems? 1. Little interest or pleasure in doing things: not at all 2. Feeling down, depressed, or hopeless: not at all Total score: 0 If score is 3 or greater, continue 3. Trouble falling or staying asleep, or sleeping too much: several days 4. Feeling tired or having little energy: several days 5. Poor appetite or overeating: not at all 6. Feeling bad about yourself - or that you are a failure or have let yourself or your family down: not at all 7. Trouble concentrating on things, such as reading the newspaper or watching television: not at all 8. Moving or speaking so slowly that other people could have noticed. Or the opposite - being so fidgety or restless that you have been moving around a lot more than usual: not at all 9. Thoughts that you would be better off or of hurting yourself in some way: not at all Total score: 2 0-4 None-Minimal, 5-9 Mild, 10-14 Moderate, 15-19 Moderately Severe, 20-27 Severe Source: Developed by Drs. Michoacano Hanson, Dayanna Car, Javier Spain and colleagues, with an educational zach from [email or web address]. Thrive Questionnaire Date Thrive assessed: 09/09/24 I am a: Patient What is your living situation today?: I have a steady place to live Within the past 12 months, did the food you bought not last and you didn't have the money to get more?: Never true Within the past 12 months, did you worry whether your food would run out before you got money to buy more?: Never true Do you have trouble paying for medicines?: No Do you have trouble getting transportation to medical appointments?: No Do you have trouble paying your heating and electricity bill?: No Do you have trouble taking care of your child, family member or friend?: No Do you have trouble with day-to-day activities such as bathing, preparing meals, shopping, managing finances, etc.?: No Are you currently unemployed and looking for a job?: No Are you interested in more education?: No Please select the resources that you would like help with: None Currently or been in a relationship where the following occur: No concerns reported THRIVE Score: 0 FEI-7 AMB Questionnaire FEI-7 Date FEI - 7 assessed: 09/09/24 Feeling nervous, anxious, or on edge: 0 = Not at all Not being able to stop or control worryin = Not at all Worrying too much about different things: 0 = Not at all Trouble relaxin = Not at all Being so restless that it is hard to sit still: 0 = Not at all Becoming easily annoyed or irritable: 0 = Not at all Feeling afraid as if something awful might happen: 0 = Not at all Total FEI-7 score (0-4 normal; 5-9 mild; 10-14 moderate; 15-21 severe): 0 Source: Developed by Drs. Michoacano Hanson, Dayanna Car, Javier Spain and colleagues, with an educational zach from [email or web address]. Review of Systems Const Denies chills, Reports difficulty sleeping (after she wakes up in the middle of the night), Reports fatigue, Denies fever(s) and Denies headache(s) ENT Denies dysphagia, Denies dizziness, Denies otalgia, Denies headache(s), Denies nasal discharge, Reports neck pain (chronic), Denies odynophagia and Denies sore throat Card Denies chest pain, Denies palpitations and Denies dyspnea Resp Denies chest congestion, Denies cough and Denies dyspnea GI Denies abdominal pain, Denies constipation, Denies dysphagia, Denies heartburn, Denies diarrhea, Denies nausea, Denies odynophagia and Denies vomiting Denies difficulty voiding, Reports nocturia, Denies dysuria and Denies urinary urgency Musc Reports back pain, Reports arthralgias (left knee, on and off, mostly over the anteromedial aspect of the knee), Denies joint swelling and Reports neck pain (chronic) Skin/Breast Denies rash Neuro Denies dizziness and Denies headache(s) Psych Reports anxiety Endo Reports fatigue and Denies palpitations Physical Exam Vital Signs: Last Vital Signs Pulse 73 09/09/24 12:35 BP 134/60 09/09/24 12:35 Pulse Ox 98 09/09/24 12:35 Oxygen Delivery Method Room Air 09/09/24 12:35 BMI result Body Mass Index 27.7 IPPE/AWV: Balance Romberg Yes . Tandem walk Yes . Walk and Turn Yes . Rise from sit to stand No . Vision Corrective lens No Vision screen pass Hearing Whisper test pass . Urinary incont. no. EKG Not clinically necessary. Const General: no acute distress and alert Orientation/consciousness: patient oriented x3 HEENT Ears: TM's normal bilaterally and EAC's normal Throat: Yes posterior oropharynx normal and Yes tonsils normal (no TP congestion) Neck Neck: No lymphadenopathy Thyroid: Thyroid normal Resp Auscultation: clear to auscultation bilaterally, no rales and no wheezes Cardio Rate: regular rate Rhythm: regular rhythm Heart sounds: no murmurs GI Palpation (GI): Soft to palpation and nontender Auscultation: normal bowel sounds General: Yes no CVA tenderness Back/Spine/Pelvis Back: no CVA tenderness Cervical Spine: Cervical spine tenderness Thoracic/Lumbar Spine: lumbar spinal tenderness Skin Rashes: no rashes Neuro General: patient oriented x3, moves all extremities and no focal motor deficits Cognition (Neuro): normal cognition Extrem General: Yes no clubbing, cyanosis or edema Left lower extremity: knee Details: tenderness Location: of the medial joint line; no swelling Psych Thought process: Normal thought process present Results Reviewed Results Reviewed: Laboratory Tests 09/06/24 06:28 Sodium 143 Potassium 4.1 Creatinine 0.89 Estimated GFR > 60 Random Glucose 96 Calcium 9.4 Assessment & Plan Assessment & Plan (1) Medicare annual wellness visit, subsequent: Code(s): Z00.00 - Encounter for general adult medical examination without abnormal findings Plan: HRA form discussed and completed with patient; form will be scanned into patient's chart HELLEN updated Aside from her annual mammogram, which she continues to do due to her Hx of breast cancer, at her current age, she no longer has to continue with any of the other recommended routine cancer screenings (2) Pure hypercholesterolemia: Code(s): E78.00 - Pure hypercholesterolemia, unspecified Plan: Her labs done a few days ago did not include a fasting lipid profile Reinforced low cholesterol diet Continue Atorvastatin 80 mg QD Will have her recheck her labs and fasting lipids in 4 months for follow up (3) Benign essential hypertension: Code(s): I10 - Essential (primary) hypertension Plan: Reinforced low sodium diet - goal is systolic BP of at least 130 mm or less Continue Atenolol 50 mg QD, Amlodipine 10 mg QD, Irbesartan 300 mg QD and Clonidine 0.1 mg Q HS (Rx refilled) She is reminded to continue monitoring her blood pressure regularly (4) Acquired hypothyroidism: Code(s): E03.9 - Hypothyroidism, unspecified Plan: Continue Levothyroxine 50 mcg QD Will recheck her TFTs in 4 months for follow up (5) Hyponatremia: Code(s): E87.1 - Hypo-osmolality and hyponatremia Plan: Her serum sodium was normal at 143 on her labs done a few days ago Patient has been advised by nephrology that her recurrent hyponatremia is likely from decreased free water clearance due to non-osmotic ADH release and that her Oxcarbazepine may be contributing to this and that considerations may be needed to try finding an alternative Rx if corrective measures are not successful She has been instructed to limit her free water intake and substitute that with Gatorade or Powerade instead, which she has been doing, and to also stay on a regular salt diet and these seem to be working as her serum sodium level has been normal more often than not over the past couple of years Will continue to monitor her serum sodium level regularly (6) PAC (premature atrial contraction): Code(s): I49.1 - Atrial premature depolarization Plan: Her EKG done back in April 2023 revealed sinus rhythm with Premature atrial complexes and minimal voltage criteria for LVH, which may be normal variant ( R in aVL ) Repeat 12-lead EKG done on 12/06/2023 showed (+) NSR with sinus arrhythmia, with no PACs noted currently (7) Osteoarthritis of left knee: Code(s): M17.12 - Unilateral primary osteoarthritis, left knee Qualifiers: Osteoarthritis type: primary Qualified Code(s): M17.12 - Unilateral primary osteoarthritis, left knee Plan: She had right knee arthroplasty back in 2015 and her right knee is currently still doing well without any significant issue S/P total left knee arthroplasty (under general anesthesia) with Dr. No last year on 12/06/2023 Patient states that she also went and completed PT and OT for her left knee but she continues to experience recurrent pain especially over the anteromedial aspect of the knee Follow up with orthopedics as scheduled (8) Degenerative disc disease, cervical: Comment: S/P anterior fusion of C5-C7 in 2011 Code(s): M50.30 - Other cervical disc degeneration, unspecified cervical region Plan: Patient states that her neck pain has been manageable lately Cervical spine x-rays done in September 2020 revealed stable post-surgical changes and some mild degenerative changes in the cervical spine Will consider referring her again to physical therapy if her neck pain flares up (9) Breast cancer, left: Comment: 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; stage I ([id number]), grade 1, ER positive, [place] positive, HER2 negative - diagnosed in January 2023 Code(s): C50.912 - Malignant neoplasm of unspecified site of left female breast Qualifiers: Breast location: unspecified site of breast Estrogen receptor status: positive Patient sex: female Qualified Code(s): C50.912 - Malignant neoplasm of unspecified site of left female breast; Z17.0 - Estrogen receptor positive status [ER+] Plan: Patient was diagnosed with invasive lobular carcinoma of the left breast in January 2023 after her routine mammogram revealed (+) calcifications and Bx done came back positive for breast cancer She has since undergone lumpectomy with negative margins She was referred to hematology/oncology and radiation oncology at [facility] (per request) and was started on Letrozole 1 mg QD, which she was advised to continue on for at least 5 years She was seen by radiation oncology at [facility] in late 2022 for consultation as to whether she will require radiation therapy or not - her appointment was delayed when she developed RSV over the holidays at the time and when she was finally seen by Radiation Oncology, she was advised that she was no longer in the treatment window for radiation therapy to benefit her She will need to continue with annual mammography for continuing surveillance and to follow up with oncology as scheduled (10) Anemia: Code(s): D64.9 - Anemia, unspecified Qualifiers: Anemia type: unspecified type Qualified Code(s): D64.9 - Anemia, unspecified Plan: Mild; stable She has been consistently (mildly) anemic for the past couple of years but her RBC indices are normal H/H was at 10.6/32.4 when they were last checked in May 2024 Will continue to monitor her CBC regularly and consider referral to hematology for further evaluation if this progresses (11) Osteopenia: Code(s): M85.80 - Other specified disorders of bone density and structure, unspecified site Qualifiers: Osteopenia location: unspecified Qualified Code(s): M85.80 - Other specified disorders of bone density and structure, unspecified site Plan: Her most recent BMD done at [facility] on 07/14/2023 revealed (+) osteopenia with a T-score of -1.8 at the lumbar spine, -0.8 the left hip and -0.9 at the left femoral neck She is advised to continue taking her vitamin D and calcium supplements daily Fall precautions reinforced (12) Epilepsy: Code(s): G40.909 - Epilepsy, unspecified, not intractable, without status epilepticus Qualifiers: Epilepsy type: unspecified Intractability: not intractable Status epilepticus: without status epilepticus Qualified Code(s): G40.909 - Epilepsy, unspecified, not intractable, without status epilepticus Plan: Stable with no recent recurrence Continue Trileptal 300 mg 1 tablet Q AM and 2 tablets Q PM 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 and was taking Aspirin daily for a while but she stopped taking this many years ago Follow up with neurology as scheduled (13) Constipation: Code(s): K59.00 - Constipation, unspecified Qualifiers: Constipation type: unspecified constipation type Qualified Code(s): K59.00 - Constipation, unspecified Plan: She is encouraged again on increased oral fluids and dietary fiber Continue Senna 8.6 mg Q HS PRN Have advised patient as well in the past that her opioid Rx may also be contributing to her constipation (14) Overactive bladder: Code(s): N32.81 - Overactive bladder Plan: Have advised her that this may also be a reason for her recent nocturia and if she wants to, we can try her on some Rx for this later on Patient has declined in the past and continues to do so - states that she prefers not to take any more medications at this time (15) Insomnia: Code(s): G47.00 - Insomnia, unspecified Qualifiers: Insomnia type: unspecified Qualified Code(s): G47.00 - Insomnia, unspecified Plan: Sleep hygiene reinforced Continue Trazodone 100 mg 1.5 tablets (150 mg) Q HS PRN; she also takes Mirtazapine at bedtime and this may also be helping with her sleep (16) Anxiety: Code(s): F41.9 - Anxiety disorder, unspecified Plan: Continue Lorazepam 0.5 mg 1 to 2 tablets once a day at bedtime as needed (17) Depression: Code(s): F32.9 - Major depressive disorder, single episode, unspecified Qualifiers: Depression Type: unspecified Qualified Code(s): F32.9 - Major depressive disorder, single episode, unspecified Plan: Continue Mirtazapine 15 mg Q HS (18) Overweight (BMI 25.0-29.9): Code(s): E66.3 - Overweight Plan: Reinforced diet/exercise as tolerated/lose weight, although due to her age, comorbidites and physical condition/issues, her activity and exercise tolerance is limited Plan Follow up in 4 months Orders: Orders Complete Blood Count Auto Diff 4 Months D64.9 - Anemia, unspecified Comprehensive Dutton. Panel Fast 4 Months E78.00 - Pure hypercholesterolemia, unspecified Vitamin B12 and Folate 4 Months E53.8 - Deficiency of other specified B group vitamins Lipid Panel 4 Months E78.00 - Pure hypercholesterolemia, unspecified TSH reflex Free T4 4 Months E78.00 - Pure hypercholesterolemia, unspecified UA CC w/rflx Micro + Cult 4 Months R30.0 - Dysuria Vitamin D 25-OH Total 4 Months E55.9 - Vitamin D deficiency, unspecified Medications: Changed 2 From clonidine HCl 0.1 mg PO BEDTIME 30 days 30 tabs 1RF I10 - Essential (primary) hypertension To clonidine HCl 0.1 mg PO BEDTIME 90 days 90 tabs 1RF I10 - Essential (primary) hypertension Refilled lorazepam 0.5 mg PO BID 30 days PRN 60 tabs 0RF anxiety Quality Reporting (2019) Depression/Bipolar (159/160/161/177) PHQ-9: Total score: 2 Coding Level of Care Code Medicare Subsequent (G0439) Est Pt Level 4 (51725) Diagnoses Medicare annual wellness visit, subsequent Z00.00 Pure hypercholesterolemia E78.00 Benign essential hypertension I10 Acquired hypothyroidism E03.9 Hyponatremia E87.1 PAC (premature atrial contraction) I49.1 Primary osteoarthritis of left knee M17.12 Osteoarthritis type: primary Degenerative disc disease, cervical M50.30 Malignant neoplasm of left breast in female, estrogen receptor positive, unspecified site of breast C50.912; Z17.0 Breast location: unspecified site of breast Estrogen receptor status: positive Patient sex: female Anemia, unspecified type D64.9 Anemia type: unspecified type Osteopenia, unspecified location M85.80 Osteopenia location: unspecified Nonintractable epilepsy without status epilepticus, unspecified epilepsy type G40.909 Epilepsy type: unspecified Intractability: not intractable Status epilepticus: without status epilepticus Constipation, unspecified constipation type K59.00 Constipation type: unspecified constipation type Overactive bladder N32.81 Insomnia, unspecified type G47.00 Insomnia type: unspecified Anxiety F41.9 Depression, unspecified depression type F32.9 Depression Type: unspecified Overweight (BMI 25.0-29.9) E66.3 Additional Codes PHQ-9 - 74830 - PHQ-9 Billing: Yes ([id number])
--- OUTSIDE RECORDS SUMMARY | 2024-09-09 14:29 | XMS_ITS | Continuity of Care Document ---
Author Organization [facility] Address [address] [address] [facility], [address] d Floor, [address] [place] [id number]- Care Team Providers Care Spice Room Worker Name Role Phone Flynn VEGA, Kelvin Johnson Primary Care Physician [place] [facility] [place]): [place] - 09/08/24 [facility] [address] [facility] 3rd Floor, [address] [place] [address]- Attending Physician: Ad Mariscal Admitting Physician: Ad Mariscal Referring Physician: AdmtrAd Encounter Type: Triage Allergies, Adverse Reactions, Alerts Substance Criticality Severity Reaction Reaction Severity Status aspirin Active sertraline Active Dilantin Active Medications amLODIPine 10 mg oral tablet = 10 mg, By Mouth, Daily, # 30 tablet, 0 Refills, Maintenance, 02/20/15 10:52:13 AM EDT, Tablet, [id number] Start Date: 02/20/15 Status: [...] mg, By Mouth, Daily, 0 Refills, Maintenance, 3/28/15 11:47:08 AM EDT, Tablet Start Date: 08/23/14 [...] Refills, Maintenance, 01/29/15 11:16:46 AM EDT, Patch, [id number], 1 patch to each [...] Position: Reference Physician Member Role: PCP Address: [address] [place] [address]- Telecom: Name: Ana Younger RN Position: [facility] RN Member Role: Primary Care Nurse Name: Osiris Hancock RN Position: [facility] RN Member Role: Primary Care Nurse Name: Ann Gary RN Position: [facility] RN Member Role: Primary Care Nurse Name: Deven Brown RN Position: [facility] RN Member Role: Primary Care Nurse Name: Chani Holguin RN Position: [facility] AMB Nurse Member Role: Primary Care Nurse Name: Becky Wills RN Position: [facility] RN Member Role: Primary Care Nurse Name: Evelia Estrella RN Position: [facility] RN Member Role: Primary Care Nurse Name: Toño De León RN Position: [facility] RN Member Role: Primary Care Nurse Name: Kaur Lewis RN Position: [facility] RN Member Role: Primary Care Nurse Name: Angela Hernandez RN Position: [facility] RN Member Role: Primary Care Nurse Name: Ronnie Nation RN Position: [facility] RN Member Role: Primary Care Nurse Name: Karen Corbett RN, Raisa Marquez Position: [facility] RN Member Role: Primary Care Nurse Name: Bushra Spears LPN Position: [facility] RN Member Role: Primary Care Nurse Name: Jaqueline ELI, Philly Sousa Position: [facility] Onco RN Member Role: Primary Care Nurse Care Team Related Persons Name: SUNDEEPZOHAIB Name: FRANCISCO ORLANDO Insurance Providers Guarantor name: TL ContehTRISTA Health Plan Information #: 1 Payer: MEDICARE PART B OUTPT Member Number: NA Policy Number: NA Group Number: NA Health Plan Information #: 2 Payer: MEDEX Member Number: NA Policy Number: NA Group Number: NA
== END 2024-09-09 13:25 | disposition home or self-care (01) ==
LOC: HO.HMCH 12:35
PROVIDERS: PCP Internal Medicine; Visit Provider Internal Medicine
DX: Z00.00 Encounter for general adult medical examination without abnormal findings (principal); E78.00 Pure hypercholesterolemia, unspecified; G40.909 Epilepsy, unspecified, not intractable, without status epilepticus; C50.912 Malignant neoplasm of unspecified site of left female breast; I10 Essential (primary) hypertension; E03.9 Hypothyroidism, unspecified; E87.1 Hypo-osmolality and hyponatremia; I49.1 Atrial premature depolarization; M17.12 Unilateral primary osteoarthritis, left knee; M50.30 Other cervical disc degeneration, unspecified cervical region; Z17.0 Estrogen receptor positive status [ER+]; D64.9 Anemia, unspecified

== ENCOUNTER → 2024-09-09 12:35 | Outpatient (BNVA) | payer MEDICARE, SELFPAY | PROVIDERS: PCP Internal Medicine; Visit Provider Internal Medicine | DX: Z00.01 Encounter for general adult medical examination with abnormal findings (principal); F41.9 Anxiety disorder, unspecified; E78.00 Pure hypercholesterolemia, unspecified; I10 Essential (primary) hypertension; E03.9 Hypothyroidism, unspecified; E87.1 Hypo-osmolality and hyponatremia; I49.1 Atrial premature depolarization; M17.12 Unilateral primary osteoarthritis, left knee; M50.30 Other cervical disc degeneration, unspecified cervical region; C50.912 Malignant neoplasm of unspecified site of left female breast; D64.9 Anemia, unspecified; M85.80 Other specified disorders of bone density and structure, unspecified site; G40.909 Epilepsy, unspecified, not intractable, without status epilepticus; K59.00 Constipation, unspecified; N32.81 Overactive bladder; G47.00 Insomnia, unspecified; F32.9 Major depressive disorder, single episode, unspecified; E66.3 Overweight; E53.8 Deficiency of other specified B group vitamins; R30.0 Dysuria; E55.9 Vitamin D deficiency, unspecified; Z17.0 Estrogen receptor positive status [ER+]; Z87.891 Personal history of nicotine dependence; Z68.27 Body mass index [BMI] 27.0-27.9, adult | CPT/HCPCS: 96127; 99212 ==

== ENCOUNTER 2024-09-19 10:07 | Outpatient (AMB) | payer MEDICARE, SELFPAY ==
[2024-09-19 10:06] VITALS: BP 134/66; PULSE 70; O2SAT 96; BMI 28.4
--- NOTE | 2024-09-19 10:06 | HO.NEPHOV ---
Vital Signs 09/19/24 10:06 Height 5 ft 3 in Weight 160 lb 6 oz BMI 28.4 BP 134/66 Blood Pressure Location Rt brachial Position Sitting Pulse 70 Pulse Source Pulse Oximeter Pulse Oximetry (%) 96 Oxygen Delivery Method Room Air Intake Visit Reasons: Acute hyponatremia/ LVM Allergies phenytoin [Dilantin] Allergy (Severe, Verified 09/19/24 10:06) Hives sertraline [SERTRALINE] Allergy (Severe, Verified 09/19/24 10:06) DROPPED SODIUM LEVEL, BP increase Sodium drop trazodone Allergy (Severe, Verified 09/19/24 10:06) respiratory depression aspirin [ASPIRIN] Allergy (Intermediate, Verified 09/19/24 10:06) RISK OF BLEDING NSAIDS (Non-Steroidal Anti-Inflamma Allergy (Unknown, Verified 09/19/24 10:06) risk of bleeding Medication List - Last Reconciled 09/19/24 by Saurav Ariza MD acetaminophen 650 mg (2 x 325 mg) PO Q6H PRN 30 days amlodipine 10 mg See Protocol PO DAILY 90 days atenolol 50 mg PO DAILY atorvastatin 80 mg PO BEDTIME clonidine HCl 0.1 mg PO BEDTIME 90 days docusate sodium 100 mg PO DAILY PRN 30 days irbesartan 300 mg PO DAILY levothyroxine 50 mcg PO DAILY@0600 lorazepam 0.5 mg PO BEDTIME lorazepam 0.5 mg PO BID PRN 30 days mirtazapine 15 mg PO BEDTIME 90 days oxcarbazepine 450 mg PO BEDTIME oxcarbazepine 300 mg PO DAILY@0900 oxycodone-acetaminophen 5-325 mg (Percocet) 1 tab PO Q4-6H PRN polyethylene glycol 3350 (Miralax) 17 grams PO DAILY PRN walker Folding front wheeled walker HPI Comments Details: Jennie is a pleasant 83 year year old woman with a history of moyamoya disease. She has history of seizures and she has been on Trileptal. She was recently hospitalized at [facility] and was found to hyponatremia. Trileptal was discontinued and she was placed on Keppra apparently she did not tolerate Keppra and she has been placed back on oxcarbazepine 300 mg b.i.d.. She had a repeat admission to [facility] for hyponatremia. Extensive workup was done. She was unable to tolerate urea powder due to the taste. She is drinking about 4 glasses of water at home. She continues have fatigue. Recent thyroid function was normal cortisol was normal. Urine osmolality was 295 with a urine sodium of 96 back in December of 2023. 09/19/24 Overall doing well Clonidine 0.1 mg PO QD has been added by PCP for regulating BP Has cough for the past few weeks and attributes to allergies. No fever or dyspnea Still drink coke and root beer- 2 cans a day [facility] Medical History Seasonal allergies Osteopenia Constipation Acquired hypothyroidism Overweight (BMI 25.0-29.9) Cataract Seizures Stroke (~2000) Ash ash disease (~2000) Urinary frequency Allergic rhinitis Degenerative disc disease, cervical Neck pain Depression Anxiety Insomnia Epilepsy Obesity (BMI 30-39.9) Osteoarthritis Benign essential hypertension Pure hypercholesterolemia Rib pain on right side Left shoulder pain Recurrent dry cough Pain of right scapula Right-sided thoracic back pain Surgical History History of left knee replacement H/O breast surgery Hx of colonoscopy History of kidney surgery Status post cervical disc replacement History of knee replacement procedure of right knee Hx of knee surgery Family History Father Chronic mental illness Mother Hypertension Other Mental health problem Social History Household Members: None Housing: House Are you a primary childcare worker to a significant other at home: No Do you presently have visiting nurse or other home services: Yes Alcohol intake: current Alcohol intake frequency: holidays/special occasions only Alcohol type: beer Comment: not documented previous shift Patient Tobacco Use Status: Former Tobacco user Tobacco use type: Cigarette Years Smoked: 10 e-Cigarette/Vaping Use: Never Used Second Hand Smoke Exposure: No Advance Directives Date on File: 05/23/23 service: No Current occupational status: retired Cognitive needs: Yes (Walker) Hearing needs: No Vision needs: No Review of Systems Neuro Denies confusion Psych Denies confusion Physical Exam Vital Signs: Last Vital Signs Pulse 70 09/19/24 10:06 BP 134/66 09/19/24 10:06 Pulse Ox 96 09/19/24 10:06 Oxygen Delivery Method Room Air 09/19/24 10:06 BMI result Body Mass Index 28.4 Const General: No confusion Orientation/consciousness: No confusion Eyes General: appearance normal, both eyes and all related structures Visual Lomeli: normal visual lomeli by confrontation Neck Neck: Yes supple and Yes no JVD Resp Effort & Inspection: normal respiratory effort and respiratory effort not decreased Cardio Palpation: no palpable S3 and no palpable S4 Heart sounds: no rubs GI Inspection: Yes normal to inspection Palpation (GI): Soft to palpation Percussion: Yes normal to percussion Auscultation: normal bowel sounds General: Yes no CVA tenderness Back/Spine/Pelvis Back: no CVA tenderness Skin General skin exam: no petechiae and no purpura Neuro General: No confusion Extrem General: No clubbing and No edema Results Reviewed Nephrology Results: Hgb 10.6 g/dl (12.0-16.0) L 06/27/24 WBC 8.4 X10*3/uL (4.8-10.8) 06/27/24 Plt Count 360 X10*3/uL (160-400) 06/27/24 Sodium 143 mmol/L (135-145) 09/06/24 Potassium 4.1 mmol/L (3.3-5.1) 09/06/24 Chloride 109 mmol/L (96-108) H 09/06/24 Carbon Dioxide 26 mmol/L (22-29) 09/06/24 BUN 19 mg/dL (9-16) H 09/06/24 Creatinine 0.89 mg/dL (0.5-1.4) 09/06/24 Calcium 9.4 mg/dL (8.4-10.2) 09/06/24 Urine Protein Negative mg/dL (Neg-Trace) 06/27/24 Assessment & Plan Assessment & Plan (1) Acute hyponatremia: Code(s): E87.1 - Hypo-osmolality and hyponatremia Category: Medical (2) HTN (hypertension): Code(s): I10 - Essential (primary) hypertension Category: Medical Qualifiers: Hypertension type: unspecified Qualified Code(s): I10 - Essential (primary) hypertension Plan Elderly woman with h/o hyponatremia. Jennie most likely has decreased free water clearance due to non osmotic ADH release. Oxcarbazepine could be playing a role in decreasing free water clearance. Recent thyroid function was normal Cortisol level was normal. BP is better controlled Recommendation Limit free water intake. Encouraged her to drink Gatorade or Powerade instead. Keep her on regular salt diet. No need to add sodium chloride tablets due to underlying hypertension. She is unable to tolerate urea powder and no indication at this time Goal is to maintain serum sodium more than 133 millimoles. If the serum sodium persistently stays less than 133 we should consider switching oxcarbazepine to a different agent. I have answered all her questions Orders: Orders Basic Metabolic Panel 6 Months E87.1 - Hypo-osmolality and hyponatremia Coding Level of Care Code Est Pt Level 4 (83809) Diagnoses Acute hyponatremia E87.1 Hypertension, unspecified type I10 Hypertension type: unspecified
== END 2024-09-19 10:27 | disposition home or self-care (01) ==
LOC: HO.HKA 10:07
PROVIDERS: PCP Internal Medicine; Visit Provider Internal Medicine Hypertension Specialist
DX: E87.1 Hypo-osmolality and hyponatremia (principal); I10 Essential (primary) hypertension
CPT/HCPCS: 99214

== ENCOUNTER → 2024-09-19 10:07 | Outpatient (BNVA) | payer MEDICARE, SELFPAY | PROVIDERS: PCP Internal Medicine; Visit Provider Internal Medicine Hypertension Specialist | DX: E87.1 Hypo-osmolality and hyponatremia (principal); I10 Essential (primary) hypertension | CPT/HCPCS: 99212 ==

== ENCOUNTER 2025-01-13 10:40 | Outpatient (REF) | payer MEDICARE, SELFPAY ==
--- NOTE | ~2025-01-13 | XR_ITS ---
EXAMINATION: XR KNEE 3 VIEWS LEFT HISTORY: M25.562 - Pain in left knee COMPARISON: Comparison is made with the prior examination dated 12/06/2023. FINDINGS: Standing AP views of both knees and additional lateral and sunrise patellar views of the left knee are submitted. The patient is again noted to be status post total knee arthroplasty. The orthopedic elements are in anatomic alignment. There is no radiographic evidence of loosening. There is no fracture or dislocation. There are vascular calcifications. The patient is also status post right total knee arthroplasty. XR/XR knee LT 3V IMPRESSION: Status post left total knee arthroplasty without change. Electronically signed by: Michoacano Ashton MD 01/13/2025 01:24 PM EDT
--- OUTSIDE RECORDS SUMMARY | 2025-01-13 11:40 | XMS_ITS | Patient Health Record ---
Author Organization [facility] [place] Address [address] [place] [address] Care Team Providers Care Workers Compensation Defense Attorney Name Role Phone Kelvin Pruett MD Primary Care Provider Naren Navarrete Unavailable [phone] Allergies Allergen (clinical drug ingredient) Drug/Non Drug Allergy documented on EMR Reaction Allergy Type Onset Date Status aspirin Aspirin Unknown Drug Allergy Active phenytoin Dilantin Unknown Drug Allergy Active Sertraline HCl Unknown Drug Allergy Ac tive Reason For Referral No Information Medications Medication SIG (Take, Route, Frequency, Duration) Notes Start Date End Date Status Night Splint AFO - L1930 as directed Active amLODIPine Besylate 5 MG 1 tablet Orally Once a day; Duration: 30 day(s) Active AFO-fixed . 1 . Wear daily; Duration: . Active Endocet 5-325 MG 1 tablet as needed O rally every 6 hrs Active Physical Therapy . . . 2-3x/week; Durat ion: 3-4 weeks Active Atenolol 50 MG 1 tablet Orally Once a day; Duration: 30 day(s) Active Walking Boot/Pneumatic As directed Wear Daily; Duration: Until further notice Active Mirtazapine 15 MG 1 tablet at bedtime Orally Once a day; Duration: 30 day(s) Active LORazepam 0.5 MG 1 tablet as needed O rally every 6 hrs Active Irbesartan 300 MG 1 tablet Orally Once a day; Duration: 30 day(s) Active Lipitor 80 MG 1 tablet Orally Once a day; Duration: 30 day(s) Active traZODone HCl 100 MG 1 tablet at bedtime Orally Once a day; Duration: 30 day(s) Active Trileptal 300 MG 1 tablet Orally Twic e a day; Duration: 30 day(s) Active Social History Tobacco Use: Social History Observation Description Date Details (start date - stop date) Former Smoker NA - NA Tobacco Use/Smoking Question Answer Notes Are you a: former smoker When did you stop smoking? 50 yrs ago Additional Findings: Tobacco Non-User Current no n-smoker Alcohol Screen Question Answer Notes Did you have a drink containing alcohol in the p ast year? No Points 0 Interpretation Negative Tobacco use other than smoking: Question Answer Notes Are you an other tobacco user? No Problems Problem Type SNOMED Code ICD Code Onset Dates Problem Status W/U Status Risk Notes Problem Localized, primary osteoarthritis of the ankle and/or foot (127946888) Primary osteoarthrit is, right ankle and foot (M19.071) Active confirmed Plan Of Treatment Pending Test Test Name Order Date X ray : Foot, right 3V 03/01/201930804, J0702- INJECT TENDON ORIGIN/INSER T 08/28/2019, J0702- INJECT or DRAIN, JOINT/BUR SA 10/02/2019, J0702- INJECT or DRAIN, JOINT/BUR SA 05/13/201913285,[id number] TENDON SHEATH/LIGAMENT 1 Insurance Providers Payer Name Payer Address Payer Phone Subscriber Number Group Number Insured Name Patient Relationship to Insured Coverage Start Date Coverage End Date Medicare National Govt Svcs [employer] [address] [place] [address] [id number] Jennie Stone Self - patient is the insured Med [employer] [facility] [address] [place] [address] [id number] Jennie Stone Self - patient is the insured Medical (General) History Medical History History ICD Code Anxiety Back,Hip,and Knee pain Epilepsy Headaches/Migraines High blood pressure Joint implants/screws Surgical History Surgery Date(Month/Year) knee surgery 2016 neck surgery kidney surgery Hospitalization History Reason Date(Month/Year) [facility] [place] right ankle 02/22/19
--- OUTSIDE RECORDS SUMMARY | 2025-01-13 11:40 | XMS_ITS | Patient Health Record ---
Author Organization [facility] Address [address] [place] [address] Care Team Providers Care Glass Technician/Installer Name Role Phone Flynn VEGA, Kelvin Primary Care Provider Contreras Gomez Jr Unavailable Allergies Allergen (clinical drug ingredient) Drug/Non Drug Allergy documented on EMR Reaction Allergy Type Onset Date Status Sertraline HCl Unknown Drug Allergy Ac tive phenytoin Dilantin Unknown Drug Allergy Active aspirin Aspirin Unknown Drug Allergy Active Reason For Referral No Information Medications Medication SIG (Take, Route, Frequency, Duration) Notes Start Date End Date Status amLODIPine Besylate 10 MG 1 tablet Orall y Once a day Active Mirtazapine 15 MG 1 tablet at bedtime Orally Once a day Active Irbesartan 300 MG 1 tablet Orally Once a day Active traZODone HCl 100 MG 1 tablet at bedtime Orally Once a day Active Trileptal 300 MG/5ML 1 tablet in am and 1 and half at pm Orally Twice a day Active Colyte with Flavor Packs 240 GM As directed Orally Over the specified time. for 1 day(s) Active Lipitor 80 MG 1 tablet Orally in evening Active Atenolol 50 MG 1 tablet Orally Once a day Active LORazepam 0.5 MG 1 tablet as needed O rally as needed Active Percocet 5-325 MG 1 tablet as needed O rally as needed Active Immunizations Vaccine Route Administration Date Status Comme nts Flu vaccine no Preserv 3 and > Unknown 04/03/2017 Admin istered Problems Problem Type SNOMED Code ICD Code Onset Dates Problem Status W/U Status Risk Notes Problem Cough (72305586) Cough (786.2) Active confirmed Problem Rectal bleeding (22495233) Rectal bleeding (569.3) Active confirmed Problem 996883568 Colon cancer screening (Z12.11) Active confirmed Plan Of Treatment Pending Test Test Name Order Date XR CHEST 2 VIEW PA & LAT 12/16/2011 Future Test Test Name Order Date COLONOSCOPY 12/16/2011 COLONOSCOPY 08/18/2017 Insurance Providers Payer Name Payer Address Payer Phone Subscriber Number Group Number Insured Name Patient Relationship to Insured Coverage Start Date Coverage End Date MEDICARE OF [place] [address] [place] [address] [id number] TL ORLANDO Self - patient is the insured MEDEX ATTN CLAIMS [address] [place] [phone] [id number] TL ORLANDO Self - patient is the insured Medical (General) History Medical History History ICD Code colonoscopy 10-11-2006 hx of colon polyps seizure disorder elevated cholesterol hypertension hemorrhagic CVA moyamoya disease Surgical History Surgery Date(Month/Year) left shoulder 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
== END 2025-01-13 10:41 | disposition home or self-care (01) ==
LOC: HO.HOSX 10:40
PROVIDERS: Visit Provider Orthopaedic Surgery
DX: M25.562 Pain in left knee (principal); Z96.652 Presence of left artificial knee joint
CPT/HCPCS: 73562; 99212

== ENCOUNTER 2025-01-13 11:32 | Outpatient (AMB) | payer MEDICARE, SELFPAY ==
--- NOTE | 2025-01-13 11:43 | A.OFFVIS_ITS ---
Intake Visit Reasons: OV-s/p Left TKA 12/06/23 Intake Note: Jennie is an 83 year old female who presents today for a follow up appointment s/p Left TKA 12/06/23. Patient reports that she is having some continued pain, she has difficulty standing from a seated position. The knee is feeling weak, or unstable when sitting too low. The knee is cracking frequentlhy with extension. Denies falls. She takes Oxycodone PRN Pain Allergies phenytoin (Dilantin) Allergy (Severe, Verified 01/13/25 11:45) Hives sertraline (SERTRALINE) Allergy (Severe, Verified 01/13/25 11:45) DROPPED SODIUM LEVEL, BP increase Sodium drop trazodone Allergy (Severe, Verified 01/13/25 11:45) respiratory depression aspirin (ASPIRIN) Allergy (Intermediate, Verified 01/13/25 11:45) RISK OF BLEDING NSAIDS (Non-Steroidal Anti-Inflamma Allergy (Unknown, Verified 01/13/25 11:45) risk of bleeding HPI HPI OV-s/p Left TKA 12/06/23: Details: Jennie is an 83 year old female who presents today for a follow up appointment s/p Left TKA 12/06/23. Patient reports that she is having some continued pain, she has difficulty standing from a seated position. The knee occasionally feels weak. She has difficulty standing from deep squat. She describes crepitus with extension. Denies falls. She takes Oxycodone PRN Pain PFSH Medical History Seasonal allergies Osteopenia Constipation Acquired hypothyroidism Overweight (BMI 25.0-29.9) Cataract Seizures Stroke (~2000) Ash ash disease (~2000) Urinary frequency Allergic rhinitis Degenerative disc disease, cervical Neck pain Depression Anxiety Insomnia Epilepsy Obesity (BMI 30-39.9) Osteoarthritis Benign essential hypertension Pure hypercholesterolemia Rib pain on right side Left shoulder pain Recurrent dry cough Pain of right scapula Right-sided thoracic back pain Surgical History History of left knee replacement H/O breast surgery Hx of colonoscopy History of kidney surgery Status post cervical disc replacement History of knee replacement procedure of right knee Hx of knee surgery Family History Father Chronic mental illness Mother Hypertension Other Mental health problem Social History Household Members: None Housing: House Are you a primary inpatient care manager rn to a significant other at home: No Do you presently have visiting nurse or other home services: Yes Alcohol intake: current Alcohol intake frequency: holidays/special occasions only Alcohol type: beer Comment: not documented previous shift Patient Tobacco Use Status: Former Tobacco user Tobacco use type: Cigarette Years Smoked: 10 e-Cigarette/Vaping Use: Never Used Second Hand Smoke Exposure: No Advance Directives Date on File: 05/23/23 service: No Current occupational status: retired Cognitive needs: Yes (Walker) Hearing needs: No Vision needs: No Physical Exam Extrem Other: Incision clean dry and intact. Full range of motion bilateral knees. No effusion bilaterally. She does have crepitus with extension of the left knee. Results Reviewed Results Reviewed: I personally reviewed relevant radiographs. Left total knee arthroplasty in expected post operative position with no hardware complications or evidence of loosening. Unchanged compared to prior. Assessment & Plan Assessment & Plan (1) Status post total left knee replacement: Code(s): Z96.652 - Presence of left artificial knee joint Category: Surgical Plan: Jennie is 1 year postop and continues to have anterior knee pain with standing from a seated position and occasional pain. She describes crepitus with extension. There is no effusion and no evidence of loosening on radiographs. Gave her a knee sleeve. I did order an ESR and a CRP but again there was no evidence of infection. Orders: Orders XR knee LT 3V Today M25.562 - Pain in left knee Erythrocyte Sedimentation Rate Today Z96.652 - Presence of left artificial knee joint C Reactive Protein Today Z96.652 - Presence of left artificial knee joint Coding Level of Care Code Est Pt Level 3 (36911) Diagnoses Status post total left knee replacement Z96.652
== END 2025-01-13 12:12 | disposition home or self-care (01) ==
LOC: HO.HOS 11:33
PROVIDERS: PCP Internal Medicine; Visit Provider Orthopaedic Surgery
DX: Z47.89 Encounter for other orthopedic aftercare (principal); Z96.652 Presence of left artificial knee joint
CPT/HCPCS: 99213

== ENCOUNTER → 2025-01-13 11:35 | Outpatient (BNV) | payer MEDICARE, SELFPAY | PROVIDERS: Visit Provider Radiology Diagnostic Radiology | DX: M25.562 Pain in left knee (principal); Z96.652 Presence of left artificial knee joint | CPT/HCPCS: 73562 ==

== ENCOUNTER 2025-02-26 13:40 | Outpatient (REF) | payer MEDICARE, SELFPAY ==
--- NOTE | ~2025-02-26 | US_ITS ---
EXAMINATION: MM DIAGNOSTIC DIGITAL BREAST TOMOSYNTHESIS, BILATERAL Limited left breast ultrasound. CLINICAL INFORMATION: History of left breast cancer in 2022 status post lumpectomy. Patient has left breast palpable lump and pain. COMPARISON: Mammography: Comparison is made with relevant prior exams. TECHNIQUE: Digital breast mammography with tomosynthesis is performed in both the craniocaudal and mediolateral oblique views along with computer-aided detection (CAD). FINDINGS: There are scattered areas of fibroglandular density. Left: Post lumpectomy changes. No suspicious calcifications masses or other abnormal findings. Targeted color Doppler ultrasound scanning in the area of the patient's palpable lump and pain from 11-2 o'clock and upper outer quadrant low axilla demonstrates normal fibronodular breast tissue. There is no sonographic abnormal finding. Right: There are no significant masses, abnormal calcifications, or other abnormalities. Results are discussed with the patient at time of visit. US/US breast LT limited IMPRESSION: Left: Postoperative changes. No mammographic or sonographic abnormal finding to account for the areas of palpable lump and pain. Recommend clinical evaluation follow-up. Right: Negative. ASSESSMENT: BI-RADS Category 1: Negative (accession [id number]), Category 2: Benign (accession [id number]) RECOMMENDATION: 1 year F/U This patient's information was entered into a reminder system with a target due date for their next mammogram. Electronically signed by: Anna Redd DO 02/26/2025 02:45 PM EDT
--- NOTE | ~2025-02-26 | MM_ITS ---
EXAMINATION: MM DIAGNOSTIC DIGITAL BREAST TOMOSYNTHESIS, BILATERAL Limited left breast ultrasound. CLINICAL INFORMATION: History of left breast cancer in 2022 status post lumpectomy. Patient has left breast palpable lump and pain. COMPARISON: Mammography: Comparison is made with relevant prior exams. TECHNIQUE: Digital breast mammography with tomosynthesis is performed in both the craniocaudal and mediolateral oblique views along with computer-aided detection (CAD). FINDINGS: There are scattered areas of fibroglandular density. Left: Post lumpectomy changes. No suspicious calcifications masses or other abnormal findings. Targeted color Doppler ultrasound scanning in the area of the patient's palpable lump and pain from 11-2 o'clock and upper outer quadrant low axilla demonstrates normal fibronodular breast tissue. There is no sonographic abnormal finding. Right: There are no significant masses, abnormal calcifications, or other abnormalities. Results are discussed with the patient at time of visit. MM/MM tomosynthesis diagnostic BI IMPRESSION: Left: Postoperative changes. No mammographic or sonographic abnormal finding to account for the areas of palpable lump and pain. Recommend clinical evaluation follow-up. Right: Negative. ASSESSMENT: BI-RADS Category 1: Negative (accession [id number]), Category 2: Benign (accession [id number]) RECOMMENDATION: 1 year F/U This patient's information was entered into a reminder system with a target due date for their next mammogram. Electronically signed by: Anna Redd DO 02/26/2025 02:45 PM EDT
== END 2025-02-26 13:41 | disposition home or self-care (01) ==
LOC: HO.MAMMO 13:40
PROVIDERS: PCP Internal Medicine; Visit Provider Surgery
DX: Z85.3 Personal history of malignant neoplasm of breast (principal)
CPT/HCPCS: 76642; 77062; 77066

== ENCOUNTER → 2025-02-26 14:00 | Outpatient (BNV) | payer MEDICARE, SELFPAY | PROVIDERS: PCP Internal Medicine; Visit Provider Internal Medicine | DX: C50.912 Malignant neoplasm of unspecified site of left female breast (principal); Z98.890 Other specified postprocedural states | CPT/HCPCS: 76642; 77066; G0279 ==

== ENCOUNTER 2025-03-10 07:53 | Outpatient (REF) | payer MEDICARE, SELFPAY ==
--- OUTSIDE RECORDS SUMMARY | 2025-03-10 07:57 | XMS_ITS | Patient Health Record ---
Author Organization [facility] jace Abdullahi Address [address] [place] [address] Care Team Providers Care Dip Guider Stoves Name Role Phone Kelvin Pruett MD Primary Care Provider Naren Serrano Unavailable [phone] Allergies Allergen (clinical drug ingredient) Drug/Non Drug [...] primary osteoarthritis of the ankle and/or foot (393930450) Primary osteoarthrit is, right ankle and foot (M19.071) Active confirmed Plan Of Treatment Pending Test Test Name Order Date X ray : Foot, right 3V 03/01/201956460, J0702- INJECT TENDON ORIGIN/INSER T 08/28/2019, J0702- INJECT or DRAIN, JOINT/BUR SA 10/02/2019, J0702- INJECT or DRAIN, JOINT/BUR SA 05/13/201989460,Z7534-BMM TENDON SHEATH/LIGAMENT 1 Insurance Providers Payer Name Payer Address Payer Phone Subscriber Number Group Number Insured Name Patient Relationship to Insured Coverage Start Date Coverage End Date Medicare National Govt S[employer] [address] [facility] [place] [address] [id number] Jennie Stone Self - patient is the insured [employer] [address] [place] [address] [id number] Jennie Stone Self - patient is the insured Medical (General) History Medical History History ICD Code Anxiety Back,Hip,and Knee pain Epilepsy Headaches/Migraines High blood pressure Joint implants/screws Surgical History Surgery Date(Month/Year) knee surgery 2016 neck surgery kidney surgery Hospitalization History Reason Date(Month/[place] [facility] [place]
--- OUTSIDE RECORDS SUMMARY | 2025-03-10 07:57 | XMS_ITS | Patient Health Record ---
Author Organization [facility] Address [address] [place] [address] Care Team Providers Care Front Desk Associate Name Role Phone Flynn VEGA, Kelvin Primary [...] GM As directed Orally Over the specified time.; Duration: 1 day(s) Active Lipitor 80 MG 1 [...] Status W/U Status Risk Notes Problem Cough (31146958) Cough (786.2) Active confirmed Problem Rectal bleeding (63892998) Rectal bleeding (569.3) Active confirmed Problem Colon cancer screening (262073919) Colon cancer screening (Z12.11) Active confirmed Plan Of Treatment Pending Test Test Name Order Date XR CHEST 2 VIEW PA & LAT 12/16/2011 Future Test Test Name Order Date COLONOSCOPY 12/16/2011 COLONOSCOPY 08/18/2017 Insurance Providers Payer Name Payer Address Payer Phone Subscriber Number Group Number Insured Name Patient Relationship to Insured Coverage Start Date Coverage End Date MEDICARE OF [place] [address] [place] [id number] TL [place] Self - patient is the insured [employer] ATT[employer] CLAIMS [address] [place] [phone] [id number] TL [place] Self - patient is the [...]
[2025-03-10 10:21] LABS: MANUAL DIFF FLAG NO
[2025-03-10 10:24] LABS: Hematocrit 35.0 % (37.0-47.0); Hemoglobin 11.2 g/dl (12.0-16.0); Imm Gran Abs Auto 0.03 X10*3/uL (0.00-0.03); Imm Gran Pct Auto 0.4 % (0.0-0.4); Lymphocytes Absolute Auto 1.8 X10*3/uL (1.2-4.9); Mean Corpuscular HGB Conc 32.0 g/dl (31.0-35.0); Mean Corpuscular Hemoglobin 30.0 pg (27.0-33.0); Mean Corpuscular Volume 93.8 fL (80.0-98.0); NRBC Abs Auto 0.000 X10*3/uL (0.0-0.012); NRBC Pct Auto 0.0 /100WBC (0.0-0.2); Platelet Count 267 X10*3/uL (160-400); Red Blood Count 3.73 X10*6/uL (4.20-5.50); White Blood Count 7.0 X10*3/uL (4.8-10.8)
[2025-03-10 10:49] LABS: Alanine Aminotransferase 21 U/L (0-31); Albumin Level 4.3 g/dL (3.5-5.0); Alkaline Phosphatase 112 U/L (39-117); Anion Gap 13 (12-20); Aspartate Amino Transferase 24 U/L (5-31); Blood Urea Nitrogen 15 mg/dL (9-16); Calcium 9.3 mg/dL (8.4-10.2); Carbon Dioxide 26 mmol/L (22-29); Chloride 106 mmol/L (96-108); Cholesterol 170 mg/dL (<200); Estimated Glomerular Filt Rate > 60; HDL Cholesterol 55 mg/dL (>40); Potassium 4.2 mmol/L (3.3-5.1); Sodium 141 mmol/L (135-145); Total Protein 7.0 g/dL (6.5-8.0); Triglycerides 121 mg/dL (<150)
[2025-03-10 11:08] LABS: Folate 10.7 ng/mL (> or = 4.0); Vitamin B12 317 pg/mL (200-900)
[2025-03-10 16:06] LABS: Appearance Urine Clear; Glucose Urine UA Negative (Negative); PH 5.0 (5.0-9.0); Specific Gravity - Urine 1.025 (1.005-1.025); UMIC TRIGGER UACC YES
[2025-03-10 16:10] LABS: UACC Culture Trigger YES
== END 2025-03-10 07:54 | disposition home or self-care (01) ==
LOC: HO.HMGCLDS 07:53
PROVIDERS: PCP Internal Medicine; Visit Provider Internal Medicine Hypertension Specialist
DX: E87.1 Hypo-osmolality and hyponatremia (principal); E55.9 Vitamin D deficiency, unspecified; E53.8 Deficiency of other specified B group vitamins; D64.9 Anemia, unspecified; E78.00 Pure hypercholesterolemia, unspecified; F41.9 Anxiety disorder, unspecified; I10 Essential (primary) hypertension; E03.9 Hypothyroidism, unspecified; I49.1 Atrial premature depolarization; M17.12 Unilateral primary osteoarthritis, left knee; M50.30 Other cervical disc degeneration, unspecified cervical region; C50.912 Malignant neoplasm of unspecified site of left female breast; Z17.0 Estrogen receptor positive status [ER+]; M85.80 Other specified disorders of bone density and structure, unspecified site; G40.909 Epilepsy, unspecified, not intractable, without status epilepticus; K59.00 Constipation, unspecified; N32.81 Overactive bladder; L57.0 Actinic keratosis; G47.00 Insomnia, unspecified; F32.9 Major depressive disorder, single episode, unspecified; E66.3 Overweight; R30.0 Dysuria; Z68.28 Body mass index [BMI] 28.0-28.9, adult
CPT/HCPCS: 36415; 80053; 80061; 81001; 82306; 82607; 82746; 84443; 85025; 87086; 96127; 99212

== ENCOUNTER 2025-03-10 14:21 | Outpatient (AMB) | payer MEDICARE, SELFPAY ==
--- NOTE | 2025-03-10 14:34 | MHC.PC.OV ---
Vital Signs 03/10/25 14:35 Height 5 ft 3 in Weight 162 lb BMI 28.7 BP 128/62 Blood Pressure Location Lt brachial Position Sitting Pulse 71 Pulse Source Pulse Oximeter Pulse Oximetry (%) 93 Oxygen Delivery Method Room Air Intake Visit Reasons: hyperlipidemia, OA, anxiety, Ash Ash disease Allergies phenytoin (Dilantin) Allergy (Severe, Verified 03/10/25 15:08) Hives sertraline (SERTRALINE) Allergy (Severe, Verified 03/10/25 15:08) DROPPED SODIUM LEVEL, BP increase Sodium drop trazodone Allergy (Severe, Verified 03/10/25 15:08) respiratory depression aspirin (ASPIRIN) Allergy (Intermediate, Verified 03/10/25 15:08) RISK OF BLEDING NSAIDS (Non-Steroidal Anti-Inflamma Allergy (Unknown, Verified 03/10/25 15:08) risk of bleeding Medication List - Last Reconciled 03/10/25 by Kelvin Pruett MD acetaminophen 650 mg (2 x 325 mg) PO Q6H PRN 30 days amlodipine 10 mg See Protocol PO DAILY 90 days atenolol 50 mg PO DAILY atorvastatin 80 mg PO BEDTIME clonidine HCl 0.1 mg PO BEDTIME 90 days docusate sodium 100 mg PO DAILY PRN 30 days irbesartan 300 mg PO DAILY levothyroxine 50 mcg PO DAILY@0600 lorazepam 0.5 mg PO BEDTIME lorazepam 0.5 mg PO BID PRN 30 days mirtazapine 15 mg PO BEDTIME 90 days oxcarbazepine 450 mg PO BEDTIME oxcarbazepine Take 1 tablet in the morning and 2 tablets in the evening; 90 days oxycodone-acetaminophen 5-325 mg (Percocet) 1 tab PO Q4-6H PRN polyethylene glycol 3350 (Miralax) 17 grams PO DAILY PRN walker Folding front wheeled walker Tobacco use date assessed: 06/25/24 Fall risk assessment: No Falls in past year Dental Screening Dental Screen Date: 06/25/24 Did you have a dental visit in the last 12 months?: Yes Did you have a dental problem in the last 6 months where you did not have access to dental care?: No Was dental information given to patient?: Patient has dentist HPI hyperlipidemia, OA, anxiety, Ash Ash disease HPI Details Patient comes in today for her follow up visit States that she feels okay but has been experiencing increased anxiety lately despite her current Rx She denies any headaches or dizziness Denies any chest pains, no increased SOB No nausea/vomiting, no abdominal pain No change in bowel habits noted She had her follow up labs done earlier today - to discuss her results [facility] Medical History Seasonal allergies Osteopenia Constipation Acquired hypothyroidism Overweight (BMI 25.0-29.9) Cataract Seizures Stroke (~2000) Ash ash disease (~2000) Urinary frequency Allergic rhinitis Degenerative disc disease, cervical Neck pain Depression Anxiety Insomnia Epilepsy Obesity (BMI 30-39.9) Osteoarthritis Benign essential hypertension Pure hypercholesterolemia Rib pain on right side Left shoulder pain Recurrent dry cough Pain of right scapula Right-sided thoracic back pain Surgical History History of left knee replacement H/O breast surgery Hx of colonoscopy History of kidney surgery Status post cervical disc replacement History of knee replacement procedure of right knee Hx of knee surgery Family History Father Chronic mental illness Mother Hypertension Other Mental health problem Social History Household Members: None Housing: House Are you a primary social worker palliative care to a significant other at home: No Do you presently have visiting nurse or other home services: Yes Alcohol intake: current Alcohol intake frequency: holidays/special occasions only Alcohol type: beer Comment: not documented previous shift Patient Tobacco Use Status: Former Tobacco user Tobacco use type: Cigarette Years Smoked: 10 e-Cigarette/Vaping Use: Never Used Second Hand Smoke Exposure: No Advance Directives Date on File: 05/23/23 service: No Current occupational status: retired Cognitive needs: Yes (Walker) Hearing needs: No Vision needs: No Questionnaire PHQ-9 Over the last 2 weeks, how often have you been bothered by any of the following problems? 1. Little interest or pleasure in doing things: not at all 2. Feeling down, depressed, or hopeless: not at all 3. Trouble falling or staying asleep, or sleeping too much: not at all 4. Feeling tired or having little energy: not at all 5. Poor appetite or overeating: not at all 6. Feeling bad about yourself - or that you are a failure or have let yourself or your family down: not at all 7. Trouble concentrating on things, such as reading the newspaper or watching television: not at all 8. Moving or speaking so slowly that other people could have noticed. Or the opposite - being so fidgety or restless that you have been moving around a lot more than usual: not at all 9. Thoughts that you would be better off or of hurting yourself in some way: not at all Total score: 0 Depression Screening Interpretation: Negative Depression Screening Done: Yes 83409 - PHQ-9 Billing: Yes Source: Developed by Drs. Michoacano Hanson, Dayanna Car, Javier Spain and colleagues, with an educational zach from [employer]. Thrive Questionnaire Date Thrive assessed: 09/09/24 I am a: Patient What is your living situation today?: I have a steady place to live Within the past 12 months, did the food you bought not last and you didn't have the money to get more?: Never true Within the past 12 months, did you worry whether your food would run out before you got money to buy more?: Never true Do you have trouble paying for medicines?: No Do you have trouble getting transportation to medical appointments?: No Do you have trouble paying your heating and electricity bill?: No Do you have trouble taking care of your child, family member or friend?: No Do you have trouble with day-to-day activities such as bathing, preparing meals, shopping, managing finances, etc.?: No Are you currently unemployed and looking for a job?: No Are you interested in more education?: No Please select the resources that you would like help with: None Currently or been in a relationship where the following occur: I choose not to answer THRIVE Score: 0 AUDIT C Alcohol Use Questionnaire (AUDIT-C) 1. How often do you have a drink containing alcohol?: Monthly or less 2. How many drinks containing alcohol do you have on a typical day when you are drinking?: 1 or 2 3. How often do you have six or more drinks on one occasion?: Never Total Score: 1 Score Reviewed/Action Taken: Yes FEI-7 AMB Questionnaire FEI-7 Date FEI - 7 assessed: 09/09/24 Feeling nervous, anxious, or on edge: 0 = Not at all Not being able to stop or control worryin = Not at all Worrying too much about different things: 0 = Not at all Trouble relaxin = Not at all Being so restless that it is hard to sit still: 0 = Not at all Becoming easily annoyed or irritable: 0 = Not at all Feeling afraid as if something awful might happen: 0 = Not at all Total FEI-7 score (0-4 normal; 5-9 mild; 10-14 moderate; 15-21 severe): 0 Source: Developed by Drs. Michoacano Hanson, Dayanna Car, Javier Spain and colleagues, with an educational zach from [employer]. Review of Systems Const Denies chills, Reports difficulty sleeping (after she wakes up in the middle of the night), Reports fatigue, Denies fever(s) and Denies headache(s) ENT Denies dysphagia, Denies dizziness, Denies otalgia, Denies headache(s), Reports neck pain (chronic), Denies odynophagia and Denies sore throat Card Denies chest pain, Denies palpitations and Denies dyspnea Resp Denies chest congestion, Denies cough and Denies dyspnea GI Denies abdominal pain, Denies constipation, Denies dysphagia, Denies heartburn, Denies diarrhea, Denies nausea, Denies odynophagia and Denies vomiting Denies difficulty voiding, Reports nocturia, Denies dysuria and Denies urinary urgency Musc Reports back pain, Reports arthralgias (left knee, on and off, mostly over the anteromedial aspect of the knee), Denies joint swelling and Reports neck pain (chronic) Skin/Breast Denies rash Neuro Denies dizziness and Denies headache(s) Psych Reports anxiety Endo Reports fatigue and Denies palpitations Physical exam (Primary Care) Vital Signs: Last Vital Signs Pulse 71 03/10/25 14:35 BP 128/62 03/10/25 14:35 Pulse Ox 93 03/10/25 14:35 Oxygen Delivery Method Room Air 03/10/25 14:35 BMI result Body Mass Index 28.7 Tobacco/Smoking Status: Tobacco use Status Tobacco use date assessed 06/25/24 03/10/25 14:36 Patient Tobacco Use Status Former Tobacco user 03/10/25 14:36 Tobacco use type Cigarette 03/10/25 14:36 e-Cigarette/Vaping Use Never Used 03/10/25 14:36 PHQ-9: PHQ-9 Score PHQ-9: Total score 0 03/10/25 15:21 Depression Screening Interpretation: Negative Thrive Assessment: Date of Thrive Assessment Date Thrive assessed 09/09/24 03/10/25 14:36 Currently or been in a relationship where the following occur: I choose not to answer Const General: no acute distress and alert HENMT Throat: Yes posterior oropharynx normal and Yes tonsils normal (no TP congestion ) Neck Neck: No lymphadenopathy and Yes tender Thyroid: Thyroid normal Resp Auscultation: clear to auscultation bilaterally, no rales and no wheezes Cardio Rate: regular rate Rhythm: regular rhythm Heart sounds: no murmurs GI Palpation (GI): Soft to palpation and nontender Auscultation: normal bowel sounds General: Yes no CVA tenderness Back/Spine/Pelvis Back: no CVA tenderness Cervical Spine: Cervical spine tenderness Thoracic/Lumbar Spine: lumbar spinal tenderness Skin Other: (+) keratotic lesion on the anterior chest wall Rashes: no rashes Extrem General: Yes no clubbing, cyanosis or edema Left lower extremity: knee Details: tenderness and crepitus; no swelling Results Reviewed Results Reviewed: Laboratory Tests 03/10/25 07:58 WBC 7.0 Hgb 11.2 L Hct 35.0 L Plt Count 267 D Sodium 141 Potassium 4.2 Creatinine 0.87 Estimated GFR > 60 Fasting Glucose 106 H Calcium 9.3 AST 24 ALT 21 Triglycerides 121 Cholesterol 170 LDL Cholesterol, Calc 91 HDL Cholesterol 55 Vitamin B12 317 25-OH Vitamin D Total 63.3 TSH 1.47 Coding Level of Care Code Est Pt Level 4 (56722) Diagnoses Pure hypercholesterolemia E78.00 Benign essential hypertension I10 Acquired hypothyroidism E03.9 Hyponatremia E87.1 PAC (premature atrial contraction) I49.1 Primary osteoarthritis of left knee M17.12 Osteoarthritis type: primary Degenerative disc disease, cervical M50.30 Malignant neoplasm of left breast in female, estrogen receptor positive, unspecified site of breast C50.912; Z17.0 Breast location: unspecified site of breast Estrogen receptor status: positive Patient sex: female Anemia, unspecified type D64.9 Anemia type: unspecified type Osteopenia, unspecified location M85.80 Osteopenia location: unspecified Nonintractable epilepsy without status epilepticus, unspecified epilepsy type G40.909 Epilepsy type: unspecified Intractability: not intractable Status epilepticus: without status epilepticus Constipation, unspecified constipation type K59.00 Constipation type: unspecified constipation type Overactive bladder N32.81 Keratotic lesion L57.0 Insomnia, unspecified type G47.00 Insomnia type: unspecified Anxiety F41.9 Depression, unspecified depression type F32.9 Depression Type: unspecified Overweight (BMI 25.0-29.9) E66.3 Additional Codes PHQ-9 - 80125 - PHQ-9 Billing: Yes ([id number]) Assessment & Plan Assessment & Plan (1) Pure hypercholesterolemia: Code(s): E78.00 - Pure hypercholesterolemia, unspecified Category: Medical Plan: Results of her labs done earlier this morning reviewed and discussed with patient Reinforced low cholesterol diet Continue Atorvastatin 80 mg QD Will have her recheck her labs and fasting lipids in 4 months for follow up (2) Benign essential hypertension: Code(s): I10 - Essential (primary) hypertension Category: Medical Plan: Reinforced low sodium diet - goal is systolic BP of at least 130 mm or less Continue Atenolol 50 mg QD, Amlodipine 10 mg QD, Irbesartan 300 mg QD and Clonidine 0.1 mg Q HS She is reminded to continue monitoring her blood pressure regularly (3) Acquired hypothyroidism: Code(s): E03.9 - Hypothyroidism, unspecified Category: Medical Plan: Her TFTs were normal on her labs done earlier today Continue Levothyroxine 50 mcg QD Will recheck her TFTs in 4 months for follow up (4) Hyponatremia: Code(s): E87.1 - Hypo-osmolality and hyponatremia Category: Medical Plan: Her serum sodium was normal at 141 on her labs done earlier today Patient has been advised by nephrology that her recurrent hyponatremia is likely from decreased free water clearance due to non-osmotic ADH release and that her Oxcarbazepine may be contributing to this and that considerations may be needed to try finding an alternative Rx if corrective measures are not successful She has been instructed to limit her free water intake and substitute that with Gatorade or Powerade instead, which she has been doing, and to also stay on a regular salt diet and these seem to be working as her serum sodium level has been normal more often than not over the past couple of years Will continue to monitor her serum sodium level regularly (5) PAC (premature atrial contraction): Code(s): I49.1 - Atrial premature depolarization Category: Medical Plan: Her EKG done back in April 2023 revealed sinus rhythm with Premature atrial complexes and minimal voltage criteria for LVH, which may be normal variant ( R in aVL ) Repeat 12-lead EKG done on 12/06/2023 showed (+) NSR with sinus arrhythmia, with no PACs noted currently (6) Osteoarthritis of left knee: Code(s): M17.12 - Unilateral primary osteoarthritis, left knee Category: Medical Qualifiers: Osteoarthritis type: primary Qualified Code(s): M17.12 - Unilateral primary osteoarthritis, left knee Plan: She had right knee arthroplasty back in 2015 and her right knee is currently still doing well without any significant issue S/P total left knee arthroplasty (under general anesthesia) with Dr. No last year on 12/06/2023 Patient states that she also went and completed PT and OT for her left knee but she continues to experience recurrent pain especially over the anteromedial aspect of the knee Follow up with orthopedics as scheduled (7) Degenerative disc disease, cervical: Comment: S/P anterior fusion of C5-C7 in 2011 Code(s): M50.30 - Other cervical disc degeneration, unspecified cervical region Category: Medical Plan: Patient states that her neck pain has been manageable lately Cervical spine x-rays done in September 2020 revealed stable post-surgical changes and some mild degenerative changes in the cervical spine Will consider referring her again to physical therapy if her neck pain flares up (8) Breast cancer, left: Comment: 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; stage I ([id number]), grade 1, ER positive, NE positive, HER2 negative - diagnosed in January 2023 Code(s): C50.912 - Malignant neoplasm of unspecified site of left female breast Category: Surgical Qualifiers: Breast location: unspecified site of breast Estrogen receptor status: positive Patient sex: female Qualified Code(s): C50.912 - Malignant neoplasm of unspecified site of left female breast; Z17.0 - Estrogen receptor positive status [ER+] Plan: Patient was diagnosed with invasive lobular carcinoma of the left breast in January 2023 after her routine mammogram revealed (+) calcifications and Bx done came back positive for breast cancer She has since undergone lumpectomy with negative margins She was referred to hematology/oncology and radiation oncology at [facility] (per request) and was started on Letrozole 1 mg QD, which she was advised to continue on for at least 5 years She was seen by radiation oncology at [facility] in late 2022 for consultation as to whether she will require radiation therapy or not - her appointment was delayed when she developed RSV over the holidays at the time and when she was finally seen by Radiation Oncology, she was advised that she was no longer in the treatment window for radiation therapy to benefit her She will need to continue with annual mammography for continuing surveillance and to follow up with oncology as scheduled (9) Anemia: Code(s): D64.9 - Anemia, unspecified Category: Medical Qualifiers: Anemia type: unspecified type Qualified Code(s): D64.9 - Anemia, unspecified Plan: Mild; stable She has been consistently (mildly) anemic for the past couple of years but her RBC indices are normal H/H was at 11.2/35.0 on her labs done earlier today Will continue to monitor her CBC regularly and consider referral to hematology for further evaluation if this progresses (10) Osteopenia: Code(s): M85.80 - Other specified disorders of bone density and structure, unspecified site Category: Medical Qualifiers: Osteopenia location: unspecified Qualified Code(s): M85.80 - Other specified disorders of bone density and structure, unspecified site Plan: Her most recent BMD done at [facility] on 07/14/2023 revealed (+) osteopenia with a T-score of -1.8 at the lumbar spine, -0.8 the left hip and -0.9 at the left femoral neck She is advised to continue taking her vitamin D and calcium supplements daily Fall precautions reinforced (11) Epilepsy: Code(s): G40.909 - Epilepsy, unspecified, not intractable, without status epilepticus Category: Medical Qualifiers: Epilepsy type: unspecified Intractability: not intractable Status epilepticus: without status epilepticus Qualified Code(s): G40.909 - Epilepsy, unspecified, not intractable, without status epilepticus Plan: Stable with no recent recurrence Continue Trileptal 300 mg 1 tablet Q AM and 2 tablets Q PM 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 and was taking Aspirin daily for a while but she stopped taking this many years ago Follow up with neurology as scheduled (12) Constipation: Code(s): K59.00 - Constipation, unspecified Category: Medical Qualifiers: Constipation type: unspecified constipation type Qualified Code(s): K59.00 - Constipation, unspecified Plan: She is encouraged again on increased oral fluids and dietary fiber Continue Senna 8.6 mg Q HS PRN Have advised patient as well in the past that her opioid Rx may also be contributing to her constipation (13) Overactive bladder: Code(s): N32.81 - Overactive bladder Category: Medical Plan: Have advised her that this may also be a reason for her recent nocturia and if she wants to, we can try her on some Rx for this later on Patient has declined in the past and continues to do so - states that she prefers not to take any more medications at this time (14) Keratotic lesion: Code(s): L57.0 - Actinic keratosis Category: Medical Plan: Will refer her to dermatology for further evaluation and management of the keratotic lesion on the anterior chest wall (15) Insomnia: Code(s): G47.00 - Insomnia, unspecified Category: Medical Qualifiers: Insomnia type: unspecified Qualified Code(s): G47.00 - Insomnia, unspecified Plan: Sleep hygiene reinforced Continue Trazodone 100 mg 1.5 tablets (150 mg) Q HS PRN; she also takes Mirtazapine at bedtime and this may also be helping with her sleep (16) Anxiety: Code(s): F41.9 - Anxiety disorder, unspecified Category: Medical Plan: Continue Lorazepam 0.5 mg 1 to 2 tablets once a day at bedtime as needed Will increase her Mirtazapine to 30 mg Q HS (17) Depression: Code(s): F32.9 - Major depressive disorder, single episode, unspecified Category: Medical Qualifiers: Depression Type: unspecified Qualified Code(s): F32.9 - Major depressive disorder, single episode, unspecified Plan: Continue Mirtazapine but dose will be increased to 30 mg Q HS (18) Overweight (BMI 25.0-29.9): Code(s): E66.3 - Overweight Category: Medical Plan: Reinforced diet/exercise as tolerated/lose weight, although due to her age, comorbidites and physical condition/issues, her activity and exercise tolerance is limited Plan Follow up in 4 months Orders: Orders Comprehensive [place]. Panel Fast 4 Months E78.00 - Pure hypercholesterolemia, unspecified UA CC w/rflx Micro + Cult 4 Months R30.0 - Dysuria Complete Blood Count Auto Diff 4 Months D64.9 - Anemia, unspecified Lipid Panel 4 Months E78.00 - Pure hypercholesterolemia, unspecified Referrals Dermatology Referral L57.0 - Actinic keratosis Medications: Changed From mirtazapine 15 mg PO BEDTIME 90 days 90 tabs 0RF To mirtazapine 30 mg PO BEDTIME 90 tabs 0RF 90 days
[2025-03-10 14:35] VITALS: BP 128/62; PULSE 71; O2SAT 93; BMI 28.7
== END 2025-03-10 15:31 | disposition home or self-care (01) ==
LOC: HO.HMCH 14:22
PROVIDERS: Visit Provider Internal Medicine
DX: E78.00 Pure hypercholesterolemia, unspecified (principal); I10 Essential (primary) hypertension; E03.9 Hypothyroidism, unspecified; E87.1 Hypo-osmolality and hyponatremia; I49.1 Atrial premature depolarization; M17.12 Unilateral primary osteoarthritis, left knee; M50.30 Other cervical disc degeneration, unspecified cervical region; C50.912 Malignant neoplasm of unspecified site of left female breast; Z17.0 Estrogen receptor positive status [ER+]; D64.9 Anemia, unspecified; M85.80 Other specified disorders of bone density and structure, unspecified site; G40.909 Epilepsy, unspecified, not intractable, without status epilepticus; K59.00 Constipation, unspecified; N32.81 Overactive bladder; L57.0 Actinic keratosis; G47.00 Insomnia, unspecified; F41.9 Anxiety disorder, unspecified; F32.9 Major depressive disorder, single episode, unspecified; E66.3 Overweight

== ENCOUNTER 2025-03-19 13:30 | Outpatient (AMB) | payer MEDICARE, SELFPAY ==
--- NOTE | 2025-03-19 13:32 | A.OFFVIS_ITS ---
Vital Signs 03/19/25 13:33 Height 5 ft 3 in Weight 164 lb BMI 29.0 Intake Visit Reasons: mammo 02/26/2025 ([place]ir[place] pt) Intake Note: Patient presents for an assessment for breast exam. Pt c/o; occasional burning sensation left breast, no discharge from nipple, no redness. 11/13/2024:[place] 02/26/2025: Breast US mammo State Manager Required: No Accompanied by: Self / Same As Patient Allergies phenytoin (Dilantin) Allergy (Severe, Verified 03/19/25 13:41) Hives sertraline (SERTRALINE) Allergy (Severe, Verified 03/19/25 13:41) DROPPED SODIUM LEVEL, BP increase Sodium drop trazodone Allergy (Severe, Verified 03/19/25 13:41) respiratory depression aspirin (ASPIRIN) Allergy (Intermediate, Verified 03/19/25 13:41) RISK OF BLEDING NSAIDS (Non-Steroidal Anti-Inflamma Allergy (Unknown, Verified 03/19/25 13:41) risk of bleeding HPI HPI mammo 02/26/2025 (Gir[place] pt): Details: She had undergone lumpectomy and sentinel node biopsy in 2022 for a T1 N0 with Dr. Stout for invasive ductal carcinoma. She apparently had complained of pain on the old surgical site so she had imaging studies earlier this month with on ultrasound and mammogram. She denies any palpable mass. She says she feels well overall. She denies any changes on her breast. [facility] Medical History History of breast cancer Seasonal allergies Osteopenia Constipation Acquired hypothyroidism Overweight (BMI 25.0-29.9) Cataract Seizures Stroke (~2000) Ash ash disease (~2000) Urinary frequency Allergic rhinitis Degenerative disc disease, cervical Neck pain Depression Anxiety Insomnia Epilepsy Obesity (BMI 30-39.9) Osteoarthritis Benign essential hypertension Pure hypercholesterolemia Rib pain on right side Left shoulder pain Recurrent dry cough Pain of right scapula Right-sided thoracic back pain Surgical History History of left knee replacement H/O breast surgery Hx of colonoscopy History of kidney surgery Status post cervical disc replacement History of knee replacement procedure of right knee Hx of knee surgery Family History Father Chronic mental illness Mother Hypertension Other Mental health problem Social History Household Members: None Housing: House Are you a primary rn home care to a significant other at home: No Do you presently have visiting nurse or other home services: Yes Alcohol intake: current Alcohol intake frequency: holidays/special occasions only Alcohol type: beer Comment: not documented previous shift Patient Tobacco Use Status: Former Tobacco user Tobacco use type: Cigarette Years Smoked: 10 e-Cigarette/Vaping Use: Never Used Second Hand Smoke Exposure: No Advance Directives Date on File: 05/23/23 service: No Current occupational status: retired Cognitive needs: Yes (Walker) Hearing needs: No Vision needs: No Review of Systems Const Denies chills and Denies fever(s) Card Denies chest pain, Denies dyspnea and Denies dyspnea on exertion Resp Denies cough, Denies dyspnea and Denies dyspnea on exertion GI Denies hematochezia and Denies change in bowel habits Denies hematuria Musc Denies back pain and Denies limited range of motion Neuro Denies focal weakness and Denies convulsions Psych Denies depression and Denies mood swings Physical Exam Vital Signs: BMI result Body Mass Index 29.0 Const General: comfortable and no acute distress Orientation/consciousness: patient oriented x3 Neck Neck: Yes no lymphadenopathy Chest Other: No palpable breast masses, no axillary lymphadenopathy, no nipple or skin panda es Resp Auscultation: clear to auscultation bilaterally Cardio Rhythm: regular rhythm GI Palpation (GI): Soft to palpation, nontender and no guarding Neuro General: patient oriented x3 Assessment & Plan Assessment & Plan (1) History of breast cancer: Code(s): Z85.3 - Personal history of malignant neoplasm of breast Category: Medical Plan She had breast pain on the left side at the surgical site and had an ultrasound and mammogram done earlier this month. These studies do not suggest any mass. A 1 year follow up mammogram has been recommended. I reviewed with her the results I told her that I do not feel any palpable mass or any suspicious findings either on physical exam She seems to understand the above well. She can always follow up with me on a p.r.n. basis. Coding Level of Care Code Est Pt Level 3 (74762) Diagnoses History of breast cancer Z85.3
[2025-03-19 13:33] VITALS: BMI 29.0
--- OUTSIDE RECORDS SUMMARY | 2025-03-19 19:11 | XMS_ITS | Patient Health Record ---
[facility] Organization [facility] Address [address] [place] [id number] Care Team Providers Care Biology Specimen Technician Name Role Phone Flynn VEGA, Kelvin Primary [...] Status W/U Status Risk Notes Problem Cough (38866347) Cough (786.2) Active confirmed Problem Rectal bleeding (57993950) Rectal bleeding (569.3) Active confirmed Problem Colon cancer screening (245180735) Colon cancer screening (Z12.11) Active confirmed Plan [...] OF [place] [address] [place] [address] [id number] TL [place] Self - patient is the insured [employer] ATT[employer] CLAIMS [address] [place] [address] [phone] [id number] TL [place] Self - patient is the [...]
--- OUTSIDE RECORDS SUMMARY | 2025-03-19 19:11 | XMS_ITS | Patient Health Record ---
Author Organization [facility] Abdullahi Address [address] [place] [address] Care Team Providers Care Weight Recorder Name Role Phone Kelvin Pruett MD Primary Care Provider Naren Serrano Unavailable [phone] Allergies Allergen (clinical drug ingredient) Drug/Non Drug [...] primary osteoarthritis of the ankle and/or foot (618253478) Primary osteoarthrit is, right ankle and foot (M19.071) Active confirmed Plan Of Treatment Pending Test Test Name Order Date X ray : Foot, right 3V 03/01/201959555, J0702- INJECT TENDON ORIGIN/INSER T 08/28/2019, J0702- INJECT or DRAIN, JOINT/BUR SA 10/02/2019, J0702- INJECT or DRAIN, JOINT/BUR SA 05/13/201919990,[id number] TENDON SHEATH/LIGAMENT 1 Insurance Providers Payer Name Payer Address Payer Phone Subscriber Number Group Number Insured Name Patient Relationship to Insured Coverage Start Date Coverage End Date Medicare National [employer] [address] [place] [address] [id number] Jennie Stone Self - patient is the insured [employer] [address] [place] [address] [id number] Jennie Stone Self - patient is the insured Medical (General) History Medical History History ICD Code Anxiety Back,Hip,and Knee pain Epilepsy Headaches/Migraines High blood pressure Joint implants/screws Surgical History Surgery Date(Month/Year) knee surgery 2016 neck surgery kidney surgery [place] History Reason Date([place] [facility] [place]
== END 2025-03-19 13:53 | disposition home or self-care (01) ==
LOC: HO.HGS 13:31
PROVIDERS: PCP Internal Medicine; Visit Provider Surgery
DX: Z85.3 Personal history of malignant neoplasm of breast (principal)
CPT/HCPCS: 99213

== ENCOUNTER → 2025-03-19 13:30 | Outpatient (BNVA) | payer MEDICARE, SELFPAY | PROVIDERS: PCP Internal Medicine; Visit Provider Surgery | DX: Z85.3 Personal history of malignant neoplasm of breast (principal) | CPT/HCPCS: 99212 ==